=== PATIENT | female | born 1995 | race Caucasian/White ===

== ENCOUNTER 2020-08-08 15:15 | Emergency (ER) | payer OTHER, SELFPAY ==
--- NOTE | 2020-08-08 | ECG_ITS ---
Test Reason : CHEST PAIN Blood Pressure : / mmHG Vent. Rate : 085 BPM Atrial Rate : 085 BPM P-R Int : 122 ms QRS Dur : 098 ms QT Int : 362 ms P-R-T Axes : 055 063 045 degrees QTc Int : 430 ms Normal sinus rhythm Normal ECG When compared with ECG of 22-AUG-2019 09:19, No significant change was found Referred By: Generic ED Physician Electronically Signed By:MOIRA DURAND
--- NOTE | 2020-08-08 17:18 | XR_ITS ---
EXAMINATION: XR CHEST CLINICAL INFORMATION: Chest pain. COMPARISON: None TECHNIQUE: Frontal view of the chest was obtained. FINDINGS: The lungs are clear. The cardiomediastinal silhouette is normal in size. There is no pleural effusion or pneumothorax. No acute osseous abnormality. XR/XR chest 1V IMPRESSION: No acute cardiopulmonary findings.
[2020-08-08 19:04] VITALS: BP 119/67; PULSE 80; RESP 16; TEMP 36.9; O2SAT 98
[2020-08-08 19:15] VITALS: BP 138/85; PULSE 91; RESP 15; TEMP 37; O2SAT 99; BMI 33.4
[2020-08-08 19:45] LABS: MANUAL DIFF FLAG NO
[2020-08-08 19:46] LABS: Basophils Percent Auto 0.3 % (0-2); Eosinophils Absolute Auto 0.1 X10*3/uL (0.0-0.4); Hematocrit 40.3 % (37-47); Hemoglobin 13.3 g/dl (12.0-16.0); Imm Gran Abs Auto 0.03 X10*3/uL (0.00-0.03); Imm Gran Pct Auto 0.3 % (0.0-0.4); Lymphocytes Absolute Auto 3.2 X10*3/uL (1.2-4.9); Lymphocytes Percent Auto 31.6 % (20-40); Mean Corpuscular Volume 81.9 fL (80-98); Mean Platelet Volume 9.9 fL (9.4-12.3); Monocytes Absolute Auto 0.9 X10*3/uL (0.1-1.2); Neutrophils Absolute Auto 5.8 X10*3/uL (2.0-8.3); Neutrophils Percent Auto 57.8 % (45-73); Platelet Count 393 X10*3/uL (160-400); Red Blood Count 4.92 X10*6/uL (4.20-5.50); Red Cell Distribution Width 12.1 % (11.0-16.0); White Blood Count 10.1 X10*3/uL (4.8-10.8)
[2020-08-08 20:10] LABS: Anion Gap 12 (12-20); Blood Urea Nitrogen 11 mg/dL (9-16); Calcium 9.1 mg/dL (8.4-10.2); Carbon Dioxide 27 mmol/L (22-29); Chloride 104 mmol/L (96-108); Estimated Glomerular Filt Rate > 60; Glucose Random 85 mg/dL (60-115); Potassium 4.3 mmol/l (3.3-5.1); Sodium 139 mmol/L (135-145)
--- NOTE | 2020-08-08 20:12 | ED_ITS ---
HPI - Chest Pain General Chief Complaint: Chest Pain Stated Complaint: Chest pain Time Seen by Provider: 08/08/20 17:17 Source: patient Mode of arrival: ambulatory Limitations: no limitations History of Present Illness MD complaint: chest pain Pertinent past history: other (chronic chest pain) Onset (ago): day(s) (has been going on for long time but worse over past 3 days) Timing of current episode: constant Prior episodes: Yes Onset: during rest and during exertion Pain location: left chest Pain radiation: none Severity: similar to previous episodes Quality: tightness, aching and heaviness Relieving factors: nothing Exacerbating factors: palpation and movement Associated symptoms: nausea and dyspnea Treatment prior to arrival: none Related Data Previous Rx's Medication Instructions Recorded cyclobenzaprine 10 mg PO TID PRN #14 tab 08/08/20 lidocaine 1 patch TOPICAL DAILY PRN #10 ea 08/08/20 prednisone 40 mg PO DAILY 5 Days #10 tab 08/08/20 Allergies Allergy/AdvReac Type Severity Reaction Status Date / Time Sulfa (Sulfonamide Allergy Unknown SWOLLEN/CAMILA Verified 08/08/20 19:36 Antibiotics) H [SULFA (SULFONAMIDE ANTIBIOTICS)] oxycodone [From OXYCONTIN] AdvReac Unknown UNKNOWN Verified 08/08/20 19:36 Review of Systems Review of Systems: Constitutional : No Weight loss, No Fever, No Chills ENT/Mouth : No sore throat, No Rhinorrhea Eyes: No Eye Pain, No Swelling Cardiovascular : pos Chest Pain, pos SOB, no Dyspnea on Exertion, No Orthopnea, No Edema, No Palpitations Respiratory : No Cough, No Sputum Gastrointestinal : pos Nausea, No Vomiting, No Diarrhea, No abdominal Pain, No Hematochezia, No Melena Genitourinary : No Dysuria, No Urinary Frequency Musculoskeletal : No joint pain, No Myalgias, No Joint Swelling Skin : No Skin Lesions, No rash Neuro : No Weakness, No Numbness, No Dizziness, No Headache Psych : No Anxiety/Panic, No Depression Heme/Lymph: No Bruising, No Lymphadenopathy Endocrine : No Polyuria, No Polydipsia All other systems reviewed and are negative [facility] Past Medical History Attestation statement: The following information was validated with the patient. Medical History Asthma Normal colonoscopy Normal endoscopy Social History Social History Smoking Status: Never smoker Advance Directives: No Advance Directives Information Provided: Yes Physical Exam Vital Signs: Vital Signs: Last Vital Signs Temp 98.6 F 08/08/20 19:15 Pulse 91 08/08/20 19:15 Resp 15 08/08/20 19:15 BP 138/85 08/08/20 19:15 Pulse Ox 99 08/08/20 19:15 Body Mass Index 33.4 Appearance: Alert. Oriented X3. No acute distress. Eyes: Pupils equal, round and reactive to light. ENT: Pharynx normal. Neck: Normal inspection. Neck supple. CVS: Normal heart rate and rhythm. Pulses normal. Chest: very ttp along bilateral costochondral junction reproduces pain Respiratory: No respiratory distress. Breath sounds normal. Abdomen: Soft and nontender. Skin: Skin warm and dry. Normal skin color. Normal skin turgor. Extremities: No lower extremity edema. No calf ttp Neuro: Oriented X 3. No motor deficit. No sensory deficit. Course Course Course Narrative: ddimer negative at this time stable for DC MDM - Chest Pain MDM Narrative Medical decision making narrative: 25 yo female on control (patch) here with reproduceable CWP has had it in the past seems consistent with costochondritis - will give NSAIDs, flexeril - CXR, ekg, troponin x 1 and ddimer ordered due to brith control, dispo per results and findings. Lab Data Result diagrams: 08/08/20 19:35 08/08/20 19:35 Labs: Lab Results 08/08/20 08/08/20 08/08/20 Range/Units 19:35 19:35 19:35 WBC 10.1 (4.8-10.8) X10*3/uL RBC 4.92 (4.20-5.50) X10*6/uL Hgb 13.3 (12.0-16.0) g/dl Hct 40.3 (37-47) % MCV 81.9 (80-98) fL MCH 27.0 (27.0-33.0) pg MCHC 33.0 (31.0-35.0) g/dl RDW 12.1 (11.0-16.0) % Plt Count 393 (160-400) X10*3/uL MPV 9.9 (9.4-12.3) fL Immature Gran % (Auto) 0.3 (0.0-0.4) % Neut % (Auto) 57.8 (45-73) % Lymph % (Auto) 31.6 (20-40) % Forrest % (Auto) 9.0 (2-11) % Eos % (Auto) 1.0 (0-4) % Baso % (Auto) 0.3 (0-2) % Lymph # (Auto) 3.2 (1.2-4.9) X10*3/uL Forrest # (Auto) 0.9 (0.1-1.2) X10*3/uL Eos # (Auto) 0.1 (0.0-0.4) X10*3/uL Baso # (Auto) 0.0 (0.0-0.2) X10*3/uL Abs Immat Gran (auto) 0.03 (0.00-0.03) X10*3/uL Absolute Neuts (auto) 5.8 (2.0-8.3) X10*3/uL Absolute Nucleated RBC 0.000 (0.0-0.012) X10*3/uL Nucleated RBC % (auto) 0.0 (0.0-0.2) /100WBC D-Dimer < 200 NG/ML Hold Blue Top SEE NOTE Sodium 139 (135-145) mmol/L Potassium 4.3 (3.3-5.1) mmol/l Chloride 104 (96-108) mmol/L Carbon Dioxide 27 (22-29) mmol/L Anion Gap 12 (12-20) BUN 11 (9-16) mg/dL Creatinine 0.73 (0.5-1.4) mg/dL Estim Creat Clear Calc 115.0 Estimated GFR > 60 Random Glucose 85 (60-115) mg/dL Calcium 9.1 (8.4-10.2) mg/dL Troponin I High Sens (<3.5-17.0) ng/L 08/08/20 Range/Units 19:35 WBC (4.8-10.8) X10*3/uL RBC (4.20-5.50) X10*6/uL Hgb (12.0-16.0) g/dl Hct (37-47) % MCV (80-98) fL MCH (27.0-33.0) pg MCHC (31.0-35.0) g/dl RDW (11.0-16.0) % Plt Count (160-400) X10*3/uL MPV (9.4-12.3) fL Immature Gran % (Auto) (0.0-0.4) % Neut % (Auto) (45-73) % Lymph % (Auto) (20-40) % Forrest % (Auto) (2-11) % Eos % (Auto) (0-4) % Baso % (Auto) (0-2) % Lymph # (Auto) (1.2-4.9) X10*3/uL Forrest # (Auto) (0.1-1.2) X10*3/uL Eos # (Auto) (0.0-0.4) X10*3/uL Baso # (Auto) (0.0-0.2) X10*3/uL Abs Immat Gran (auto) (0.00-0.03) X10*3/uL Absolute Neuts (auto) (2.0-8.3) X10*3/uL Absolute Nucleated RBC (0.0-0.012) X10*3/uL Nucleated RBC % (auto) (0.0-0.2) /100WBC D-Dimer NG/ML Hold Blue Top Sodium (135-145) mmol/L Potassium (3.3-5.1) mmol/l Chloride (96-108) mmol/L Carbon Dioxide (22-29) mmol/L Anion Gap (12-20) BUN (9-16) mg/dL Creatinine (0.5-1.4) mg/dL Estim Creat Clear Calc Estimated GFR Random Glucose (60-115) mg/dL Calcium (8.4-10.2) mg/dL Troponin I High Sens < 3.5 (<3.5-17.0) ng/L ECG Data ECG #1: Attestation: I personally reviewed and interpreted this ECG as follows: ECG interpretation date: 08/08/20 ECG interpretation time: 20:13 Interpretation: Rate: 85 Rhythm: NSR [place]: normal Normal P waves. Normal WILL. Normal QRS complex. ST T wave : normal no ENIO qTC: normal prior studies: no acute ischemia The study has been interpreted contemporaneously by me. . Discharge Plan Discharge Clinical Impression: Acute costochondritis Patient Disposition: Home, Self-Care Instructions: Costochondritis (ED) Additional Instructions: return to ED for any worsening symptoms or concerns Prescriptions: New cyclobenzaprine 10 mg tablet 10 mg PO TID PRN (Reason: muscle spasm) Qty: 14 RF: 0 lidocaine 4 % adhesive patch,medicated 1 patch topical DAILY PRN (Reason: pain) Qty: 10 RF: 0 prednisone 20 mg tablet 40 mg PO DAILY 5 Days Qty: 10 RF: 0 Referrals: Antione Blum MD [Primary Care Provider] - 2 days (if not better) Stand Alone Forms: Work/School Release
[2020-08-08 20:15] LABS: Troponin-I High Sensitivity < 3.5 ng/L (<3.5-17.0)
[2020-08-08 20:36] LABS: D Dimer < 200 NG/ML
[2020-08-08 20:51] LABS: Glucose Urine UA NEG (NEG); Leukocyte Esterase Urine NEG (NEG); Nitrite Urine NEG (NEG); PH 6.5 (5.0-8.0); Urine Blood NEG (NEG); Urine Ketones NEG (NEG); Urine Protein NEG (NEG-TRACE)
[2020-08-08 20:52] LABS: Appearance Urine HAZY; Color Urine YELLOW
[2020-08-08] MEDS: Ketorolac Tromethamine 30 MG/ML VIAL IVPUSH (20:54)
[2020-08-08] MEDS: Cyclobenzaprine HCl 10 MG TABLET PO (20:55)
[2020-08-08] MEDS: Lidocaine 4 % Patch ADH..PATCH 1 PATCH TRANSDERMA (20:55)
[2020-08-08 20:57] LABS: UPreg QC Valid YES; Urine Pregnancy NEGATIVE (NEGATIVE)
== END 2020-08-08 21:00 | disposition home or self-care (01) ==
PROVIDERS: Emergency Provider Emergency Medicine; PCP Pediatrics
DX: M94.0 Chondrocostal junction syndrome [Tietze] (principal); Z79.899 Other long term (current) drug therapy
CPT/HCPCS: 36415; 71045; 80048; 81003; 81025; 84484; 85025; 85379; 93005; 96374; 99284; J1885

== ENCOUNTER 2020-11-06 | Emergency (ER) | payer OTHER, SELFPAY ==
[2020-11-06 00:01] VITALS: BP 118/58; PULSE 79; RESP 16; TEMP 36.6; O2SAT 98; BMI 35.6
[2020-11-06 01:26] LABS: Glucose Urine UA NEG (NEG); Leukocyte Esterase Urine NEG (NEG); Nitrite Urine NEG (NEG); PH 5.5 (5.0-8.0); Specific Gravity - Urine >= 1.030 (1.005-1.025); Urine Blood NEG (NEG); Urine Ketones NEG (NEG); Urine Protein NEG (NEG-TRACE)
[2020-11-06 01:28] LABS: Appearance Urine CLEAR; Color Urine YELLOW; UPreg QC Valid YES; Urine Pregnancy NEGATIVE (NEGATIVE)
--- NOTE | 2020-11-06 01:37 | ED_ITS ---
HPI - Female Genitourinary General Chief complaint: Urogenital-Female Stated complaint: ?UTI Time Seen by Provider: 11/06/20 01:37 Source: patient Mode of arrival: ambulatory Limitations: no limitations History of Present Illness HPI Narrative: 25 years old female who is otherwise healthy presented with dysuria since yesterday stinging sensation only when urinate, no urinary frequency, no blood in the urine, no vaginal bleed, no vaginal discharge, no concern of STDs. Related Data Previous Rx's Medication Instructions Recorded cyclobenzaprine 10 mg PO TID PRN #14 tab 08/08/20 lidocaine 1 patch TOPICAL DAILY PRN #10 ea 08/08/20 prednisone 40 mg PO DAILY 5 Days #10 tab 08/08/20 phenazopyridine [Pyridium] 200 mg PO TID #6 tab 11/06/20 Allergies Allergy/AdvReac Type Severity Reaction Status Date / Time Sulfa (Sulfonamide Allergy Unknown SWOLLEN/CAMILA Verified 08/08/20 19:36 Antibiotics) H [SULFA (SULFONAMIDE ANTIBIOTICS)] oxycodone [From OXYCONTIN] AdvReac Unknown UNKNOWN Verified 08/08/20 19:36 Review of Systems Review of Systems: All other systems are reviewed and are negative Constitutional: Reports as per HPI and Reports no additional constitutional complaints Eyes: Reports as per HPI and Reports no additional eye complaints Reports system reviewed and no additional complaints, except as documented Cardiovascular: Reports as per HPI and Reports no additional cardiovascular complaints Respiratory: Reports as per HPI and Reports no additional respiratory complaints Gastrointestinal: Reports as per HPI and Reports no additional gastrointestinal complaints Genitourinary: Reports no additional female genitourinary complaints Musculoskeletal: Reports no additional musculoskeletal complaints Skin/Breast: Reports system reviewed and no additional complaints, except as docu Psychiatric: Reports no additional psychiatric complaints Endocrine: Reports no additional endocrine complaints Hematologic/Lymphatic: Reports no additional hematologic/lymphatic complaints Allergic/Immunologic: Reports no additional allergic/immunologic complaints Reports system reviewed and no additional complaints, except as documented and Reports Abnormal speech present [facility] Past Medical History Medical History Asthma Normal colonoscopy Normal endoscopy Social History Social History Alcohol intake: never Smoking Status: Never smoker Use of substances other than those prescribed or required for medical reasons: No Advance Directives: No Advance Directives Information Provided: No Physical Exam Vital Signs: Vital Signs: Last Vital Signs Temp 97.8 F 11/06/20 00:01 Pulse 79 11/06/20 00:01 Resp 16 11/06/20 00:01 BP 118/58 L 11/06/20 00:01 Pulse Ox 98 11/06/20 00:01 Body Mass Index 35.6 Vital signs have been reviewed as appeared to be correct. Blood pressure normal. Heart rate normal. Respiration rate normal. Temperature normal. Oxygen saturation normal. Appearance: Alert. Oriented X3. No acute distress. Head: Normal external exam. Normocephalic. Atraumatic. No Clancy signs noted. No raccoon eyes noted Eyes: PERRLA. EOMI. Conjunctiva and sclera normal. Eyelids normal. ENT: TM's Normal. Pharynx normal. Uvula midline. Moist mucous membranes. No trismus noted. No drooling noted. No muffled voice noted. Neck: Normal inspection. Neck supple. FROM. No adenopathy. Thyroid Normal. No meningeal signs. No neck mass noted. CVS: Normal heart rate and rhythm. Heart sound normal. No murmurs noted. Pulses normal throughout. Respiratory: No respiratory distress. Painless inspiration. Breath sounds normal. No wheezes/rales/rhonchi noted. Chest nontender. No accessory muscle usage noted or decreased air movement noted. Abdomen: Soft and nontender. Bowel sounds normal in all 4 quadrants. No distention noted. No organomegaly noted. No visible injury noted. Back: No CVA tenderness. Full range of motion noted. Skin: Skin warm and dry. Normal skin color. Normal skin turgor. No rashes/lesions/lacerations noted. Extremities: No lower extremity edema. Extremities exhibit normal range of motion. Extremities nontender. Neuro: Oriented X 3. No motor deficit. No sensory deficit. Reflexes normal. Course Course Course Narrative: Assessment and plan. 25-year-old female came in last night and day of dysuria no urinary frequency or no blood in the urine, patient also has no concerns of STDs. UA is not reflecting [place] UTI. Patient was instructed to drink plenty of fluids and will start on hi radium to help with the dysuria. [facility] - Female Genitourinary Lab Data Attestation: I reviewed the patient's lab results. Labs: Lab Results 11/06/20 11/06/20 Range/Units 01:16 01:16 Urine Color YELLOW Urine Appearance CLEAR Urine pH 5.5 (5.0-8.0) Ur Specific [place] >= 1.030 H (1.005-1.025) Urine Protein NEG (NEG-TRACE) MG/DL Urine Glucose (UA) NEG (NEG) MG/DL Urine Ketones NEG (NEG) MG/DL Urine Blood NEG (NEG) Urine Nitrite NEG (NEG) Ur Leukocyte Esterase NEG (NEG) Urine Test NEGATIVE (NEGATIVE) Discharge Plan Discharge Clinical Impression: Dysuria Patient Disposition: Home, Self-Care Instructions: Dysuria (ED) Prescriptions: New phenazopyridine [Pyridium] 200 mg tablet 200 mg PO TID Qty: 6 RF: 0 No Action cyclobenzaprine 10 mg tablet 10 mg PO TID PRN (Reason: muscle spasm) Qty: 14 RF: 0 lidocaine 4 % adhesive patch,medicated 1 patch topical DAILY PRN (Reason: pain) Qty: 10 RF: 0 prednisone 20 mg tablet 40 mg PO DAILY 5 Days Qty: 10 RF: 0 Referrals: Antione Blum MD [Primary Care Provider] - 2 days
== END 2020-11-06 02:00 | disposition home or self-care (01) ==
PROVIDERS: Emergency Provider Emergency Medicine; PCP Internal Medicine
DX: R30.0 Dysuria (principal)
CPT/HCPCS: 81003; 81025; 99282; 99284

== ENCOUNTER 2021-04-08 20:48 | Emergency (ER) | payer OTHER, SELFPAY ==
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
[2021-04-08 21:54] VITALS: BP 103/58; PULSE 86; RESP 15; TEMP 37; O2SAT 98; BMI 34.7
[2021-04-08 22:59] VITALS: BP 126/75; PULSE 74; RESP 20; TEMP 36.3; O2SAT 99
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
[2021-04-09] VITALS: BP 124/76; PULSE 74; RESP 15; O2SAT 99
== END 2021-04-09 01:25 | disposition home or self-care (01) ==
PROVIDERS: Emergency Provider Internal Medicine; PCP Internal Medicine
DX: S00.11XA Contusion of right eyelid and periocular area, initial encounter (principal); H57.11 Ocular pain, right eye; Y04.8XXA Assault by other bodily force, initial encounter; Y93.9 Activity, unspecified; Y92.9 Unspecified place or not applicable; Y99.0 Civilian activity done for income or pay; Z79.899 Other long term (current) drug therapy
CPT/HCPCS: 70150; 99283; 99284

== ENCOUNTER 2021-05-17 23:28 | Emergency (ER) | payer OTHER, SELFPAY ==
[2021-05-18 00:07] VITALS: BP 130/87; PULSE 76; RESP 18; TEMP 36.9; O2SAT 96; BMI 34.7
--- NOTE | 2021-05-18 01:25 | ECG_ITS ---
Test Reason : HEADACHE/DIZZINESS Blood Pressure : / mmHG Vent. Rate : 060 BPM Atrial Rate : 060 BPM P-R Int : 124 ms QRS Dur : 090 ms QT Int : 440 ms P-R-T Axes : 045 035 021 degrees QTc Int : 440 ms Sinus rhythm with marked sinus arrhythmia RSR' or QR pattern in V1 suggests right ventricular conduction delay Abnormal ECG When compared with ECG of 08-AUG-2020 15:17, Heart rate has decreased Referred By: Rosita Capone Electronically Signed By:DASHAWN WILKES MD
--- NOTE | 2021-05-18 01:28 | ED.HA ---
HPI - Headache General Chief Complaint: Headache <Rosita Capone MD - Last Filed: 05/18/21 01:30> Stated Complaint: Headache/Weakness <Rosita Capone MD - Last Filed: 05/18/21 01:30> Time Seen by Provider: 05/18/21 01:25 <Rosita Capone MD - Last Filed: 05/18/21 01:30> History of Present Illness HPI Narrative: 26-year-old female presents today with having headaches. Headaches been ongoing since . Patient has a history of migraine. Similar to previous episodes. However patient claims she is having episodes of passing out with exertion. Patient claims that that happens when she was walking. It happens when she was exerting herself. She would feel lightheaded and then had a syncopal episode. There is no leg swelling. There is no history of blood clots. No chest pain associated with the symptoms. No diaphoresis. No focal weakness. Headache is mainly on the right side. Patient went to [facility] get an MRI of the head for similar headaches which was negative. No coughing or congestion or upper respiratory symptoms. No change in smell or taste. Patient been vaccinated for coronavirus. No sudden in the family. <Rosita Capone MD - Last Filed: 05/18/21 01:30> Related Data Home Medications: Previous Rx's Medication Instructions Recorded cyclobenzaprine 10 mg tablet 10 mg PO TID PRN #14 tab 08/08/20 lidocaine 4 % topical patch 1 patch TOPICAL DAILY PRN #10 ea 08/08/20 prednisone 20 mg tablet 40 mg PO DAILY 5 Days #10 tab 08/08/20 phenazopyridine 200 mg tablet 200 mg PO TID #6 tab 11/06/20 (Pyridium) ibuprofen 600 mg tablet 600 mg PO Q6H PRN #20 tab 04/09/21 <Rosita Capone MD - Last Filed: 05/18/21 01:30> Allergies/Adverse Reactions: Allergies Allergy/AdvReac Type Severity Reaction Status Date / Time Sulfa (Sulfonamide Allergy Unknown SWOLLEN/CAMILA Verified 08/08/20 19:36 Antibiotics) H [SULFA (SULFONAMIDE ANTIBIOTICS)] oxycodone [From OXYCONTIN] AdvReac Unknown UNKNOWN Verified 08/08/20 19:36 <Rosita Capone MD - Last Filed: 05/18/21 01:30> Review of Systems Review of Systems: No fever no chills no nausea no vomiting. No diaphoresis. <Rosita Capone MD - Last Filed: 05/18/21 01:30> Yes all other systems are reviewed and are negative <Rosita Capone MD - Last Filed: 05/18/21 01:30> [facility] Past Medical History Attestation statement: The following information was validated with the patient. <Rosita Capone MD - Last Filed: 05/18/21 01:30> Medical History: Medical History Asthma Migraine Normal colonoscopy Normal endoscopy <Rosita Capone MD - Last Filed: 05/18/21 01:30> Social History Social History: Social History Alcohol intake: never Patient Tobacco Use Status: Never used Tobacco Use of substances other than those prescribed or required for medical reasons: No Advance Directives: No Patient : No <Rosita Capone MD - Last Filed: 05/18/21 01:30> Physical Exam Vital Signs: Vital Signs: Last Vital Signs Temp 98.4 F 05/18/21 00:07 Pulse 66 05/18/21 02:39 Resp 15 05/18/21 02:39 BP 111/62 05/18/21 02:39 Pulse Ox 100 05/18/21 02:39 Body Mass Index 34.7 <Rosita Capone MD - Last Filed: 05/18/21 01:30> Vital Signs: Last Vital Signs Temp 98.4 F 05/18/21 00:07 Pulse 66 05/18/21 02:39 Resp 15 05/18/21 02:39 BP 111/62 05/18/21 02:39 Pulse Ox 100 05/18/21 02:39 Body Mass Index 34.7 <John Fontana MD - Last Filed: 05/18/21 03:53> Appearance: Alert. Oriented X3. No acute distress. Eyes: Pupils equal, round and reactive to light. ENT: Pharynx normal. Neck: Normal inspection. Neck supple. No lymph nodes noted. No crepitus CVS: Normal heart rate and rhythm. Pulses normal. Normal S1 and S2 Respiratory: No respiratory distress. Breath sounds normal. No Wheezing. No rales Abdomen: Soft and nontender. No rigidity. No distention. good BS x4 Skin: Skin warm and dry. Normal skin color. Normal skin turgor. Extremities: No lower extremity edema. Neurovascular intact to all extremities. No Lacerations. No Rash Neuro: Oriented X 3. No motor deficit. No sensory deficit. Moving all extermities. No slurred speech <Rosita Capone MD - Last Filed: 05/18/21 01:30> Course Course Course Narrative: 0346: I assumed care of this patient from my colleague, Dr. Rosita Capone pending the patient's D-dimer and 12 EKG. Patient has had syncopal/near syncopal episodes with her headache. Patient's D-dimer was below detectable limits. Twelve EKG revealed no evidence of for cardiac ischemia or injury. <John Fontana MD - Last Filed: 05/18/21 03:53> MDM - Headache Lab Data Result diagrams: : 05/18/21 01:51 05/18/21 01:51 <Rosita Capone MD - Last Filed: 05/18/21 01:30> Labs: Lab Results 05/18/21 05/18/21 05/18/21 Range/Units 01:51 01:51 01:51 WBC 18.5 H (4.8-10.8) X10*3/uL RBC 4.35 (4.20-5.50) X10*6/uL Hgb 11.8 L (12.0-16.0) g/dl Hct 35.3 L (37-47) % MCV 81.1 (80-98) fL MCH 27.1 (27.0-33.0) pg MCHC 33.4 (31.0-35.0) g/dl RDW 12.8 (11.0-16.0) % Plt Count 353 (160-400) X10*3/uL MPV 9.9 (9.4-12.3) fL Immature Gran % (Auto) 0.4 (0.0-0.4) % Neut % (Auto) 65.1 (45-73) % Lymph % (Auto) 26.7 (20-40) % [place]agher % (Auto) 7.2 (2-11) % Eos % (Auto) 0.3 (0-4) % Baso % (Auto) 0.3 (0-2) % Lymph # (Auto) 5.0 H (1.2-4.9) X10*3/uL [place] # (Auto) 1.3 H (0.1-1.2) X10*3/uL Eos # (Auto) 0.1 (0.0-0.4) X10*3/uL Baso # (Auto) 0.1 (0.0-0.2) X10*3/uL Abs Immat Gran (auto) 0.08 H (0.00-0.03) X10*3/uL Absolute Neuts (auto) 12.0 H (2.0-8.3) X10*3/uL Absolute Nucleated RBC 0.000 (0.0-0.012) X10*3/uL Nucleated RBC % (auto) 0.0 (0.0-0.2) /100WBC D-Dimer < 200 NG/ML Sodium 137 (135-145) mmol/L Potassium 3.9 (3.3-5.1) mmol/L Chloride 105 (96-108) mmol/L Carbon Dioxide 25 (22-29) mmol/L Anion Gap 11 L (12-20) BUN 11 (9-16) mg/dL Creatinine 0.66 (0.5-1.4) mg/dL Estim Creat Clear Calc 128.7 Estimated GFR > 60 Random Glucose 117 H (60-115) mg/dL Calcium 8.6 (8.4-10.2) mg/dL Total Bilirubin 0.2 (0.0-1.0) mg/dL Direct Bilirubin < 0.2 (0.0-0.5) mg/dL AST 12 (5-31) U/L ALT 17 (0-31) U/L Alkaline Phosphatase 57 (39-117) U/L Troponin I High Sens (<3.5-17.0) ng/L Total Protein 7.1 (6.5-8.0) g/dL Albumin 3.6 (3.5-5.0) g/dL Urine Color Urine Appearance Urine pH (5.0-8.0) Ur Specific [place] (1.005-1.025) Urine Protein (NEG-TRACE) MG/DL Urine Glucose (UA) (NEG) MG/DL Urine Ketones (NEG) MG/DL Urine Blood (NEG) Urine Nitrite (NEG) Ur Leukocyte Esterase (NEG) Urine Test (NEGATIVE) 05/18/21 05/18/21 05/18/21 Range/Units 01:51 02:08 02:08 WBC (4.8-10.8) X10*3/uL RBC (4.20-5.50) X10*6/uL Hgb (12.0-16.0) g/dl Hct (37-47) % MCV (80-98) fL MCH (27.0-33.0) pg MCHC (31.0-35.0) g/dl RDW (11.0-16.0) % Plt Count (160-400) X10*3/uL MPV (9.4-12.3) fL Immature Gran % (Auto) (0.0-0.4) % Neut % (Auto) (45-73) % Lymph % (Auto) (20-40) % [place] % (Auto) (2-11) % Eos % (Auto) (0-4) % Baso % (Auto) (0-2) % Lymph # (Auto) (1.2-4.9) X10*3/uL [place] # (Auto) (0.1-1.2) X10*3/uL Eos # (Auto) (0.0-0.4) X10*3/uL Baso # (Auto) (0.0-0.2) X10*3/uL Abs Immat Gran (auto) (0.00-0.03) X10*3/uL Absolute Neuts (auto) (2.0-8.3) X10*3/uL Absolute Nucleated RBC (0.0-0.012) X10*3/uL Nucleated RBC % (auto) (0.0-0.2) /100WBC D-Dimer NG/ML Sodium (135-145) mmol/L Potassium (3.3-5.1) mmol/L Chloride (96-108) mmol/L Carbon Dioxide (22-29) mmol/L Anion Gap (12-20) BUN (9-16) mg/dL Creatinine (0.5-1.4) mg/dL Estim Creat Clear Calc Estimated GFR Random Glucose (60-115) mg/dL Calcium (8.4-10.2) mg/dL Total Bilirubin (0.0-1.0) mg/dL Direct Bilirubin (0.0-0.5) mg/dL AST (5-31) U/L ALT (0-31) U/L Alkaline Phosphatase (39-117) U/L Troponin I High Sens < 3.5 (<3.5-17.0) ng/L Total Protein (6.5-8.0) g/dL Albumin (3.5-5.0) g/dL Urine Color YELLOW Urine Appearance CLEAR Urine pH 6.0 (5.0-8.0) Ur Specific [place] >= 1.030 H (1.005-1.025) Urine Protein TRACE (NEG-TRACE) MG/DL Urine Glucose (UA) NEG (NEG) MG/DL Urine Ketones NEG (NEG) MG/DL Urine Blood NEG (NEG) Urine Nitrite NEG (NEG) Ur Leukocyte Esterase NEG (NEG) Urine Test NEGATIVE (NEGATIVE) <Rosita Capone MD - Last Filed: 05/18/21 01:30> Lab Results 05/18/21 05/18/21 05/18/21 Range/Units 01:51 01:51 01:51 WBC 18.5 H (4.8-10.8) X10*3/uL RBC 4.35 (4.20-5.50) X10*6/uL Hgb 11.8 L (12.0-16.0) g/dl Hct 35.3 L (37-47) % MCV 81.1 (80-98) fL MCH 27.1 (27.0-33.0) pg MCHC 33.4 (31.0-35.0) g/dl RDW 12.8 (11.0-16.0) % Plt Count 353 (160-400) X10*3/uL MPV 9.9 (9.4-12.3) fL Immature Gran % (Auto) 0.4 (0.0-0.4) % Neut % (Auto) 65.1 (45-73) % Lymph % (Auto) 26.7 (20-40) % Meagher % (Auto) 7.2 (2-11) % Eos % (Auto) 0.3 (0-4) % Baso % (Auto) 0.3 (0-2) % Lymph # (Auto) 5.0 H (1.2-4.9) X10*3/uL [place] # (Auto) 1.3 H (0.1-1.2) X10*3/uL Eos # (Auto) 0.1 (0.0-0.4) X10*3/uL Baso # (Auto) 0.1 (0.0-0.2) X10*3/uL Abs Immat Gran (auto) 0.08 H (0.00-0.03) X10*3/uL Absolute Neuts (auto) 12.0 H (2.0-8.3) X10*3/uL Absolute Nucleated RBC 0.000 (0.0-0.012) X10*3/uL Nucleated RBC % (auto) 0.0 (0.0-0.2) /100WBC D-Dimer < 200 NG/ML Sodium 137 (135-145) mmol/L Potassium 3.9 (3.3-5.1) mmol/L Chloride 105 (96-108) mmol/L Carbon Dioxide 25 (22-29) mmol/L Anion Gap 11 L (12-20) BUN 11 (9-16) mg/dL Creatinine 0.66 (0.5-1.4) mg/dL Estim Creat Clear Calc 128.7 Estimated GFR > 60 Random Glucose 117 H (60-115) mg/dL Calcium 8.6 (8.4-10.2) mg/dL Total Bilirubin 0.2 (0.0-1.0) mg/dL Direct Bilirubin < 0.2 (0.0-0.5) mg/dL AST 12 (5-31) U/L ALT 17 (0-31) U/L Alkaline Phosphatase 57 (39-117) U/L Troponin I High Sens (<3.5-17.0) ng/L Total Protein 7.1 (6.5-8.0) g/dL Albumin 3.6 (3.5-5.0) g/dL Urine Color Urine Appearance Urine pH (5.0-8.0) Ur Specific [place] (1.005-1.025) Urine Protein (NEG-TRACE) MG/DL Urine Glucose (UA) (NEG) MG/DL Urine Ketones (NEG) MG/DL Urine Blood (NEG) Urine Nitrite (NEG) Ur Leukocyte Esterase (NEG) Urine Test (NEGATIVE) 05/18/21 05/18/21 05/18/21 Range/Units 01:51 02:08 02:08 WBC (4.8-10.8) X10*3/uL RBC (4.20-5.50) X10*6/uL Hgb (12.0-16.0) g/dl Hct (37-47) % MCV (80-98) fL MCH (27.0-33.0) pg MCHC (31.0-35.0) g/dl RDW (11.0-16.0) % Plt Count (160-400) X10*3/uL MPV (9.4-12.3) fL Immature Gran % (Auto) (0.0-0.4) % Neut % (Auto) (45-73) % Lymph % (Auto) (20-40) % Meagher % (Auto) (2-11) % Eos % (Auto) (0-4) % Baso % (Auto) (0-2) % Lymph # (Auto) (1.2-4.9) X10*3/uL [place] # (Auto) (0.1-1.2) X10*3/uL Eos # (Auto) (0.0-0.4) X10*3/uL Baso # (Auto) (0.0-0.2) X10*3/uL Abs Immat Gran (auto) (0.00-0.03) X10*3/uL Absolute Neuts (auto) (2.0-8.3) X10*3/uL Absolute Nucleated RBC (0.0-0.012) X10*3/uL Nucleated RBC % (auto) (0.0-0.2) /100WBC D-Dimer NG/ML Sodium (135-145) mmol/L Potassium (3.3-5.1) mmol/L Chloride (96-108) mmol/L Carbon Dioxide (22-29) mmol/L Anion Gap (12-20) BUN (9-16) mg/dL Creatinine (0.5-1.4) mg/dL Estim Creat Clear Calc Estimated GFR Random Glucose (60-115) mg/dL Calcium (8.4-10.2) mg/dL Total Bilirubin (0.0-1.0) mg/dL Direct Bilirubin (0.0-0.5) mg/dL AST (5-31) U/L ALT (0-31) U/L Alkaline Phosphatase (39-117) U/L Troponin I High Sens < 3.5 (<3.5-17.0) ng/L Total Protein (6.5-8.0) g/dL Albumin (3.5-5.0) g/dL Urine Color YELLOW Urine Appearance CLEAR Urine pH 6.0 (5.0-8.0) Ur Specific [place] >= 1.030 H (1.005-1.025) Urine Protein TRACE (NEG-TRACE) MG/DL Urine Glucose (UA) NEG (NEG) MG/DL Urine Ketones NEG (NEG) MG/DL Urine Blood NEG (NEG) Urine Nitrite NEG (NEG) Ur Leukocyte Esterase NEG (NEG) Urine Test NEGATIVE (NEGATIVE) <John Fontana MD - Last Filed: 05/18/21 03:53> ECG Data Attestation: I personally reviewed and interpreted this ECG as follows: <John Fontana MD - Last Filed: 05/18/21 03:53> Interpretation: 0241: Normal sinus rhythm with a rate of 60, normal [place] interval, QRS duration and QTC interval, inverted T-waves in V1 and V2, no ST segment elevation, no ST segment depression, no PACs, no PVCs. This is a normal EKG. <John Fontana MD - Last Filed: 05/18/21 03:53> Discharge Plan Discharge Clinical Impression: Vasovagal syncope Headache Qualifiers: Headache type: unspecified <Rosita Capone MD - Last Filed: 05/18/21 01:30> Patient Disposition: Home, Self-Care <Rosita Capone MD - Last Filed: 05/18/21 01:30> Instructions: Syncope (ED), Acute Headache (ED) <Rosita Capone MD - Last Filed: 05/18/21 01:30> Additional Instructions: Your blood work unremarkable. Your EKG was normal. Continue taking medications as prescribed by [facility]. Follow-up with your doctor in 2 days. Please return to the emergency department if your symptoms get worse or if you develop any symptoms that are concerning to you. <Rosita Capone MD - Last Filed: 05/18/21 01:30> Prescriptions: No Action phenazopyridine [Pyridium] 200 mg tablet 200 mg PO TID Qty: 6 RF: 0 cyclobenzaprine 10 mg tablet 10 mg PO TID PRN (Reason: muscle spasm) Qty: 14 RF: 0 lidocaine 4 % adhesive patch,medicated 1 patch topical DAILY PRN (Reason: pain) Qty: 10 RF: 0 prednisone 20 mg tablet 40 mg PO DAILY 5 Days Qty: 10 RF: 0 ibuprofen 600 mg tablet 600 mg PO Q6H PRN (Reason: pain) Qty: 20 RF: 0 <Rosita Capone MD - Last Filed: 05/18/21 01:30>
[2021-05-18 01:55] LABS: Basophils Absolute Auto 0.1 X10*3/uL (0.0-0.2); Basophils Percent Auto 0.3 % (0-2); Eosinophils Absolute Auto 0.1 X10*3/uL (0.0-0.4); Eosinophils Percent Auto 0.3 % (0-4); Hematocrit 35.3 % (37-47); Hemoglobin 11.8 g/dl (12.0-16.0); Imm Gran Abs Auto 0.08 X10*3/uL (0.00-0.03); Imm Gran Pct Auto 0.4 % (0.0-0.4); Lymphocytes Percent Auto 26.7 % (20-40); MANUAL DIFF FLAG NO; Mean Corpuscular HGB Conc 33.4 g/dl (31.0-35.0); Mean Corpuscular Hemoglobin 27.1 pg (27.0-33.0); Mean Corpuscular Volume 81.1 fL (80-98); Mean Platelet Volume 9.9 fL (9.4-12.3); Monocytes Absolute Auto 1.3 X10*3/uL (0.1-1.2); Monocytes Percent Auto 7.2 % (2-11); Neutrophils Percent Auto 65.1 % (45-73); Platelet Count 353 X10*3/uL (160-400); Red Blood Count 4.35 X10*6/uL (4.20-5.50); Red Cell Distribution Width 12.8 % (11.0-16.0); White Blood Count 18.5 X10*3/uL (4.8-10.8)
[2021-05-18] MEDS: Metoclopramide HCl 10 MG/2 ML VIAL IVPUSH (01:56)
[2021-05-18] MEDS: diphenhydrAMINE HCL 50 MG/ML VIAL IVPUSH (01:57)
[2021-05-18] MEDS: 0.9 % Sodium Chloride 1,000 ML 999 ML IV (01:57)
[2021-05-18] MEDS: Ketorolac Tromethamine 15 MG/ML VIAL 30 MG IVPUSH (01:57)
[2021-05-18 02:07] LABS: D Dimer < 200 NG/ML
[2021-05-18 02:13] LABS: Appearance Urine CLEAR; Color Urine YELLOW; Glucose Urine UA NEG (NEG); Leukocyte Esterase Urine NEG (NEG); Nitrite Urine NEG (NEG); Specific Gravity - Urine >= 1.030 (1.005-1.025); Urine Blood NEG (NEG); Urine Ketones NEG (NEG); Urine Protein TRACE MG/DL (NEG-TRACE)
[2021-05-18 02:14] LABS: UACC Culture Trigger NO
[2021-05-18 02:15] LABS: UPreg QC Valid YES; Urine Pregnancy NEGATIVE (NEGATIVE)
[2021-05-18 02:21] LABS: Alanine Aminotransferase 17 U/L (0-31); Albumin Level 3.6 g/dL (3.5-5.0); Alkaline Phosphatase 57 U/L (39-117); Anion Gap 11 (12-20); Aspartate Amino Transferase 12 U/L (5-31); Bilirubin Direct < 0.2 mg/dL (0.0-0.5); Bilirubin Total 0.2 mg/dL (0.0-1.0); Blood Urea Nitrogen 11 mg/dL (9-16); Calcium 8.6 mg/dL (8.4-10.2); Carbon Dioxide 25 mmol/L (22-29); Chloride 105 mmol/L (96-108); Creatinine Clr Calc Pharmacy 128.7; Estimated Glomerular Filt Rate > 60; Glucose Random 117 mg/dL (60-115); Potassium 3.9 mmol/L (3.3-5.1); Sodium 137 mmol/L (135-145); Total Protein 7.1 g/dL (6.5-8.0)
[2021-05-18 02:25] VITALS: RESP 16
[2021-05-18 02:27] LABS: Troponin-I High Sensitivity < 3.5 ng/L (<3.5-17.0)
[2021-05-18 02:38] VITALS: BP 111/62; BP 113/70; PULSE 66; PULSE 70
[2021-05-18 02:39] VITALS: BP 111/62; BP 113/66; PULSE 66; PULSE 76; RESP 15; O2SAT 100
--- NOTE | 2021-05-18 03:22 | PC.NURSE ---
pt is sleeping. pt report significant improvement.
== END 2021-05-18 04:17 | disposition home or self-care (01) ==
PROVIDERS: Emergency Medicine Emergency Medical Services; Emergency Provider Emergency Medicine Emergency Medical Services
DX: R55 Syncope and collapse (principal); R51.9 Headache, unspecified; Z79.899 Other long term (current) drug therapy
CPT/HCPCS: 36415; 80048; 80076; 81003; 81025; 84484; 85025; 85379; 93005; 96361; 96374; 96375; 99284; 99285; J1200; J1885; J2765

== ENCOUNTER 2021-07-17 00:18 | Emergency (ER) | payer OTHER, SELFPAY ==
--- NOTE | ~2021-07-17 | CT_ITS ---
EXAMINATION: CT ABDOMEN AND PELVIS WITH CONTRAST CLINICAL INFORMATION: Right lower quadrant pain. COMPARISON: None TECHNIQUE: Multidetector volumetric images were obtained from the superior aspect of the liver through the pubic symphysis following administration 85 mL of Omnipaque 350 intravenous contrast. Sagittal and coronal reformatted images were obtained on the technologist's workstation. Oral contrast: No This CT examination was performed using dose optimization techniques as appropriate, variously including the following: *Automated exposure control *Adjustment of mA and/or kV according to patient size (this includes techniques or standardized protocols for targeted exams where dose is matched to indication/reason for exam; i.e. extremities or head) *Use of iterative reconstruction technique DLP: 656 mGy-cm FINDINGS: LUNG BASES: The visualized lung bases are unremarkable. LIVER, GALLBLADDER, AND BILIARY TREE: Diffuse decreased hepatic attenuation without focal abnormality. No gallbladder/biliary abnormality. PANCREAS: Unremarkable. SPLEEN: Unremarkable. ADRENAL GLANDS: Unremarkable. KIDNEYS AND URETERS: Tiny interpolar focus in the right kidney measures 0.5 cm (image 33, series 3). A linear low-attenuation focus anteriorly in the lower pole measures 0.5 cm as well (image 37, series 3). Punctate nonobstructing adrenal calculi are seen bilaterally. A [employer] calculus anteriorly in the interpolar right kidney measures 0.2 cm (image 289, series 4). A 0.2 cm calculus laterally in the left lower pole is also seen (image 312, series 4). No hydroureteronephrosis. BLADDER: Mildly distended without focal or intraluminal abnormality. GASTROINTESTINAL TRACT: The stomach and small bowel are unremarkable. The cecum extends inferiorly into the right hemipelvis without abnormality. The appendix is normal. The colon is unremarkable. ABDOMINAL WALL: No significant hernia is appreciated. LYMPH NODES: No lymphadenopathy. VASCULAR: Unremarkable. PELVIC VISCERA: Anteverted/anteflexed uterus. A small low-attenuation focus is seen in the endometrium at the level the fundus anteriorly. The cervix is unremarkable. No adnexal abnormality. OSSEOUS STRUCTURES: L5-S1 is transitional with sacralization of L5 and a rudimentary disc at L5-S1. CT/CT abdomen pelvis w con IMPRESSION: 1. No acute intra-abdominal/pelvic abnormality to explain the patient's pain. Normal appearance of the appendix. No evidence for acute appendicitis. 2. Small low-attenuation focus in the endometrium at the level the fundus. No other uterine/adnexal abnormality. If there is concern for , further evaluation with transvaginal pelvic ultrasound is recommended.
[2021-07-17 00:34] VITALS: BP 121/64; PULSE 87; RESP 14; TEMP 36.8; O2SAT 99; BMI 35.8
[2021-07-17 02:49] LABS: MANUAL DIFF FLAG NO
[2021-07-17 02:54] LABS: Basophils Percent Auto 0.3 % (0-2); Eosinophils Absolute Auto 0.1 X10*3/uL (0.0-0.4); Eosinophils Percent Auto 1.1 % (0-4); Hematocrit 35.7 % (37.0-47.0); Hemoglobin 11.7 g/dl (12.0-16.0); Imm Gran Abs Auto 0.04 X10*3/uL (0.00-0.03); Imm Gran Pct Auto 0.3 % (0.0-0.4); Lymphocytes Absolute Auto 3.1 X10*3/uL (1.2-4.9); Lymphocytes Percent Auto 25.4 % (20-40); Mean Corpuscular HGB Conc 32.8 g/dl (31.0-35.0); Mean Corpuscular Volume 82.3 fL (80.0-98.0); Mean Platelet Volume 9.9 fL (9.4-12.3); Monocytes Absolute Auto 0.9 X10*3/uL (0.1-1.2); Monocytes Percent Auto 7.8 % (2-11); Neutrophils Absolute Auto 7.9 x10*3/uL (2.0-8.3); Neutrophils Percent Auto 65.1 % (45-73); Platelet Count 310 X10*3/uL (160-400); Red Blood Count 4.34 X10*6/uL (4.20-5.50); Red Cell Distribution Width 12.8 % (11.0-16.0); White Blood Count 12.1 X10*3/uL (4.8-10.8)
[2021-07-17 03:10] LABS: Alanine Aminotransferase 32 U/L (0-31); Albumin Level 3.6 g/dL (3.5-5.0); Alkaline Phosphatase 64 U/L (39-117); Anion Gap 10 (12-20); Aspartate Amino Transferase 23 U/L (5-31); Bilirubin Direct < 0.2 mg/dL (0.0-0.5); Bilirubin Total < 0.2 mg/dL (0.0-1.0); Blood Urea Nitrogen 7 mg/dL (9-16); Carbon Dioxide 26 mmol/L (22-29); Chloride 106 mmol/L (96-108); Creatinine Clr Calc Pharmacy 137.1; Estimated Glomerular Filt Rate > 60; Glucose Random 130 mg/dL (60-115); Lipase 75 U/L (8-78); Potassium 3.9 mmol/L (3.3-5.1); Sodium 138 mmol/L (135-145); Total Protein 6.9 g/dL (6.5-8.0)
[2021-07-17 03:13] LABS: COVID-19 Test Negative (Negative)
[2021-07-17 05:34] LABS: Appearance Urine HAZY; Color Urine YELLOW; Glucose Urine UA NEG (NEG); Leukocyte Esterase Urine NEG (NEG); Nitrite Urine NEG (NEG); Specific Gravity - Urine >= 1.030 (1.005-1.025); Urine Blood NEG (NEG); Urine Ketones NEG (NEG); Urine Protein NEG (NEG-TRACE)
[2021-07-17 05:37] LABS: UPreg QC Valid YES; Urine Pregnancy WEAKLY POSITIVE (NEGATIVE)
[2021-07-17 05:44] LABS: UACC Culture Trigger NO
[2021-07-17 05:50] VITALS: BP 107/60; PULSE 72; RESP 16; TEMP 36.8; O2SAT 100
[2021-07-17] MEDS: Acetaminophen 325 MG TABLET 975 MG PO (05:59)
[2021-07-17] MEDS: Ketorolac Tromethamine 30 MG/ML VIAL 15 MG IVPUSH (06:00)
[2021-07-17 06:05] LABS: HCG Quantitative 233 mIU/mL
--- NOTE | 2021-07-17 06:27 | ED_ITS ---
HPI - Abdominal Pain General Chief Complaint: Nausea/Vomiting/Diarrhea Stated Complaint: Abd pain Time Seen by Provider: 07/17/21 05:27 Source: patient Mode of arrival: ambulatory History of Present Illness HPI narrative: 26-year-old female presents with nausea, vomiting, lightheadedness and complaints right lower quadrant abdominal cramping and sharp pain that started today and reports chills but no fevers. Related Data Previous Rx's Medication Instructions Recorded cyclobenzaprine 10 mg tablet 10 mg PO TID PRN #14 tab 08/08/20 lidocaine 4 % topical patch 1 patch TOPICAL DAILY PRN #10 ea 08/08/20 prednisone 20 mg tablet 40 mg PO DAILY 5 Days #10 tab 08/08/20 phenazopyridine 200 mg tablet 200 mg PO TID #6 tab 11/06/20 (Pyridium) ibuprofen 600 mg tablet 600 mg PO Q6H PRN #20 tab 04/09/21 Allergies Allergy/AdvReac Type Severity Reaction Status Date / Time Sulfa (Sulfonamide Allergy Unknown SWOLLEN/CAMILA Verified 08/08/20 19:36 Antibiotics) H [SULFA (SULFONAMIDE ANTIBIOTICS)] oxycodone [From OXYCONTIN] AdvReac Unknown UNKNOWN Verified 08/08/20 19:36 Review of Systems Review of Systems Pertinent positives and negatives as stated in HPI 10 point review of systems is otherwise negative. Physical Exam Vital Signs: Vital Signs: Last Vital Signs Temp 98.3 F 07/17/21 05:50 Pulse 72 07/17/21 05:50 Resp 16 07/17/21 05:50 BP 107/60 07/17/21 05:50 Pulse Ox 100 07/17/21 05:50 BMI result Body Mass Index 35.8 VITAL SIGNS: Reviewed. GENERAL: Well developed, well nourished, in no acute distress. HEAD: Normocephalic/atraumatic EYES: PERRLA, EOMI OROPHARYNX: no oral lesions noted, posterior pharynx clear LUNGS: Normal breath sounds. No adventitious sounds or accessory muscle use. SpO2<100> CARDIOVASCULAR: Regular rate and rhythm without noted murmurs ABDOMEN: Soft, tenderness in right lower quadrant without rebound, non-distended with bowel sounds, no CVA tenderness SKIN: Inspection of the skin reveals no rashes NEUROLOGIC: Alert and oriented x 4. Strength and sensation to light touch were grossly intact x 4. Course Course Course Narrative: 26-year-old female with history and clinical presentation suggestive renal colic, appendicitis, ectopic. On review of all investigations findings most consistent with acute appendicitis and it is noted that patient plaza s a mildly positive urine with a beta hCG -233. I discussed the beta HCG values with our cashier courtesy booth and given the low levels it would be unlikely to identify an ectopic. I then had a shared decision-making conversation with the patient regarding the pros and cons of proceeding with CT scan at this early state of which may impact the developing embryo. In addition, it was explained to the patient that appendicitis in of itself if it goes untreated can lead to loss. Signed out to Dr Cortez. MDM - Abdominal Pain Lab Data Result diagrams: 07/17/21 02:30 07/17/21 02:30 Labs: Lab Results 07/17/21 07/17/21 07/17/21 Range/Units 02:30 02:30 02:30 WBC 12.1 H (4.8-10.8) X10*3/uL RBC 4.34 (4.20-5.50) X10*6/uL Hgb 11.7 L (12.0-16.0) g/dl Hct 35.7 L (37.0-47.0) % MCV 82.3 (80.0-98.0) fL MCH 27.0 (27.0-33.0) pg MCHC 32.8 (31.0-35.0) g/dl RDW 12.8 (11.0-16.0) % Plt Count 310 (160-400) X10*3/uL MPV 9.9 (9.4-12.3) fL Immature Gran % (Auto) 0.3 (0.0-0.4) % Neut % (Auto) 65.1 (45-73) % Lymph % (Auto) 25.4 (20-40) % [place] % (Auto) 7.8 (2-11) % Eos % (Auto) 1.1 (0-4) % Baso % (Auto) 0.3 (0-2) % Lymph # (Auto) 3.1 (1.2-4.9) X10*3/uL [place] # (Auto) 0.9 (0.1-1.2) X10*3/uL Eos # (Auto) 0.1 (0.0-0.4) X10*3/uL Baso # (Auto) 0.0 (0.0-0.2) X10*3/uL Abs Immat Gran (auto) 0.04 H (0.00-0.03) X10*3/uL Absolute Neuts (auto) 7.9 (2.0-8.3) x10*3/uL Absolute Nucleated RBC 0.000 (0.0-0.012) X10*3/uL Nucleated RBC % (auto) 0.0 (0.0-0.2) /100WBC Sodium 138 (135-145) mmol/L Potassium 3.9 (3.3-5.1) mmol/L Chloride 106 (96-108) mmol/L Carbon Dioxide 26 (22-29) mmol/L Anion Gap 10 L (12-20) BUN 7 L (9-16) mg/dL Creatinine 0.63 (0.5-1.4) mg/dL Estim Creat Clear Calc 137.1 Estimated GFR > 60 Random Glucose 130 H (60-115) mg/dL Calcium 9.0 (8.4-10.2) mg/dL Total Bilirubin < 0.2 (0.0-1.0) mg/dL Direct Bilirubin < 0.2 (0.0-0.5) mg/dL AST 23 D (5-31) U/L ALT 32 H (0-31) U/L Alkaline Phosphatase 64 (39-117) U/L Total Protein 6.9 (6.5-8.0) g/dL Albumin 3.6 (3.5-5.0) g/dL Lipase 75 (8-78) U/L Beta HCG, Quant 233 mIU/mL Urine Color Urine Appearance Urine pH (5.0-8.0) Ur Specific [place] (1.005-1.025) Urine Protein (NEG-TRACE) MG/DL Urine Glucose (UA) (NEG) MG/DL Urine Ketones (NEG) MG/DL Urine Blood (NEG) Urine Nitrite (NEG) Ur Leukocyte Esterase (NEG) Urine Test (NEGATIVE) COVID-19 (ALTA) Negative (Negative) COVID-19 Clin Com See Note 07/17/21 07/17/21 Range/Units 05:23 05:23 WBC (4.8-10.8) X10*3/uL RBC (4.20-5.50) X10*6/uL Hgb (12.0-16.0) g/dl Hct (37.0-47.0) % MCV (80.0-98.0) fL MCH (27.0-33.0) pg MCHC (31.0-35.0) g/dl RDW (11.0-16.0) % Plt Count (160-400) X10*3/uL MPV (9.4-12.3) fL Immature Gran % (Auto) (0.0-0.4) % Neut % (Auto) (45-73) % Lymph % (Auto) (20-40) % [place] % (Auto) (2-11) % Eos % (Auto) (0-4) % Baso % (Auto) (0-2) % Lymph # (Auto) (1.2-4.9) X10*3/uL [place] # (Auto) (0.1-1.2) X10*3/uL Eos # (Auto) (0.0-0.4) X10*3/uL Baso # (Auto) (0.0-0.2) X10*3/uL Abs Immat Gran (auto) (0.00-0.03) X10*3/uL Absolute Neuts (auto) (2.0-8.3) x10*3/uL Absolute Nucleated RBC (0.0-0.012) X10*3/uL Nucleated RBC % (auto) (0.0-0.2) /100WBC Sodium (135-145) mmol/L Potassium (3.3-5.1) mmol/L Chloride (96-108) mmol/L Carbon Dioxide (22-29) mmol/L Anion Gap (12-20) BUN (9-16) mg/dL Creatinine (0.5-1.4) mg/dL Estim Creat Clear Calc Estimated GFR Random Glucose (60-115) mg/dL Calcium (8.4-10.2) mg/dL Total Bilirubin (0.0-1.0) mg/dL Direct Bilirubin (0.0-0.5) mg/dL AST (5-31) U/L ALT (0-31) U/L Alkaline Phosphatase (39-117) U/L Total Protein (6.5-8.0) g/dL Albumin (3.5-5.0) g/dL Lipase (8-78) U/L Beta HCG, Quant mIU/mL Urine Color YELLOW Urine Appearance HAZY Urine pH 6.0 (5.0-8.0) Ur Specific [place] >= 1.030 H (1.005-1.025) Urine Protein NEG (NEG-TRACE) MG/DL Urine Glucose (UA) NEG (NEG) MG/DL Urine Ketones NEG (NEG) MG/DL Urine Blood NEG (NEG) Urine Nitrite NEG (NEG) Ur Leukocyte Esterase NEG (NEG) Urine Test WEAKLY POSITIVE H (NEGATIVE) COVID-19 (ALTA) (Negative) COVID-19 Clin Com Discharge Plan Discharge Clinical Impression: Right lower quadrant abdominal pain Patient Disposition: Still a Patient Prescriptions: No Action phenazopyridine [Pyridium] 200 mg tablet 200 mg PO TID Qty: 6 RF: 0 cyclobenzaprine 10 mg tablet 10 mg PO TID PRN (Reason: muscle spasm) Qty: 14 RF: 0 lidocaine 4 % adhesive patch,medicated 1 patch topical DAILY PRN (Reason: pain) Qty: 10 RF: 0 prednisone 20 mg tablet 40 mg PO DAILY 5 Days Qty: 10 RF: 0 ibuprofen 600 mg tablet 600 mg PO Q6H PRN (Reason: pain) Qty: 20 RF: 0 PMFSH Past Medical History Source: nursing notes reviewed Medical History Asthma Migraine Normal colonoscopy Normal endoscopy Social History Social History Alcohol intake: never Patient Tobacco Use Status: Never used Tobacco Advance Directives: No Patient : No
[2021-07-17] MEDS: iohexoL 350 MG/ML 100 ML INFUS..BTL IV (08:08)
[2021-07-17 09:23] VITALS: BP 109/59; PULSE 90; RESP 12; TEMP 37.1; O2SAT 98
== END 2021-07-17 09:31 | disposition home or self-care (01) ==
PROVIDERS: Student in an Organized Health Care Education/Training Program; Emergency Provider Emergency Medicine
DX: R11.2 Nausea with vomiting, unspecified (principal); R10.31 Right lower quadrant pain; Z20.822 Contact with and (suspected) exposure to COVID-19; Z33.1 Pregnant state, incidental
CPT/HCPCS: 36415; 74177; 80053; 81003; 81025; 82248; 83690; 84702; 85025; 87635; 96372; 99284; J1885; Q9967

== ENCOUNTER 2023-11-16 16:41 | Emergency (ER) | payer OTHER, SELFPAY ==
[2023-11-16] VITALS (7 sets, daily range): BP systolic 104–139; BP diastolic 49–86; PULSE 78–118; RESP 16–20; TEMP 36.4–37.8; O2SAT 97–99; BMI 36.2
--- NOTE | 2023-11-16 17:02 | ED_ITS ---
HPI - General Adult General Chief complaint: Nausea/Vomiting/Diarrhea Stated complaint: ?Dehydrated/Sent from pcp Time Seen by Provider: 11/16/23 17:17 Source: patient Mode of arrival: ambulatory Limitations: no limitations History of Present Illness HPI narrative: 28 y/o female presents today with N/V/D and bodyaches since 5 am this morning. She has telehealth appointment with her PCP this afternoon and they instructed her to go to ER due to concern for dehydration. Denies any potential food triggers- had meatloaf last night. Denies any sick contacts. Reports feeling cold but denies fevers. Had 6 episodes of watery diarrhea since this morning, no blood in stool. Reports 12 episodes of vomiting since this morning, no blood and was food at first, now just bilious. Unable to keep anything down, vomits medicine, fluids. Reports episodes of syncope- says she was laying on the couch with her partner and talking, all the suddenly pass out. Reports sternal chest pain. Denies any cold symptoms, no sore throat, cough, nasal congestion. Denies possibly of - states that she has nexplanon. complaint: n/v/d Onset (ago): hour(s) Location: abdomen Radiation: non-radiation Severity: severe Severity scale (1-10): 10 Quality: aching and constant Pain Consistency: constant and colicky Relieving factors: rest Associated symptoms: malaise, nausea/vomiting and shortness of breath Related Data Previous Rx's ?Medication ?Instructions ?Recorded cyclobenzaprine 10 mg tablet 10 mg PO TID PRN muscle spasm #14 08/08/20 tabs lidocaine 4 % topical patch 1 patch topical DAILY PRN pain #10 08/08/20 ea prednisone 20 mg tablet 40 mg (2 x 20 mg) PO DAILY 5 days 08/08/20 #10 tabs phenazopyridine 200 mg tablet 200 mg PO TID 6 doses #6 tabs 11/06/20 (Pyridium) ibuprofen 600 mg tablet 600 mg PO Q6H PRN pain #20 tabs 04/09/21 ondansetron 4 mg disintegrating 4 mg PO TID PRN nausea and 11/16/23 tablet vomiting #7 tabs Allergies Allergy/AdvReac Type Severity Reaction Status Date / Time Sulfa (Sulfonamide Allergy Unknown SWOLLEN/CAMILA Verified 04/12/24 17:04 Antibiotics) H [SULFA (SULFONAMIDE ANTIBIOTICS)] oxycodone [From OXYCONTIN] AdvReac Unknown UNKNOWN Verified 11/16/23 17:04 Review of Systems 2 Review of Systems: Yes all other systems are reviewed and are negative [facility] Past Medical History Medical History Asthma Migraine Normal colonoscopy Normal endoscopy Social History Social History Alcohol intake: never Patient Tobacco Use Status: Never used Tobacco Smoked in Last 30 Days: No Use of substances other than those prescribed or required for medical reasons: No Advance Directives: No Advance Directives Information Provided: No Physical Exam ED Vital Signs: Vital Signs - 24 hr 11/16/23 17:02 11/16/23 18:45 11/16/23 18:53 Temperature 99.9 F Pulse Rate 115 H 102 H 109 H Respiratory Rate 18 Blood Pressure 124/79 109/49 L 139/69 Pulse Oximetry 98 Oxygen Delivery Method Room Air 11/16/23 18:54 11/16/23 18:57 Temperature 100.1 F Pulse Rate 118 H 102 H Respiratory Rate 18 Blood Pressure 126/61 126/61 Pulse Oximetry 99 Oxygen Delivery Method Room Air BMI result Body Mass Index 36.2 Appearance: Alert. Oriented X3. Tired appearing Head: normocephalic, atraumatic. Neck: Normal inspection. CVS: Normal heart rate and rhythm. Pulses normal. Respiratory: No respiratory distress. Breath sounds normal. Abdomen: Soft, lower abdomen mildly tender to palpation without rebound or guarding. +BS x4 hyperactive bowel sounds throughout Skin: Skin warm and dry. Normal skin color. Normal skin turgor. No rashes. Extremities: No lower extremity edema. No joint swelling. Neuro/psych: Oriented X 3. Course Course Course Narrative: This is an RME: Additional HPI, ROS, PE not included below will be deferred to primary provider. Patient is a 28-year-old female who presents to the emergency department, nausea, vomiting since 0500, unableto tolerate PO intake, diarrhea, myalgias, headache Medications Administered Discontinued Medications Generic Name Dose Route Start Last Admin Trade Name Freq PRN Reason Stop Dose Admin Acetaminophen 975 mg 11/16/23 18:37 11/16/23 19:28 Acetaminophen 325 Mg Tablet PO 11/16/23 18:38 975 mg ONCE ONE Administration Sodium Chloride 1,000 mls @ 999 mls/hr 11/16/23 17:30 11/16/23 19:30 Ns IVCONT 11/16/23 18:30 Infused .Q1H1M GIANA Infusion Sodium Chloride 1,000 mls @ 999 mls/hr 11/16/23 18:45 11/16/23 20:30 Ns IVCONT 11/16/23 19:45 Infused .Q1H1M GIANA Infusion Ketorolac Tromethamine 30 mg 11/16/23 20:33 11/16/23 20:39 Ketorolac Tromethamine 30 Mg/Ml Vial IVPUSH 11/16/23 20:34 30 mg ONCE ONE Administration Ondansetron HCl 4 mg 11/16/23 17:17 11/16/23 18:11 Ondansetron Hcl 4 Mg/2 Ml Vial IVPUSH 11/16/23 17:18 4 mg ONCE ONE Administration Medical Decision Making Medical Decision Making [facility] Narrative: 28 y/o female presents today with N/V/D since 5 am this morning. Denies potential spoiled food or sick contact. On exam, she is tired appearing and reports frequent episodes of watery diarrhea and bilious vomiting. Order GI PCR panel to evaluate for infectious etiology. Due to acute onset and severity of symptoms, high clinical suspicion for viral gastroenteritis. Ordered IV zofran for relief of nausea. Will administer IVF for fluid repletion. Patient able to ambulate to restroom for stool sample- slow gait but ambulates independently. ECG normal sinus rhythm with ventricular rate of 106. No ST changes, elevation or depression. Will reevaluate after IVF bolus x2 and zofran. Signed out to Jimenez Chin SUPERVISOR [employer] WAY Differential Diagnosis Differential Diagnoses: The differential diagnosis associated with the presentation includes viral gastroenteritis- norovirus, c diff, viral URI, dehydration, CONRAD, electrolyte derangment due to GI losses Admission/Observation Consideration of admission/observation: Escalation of care including admission/observation considered Lab Data [facility] Lab Attestation statement: I reviewed the patient's lab results. mild leukocytosis and mild transaminitis, no CONRAD 11/16/23 17:59 11/16/23 17:59 Labs: Lab Results 11/16/23 11/16/23 11/16/23 Range/Units 17:53 17:59 20:41 WBC 12.5 H (4.8-10.8) X10*3/uL RBC 5.39 D (4.20-5.50) X10*6/uL Hgb 13.9 (12.0-16.0) g/dl Hct 41.5 (37.0-47.0) % MCV 77.0 L (80.0-98.0) fL MCH 25.8 L (27.0-33.0) pg MCHC 33.5 (31.0-35.0) g/dl RDW 13.7 (11.0-16.0) % Plt Count 301 (160-400) X10*3/uL MPV 9.2 L (9.4-12.3) fL Immature Gran % (Auto) 0.4 (0.0-0.4) % Neut % (Auto) 90.8 H (45-73) % Lymph % (Auto) 4.3 L (20-40) % [place] % (Auto) 4.3 (2-11) % Eos % (Auto) 0.0 (0-4) % Baso % (Auto) 0.2 (0-2) % Lymph # (Auto) 0.5 L (1.2-4.9) X10*3/uL [place] # (Auto) 0.5 (0.1-1.2) X10*3/uL Eos # (Auto) 0.0 (0.0-0.4) X10*3/uL Baso # (Auto) 0.0 (0.0-0.2) X10*3/uL Abs Immat Gran (auto) 0.05 H (0.00-0.03) X10*3/uL Absolute Neuts (auto) 11.4 H (2.0-8.3) x10*3/uL Absolute Nucleated RBC 0.000 (0.0-0.012) X10*3/uL Nucleated RBC % (auto) 0.0 (0.0-0.2) /100WBC Smear Tech's Comments VERIFIED Sodium 138 (135-145) mmol/L Potassium 3.8 (3.3-5.1) mmol/L Chloride 107 (96-108) mmol/L Carbon Dioxide 24 (22-29) mmol/L Anion Gap 11 L (12-20) BUN 11 (9-16) mg/dL Creatinine 0.71 (0.5-1.4) mg/dL Estim Creat Clear Calc 121.3 Estimated GFR > 60 Random Glucose 112 (60-115) mg/dL Calcium 8.9 (8.4-10.2) mg/dL Total Bilirubin 0.6 (0.0-1.0) mg/dL AST 58 H (5-31) U/L ALT 69 H (0-31) U/L Alkaline Phosphatase 90 (39-117) U/L Total Protein 8.2 H (6.5-8.0) g/dL Albumin 4.0 (3.5-5.0) g/dL Lipase 18 (8-78) U/L Beta HCG, Quant < 2 mIU/mL Urine Color Yellow Urine Appearance Cloudy Urine pH 6.5 (5.0-9.0) Ur Specific [place] 1.025 (1.005-1.025) Urine Protein Negative (Neg-Trace) mg/dL Urine Glucose (UA) Negative (Negative) mg/dL Urine Ketones Negative (Negative) mg/dL Urine Blood Negative (Negative) Urine Nitrite Negative (Negative) Ur Leukocyte Esterase Negative (Negative) Urine Test NEGATIVE (NEGATIVE) Stl C. cayetanensis PCR Not Detected (Not Detect.) Stool Rotavirus A PCR Not Detected (Not Detect.) Stl Adenov F 40/41 PCR Not Detected (Not Detect.) Stool Astrovirus (PCR) Not Detected (Not Detect.) Stool Campylobacter PCR Not Detected (Not Detect.) Stool Cryptosporidium PCR Not Detected (Not Detect.) Stl Sh Tox Pr E STEC PCR Not Detected (Not Detect.) Stool E coli O157 PCR Not applicable (Not Detect.) Stl Enterotoxigenic E PCR Not Detected (Not Detect.) Stool EPEC (PCR) Not Detected (Not Detect.) Stool EAEC (PCR) Not Detected (Not Detect.) Stl E. histolytica PCR Not Detected (Not Detect.) Stool Giardia Lamblia PCR Not Detected (Not Detect.) Stl P. shigelloides PCR Not Detected (Not Detect.) Stool Salmonella PCR Not Detected (Not Detect.) Stool Sapovirus (PCR) Detected A (Not Detect.) Stl Shigella/EIEC PCR Not Detected (Not Detect.) St Y.enterocolitica PCR Not Detected (Not Detect.) Stool Vibrio (PCR) Not Detected (Not Detect.) Stl Vibrio cholerae PCR Not Detected (Not Detect.) Stl Norovirus GI/GII PCR See Comment (Not Detect.) C. difficile Tox B Gene NEGATIVE (Negative) Influenza Type A (PCR) NEGATIVE (Negative) Influenza Type B (PCR) NEGATIVE (Negative) RSV RNA Qual (PCR) NEGATIVE (Negative) SARS-CoV-2 RNA (RT-PCR) NEGATIVE (Negative) Independent Interpretation I performed an independent interpretation of an: EKG Interpretation: ECG normal sinus rhythm with ventricular rate of 106. No ST changes, elevation or depression. QTc normal. Tests considered The following testing was considered but not selected: considered CT scan of the abd/pelvis but no significant abdominal tenderness Prescription Management I considered prescription management with: Pain Medication and Antibiotic Critical Care Time Critical Care Time Critical Care Time: Yes Total Critical Care Time: 34 Attestation: I have personally provided critical care time exclusive of time spent on separately billable procedures. Time includes review of lab data, frequent bedside re-evaluations and monitoring for potential decompensation. Intervention performed as documented. Discharge Plan Discharge Clinical Impression: Gastroenteritis Patient Disposition: Home, Self-Care Instructions: Gastroenteritis (DC) Additional Instructions: You lab workup today was unremarkable. Your urine test was negative for infection and . You most likely have a viral GI bug also known as gastroenteritis. Treatment is supportive care, symptoms usually resolve on their own in 48-72 hours. Recommend rest and plenty of oral hydration. Stick to a bland diet like soup and toast while you are not feeling well. Take the prescribed medication as needed for nausea. Recommend over the counter Pepto Bismol or Imodium for upset stomach and diarrhea. Follow up with your doctor as needed. If you develop new or worsening symptoms call 911 or come back to the ER for further evaluation. Prescriptions: New ondansetron 4 mg tablet,disintegrating 4 mg PO TID PRN (Reason: nausea and vomiting) Qty: 7 0RF No Action phenazopyridine [Pyridium] 200 mg tablet 200 mg PO TID Qty: 6 0RF cyclobenzaprine 10 mg tablet 10 mg PO TID PRN (Reason: muscle spasm) Qty: 14 0RF lidocaine 4 % adhesive patch,medicated 1 patch topical DAILY PRN (Reason: pain) Qty: 10 0RF Rx Instructions: may leave on for up to 12 hrs prednisone 20 mg tablet 40 mg PO DAILY 5 Days Qty: 10 0RF ibuprofen 600 mg tablet 600 mg PO Q6H PRN (Reason: pain) Qty: 20 0RF Referrals: Antione Blum MD [Primary Care Provider] - Stand Alone Forms: Work/School Release Interventions: ED Discharge Assessment Last Done: 11/16/23 22:33 Discharge Date/Time: 11/16/23 22:34 Print Language: Luxembourgish
--- OUTSIDE RECORDS SUMMARY | 2023-11-16 17:16 | XMS_ITS | Continuity of Care Document ---
Author Organization [facility] Nikolay will[employer]po Paymentss [facility] Address [address] [place] [address]- Care Team Providers Care Building Insulation Supervisor Name Role Phone Lorraine Zendejas MD Primary Care Physician Encounter [facility] Date(s): 10/13/21 - 11/12/21 [facility] Concordiahammad ParedesTempo Paymentss [facility] [address] [place], [place] [address] Allergies, Adverse Reactions, Alerts Substance Reaction Severity Status sulfADIAZINE Unknown Active oxyCODONE Active Immunizations Given and Recorded Vaccine Date Status Refusal Reason influenza virus vaccine, inactivated 06/08/20 Give n influenza virus vaccine, inactivated 06/06/19 Give n influenza virus vaccine, inactivated 06/18/18 Give n influenza virus vaccine, inactivated 05/08/17 Give n influenza virus vaccine, inactivated 09/13/15 Give n influenza virus vaccine, inactivated 07/17/12 Give n influenza virus vaccine, inactivated 09/11/11 Give n influenza virus vaccine, inactivated 07/04/10 Give n tetanus/diphtheria/pertussis, acel(Tdap) 02/12/19 Given tetanus/diphtheria/pertussis, acel(Tdap) 05/08/17 Given tetanus/diphtheria/pertussis, acel(Tdap) 07/04/10 Given pneumococcal 23-valent vaccine 06/18/18 Given Human Papillomavirus Vaccine 01/29/14 Given Human Papillomavirus Vaccine 09/11/11 Given Human Papillomavirus Vaccine 11/23/08 Given Meningococcal Conjugate Vaccine 01/29/14 Given Meningococcal Conjugate Vaccine 07/04/10 Given Varicella Virus Vaccine 07/04/10 Given Varicella Virus Vaccine 03/30/98 Given Tet/Diphth/Acel, Pertussis (oldterm) 11/23/08 Give n Poliovirus Vaccine, Inactivated 04/05/01 Given Poliovirus Vaccine, Inactivated 1 97 Given Poliovirus Vaccine, Inactivated 2 97 Given Poliovirus Vaccine, Inactivated 3 97 Given Diphtheria/Tet/Pertussis, Acel (oldterm) 04/05/01 Given Diphtheria/Tet/Pertussis, Acel (oldterm) 07/05/98 Given Diphtheria/Tet/Pertussis, Acel (oldterm) 97 Given Diphtheria/Tet/Pertussis, Acel (oldterm) 97 Given Diphtheria/Tet/Pertussis, Acel (oldterm) 97 Given Measles/Mumps/Rubella Virus Vaccine 03/30/01 Given Measles/Mumps/Rubella Virus Vaccine 01/28/01 Given Haemophilus B Conj Vaccine (oldterm) 07/05/98 Give n Haemophilus B Conj Vaccine (oldterm) 97 Give n Haemophilus B Conj Vaccine (oldterm) 97 Give n Haemophilus B Conj Vaccine (oldterm) 97 Give n Hepatitis B Vaccine (old term) 97 Given Hepatitis B Vaccine (old term) 97 Given Hepatitis B Vaccine (old term) 97 Given 1Admin Note: ORAL 2Admin Note: ORAL 3Admin Note: ORAL Medications Advair HFA 115 mcg / 21 mcg 2 puffs, Inhalation, 2 times a day, # 60 each, 5 Refills, Maintenance, 11/16/20 15:34:00 EDT, Aerosol, [facility] #[id number], Partial fill upon patient request if the prescription is for a schedule II opioid drug., 2 puffs Inhalation 2 times a d... Start Date: 11/16/20 Status: Ordered aspirin 81 mg oral delayed release tablet 2 tablet = 162 mg, By Mouth, Daily, start at 12 weeks, 09/11/21, # 90 tablet, 0 Refills, Maintenance,08/16/21 13:37:00 EST, CR Tablet, [facility] #[id number], Partial fill upon patient request ifthe prescription is for a schedule II opioid drug.,... Start Date: 08/16/21 Status: Ordered Benadryl 25 mg oral capsule 2 capsule = 50 mg, By Mouth, Daily at bedtime, PRN Pain , Moderate, # 100 capsule, 0 Refills, Maintenance, 11/08/21 15:02:00 EDT, Capsule, [facility] #[id number], Partial fill upon patient request if the prescription is for a schedule II opioid d... Start Date: 11/08/21 Status: Ordered clotrimazole 1% vaginal cream with applicator 1 application, Vaginally, Daily at bedtime, Apply vaginally each night for 1 week., # 45 Gm, 0 Refills, Maintenance, 10/12/21 14:02:00 EST, Cream, [facility] #[id number], Partial fill upon patient request if the prescription is for a schedule II... Start Date: 10/12/21 Status: Ordered Lidoderm 5% film 1 patch, Topically, Daily, (remove patch(s) after 12 hours), # 30 patch, 0 Refills, Maintenance, 10/12/20 11:07:00 EST, [facility][id number], Partial fill upon patient request if the prescription is for a schedule II opioid drug., 1 patch Topic... Start Date: 10/12/20 Status: Ordered MiraLax oral powder for reconstitution = 17 Gm, By Mouth, Daily, dissolve in water before taking, # 527 Gm, 0 Refills, Maintenance, 08/16/21 13:56:00 EST, REC Powder, [facility] #[id number], Partial fill upon patient request if the prescription is for a schedule II opioid drug., 17 Gm... Start Date: 08/16/21 Status: Ordered Multivitamins with Folic Acid 1 mg oral tablet 1 tablet, By Mouth, Daily, # 90 tablet, 3 Refills, Maintenance, 09/16/21 15:48:00 EST, Tablet, [facility] #[id number], Partial fill upon patient request if the prescription is for a schedule II opioid drug., 1 tablet By Mouth Daily, 157, cm, 0... Start Date: 09/16/21 Status: Ordered Multivitamins with Vitamin B Complex, Vitamin C, Minerals and L- Methylfolate oral capsule 1 capsule, By Mouth, Daily, # 30 capsule, 11 Refills, Maintenance, 08/05/21 17:50:00 EST, Capsule, [facility] #[id number], Partial fill upon patient request if the prescription is for a scheduleII opioid drug., 1 capsule By Mouth Daily, 157, cm,... Start Date: 08/05/21 Status: Ordered ProAir HFA 90 mcg/inh inhalation aerosol with adapter 2, puffs, Inhalation, Every 4 hours, PRN, # 8.5 Gm, Refills 5, Tot. Refills 5, Maintenance, 01/06/21 8:08:00 EDT, Aerosol, Route to Pharmacy Electronically, [id number], [facility] #[id number], 157, cm, 11/17/20 9:48:00 E... Start Date: 01/06/21 Status: Ordered Reglan 5 mg oral tablet 2 tablet = 10 mg, By Mouth, Once, # 28 tablet, 0 Refills, Soft Stop, 11/08/21 15:03:00 EDT, Tablet,[facility] #[id number], Partial fill upon patient request if the prescription is for a schedule II opioid drug., 154, cm, 11/08/21 14:36:00 EDT, H... Start Date: 11/08/21 Status: Ordered Spacer for asthma Spacer for asthma, See Instructions, # 1 units, Refills 0, Tot. Refills 0, Maintenance, Spacer for asthma, 10/30/18 11:47:08 EDT, Compound Start Date: 10/30/18 Status: Ordered Tylenol 325 mg oral tablet See Instructions, PRN, 1000mg By Mouth Every 4 hours, Refills 0, Maintenance, for pain, 10/03/21 22:39:00 EST, Instructions Replace Required Details, Partial fill upon patient request if the prescription is for a schedule II opioid drug. 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
--- OUTSIDE RECORDS SUMMARY | 2023-11-16 17:16 | XMS_ITS | Continuity of Care Document ---
Author Organization [facility] Address [address] [place] [address]- Care Team Providers Care Music Copyist Name Role Phone Aashish IBARRA, Lorraine Primary Care Physician [phone] Encounter [facility] Date(s): 11/28/22 - 12/28/[address] [address] Attending Physician: Roque Villlea Admitting Physician: Roque Villela Referring Physician: AdmtrRoque Allergies, Adverse Reactions, Alerts Substance Reaction Severity Status sulfADIAZINE Unknown Active oxyCODONE Active Immunizations Given and Recorded Vaccine Date Status Refusal Reason tetanus/diphtheria/pertussis, acel(Tdap) 01/04/22 Given tetanus/diphtheria/pertussis, acel(Tdap) 02/12/19 Given tetanus/diphtheria/pertussis, acel(Tdap) 05/08/17 Given tetanus/diphtheria/pertussis, acel(Tdap) 07/04/10 Given influenza virus vaccine, inactivated 06/06/21 Sarmad rded influenza virus vaccine, inactivated 06/08/20 Give n influenza virus vaccine, inactivated 06/06/19 Give n influenza virus vaccine, inactivated 06/18/18 Give n influenza virus vaccine, inactivated 05/08/17 Give n influenza virus vaccine, inactivated 09/13/15 Give n influenza virus vaccine, inactivated 07/17/12 Give n influenza virus vaccine, inactivated 09/11/11 Give n influenza virus vaccine, inactivated 07/04/10 Give n SARS-CoV-2 (COVID-19) mRNA-1273 vaccine 01/12/21 R ecorded SARS-CoV-2 (COVID-19) mRNA-1273 vaccine 12/15/20 R ecorded pneumococcal 23-valent vaccine 06/18/18 Given Human Papillomavirus [...] 2Admin Note: ORAL 3Admin Note: ORAL Medications acetaminophen 325 mg oral tablet 650 mg, 2, tablet, By Mouth, Every 4 hours, PRN, # 30 tablet, Refills 0, Tot. Refills 0, Maintenance, for pain, 08/15/22 15:08:00 EST, Route to Pharmacy Electronically, [facility] #[id number], Partial fill upon patient request if the prescription... Start Date: 08/15/22 Status: Ordered Advair HFA 115 mcg / 21 mcg 2 puffs, Inhalation, 2 times a day, # 1 each, 5 Refills, Maintenance, 05/03/22 16:02:00 EDT, Aerosol, [facility] #[id number], Partial fill upon patient request if the prescription is for a schedule II opioid drug., 2 puffs Inhalation 2 times a da... Start Date: 05/03/22 Stop Date: 10/30/22 Status: Ordered albuterol 0.083% inhalation solution 3 mL = 2.5 mg, Inhalation, Every 6 hours, PRN Wheezing/Shortness of Breath, # 60 each, 1 Refills, Maintenance, 11/09/22 13:41:00 EDT, Solution, [facility] #[id number], Partial fill upon patient request if the prescription is for a schedule II opi... Start Date: 11/09/22 Status: Ordered albuterol CFC free 90 mcg/inh inhalation aerosol 2, puffs, Inhalation, Every 6 hours, PRN, for 30 days, # 8.5 Gm, Refills 11, Tot. Refills 11, Hard Stop 04/28/23 11:45:00 EDT, 05/03/22 11:45:00 EDT, Aerosol, Route to Pharmacy Electronically, [id number], [facility]... Start Date: 05/03/22 Stop Date: 04/28/23 Status: Ordered cetirizine 5 mg oral tablet = 5 mg, By Mouth, Daily, # 30 tablet, 0 Refills, Maintenance, 11/17/22 10:48:00 EDT, Tablet, [facility] #[id number], Partial fill upon patient request if the prescription is for a schedule II opioid drug., 156, cm, 11/17/22 8:44:00 EDT, Height, 8... Start Date: 11/17/22 Status: Ordered ibuprofen 400 mg oral tablet 400 mg, 1, tablet, By Mouth, Every 4 hours, PRN, # 60 tablet, Refills 0, Tot. Refills 0, Maintenance, for pain, 11/17/22 10:49:00 EDT, Route to Pharmacy Electronically, [facility] #[id number], Partial fill upon patient request if the prescription... Start Date: 11/17/22 Status: Ordered lidocaine 1.8% topical film 1 patch, Topically, Daily, leave on up to 12 hours, # 30 each, 0 Refills, Maintenance, 11/17/22 10:47:00 EDT, Film, [facility] #[id number], Partial fill upon patient request if the prescription is for a schedule II opioid drug., 1 patch Topically... Start Date: 11/17/22 Status: Ordered MiraLax oral powder for reconstitution = 17 Gm, By Mouth, Daily, dissolve in water before taking, # 527 Gm, 0 Refills, Maintenance, 11/17/22 10:47:00 EDT, REC Powder, [facility] #[id number], Partial fill upon patient request if the prescription is for a schedule II opioid drug., 17 Gm... Start Date: 11/17/22 Status: Ordered Spacer for asthma Spacer for asthma, See Instructions, # 1 each, Refills 0, Tot. Refills 0, Maintenance, Spacer for asthma inhaler., 11/09/22 13:40:00 EDT, Compound, 156, cm, 10/31/22 12:58:00 EDT, Height, 83, kg, 05/03/22 11:39:00 EDT, Dry Weight Start Date: 11/09/22 Status: Ordered SUMAtriptan 100 mg oral tablet 1 tablet = 100 mg, By Mouth, Daily, PRN for migraine headache, may repeat dose once in 2 hours. No more than 2 doses in 24 hours. No more than 3 times per week., # 9 tablet, 0 Refills, Acute 01/07/2317:30:00 EDT, 11/07/22 17:29:00 EDT, Tablet, [facility]... Start Date: 11/07/22 Stop Date: 01/07/23 Status: Ordered Topamax 50 mg oral tablet 1 tablet = 50 mg, By Mouth, 2 times a day, # 60 tablet, 2 Refills, Maintenance, 11/07/22 17:30:00 EDT, Tablet, [facility] #[id number], Partial fill upon patient request if the prescription is for a schedule II opioid drug., 156, cm, 10/31/22 12:5... Start Date: 11/07/22 Status: Ordered Problem List Condition Confirmation Course Effective Dates Status Health St atus Informant Anemia Confirmed Active Asthma Confirmed Active COVID-19 1 Confirmed 08/15/22 Active COVID Confirmed Active Depression Confirmed Active Headache Confirmed Active History of pre-eclampsia Confirmed Active Obese class I Confirmed Active Uterine scar from previous delivery Confirmed Active 1Problem added by Discern Expert Social History Social History Type Response Smoking Status Never (less than 100 in lifetime) entered on: 02/15/22 Sex Female Patient Care team information Care Team Personnel Name: Gauri Pascual Position: [facility] RN Member Role: Primary Care Nurse Name: Lorraine Zendejas MD Position: [facility] Physician - Primary Care Member Role: PCP Address: Address: [address] [place] [address]- Care Team Related Persons Name: RELL PHELPS Address: home [address] [address] Name: RUSLAN ABREU Address: [address] Address: home [address] [address] [place] Name: NAY DEL ANGEL Address: home [address] [place] [address] Name: PRAVIN PARKER Address: [address] [place] [address] Name: ADITHYA HAYDEN Address: [address] Address: home [address] [address] [place] Name: PRAVIN HAYDEN Address: [address] [place] [address]
--- OUTSIDE RECORDS SUMMARY | 2023-11-16 17:16 | XMS_ITS | Continuity of Care Document ---
Author Organization [facility] Address [address] [place] [address]- Care Team Providers Care Integration Project Manager Name Role Phone Aashish IBARRA, Lorraine Primary Care Physician Encounter [facility] Date(s): 05/19/21 - 06/18/[address] [address]- Allergies, Adverse Reactions, Alerts Substance Reaction Severity [...] 5 Refills, Maintenance, 11/16/20 15:34:00 EDT, Aerosol, [facility] #[id number], Partial fill upon patient request if the prescription is for a schedule II opioid drug., 2 puffs Inhalation 2 times a d... Start Date: 11/16/20 Status: Ordered Cipro 500 mg oral tablet 1 tablet = 500 mg, By Mouth, Every 12 hours, for 5 days, # 10 tablet, 0 Refills, Acute 06/20/21 12:11:00 EST, 06/15/21 12:11:00 EST, Tablet, [facility] #[id number], Partial fill upon patient request if the prescription is for a schedule II opioid... Start Date: 06/15/21 Stop Date: 06/20/21 Status: Ordered cyclobenzaprine 10 mg oral tablet 1, tablet, By Mouth, 3 times a day, PRN, # 45 tablet, Refills 0, Tot. Refills 0, Acute, NEEDED FOR SPASM, 08/25/20 9:53:00 EST, Route to Pharmacy Electronically, [facility] #[id number], 157, cm, 06/08/20 15:12:00 EST, Height, 84.5, kg, ... Start Date: 08/25/20 Status: Ordered Lidoderm 5% film 1 patch, Topically, Daily, (remove patch(s) after 12 hours), # 30 patch, 0 Refills, Maintenance, 10/12/20 11:07:00 EST, [facility] #[id number], Partial fill upon patient request if the prescription is for a schedule II opioid drug., 1 patch Topic... Start Date: 10/12/20 Status: Ordered ProAir HFA 90 mcg/inh inhalation aerosol with adapter 2, puffs, Inhalation, Every 4 hours, PRN, # 8.5 Gm, Refills 5, Tot. Refills 5, Maintenance, 01/06/21 8:08:00 EDT, Aerosol, Route to Pharmacy Electronically, [id number], [facility] #[id number], 157, cm, 11/17/20 9:48:00 E... Start Date: 01/06/21 Status: Ordered Spacer for asthma Spacer for asthma, See Instructions, # 1 units, Refills 0, Tot. Refills 0, Maintenance, Spacer for asthma, 10/30/18 11:47:08 EDT, Compound Start Date: 10/30/18 Status: Ordered SUMAtriptan 50 mg oral tablet See Instructions, IF HEADACHE PERSISTS 2 HRS AFTER 1ST DOST TAKE 2ND DOSE. DO NOT TAKE MORE THAN 9 DAYS PER MONTH, # 12 tablet, 0 Refills, Maintenance, 12/13/20 14:28:00 EDT, [facility] #[id number], 157, cm, 11/17/20 9:48:00 EDT, Height, 84.5, kg... Start Date: 12/13/20 Status: Ordered Xulane 150 mcg-35 mcg/24 hr transdermal film, extended release 1 patch, Topically, Every week, # 3 each, 11 Refills, Maintenance, 03/29/21 11:42:00 EDT, [facility][id number], 1 patch Topically Every week,x7 days, 157, cm, 03/29/21 10:26:00 EDT, Height, 84.5, kg, 04/29/19 4:40:00 EDT, Dry Weight Start Date: 03/29/21 Stop Date: 06/21/21 Status: Ordered Problem List Condition Effective Dates Status Health Status Inform ant Anemia(Confirmed) Active Asthma(Confirmed) Active Chest pain(Confirmed) Active Depression(Confirmed) Active Fall(Confirmed) Active Fatigue(Confirmed) Active Headache(Confirmed) Active History of pre-eclampsia(Confirmed) Active Contraception management(Confirmed) Active Social History Social History Type Response Smoking Status Never smoker; Tobacc o user in household: No entered on: 12/05/16 Sex Female
--- OUTSIDE RECORDS SUMMARY | 2023-11-16 17:16 | XMS_ITS | Continuity of Care Document ---
Author Organization [facility] Address [address] [facility], [address] Floor, [address] [place] [address]- Care Team Providers Care Linen Room Worker Name Role Phone Lorraine Zendejas MD Primary Care Physician Encounter [facility] Date(s): 01/30/20 - 05/29/20 [facility] [address], [address], [address] [place] [address] [facility] Attending Physician: Selina Orellana MD Admitting Physician: Selina Orellana MD Allergies, Adverse Reactions, Alerts Substance Reaction Severity Status sulfADIAZINE Unknown Active oxyCODONE Active Immunizations Given and Recorded Vaccine Date Status Refusal Reason influenza virus vaccine, inactivated 06/06/19 Give n [...] 2Admin Note: ORAL 3Admin Note: ORAL Medications Flovent HFA 220 mcg/inh inhalation aerosol 2 puffs, Inhalation, 2 times a day, use with spacer chamber rinse mouth and throat after use, # 1 each, 5 Refills, Maintenance, 11/03/19 12:31:00 EDT, Aerosol, [facility] #[id number], 157, cm, 07/31/19 8:49:00 EST, Height, 84.5, kg, 04/29/19 4:4... Start Date: 11/03/19 Status: Ordered ProAir HFA 90 mcg/inh inhalation aerosol with adapter 2, puffs, Inhalation, Every 4 hours, PRN, # 8.5 Gm, Refills 5, Tot. Refills 5, Maintenance, 11/03/19 12:31:00 EDT, Aerosol, Route to Pharmacy Electronically, [id number], [facility] #[id number], 157, cm, 07/31/19 8:49:00... Start Date: 11/03/19 Status: Ordered Spacer for asthma Spacer for asthma, See Instructions, # 1 units, Refills 0, Tot. Refills 0, Maintenance, Spacer for asthma, 10/30/18 11:47:08 EDT, Compound Start Date: 10/30/18 Status: Ordered SUMAtriptan 50 mg oral tablet See Instructions, IF HEADACHE PERSISTS 2 HRS AFTER 1ST DOST TAKE 2ND DOSE. DO NOT TAKE MORE THAN 9 DAYS PER MONTH, # 18 tablet, 1 Refills, Soft Stop, [facility] #[id number], 157, cm, 07/31/19 8:49:00 EST, Height, 84.5, kg, 04/29/19 4:40:00 EDT, D... Start Date: 10/07/19 Status: Ordered Xulane 150 mcg-35 mcg/24 hr transdermal film, extended release 1 patch, Topically, Every week, # 3 each, 11 Refills, Maintenance, 05/26/20 10:54:00 EDT, [facility] #[id number], 1 patch Topically Every week,x7 days, 157, cm, 03/23/20 15:02:00 EDT, Height, 84.5, kg, 04/29/19 4:40:00 EDT, Dry Weight Start Date: 05/26/20 Stop Date: 08/18/20 Status: Ordered Problem List Condition Effective Dates Status Health Status Inform ant Anemia(Confirmed) Active Asthma(Confirmed) Active Depression(Confirmed) Active Fatigue(Confirmed) Active Headache(Confirmed) Active History of pre-eclampsia(Confirmed) Active Contraception management(Confirmed) Active Social History Social History Type Response Smoking Status Never smoker; Tobacc o user in household: No entered on: 12/05/16 Sex Female
--- OUTSIDE RECORDS SUMMARY | 2023-11-16 17:16 | XMS_ITS | Continuity of Care Document ---
Author Organization [facility] Address [address] [place] [address]- Care Team Providers Care Tire Sorter Name Role Phone Lorraine Zendejas MD Primary Care Physician Encounter [facility] Date(s): 03/25/21 - 04/24/[address] [address]- Allergies, Adverse Reactions, Alerts Substance Reaction Severity [...] 5 Refills, Maintenance, 11/16/20 15:34:00 EDT, Aerosol, [facility] #[id number], Partial fill upon patient request if the prescription is for a schedule II opioid drug., 2 puffs Inhalation 2 times a d... Start Date: 11/16/20 Status: Ordered cyclobenzaprine 10 mg oral tablet 1, tablet, By Mouth, 3 times a day, PRN, # 45 tablet, Refills 0, Tot. Refills 0, Acute, NEEDED FOR SPASM, 08/25/20 9:53:00 EST, Route to Pharmacy Electronically, [facility] #[id number], 157, cm, 06/08/20 15:12:00 EST, Height, 84.5, kg, ... Start Date: 08/25/20 Status: Ordered Lidoderm 5% film 1 patch, Topically, Daily, (remove patch(s) after 12 hours), # 30 patch, 0 Refills, Maintenance, 10/12/20 11:07:00 EST, [facility] #[id number], Partial fill upon patient request if the prescription is for a schedule II opioid drug., 1 patch Topic... Start Date: 10/12/20 Status: Ordered ProAir HFA 90 mcg/inh inhalation aerosol with adapter 2, puffs, Inhalation, Every 4 hours, PRN, # 8.5 Gm, Refills 5, Tot. Refills 5, Maintenance, 01/06/21 8:08:00 EDT, Aerosol, Route to Pharmacy Electronically, [id number], [facility] #[id number], 157, cm, 11/17/20 9:48:00 E... Start Date: [...] tablet, 0 Refills, Maintenance, 12/13/20 14:28:00 EDT, [facility] #[id number], 157, cm, 11/17/20 9:48:00 EDT, Height, 84.5, kg... Start Date: 12/13/20 Status: Ordered Xulane 150 mcg-35 mcg/24 hr transdermal film, extended release 1 patch, Topically, Every week, # 3 each, 11 Refills, Maintenance, 03/29/21 11:42:00 EDT, [facility] #[id number], 1 patch Topically Every week,x7 days, 157, [...]
--- OUTSIDE RECORDS SUMMARY | 2023-11-16 17:16 | XMS_ITS | Continuity of Care Document ---
Author Organization [facility] Address [address] [place] [address]- Care Team Providers Care Product Support Manager Name Role Phone Lorraine Zendejas MD Primary Care Physician Encounter [facility] Date(s): 02/07/22 - 02/07/[address] [address] Discharge Disposition: A-D/C Home Attending Physician: Ricco IBARRA [OB], Amanda Huynh Admitting Physician: Ricco IBARRA [OB]Amanda Referring Physician: Ricco IBARRA [OB], Amanda Huynh Allergies, Adverse Reactions, Alerts Substance Reaction Severity [...] day, # 60 each, 5 Refills, Maintenance, 11/25/21 15:15:[id number], Partial fill upon patient request if the prescription is for a schedule II opioid drug., 2 puffs Inhalation 2 times a d... Start Date: 11/25/21 Status: Ordered Aspirin Low Dose 81 mg oral delayed release tablet 2 tablet, By Mouth, Daily, START AT 12 WEEKS, 09/11/21, # 90 tablet, 3 Refills, [facility] #[id number], 154, cm, 01/04/22 13:56:00 EDT, Height, 86.5, kg, 10/29/21 21:50:00 EDT, Dry Weight Start Date: 01/05/22 Status: Ordered Benadryl 25 mg oral capsule 2 capsule = 50 mg, By Mouth, Daily at bedtime, PRN Pain , Moderate, # 100 capsule, 0 Refills, Maintenance, 11/08/21 15:02:00 EDT, Capsule, [facility] #[id number], Partial fill upon patient request if the prescription is for a schedule II opioid d... Start Date: 11/08/21 Status: Ordered ferrous sulfate 325 mg oral tablet 1 tablet = 325 mg, By Mouth, Daily, # 30 tablet, 3 Refills, Maintenance, 01/05/22 12:46:00 EDT, Tablet, [facility] #[id number], Partial fill upon patient request if the prescription is for a schedule II opioid drug., 154, cm, 01/04/22 13:56:00 ED... Start Date: 01/05/22 Status: Ordered Lidoderm 5% film 1 patch, Topically, Daily, (remove patch(s) after 12 hours), # 30 patch, 5 Refills, Maintenance, 11/25/21 15:09:00 EDT, [facility] #[id number], Partial fill upon patient request if the prescription is for a schedule II opioid drug., 1 patch Topic... Start Date: 11/25/21 Status: Ordered MiraLax oral powder for reconstitution = 17 Gm, By Mouth, Daily, dissolve in water before taking, # 527 Gm, 0 Refills, Maintenance, 08/16/21 13:56:00 EST, REC Powder, [facility] #[id number], Partial fill upon patient request if the prescription is for a schedule II opioid drug., 17 Gm... Start Date: 08/16/21 Status: Ordered Multivitamins with Folic Acid 1 mg oral tablet 1 tablet, By Mouth, Daily, # 90 tablet, 3 Refills, Maintenance, 09/16/21 15:48:00 EST, Tablet, [facility] #[id number], Partial fill upon patient request if the prescription is for a schedule II opioid drug., 1 tablet By Mouth Daily, 157, cm, 020... Start Date: 09/16/21 Status: Ordered ProAir HFA 90 mcg/inh inhalation aerosol with adapter 2, puffs, Inhalation, Every 4 hours, PRN, # 8.5 Gm, Refills 2, Tot. Refills 2, Maintenance, 11/25/21 15:15:00 EDT, Aerosol, Route to Pharmacy Electronically, [id number], [facility] #[id number], 154, cm, 11/25/21 14:53:00... Start Date: 11/25/21 Status: Ordered Spacer for asthma Spacer for asthma, See Instructions, # 1 units, Refills 0, Tot. Refills 0, Maintenance, Spacer for asthma, 10/30/18 11:47:08 EDT, Compound Start Date: 10/30/18 Status: Ordered Tylenol 325 mg oral capsule 2 capsule = 650 mg, By Mouth, Every 4 hours, PRN Pain , Mild, Take as needed for costochondritis pain, # 90 capsule, 1 Refills, Maintenance, 01/08/22 14:18:00 EDT, Capsule, [facility] #[id number], Partial fill upon patient request if the prescrip... Start Date: 01/08/22 Status: Ordered Tylenol 325 mg oral tablet See Instructions, PRN, 2-3 tablets By Mouth Every 4-6 hours as needed for back pain, # 50 tablet, Refills 1, Tot. Refills 1, Maintenance, for pain, 11/25/21 15:08:00 EDT, Instructions Replace Required Details, Route to Pharmacy Electronically, [facility]... 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 Headache(Confirmed) Active History of pre-eclampsia(Confirmed) Active Lightheadedness(Confirmed) Active Obese class II(Confirmed) Active Pelvic pain in (Confirmed) Active Uterine scar from previous c esarean delivery(Confirmed) Active Vital Signs Most recent to oldest [Reference Range]: 1 Weight 90.4 kg (02/07/22 1:21 PM) Oxygen Saturation [94-100 %] 99 % (02/07/22 1:36 PM) Blood Pressure [90-138/55-84 mm Hg] 117/ 68mm Hg (02/07/22 1:36 PM) Temperature [96.8-100.4 DegF] 97.4 DegF (02/07/22 1:21 PM) Temperature Route Oral (02/07/22 1:21 PM) Weight Obtained Via Standing scale (02/07/22 1:21 PM) Social History Social History Type Response Smoking Status Never smoker; Tobacc o user in household: No entered on: 12/05/16 Sex Female
--- OUTSIDE RECORDS SUMMARY | 2023-11-16 17:16 | XMS_ITS | Continuity of Care Document ---
Author Organization [facility] Address [address] [place] [address]- Care Team Providers Care Night Worker Name Role Phone Aashish IBARRA, Lorraine Primary Care Physician [phone] Encounter [facility] Date(s): 02/19/23 - 03/21/[address] [address] Allergies, Adverse Reactions, Alerts Substance Reaction [...] 08/15/22 15:08:00 EST, Route to Pharmacy Electronically, [facility] #[id number], Partial fill upon patient request if the prescription... Start Date: 08/15/22 Status: Ordered Advair HFA 115 mcg / 21 mcg 2 puffs, Inhalation, 2 times a day, # 1 each, 5 Refills, Maintenance, 05/03/22 16:02:00 EDT, Aerosol, [facility] #[id number], Partial fill upon patient request if the prescription is for a schedule II opioid drug., 2 puffs Inhalation 2 times a da... Start Date: 05/03/22 Stop Date: 10/30/22 Status: Ordered albuterol 0.083% inhalation solution 3 mL = 2.5 mg, Inhalation, Every 6 hours, PRN Wheezing/Shortness of Breath, # 60 each, 1 Refills, Maintenance, 11/09/22 13:41:00 EDT, Solution, [facility] #[id number], Partial fill upon patient request if the prescription is for a schedule II opi... Start Date: 11/09/22 Status: Ordered albuterol CFC free 90 mcg/inh inhalation aerosol 2, puffs, Inhalation, Every 6 hours, PRN, for 30 days, # 8.5 Gm, Refills 11, Tot. Refills 11, Hard Stop 04/28/23 11:45:00 EDT, 05/03/22 11:45:00 EDT, Aerosol, Route to Pharmacy Electronically, [id number], [facility]... Start Date: 05/03/22 Stop Date: 04/28/23 Status: Ordered cetirizine 5 mg oral tablet = 5 mg, By Mouth, Daily, # 30 tablet, 0 Refills, Maintenance, 11/17/22 10:48:00 EDT, Tablet, [facility] #[id number], Partial fill upon patient request if the prescription is for a schedule II opioid drug., 156, cm, 11/17/22 8:44:00 EDT, Height, 8... Start Date: 11/17/22 Status: Ordered Depakote 250 mg oral enteric coated tablet 1 tablet = 250 mg, By Mouth, 2 times a day, # 60 tablet, 3 Refills, Maintenance, 02/28/23 16:39:00 EDT, [facility] #[id number], Partial fill upon patient request if the prescription is for a schedule II opioid drug., 155, cm, 02/28/23 11:38:00 ED... Start Date: 02/28/23 Status: Ordered ibuprofen 400 mg oral tablet 400 mg, 1, tablet, By Mouth, Every 4 hours, PRN, # 60 tablet, Refills 0, Tot. Refills 0, Maintenance, for pain, 11/17/22 10:49:00 EDT, Route to Pharmacy Electronically, [facility] #[id number], Partial fill upon patient request if the prescription... Start Date: 11/17/22 Status: Ordered lidocaine 1.8% topical film 1 patch, Topically, Daily, leave on up to 12 hours, # 30 each, 0 Refills, Maintenance, 11/17/22 10:47:00 EDT, Film, [facility] #[id number], Partial fill upon patient request if the prescription is for a schedule II opioid drug., 1 patch Topically... Start Date: 11/17/22 Status: Ordered metroNIDAZOLE 0.75% topical gel 1 application, Topically, Daily at bedtime, use vaginal applicator to insert vaginally nightly for 5 nights, # 45 Gm, 0 Refills, Maintenance, 02/14/23 16:28:00 EDT, Gel, [facility] #[id number], Partial fill upon patient request if the prescriptio... Start Date: 02/14/23 Stop Date: 02/19/23 Status: Ordered metroNIDAZOLE 500 mg oral tablet 1 tablet = 500 mg, By Mouth, Every 12 hours, # 28 tablet, 0 Refills, Maintenance, 01/25/23 16:14:00EDT, Tablet, [facility] #[id number], Partial fill upon patient request if the prescription is for a schedule II opioid drug., 156, cm, 01/25/23 15... Start Date: 01/25/23 Stop Date: 02/08/23 Status: Ordered MiraLax oral powder for reconstitution = 17 Gm, By Mouth, Daily, dissolve in water before taking, # 527 Gm, 0 Refills, Maintenance, 11/17/22 10:47:00 EDT, REC Powder, [facility] #[id number], Partial fill upon patient request if the prescription is for a schedule II opioid drug., 17 Gm... Start Date: 11/17/22 Status: Ordered Spacer for asthma Spacer for asthma, See Instructions, # 1 each, Refills 0, Tot. Refills 0, Maintenance, Spacer for asthma inhaler., 11/09/22 13:40:00 EDT, Compound, 156, cm, 03/28/23 12:58:00 EDT, Height, 83, kg, 05/03/22 11:39:00 EDT, Dry Weight Start Date: 11/09/22 Status: Ordered SUMAtriptan 100 mg oral tablet 1 tablet = 100 mg, By Mouth, Once, PRN for migraine headache, may repeat dose once in 2 hours. No more than 2 doses in 24 hours. No more than 3 times per week., # 9 tablet, 3 Refills, Soft Stop, 01/25/23 10:30:00 EDT, Tablet, [facility] #0... Start Date: 01/25/23 Status: Ordered Problem List Condition Confirmation Course Effective Dates Status Health St atus Informant Anemia Confirmed Active Asthma Confirmed Active COVID-19 1 Confirmed 08/15/22 Active COVID Confirmed Active Depression Confirmed Active Headache Confirmed Active History of pre-eclampsia Confirmed Active Obese class II Confirmed Active Uterine scar from previous delivery Confirmed Active 1Problem added by Discern Expert Social History Social History Type Response Smoking Status Never (less than 100 in lifetime) entered on: 02/15/22 Sex Female Patient Care team information Care Team Personnel Name: Vivi Bailey NP Position: [facility] PCO Associate Professional Member Role: Lifetime Consulting Provider Address: Address: [address] [place] [address]- Name: Gauri Pascual Position: [facility] RN Member Role: Primary Care Nurse Name: Lorraine Zendejas MD Position: [facility] Physician - Primary Care Member Role: PCP Address: Address: [address] [place] [address]- Care Team Related Persons Name: EKNDAL PHELPS Address: home [address] [place] [address] Name: RELL PHELPS Address: [address] [address] Name: RUSLAN ABREU Address: [address] Address: home [address] [place] [address] Name: NAY DEL ANGEL Address: home [address] [place] [address] Name: PRAVIN PARKER Address: [address] [place] [address] Name: ADITHYA HAYDEN Address: [id number] Address: [address] [address] [place] Name: SANTYFRANKIPRAVIN Bergeron Address: home [address] [place] [address]
--- OUTSIDE RECORDS SUMMARY | 2023-11-16 17:16 | XMS_ITS | Continuity of Care Document ---
Author Organization [facility] Address [address] [place] [address]- Care Team Providers Care White Sugar Supervisor Name Role Phone Aashish IBARRA, Lorraine Primary Care Physician Encounter [facility] Date(s): 07/24/21 - 08/23/[address] [address] Allergies, Adverse Reactions, Alerts Substance Reaction Severity [...] 5 Refills, Maintenance, 11/16/20 15:34:00 EDT, Aerosol, [facility] #[id number], Partial fill upon patient request if the prescription is for a schedule II opioid drug., 2 puffs Inhalation 2 times a d... Start Date: 11/16/20 Status: Ordered aspirin 81 mg oral delayed release tablet 2 tablet = 162 mg, By Mouth, Daily, start at 12 weeks, 09/11/21, # 90 tablet, 0 Refills, Maintenance,08/16/21 13:37:00 EST, CR Tablet, [facility] #[id number], Partial fill upon patient request ifthe prescription is for a schedule II opioid drug.,... Start Date: 08/16/21 Status: Ordered cyclobenzaprine 10 mg oral tablet 1, tablet, By Mouth, 3 times a day, PRN, # 45 tablet, Refills 0, Tot. Refills 0, Acute, NEEDED FOR SPASM, 08/25/20 9:53:00 EST, Route to Pharmacy Electronically, [facility] #[id number], 157, cm, 06/08/20 15:12:00 EST, Height, 84.5, kg, ... Start Date: 08/25/20 Status: Ordered Lidoderm 5% film 1 patch, Topically, Daily, (remove patch(s) after 12 hours), # 30 patch, 0 Refills, Maintenance, 10/12/20 11:07:00 EST, [facility] #[id number], Partial fill upon patient request if the prescription is for a schedule II opioid drug., 1 patch Topic... Start Date: 10/12/20 Status: Ordered MiraLax oral powder for reconstitution = 17 Gm, By Mouth, Daily, dissolve in water before taking, # 527 Gm, 0 Refills, Maintenance, 08/16/21 13:56:00 EST, REC Powder, [facility] #[id number], Partial fill upon patient request if the prescription is for a schedule II opioid drug., 17 Gm... Start Date: 08/16/21 Status: Ordered Multivitamins with Vitamin B Complex, Vitamin C, Minerals and L- Methylfolate oral capsule 1 capsule, By Mouth, Daily, # 30 capsule, 11 Refills, Maintenance, 08/05/21 17:50:00 EST, Capsule, [facility] #[id number], Partial fill upon patient request if the prescription is for a scheduleII opioid drug., 1 capsule By Mouth Daily, 157, cm,... Start Date: 08/05/21 Status: Ordered ProAir HFA 90 mcg/inh inhalation aerosol with adapter 2, puffs, Inhalation, Every 4 hours, PRN, # 8.5 Gm, Refills 5, Tot. Refills 5, Maintenance, 01/06/21 8:08:00 EDT, Aerosol, Route to Pharmacy Electronically, [id number], [facility] #[id number], 157, cm, 11/17/20 9:48:00 E... Start Date: [...] tablet, 0 Refills, Maintenance, 12/13/20 14:28:00 EDT, [facility] #[id number], 157, cm, 11/17/20 9:48:00 EDT, Height, 84.5, kg... Start Date: 12/13/20 Status: Ordered Unisom 25 mg oral tablet 1 tablet = 25 mg, By Mouth, Daily, 15 to 30 minutes before bed, # 30 tablet, 1 Refills, Acute 09/16/21 13:36:00 EST, 08/16/21 13:36:00 EST, Tablet, [facility] #[id number], Partial fill upon patient request if the prescription is for a schedule II... Start Date: 08/16/21 Stop Date: 09/16/21 Status: Ordered Vitamin B6 25 mg oral tablet 1 tablet = 25 mg, By Mouth, 3 times a day, # 100 tablet, 1 Refills, Acute 09/16/21 13:37:00 EST, 08/16/21 13:36:00 EST, [facility] #[id number], Partial fill upon patient request if the prescription is for a schedule II opioid drug., 157, cm, 2... Start Date: 08/16/21 Stop Date: 09/16/21 Status: Ordered Xulane 150 mcg-35 mcg/24 hr transdermal film, extended release 1 patch, Topically, Every week, # 3 each, 11 Refills, Maintenance, 03/29/21 11:42:00 EDT, [facility] #[id number], 1 patch Topically Every week,x7 days, 157, cm, 03/29/21 10:26:00 EDT, Height, 84.5, kg, 04/29/19 4:40:00 EDT, Dry Weight Start Date: 03/29/21 Stop Date: 06/21/21 Status: Ordered Zofran 4 mg oral tablet 1 tablet = 4 mg, By Mouth, Every 8 hours, PRN Nausea & Vomiting, # 20 tablet, 0 Refills, Acute 09/17/21 13:56:00 EST, 08/16/21 13:56:00 EST, Tablet, [facility] #[id number], Partial fill uponpatient request if the prescription is for a schedule I... Start Date: 08/16/21 Stop Date: 09/17/21 Status: Ordered Problem List Condition Effective Dates Status Health Status Inform ant Anemia(Confirmed) Active Asthma(Confirmed) Active GBS bacteriuria(Confirmed) Active Chest pain(Confirmed) Active Depression(Confirmed) Active Fall(Confirmed) Active Fatigue(Confirmed) Active Headache(Confirmed) Active History of pre-eclampsia(Confirmed) Active Obese class II(Confirmed) Active Contraception management(Confirmed) Active Social History Social History Type Response Smoking Status Never smoker; Tobacc o user in household: No entered on: 12/05/16 Sex Female
--- OUTSIDE RECORDS SUMMARY | 2023-11-16 17:16 | XMS_ITS | Continuity of Care Document ---
Author Organization [facility] Address [address] [place] [address]- Care Team Providers Care Systems Analyst Engineer Name Role Phone Aashish IBARRA, Lorraine Primary Care Physician Encounter [facility] Date(s): 05/12/22 - 06/11/[address] [address]- Allergies, Adverse Reactions, Alerts Substance Reaction Severity [...] Note: ORAL Medications acetaminophen 325 mg oral capsule 2 capsule = 650 mg, By Mouth, Every 4 hours, PRN as needed for pain, # 50 tablet, 0 Refills, Maintenance, 05/17/22 15:05:00 EDT, Capsule, [facility] #[id number], Partial fill upon patient request if the prescription is for a schedule II opioid . Start Date: 05/17/22 Status: Ordered Advair HFA 115 mcg / 21 mcg 2 puffs, Inhalation, 2 times a day, # 1 each, 5 Refills, Maintenance, 05/03/22 16:02:00 EDT, Aerosol, [facility] #[id number], Partial fill upon patient request if the prescription is for a schedule II opioid drug., 2 puffs Inhalation 2 times a da... Start Date: 05/03/22 Stop Date: 10/30/22 Status: Ordered albuterol CFC free 90 mcg/inh inhalation aerosol 2, puffs, Inhalation, Every 6 hours, PRN, # 8.5 Gm, Refills 11, Tot. Refills 11, Maintenance, 05/03/22 11:45:00 EDT, Aerosol, Route to Pharmacy Electronically, [id number], [facility] #[id number], dispense brand preferred... Start Date: 05/03/22 Stop Date: 04/28/23 Status: Ordered clotrimazole 1% topical cream 1 application, Topically, 2 times a day, # 12 Gm, 0 Refills, Maintenance, 04/11/22 4:42:00 EDT, Cream, [facility] #[id number], Partial fill upon patient request if the prescription is for a schedule II opioid drug., 1 application Topically 2 time... Start Date: 04/11/22 Status: Ordered Colace sodium 100 mg oral capsule 100 mg, 1, capsule, By Mouth, 2 times a day, PRN, # 20 capsule, Refills 0, Tot. Refills 0, Maintenance, for constipation, 03/18/22 15:18:00 EDT, Route to Pharmacy Electronically, [facility]#[id number], Partial fill upon patient request if the pr... Start Date: 03/18/22 Status: Ordered Dilaudid 2 mg oral tablet 1 tablet = 2 mg, By Mouth, Every 4 hours, # 10 tablet, 0 Refills, Maintenance, 03/18/22 18:17:00 EDT, Tablet, [facility] #[id number], Partial fill upon patient request if the prescription is fora schedule II opioid drug., 154, cm, 03/18/22 11:26... Start Date: 03/18/22 Status: Ordered ferrous sulfate 325 mg oral tablet 1 tablet = 325 mg, By Mouth, Daily, # 30 tablet, 3 Refills, Maintenance, 01/05/22 12:46:00 EDT, Tablet, [facility] #[id number], Partial fill upon patient request if the prescription is for a schedule II opioid drug., 154, cm, 01/04/22 13:56:00 ED... Start Date: 01/05/22 Status: Ordered ibuprofen 600 mg oral tablet 600 mg, 1, tablet, By Mouth, Every 6 hours, # 50 tablet, Refills 0, Tot. Refills 0, Maintenance, 03/18/22 15:18:00 EDT, Route to Pharmacy Electronically, [facility] #[id number], Partial fill upon patient request if the prescription is for a sched... Start Date: 03/18/22 Status: Ordered magnesium oxide 400 mg oral tablet 1 tablet = 400 mg, By Mouth, Daily, for 30 days, to treat and prevent headaches, # 30 tablet, 3 Refills, Acute 06/22/22 19:25:00 EST, 02/22/22 19:25:00 EDT, Tablet, [facility] #[id number], Partial fill upon patient request if the prescription is... Start Date: 02/22/22 Stop Date: 06/22/22 Status: Ordered MiraLax oral powder for reconstitution = 17 Gm, By Mouth, Daily, dissolve in water before taking, # 527 Gm, 0 Refills, Maintenance, 08/16/21 13:56:00 EST, REC Powder, [facility] #[id number], Partial fill upon patient request if the prescription is for a schedule II opioid drug., 17 Gm... Start Date: 08/16/21 Status: Ordered Multivitamins with Folic Acid 1 mg oral tablet 1 tablet, By Mouth, Daily, # 90 tablet, 3 Refills, Maintenance, 05/03/22 12:05:00 EDT, Tablet, [facility] #[id number], Partial fill upon patient request if the prescription is for a schedule II opioid drug., 1 tablet By Mouth Daily,x90 days, 157,... Start Date: 05/03/22 Stop Date: 04/28/23 Status: Ordered simethicone 125 mg oral tablet, chewable 1 tablet = 125 mg, Chew, 4 times a day, # 48 tablet, 0 Refills, Maintenance, 03/18/22 15:18:00 EDT,Chew Tablet, [facility] #[id number], Partial fill upon patient request if the prescription is for a schedule II opioid drug., 154, cm, 03/18/22 11... Start Date: 03/18/22 Status: Ordered Spacer for asthma Spacer for asthma, See Instructions, # 1 units, Refills 0, Tot. Refills 0, Maintenance, Spacer for asthma, 10/30/18 11:47:08 EDT, Compound Start Date: 10/30/18 Status: Ordered vitamin A & D topical cream 1 application, Topically, 2 times a day, # 120 Gm, 0 Refills, Maintenance, 03/18/22 15:18:00 EDT, Cream, [facility] #[id number], Partial fill upon patient request if the prescription is for a schedule II opioid drug., 1 application Topically 2 ti... Start Date: 03/18/22 Status: Ordered Problem List Condition Confirmation Course Effective Dates Status Health St [facility] Informant Anemia Confirmed Active Asthma Confirmed Active Depression Confirmed Active Headache Confirmed Active History of pre-eclampsia Confirmed Active Obese class I Confirmed Active Uterine scar from previous delivery Confirmed Active Social History Social History Type Response Smoking Status Never (less than 100 in lifetime) entered on: 02/15/22 Sex Patient Care team information Personnel Name: Lorraine Zendejas MD Address: Address: [address] [place] [address]
--- OUTSIDE RECORDS SUMMARY | 2023-11-16 17:17 | XMS_ITS | Continuity of Care Document ---
Author Organization [facility] Address [address] [place] [address]- Care Team Providers Care Planning Analyst Name Role Phone Lorraine Zendejas MD Primary Care Physician En[place] [facility] Date(s): 09/07/23 - 10/11/23 [facility] [address] [place] [address]- Attending Physician: Jimi Leiva Admitting Physician: Jimi Leiva Referring Physician: Lorraine Zendejas MD Allergies, Adverse Reactions, Alerts Substance Reaction [...] 08/15/22 15:08:00 EST, Route to Pharmacy Electronically, [facility] #[id number], Partial fill upon patient request if the prescription... Start Date: 08/15/22 Status: Ordered Advair HFA 115 mcg / 21 mcg 2 puffs, Inhalation, 2 times a day, # 1 each, 5 Refills, Maintenance, 05/03/22 16:02:00 EDT, Aerosol, [facility] #[id number], Partial fill upon patient request if the prescription is for a schedule II opioid drug., 2 puffs Inhalation 2 times a da... Start Date: 05/03/22 Stop Date: 10/30/22 Status: Ordered albuterol 0.083% inhalation solution 3 mL = 2.5 mg, Inhalation, Every 6 hours, PRN for wheezing, # 25 each, 0 Refills, Maintenance, 05/29/23 20:07:00 EDT, Solution, [facility] #[id number], Partial fill upon patient request if the prescription is for a schedule II opioid drug., 156,... Start Date: 05/29/23 Status: Ordered cetirizine 5 mg oral tablet = 5 mg, By Mouth, Daily, # 30 tablet, 0 Refills, Maintenance, 11/17/22 10:48:00 EDT, Tablet, [facility] #[id number], Partial fill upon patient request if the prescription is for a schedule II opioid drug., 156, cm, 11/17/22 8:44:00 EDT, Height, 8... Start Date: 11/17/22 Status: Ordered Depakote 250 mg oral enteric coated tablet 1 tablet = 250 mg, By Mouth, 2 times a day, # 60 tablet, 3 Refills, Maintenance, 02/28/23 16:39:00 EDT, [facility] #[id number], Partial fill upon patient request if the prescription is for a schedule II opioid drug., 155, cm, 02/28/23 11:38:00 ED... Start Date: 02/28/23 Status: Ordered dicyclomine 20 mg oral tablet 1 tablet = 20 mg, By Mouth, 4 times a day, 30 to 60 minutes before meals, # 28 tablet, 4 Refills, Maintenance, 04/05/23 11:18:00 EDT, Tablet, [facility] #[id number], Partial fill upon patient request if the prescription is for a schedule II opioi... Start Date: 04/05/23 Stop Date: 05/10/23 Status: Ordered ibuprofen 400 mg oral tablet 400 mg, 1, tablet, By Mouth, Every 4 hours, PRN, # 60 tablet, Refills 0, Tot. Refills 0, Maintenance, for pain, 11/17/22 10:49:00 EDT, Route to Pharmacy Electronically, [facility] #[id number], Partial fill upon patient request if the prescription... Start Date: 11/17/22 Status: Ordered MiraLax oral powder for reconstitution = 17 Gm, By Mouth, Daily, dissolve in water before taking, # 527 Gm, 0 Refills, Maintenance, 11/17/22 10:47:00 EDT, REC Powder, [facility] #[id number], Partial fill upon patient request if the prescription is for a schedule II opioid drug., 17 Gm... Start Date: 11/17/22 Status: Ordered Nexplanon 68 mg subcutaneous implant 1 each = 68 mg, Subcutaneous Infusion, Once, Left arm, placed 07/23/2023 Lot #[id number], # 1 each, 0 Refills, Maintenance, 07/23/23 16:11:00 EST, Partial fill upon patient request if the prescription is for a schedule II opioid drug. Start Date: 07/23/23 Status: Ordered ondansetron 4 mg oral tablet, disintegrating 1 tablet = 4 mg, By Mouth, Every 8 hours, PRN Nausea & Vomiting, # 10 tablet, 0 Refills, Maintenance, 09/15/23 11:34:00 EST, Tablet, [facility] #[id number], Partial fill upon patient requestif the prescription is for a schedule II opioid drug.,... Start Date: 09/15/23 Status: Ordered Spacer for asthma Spacer for [...] Refills, Soft Stop, 01/25/23 10:30:00 EDT, Tablet, [facility] #0... Start Date: 01/25/23 Status: Ordered Problem [...] Team Personnel Name: Vivi Bailey NP Position: [facility] PCO Associate Professional Member Role: Lifetime Consulting Provider Address: Address: [address] [place] [address]- Name: Gauri Pascual Position: [facility] RN Member Role: Primary Care Nurse Name: Lorraine Zendejas MD Position: [facility] Physician - Primary Care Member Role: PCP Address: Address: [address] [place] [address]- Care Team Related Persons Name: KENDAL PHELPS Address: home [address] [place] [address] Name: RELL PHELPS Address: [address] [address] Name: RUSLAN ABREU Address: [address] Address: home [address] [place] [address] [place] Name: NAY DEL ANGEL Address: [address] [place] [address] Name: PRAVIN PARKER Address: home [address] [place] [address] Name: ADITHYA HAYDEN Address: [address] Address: [address] [place] [address] [place] Name: PRAVIN HAYDEN Address: home [address] [place] [address]
--- OUTSIDE RECORDS SUMMARY | 2023-11-16 17:17 | XMS_ITS | Continuity of Care Document ---
Author Organization [facility] Address [address] [place] [address]- Care Team Providers Care Stamp Analyst Name Role Phone Lorraine Zendejas MD Primary Care Physician [phone] Encounter [facility] Date(s): 06/26/19 - 08/20/[address] [address]- [facility] Attending Physician: Cheri Edward MD Admitting Physician: Cheri Edward MD Referring Physician: Cheri Edward MD Allergies, Adverse Reactions, Alerts Substance Reaction [...] 2Admin Note: ORAL 3Admin Note: ORAL Medications DOUBLE ELECTRIC BREAST PUMP DOUBLE ELECTRIC BREAST PUMP, See Instructions, # 1 each, Refills 0, Tot. Refills 0, Maintenance, USE FOR LACTATIN MOTHER, 06/27/17 10:15:24, Compound Start Date: 06/27/17 Status: Ordered Flovent HFA 220 mcg/inh inhalation aerosol 2 puffs, Inhalation, 2 times a day, use with spacer chamber rinse mouth and throat after use, # 1 each, 6 Refills, Maintenance, 01/24/19 14:16:14 EDT, Aerosol Start Date: 01/24/19 Status: Ordered magnesium oxide 400 mg oral tablet 1 tablet = 400 mg, By Mouth, Daily, # 30 tablet, 3 Refills, Maintenance, 06/30/19 16:13:01 EST, Tablet Start Date: 06/30/19 Stop Date: 10/28/19 Status: Ordered multivitamin, Multivitamins oral tablet, chewable 1 tablet, Chew, Daily, # 90 tablet, 0 Refills, Maintenance, 08/04/19 15:51:00 EST, Chew Tablet, [facility] #[id number], 1 tablet Chew Daily,x90 days, 157, cm, 07/31/19 8:49:00 EST, Height, 84.5,kg, 04/29/19 4:40:00 EDT, Dry Weight Start Date: 08/04/19 Stop Date: 11/02/19 Status: Ordered Ortho Micronor 0.35 mg oral tablet 1 tablet = 0.35 mg, By Mouth, Daily, take SAME time daily, # 28 tablet, 11 Refills, Maintenance, 06/13/19 11:50:28 EST, Tablet Start Date: 06/13/19 Status: Ordered Plus oral tablet 1 tablet, By Mouth, Daily, # 90 tablet, 11 Refills, Maintenance, 07/08/18 12:54:47 EST, Tablet, 1 tablet By Mouth Daily Start Date: 07/08/18 Status: Ordered ProAir HFA 90 mcg/inh inhalation aerosol with adapter 2, puffs, Inhalation, Every 4 hours, PRN, # 8.5 Gm, Refills 11, Tot. Refills 11, Maintenance, 10/30/18 11:47:01 EDT, Aerosol, Route to Pharmacy Electronically, [id number], [id number] Start Date: 10/30/18 Status: Ordered Slow Fe (as elemental iron) 45 mg oral tablet, extended release 1 tablet = 45 mg, By Mouth, Daily, # 30 tablet, 6 Refills, Maintenance, 02/20/19 16:23:19 EDT, ER Tablet Start Date: 02/20/19 Status: Ordered Spacer for asthma Spacer for asthma, See Instructions, # 1 units, Refills 0, Tot. Refills 0, Maintenance, Spacer for asthma, 10/30/18 11:47:08 EDT, Compound Start Date: 10/30/18 Status: Ordered SUMAtriptan 50 mg oral tablet See Instructions, PRN for migraine headache, If headache persists 2 hours after 1st dose, may take 2nd dose. Do not take more than 9 days per month, # 18 tablet, 0 Refills, Maintenance, 06/30/19 16:13:30 EST, Tablet Start Date: 06/30/19 Status: Ordered Problem List Condition Effective Dates Status Health Status Inform ant Anemia(Confirmed) Active Asthma(Confirmed) Active Depression(Confirmed) Active Fatigue(Confirmed) Active Headache(Confirmed) Active History of pre-eclampsia(Confirmed) Active Social History Social History Type Response Smoking Status Never smoker; Tobacc o user in household: No entered on: 12/05/16 Sex Female
--- OUTSIDE RECORDS SUMMARY | 2023-11-16 17:17 | XMS_ITS | Continuity of Care Document ---
Author Organization [facility] Address [address] [place] [address]- Care Team Providers Care Cotton Ball Machine Tender Name Role Phone Lorraine Zendejas MD Primary Care Physician Encounter [facility] Date(s): 08/13/21 - 08/14/[address] [id number] Discharge Disposition: A-D/C Home Attending Physician: En Ugarte MD Admitting Physician: En Ugarte MD Referring Physician: En Ugarte MD Allergies, Adverse Reactions, Alerts Substance Reaction [...] 5 Refills, Maintenance, 11/16/20 15:34:00 EDT, Aerosol, [facility] #[id number], Partial fill upon patient request if the prescription is for a schedule II opioid drug., 2 puffs Inhalation 2 times a d... Start Date: 11/16/20 Status: Ordered cyclobenzaprine 10 mg oral tablet 1, tablet, By Mouth, 3 times a day, PRN, # 45 tablet, Refills 0, Tot. Refills 0, Acute, NEEDED FOR SPASM, 08/25/20 9:53:00 EST, Route to Pharmacy Electronically, [facility] #[id number], 157, cm, 06/08/20 15:12:00 EST, Height, 84.5, kg, ... Start Date: 08/25/20 Status: Ordered Lidoderm 5% film 1 patch, Topically, Daily, (remove patch(s) after 12 hours), # 30 patch, 0 Refills, Maintenance, 10/12/20 11:07:00 EST, [facility] #[id number], Partial fill upon patient request if the prescription is for a schedule II opioid drug., 1 patch Topic... Start Date: 10/12/20 Status: Ordered Multivitamins with Vitamin B Complex, Vitamin C, Minerals and L- Methylfolate oral capsule 1 capsule, By Mouth, Daily, # 30 capsule, 11 Refills, Maintenance, 08/05/21 17:50:00 EST, Capsule, [facility] #[id number], Partial fill upon patient request if the prescription is for a scheduleII opioid drug., 1 capsule By Mouth Daily, 157, cm,... Start Date: 08/05/21 Status: Ordered ProAir HFA 90 mcg/inh inhalation aerosol with adapter 2, puffs, Inhalation, Every 4 hours, PRN, # 8.5 Gm, Refills 5, Tot. Refills 5, Maintenance, 01/06/21 8:08:00 EDT, Aerosol, Route to Pharmacy Electronically, [id number], [facility] #[id number], 157, cm, 11/17/20 9:48:00 E... Start Date: [...] tablet, 0 Refills, Maintenance, 12/13/20 14:28:00 EDT, [facility] #[id number], 157, cm, 11/17/20 9:48:00 EDT, Height, 84.5, kg... Start Date: 12/13/20 Status: Ordered Tylenol 325 mg oral tablet 975 mg, Tablet, By Mouth, Once, PRN for Pain , Moderate, Routine, 08/14/21 0:08:00 EST Start Date: 08/14/21 Stop Date: 08/13/21 Status: Completed Xulane 150 mcg-35 mcg/24 hr transdermal film, extended release 1 patch, Topically, Every week, # 3 each, 11 Refills, Maintenance, 03/29/21 11:42:00 EDT, [facility] #[id number], 1 patch Topically Every week,x7 days, 157, [...] Obese class II(Confirmed) Active Contraception management(Confirmed) Active Vital Signs Most recent to oldest [Reference Range]: 1 2 Weight 85.5 kg (08/13/21 10:55 PM) Oxygen Saturation [94-100 %] 100 % (08/13/21 10:53 PM) Blood Pressure [90-138/55-84 mm Hg] 124/ 74mm Hg (08/13/21 10:53 PM) Respiratory Rate [16-30 br/min] 16 br/mi n (08/14/21 4:46 AM) 16 br/min (08/13/21 10:53 PM) Temperature [96.8-100.4 DegF] 99.5 DegF (08/13/21 10:53 PM) Mode of Delivery (Oxygen) Room air (08/13/21 10:53 PM) Blood pressure sites Arm, left (08/13/21 10:53 PM) Temperature Route Oral (08/13/21 10:53 PM) Dry Weight 85.5 kg (08/13/21 10:55 PM) Weight Obtained Via Standing scale (08/13/21 10:55 PM) Social History Social History Type Response Smoking Status Never smoker; Tobacc o user in household: No entered on: 12/05/16 Sex Female
--- OUTSIDE RECORDS SUMMARY | 2023-11-16 17:17 | XMS_ITS | Continuity of Care Document ---
Author Organization [facility] Address [address] [facility], [address] Floor, [address] [place] [address]- Care Team Providers Care Executive Recruiter Name Role Phone Lorraine Zendejas MD Primary Care Physician Encounter [facility] Date(s): 10/16/19 - 12/03/19 [facility] [address], [address], [address] [place] [address]- [facility] Attending Physician: Dena Hylton MD Admitting Physician: Dena Hylton MD Allergies, Adverse Reactions, Alerts Substance Reaction [...] 5 Refills, Maintenance, 11/03/19 12:31:00 EDT, Aerosol, [facility] #[id number], 157, cm, 07/31/19 8:49:00 EST, Height, 84.5, kg, 04/29/19 4:4... Start Date: 11/03/19 Status: Ordered Ortho Micronor 0.35 mg oral [...] 12:31:00 EDT, Aerosol, Route to Pharmacy Electronically, [id number], [facility] #[id number], 157, cm, 07/31/19 8:49:00... Start Date: 11/03/19 [...] # 18 tablet, 1 Refills, Soft Stop, [facility] #[id number], 157, cm, 07/31/19 8:49:00 EST, Height, 84.5, kg, 04/29/19 4:40:00 EDT, D... Start Date: 10/07/19 Status: Ordered Problem List Condition Effective Dates Status Health Status Inform ant Anemia(Confirmed) Active Asthma(Confirmed) Active Depression(Confirmed) Active Fatigue(Confirmed) Active Headache(Confirmed) Active History of pre-eclampsia(Confirmed) Active Social History Social History Type Response Smoking Status Never smoker; Tobacc o user in household: No entered on: 12/05/16 Sex Female
--- OUTSIDE RECORDS SUMMARY | 2023-11-16 17:17 | XMS_ITS | Continuity of Care Document ---
Author Organization [facility] Address [address] [place] [address]- Care Team Providers Care Sales And Service Consultant Name Role Phone Lorraine Zendejas MD Primary Care Physician [phone] Encounter [facility] Date(s): 11/08/20 - 12/08/[address] [address]- Attending Physician: Roque Villela Admitting Physician: AdmtrRoque Referring Physician: Admtr, Ar8 Allergies, Adverse Reactions, Alerts Substance Reaction Severity [...] 5 Refills, Maintenance, 11/16/20 15:34:00 EDT, Aerosol, [facility] #[id number], Partial fill upon patient request if the prescription is for a schedule II opioid drug., 2 puffs Inhalation 2 times a d... Start Date: 11/16/20 Status: Ordered Ambien 5 mg oral tablet See Instructions, 1 tablet to take the night of in lab sleep study, after arrival to sleep lab, # 1tablet, 0 Refills, Acute 02/10/21 9:42:00 EDT, 11/11/20 9:41:00 EDT, [facility] #[id number], Partial fill upon patient request if the prescription... Start Date: 11/11/20 Stop Date: 02/10/21 Status: Ordered cyclobenzaprine 10 mg oral tablet 1, tablet, By Mouth, 3 times a day, PRN, # 45 tablet, Refills 0, Tot. Refills 0, Acute, NEEDED FOR SPASM, 08/25/20 9:53:00 EST, Route to Pharmacy Electronically, [facility] #[id number], 157, cm, 06/08/20 15:12:00 EST, Height, 84.5, kg, ... Start Date: 08/25/20 Status: Ordered Lidoderm 5% film 1 patch, Topically, Daily, (remove patch(s) after 12 hours), # 30 patch, 0 Refills, Maintenance, 10/12/20 11:07:00 EST, [facility] #[id number], Partial fill upon patient request if the prescription is for a schedule II opioid drug., 1 patch Topic... Start Date: 10/12/20 Status: Ordered ProAir HFA 90 mcg/inh inhalation aerosol with adapter 2, puffs, Inhalation, Every 4 hours, PRN, # 8.5 Gm, Refills 5, Tot. Refills 5, Maintenance, 08/04/20 12:45:00 EST, Aerosol, Route to Pharmacy Electronically, [id number], [facility] #[id number], 157, cm, 06/08/20 15:12:00... Start Date: 08/04/20 Status: Ordered Spacer for asthma Spacer for [...] # 18 tablet, 1 Refills, Soft Stop, [facility] #[id number], 157, cm, 07/31/19 8:49:00 EST, Height, 84.5, kg, 04/29/19 4:40:00 EDT, D... Start Date: 10/07/19 Status: Ordered Xulane 150 mcg-35 mcg/24 hr transdermal film, extended release 1 patch, Topically, Every week, # 3 each, 11 Refills, Maintenance, 05/26/20 10:54:00 EDT, [facility] #[id number], 1 patch Topically Every week,x7 days, 157, [...]
--- OUTSIDE RECORDS SUMMARY | 2023-11-16 17:17 | XMS_ITS | Continuity of Care Document ---
Author Organization [facility] ter Address [address] [place] [address]- Care Team Providers Care Broadcaster Name Role Phone Lorraine Zendejas MD Primary Care Physician [phone] [place] [facility] [place] 02/28/23 - 02/28/[address] [address]- Encounter Diagnosis Acute streptococcal pharyngitis(Final) - 02/28/23 Acute neck pain(Final) - 02/28/23 Discharge Disposition: A-D/C Home Attending Physician: Chelsea Valdez MD Admitting Physician: Chelsea Valdez MD Referring Physician: Not on Staff, Referring MD Allergies, Adverse Reactions, Alerts Substance Reaction [...] 08/15/22 15:08:00 EST, Route to Pharmacy Electronically, [facility] #[id number], Partial fill upon patient request if the prescription... Start Date: 08/15/22 Status: Ordered Advair HFA 115 mcg / 21 mcg 2 puffs, Inhalation, 2 times a day, # 1 each, 5 Refills, Maintenance, 05/03/22 16:02:00 EDT, Aerosol, [facility] #[id number], Partial fill upon patient request if the prescription is for a schedule II opioid drug., 2 puffs Inhalation 2 times a da... Start Date: 05/03/22 Stop Date: 10/30/22 Status: Ordered albuterol 0.083% inhalation solution 3 mL = 2.5 mg, Inhalation, Every 6 hours, PRN Wheezing/Shortness of Breath, # 60 each, 1 Refills, Maintenance, 11/09/22 13:41:00 EDT, Solution, [facility] #[id number], Partial fill upon patient request if the prescription is for a schedule II opi... Start Date: 11/09/22 Status: Ordered albuterol CFC free 90 mcg/inh inhalation aerosol 2, puffs, Inhalation, Every 6 hours, PRN, for 30 days, # 8.5 Gm, Refills 11, Tot. Refills 11, Hard Stop 04/28/23 11:45:00 EDT, 05/03/22 11:45:00 EDT, Aerosol, Route to Pharmacy Electronically, [id number], [facility]... Start Date: 05/03/22 Stop Date: 04/28/23 Status: Ordered cetirizine 5 mg oral tablet = 5 mg, By Mouth, Daily, # 30 tablet, 0 Refills, Maintenance, 11/17/22 10:48:00 EDT, Tablet, [facility] #[id number], Partial fill upon patient request if the prescription is for a schedule II opioid drug., 156, cm, 11/17/22 8:44:00 EDT, Height, 8... Start Date: 11/17/22 Status: Ordered Depakote 250 mg oral enteric coated tablet 1 tablet = 250 mg, By Mouth, 2 times a day, # 60 tablet, 3 Refills, Maintenance, 02/28/23 16:39:00 EDT, [facility] #[id number], Partial fill upon patient request if the prescription is for a schedule II opioid drug., 155, cm, 02/28/23 11:38:00 ED... Start Date: 02/28/23 Status: Ordered ibuprofen 400 mg oral tablet 400 mg, 1, tablet, By Mouth, Every 4 hours, PRN, # 60 tablet, Refills 0, Tot. Refills 0, Maintenance, for pain, 11/17/22 10:49:00 EDT, Route to Pharmacy Electronically, [facility] #[id number], Partial fill upon patient request if the prescription... Start Date: 11/17/22 Status: Ordered lidocaine 1.8% topical film 1 patch, Topically, Daily, leave on up to 12 hours, # 30 each, 0 Refills, Maintenance, 11/17/22 10:47:00 EDT, Film, [facility] #[id number], Partial fill upon patient request if the prescription is for a schedule II opioid drug., 1 patch Topically... Start Date: 11/17/22 Status: Ordered metroNIDAZOLE 0.75% topical gel 1 application, Topically, Daily at bedtime, use vaginal applicator to insert vaginally nightly for 5 nights, # 45 Gm, 0 Refills, Maintenance, 02/14/23 16:28:00 EDT, Gel, [facility] #[id number], Partial fill upon patient request if the prescriptio... Start Date: 02/14/23 Stop Date: 02/19/23 Status: Ordered metroNIDAZOLE 500 mg oral tablet 1 tablet = 500 mg, By Mouth, Every 12 hours, # 28 tablet, 0 Refills, Maintenance, 01/25/23 16:14:00EDT, Tablet, [facility] #[id number], Partial fill upon patient request if the prescription is for a schedule II opioid drug., 156, cm, 01/25/23 15... Start Date: 01/25/23 Stop Date: 02/08/23 Status: Ordered MiraLax oral powder for reconstitution = 17 Gm, By Mouth, Daily, dissolve in water before taking, # 527 Gm, 0 Refills, Maintenance, 11/17/22 10:47:00 EDT, REC Powder, [facility] #[id number], Partial fill upon patient request if the prescription is for a schedule II opioid drug., 17 Gm... Start Date: 11/17/22 Status: Ordered penicillin V potassium 500 mg oral tablet 1 tablet = 500 mg, By Mouth, 2 times a day, for 10 days, # 20 tablet, 0 Refills, Acute 03/10/23 15:42:00 EDT, 02/28/23 15:42:00 EDT, Tablet, [facility] #[id number], Partial fill upon patient request if the prescription is for a schedule II opioid... Start Date: 02/28/23 Stop Date: 03/10/23 Status: Ordered Spacer for asthma Spacer for [...] Refills, Soft Stop, 01/25/23 10:30:00 EDT, Tablet, [facility] #0... Start Date: 01/25/23 Status: Ordered Problem List Condition Confirmation Course Effective Dates Status Health St atus Informant Anemia Confirmed Active Asthma Confirmed Active COVID-19 1 Confirmed 08/15/22 Active COVID Confirmed Active Depression Confirmed Active Headache Confirmed Active History of pre-eclampsia Confirmed Active Obese class II Confirmed Active Uterine scar from previous delivery Confirmed Active 1Problem added by Discern Expert Results Orders for Microbiology Reports Name Date Group A Strep Screen and Culture 02/28/23 Microbiology Reports TEST:Group A Strep Screen and Culture STATUS:Auth (Verified) BODY SITE: SOURCE:THROAT COLLECTED DATE/TIME:02/28/23 11:30 AM Group A Strep Screen and Culture SPECIMEN DESCRIPTION : THROAT SWAB SPECIAL REQUESTS : NONE DIRECT EXAM : RAPID GROUP A SCREEN IS POSITIVE, CULTURE NOT INDICATED. CULTURE : RAPID GROUP A SCREEN IS POSITIVE, CULTURE NOT INDICATED. REPORT STATUS : FINAL 02/28/2023 Radiology Reports * Exam Date Time Procedure Performing Provider Status 02/28/23 12:[address] Soft Tissue Neck W/ Contrast Juana Grey; Auth (Verified) Notes: (CT Soft Tissue Neck W/ Contrast) Reason For Exam: severe throat pain, swelling L neck;Other: RESULT: CT Soft Tissue Neck W/ Contrast CT Soft Tissue Neck W/ Contrast INDICATION/CLINICAL QUESTION: sore throat, body aches, general weakness. fevers at home.; Reason: Other:; severe throat pain, swelling L neck; Clinical Question(s): Other:; retropharyngeal abscess. TECHNIQUE: Spiral CT neck with IV contrast formatted in 3 planes. 100 cc of Omnipaque 300 was administered intravenously. Weight-based protocol using automatic tube modulation was used to optimize exposure parameters. CTDIvol Body: 12.30 mGy, DLP Body: 387 mGy*cm. COMPARISON: None. FINDINGS: Welding Foreman View Findings, Lines and Tubes: None. Intracranial structures: Visualized portions are unremarkable. Orbits: Visualized portions are unremarkable. Paranasal sinuses and mastoids: Visualized portions are clear. Mucosal surfaces: Mucosal surfaces appear normal and symmetric, including the pharynx, larynx, and visualized portions of the upper trachea and esophagus. Superficial and deep neck spaces: Slight enlargement and heterogeneously decreased density of the left palantine tonsil with no discrete rim-enhancing collection. Cervical lymph nodes: Enlarged cervical lymph nodes are noted bilaterally measuring 1.1 cm on the left and 1.2 cm on the right. Salivary glands: The parotid glands and submandibular glands are normal. Thyroid gland: Normal CT appearance Vascular structures: Unremarkable. Upper chest: The upper lungs are clear. [place] shaped density in the anterior mediastinum is compatible with residual thymus. Bones and teeth: No acute abnormalities. IMPRESSION: Slight enlargement and heterogeneously decreased density in the left palantine tonsil with no discrete rim-enhancing collection, which may reflect tonsillitis. WSN: [id number] Ordering Physician: Anjali Wilkerson Dictated By: Piper Stokes MD Dictated Date/Time: 02/28/23 1:13 pm Reviewed By: Piper Stokes MD Signed By: Piper Stokes MD Signed Date/Time: 02/28/23 1:13 pm Transcribed By: CHARLIE Transcribed Date/Time: 02/28/23 12:54 pm * Exam Date Time Procedure Performing Provider Status 02/28/23 11:46 AM Chest 2 Views Frontal and Lat Kaylee Juana; Auth (Verified) Notes: (Chest 2 Views Frontal and Lat) Reason For Exam: Shortness of Breath, Fever;Other: RESULT: Chest 2 Views Frontal and Lat Chest 2 Views Frontal and Lat Hx of Present Illness: c o sore throat, body aches, general weakness. fevers at home.; Reason: ; Shortness of Breath, Fever; Clinical Question(s): Pneumonia COMPARISON: None. FINDINGS: LINES AND TUBES: None. LUNGS AND PLEURA: Clear lungs. Normal pulmonary vascularity. No pleural effusion. No pneumothorax. HEART, MEDIASTINUM AND DARWIN: Heart is normal in size. Normal mediastinal and hilar contour. BONES AND SOFT TISSUES: No acute abnormality. IMPRESSION: No acute abnormality. WSN: [id number] Ordering Physician: Chelsea Valdez Dictated By: Cody Mendoza MD Dictated Date/Time: 02/28/23 11:49 a Reviewed By: Cody Mendoza MD Signed By: Cody Mendoza MD Signed Date/Time: 02/28/23 11:49 am Transcribed By: CHARLIE Transcribed Date/Time: 02/28/23 11:47 am Vital Signs Most recent to oldest [Reference Range]: 1 2 Height 155 cm (02/28/23 11:38 AM) 155 cm (02/28/23 10:31 AM) Oxygen Saturation [94-100 %] 100 % (02/28/23 2:15 PM) 100 % (02/28/23 10:31 AM) Pulse Rate [55-90 bpm] 95 bpm *H* (02/28/23 2:15 PM) 117 bpm *H* (02/28/23 10:31 AM) Blood Pressure [90-138/55-84 mm Hg] 118/ 69mm Hg (02/28/23 2:15 PM) 123/75mm Hg (02/28/23 10:31 AM) Respiratory Rate [16-30 br/min] 16 br/mi n (02/28/23 2:15 PM) 16 br/min (02/28/23 10:31 AM) Temperature [96.8-100.4 DegF] 99.0 DegF (02/28/23 2:15 PM) 100.5 DegF *H* (02/28/23 10:31 AM) Mode of Delivery (Oxygen) Room air (02/28/23 2:15 PM) Room air (02/28/23 10:31 AM) Blood pressure sites Arm, right (02/28/23 10:31 AM) Temperature Route Oral (02/28/23 2:15 PM) Oral (02/28/23 10:31 AM) Dry Weight 86 kg (02/28/23 11:38 AM) 86 kg (02/28/23 10:31 AM) Dry Weight Obtained Via Patient/family s tated (02/28/23 10:31 AM) Social History Social History Type Response Smoking Status Never (less than 100 in lifetime) entered on: 02/15/22 Sex Female EKG study * Event Display: ECG 12-Lead Authored Date: [id number] Please click on pdf link to open report * Event Display: ECG 12-Lead Authored Date: [id number] Ventricular Rate: 94 BPM Atrial Rate: 94 BPM P-R Interval: 128 ms QRS Duration: 88 ms Q-T Interval: 332 ms QTC Calculation(Bazett): 415 ms P [place]: 42 degrees R [place]: 5 degrees T [place]: 9 degrees Normal sinus rhythm Normal ECG When compared with ECG of 10-NOV-2022 12:57, No significant change was found Confirmed by RENETTA CROUCH MD ([id number]) on 02/28/2023 11:28:09 AM Leslie: RENETTA CROUCH MD Note * Anjali Weaver: PERFORM, SIGN, VERIFY Event Display: Patient Education Handout Authored Date: [id number] * nAjali Weaver: PERFORM Event Display: Patient Education Leaflets Authored Date: [id number] Pharyngitis: Strep (Confirmed) ?? [id number] Pharyngitis: Strep (Confirmed) You have had a positive test for strep throat. Strep throat is a bacterial infection that can be spread to others. It's spread by coughing, kissing, sharing glasses or eating utensils, or by touchingothers after touching your mouth or nose. Symptoms include: ??? Throat pain that's worse when you swallow ??? Aching all over ??? Headache ??? Swollen lymph nodes at the front of the neck ??? Red, swollen tonsils that may have white patches ??? Fever It's treated with antibiotic medicine. You should start to feel better in 1 to 2 days with treatment. Home care ??? Rest at home. Drink plenty of fluids so you won't get??dehydrated. ??? You can returnto school or work if you are feeling better, have been taking the antibiotic for at least 24 hours,and don't have a fever.? Take??antibiotic medicine for the full 10 days, even if you feel better. This is very important to make sure the infection is treated completely.??It's also important toprevent medicine-resistant germs from developing.??If you were given an antibiotic shot, you don't need any more antibiotics. ??? You may use acetaminophen??or ibuprofen to control pain or fever unless another medicine was prescribed for this. Talk with your healthcare provider before taking these m edicines if you have??chronic liver or kidney disease or if you have??had a stomach ulcer or digestive bleeding. ??? Throat lozenges or sprays help reduce pain. Gargling with warm saltwater will alsoease throat pain. Dissolve 1/2 teaspoon of salt in 1 glass of warm water. This may be useful just before meals.? Soft foods and cool or warm fluids are best. Don't eat salty or spicy foods. ?? Follow-up care Follow up with your healthcare provider if you don't get better over the next week. ?? When to get medical advice Call your healthcare provider right away if any of the following occur: ??? Fever of 100.4??F (38??C) or higher, or as directed by your healthcare provider ??? Ear pain, sinus pain, or headache that is new or gets worse ??? Painful lumps in the back of neck ??? Stiff neck ??? Lymph nodes??getting larger or becoming soft in the middle ??? You have trouble swallowing liquids or you can't??open yourmouth wide because of??throat pain ??? Signs of dehydration. These include very dark urine or no urine, sunken eyes, and dizziness. ??? Noisy breathing ??? Muffled voice ??? Rash ?? Call 911 Call 911right away if either of these occur: ??? Have trouble breathing ??? Can't swallow or talk ?? Prevention Here are steps you can take to help prevent an infection: ??? Wash your hands often with soap and clean, running water for at least 20 seconds. ??? Don???t have close contact with people who have sore throats, colds, or other upper respiratory infections. ??? Don???t smoke and stay away from secondhand smoke. ?? Last Reviewed Date: 2021 ?? 4445-7196 [employer]. All rights reserved. This information is not intended as a substitute for professional medical care. Always follow your healthcare professional's instructions. ?? Patient Care team information Care Team Personnel Name: Gauri Pascual Position: [facility] RN Member Role: Primary Care Nurse Name: Lorraine Zendejas MD Position: [facility] Physician - Primary Care Member Role: PCP Address: Address: [address] [place] [address] Name: Chelsea Valdez MD Position: [facility] ED Medicine MD Member Role: Admitting Physician Address: Address: [address] [place] [address]- Name: Delmy Velez Position: [facility] ED TA [facility] Member Role: Patient Care Provider Name: Kee Dewitt Position: [facility] ED TA [facility] Name: Elis Batista RN Position: [facility] ED RN W/OE and Tasks Member Role: Patient Care Provider Name: Anjali Weaver Position: [facility] Associate Professional Member Role: ED Physician Rn School Address: Address: [address] [place] [address]- Care Team Related Persons Name: RELL PHELPS Address: [address] [address] Name: BREEPriyaRUSLAN Address: [address] Address: home [address] [place] [address] [place] Name: NAY DEL ANGEL Address: home [address] [place] [address] Name: PRAVIN PARKER Address: home [address] [place] [address] Name: ADITHYA HAYDEN Address: [address] Address: [address] [address] [place] Name: JACKELYN PRAVIN Address: home [address] [place] [address]
--- OUTSIDE RECORDS SUMMARY | 2023-11-16 17:17 | XMS_ITS | Continuity of Care Document ---
Author Organization [facility] Address [address] [place] [address]- Care Team Providers Care Agency Manager Name Role Phone Aashish IBARRA, Lorraine Primary Care Physician [phone] Encounter [facility] Date(s): 01/23/23 - 02/22/[address] [address] Allergies, Adverse Reactions, Alerts Substance Reaction [...] 08/15/22 15:08:00 EST, Route to Pharmacy Electronically, [facility] #[id number], Partial fill upon patient request if the prescription... Start Date: 08/15/22 Status: Ordered Advair HFA 115 mcg / 21 mcg 2 puffs, Inhalation, 2 times a day, # 1 each, 5 Refills, Maintenance, 05/03/22 16:02:00 EDT, Aerosol, [facility] #[id number], Partial fill upon patient request if the prescription is for a schedule II opioid drug., 2 puffs Inhalation 2 times a da... Start Date: 05/03/22 Stop Date: 10/30/22 Status: Ordered albuterol 0.083% inhalation solution 3 mL = 2.5 mg, Inhalation, Every 6 hours, PRN Wheezing/Shortness of Breath, # 60 each, 1 Refills, Maintenance, 11/09/22 13:41:00 EDT, Solution, [facility] #[id number], Partial fill upon patient request if the prescription is for a schedule II opi... Start Date: 11/09/22 Status: Ordered albuterol CFC free 90 mcg/inh inhalation aerosol 2, puffs, Inhalation, Every 6 hours, PRN, for 30 days, # 8.5 Gm, Refills 11, Tot. Refills 11, Hard Stop 04/28/23 11:45:00 EDT, 05/03/22 11:45:00 EDT, Aerosol, Route to Pharmacy Electronically, [id number], [facility]... Start Date: 05/03/22 Stop Date: 04/28/23 Status: Ordered cetirizine 5 mg oral tablet = 5 mg, By Mouth, Daily, # 30 tablet, 0 Refills, Maintenance, 11/17/22 10:48:00 EDT, Tablet, [facility] #[id number], Partial fill upon patient request if the prescription is for a schedule II opioid drug., 156, cm, 11/17/22 8:44:00 EDT, Height, 8... Start Date: 11/17/22 Status: Ordered ibuprofen 400 mg oral tablet 400 mg, 1, tablet, By Mouth, Every 4 hours, PRN, # 60 tablet, Refills 0, Tot. Refills 0, Maintenance, for pain, 11/17/22 10:49:00 EDT, Route to Pharmacy Electronically, [facility] #[id number], Partial fill upon patient request if the prescription... Start Date: 11/17/22 Status: Ordered lidocaine 1.8% topical film 1 patch, Topically, Daily, leave on up to 12 hours, # 30 each, 0 Refills, Maintenance, 11/17/22 10:47:00 EDT, Film, [facility] #[id number], Partial fill upon patient request if the prescription is for a schedule II opioid drug., 1 patch Topically... Start Date: 11/17/22 Status: Ordered metroNIDAZOLE 0.75% topical gel 1 application, Topically, Daily at bedtime, use vaginal applicator to insert vaginally nightly for 5 nights, # 45 Gm, 0 Refills, Maintenance, 02/14/23 16:28:00 EDT, Gel, [facility] #[id number], Partial fill upon patient request if the prescriptio... Start Date: 02/14/23 Stop Date: 02/19/23 Status: Ordered metroNIDAZOLE 500 mg oral tablet 1 tablet = 500 mg, By Mouth, Every 12 hours, # 28 tablet, 0 Refills, Maintenance, 01/25/23 16:14:00EDT, [facility] #[id number], Partial fill upon patient request if the prescription is for a schedule II opioid drug., 156, cm, 01/25/23 15... Start Date: 01/25/23 Stop Date: 02/08/23 Status: Ordered MiraLax oral powder for reconstitution = 17 Gm, By Mouth, Daily, dissolve in water before taking, # 527 Gm, 0 Refills, Maintenance, 11/17/22 10:47:00 EDT, REC Powder, [facility] #[id number], Partial fill upon patient request if the [...] Refills, Soft Stop, 01/25/23 10:30:00 EDT, Tablet, [facility]... Start Date: 01/25/23 Status: [...] Care Team Personnel Name: Gauri Pascual Position: [facility] RN Member Role: Primary Care Nurse Name: Lorraine Zendejas MD Position: [facility] Physician - Primary Care Member Role: PCP Address: Address: [address] [place] [address]- Care Team Related Persons Name: RELL PHELPS Address: [address] [address] Name: RUSLAN ABREU Address: [address] Address: [address] [address] [place] Name: NAY DEL ANGEL Address: [address] [place] [address] Name: PRAVIN PARKER Address: home [address] [place] [address] Name: ADITHYA HAYDEN Address: [address] Address: home [address] [address] [place] Name: PRAVIN HAYDEN Address: [address] [place] [address]
--- OUTSIDE RECORDS SUMMARY | 2023-11-16 17:17 | XMS_ITS | Continuity of Care Document ---
Author Organization [facility] Address [address] [place] [address]- Care Team Providers Care Digital Content Marketing Manager Name Role Phone Aashish IBARRA, Lorraine Primary Care Physician [phone] Encounter [facility] Date(s): 08/12/20 - 09/11/[address] [address]- Allergies, Adverse Reactions, Alerts Substance Reaction Severity [...] 2Admin Note: ORAL 3Admin Note: ORAL Medications cyclobenzaprine 10 mg oral tablet 1, tablet, By Mouth, 3 times a day, PRN, # 45 tablet, Refills 0, Tot. Refills 0, Acute, NEEDED FOR SPASM, 08/25/20 9:53:00 EST, Route to Pharmacy Electronically, [facility] #[id number], 157, cm, 06/08/20 15:12:00 EST, Height, 84.5, kg, ... Start Date: 08/25/20 Status: Ordered Flovent HFA 220 mcg/inh inhalation aerosol 2 puffs, Inhalation, 2 times a day, use with spacer chamber rinse mouth and throat after use, # 1 each, 5 Refills, Maintenance, 08/04/20 12:45:00 EST, Aerosol, [facility] #[id number], 157, cm, 06/08/20 15:12:00 EST, Height, 84.5, kg, 04/29/19 4:... Start Date: 08/04/20 Status: Ordered lidocaine 4% topical film 1 patch, Topically, Daily, # 15 each, 0 Refills, Acute 09/13/20 13:33:00 EST, 08/13/20 13:33:00 EST, Film, [facility] #[id number], Partial fill upon patient request if the prescription is for a schedule II opioid drug., 1 patch Topically Daily, 1... Start Date: 08/13/20 Stop Date: 09/13/20 Status: Ordered ProAir HFA 90 mcg/inh inhalation aerosol with adapter 2, puffs, Inhalation, Every 4 hours, PRN, # 8.5 Gm, Refills 5, Tot. Refills 5, Maintenance, 08/04/20 12:45:00 EST, Aerosol, Route to Pharmacy Electronically, [id number], [facility] #[id number], 157, cm, 06/08/20 15:12:00... Start Date: 08/04/20 [...] # 18 tablet, 1 Refills, Soft Stop, [facility] #[id number], 157, cm, 07/31/19 8:49:00 EST, Height, 84.5, kg, 04/29/19 4:40:00 EDT, D... Start Date: 10/07/19 Status: Ordered Xulane 150 mcg-35 mcg/24 hr transdermal film, extended release 1 patch, Topically, Every week, # 3 each, 11 Refills, Maintenance, 05/26/20 10:54:00 EDT, [facility] #[id number], 1 patch Topically Every week,x7 days, 157, cm, 03/23/20 15:02:00 EDT, Height, 84.5, kg, 04/29/19 4:40:00 EDT, Dry Weight Start Date: 05/26/20 Stop Date: 08/18/20 Status: Ordered Problem List Condition Effective Dates Status Health Status Inform ant Anemia(Confirmed) Active Asthma(Confirmed) Active Depression(Confirmed) Active Fall(Confirmed) Active Fatigue(Confirmed) Active Headache(Confirmed) Active History of pre-eclampsia(Confirmed) Active Contraception management(Confirmed) Active Social History Social History Type Response Smoking Status Never smoker; Tobacc o user in household: No entered on: 12/05/16 Sex Female
--- OUTSIDE RECORDS SUMMARY | 2023-11-16 17:17 | XMS_ITS | Continuity of Care Document ---
Author Organization [facility] Address [address] [place] [address]- Care Team Providers Care Diesel Maintenance Electrician Name Role Phone Aashish IBARRA, Lorraine Primary Care Physician [phone] Encounter [facility] Date(s): 08/28/22 - 09/27/[address] [address]- Allergies, Adverse Reactions, Alerts Substance Reaction Severity [...] 08/15/22 15:08:00 EST, Route to Pharmacy Electronically, [facility] #[id number], Partial fill upon patient request if the prescription... Start Date: 08/15/22 Status: Ordered Advair HFA 115 mcg / 21 mcg 2 puffs, Inhalation, 2 times a day, # 1 each, 5 Refills, Maintenance, 05/03/22 16:02:00 EDT, Aerosol, [facility] #[id number], Partial fill upon patient request if the prescription is for a schedule II opioid drug., 2 puffs Inhalation 2 times a da... Start Date: 05/03/22 Stop Date: 10/30/22 Status: Ordered albuterol CFC free 90 mcg/inh inhalation aerosol 2, puffs, Inhalation, Every 6 hours, PRN, # 8.5 Gm, Refills 11, Tot. Refills 11, Maintenance, 05/03/22 11:45:00 EDT, Aerosol, Route to Pharmacy Electronically, [id number], [facility] #[id number], dispense brand preferred... Start Date: 05/03/22 Stop Date: 04/28/23 Status: Ordered clotrimazole 1% topical cream 1 application, Topically, 2 times a day, # 12 Gm, 0 Refills, Maintenance, 04/11/22 4:42:00 EDT, Cream, [facility] #[id number], Partial fill upon patient request if the prescription is for a schedule II opioid drug., 1 application Topically 2 time... Start Date: 04/11/22 Status: Ordered Colace sodium 100 mg oral capsule 100 mg, 1, capsule, By Mouth, 2 times a day, PRN, # 20 capsule, Refills 0, Tot. Refills 0, Maintenance, for constipation, 03/18/22 15:18:00 EDT, Route to Pharmacy Electronically, [facility]#[id number], Partial fill upon patient request if the pr... Start Date: 03/18/22 Status: Ordered ferrous sulfate 325 mg oral tablet 1 tablet = 325 mg, By Mouth, Daily, # 30 tablet, 3 Refills, Maintenance, 01/05/22 12:46:00 EDT, Tablet, [facility] #[id number], Partial fill upon patient request if the prescription is for a schedule II opioid drug., 154, cm, 01/04/22 13:56:00 ED... Start Date: 01/05/22 Status: Ordered MiraLax oral powder for reconstitution = 17 Gm, By Mouth, Daily, dissolve in water before taking, # 527 Gm, 0 Refills, Maintenance, 08/16/21 13:56:00 EST, REC Powder, [facility] #[id number], Partial fill upon patient request if the prescription is for a schedule II opioid drug., 17 Gm... Start Date: 08/16/21 Status: Ordered Multivitamins with Folic Acid 1 mg oral tablet 1 tablet, By Mouth, Daily, # 90 tablet, 3 Refills, Maintenance, 05/03/22 12:05:00 EDT, Tablet, [facility] #[id number], Partial fill upon patient request if the prescription is for a schedule II opioid drug., 1 tablet By Mouth Daily,x90 days, 157,... Start Date: 05/03/22 Stop Date: 04/28/23 Status: Ordered simethicone 125 mg oral tablet, chewable 1 tablet = 125 mg, Chew, 4 times a day, # 48 tablet, 0 Refills, Maintenance, 03/18/22 15:18:00 EDT,Chew Tablet, [facility] #[id number], Partial fill upon patient request if the prescription is for a schedule II opioid drug., 154, cm, 03/18/22 11... Start Date: 03/18/22 Status: Ordered Spacer for asthma Spacer for asthma, See Instructions, # 1 units, Refills 0, Tot. Refills 0, Maintenance, Spacer for asthma, 10/30/18 11:47:08 EDT, Compound Start Date: 10/30/18 Status: Ordered Problem List Condition Confirmation Course [...] Care team information Care Team Personnel Name: aGuri Pascual Position: S RN Member Role: Primary Care Nurse Name: Lorraine Zendejas MD Position: [facility] Primary Care Physician Member Role: PCP Address: Address: [address] [place] [address]- Care Team Related Persons Name: RELL PHELPS Address: [address] [address] Name: RUSLNA ABREU Address: [address] Address: [address] [address] [place] Name: NAY DEL ANGEL Address: [address] [place] [address] Name: PRAVIN PARKER Address: [address] [address] Name: ADITHYA HAYDEN Address: [address] Address: home [address] [address] [place] Name: PRAVIN HAYDEN Address: [address] [address]
--- OUTSIDE RECORDS SUMMARY | 2023-11-16 17:17 | XMS_ITS | Continuity of Care Document ---
Author Organization [facility] Address [address] [place] [address]- Care Team Providers Care Mobile Sales Assistant Name Role Phone Aashish IBARRA, Lorraine Primary Care Physician [facility] Date(s): 04/04/22 - 05/04/22 [facility] [address] [address]- Allergies, Adverse Reactions, Alerts Substance Reaction Severity [...] pain, # 50 tablet, 0 Refills, Maintenance, 03/18/22 15:18:00 EDT, Capsule, [facility] #[id number], Partial fill upon patient request if the prescription is for a schedule II opioid . Start Date: 03/18/22 Status: Ordered Advair HFA 115 mcg / 21 mcg 2 puffs, Inhalation, 2 times a day, # 1 each, 5 Refills, Maintenance, 05/03/22 16:02:00 EDT, Aerosol, [facility] #[id number], Partial fill upon patient request if the prescription is for a schedule II opioid drug., 2 puffs Inhalation 2 times a da... Start Date: 05/03/22 Stop Date: 10/30/22 Status: Ordered albuterol CFC free 90 mcg/inh inhalation aerosol 2, puffs, Inhalation, Every 6 hours, PRN, # 8.5 Gm, Refills 11, Tot. Refills 11, Maintenance, 05/03/22 11:45:00 EDT, Aerosol, Route to Pharmacy Electronically, [id number], [facility] #[id number], dispense brand preferred... Start Date: 05/03/22 Stop Date: 04/28/23 Status: Ordered clotrimazole 1% topical cream 1 application, Topically, 2 times a day, # 12 Gm, 0 Refills, Maintenance, 04/11/22 4:42:00 EDT, Cream, [facility] #[id number], Partial fill upon patient request if the prescription is for a schedule II opioid drug., 1 application Topically 2 time... Start Date: 04/11/22 Status: Ordered Colace sodium 100 mg oral capsule 100 mg, 1, capsule, By Mouth, 2 times a day, PRN, # 20 capsule, Refills 0, Tot. Refills 0, Maintenance, for constipation, 03/18/22 15:18:00 EDT, Route to Pharmacy Electronically, [facility]#[id number], Partial fill upon patient request if the pr... Start Date: 03/18/22 Status: Ordered Dilaudid 2 mg oral tablet 1 tablet = 2 mg, By Mouth, Every 4 hours, # 10 tablet, 0 Refills, Maintenance, 03/18/22 18:17:00 EDT, Tablet, [facility] #[id number], Partial fill upon patient request if the prescription is fora schedule II opioid drug., 154, cm, 03/18/22 11:26... Start Date: 03/18/22 Status: Ordered ferrous sulfate 325 mg oral tablet 1 tablet = 325 mg, By Mouth, Daily, # 30 tablet, 3 Refills, Maintenance, 01/05/22 12:46:00 EDT, Tablet, [facility] #[id number], Partial fill upon patient request if the prescription is for a schedule II opioid drug., 154, cm, 01/04/22 13:56:00 ED... Start Date: 01/05/22 Status: Ordered ibuprofen 600 mg oral tablet 600 mg, 1, tablet, By Mouth, Every 6 hours, # 50 tablet, Refills 0, Tot. Refills 0, Maintenance, 03/18/22 15:18:00 EDT, Route to Pharmacy Electronically, [facility] #[id number], Partial fill upon patient request if the prescription is for a sched... Start Date: 03/18/22 Status: Ordered magnesium oxide 400 mg oral tablet 1 tablet = 400 mg, By Mouth, Daily, for 30 days, to treat and prevent headaches, # 30 tablet, 3 Refills, Acute 06/22/22 19:25:00 EST, 02/22/22 19:25:00 EDT, Tablet, [facility] #[id number], Partial fill upon patient request if the prescription is... Start Date: 02/22/22 Stop Date: 06/22/22 Status: Ordered MiraLax oral powder for reconstitution = 17 Gm, By Mouth, Daily, dissolve in water before taking, # 527 Gm, 0 Refills, Maintenance, 08/16/21 13:56:00 EST, REC Powder, [facility] #[id number], Partial fill upon patient request if the prescription is for a schedule II opioid drug., 17 Gm... Start Date: 08/16/21 Status: Ordered Multivitamins with Folic Acid 1 mg oral tablet 1 tablet, By Mouth, Daily, # 90 tablet, 3 Refills, Maintenance, 05/03/22 12:05:00 EDT, Tablet, [facility] #[id number], Partial fill upon patient request if the prescription is for a schedule II opioid drug., 1 tablet By Mouth Daily,x90 days, 157,... Start Date: 05/03/22 Stop Date: 04/28/23 Status: Ordered simethicone 125 mg oral tablet, chewable 1 tablet = 125 mg, Chew, 4 times a day, # 48 tablet, 0 Refills, Maintenance, 03/18/22 15:18:00 EDT,Chew Tablet, [facility] #[id number], Partial fill upon patient request if the [...] 0 Refills, Maintenance, 03/18/22 15:18:00 EDT, Cream, [facility] #[id number], Partial fill upon patient request if the [...] Personnel Name: Lorraine Zendejas MD Address: Address: [address] [place] [address]
--- OUTSIDE RECORDS SUMMARY | 2023-11-16 17:17 | XMS_ITS | Continuity of Care Document ---
Author Organization [facility] n[facility] Address [address] [facility], [address] [place] [address]- Care Team Providers Care Jigman Name Role Phone Aashish IBARRA, Lorraine Primary Care Physician [phone] Encounter [facility] Date(s): 01/05/22 - 02/04/22 [facility] Nikolay Louises [facility] [address], [address] [place] [address]- Allergies, Adverse Reactions, Alerts Substance Reaction Severity [...] 60 each, 5 Refills, Maintenance, 11/25/21 15:15:00 EDT, Aerosol, [facility] #[id number], Partial fill upon patient request if the prescription is for a schedule II opioid drug., 2 puffs Inhalation 2 times a d... Start Date: 11/25/21 Status: Ordered Aspirin Low Dose 81 mg oral delayed release tablet 2 tablet, By Mouth, Daily, START AT 12 WEEKS, 09/11/21, # 90 tablet, 3 Refills, [facility] #[id number], 154, cm, 01/04/22 13:56:00 EDT, Height, 86.5, kg, 10/29/21 21:50:00 EDT, Dry Weight Start Date: 01/05/22 Status: Ordered Benadryl 25 mg oral capsule 2 capsule = 50 mg, By Mouth, Daily at bedtime, PRN Pain , Moderate, # 100 capsule, 0 Refills, Maintenance, 11/08/21 15:02:00 EDT, Capsule, [email or web address] #[id number], Partial fill upon patient request if the prescription is for a schedule II opioid d... Start Date: 11/08/21 Status: Ordered ferrous sulfate 325 mg oral tablet 1 tablet = 325 mg, By Mouth, Daily, # 30 tablet, 3 Refills, Maintenance, 01/05/22 12:46:00 EDT, Tablet, [email or web address] #[id number], Partial fill upon patient request if the prescription is for a schedule II opioid drug., 154, cm, 01/04/22 13:56:00 ED... Start Date: 01/05/22 Status: Ordered Lidoderm 5% film 1 patch, Topically, Daily, (remove patch(s) after 12 hours), # 30 patch, 5 Refills, Maintenance, 11/25/21 15:09:00 EDT, [email or web address] #[id number], Partial fill upon patient request if the prescription is for a schedule II opioid drug., 1 patch Topic... Start Date: 11/25/21 Status: Ordered MiraLax oral powder for reconstitution = 17 Gm, By Mouth, Daily, dissolve in water before taking, # 527 Gm, 0 Refills, Maintenance, 08/16/21 13:56:00 EST, REC Powder, [email or web address] #[id number], Partial fill upon patient request if the prescription is for a schedule II opioid drug., 17 Gm... Start Date: 08/16/21 Status: Ordered Multivitamins with Folic Acid 1 mg oral tablet 1 tablet, By Mouth, Daily, # 90 tablet, 3 Refills, Maintenance, 09/16/21 15:48:00 EST, Tablet, [facility] #[id number], Partial fill upon patient request if the prescription is for a schedule II opioid drug., 1 tablet By Mouth Daily, 157, cm, 0... Start Date: 09/16/21 Status: Ordered ProAir HFA 90 mcg/inh inhalation aerosol with adapter 2, puffs, Inhalation, Every 4 hours, PRN, # 8.5 Gm, Refills 2, Tot. Refills 2, Maintenance, 11/25/21 15:15:00 EDT, Aerosol, Route to Pharmacy Electronically, [id number], [facility] #[id number], 154, cm, 11/25/21 14:53:00... Start Date: 11/25/21 [...] 1 Refills, Maintenance, 01/08/22 14:18:00 EDT, Capsule, [facility] #[id number], Partial fill upon patient request if the [...]
--- OUTSIDE RECORDS SUMMARY | 2023-11-16 17:17 | XMS_ITS | Continuity of Care Document ---
Author Organization [facility] Address [address] [place] [address]- Care Team Providers Care Electronics Engineering Technician Name Role Phone Lorraine Zendejas MD Primary Care Physician Encounter [facility] Date(s): 07/24/21 - 07/24/[address] [address] Discharge Disposition: A-D/C Home Attending Physician: Von Hagan DO Admitting Physician: Von Hagan DO Referring Physician: Von Hagan DO Allergies, Adverse Reactions, Alerts Substance Reaction Severity [...] 5 Refills, Maintenance, 11/16/20 15:34:00 EDT, Aerosol, [facility] #[id number], Partial fill upon patient request if the prescription is for a schedule II opioid drug., 2 puffs Inhalation 2 times a d... Start Date: 11/16/20 Status: Ordered cyclobenzaprine 10 mg oral tablet 1, tablet, By Mouth, 3 times a day, PRN, # 45 tablet, Refills 0, Tot. Refills 0, Acute, NEEDED FOR SPASM, 08/25/20 9:53:00 EST, Route to Pharmacy Electronically, [facility] #[id number], 157, cm, 06/08/20 15:12:00 EST, Height, 84.5, kg, ... Start Date: 08/25/20 Status: Ordered Lidoderm 5% film 1 patch, Topically, Daily, (remove patch(s) after 12 hours), # 30 patch, 0 Refills, Maintenance, 10/12/20 11:07:00 EST, [facility] #[id number], Partial fill upon patient request if the prescription is for a schedule II opioid drug., 1 patch Topic... Start Date: 10/12/20 Status: Ordered ProAir HFA 90 mcg/inh inhalation aerosol with adapter 2, puffs, Inhalation, Every 4 hours, PRN, # 8.5 Gm, Refills 5, Tot. Refills 5, Maintenance, 01/06/21 8:08:00 EDT, Aerosol, Route to Pharmacy Electronically, [id number], [facility] #[id number], 157, cm, 11/17/20 9:48:00 E... Start Date: [...] tablet, 0 Refills, Maintenance, 12/13/20 14:28:00 EDT, [facility] #[id number], 157, cm, 11/17/20 9:48:00 EDT, Height, 84.5, kg... Start Date: 12/13/20 Status: Ordered Tylenol 325 mg oral tablet 975 mg, Tablet, By Mouth, Once, PRN for Pain , Moderate, Routine, 07/24/21 21:26:00 EST Start Date: 07/24/21 Stop Date: 07/24/21 Status: Completed Xulane 150 mcg-35 mcg/24 hr transdermal film, extended release 1 patch, Topically, Every week, # 3 each, 11 Refills, Maintenance, 03/29/21 11:42:00 EDT, [facility] #[id number], 1 patch Topically Every week,x7 days, 157, cm, 03/29/21 10:26:00 EDT, Height, 84.5, kg, 04/29/19 4:40:00 EDT, Dry Weight Start Date: 03/29/21 Stop Date: 06/21/21 Status: Ordered Problem List Condition Effective Dates Status Health Status Inform ant Anemia(Confirmed) Active Asthma(Confirmed) Active Chest pain(Confirmed) Active Depression(Confirmed) Active Fall(Confirmed) Active Fatigue(Confirmed) Active Headache(Confirmed) Active History of pre-eclampsia(Confirmed) Active Contraception management(Confirmed) Active Vital Signs Most recent to oldest [Reference Range]: 1 2 Weight 86.0 kg (07/24/21 8:05 PM) Oxygen Saturation [94-100 %] 100 % (07/24/21 8:06 PM) Pulse Rate [55-90 bpm] 90 bpm (07/24/21 8:06 PM) Blood Pressure [90-138/55-84 mm Hg] 132/ 75mm Hg (07/24/21 8:06 PM) Respiratory Rate [16-30 br/min] 18 br/mi n (07/24/21 10:01 PM) 18 br/min (07/24/21 8:06 PM) Temperature [96.8-100.4 DegF] 98.4 DegF (07/24/21 8:06 PM) Mode of Delivery (Oxygen) Room air (07/24/21 8:06 PM) Blood pressure sites Arm, right (07/24/21 8:06 PM) Temperature Route Oral (07/24/21 8:06 PM) Dry Weight 86.0 kg (07/24/21 8:05 PM) Weight Obtained Via Standing scale (07/24/21 8:05 PM) Social History Social History Type Response Smoking Status Never smoker; Tobacc o user in household: No entered on: 12/05/16 Sex Female
--- OUTSIDE RECORDS SUMMARY | 2023-11-16 17:17 | XMS_ITS | Continuity of Care Document ---
Author Organization [facility] Address [address] [place] [address]- Care Team Providers Care Blood Bank Credit Clerk Name Role Phone Aashish IBARRA, Lorraine Primary Care Physician [phone] Encounter [facility] Date(s): 07/17/22 - 08/16/[address] [address]- Attending Physician: Roque Villela Admitting Physician: Roque Villela Referring Physician: AdmtrRoque [...] 0 Refills, Maintenance, 05/17/22 15:05:00 EDT, Capsule, [facility] #[id number], Partial fill upon patient request if the prescription is for a schedule II opioid . Start Date: 05/17/22 Status: Ordered acetaminophen 325 mg oral tablet 650 mg, 2, tablet, By Mouth, Every 4 hours, PRN, # 30 tablet, Refills 0, Tot. Refills 0, Maintenance, for pain, 08/15/22 15:08:00 EST, Route to Pharmacy Electronically, [facility] #[id number], Partial fill upon patient request if the prescription... Start Date: 08/15/22 Status: Ordered Advair HFA 115 mcg / 21 mcg 2 puffs, Inhalation, 2 times a day, # 1 each, 5 Refills, Maintenance, 05/03/22 16:02:00 EDT, Aerosol, [facility] #[id number], Partial fill upon patient request if the prescription is for a schedule II opioid drug., 2 puffs Inhalation 2 times a da... Start Date: 05/03/22 Stop Date: 10/30/22 Status: Ordered albuterol CFC free 90 mcg/inh inhalation aerosol 2, puffs, Inhalation, Every 6 hours, PRN, # 8.5 Gm, Refills 11, Tot. Refills 11, Maintenance, 05/03/22 11:45:00 EDT, Aerosol, Route to Pharmacy Electronically, [id number], [facility] #[id number], dispense brand preferred... Start Date: 05/03/22 Stop Date: 04/28/23 Status: Ordered clotrimazole 1% topical cream 1 application, Topically, 2 times a day, # 12 Gm, 0 Refills, Maintenance, 04/11/22 4:42:00 EDT, Cream, [facility] #[id number], Partial fill upon patient request if the prescription is for a schedule II opioid drug., 1 application Topically 2 time... Start Date: 04/11/22 Status: Ordered Colace sodium 100 mg oral capsule 100 mg, 1, capsule, By Mouth, 2 times a day, PRN, # 20 capsule, Refills 0, Tot. Refills 0, Maintenance, for constipation, 03/18/22 15:18:00 EDT, Route to Pharmacy Electronically, [facility]#[id number], Partial fill upon patient request if the pr... Start Date: 03/18/22 Status: Ordered Dilaudid 2 mg oral tablet 1 tablet = 2 mg, By Mouth, Every 4 hours, # 10 tablet, 0 Refills, Maintenance, 03/18/22 18:17:00 EDT, Tablet, [facility] #[id number], Partial fill upon patient request if the prescription is fora schedule II opioid drug., 154, cm, 03/18/22 11:26... Start Date: 03/18/22 Status: Ordered ferrous sulfate 325 mg oral tablet 1 tablet = 325 mg, By Mouth, Daily, # 30 tablet, 3 Refills, Maintenance, 01/05/22 12:46:00 EDT, Tablet, [facility] #[id number], Partial fill upon patient request if the prescription is for a schedule II opioid drug., 154, cm, 01/04/22 13:56:00 ED... Start Date: 01/05/22 Status: Ordered ibuprofen 600 mg oral tablet 600 mg, 1, tablet, By Mouth, Every 6 hours, # 50 tablet, Refills 0, Tot. Refills 0, Maintenance, 03/18/22 15:18:00 EDT, Route to Pharmacy Electronically, [facility] #[id number], Partial fill upon patient request if the prescription is for a sched... Start Date: 03/18/22 Status: Ordered ibuprofen 600 mg oral tablet 600 mg, 1, tablet, By Mouth, 3 times a day, PRN, for 30 days, with food or milk, take for 5 days onschedule and then only if needed, # 90 tablet, Refills 0, Tot. Refills 0, Acute 09/08/22 14:48:00 EST, Pain , Mild, 08/09/22 14:48:00 EST, Route to Pha... Start Date: 08/09/22 Stop Date: 09/08/22 Status: Ordered MiraLax oral powder for reconstitution = 17 Gm, By Mouth, Daily, dissolve in water before taking, # 527 Gm, 0 Refills, Maintenance, 08/16/21 13:56:00 EST, REC Powder, [facility] #[id number], Partial fill upon patient request if the prescription is for a schedule II opioid drug., 17 Gm... Start Date: 08/16/21 Status: Ordered Multivitamins with Folic Acid 1 mg oral tablet 1 tablet, By Mouth, Daily, # 90 tablet, 3 Refills, Maintenance, 05/03/22 12:05:00 EDT, Tablet, [facility] #[id number], Partial fill upon patient request if the prescription is for a schedule II opioid drug., 1 tablet By Mouth Daily,x90 days, 157,... Start Date: 05/03/22 Stop Date: 04/28/23 Status: Ordered simethicone 125 mg oral tablet, chewable 1 tablet = 125 mg, Chew, 4 times a day, # 48 tablet, 0 Refills, Maintenance, 03/18/22 15:18:00 EDT,Chew Tablet, [facility] #[id number], Partial fill upon patient request if the [...] 0 Refills, Maintenance, 03/18/22 15:18:00 EDT, Cream, [facility] #[id number], Partial fill upon patient request if the prescription is for a schedule II opioid drug., 1 application Topically 2 ti... Start Date: 03/18/22 Status: Ordered Problem List Condition Confirmation Course Effective Dates Status Health St atus Informant Anemia Confirmed Active Asthma Confirmed Active COVID-19 1 Confirmed 08/15/22 Active Depression Confirmed Active Headache Confirmed Active History of pre-eclampsia Confirmed Active Uterine scar from previous delivery Confirmed Active 1Problem added by Discern Expert Social History Social History Type Response Smoking Status Never (less than 100 in lifetime) entered on: 02/15/22 Sex Female Patient Care team information Care Team Personnel Name: Gauri Pascual Position: S RN Member Role: Primary Care Nurse Name: Lorraine Zendejas MD Position: [facility] Primary Care Physician Member Role: PCP Address: Address: [address] [place] [address] Care Team Related Persons Name: RELL PHELPS Address: [address] [address] Name: RUSLAN ABREU Address: [address] Address: [address] [address] [place] Name: NAY DEL ANGEL Address: [address] [place] [address] Name: PRAVIN PARKER Address: [address] [address] Name: ADITHYA HAYDEN Address: [address] Address: home [address] [address] Name: PRAVIN HAYDEN Address: [address] [address]
--- OUTSIDE RECORDS SUMMARY | 2023-11-16 17:17 | XMS_ITS | Continuity of Care Document ---
Author Organization [facility] Address [address] [facility], [address] Floor, [address] [place] [address]- Care Team Providers Care Showroom Manager Name Role Phone Lorraine Zendejas MD Primary Care Physician Encounter [facility] Date(s): 07/04/19 - 11/01/19 [facility] [address] [place], [address], [address] [place] [address] [facility] Attending Physician: Dena Hylton MD Admitting Physician: [...] Refills, Maintenance, 08/04/19 15:51:00 EST, Chew Tablet, [facility] #[id number], 1 tablet Chew Daily,x90 days, 157, cm, [...] 11:47:01 EDT, Aerosol, Route to Pharmacy Electronically, [id number], [email or web address] [id number] Start Date: 10/30/18 Status: Ordered Slow Fe [...] # 18 tablet, 1 Refills, Soft Stop, [facility] #[id number], 157, cm, 07/31/19 8:49:00 EST, Height, 84.5, [...]
--- OUTSIDE RECORDS SUMMARY | 2023-11-16 17:17 | XMS_ITS | Continuity of Care Document ---
Author Organization [facility] Address [address] [facility], [address] Floor, [address] [place] [id number]- Care Team Providers Care Hydro Operator Name Role Phone Lorraine Zendejas MD Primary Care Physician [phone] Encounter [facility] [place](s): 11/03/19 - 11/10/19 [facility] [address], [address], [address] [place] [id number]- [facility] Attending Physician: Selina Orellana MD Admitting Physician: [...] 12:31:00 EDT, Aerosol, [facility] #[id number], 157, cm, 07/31/19 8:49:00 EST, Height, 84.5, kg, 04/29/19 4:4... Start Date: 11/03/19 Status: Ordered magnesium oxide 400 mg oral tablet 1 tablet = 400 mg, By Mouth, Daily, # 30 tablet, 3 Refills, Maintenance, 06/30/19 16:13:01 EST, Tablet Start Date: 06/30/19 Stop Date: 10/28/19 Status: Ordered multivitamin, Multivitamins oral tablet, chewable 1 tablet, Chew, Daily, # 90 tablet, 1 Refills, Maintenance, 11/03/19 12:31:00 EDT, Chew Tablet, [email or web address] #[id number], 1 tablet Chew Daily,x90 days, 157, cm, 07/31/19 8:49:00 EST, Height, 84.5,kg, 04/29/19 4:40:00 EDT, Dry Weight Start Date: 11/03/19 Stop Date: 05/01/20 Status: Ordered Ortho Micronor 0.35 mg oral [...] 12:31:00 EDT, Aerosol, Route to Pharmacy Electronically, [id number], [email or web address] #[id number], 157, cm, 07/31/19 8:49:00... Start Date: 11/03/19 Status: Ordered riboflavin 400 mg oral capsule 1 capsule = 400 mg, By Mouth, Daily, # 30 capsule, 3 Refills, Maintenance, 11/03/19 11:58:00 EDT, [email or web address] #[id number], 157, cm, 07/31/19 8:49:00 EST, Height, 84.5, kg, 04/29/19 4:40:00 EDT, Dry Weight Start Date: 11/03/19 Status: Ordered Slow Fe (as elemental iron) [...] # 18 tablet, 1 Refills, Soft Stop, [facility] #[id number], 157, cm, 07/31/19 8:49:00 EST, Height, 84.5, [...]
--- OUTSIDE RECORDS SUMMARY | 2023-11-16 17:17 | XMS_ITS | Continuity of Care Document ---
Author Organization [facility] ter Address [address] [place] [id number]- Care Team Providers Care Batt Machine Operator Name Role Phone Lorraine Zendejas MD Primary Care Physician Encounter [facility] Date(s): 04/03/23 - 04/03/[address] [address]- Discharge Disposition: A-D/C Home Attending Physician: Jose De Jesus Stewart MD Admitting Physician: Jose De Jesus Stewart MD Referring Physician: Not on Staff, Referring [...] 08/15/22 15:08:00 EST, Route to Pharmacy Electronically, [facility] #[id number], Partial fill upon patient request if the prescription... Start Date: 08/15/22 Status: Ordered Acetaminophen Tablet 975 mg, Tablet, By Mouth, Once, STAT, 04/03/23 16:05:00 EDT, Stop date 04/03/23 16:05:00 EDT Start Date: 04/03/23 Stop Date: 04/03/23 Status: Completed Advair HFA 115 mcg / 21 mcg 2 puffs, Inhalation, 2 times a day, # 1 each, 5 Refills, Maintenance, 05/03/22 16:02:00 EDT, Aerosol, [facility] #[id number], Partial fill upon patient request if the prescription is for a schedule II opioid drug., 2 puffs Inhalation 2 times a da... Start Date: 05/03/22 Stop Date: 10/30/22 Status: Ordered albuterol 0.083% inhalation solution 3 mL = 2.5 mg, Inhalation, Every 6 hours, PRN Wheezing/Shortness of Breath, # 60 each, 1 Refills, Maintenance, 11/09/22 13:41:00 EDT, Solution, [facility] #[id number], Partial fill upon patient request if the prescription is for a schedule II opi... Start Date: 11/09/22 Status: Ordered albuterol CFC free 90 mcg/inh inhalation aerosol 2, puffs, Inhalation, Every 6 hours, PRN, for 30 days, # 8.5 Gm, Refills 11, Tot. Refills 11, Hard Stop 04/28/23 11:45:00 EDT, 05/03/22 11:45:00 EDT, Aerosol, Route to Pharmacy Electronically, [id number], [facility]... Start Date: 05/03/22 Stop Date: 04/28/23 Status: Ordered cetirizine 5 mg oral tablet = 5 mg, By Mouth, Daily, # 30 tablet, 0 Refills, Maintenance, 11/17/22 10:48:00 EDT, Tablet, [facility] #[id number], Partial fill upon patient request if the prescription is for a schedule II opioid drug., 156, cm, 11/17/22 8:44:00 EDT, Height, 8... Start Date: 11/17/22 Status: Ordered Depakote 250 mg oral enteric coated tablet 1 tablet = 250 mg, By Mouth, 2 times a day, # 60 tablet, 3 Refills, Maintenance, 02/28/23 16:39:00 EDT, [facility] #[id number], Partial fill upon patient request if the prescription is for a schedule II opioid drug., 155, cm, 02/28/23 11:38:00 ED... Start Date: 02/28/23 Status: Ordered ibuprofen 400 mg oral tablet 400 mg, 1, tablet, By Mouth, Every 4 hours, PRN, # 60 tablet, Refills 0, Tot. Refills 0, Maintenance, for pain, 11/17/22 10:49:00 EDT, Route to Pharmacy Electronically, [facility] #[id number], Partial fill upon patient request if the prescription... Start Date: 11/17/22 Status: Ordered lidocaine 1.8% topical film 1 patch, Topically, Daily, leave on up to 12 hours, # 30 each, 0 Refills, Maintenance, 11/17/22 10:47:00 EDT, Film, [facility] #[id number], Partial fill upon patient request if the prescription is for a schedule II opioid drug., 1 patch Topically... Start Date: 11/17/22 Status: Ordered metroNIDAZOLE 0.75% topical gel 1 application, Topically, Daily at bedtime, use vaginal applicator to insert vaginally nightly for 5 nights, # 45 Gm, 0 Refills, Maintenance, 02/14/23 16:28:00 EDT, Gel, [facility] #[id number], Partial fill upon patient request if the prescriptio... Start Date: 02/14/23 Stop Date: 02/19/23 Status: Ordered metroNIDAZOLE 500 mg oral tablet 1 tablet = 500 mg, By Mouth, Every 12 hours, # 28 tablet, 0 Refills, Maintenance, 01/25/23 16:14:00EDT, Tablet, [facility] #[id number], Partial fill upon patient request if the prescription is for a schedule II opioid drug., 156, cm, 01/25/23 15... Start Date: 01/25/23 Stop Date: 02/08/23 Status: Ordered MiraLax oral powder for reconstitution = 17 Gm, By Mouth, Daily, dissolve in water before taking, # 527 Gm, 0 Refills, Maintenance, 11/17/22 10:47:00 EDT, REC Powder, [facility] #[id number], Partial fill upon patient request if the prescription is for a schedule II opioid drug., 17 Gm... Start Date: 11/17/22 Status: Ordered morphine 15 mg oral tablet, immediate release 1 tablet = 15 mg, By Mouth, Every 4 hours, PRN as needed for pain, # 10 tablet, 0 Refills, Maintenance, 04/03/23 19:18:00 EDT, Tablet, [facility] #[id number], Partial fill upon patient request if the prescription is for a schedule II opioid drug.... Start Date: 04/03/23 Status: Ordered ondansetron 4 mg oral tablet, disintegrating 1 tablet = 4 mg, By Mouth, Every 8 hours, PRN as needed for nausea/vomiting, # 10 tablet, 0 Refills, Maintenance, 04/03/23 19:22:00 EDT, DIS Tablet, [facility] #[id number], Partial fill upon patient request if the prescription is for a schedule I... Start Date: 04/03/23 Status: Ordered Spacer for asthma Spacer for [...] Refills, Soft Stop, 01/25/23 10:30:00 EDT, Tablet, [facility] #0... Start Date: 01/25/23 Status: Ordered Toradol Inj 15 mg, Injection, IV Push Slowly, Once, STAT, 04/03/23 16:05:00 EDT, Stop date 04/03/23 16:05:00 EDT Start Date: 04/03/23 Stop Date: 04/03/23 Status: Completed Problem List Condition Confirmation Course Effective Dates Status Health St atus Informant Anemia Confirmed Active Asthma Confirmed Active COVID-19 1 Confirmed 08/15/22 Active COVID Confirmed Active Depression Confirmed Active Headache Confirmed Active History of pre-eclampsia Confirmed Active Obese class II Confirmed Active Uterine scar from previous delivery Confirmed Active 1Problem added by Discern Expert Results Radiology Reports * Exam Date Time Procedure Performing Provider Status 04/03/23 2:18 PM US Pelvic Doppler Comp RodriguezKalina bird; Modified Notes: (US Pelvic Doppler Comp) Reason For Exam: Lost IUD RESULT: US Pelvic Doppler Comp US Pelvic Transvaginal, US Pelvic Doppler Comp Hx of Present Illness: : mco abd cramping constipation irregular periods (IUD) symptoms x 2 wks; Reason: Lost IUD; Clinical Question(s): IUD Location; IUQ misalignment; Order Comment: COMPARISON: CT of abdomen and pelvis from earlier today. TECHNIQUE: Transvaginal pelvic ultrasound with grayscale, color Doppler, and spectral Doppler analysis. FINDINGS: UTERUS: Size: 11.4 x 5.6 x 5.6 cm, volume 210 cc. Endometrial thickness: 0.6 cm. Morphology: It is retroflexed. The IUD was difficult to see, best seen on image 500. Its body points to the right and the T arm oriented sideways. RIGHT OVARY: Size: 3.7 x 2.6 x 2.4 cm, volume 11.9 cc. Morphology: Normal echotexture. A luteal cyst is suggested 1.9 x 1.8 x 1.2 cm.. Normal arterial andvenous waveforms. LEFT OVARY: Size: 2.9 x 2.1 x 1.4 cm, volume 4.4 cc. Morphology: Normal echotexture. No pathologic cysts or mass. Normal arterial and venous waveforms. ADNEXA: Normal. No adnexal masses or fluid collections. IMPRESSION: The IUD was difficult to see, malpositioned as above. No evidence of testicular torsion. WSN: [id number] Ordering Physician: Magaly Piper Dictated By: Jennifer Astudillo MD Dictated Date/Time: 04/03/23 3:44 pm Reviewed By: Jennifer Astudillo MD Signed By: Jennifer Astudillo MD Signed Date/Time: 04/03/23 3:44 pm Transcribed By: CHARLIE Transcribed Date/Time: 04/03/23 3:39 pm ADDENDUM: US Pelvic Doppler Comp There was a mistake in the original dictation. The impression should read: No evidence of ovarian torsion. WSN: [id number] Ordering Physician: Magaly Piper Dictated By: Jennifer Astudillo MD Dictated Date/Time: 04/03/23 5:31 pm Reviewed By: Jennifer Astudillo MD Signed By: Jennifer Astudillo MD Signed Date/Time: 04/03/23 5:31 pm Transcribed By: CHARLIE Transcribed Date/Time: 04/03/23 5:30 pm * Exam Date Time Procedure Performing Provider Status 04/03/23 2:18 PM US Pelvic Transvaginal Kalina Rodriguez; Modified Notes: (US Pelvic Transvaginal) Reason For Exam: Lost IUD RESULT: US Pelvic Transvaginal US Pelvic Transvaginal, US Pelvic Doppler Comp Hx of Present Illness: : mco abd cramping constipation irregular periods (IUD) symptoms x 2 wks; Reason: Lost IUD; Clinical Question(s): IUD Location; IUQ misalignment; Order Comment: COMPARISON: CT of abdomen and pelvis from earlier today. TECHNIQUE: Transvaginal pelvic ultrasound with grayscale, color Doppler, and spectral Doppler analysis. FINDINGS: UTERUS: Size: 11.4 x 5.6 x 5.6 cm, volume 210 cc. Endometrial thickness: 0.6 cm. Morphology: It is retroflexed. The IUD was difficult to see, best seen on image 500. Its body points to the right and the T arm oriented sideways. RIGHT OVARY: Size: 3.7 x 2.6 x 2.4 cm, volume 11.9 cc. Morphology: Normal echotexture. A luteal cyst is suggested 1.9 x 1.8 x 1.2 cm.. Normal arterial andvenous waveforms. LEFT OVARY: Size: 2.9 x 2.1 x 1.4 cm, volume 4.4 cc. Morphology: Normal echotexture. No pathologic cysts or mass. Normal arterial and venous waveforms. ADNEXA: Normal. No adnexal masses or fluid collections. IMPRESSION: The IUD was difficult to see, malpositioned as above. No evidence of testicular torsion. WSN: [id number] Ordering Physician: Magaly Piper Dictated By: Jennifer Astudillo MD Dictated Date/Time: 04/03/23 3:44 pm Reviewed By: Jennifer Astudillo MD Signed By: Jennifer Astudillo MD Signed Date/Time: 04/03/23 3:44 pm Transcribed By: CHARLIE Transcribed Date/Time: 04/03/23 3:39 pm ADDENDUM: US Pelvic Transvaginal There was a mistake in the original dictation. The impression should read: No evidence of ovarian torsion. WSN: [id number] Ordering Physician: Magaly Piper Dictated By: Jennifer Astudillo MD Dictated Date/Time: 04/03/23 5:31 pm Reviewed By: Jennifer Astudillo MD Signed By: Jennifer Astudillo MD Signed Date/Time: 04/03/23 5:31 pm Transcribed By: CHARLIE Transcribed Date/Time: 04/03/23 5:30 pm * Exam Date Time Procedure Performing Provider Status 04/03/23 12:[address] Abd/Pelvis W/ IV Contrast Only Shannon Richardson; Auth (Verified) Notes: (CT Abd/Pelvis W/ IV Contrast Only) Reason For Exam: LLQ abdominal pain;Other: RESULT: CT Abd/Pelvis W/ IV Contrast Only CT Abd/Pelvis W/ IV Contrast Only Hx of Present Illness: : mco abd cramping constipation irregular periods (IUD) symptoms x 2 wks; Reason: Other:; LLQ abdominal pain; Clinical Question(s): Diverticulitis; Order Comment: TECHNIQUE: Spiral CT through the abdomen and pelvis with IV contrast formatted in 3 planes. 100 cc of Omnipaque 300 was administered intravenously. This study was performed without oral contrast. Weight-based protocol using automatic tube modulation was used to optimize exposure parameters. CTDIvol Body: 15.40 mGy, DLP Body: 855 mGy*cm. COMPARISON: None. FINDINGS: Institutional Nutrition Consultant View Findings, Lines and Tubes: None. Visualized Chest: Lung bases are clear. No pleural effusion. The heart is normal in size. No pericardial effusion. Diaphragm: Normal. Liver: Diffuse low-attenuation throughout the liver parenchyma consistent with hepatic steatosis. No evidence of mass. Gallbladder: No CT evidence of gallbladder pathology. Normal. Bile ducts: No biliary ductal dilation. Spleen: Normal. Pancreas: Normal. Adrenal glands: Normal. Kidneys and ureters: No hydronephrosis, stones, or suspicious masses. Bladder: Normal. Reproductive organs: Abnormally rotated IUD in the endometrial canal. No adnexal mass. Prominent parametrial vessels noted. Stomach, small bowel, and large bowel: Normal caliber. No bowel obstruction. Decompressed colon with questionable mild diffuse colonic wall thickening versus pseudothickening due to poor distention. Minimal fluid/debris within the rectosigmoid colon and in the cecum. No evidence of acute diverticulitis. Appendix: Normal. Peritoneum and retroperitoneum: No ascites or pneumoperitoneum. No omental or mesenteric lesions. Lymph nodes: No enlarged lymph nodes. Blood vessels: Normal. No aneurysm. No evidence of venous thrombosis. Abdominal and pelvic wall: Unremarkable. Bones: No acute abnormality. No suspicious bone abnormality. IMPRESSION: 1. Malpositioned/abnormally rotated IUD in the endometrium. Recommend clinical follow-up with FIELD RADIO OPERATOR. 2. Questionable mild diffuse colonic wall thickening can be seen with mild colitis. No surrounding inflammatory changes. No evidence of acute diverticulitis. WSN: [id number] Ordering Physician: Magaly Piper Dictated By: Michelle James MD Dictated Date/Time: 04/03/23 12:22 p Reviewed By: Michelle James MD Signed By: Michelle James MD Signed Date/Time: 04/03/23 12:22 pm Transcribed By: CHARLIE Transcribed Date/Time: 04/03/23 12:12 pm Vital Signs Most recent to oldest [Reference Range]: 1 2 3 Height 158 cm (04/03/23 8:07 AM) Oxygen Saturation [94-100 %] 98 % (04/03/23 7:43 PM) 97 % (04/03/23 4:06 PM) 100 % (04/03/23 12:26 PM) Pulse Rate [55-90 bpm] 80 bpm (04/03/23 7:43 PM) 82 bpm (04/03/23 4:06 PM) 86 bpm (04/03/23 12:26 PM) Blood Pressure [90-138/55-84 mm Hg] 116/65mm Hg (04/03/23 7:43 PM) 120/69mm Hg (04/03/23 4:06 PM) 120/57mm Hg (04/03/23 12:26 PM) Respiratory Rate [16-30 br/min] 18 br/min (04/03/23 7:43 PM) 18 br/min (04/03/23 5:10 PM) 18 br/min (04/03/23 4:40 PM) Temperature [96.8-100.4 DegF] 98.4 DegF (04/03/23 8:07 AM) Mode of Delivery (Oxygen) Room air (04/03/23 7:43 PM) Room air (04/03/23 4:06 PM) Room air (04/03/23 12:26 PM) Blood pressure sites Arm, left (04/03/23 7:43 PM) Arm, left (04/03/23 4:06 PM) Arm, left (04/03/23 12:26 PM) Temperature Route Oral (04/03/23 8:07 AM) Dry Weight 84 kg (04/03/23 8:07 AM) Dry Weight Obtained Via Patient/family s tated (04/03/23 8:07 AM) Social History Social History Type Response Smoking Status Never (less than 100 in lifetime) entered on: 02/15/22 Sex Female Consult note * Jerry Cruz DO: PERFORM Event Display: Consultation Note Authored Date: [id number] Patient: ??SANDY HAYDEN ? Age:??28 Years?Sex:??Female?:??1995?? History of Present Illness Patient is a 28-year-old??that presents to the emergency room for complaints of abdominal pain.?? She gynecology was consulted due to CT and transvaginal ultrasound demonstrating evidence of malpositioned IUD.?? Patient states that she has been having pain for approximately 2 weeks and the persistence of it is what prompted her evaluation in the emergency room.?? She states that??her pain is mostly localized periumbilical??with some radiation inferiorly.?? She does report a history of constipation but denies any change in her bowel habits recently.?? She denies any heavy vaginal bleeding, dysuria, hematuria, nausea, vomiting.?? She states that she had problems with her IUD in the past and at tributes this pain to her IUD. ??She expresses a strong desire to have it removed. Review of Systems Constitutional, Eye, Skin, Head/Neck, ENMT, Respiratory, Cardio, Gastrointestinal, Breast, Gynecologic, Genitourinary, Endocrine, Musculoskeletal, Immunologic, Hematologic, Lymphatic, Neurologic, Psych reviewed and negative except as noted in HPI. Physical Exam Vitals & Measurements T:??98.4?F?? HR:??82??(Peripheral)?? RR:??18?? BP:??120/69?? SpO2:??97%?? HT:??158??cm?? General: pleasant, alert, cooperative, NAD HEENT: Normocephalic/atraumatic Cardiac: Regular rate Respiratory: unlabored breathing Abdominal: Soft, non-distended. No guarding or rebound. Neurologic: No focal neurological deficits.??Moves all extremities spontaneously. Extremities: Symmetrical muscle bulk, no visible erythema or edema.?? Psych: Mood and affect stable, appearance appropriate, good eye contact, talkative ?? Map Maker: Normal-appearing external genitalia, vagina, cervix. ??No strings visualized from??cervix and inability to manipulate strings. Assessment/Plan Assessment:??Patient is a 28-year-old that presents to the emergency room for complaints of abdominal pain.?Patient's??CT scan is notable for a malpositioned IUD as well as evidence??of colonic wall inflammation suggestive of possible colitis.??Additionally her transvaginal ultrasound??reiterates the??findings of a malpositioned IUD??and does not show any evidence of ovarian torsion.??Discussed with patient that??IUD??being malpositioned can contribute to discomfort however, would not suspect the degree of discomfort which she is feeling to be related to her IUD especially with the localization to the periumbilical region;??suspect it is more likely related to??potential colitis.??Physical exam??performed and unable to visualize??IUD strings.??Given this inability??to see the strings, recommend??outpatient follow-up in family- planning clinic for challenging IUD removal.??Patient was in agreement with plan. Message sent to clinic for scheduling. ?? OB History History?(3,0,0,3)? # 1 ?Baby 1 ?Outcome Date:??07/20/2017?Outcome or Result:??Vaginal ?Gest Age:??38 weeks 1 days ? Outcome:??Live ? Sex:??-- ?Comment:??severe pre e ?? # 2 ?Baby 1 ?Outcome Date:??04/29/2019?Outcome or Result:??, low transverse ?Gest Age:??38 weeks 4 days ? Outcome:??Live ? Sex:??Male?Wt:?3438 g ? Complications:??None ?? # 3 ?Baby 1 ?Outcome Date:??03/15/2022?Outcome or Result:??, low transverse ?Gest Age:??38 weeks 3 days ? Outcome:??Live ? Sex:??Male?Wt:?3485 g ? Complications:??None Problem List/Past Medical History Ongoing Anemia Asthma COVID COVID-19 Depression Headache History of pre-eclampsia Obese class II Uterine scar from previous delivery Procedure/Surgical History delivery only;: 03/15/22 delivery only;: 04/29/19 Endoscopy: 2016 Colonoscopy: 2016 Home Medications Acetaminophen: 650 mg = 2 tablet, By Mouth, Every 4 hours, PRN (for pain) Albuterol: 2 puffs, Inhalation, Every 6 hours, PRN (as needed for wheezing) Albuterol: 2.5 mg = 3 mL, Inhalation, Every 6 hours, PRN (Wheezing/Shortness of Breath) Cetirizine: 5 mg, By Mouth, Daily Divalproex Sodium: 250 mg = 1 tablet, By Mouth, 2 times a day Durable Medical Equipment (Spacer for asthma): See Instructions, Spacer for asthma inhaler. Fluticasone-Salmeterol: 2 puffs, Inhalation, 2 times a day Ibuprofen: 400 mg = 1 tablet, By Mouth, Every 4 hours, PRN (for pain) Lidocaine Topical: 1 patch, Topically, Daily, leave on up to 12 hours Metronidazole: 500 mg = 1 tablet, By Mouth, Every 12 hours Metronidazole Topical: 1 application, Topically, Daily at bedtime, use vaginal applicator to insertvaginally nightly for 5 nights Polyethylene Glycol 3350: 17 Gm, By Mouth, Daily, dissolve in water before taking Sumatriptan: 100 mg = 1 tablet, By Mouth, Once, PRN (for migraine headache), may repeat dose once in 2 hours. ??No more than 2 doses in 24 hours. ??No more than 3 times per week. Allergies sulfADIAZINE oxyCODONE Social History Alcohol Use: Never. Alcohol use in household: No. Electronic Cigarette/Vaping Electronic Cigarette Use: Never. Employment/School Status: Employed. Exercise Self assessment: Fair condition. Regular exercise: Yes. Exercise type: Walking. Home/Environment Living situation: Home/Independent. Lives with: Children, Spouse. DCF involvement: Current. MaritalStatus of Patient if Patient Independent Adult: Unmarried. Spouse Name: Jani. Feels unsafe at home: No. Domestic violence in household: No. Firearms in household: No. Nutrition/Health Diet: Regular. Sexual Sexually involved in last 6 months: Yes. Gender identity: Identifies as female. Self described orientation: Straight or heterosexual. Preferred pronoun: She/her. Substance Abuse Use: Never. Substance abuse in household: No. Tobacco Use: Never (less than 100 in lifetime). Family History Mother: Anemia ?11-OCT-2013 07:24:12<$>; Anxiety; Bipolar; Dementia; Depression; Liver disease ? 11-OCT-2013 07:29:58<$>; Thyroid Father: Anemia ?11-OCT-2013 07:24:12<$>; Hypoglycemia; Liver disease; Lung disorder; Migraines ? 11-OCT-2013 07:24:12<$> Son: Asthma Note * Selina Joyner MD: PERFORM Event Display: Patient Education Leaflets Authored Date: [id number] Unknown Causes of Abdominal Pain (Adult) ?? [id number] Unknown Causes of Abdominal Pain (Adult) The exact cause of your belly (abdominal) pain is not clear. Your exam and tests don't suggest a dangerous cause at this time. This does not mean that this is something to worry about. Everyone likesto know the exact cause of the problem. But sometimes with belly pain, there is no clear-cut cause,and this could be a good thing. Your symptoms can be treated, and you should feel better.?? Your condition does not seem serious now. But sometimes the signs of a serious problem may take more time to appear. For this reason,??it's important for you to watch for any new symptoms, problems,??or worsening of your condition. Over the next few days, the abdominal pain may come and go. Or it may be constant. Other common symptoms can include nausea and vomiting. Sometimes it can be difficult to tell if you feel nauseous. You may just feel bad and not connect that feeling to nausea. Constipation, diarrhea, and a fever maygo along with the pain. The pain may continue even if treated correctly over the following days. Depending on how things go, sometimes the cause can become clear and you may need more??or different treatment. You may also need other evaluations, medicines, or tests. Home care Your healthcare provider may prescribe medicine for pain, symptoms, or an infection. ??Follow the healthcare provider's instructions for taking these medicines. General care ??? Rest as much as you can until your next exam. No strenuous activities. ??? Try to not do anything that may have caused your symptoms. This might be not taking any medicines unless otherwise directed by your healthcare provider. It might be not eating certain foods or doing certain activities. ??? Find positions that ease discomfort. A small pillow placed on your belly may help relieve pain. ??? Something warm on your belly such as a heating pad may help, but be careful not to burn yourself. Diet ??? Don???t??force yourself to eat, especially if having cramps, vomiting, or diarrhea. ??? Water is important so you don't get dehydrated. Soup may also be good. Sports drinks may also help, especially if they are not too acidic. Don't drink sugary drinks as this can make things worse. Take liquids in small amounts. Don???t??guzzle them. ??? Caffeine sometimes makes the pain and cramping worse. ??? Don???t take??dairy products if you have vomiting or diarrhea. ??? Don't eat large amounts at a time. Eat several small meals during the day instead of 2 or 3 larger meals. Wait a few minutesbetween bites. ??? Eat a diet low in fiber (called a low-residue diet). Foods allowed include refined breads, white rice, fruit and vegetable juices without pulp, tender meats. These foods will pass more easily through the intestine. ??? Don???t have??whole-grain foods, whole fruits and vegetables,meats, seeds and nuts, fried or fatty foods, dairy, alcohol and spicy foods until your symptoms go away. ?? Follow-up care Follow up with your healthcare provider, or as advised, if your pain does not begin to improve in the next 24 hours. ?? Call 911 Call?? 911 if any of these occur: ??? Trouble breathing ??? Confusion ??? Fainting or loss of consciousness ??? Rapid heart rate ??? Seizure ?? When to seek medical advice Call your healthcare provider right away if any of these occur: ??? Pain gets worse or moves to theright lower abdomen ??? New or worsening vomiting or diarrhea ??? Swelling of the abdomen ??? Unable to pass stool for more than??3 days ??? Fever of 100.4??F (38??C) or higher, or as directed by your healthcare provider ??? Blood in vomit or bowel movements (dark red or black color) ??? Yellow color of eyes and skin (jaundice) ??? Weakness, dizziness ??? Chest, arm, back, neck, or jaw pain ??? Can't keep down medicines, liquids, or water because of too much vomiting ??? If you have a vagina: unexpected vaginal bleeding or missed period ?? Last Reviewed Date: 2021 ?? [id number] [employer]. All rights reserved. This information is not intended as a substitute for professional medical care. Always follow your healthcare professional's instructions. ?? Patient Care team information Care Team Personnel Name: Vivi Bailey NP Position: [facility] Associate Professional Member Role: [employer] Consult[employer] Provider Address: Address: [address] [place] [address]- [place] Name: Gauri Pascual Position: [facility] RN Member Role: Primary Care Nurse Name: Lorraine Zendejas MD Position: [facility] Physician - Primary Care Member Role: PCP Address: Address: [address] [place] [phone]- [place] Name: Shaheed Sr Position: [facility] ED TA [facility] Name: Magaly Collins Position: [facility] Associate Professional Member Role: ED Physician Minilab Operator Address: Address: [address] [place] [phone]- [place] Name: Jose De Jesus Stewart MD Position: [facility] ED Medicine MD Member Role: Admitting Physician Address: Address: [address] [place] [address]- [place] Name: Selina Joyner MD Position: [facility] Resident Member Role: ED Resident Address: Address: [address] [place] [address]- [place] Name: Juana Jones RN Position: [facility] ED RN W/OE and Tasks Member Role: Patient Care Provider Care Team Related Persons Name: KENDAL PHELPS Address: home [address] [place] [address] Name: LENIN RELL Address: [address] [address] Name: RUSLAN ABREU Address: [address] Address: home [address] [place] [address] [place] Name: NAY DEL ANGEL Address: home [address] [place] [address] Name: PRAVIN PARKER Address: home [address] [place] [address] Name: ADITHYA HAYDEN Address: [id number] Address: [address] [address] [place] Name: PRAVIN HAYDEN Address: home [address] [place] [address]
--- OUTSIDE RECORDS SUMMARY | 2023-11-16 17:17 | XMS_ITS | Continuity of Care Document ---
Author Organization [facility] Address [address] [facility], 3r d Floor, [address] [place] [address]- Care Team Providers Care Engineering Vice President Name Role Phone Lorraine Zendejas MD Primary Care Physician [phone] [place]counter [facility] [place]): 05/11/23 - 09/08/23 [facility] [address], 3[address] Floor, [address] [place] [address] Attending Physician: Jan Luciano MD Admitting Physician: Jan Luciano MD Allergies, Adverse Reactions, Alerts Substance Reaction [...] 08/15/22 15:08:00 EST, Route to Pharmacy Electronically, [facility] #[id number], Partial fill upon patient request if the prescription... Start Date: 08/15/22 Status: Ordered Advair HFA 115 mcg / 21 mcg 2 puffs, Inhalation, 2 times a day, # 1 each, 5 Refills, Maintenance, 05/03/22 16:02:00 EDT, Aerosol, [facility] #[id number], Partial fill upon patient request if the prescription is for a schedule II opioid drug., 2 puffs Inhalation 2 times a da... Start Date: 05/03/22 Stop Date: 10/30/22 Status: Ordered albuterol 0.083% inhalation solution 3 mL = 2.5 mg, Inhalation, Every 6 hours, PRN for wheezing, # 25 each, 0 Refills, Maintenance, 05/29/23 20:07:00 EDT, Solution, [facility] #[id number], Partial fill upon patient request if the prescription is for a schedule II opioid drug., 156,... Start Date: 05/29/23 Status: Ordered aluminum hydroxide/magnesium hydroxide/simethicone 200 mg-200 mg-20 mg/5 mL oral suspension 10 mL, By Mouth, 4 times a day, PRN for control of stomach acid, for 7 days, # 180 mL, 0 Refills, Acute 09/10/23 15:29:00 EST, 09/03/23 15:29:00 EST, Suspension, [facility] #[id number], Partial fill upon patient request if the prescription is for... Start Date: 09/03/23 Stop Date: 09/10/23 Status: Ordered cetirizine 5 mg oral tablet = 5 mg, By Mouth, Daily, # 30 tablet, 0 Refills, Maintenance, 11/17/22 10:48:00 EDT, Tablet, [facility] #[id number], Partial fill upon patient request if the prescription is for a schedule II opioid drug., 156, cm, 11/17/22 8:44:00 EDT, Height, 8... Start Date: 11/17/22 Status: Ordered Depakote 250 mg oral enteric coated tablet 1 tablet = 250 mg, By Mouth, 2 times a day, # 60 tablet, 3 Refills, Maintenance, 02/28/23 16:39:00 EDT, [facility] #[id number], Partial fill upon patient request if the prescription is for a schedule II opioid drug., 155, cm, 02/28/23 11:38:00 ED... Start Date: 02/28/23 Status: Ordered dicyclomine 20 mg oral tablet 1 tablet = 20 mg, By Mouth, 4 times a day, 30 to 60 minutes before meals, # 28 tablet, 4 Refills, Maintenance, 04/05/23 11:18:00 EDT, Tablet, [facility] #[id number], Partial fill upon patient request if the prescription is for a schedule II opioi... Start Date: 04/05/23 Stop Date: 05/10/23 Status: Ordered ibuprofen 400 mg oral tablet 400 mg, 1, tablet, By Mouth, Every 4 hours, PRN, # 60 tablet, Refills 0, Tot. Refills 0, Maintenance, for pain, 11/17/22 10:49:00 EDT, Route to Pharmacy Electronically, [facility] #[id number], Partial fill upon patient request if the prescription... Start Date: 11/17/22 Status: Ordered MiraLax oral powder for reconstitution = 17 Gm, By Mouth, Daily, dissolve in water before taking, # 527 Gm, 0 Refills, Maintenance, 11/17/22 10:47:00 EDT, REC Powder, [facility] #[id number], Partial fill upon patient request if the prescription is for a schedule II opioid drug., 17 Gm... Start Date: 11/17/22 Status: Ordered Nexplanon 68 mg subcutaneous implant 1 each = 68 mg, Subcutaneous Infusion, Once, Left arm, placed 07/23/2023 Lot #[id number], # 1 each, 0 Refills, Maintenance, 07/23/23 16:11:00 EST, Partial fill upon patient request if the prescription is for a schedule II opioid drug. Start Date: 07/23/23 Status: Ordered Spacer for asthma Spacer for [...] Refills, Soft Stop, 01/25/23 10:30:00 EDT, Tablet, [facility] #0... Start Date: 01/25/23 Status: [...] Team Personnel Name: Vivi Bailey NP Position: [facility] PCO Associate Professional Member Role: Lifetime Consulting Provider Address: Address: [address] [place] [address]- Name: Gauri Pascual Position: [facility] RN Member Role: Primary Care Nurse Name: Lorraine Zendejas MD Position: [facility] Physician - Primary Care Member Role: PCP Address: Address: [address] [place] [address]- Care Team Related Persons Name: KENDAL PHELPS Address: home [address] [place] [address] Name: RELL PHELPS Address: [address] [address] Name: RUSLAN ABREU Address: [address] Address: [address] [place] [address] [place] Name: NAY DEL ANGEL Address: [address] [place] [address] Name: PRAVIN PARKER Address: [address] [place] [address] Name: ADITHYA HAYDEN Address: [address] Address: [address] [place] [address] [place] Name: PRAVIN HAYDEN Address: [address] [place] [address]
--- OUTSIDE RECORDS SUMMARY | 2023-11-16 17:17 | XMS_ITS | Continuity of Care Document ---
Author Organization [facility] Address [address] [place] [address]- Care Team Providers Care Swimming Pool Installer And Servicer Name Role Phone Aashish IBARRA, Lorraine Primary Care Physician Encounter [facility] Date(s): 03/21/22 - 04/20/22 [facility] [address] [address]- Allergies, Adverse Reactions, Alerts Substance Reaction Severity [...] 0 Refills, Maintenance, 03/18/22 15:18:00 EDT, Capsule, [facility] #[id number], Partial fill upon patient request if the prescription is for a schedule II opioid . Start Date: 03/18/22 Status: Ordered Advair HFA 115 mcg / 21 mcg 2 puffs, Inhalation, 2 times a day, # 60 each, 5 Refills, Maintenance, 11/25/21 15:15:00 EDT, Aerosol, [facility] #[id number], Partial fill upon patient request if the prescription is for a schedule II opioid drug., 2 puffs Inhalation 2 times a d... Start Date: 11/25/21 Status: Ordered Aspirin Low Dose 81 mg oral delayed release tablet 2 tablet, By Mouth, Daily, START AT 12 WEEKS, 09/11/21, # 90 tablet, 3 Refills, [facility] #[id number], 154, cm, 01/04/22 13:56:00 EDT, Height, 86.5, kg, 10/29/21 21:50:00 EDT, Dry Weight Start Date: 01/05/22 Status: Ordered cephalexin monohydrate 500 mg oral capsule 1 capsule = 500 mg, By Mouth, 4 times a day, for 10 days, # 40 capsule, 0 Refills, Acute 04/21/22 4:40:00 EDT, 04/11/22 4:40:00 EDT, Capsule, [facility] #[id number], Partial fill upon patient request if the prescription is for a schedule II opioi... Start Date: 04/11/22 Stop Date: 04/21/22 Status: Ordered clotrimazole 1% topical cream 1 application, Topically, 2 times a day, # 12 Gm, 0 Refills, Maintenance, 04/11/22 4:42:00 EDT, Cream, [facility] #[id number], Partial fill upon patient request if the prescription is for a schedule II opioid drug., 1 application Topically 2 time... Start Date: 04/11/22 Status: Ordered Colace sodium 100 mg oral capsule 100 mg, 1, capsule, By Mouth, 2 times a day, PRN, # 20 capsule, Refills 0, Tot. Refills 0, Maintenance, for constipation, 03/18/22 15:18:00 EDT, Route to Pharmacy Electronically, [facility]#[id number], Partial fill upon patient request if the pr... Start Date: 03/18/22 Status: Ordered Dilaudid 2 mg oral tablet 1 tablet = 2 mg, By Mouth, Every 4 hours, # 10 tablet, 0 Refills, Maintenance, 03/18/22 18:17:00 EDT, Tablet, [facility] #[id number], Partial fill upon patient request if the prescription is fora schedule II opioid drug., 154, cm, 03/18/22 11:26... Start Date: 03/18/22 Status: Ordered ferrous sulfate 325 mg oral tablet 1 tablet = 325 mg, By Mouth, Daily, # 30 tablet, 3 Refills, Maintenance, 01/05/22 12:46:00 EDT, Tablet, [facility] #[id number], Partial fill upon patient request if the prescription is for a schedule II opioid drug., 154, cm, 01/04/22 13:56:00 ED... Start Date: 01/05/22 Status: Ordered ibuprofen 600 mg oral tablet 600 mg, 1, tablet, By Mouth, Every 6 hours, # 50 tablet, Refills 0, Tot. Refills 0, Maintenance, 03/18/22 15:18:00 EDT, Route to Pharmacy Electronically, [facility] #[id number], Partial fill upon patient request if the prescription is for a sched... Start Date: 03/18/22 Status: Ordered magnesium oxide 400 mg oral tablet 1 tablet = 400 mg, By Mouth, Daily, for 30 days, to treat and prevent headaches, # 30 tablet, 3 Refills, Acute 06/22/22 19:25:00 EST, 02/22/22 19:25:00 EDT, Tablet, [facility] #[id number], Partial fill upon patient request if the prescription is... Start Date: 02/22/22 Stop Date: 06/22/22 Status: Ordered MiraLax oral powder for reconstitution = 17 Gm, By Mouth, Daily, dissolve in water before taking, # 527 Gm, 0 Refills, Maintenance, 08/16/21 13:56:00 EST, REC Powder, [facility] #[id number], Partial fill upon patient request if the prescription is for a schedule II opioid drug., 17 Gm... Start Date: 08/16/21 Status: Ordered Multivitamins with Folic Acid 1 mg oral tablet 1 tablet, By Mouth, Daily, # 90 tablet, 3 Refills, Maintenance, 09/16/21 15:48:00 EST, Tablet, [facility] #[id number], Partial fill upon patient request if the prescription is for a schedule II opioid drug., 1 tablet By Mouth Daily, 157, cm, 0... Start Date: 09/16/21 Status: Ordered ProAir HFA 90 mcg/inh inhalation aerosol with adapter 2, puffs, Inhalation, Every 4 hours, PRN, # 8.5 Gm, Refills 2, Tot. Refills 2, Maintenance, 11/25/21 15:15:00 EDT, Aerosol, Route to Pharmacy Electronically, [id number], [facility] #[id number], 154, cm, 11/25/21 14:53:00... Start Date: 11/25/21 Status: Ordered simethicone 125 mg oral tablet, chewable 1 tablet = 125 mg, Chew, 4 times a day, # 48 tablet, 0 Refills, Maintenance, 03/18/22 15:18:00 EDT,Chew Tablet, [facility] #[id number], Partial fill upon patient request if the [...] 0 Refills, Maintenance, 03/18/22 15:18:00 EDT, Cream, [facility] #[id number], Partial fill upon patient request if the prescription is for a schedule II opioid drug., 1 application Topically 2 ti... Start Date: 03/18/22 Status: Ordered Problem List Condition Effective Dates Status Health Status Inform ant Anemia(Confirmed) Active Asthma(Confirmed) Active Depression(Confirmed) Active Headache(Confirmed) Active History of pre-eclampsia(Confirmed) Active Obese class II(Confirmed) Active Uterine scar from previous c esarean delivery(Confirmed) Active Social History Social History Type Response Smoking Status Never (less than 100 in lifetime) entered on: 02/15/22 Sex Care Team Personnel Name: Lorraine Zendejas MD Address: [address] [place] [address]
--- OUTSIDE RECORDS SUMMARY | 2023-11-16 17:17 | XMS_ITS | Continuity of Care Document ---
Author Organization [facility] Address [address] [place] [address]- Care Team Providers Care Termite Control Service Representative Name Role Phone Lorraine Zendejas MD Primary Care Physician [phone] [place] [facility] [place]/12/22 - 03/13/[address] [address] Discharge Disposition: A-D/C Home Attending Physician: Faith Terrazas CNM Admitting Physician: Faith Terrazas CNM Referring Physician: Faith Terrazas CNM Allergies, Adverse Reactions, Alerts Substance Reaction Severity [...] each, 5 Refills, Maintenance, 11/25/21 15:15:00 EDT, [facility] #[id number], Partial fill upon patient request if the prescription is for a schedule II opioid drug., 2 puffs Inhalation 2 times a d... Start Date: 11/25/21 Status: Ordered Aspirin Low Dose 81 mg oral delayed release tablet 2 tablet, By Mouth, Daily, START AT 12 WEEKS, 09/11/21, # 90 tablet, 3 Refills, [facility] #[id number], 154, cm, 01/04/22 13:56:00 EDT, Height, 86.5, kg, 10/29/21 21:50:00 EDT, Dry Weight Start Date: 01/05/22 Status: Ordered ferrous sulfate 325 mg oral tablet 1 tablet = 325 mg, By Mouth, Daily, # 30 tablet, 3 Refills, Maintenance, 01/05/22 12:46:00 EDT, Tablet, [facility] #[id number], Partial fill upon patient request if the prescription is for a schedule II opioid drug., 154, cm, 01/04/22 13:56:00 ED... Start Date: 01/05/22 Status: Ordered magnesium oxide 400 mg oral tablet 1 tablet = 400 mg, By Mouth, Daily, for 30 days, to treat and prevent headaches, # 30 tablet, 3 Refills, Acute 06/22/22 19:25:00 EST, 02/22/22 19:25:00 EDT, Tablet, [facility] #[id number], Partial fill upon patient request if the prescription is... Start Date: 02/22/22 Stop Date: 06/22/22 Status: Ordered MiraLax oral powder for reconstitution = 17 Gm, By Mouth, Daily, dissolve in water before taking, # 527 Gm, 0 Refills, Maintenance, 08/16/21 13:56:00 EST, REC Powder, [facility] #[id number], Partial fill upon patient request if the prescription is for a schedule II opioid drug., 17 Gm... Start Date: 08/16/21 Status: Ordered Multivitamins with Folic Acid 1 mg oral tablet 1 tablet, By Mouth, Daily, # 90 tablet, 3 Refills, Maintenance, 09/16/21 15:48:00 EST, Tablet, [facility] #[id number], Partial fill upon patient request if the prescription is for a schedule II opioid drug., 1 tablet By Mouth Daily, 157, cm, 0... Start Date: 09/16/21 Status: Ordered ProAir HFA 90 mcg/inh inhalation aerosol with adapter 2, puffs, Inhalation, Every 4 hours, PRN, # 8.5 Gm, Refills 2, Tot. Refills 2, Maintenance, 11/25/21 15:15:00 EDT, Aerosol, Route to Pharmacy Electronically, [id number], [facility][id number], 154, cm, 11/25/21 14:53:00... Start Date: 11/25/21 Status: Ordered Spacer for asthma Spacer for asthma, See Instructions, # 1 units, Refills 0, Tot. 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) Active Headache(Confirmed) Active History of pre-eclampsia(Confirmed) Active Obese class II(Confirmed) Active Pelvic pain in (Confirmed) Active Uterine scar from previous c esarean delivery(Confirmed) Active Vital Signs Most recent to oldest [Reference Range]: 1 2 Weight 93.1 kg (03/12/22 11:20 PM) 93.1 kg (03/12/22 11:19 PM) Oxygen Saturation [94-100 %] 98 % (03/12/22 11:15 PM) Blood Pressure [90-138/55-84 mm Hg] 128/ 75mm Hg (03/12/22 11:15 PM) Respiratory Rate [16-30 br/min] 19 br/mi n (03/12/22 11:15 PM) Temperature [96.8-100.4 DegF] 97.7 DegF (03/12/22 11:15 PM) Mode of Delivery (Oxygen) Room air (03/12/22 11:15 PM) Blood pressure sites Arm, left (03/12/22 11:15 PM) Temperature Route Oral (03/12/22 11:15 PM) Dry Weight 93.1 kg (03/12/22 11:20 PM) 93.1 kg (03/12/22 11:19 PM) Weight Obtained Via Standing scale (03/12/22 11:20 PM) Standing scale (03/12/22 11:19 PM) Social History Social History Type Response Smoking Status Never (less than 100 in lifetime) entered on: 02/15/22 Sex Female
--- OUTSIDE RECORDS SUMMARY | 2023-11-16 17:17 | XMS_ITS | Continuity of Care Document ---
Author Organization [facility] Address [address] [place] [address]- Care Team Providers Care Crisis Worker Name Role Phone Aashish IBARRA, Lorraine Primary Care Physician En[place] [facility] [place](s): 02/28/22 - 03/30/[address] [address] Allergies, Adverse Reactions, Alerts Substance Reaction Severity [...] 0 Refills, Maintenance, 03/18/22 15:18:00 EDT, Capsule, [facility] #[id number], Partial fill upon patient request if the prescription is for a schedule II opioid . Start Date: 03/18/22 Status: Ordered Advair HFA 115 mcg / 21 mcg 2 puffs, Inhalation, 2 times a day, # 60 each, 5 Refills, Maintenance, 11/25/21 15:15:00 EDT, Aerosol, [facility] #[id number], Partial fill upon patient request if the prescription is for a schedule II opioid drug., 2 puffs Inhalation 2 times a d... Start Date: 11/25/21 Status: Ordered Aspirin Low Dose 81 mg oral delayed release tablet 2 tablet, By Mouth, Daily, START AT 12 WEEKS, 09/11/21, # 90 tablet, 3 Refills, [facility] #[id number], 154, cm, 01/04/22 13:56:00 EDT, Height, 86.5, kg, 10/29/21 21:50:00 EDT, Dry Weight Start Date: 01/05/22 Status: Ordered Colace sodium 100 mg oral capsule 100 mg, 1, capsule, By Mouth, 2 times a day, PRN, # 20 capsule, Refills 0, Tot. Refills 0, Maintenance, for constipation, 03/18/22 15:18:00 EDT, Route to Pharmacy Electronically, [facility]#[id number], Partial fill upon patient request if the pr... Start Date: 03/18/22 Status: Ordered Dilaudid 2 mg oral tablet 1 tablet = 2 mg, By Mouth, Every 4 hours, # 10 tablet, 0 Refills, Maintenance, 03/18/22 18:17:00 EDT, Tablet, [facility] #[id number], Partial fill upon patient request if the prescription is fora schedule II opioid drug., 154, cm, 03/18/22 11:26... Start Date: 03/18/22 Status: Ordered ferrous sulfate 325 mg oral tablet 1 tablet = 325 mg, By Mouth, Daily, # 30 tablet, 3 Refills, Maintenance, 01/05/22 12:46:00 EDT, Tablet, [facility] #[id number], Partial fill upon patient request if the prescription is for a schedule II opioid drug., 154, cm, 01/04/22 13:56:00 ED... Start Date: 01/05/22 Status: Ordered ibuprofen 600 mg oral tablet 600 mg, 1, tablet, By Mouth, Every 6 hours, # 50 tablet, Refills 0, Tot. Refills 0, Maintenance, 03/18/22 15:18:00 EDT, Route to Pharmacy Electronically, [facility] #[id number], Partial fill upon patient request if the prescription is for a sched... Start Date: 03/18/22 Status: Ordered magnesium oxide 400 mg oral tablet 1 tablet = 400 mg, By Mouth, Daily, for 30 days, to treat and prevent headaches, # 30 tablet, 3 Refills, Acute 06/22/22 19:25:00 EST, 02/22/22 19:25:00 EDT, Tablet, [facility] #[id number], Partial fill upon patient request if the prescription is... Start Date: 02/22/22 Stop Date: 06/22/22 Status: Ordered MiraLax oral powder for reconstitution = 17 Gm, By Mouth, Daily, dissolve in water before taking, # 527 Gm, 0 Refills, Maintenance, 08/16/21 13:56:00 EST, REC Powder, [facility] #[id number], Partial fill upon patient request if the prescription is for a schedule II opioid drug., 17 Gm... Start Date: 08/16/21 Status: Ordered Multivitamins with Folic Acid 1 mg oral tablet 1 tablet, By Mouth, Daily, # 90 tablet, 3 Refills, Maintenance, 09/16/21 15:48:00 EST, Tablet, [facility] #[id number], Partial fill upon patient request if the prescription is for a schedule II opioid drug., 1 tablet By Mouth Daily, 157, cm, 0... Start Date: 09/16/21 Status: Ordered ProAir HFA 90 mcg/inh inhalation aerosol with adapter 2, puffs, Inhalation, Every 4 hours, PRN, # 8.5 Gm, Refills 2, Tot. Refills 2, Maintenance, 11/25/21 15:15:00 EDT, Aerosol, Route to Pharmacy Electronically, [id number], [facility] #[id number], 154, cm, 11/25/21 14:53:00... Start Date: 11/25/21 Status: Ordered simethicone 125 mg oral tablet, chewable 1 tablet = 125 mg, Chew, 4 times a day, # 48 tablet, 0 Refills, Maintenance, 03/18/22 15:18:00 EDT,Chew Tablet, [facility] #[id number], Partial fill upon patient request if the [...] 0 Refills, Maintenance, 03/18/22 15:18:00 EDT, Cream, [facility] #[id number], Partial fill upon patient request if the [...] in lifetime) entered on: 02/15/22 Sex Female Care Team Personnel Name: Lorraine Zendejas MD Address: [address] [place] [address]
--- OUTSIDE RECORDS SUMMARY | 2023-11-16 17:17 | XMS_ITS | Continuity of Care Document ---
Author Organization [facility] Address [address] [place] [address]- Care Team Providers Care Lathe Winder Name Role Phone Aashish IBARRA, Lorraine Primary Care Physician Encounter [facility] [facility] Date(s): 02/27/22 - 03/29/[address] [id number] Allergies, Adverse Reactions, Alerts Substance Reaction Severity [...] 0 Refills, Maintenance, 03/18/22 15:18:00 EDT, Capsule, [facility] #[id number], Partial fill upon patient request if the prescription is for a schedule II opioid . Start Date: 03/18/22 Status: Ordered Advair HFA 115 mcg / 21 mcg 2 puffs, Inhalation, 2 times a day, # 60 each, 5 Refills, Maintenance, 11/25/21 15:15:00 EDT, Aerosol, [facility] #[id number], Partial fill upon patient request if the prescription is for a schedule II opioid drug., 2 puffs Inhalation 2 times a d... Start Date: 11/25/21 Status: Ordered Aspirin Low Dose 81 mg oral delayed release tablet 2 tablet, By Mouth, Daily, START AT 12 WEEKS, 09/11/21, # 90 tablet, 3 Refills, [facility] #[id number], 154, cm, 01/04/22 13:56:00 EDT, Height, 86.5, kg, 10/29/21 21:50:00 EDT, Dry Weight Start Date: 01/05/22 Status: Ordered Colace sodium 100 mg oral capsule 100 mg, 1, capsule, By Mouth, 2 times a day, PRN, # 20 capsule, Refills 0, Tot. Refills 0, Maintenance, for constipation, 03/18/22 15:18:00 EDT, Route to Pharmacy Electronically, [facility][id number], Partial fill upon patient request if the pr... Start Date: 03/18/22 Status: Ordered Dilaudid 2 mg oral tablet 1 tablet = 2 mg, By Mouth, Every 4 hours, # 10 tablet, 0 Refills, Maintenance, 03/18/22 18:17:00 EDT, Tablet, [facility] #[id number], Partial fill upon patient request if the prescription is fora schedule II opioid drug., 154, cm, 03/18/22 11:26... Start Date: 03/18/22 Status: Ordered ferrous sulfate 325 mg oral tablet 1 tablet = 325 mg, By Mouth, Daily, # 30 tablet, 3 Refills, Maintenance, 01/05/22 12:46:00 EDT, Tablet, [facility] #[id number], Partial fill upon patient request if the prescription is for a schedule II opioid drug., 154, cm, 01/04/22 13:56:00 ED... Start Date: 01/05/22 Status: Ordered ibuprofen 600 mg oral tablet 600 mg, 1, tablet, By Mouth, Every 6 hours, # 50 tablet, Refills 0, Tot. Refills 0, Maintenance, 03/18/22 15:18:00 EDT, Route to Pharmacy Electronically, [facility][id number], Partial fill upon patient request if the prescription is for a sched... Start Date: 03/18/22 Status: Ordered magnesium oxide 400 mg oral tablet 1 tablet = 400 mg, By Mouth, Daily, for 30 days, to treat and prevent headaches, # 30 tablet, 3 Refills, Acute 06/22/22 19:25:00 EST, 02/22/22 19:25:00 EDT, Tablet, [facility] #[id number], Partial fill upon patient request if the prescription is... Start Date: 02/22/22 Stop Date: 06/22/22 Status: Ordered MiraLax oral powder for reconstitution = 17 Gm, By Mouth, Daily, dissolve in water before taking, # 527 Gm, 0 Refills, Maintenance, 08/16/21 13:56:00 EST, REC Powder, [facility] #[id number], Partial fill upon patient request if the prescription is for a schedule II opioid drug., 17 Gm... Start Date: 08/16/21 Status: Ordered Multivitamins with Folic Acid 1 mg oral tablet 1 tablet, By Mouth, Daily, # 90 tablet, 3 Refills, Maintenance, 09/16/21 15:48:00 EST, Tablet, [facility] #[id number], Partial fill upon patient request if the prescription is for a schedule II opioid drug., 1 tablet By Mouth Daily, 157, cm, 0... Start Date: 09/16/21 Status: Ordered ProAir HFA 90 mcg/inh inhalation aerosol with adapter 2, puffs, Inhalation, Every 4 hours, PRN, # 8.5 Gm, Refills 2, Tot. Refills 2, Maintenance, 11/25/21 15:15:00 EDT, Aerosol, Route to Pharmacy Electronically, [id number], [facility] #[id number], 154, cm, 11/25/21 14:53:00... Start Date: 11/25/21 Status: Ordered simethicone 125 mg oral tablet, chewable 1 tablet = 125 mg, Chew, 4 times a day, # 48 tablet, 0 Refills, Maintenance, 03/18/22 15:18:00 EDT,Chew Tablet, [facility] #[id number], Partial fill upon patient request if the [...] 0 Refills, Maintenance, 03/18/22 15:18:00 EDT, Cream, [facility] #[id number], Partial fill upon patient request if the [...]
--- OUTSIDE RECORDS SUMMARY | 2023-11-16 17:17 | XMS_ITS | Continuity of Care Document ---
Author Organization [facility] Address [address], [address], [address] [place] [address]- Care Team Providers Care Network Consultant Name Role Phone Aashish IBARRA, Lorraine Primary Care Physician [phone] Encounter [facility] Date(s): 01/22/23 - 02/21/23 [facility] [address], [address], [address] [place] [id number] Allergies, Adverse Reactions, Alerts Substance [...] 08/15/22 15:08:00 EST, Route to Pharmacy Electronically, [facility] #[id number], Partial fill upon patient request if the prescription... Start Date: 08/15/22 Status: Ordered Advair HFA 115 mcg / 21 mcg 2 puffs, Inhalation, 2 times a day, # 1 each, 5 Refills, Maintenance, 05/03/22 16:02:00 EDT, Aerosol, [facility] #[id number], Partial fill upon patient request if the prescription is for a schedule II opioid drug., 2 puffs Inhalation 2 times a da... Start Date: 05/03/22 Stop Date: 10/30/22 Status: Ordered albuterol 0.083% inhalation solution 3 mL = 2.5 mg, Inhalation, Every 6 hours, PRN Wheezing/Shortness of Breath, # 60 each, 1 Refills, Maintenance, 11/09/22 13:41:00 EDT, Solution, [facility] #[id number], Partial fill upon patient request if the prescription is for a schedule II opi... Start Date: 11/09/22 Status: Ordered albuterol CFC free 90 mcg/inh inhalation aerosol 2, puffs, Inhalation, Every 6 hours, PRN, for 30 days, # 8.5 Gm, Refills 11, Tot. Refills 11, Hard Stop 04/28/23 11:45:00 EDT, 05/03/22 11:45:00 EDT, Aerosol, Route to Pharmacy Electronically, [id number], [facility]... Start Date: 05/03/22 Stop Date: 04/28/23 Status: Ordered cetirizine 5 mg oral tablet = 5 mg, By Mouth, Daily, # 30 tablet, 0 Refills, Maintenance, 11/17/22 10:48:00 EDT, Tablet, [facility] #[id number], Partial fill upon patient request if the prescription is for a schedule II opioid drug., 156, cm, 11/17/22 8:44:00 EDT, Height, 8... Start Date: 11/17/22 Status: Ordered ibuprofen 400 mg oral tablet 400 mg, 1, tablet, By Mouth, Every 4 hours, PRN, # 60 tablet, Refills 0, Tot. Refills 0, Maintenance, for pain, 11/17/22 10:49:00 EDT, Route to Pharmacy Electronically, [facility] #[id number], Partial fill upon patient request if the prescription... Start Date: 11/17/22 Status: Ordered lidocaine 1.8% topical film 1 patch, Topically, Daily, leave on up to 12 hours, # 30 each, 0 Refills, Maintenance, 11/17/22 10:47:00 EDT, Film, [facility] #[id number], Partial fill upon patient request if the prescription is for a schedule II opioid drug., 1 patch Topically... Start Date: 11/17/22 Status: Ordered metroNIDAZOLE 0.75% topical gel 1 application, Topically, Daily at bedtime, use vaginal applicator to insert vaginally nightly for 5 nights, # 45 Gm, 0 Refills, Maintenance, 02/14/23 16:28:00 EDT, [id number], Partial fill upon patient request if the prescriptio... Start Date: 02/14/23 Stop Date: 02/19/23 Status: Ordered metroNIDAZOLE 500 mg oral tablet 1 tablet = 500 mg, By Mouth, Every 12 hours, # 28 tablet, 0 Refills, Maintenance, 01/25/23 16:14:00EDT, [facility][id number], Partial fill upon patient request if the prescription is for a schedule II opioid drug., 156, cm, 01/25/23 15... Start Date: 01/25/23 Stop Date: 02/08/23 Status: Ordered MiraLax oral powder for reconstitution = 17 Gm, By Mouth, Daily, dissolve in water before taking, # 527 Gm, 0 Refills, Maintenance, 11/17/22 10:47:00 EDT, REC Powder, [facility] #[id number], Partial fill upon patient request if the [...] Refills, Soft Stop, 01/25/23 10:30:00 EDT, Tablet, [facility]... Start Date: 01/25/23 Status: [...] Care Team Personnel Name: Gauri Pascual Position: [facility] RN Member Role: Primary Care Nurse Name: Lorraine Zendejas MD Position: [facility] Physician - Primary Care Member Role: PCP Address: Address: [address] [place] [address]- Care Team Related Persons Name: RELL PHELPS Address: [address] [address] Name: RUSLAN ABREU Address: [address] Address: home [address] [address] [place] Name: NAY DEL ANGEL Address: [place] [address] [place] [address] Name: PRAVIN PARKER Address: [address] [place] [address] Name: ADITHYA HAYDEN Address: [address] Address: home [address] [address] [place] Name: PRAVIN HAYDEN Address: [address] [place] [address]
--- OUTSIDE RECORDS SUMMARY | 2023-11-16 17:17 | XMS_ITS | Continuity of Care Document ---
Author Organization [facility] Address [address] [facility], [address] Floor, [address] [place] [address]- Care Team Providers Care Patient Access Specialist Name Role Phone Lorraine Zendejas MD Primary Care Physician [place] [facility]/26[place] - 09/25/20 [facility] [address], [address], [address] [place] [id number] Attending Physician: Roque Villela Admitting Physician: AdmRoque vasquez Referring Physician: AdmtrRoque Allergies, Adverse Reactions, Alerts [...] 08/25/20 9:53:00 EST, Route to Pharmacy Electronically, [facility] #[id number], 157, cm, 06/08/20 15:12:00 EST, Height, 84.5, kg, ... Start Date: 08/25/20 Status: Ordered Flovent HFA 220 mcg/inh inhalation aerosol 2 puffs, Inhalation, 2 times a day, use with spacer chamber rinse mouth and throat after use, # 1 each, 5 Refills, Maintenance, 08/04/20 12:45:00 EST, Aerosol, [facility] #[id number], 157, cm, 06/08/20 15:12:00 EST, Height, 84.5, kg, 04/29/19 4:... Start Date: 08/04/20 Status: Ordered ProAir HFA 90 mcg/inh inhalation aerosol with adapter 2, puffs, Inhalation, Every 4 hours, PRN, # 8.5 Gm, Refills 5, Tot. Refills 5, Maintenance, 08/04/20 12:45:00 EST, Aerosol, Route to Pharmacy Electronically, [id number], [facility] #[id number], 157, cm, 06/08/20 15:12:00... Start Date: 08/04/20 [...] # 18 tablet, 1 Refills, Soft Stop, [facility] #[id number], 157, cm, 07/31/19 8:49:00 EST, Height, 84.5, kg, 04/29/19 4:40:00 EDT, D... Start Date: 10/07/19 Status: Ordered Xulane 150 mcg-35 mcg/24 hr transdermal film, extended release 1 patch, Topically, Every week, # 3 each, 11 Refills, Maintenance, 05/26/20 10:54:00 EDT, [facility] #[id number], 1 patch Topically Every week,x7 days, 157, [...]
--- OUTSIDE RECORDS SUMMARY | 2023-11-16 17:18 | XMS_ITS | Continuity of Care Document ---
Author Organization [facility] Address [address] [place] [address]- Care Team Providers Care Sausage Linker Name Role Phone Aashish IBARRA, Lorraine Primary Care Physician [phone] Encounter [facility] Date(s): 02/20/22 - 03/30/[address] [address]- Attending Physician: Liliam Sanders MD, I Admitting Physician: Liliam Sanders MD, I Allergies, Adverse Reactions, Alerts Substance Reaction Severity [...] 0 Refills, Maintenance, 03/18/22 15:18:00 EDT, Capsule, [facility] #[id number], Partial fill upon patient request if the prescription is for a schedule II opioid . Start Date: 03/18/22 Status: Ordered Advair HFA 115 mcg / 21 mcg 2 puffs, Inhalation, 2 times a day, # 60 each, 5 Refills, Maintenance, 11/25/21 15:15:00 EDT, Aerosol, [facility] #[id number], Partial fill upon patient request if the prescription is for a schedule II opioid drug., 2 puffs Inhalation 2 times a d... Start Date: 11/25/21 Status: Ordered Aspirin Low Dose 81 mg oral delayed release tablet 2 tablet, By Mouth, Daily, START AT 12 WEEKS, 09/11/21, # 90 tablet, 3 Refills, [facility] #[id number], 154, cm, 01/04/22 13:56:00 EDT, Height, 86.5, kg, 10/29/21 21:50:00 EDT, Dry Weight Start Date: 01/05/22 Status: Ordered Colace sodium 100 mg oral capsule 100 mg, 1, capsule, By Mouth, 2 times a day, PRN, # 20 capsule, Refills 0, Tot. Refills 0, Maintenance, for constipation, 03/18/22 15:18:00 EDT, Route to Pharmacy Electronically, [facility]#[id number], Partial fill upon patient request if the pr... Start Date: 03/18/22 Status: Ordered Dilaudid 2 mg oral tablet 1 tablet = 2 mg, By Mouth, Every 4 hours, # 10 tablet, 0 Refills, Maintenance, 03/18/22 18:17:00 EDT, Tablet, [facility] #[id number], Partial fill upon patient request if the prescription is fora schedule II opioid drug., 154, cm, 03/18/22 11:26... Start Date: 03/18/22 Status: Ordered ferrous sulfate 325 mg oral tablet 1 tablet = 325 mg, By Mouth, Daily, # 30 tablet, 3 Refills, Maintenance, 01/05/22 12:46:00 EDT, Tablet, [facility] #[id number], Partial fill upon patient request if the prescription is for a schedule II opioid drug., 154, cm, 01/04/22 13:56:00 ED... Start Date: 01/05/22 Status: Ordered ibuprofen 600 mg oral tablet 600 mg, 1, tablet, By Mouth, Every 6 hours, # 50 tablet, Refills 0, Tot. Refills 0, Maintenance, 03/18/22 15:18:00 EDT, Route to Pharmacy Electronically, [facility] #[id number], Partial fill upon patient request if the prescription is for a sched... Start Date: 03/18/22 Status: Ordered magnesium oxide 400 mg oral tablet 1 tablet = 400 mg, By Mouth, Daily, for 30 days, to treat and prevent headaches, # 30 tablet, 3 Refills, Acute 06/22/22 19:25:00 EST, 02/22/22 19:25:00 EDT, Tablet, [facility] #[id number], Partial fill upon patient request if the prescription is... Start Date: 02/22/22 Stop Date: 06/22/22 Status: Ordered MiraLax oral powder for reconstitution = 17 Gm, By Mouth, Daily, dissolve in water before taking, # 527 Gm, 0 Refills, Maintenance, 08/16/21 13:56:00 EST, REC Powder, [facility] #[id number], Partial fill upon patient request if the prescription is for a schedule II opioid drug., 17 Gm... Start Date: 08/16/21 Status: Ordered Multivitamins with Folic Acid 1 mg oral tablet 1 tablet, By Mouth, Daily, # 90 tablet, 3 Refills, Maintenance, 09/16/21 15:48:00 EST, Tablet, [facility] #[id number], Partial fill upon patient request if the prescription is for a schedule II opioid drug., 1 tablet By Mouth Daily, 157, cm, 0... Start Date: 09/16/21 Status: Ordered ProAir HFA 90 mcg/inh inhalation aerosol with adapter 2, puffs, Inhalation, Every 4 hours, PRN, # 8.5 Gm, Refills 2, Tot. Refills 2, Maintenance, 11/25/21 15:15:00 EDT, Aerosol, Route to Pharmacy Electronically, [id number], [facility] #[id number], 154, cm, 11/25/21 14:53:00... Start Date: 11/25/21 Status: Ordered simethicone 125 mg oral tablet, chewable 1 tablet = 125 mg, Chew, 4 times a day, # 48 tablet, 0 Refills, Maintenance, 03/18/22 15:18:00 EDT,Chew Tablet, [facility] #[id number], Partial fill upon patient request if the [...] 0 Refills, Maintenance, 03/18/22 15:18:00 EDT, Cream, [facility] #[id number], Partial fill upon patient request if the [...] Team Personnel Name: Lorraine Zendejas MD Address: [address] [place] [address]
--- OUTSIDE RECORDS SUMMARY | 2023-11-16 17:18 | XMS_ITS | Continuity of Care Document ---
Author Organization [facility]olay [facility] Address [address] [facility], [address] [place] [address]- Care Team Providers Care Business Technology Professor Name Role Phone Lorraine Zendejas MD Primary Care Physician Encounter [facility] Date(s): 09/12/21 - 10/12/21 [facility] [address] [facility], [address]th [address] [place], [place] [address] Allergies, Adverse Reactions, Alerts Substance [...] 5 Refills, Maintenance, 11/16/20 15:34:00 EDT, Aerosol, [facility] #[id number], Partial fill upon patient request if the prescription is for a schedule II opioid drug., 2 puffs Inhalation 2 times a d... Start Date: 11/16/20 Status: Ordered aspirin 81 mg oral delayed release tablet 2 tablet = 162 mg, By Mouth, Daily, start at 12 weeks, 09/11/21, # 90 tablet, 0 Refills, Maintenance,08/16/21 13:37:00 EST, CR Tablet, [facility] #[id number], Partial fill upon patient request ifthe prescription is for a schedule II opioid drug.,... Start Date: 08/16/21 Status: Ordered Benadryl 25 mg oral capsule 2 capsule = 50 mg, By Mouth, Daily at bedtime, PRN Pain , Moderate, # 100 capsule, 0 Refills, Maintenance, 10/04/21 2:02:00 EST, Capsule, [facility] #[id number], Partial fill upon patient request if the prescription is for a schedule II opioid dr... Start Date: 10/04/21 Status: Ordered clotrimazole 1% vaginal cream with applicator 1 application, Vaginally, Daily at bedtime, Apply vaginally each night for 1 week., # 45 Gm, 0 Refills, Maintenance, 10/12/21 14:02:00 EST, Cream, [facility] #[id number], Partial fill upon patient request if the prescription is for a schedule II... Start Date: 10/12/21 Status: Ordered Lidoderm 5% film 1 patch, Topically, Daily, (remove patch(s) after 12 hours), # 30 patch, 0 Refills, Maintenance, 10/12/20 11:07:00 EST, [facility] #[id number], Partial fill upon patient request if the prescription is for a schedule II opioid drug., 1 patch Topic... Start Date: 10/12/20 Status: Ordered MiraLax oral powder for reconstitution = 17 Gm, By Mouth, Daily, dissolve in water before taking, # 527 Gm, 0 Refills, Maintenance, 08/16/21 13:56:00 EST, REC Powder, [facility] #[id number], Partial fill upon patient request if the prescription is for a schedule II opioid drug., 17 Gm... Start Date: 08/16/21 Status: Ordered Multivitamins with Folic Acid 1 mg oral tablet 1 tablet, By Mouth, Daily, # 90 tablet, 3 Refills, Maintenance, 09/16/21 15:48:00 EST, Tablet, [facility] #[id number], Partial fill upon patient request if the prescription is for a schedule II opioid drug., 1 tablet By Mouth Daily, 157, cm, 0... Start Date: 09/16/21 Status: Ordered Multivitamins with Vitamin B Complex, Vitamin C, Minerals and L- Methylfolate oral capsule 1 capsule, By Mouth, Daily, # 30 capsule, 11 Refills, Maintenance, 08/05/21 17:50:00 EST, Capsule, [facility] #[id number], Partial fill upon patient request if the prescription is for a scheduleII opioid drug., 1 capsule By Mouth Daily, 157, cm,... Start Date: 08/05/21 Status: Ordered ProAir HFA 90 mcg/inh inhalation aerosol with adapter 2, puffs, Inhalation, Every 4 hours, PRN, # 8.5 Gm, Refills 5, Tot. Refills 5, Maintenance, 01/06/21 8:08:00 EDT, Aerosol, Route to Pharmacy Electronically, [id number], [facility] #[id number], 157, cm, 11/17/20 9:48:00 E... Start Date: 01/06/21 Status: Ordered Reglan 5 mg oral tablet 2 tablet = 10 mg, By Mouth, Once, # 28 tablet, 0 Refills, Soft Stop, 10/04/21 2:02:00 EST, Tablet, [facility] #[id number], Partial fill upon patient request if the prescription is for a scheduleII opioid drug., 157, cm, 09/12/21 14:39:00 EST, He... Start Date: 10/04/21 Status: Ordered Spacer for asthma Spacer for [...] bacteriuria(Confirmed) Active Chest pain(Confirmed) Active Depression(Confirmed) Active GBS carrier(Confirmed) Active Headache(Confirmed) Active History of pre-eclampsia(Confirmed) Active Obese class II(Confirmed) Active Uterine scar from previous c esarean delivery(Confirmed) Active Social History Social History Type Response Smoking Status Never smoker; Tobacc o user in household: No entered on: 12/05/16 Sex Female
--- OUTSIDE RECORDS SUMMARY | 2023-11-16 17:18 | XMS_ITS | Continuity of Care Document ---
Author Organization [facility] ter Address [address] [place] [address]- Care Team Providers Care Lapel Padder Name Role Phone Lorraine Zendejas MD Primary Care Physician Encounter [facility] [place] Date(s): 02/15/22 - 02/15/[address] [address]- Discharge Disposition: A-D/C Home Attending Physician: En [...] each, 5 Refills, Maintenance, 11/25/21 15:15:00 EDT, Emily, [facility] #[id number], Partial fill upon patient request if the prescription is for a schedule II opioid drug., 2 puffs Inhalation 2 times a d... Start Date: 11/25/21 Status: Ordered Aspirin Low Dose 81 mg oral delayed release tablet 2 tablet, By Mouth, Daily, START AT 12 WEEKS, 09/11/21, # 90 tablet, 3 Refills, [facility] #[id number], 154, cm, 01/04/22 13:56:00 EDT, Height, 86.5, kg, 10/29/21 21:50:00 EDT, Dry Weight Start Date: 01/05/22 Status: Ordered Benadryl 25 mg oral capsule 1 capsule = 25 mg, By Mouth, 3 times a day, PRN Headache, # 30 capsule, 1 Refills, Acute 02/17/22 19:35:00 EDT, 02/15/22 19:34:00 EDT, Capsule, [facility] #[id number], Partial fill upon patient request if the prescription is for a schedule II opi... Start Date: 02/15/22 Stop Date: 02/17/22 Status: Ordered ferrous sulfate 325 mg oral tablet 1 tablet = 325 mg, By Mouth, Daily, # 30 tablet, 3 Refills, Maintenance, 01/05/22 12:46:00 EDT, Tablet, [facility] #[id number], Partial fill upon patient request if the prescription is for a schedule II opioid drug., 154, cm, 01/04/22 13:56:00 ED... Start Date: 01/05/22 Status: Ordered Fioricet Tablet 2 tablet, Tablet, By Mouth, Once, PRN for Headache, STAT, 02/15/22 15:26:00 EDT Notes: Butalbital 50mg, Not to exceed 4000mg of Acetaminophen per 24 hours. 325mg, Caffeine 40mg per tablet Start Date: 02/15/22 Stop Date: 02/15/22 Status: Completed Lidoderm 5% film 1 patch, Topically, Daily, (remove patch(s) after 12 hours), # 30 patch, 5 Refills, Maintenance, 11/25/21 15:09:00 EDT, [facility] #[id number], Partial fill upon patient request if the prescription is for a schedule II opioid drug., 1 patch Topic... Start Date: 11/25/21 Status: Ordered MiraLax oral powder for reconstitution = 17 Gm, By Mouth, Daily, dissolve in water before taking, # 527 Gm, 0 Refills, Maintenance, 08/16/21 13:56:00 EST, REC Powder, [facility] #[id number], Partial fill upon patient request if the prescription is for a schedule II opioid drug., 17 Gm... Start Date: 08/16/21 Status: Ordered Multivitamins with Folic Acid 1 mg oral tablet 1 tablet, By Mouth, Daily, # 90 tablet, 3 Refills, Maintenance, 09/16/21 15:48:00 EST, Tablet, [facility] #[id number], Partial fill upon patient request if the prescription is for a schedule II opioid drug., 1 tablet By Mouth Daily, 157, cm, 0... Start Date: 09/16/21 Status: Ordered ProAir HFA 90 mcg/inh inhalation aerosol with adapter 2, puffs, Inhalation, Every 4 hours, PRN, # 8.5 Gm, Refills 2, Tot. Refills 2, Maintenance, 11/25/21 15:15:00 EDT, Aerosol, Route to Pharmacy Electronically, [id number], [facility] #[id number], 154, cm, 11/25/21 14:53:00... Start Date: 11/25/21 Status: Ordered Reglan 10 mg oral tablet 1 tablet = 10 mg, By Mouth, 3 times a day, PRN Headache, # 30 tablet, 1 Refills, Acute 02/17/22 19:35:00 EDT, 02/15/22 19:34:00 EDT, [facility] #[id number], Partial fill upon patient request if the prescription is for a schedule II opioid drug.,... Start Date: 02/15/22 Stop Date: 02/17/22 Status: Ordered Spacer for asthma Spacer for [...] 1 Refills, Maintenance, 01/08/22 14:18:00 EDT, Capsule, [facility] #[id number], Partial fill upon patient request if the prescrip... Start Date: 01/08/22 Status: Ordered Problem List Condition Effective Dates [...] to oldest [Reference Range]: 1 2 3 Oxygen Saturation [94-100 %] 100 % (02/15/22 5:00 PM) 100 % (02/15/22 4:40 PM) 100 % (02/15/22 4:18 PM) Pulse Rate [55-90 bpm] 86 bpm (02/15/22 3:08 PM) 88 bpm (02/15/22 2:25 PM) Blood Pressure [90-138/55-84 mm Hg] 111/57mm Hg (02/15/22 5:00 PM) 109/72mm Hg (02/15/22 4:40 PM) 123/74mm Hg (02/15/22 4:18 PM) Respiratory Rate [16-30 br/min] 18 br/min (02/15/22 6:18 PM) 18 br/min (02/15/22 5:26 PM) 20 br/min (02/15/22 3:08 PM) Temperature [96.8-100.4 DegF] 99.4 DegF (02/15/22 3:08 PM) 97.5 DegF (02/15/22 2:25 PM) Mode of Delivery (Oxygen) Room air (02/15/22 3:08 PM) Room air (02/15/22 2:25 PM) Blood pressure sites Arm, right (02/15/22 3:08 PM) Arm, right (02/15/22 2:25 PM) Temperature Route Oral (02/15/22 3:08 PM) Oral (02/15/22 2:25 PM) Social History Social History Type Response Smoking Status Never (less than 100 in lifetime) entered on: 02/15/22 Sex Female
--- OUTSIDE RECORDS SUMMARY | 2023-11-16 17:18 | XMS_ITS | Continuity of Care Document ---
Author Organization [facility] Address [address] [facility], 3r d Floor, [address] [place] [address]- Care Team Providers Care Forging Die Sinker Name Role Phone Lorraine Zendejas MD Primary Care Physician Encounter [facility] Date(s): 10/02/19 - 10/12/19 [facility] [address], [address] Floor, [address] [place] [address]- [facility] Attending Physician: Roque Villela Admitting Physician: AdmRoque vasquez Referring Physician: Admtr, ArNicole Allergies, Adverse Reactions, Alerts Substance Reaction Severity [...] Refills, Maintenance, 08/04/19 15:51:00 EST, Chew Tablet, [facility] #[id number], 1 tablet Chew Daily,x90 days, 157, cm, [...] 11:47:01 EDT, Aerosol, Route to Pharmacy Electronically, [id number], [id number] Start Date: 10/30/18 Status: Ordered Slow Fe [...] # 18 tablet, 1 Refills, Soft Stop, [facility] #[id number], 157, cm, 07/31/19 8:49:00 EST, Height, 84.5, kg, 04/29/19 4:40:00 Clark JOHNSON Start Date: 10/07/19 Status: Ordered Problem List Condition Effective Dates Status Health Status Inform ant Anemia(Confirmed) Active Asthma(Confirmed) Active Depression(Confirmed) Active Fatigue(Confirmed) Active Headache(Confirmed) Active History of pre-eclampsia(Confirmed) Active Social History Social History Type Response Smoking Status Never smoker; Tobacc o user in household: No entered on: 12/05/16 Sex Female
--- OUTSIDE RECORDS SUMMARY | 2023-11-16 17:18 | XMS_ITS | Continuity of Care Document ---
Author Organization [facility] Address [address] [place] [address]- Care Team Providers Care Bottom Cementer Name Role Phone Lorraine Zendejas MD Primary Care Physician Encounter [facility] Date(s): 04/29/20 - 05/29/[address] [address]- [facility] Attending Physician: AdmRoque vasquez Admitting Physician: AdmtrRoque Referring Physician: Admtr, Ar8 [...] 5 Refills, Maintenance, 11/03/19 12:31:00 EDT, Aerosol, [facility] #[id number], 157, cm, 07/31/19 8:49:00 EST, Height, 84.5, kg, 04/29/19 4:4... Start Date: 11/03/19 Status: Ordered ProAir HFA 90 mcg/inh inhalation aerosol with adapter 2, puffs, Inhalation, Every 4 hours, PRN, # 8.5 Gm, Refills 5, Tot. Refills 5, Maintenance, 11/03/19 12:31:00 EDT, Aerosol, Route to Pharmacy Electronically, [id number], [facility] #03503, 157, cm, 07/31/19 8:49:00... Start Date: 11/03/19 [...] # 18 tablet, 1 Refills, Soft Stop, [facility] #[id number], 157, cm, 07/31/19 8:49:00 EST, Height, 84.5, kg, 04/29/19 4:40:00 EDT, D... Start Date: 10/07/19 Status: Ordered Xulane 150 mcg-35 mcg/24 hr transdermal film, extended release 1 patch, Topically, Every week, # 3 each, 11 Refills, Maintenance, 05/26/20 10:54:00 EDT, [facility] #[id number], 1 patch Topically Every week,x7 days, 157, [...]
--- OUTSIDE RECORDS SUMMARY | 2023-11-16 17:18 | XMS_ITS | Continuity of Care Document ---
Author Organization [facility] Address [address] [place] [address]- Care Team Providers Care Animal Ride Manager Name Role Phone Aashish IBARRA, Lorraine Primary Care Physician [phone] Encounter [facility] Date(s): 11/09/22 - 12/13/[address] [address]- Attending Physician: Not on Staff, Attending MD Referring Physician: Francie Kirkland BUILD MANAGER, Brittany Allergies, Adverse Reactions, Alerts Substance Reaction Severity [...] 08/15/22 15:08:00 EST, Route to Pharmacy Electronically, [facility] #[id number], Partial fill upon patient request if the prescription... Start Date: 08/15/22 Status: Ordered Advair HFA 115 mcg / 21 mcg 2 puffs, Inhalation, 2 times a day, # 1 each, 5 Refills, Maintenance, 05/03/22 16:02:00 EDT, Aerosol, [facility] #07525, Partial fill upon patient request if the prescription is for a schedule II opioid drug., 2 puffs Inhalation 2 times a da... Start Date: 05/03/22 Stop Date: 10/30/22 Status: Ordered albuterol 0.083% inhalation solution 3 mL = 2.5 mg, Inhalation, Every 6 hours, PRN Wheezing/Shortness of Breath, # 60 each, 1 Refills, Maintenance, 11/09/22 13:41:00 EDT, Solution, [facility] #[id number], Partial fill upon patient request if the prescription is for a schedule II opi... Start Date: 11/09/22 Status: Ordered albuterol CFC free 90 mcg/inh inhalation aerosol 2, puffs, Inhalation, Every 6 hours, PRN, for 30 days, # 8.5 Gm, Refills 11, Tot. Refills 11, Hard Stop 04/28/23 11:45:00 EDT, 05/03/22 11:45:00 EDT, Aerosol, Route to Pharmacy Electronically, [id number], [facility]... Start Date: 05/03/22 Stop Date: 04/28/23 Status: Ordered cetirizine 5 mg oral tablet = 5 mg, By Mouth, Daily, # 30 tablet, 0 Refills, Maintenance, 11/17/22 10:48:00 EDT, Tablet, [facility] #[id number], Partial fill upon patient request if the prescription is for a schedule II opioid drug., 156, cm, 11/17/22 8:44:00 EDT, Height, 8... Start Date: 11/17/22 Status: Ordered ibuprofen 400 mg oral tablet 400 mg, 1, tablet, By Mouth, Every 4 hours, PRN, # 60 tablet, Refills 0, Tot. Refills 0, Maintenance, for pain, 11/17/22 10:49:00 EDT, Route to Pharmacy Electronically, [facility] #[id number], Partial fill upon patient request if the prescription... Start Date: 11/17/22 Status: Ordered lidocaine 1.8% topical film 1 patch, Topically, Daily, leave on up to 12 hours, # 30 each, 0 Refills, Maintenance, 11/17/22 10:47:00 EDT, Film, [facility] #[id number], Partial fill upon patient request if the prescription is for a schedule II opioid drug., 1 patch Topically... Start Date: 11/17/22 Status: Ordered MiraLax oral powder for reconstitution = 17 Gm, By Mouth, Daily, dissolve in water before taking, # 527 Gm, 0 Refills, Maintenance, 11/17/22 10:47:00 EDT, REC Powder, [facility] #[id number], Partial fill upon patient request if the [...] 2 Refills, Maintenance, 11/07/22 17:30:00 EDT, Tablet, [facility] #[id number], Partial fill upon patient request if the [...] Care Team Personnel Name: Gauri Pascual Position: [facility] RN Member Role: Primary Care Nurse Name: Lorraine Zendejas MD Position: [facility] Primary Care Physician Member Role: PCP Address: Address: [address] [place] [address]- Care Team Related Persons Name: RELL PHELPS Address: [address] [address] Name: RUSLAN ABREU Address: [address] Address: [address] [address] [place] Name: NAY DEL ANGEL Address: home [address] [place] [address] Name: PRAVIN PARKER Address: home [address] [place] [address] Name: ADITHYA HAYDEN Address: [id number] Address: [address] [address] [place] Name: PRAVIN HAYDEN Address: home [address] [place] [address]
--- OUTSIDE RECORDS SUMMARY | 2023-11-16 17:18 | XMS_ITS | Continuity of Care Document ---
Author Organization [facility] Address [address] [place] [address]- Care Team Providers Care Tow Boat Captain Name Role Phone Aashish IBARRA, Lorraine Primary Care Physician [phone] Encounter [facility] Date(s): 06/21/20 - 07/21/[address] [address]- Attending Physician: Admchristina, Roque Admitting Physician: Admtr, Roque Referring Physician: Admtr, Ar8 Allergies, Adverse Reactions, [...] 5 Refills, Maintenance, 11/03/19 12:31:00 EDT, Aerosol, [facility] #[id number], 157, cm, 07/31/19 8:49:00 EST, Height, 84.5, kg, 04/29/19 4:4... Start Date: 11/03/19 Status: Ordered naproxen 500 mg oral tablet 1 tablet = 500 mg, By Mouth, 2 times a day, for 30 days, PRN Pain. with food, # 60 tablet, 1 Refills, Hard Stop 08/17/20 8:28:00 EST, 06/18/20 8:28:00 EST, Tablet, [facility] #49395, 157, cm, 06/08/20 15:12:00 EST, Height, 84.5, kg, 04/29/19... Start Date: 06/18/20 Stop Date: 08/17/20 Status: Ordered ProAir HFA 90 mcg/inh inhalation aerosol with adapter 2, puffs, Inhalation, Every 4 hours, PRN, # 8.5 Gm, Refills 5, Tot. Refills 5, Maintenance, 11/03/19 12:31:00 EDT, Aerosol, Route to Pharmacy Electronically, [id number], [facility] #[id number], 157, cm, 07/31/19 8:49:00... Start Date: 11/03/19 [...] # 18 tablet, 1 Refills, Soft Stop, [facility] #[id number], 157, cm, 07/31/19 8:49:00 EST, Height, 84.5, kg, 04/29/19 4:40:00 EDT, D... Start Date: 10/07/19 Status: Ordered Xulane 150 mcg-35 mcg/24 hr transdermal film, extended release 1 patch, Topically, Every week, # 3 each, 11 Refills, Maintenance, 05/26/20 10:54:00 EDT, [facility] #[id number], 1 patch Topically Every week,x7 days, 157, [...]
--- OUTSIDE RECORDS SUMMARY | 2023-11-16 17:18 | XMS_ITS | Continuity of Care Document ---
Author Organization [facility] Address [address] [place] [address]- Care Team Providers Care Car Wiper Name Role Phone Aashish IBARRA, Lorraine Primary Care Physician [facility] Date(s): 07/31/19 - 10/31/19 [facility] [address] [address]- [facility] Attending Physician: Not on Staff, Attending MD Allergies, Adverse Reactions, Alerts Substance Reaction [...] 15:51:00 EST, Chew Tablet, [facility] #[id number], 1 tablet Chew Daily,x90 days, 157, cm, [...] 11:47:01 EDT, Aerosol, Route to Pharmacy Electronically, [id number], [facility] [address] Start Date: 10/30/18 Status: Ordered Slow Fe [...] # 18 tablet, 1 Refills, Soft Stop, [facility] #61371, 157, cm, 07/31/19 8:49:00 EST, Height, 84.5, [...]
--- OUTSIDE RECORDS SUMMARY | 2023-11-16 17:18 | XMS_ITS | Continuity of Care Document ---
Author Organization [facility] Address [address] [place] [address]- Care Team Providers Care Clay Machine Operator Name Role Phone Lorraine Zendejas MD Primary Care Physician Encounter [facility] [place] Date(s): 11/10/20 - 12/10/20 [facility] [address] [address] Attending Physician: Roque Villela Admitting Physician: AdmtrRoque Referring Physician: Admtr, ArNicole Allergies, Adverse Reactions, [...] 5 Refills, Maintenance, 11/16/20 15:34:00 EDT, Aerosol, [facility] #07429, Partial fill upon patient request if the prescription is for a schedule II opioid drug., 2 puffs Inhalation 2 times a d... Start Date: 11/16/20 Status: Ordered Ambien 5 mg oral tablet See Instructions, 1 tablet to take the night of in lab sleep study, after arrival to sleep lab, # 1tablet, 0 Refills, Acute 02/10/21 9:42:00 EDT, 11/11/20 9:41:00 EDT, [facility] #[id number], Partial fill upon patient request if the prescription... Start Date: 11/11/20 Stop Date: 02/10/21 Status: Ordered cyclobenzaprine 10 mg oral tablet 1, tablet, By Mouth, 3 times a day, PRN, # 45 tablet, Refills 0, Tot. Refills 0, Acute, NEEDED FOR SPASM, 08/25/20 9:53:00 EST, Route to Pharmacy Electronically, [facility] #[id number], 157, cm, 06/08/20 15:12:00 EST, Height, 84.5, kg, ... Start Date: 08/25/20 Status: Ordered Lidoderm 5% film 1 patch, Topically, Daily, (remove patch(s) after 12 hours), # 30 patch, 0 Refills, Maintenance, 10/12/20 11:07:00 EST, [facility] #[id number], Partial fill upon patient request if the prescription is for a schedule II opioid drug., 1 patch Topic... Start Date: 10/12/20 Status: Ordered ProAir HFA 90 mcg/inh inhalation aerosol with adapter 2, puffs, Inhalation, Every 4 hours, PRN, # 8.5 Gm, Refills 5, Tot. Refills 5, Maintenance, 08/04/20 12:45:00 EST, Aerosol, Route to Pharmacy Electronically, [id number], [facility] #96371, 157, cm, 06/08/20 15:12:00... Start Date: 08/04/20 [...] # 18 tablet, 1 Refills, Soft Stop, [facility] #[id number], 157, cm, 07/31/19 8:49:00 EST, Height, 84.5, kg, 04/29/19 4:40:00 EDT, D... Start Date: 10/07/19 Status: Ordered Xulane 150 mcg-35 mcg/24 hr transdermal film, extended release 1 patch, Topically, Every week, # 3 each, 11 Refills, Maintenance, 05/26/20 10:54:00 EDT, [facility] #22158, 1 patch Topically Every week,x7 days, 157, [...]
--- OUTSIDE RECORDS SUMMARY | 2023-11-16 17:18 | XMS_ITS | Continuity of Care Document ---
Author Organization [facility] Address [address] [place] [address]- Care Team Providers Care Sql Application Developer Name Role Phone Aashish IBARRA, Lorraine Primary Care Physician [phone] [place] [facility] [place]12[place] - 01/11/[address] [address]- Attending Physician: Admchristina, Roque Admitting Physician: Admtr, [place]8 Referring Physician: Admtr, Ar8 Allergies, Adverse Reactions, [...] 08/15/22 15:08:00 EST, Route to Pharmacy Electronically, [facility][id number], Partial fill upon patient request if the prescription... Start Date: 08/15/22 Status: Ordered Advair HFA 115 mcg / 21 mcg 2 puffs, Inhalation, 2 times a day, # 1 each, 5 Refills, Maintenance, 05/03/22 16:02:00 EDT, Aerosol, [facility] #81005, Partial fill upon patient request if the prescription is for a schedule II opioid drug., 2 puffs Inhalation 2 times a da... Start Date: 05/03/22 Stop Date: 10/30/22 Status: Ordered albuterol 0.083% inhalation solution 3 mL = 2.5 mg, Inhalation, Every 6 hours, PRN Wheezing/Shortness of Breath, # 60 each, 1 Refills, Maintenance, 11/09/22 13:41:00 EDT, Solution, [facility] #[id number], Partial fill upon patient request if the prescription is for a schedule II opi... Start Date: 11/09/22 Status: Ordered albuterol CFC free 90 mcg/inh inhalation aerosol 2, puffs, Inhalation, Every 6 hours, PRN, for 30 days, # 8.5 Gm, Refills 11, Tot. Refills 11, Hard Stop 04/28/23 11:45:00 EDT, 05/03/22 11:45:00 EDT, Aerosol, Route to Pharmacy Electronically, [id number], [facility]... Start Date: 05/03/22 Stop Date: 04/28/23 Status: Ordered cetirizine 5 mg oral tablet = 5 mg, By Mouth, Daily, # 30 tablet, 0 Refills, Maintenance, 11/17/22 10:48:00 EDT, Tablet, [facility] #[id number], Partial fill upon patient request if the prescription is for a schedule II opioid drug., 156, cm, 11/17/22 8:44:00 EDT, Height, 8... Start Date: 11/17/22 Status: Ordered ibuprofen 400 mg oral tablet 400 mg, 1, tablet, By Mouth, Every 4 hours, PRN, # 60 tablet, Refills 0, Tot. Refills 0, Maintenance, for pain, 11/17/22 10:49:00 EDT, Route to Pharmacy Electronically, [facility] #75791, Partial fill upon patient request if the prescription... Start Date: 11/17/22 Status: Ordered lidocaine 1.8% topical film 1 patch, Topically, Daily, leave on up to 12 hours, # 30 each, 0 Refills, Maintenance, 11/17/22 10:47:00 EDT, Film, [facility] #71494, Partial fill upon patient request if the prescription is for a schedule II opioid drug., 1 patch Topically... Start Date: 11/17/22 Status: Ordered MiraLax oral powder for reconstitution = 17 Gm, By Mouth, Daily, dissolve in water before taking, # 527 Gm, 0 Refills, Maintenance, 11/17/22 10:47:00 EDT, REC Powder, [facility] #[id number], Partial fill upon patient request if the [...] Dry Weight Start Date: 11/09/22 Status: Ordered Topamax 50 mg oral tablet 1 tablet = 50 mg, By Mouth, 2 times a day, # 60 tablet, 2 Refills, Maintenance, 11/07/22 17:30:00 EDT, Tablet, [facility] #76531, Partial fill upon patient request if the [...] in lifetime) entered on: 02/15/22 Sex Female Laboratory * Event Display: Non BH Lab Results Authored Date: [id number] Patient Care team information Care Team Personnel Name: Gauri Pascual Position: [facility] RN Member Role: Primary Care Nurse Name: Lorraine Zendejas MD Position: [facility] Physician - Primary Care Member Role: PCP Address: Address: [address] [place] [address]- Care Team Related Persons Name: RELL PHELPS Address: [address] [address] Name: RUSLAN ABREU Address: [address] Address: [address] [address] [place] Name: NAY DEL ANGEL Address: home [address] [place] [address] Name: PRAVIN PARKER Address: home [address] [place] [address] Name: ADITHYA HAYDEN Address: [address] Address: [address] [address] [place] Name: PRAVIN HAYDEN Address: home [address] [place] [address]
--- OUTSIDE RECORDS SUMMARY | 2023-11-16 17:18 | XMS_ITS | Continuity of Care Document ---
Author Organization [facility] Address [address] [facility], [address]r d Floor, [address] [place] [address]- Care Team Providers Care Spool Fixer Name Role Phone Lorraine Zendejas MD Primary Care Physician [place] [facility] [place]19[place] - 01/13/21 [facility] [address] [place], [address] Floor, [address] [place] [address]- Attending Physician: Michaelle Garg Admitting Physician: Michaelle Garg Allergies, Adverse Reactions, Alerts Substance Reaction Severity [...] 5 Refills, Maintenance, 11/16/20 15:34:00 EDT, Aerosol, [facility] #[id number], Partial fill upon patient request if the prescription is for a schedule II opioid drug., 2 puffs Inhalation 2 times a d... Start Date: 11/16/20 Status: Ordered Ambien 5 mg oral tablet See Instructions, 1 tablet to take the night of in lab sleep study, after arrival to sleep lab, # 1tablet, 0 Refills, Acute 02/10/21 9:42:00 EDT, 11/11/20 9:41:00 EDT, [facility] #[id number], Partial fill upon patient request if the prescription... Start Date: 11/11/20 Stop Date: 02/10/21 Status: Ordered cyclobenzaprine 10 mg oral tablet 1, tablet, By Mouth, 3 times a day, PRN, # 45 tablet, Refills 0, Tot. Refills 0, Acute, NEEDED FOR SPASM, 08/25/20 9:53:00 EST, Route to Pharmacy Electronically, [facility] #69693, 157, cm, 06/08/20 15:12:00 EST, Height, 84.5, kg, ... Start Date: 08/25/20 Status: Ordered Lidoderm 5% film 1 patch, Topically, Daily, (remove patch(s) after 12 hours), # 30 patch, 0 Refills, Maintenance, 10/12/20 11:07:00 EST, [facility] #[id number], Partial fill upon patient request if the prescription is for a schedule II opioid drug., 1 patch Topic... Start Date: 10/12/20 Status: Ordered ProAir HFA 90 mcg/inh inhalation aerosol with adapter 2, puffs, Inhalation, Every 4 hours, PRN, # 8.5 Gm, Refills 5, Tot. Refills 5, Maintenance, 01/06/21 8:08:00 EDT, Aerosol, Route to Pharmacy Electronically, [id number], [facility] #18484, 157, cm, 11/17/20 9:48:00 E... Start Date: [...] tablet, 0 Refills, Maintenance, 12/13/20 14:28:00 EDT, [facility] #21354, 157, cm, 11/17/20 9:48:00 EDT, Height, 84.5, kg... Start Date: 12/13/20 Status: Ordered Xulane 150 mcg-35 mcg/24 hr transdermal film, extended release 1 patch, Topically, Every week, # 3 each, 11 Refills, Maintenance, 05/26/20 10:54:00 EDT, [facility] #[id number], 1 patch Topically Every week,x7 days, 157, [...]
--- OUTSIDE RECORDS SUMMARY | 2023-11-16 17:18 | XMS_ITS | Continuity of Care Document ---
Author Organization [facility] Address [address] [place] [address]- Care Team Providers Care Manager Clinical Services Name Role Phone Aashish IBARRA, Lorraine Primary Care Physician [facility] Date[facility]): 06[facility]18[facility]19 - 07/23/19 [facility] [address] [address]- [facility] Attending Physician: Not on Staff, Attending [...] 2Admin Note: ORAL 3Admin Note: ORAL Medications Colace sodium 100 mg oral capsule 100 mg, 1, capsule, By Mouth, 2 times a day, PRN, # 50 capsule, Refills 0, Tot. Refills 0, Maintenance, for constipation, 05/02/19 6:54:27 EDT, Route to Pharmacy Electronically, [id number], [facility] #[id number] Start Date: 05/02/19 Status: Ordered DOUBLE ELECTRIC BREAST PUMP DOUBLE ELECTRIC BREAST [...] Date: 06/30/19 Stop Date: 10/28/19 Status: Ordered Ortho Micronor 0.35 mg oral [...] 11:47:01 EDT, Aerosol, Route to Pharmacy Electronically, [id number], [facility] [id number] Start Date: 10/30/18 Status: Ordered Slow Fe [...] EST, Tablet Start Date: 06/30/19 Status: Ordered Wrist splints cocked to neutral position Wrist splints cocked to neutral position, See Instructions, # 2 each, Refills 0, Tot. Refills 0, Maintenance, bilateral wrist splints to be worn every night to bed for carpal tunnel syndrome G56.00, 04/02/19 16:23:18 EDT, Compound Start Date: 04/02/19 Status: Ordered Problem List Condition Effective Dates Status Health Status Inform ant Anemia(Confirmed) Active Asthma(Confirmed) Active Depression(Confirmed) Active Headache(Confirmed) Active History of pre-eclampsia(Confirmed) Active Social History Social History Type Response Smoking Status Never smoker; Tobacc o user in household: No entered on: 12/05/16 Sex Female
--- OUTSIDE RECORDS SUMMARY | 2023-11-16 17:18 | XMS_ITS | Continuity of Care Document ---
Author Organization [facility] Address [address] [place] [address]- Care Team Providers Care Poll Watcher Name Role Phone Aashish IBARRA, Lorraine Primary Care Physician [phone] Encounter [facility] Date(s): 04/28/22 - 05/28/[address] [address]- Allergies, Adverse Reactions, Alerts Substance Reaction Severity [...] tablet, 0 Refills, Maintenance, 05/17/22 15:05:00 EDT, [facility] #[id number], Partial fill upon patient request if the prescription is for a schedule II opioid . Start Date: 05/17/22 Status: Ordered Advair HFA 115 mcg / 21 mcg 2 puffs, Inhalation, 2 times a day, # 1 each, 5 Refills, Maintenance, 05/03/22 16:02:00 EDT, Aerosol, [facility] #[id number], Partial fill upon patient request if the prescription is for a schedule II opioid drug., 2 puffs Inhalation 2 times a da... Start Date: 05/03/22 Stop Date: 10/30/22 Status: Ordered albuterol CFC free 90 mcg/inh inhalation aerosol 2, puffs, Inhalation, Every 6 hours, PRN, # 8.5 Gm, Refills 11, Tot. Refills 11, Maintenance, 05/03/22 11:45:00 EDT, Aerosol, Route to Pharmacy Electronically, [id number], [facility] #[id number], dispense brand preferred... Start Date: 05/03/22 Stop Date: 04/28/23 Status: Ordered clotrimazole 1% topical cream 1 application, Topically, 2 times a day, # 12 Gm, 0 Refills, Maintenance, 04/11/22 4:42:00 EDT, Cream, [facility] #[id number], Partial fill upon patient request if the prescription is for a schedule II opioid drug., 1 application Topically 2 time... Start Date: 04/11/22 Status: Ordered Colace sodium 100 mg oral capsule 100 mg, 1, capsule, By Mouth, 2 times a day, PRN, # 20 capsule, Refills 0, Tot. Refills 0, Maintenance, for constipation, 03/18/22 15:18:00 EDT, Route to Pharmacy Electronically, [facility]#[id number], Partial fill upon patient request if the pr... Start Date: 03/18/22 Status: Ordered Dilaudid 2 mg oral tablet 1 tablet = 2 mg, By Mouth, Every 4 hours, # 10 tablet, 0 Refills, Maintenance, 03/18/22 18:17:00 EDT, Tablet, [facility] #[id number], Partial fill upon patient request if the prescription is fora schedule II opioid drug., 154, cm, 03/18/22 11:26... Start Date: 03/18/22 Status: Ordered ferrous sulfate 325 mg oral tablet 1 tablet = 325 mg, By Mouth, Daily, # 30 tablet, 3 Refills, Maintenance, 01/05/22 12:46:00 EDT, Tablet, [facility] #[id number], Partial fill upon patient request if the prescription is for a schedule II opioid drug., 154, cm, 01/04/22 13:56:00 ED... Start Date: 01/05/22 Status: Ordered ibuprofen 600 mg oral tablet 600 mg, 1, tablet, By Mouth, Every 6 hours, # 50 tablet, Refills 0, Tot. Refills 0, Maintenance, 03/18/22 15:18:00 EDT, Route to Pharmacy Electronically, [facility] #[id number], Partial fill upon patient request if the prescription is for a sched... Start Date: 03/18/22 Status: Ordered magnesium oxide 400 mg oral tablet 1 tablet = 400 mg, By Mouth, Daily, for 30 days, to treat and prevent headaches, # 30 tablet, 3 Refills, Acute 06/22/22 19:25:00 EST, 02/22/22 19:25:00 EDT, Tablet, [facility] #[id number], Partial fill upon patient request if the prescription is... Start Date: 02/22/22 Stop Date: 06/22/22 Status: Ordered MiraLax oral powder for reconstitution = 17 Gm, By Mouth, Daily, dissolve in water before taking, # 527 Gm, 0 Refills, Maintenance, 08/16/21 13:56:00 EST, REC Powder, [facility] #[id number], Partial fill upon patient request if the prescription is for a schedule II opioid drug., 17 Gm... Start Date: 08/16/21 Status: Ordered Multivitamins with Folic Acid 1 mg oral tablet 1 tablet, By Mouth, Daily, # 90 tablet, 3 Refills, Maintenance, 05/03/22 12:05:00 EDT, Tablet, [facility] #[id number], Partial fill upon patient request if the prescription is for a schedule II opioid drug., 1 tablet By Mouth Daily,x90 days, 157,... Start Date: 05/03/22 Stop Date: 04/28/23 Status: Ordered simethicone 125 mg oral tablet, chewable 1 tablet = 125 mg, Chew, 4 times a day, # 48 tablet, 0 Refills, Maintenance, 03/18/22 15:18:00 EDT,Chew Tablet, [facility] #[id number], Partial fill upon patient request if the [...] 0 Refills, Maintenance, 03/18/22 15:18:00 EDT, Cream, [facility] #[id number], Partial fill upon patient request if the [...] Personnel Name: Lorraine Zendejas MD Address: Address: [address] [place] [address]
--- OUTSIDE RECORDS SUMMARY | 2023-11-16 17:18 | XMS_ITS | Continuity of Care Document ---
Author Organization [facility] Address [address] [place] [address]- Care Team Providers Care Credentialing Coordinator Name Role Phone Lorraine Zendejas MD Primary Care Physician [phone] [facility]counter [facility] Date(s): 03/11/22 - 04/16/22 [facility] [address] [address]- Attending Physician: Ana Ribera MD Admitting Physician: Ana Ribera MD Referring Physician: Kathrine Camilo DO Allergies, Adverse Reactions, Alerts Substance Reaction [...] 0 Refills, Maintenance, 03/18/22 15:18:00 EDT, Capsule, [facility] #[id number], Partial fill upon patient request if the prescription is for a schedule II opioid . Start Date: 03/18/22 Status: Ordered Advair HFA 115 mcg / 21 mcg 2 puffs, Inhalation, 2 times a day, # 60 each, 5 Refills, Maintenance, 11/25/21 15:15:00 EDT, Aerosol, [facility] #[id number], Partial fill upon patient request if the prescription is for a schedule II opioid drug., 2 puffs Inhalation 2 times a d... Start Date: 11/25/21 Status: Ordered Aspirin Low Dose 81 mg oral delayed release tablet 2 tablet, By Mouth, Daily, START AT 12 WEEKS, 09/11/21, # 90 tablet, 3 Refills, [facility] #[id number], 154, cm, 01/04/22 13:56:00 EDT, Height, 86.5, kg, 10/29/21 21:50:00 EDT, Dry Weight Start Date: 01/05/22 Status: Ordered cephalexin monohydrate 500 mg oral capsule 1 capsule = 500 mg, By Mouth, 4 times a day, for 10 days, # 40 capsule, 0 Refills, Acute 04/21/22 4:40:00 EDT, 04/11/22 4:40:00 EDT, Capsule, [facility] #[id number], Partial fill upon patient request if the prescription is for a schedule II opioi... Start Date: 04/11/22 Stop Date: 04/21/22 Status: Ordered clotrimazole 1% topical cream 1 application, Topically, 2 times a day, # 12 Gm, 0 Refills, Maintenance, 04/11/22 4:42:00 EDT, Cream, [facility] #[id number], Partial fill upon patient request if the prescription is for a schedule II opioid drug., 1 application Topically 2 time... Start Date: 04/11/22 Status: Ordered Colace sodium 100 mg oral capsule 100 mg, 1, capsule, By Mouth, 2 times a day, PRN, # 20 capsule, Refills 0, Tot. Refills 0, Maintenance, for constipation, 03/18/22 15:18:00 EDT, Route to Pharmacy Electronically, [facility]#[id number], Partial fill upon patient request if the pr... Start Date: 03/18/22 Status: Ordered Dilaudid 2 mg oral tablet 1 tablet = 2 mg, By Mouth, Every 4 hours, # 10 tablet, 0 Refills, Maintenance, 03/18/22 18:17:00 EDT, Tablet, [facility] #[id number], Partial fill upon patient request if the prescription is fora schedule II opioid drug., 154, cm, 03/18/22 11:26... Start Date: 03/18/22 Status: Ordered ferrous sulfate 325 mg oral tablet 1 tablet = 325 mg, By Mouth, Daily, # 30 tablet, 3 Refills, Maintenance, 01/05/22 12:46:00 EDT, Tablet, [facility] #[id number], Partial fill upon patient request if the prescription is for a schedule II opioid drug., 154, cm, 01/04/22 13:56:00 ED... Start Date: 01/05/22 Status: Ordered ibuprofen 600 mg oral tablet 600 mg, 1, tablet, By Mouth, Every 6 hours, # 50 tablet, Refills 0, Tot. Refills 0, Maintenance, 03/18/22 15:18:00 EDT, Route to Pharmacy Electronically, [facility] #[id number], Partial fill upon patient request if the prescription is for a sched... Start Date: 03/18/22 Status: Ordered magnesium oxide 400 mg oral tablet 1 tablet = 400 mg, By Mouth, Daily, for 30 days, to treat and prevent headaches, # 30 tablet, 3 Refills, Acute 06/22/22 19:25:00 EST, 02/22/22 19:25:00 EDT, Tablet, [facility] #[id number], Partial fill upon patient request if the prescription is... Start Date: 02/22/22 Stop Date: 06/22/22 Status: Ordered MiraLax oral powder for reconstitution = 17 Gm, By Mouth, Daily, dissolve in water before taking, # 527 Gm, 0 Refills, Maintenance, 08/16/21 13:56:00 EST, REC Powder, [facility] #[id number], Partial fill upon patient request if the prescription is for a schedule II opioid drug., 17 Gm... Start Date: 08/16/21 Status: Ordered Multivitamins with Folic Acid 1 mg oral tablet 1 tablet, By Mouth, Daily, # 90 tablet, 3 Refills, Maintenance, 09/16/21 15:48:00 EST, Tablet, [facility] #[id number], Partial fill upon patient request if the prescription is for a schedule II opioid drug., 1 tablet By Mouth Daily, 157, cm, 020... Start Date: 09/16/21 Status: Ordered ProAir HFA 90 mcg/inh inhalation aerosol with adapter 2, puffs, Inhalation, Every 4 hours, PRN, # 8.5 Gm, Refills 2, Tot. Refills 2, Maintenance, 11/25/21 15:15:00 EDT, Aerosol, Route to Pharmacy Electronically, [id number], [facility] #[id number], 154, cm, 11/25/21 14:53:00... Start Date: 11/25/21 Status: Ordered simethicone 125 mg oral tablet, chewable 1 tablet = 125 mg, Chew, 4 times a day, # 48 tablet, 0 Refills, Maintenance, 03/18/22 15:18:00 EDT,Chew Tablet, [facility] #[id number], Partial fill upon patient request if the [...] 0 Refills, Maintenance, 03/18/22 15:18:00 EDT, Cream, [facility] #[id number], Partial fill upon patient request if the [...] Team Personnel Name: Lorraine Zendejas MD Address: [address] [place] [address]
--- OUTSIDE RECORDS SUMMARY | 2023-11-16 17:18 | XMS_ITS | Continuity of Care Document ---
Author Organization [facility] Address [address] [facility], [address] d Floor, [address] [place] [address]- Care Team Providers Care Outreach Clinician Name Role Phone Lorraine Zendejas MD Primary Care Physician [place] [facility] [place] 08/09[place]23 - 09/08/23 [facility] [address], [address], [address] [place] [id number] Attending Physician: AdmRoque vasquez Admitting Physician: Admtr, Roque Referring Physician: Admtr, [...] 08/15/22 15:08:00 EST, Route to Pharmacy Electronically, [email or web address] #[id number], Partial fill upon patient request if the prescription... Start Date: 08/15/22 Status: Ordered Advair HFA 115 mcg / 21 mcg 2 puffs, Inhalation, 2 times a day, # 1 each, 5 Refills, Maintenance, 05/03/22 16:02:00 EDT, Aerosol, [email or web address] #[id number], Partial fill upon patient request if the prescription is for a schedule II opioid drug., 2 puffs Inhalation 2 times a da... Start Date: 05/03/22 Stop Date: 10/30/22 Status: Ordered albuterol 0.083% inhalation solution 3 mL = 2.5 mg, Inhalation, Every 6 hours, PRN for wheezing, # 25 each, 0 Refills, Maintenance, 05/29/23 20:07:00 EDT, Solution, [email or web address] #[id number], Partial fill upon patient request if the prescription is for a schedule II opioid drug., 156,... Start Date: 05/29/23 Status: Ordered aluminum hydroxide/magnesium hydroxide/simethicone 200 mg-200 mg-20 mg/5 mL oral suspension 10 mL, By Mouth, 4 times a day, PRN for control of stomach acid, for 7 days, # 180 mL, 0 Refills, Acute 09/10/23 15:29:00 EST, 09/03/23 15:29:00 EST, Suspension, [facility] #[id number], Partial fill upon patient request if the prescription is for... Start Date: 09/03/23 Stop Date: 09/10/23 Status: Ordered cetirizine 5 mg oral tablet = 5 mg, By Mouth, Daily, # 30 tablet, 0 Refills, Maintenance, 11/17/22 10:48:00 EDT, Tablet, [facility] #[id number], Partial fill upon patient request if the prescription is for a schedule II opioid drug., 156, cm, 11/17/22 8:44:00 EDT, Height, 8... Start Date: 11/17/22 Status: Ordered Depakote 250 mg oral enteric coated tablet 1 tablet = 250 mg, By Mouth, 2 times a day, # 60 tablet, 3 Refills, Maintenance, 02/28/23 16:39:00 EDT, [email or web address] #[id number], Partial fill upon patient request if the prescription is for a schedule II opioid drug., 155, cm, 02/28/23 11:38:00 ED... Start Date: 02/28/23 Status: Ordered dicyclomine 20 mg oral tablet 1 tablet = 20 mg, By Mouth, 4 times a day, 30 to 60 minutes before meals, # 28 tablet, 4 Refills, Maintenance, 04/05/23 11:18:00 EDT, Tablet, [facility] #[id number], Partial fill upon patient request if the prescription is for a schedule II opioi... Start Date: 04/05/23 Stop Date: 05/10/23 Status: Ordered ibuprofen 400 mg oral tablet 400 mg, 1, tablet, By Mouth, Every 4 hours, PRN, # 60 tablet, Refills 0, Tot. Refills 0, Maintenance, for pain, 11/17/22 10:49:00 EDT, Route to Pharmacy Electronically, [facility] #[id number], Partial fill upon patient request if the prescription... Start Date: 11/17/22 Status: Ordered MiraLax oral powder for reconstitution = 17 Gm, By Mouth, Daily, dissolve in water before taking, # 527 Gm, 0 Refills, Maintenance, 11/17/22 10:47:00 EDT, REC Powder, [facility] #[id number], Partial fill upon patient request if the prescription is for a schedule II opioid drug., 17 Gm... Start Date: 11/17/22 Status: Ordered Nexplanon 68 mg subcutaneous implant 1 each = 68 mg, Subcutaneous Infusion, Once, Left arm, placed 07/23/2023 Lot #[id number], # 1 each, 0 Refills, Maintenance, 07/23/23 [...] Refills, Soft Stop, 01/25/23 10:30:00 EDT, Tablet, [facility] #[facility]... Start Date: 01/25/23 Status: [...] Team Personnel Name: Vivi Bailey NP Position: [facility] PCO Associate Professional Member Role: Lifetime Consulting Provider Address: Address: [address] [place] [address]- Name: Gauri Pascual Position: [facility] RN Member Role: Primary Care Nurse Name: Lorraine Zendejas MD Position: [facility] Physician - Primary Care Member Role: PCP Address: Address: [address] [place] [address]- Care Team Related Persons Name: KENDAL PHELPS Address: home [address] [place] [address] Name: RELL PHELPS Address: [address] [address] Name: RUSLAN ABREU Address: [address] Address: home [address] [place] [address] [place] Name: NAY DEL ANGEL Address: home [address] [place] [address] Name: PRAVIN PARKER Address: [address] [place] [address] Name: ADITHYA HAYDEN Address: [address] Address: [address] [place] [address] [place] Name: PRAVIN HAYDEN Address: [address] [place] [address]
--- OUTSIDE RECORDS SUMMARY | 2023-11-16 17:18 | XMS_ITS | Continuity of Care Document ---
Author Organization [facility] Address [address] [place] [address]- Care Team Providers Care Robotics Technician Name Role Phone Lorraine Zendejas MD Primary Care Physician [facility] Date(s): 06/06/23 - 09/15/[address] [address]- Attending Physician: Lorraine Zendejas MD Admitting Physician: Lorraine Zendejas MD Referring Physician: Chastity Malloy Allergies, Adverse Reactions, Alerts Substance Reaction Severity [...] 08/15/22 15:08:00 EST, Route to Pharmacy Electronically, [facility] #[id number], Partial fill upon patient request if the prescription... Start Date: 08/15/22 Status: Ordered Advair HFA 115 mcg / 21 mcg 2 puffs, Inhalation, 2 times a day, # 1 each, 5 Refills, Maintenance, 05/03/22 16:02:00 EDT, Aerosol, [facility] #[id number], Partial fill upon patient request if the prescription is for a schedule II opioid drug., 2 puffs Inhalation 2 times a da... Start Date: 05/03/22 Stop Date: 10/30/22 Status: Ordered albuterol 0.083% inhalation solution 3 mL = 2.5 mg, Inhalation, Every 6 hours, PRN for wheezing, # 25 each, 0 Refills, Maintenance, 05/29/23 20:07:00 EDT, Solution, [facility] #[id number], Partial fill upon patient request if the prescription is for a schedule II opioid drug., 156,... Start Date: 05/29/23 Status: Ordered cetirizine 5 mg oral tablet = 5 mg, By Mouth, Daily, # 30 tablet, 0 Refills, Maintenance, 11/17/22 10:48:00 EDT, [facility] #[id number], Partial fill upon patient request if the prescription is for a schedule II opioid drug., 156, cm, 11/17/22 8:44:00 EDT, Height, 8... Start Date: 11/17/22 Status: Ordered Depakote 250 mg oral enteric coated tablet 1 tablet = 250 mg, By Mouth, 2 times a day, # 60 tablet, 3 Refills, Maintenance, 02/28/23 16:39:00 EDT, [facility] #[id number], Partial fill upon patient request if the prescription is for a schedule II opioid drug., 155, cm, 02/28/23 11:38:00 ED... Start Date: 02/28/23 Status: Ordered dicyclomine 20 mg oral tablet 1 tablet = 20 mg, By Mouth, 4 times a day, 30 to 60 minutes before meals, # 28 tablet, 4 Refills, Maintenance, 04/05/23 11:18:00 EDT, [facility] #[id number], Partial fill upon patient request if the prescription is for a schedule II opioi... Start Date: 04/05/23 Stop Date: 05/10/23 Status: Ordered ibuprofen 400 mg oral tablet 400 mg, 1, tablet, By Mouth, Every 4 hours, PRN, # 60 tablet, Refills 0, Tot. Refills 0, Maintenance, for pain, 11/17/22 10:49:00 EDT, Route to Pharmacy Electronically, [facility] #[id number], Partial fill upon patient request if the prescription... Start Date: 11/17/22 Status: Ordered MiraLax oral powder for reconstitution = 17 Gm, By Mouth, Daily, dissolve in water before taking, # 527 Gm, 0 Refills, Maintenance, 11/17/22 10:47:00 EDT, REC Powder, [facility] #[id number], Partial fill upon patient request if the prescription is for a schedule II opioid drug., 17 Gm... Start Date: 11/17/22 Status: Ordered Nexplanon 68 mg subcutaneous implant 1 each = 68 mg, Subcutaneous Infusion, Once, Left arm, placed 07/23/2023 Lot #[id number], # 1 each, 0 Refills, Maintenance, 07/23/23 16:11:00 EST, Partial fill upon patient request if the prescription is for a schedule II opioid drug. Start Date: 07/23/23 Status: Ordered ondansetron 4 mg oral tablet, disintegrating 1 tablet = 4 mg, By Mouth, Every 8 hours, PRN Nausea & Vomiting, # 10 tablet, 0 Refills, Maintenance, 09/15/23 11:34:00 EST, Tablet, [facility] #[id number], Partial fill upon patient requestif the prescription [...] Refills, Soft Stop, 01/25/23 10:30:00 EDT, Tablet, [facility] #[facility]... Start Date: 01/25/23 Status: [...] Team Personnel Name: Vivi Bailey NP Position: [facility] PCO Associate Professional Member Role: Lifetime Consulting Provider Address: Address: [address] [place] [address]- Name: Gauri Pascual Position: [facility] RN Member Role: Primary Care Nurse Name: Lorraine Zendejas MD Position: [facility] Physician - Primary Care Member Role: PCP Address: Address: [address] [place] [address]- Care Team Related Persons Name: KENDAL PHELPS Address: home [address] [place] [address] Name: RELL PHELPS Address: [address] [address] Name: RUSLAN ABREU Address: [address] Address: [address] [place] [address] [place] Name: NAY DEL ANGEL Address: [address] [place] [address] Name: PRAVIN PARKER Address: [address] [place] [address] Name: ADITHYA HAYDEN Address: [address] Address: [address] [place] [address] [place] Name: PRAVIN HAYDEN Address: [address] [place] [address]
--- OUTSIDE RECORDS SUMMARY | 2023-11-16 17:18 | XMS_ITS | Continuity of Care Document ---
Author Organization [facility] Address [address] [place] [address]- Care Team Providers Care Credit Analyst Name Role Phone Aashish IBARRA, Lorraine Primary Care Physician [facility]counter [facility] Date(s): 05/15/23 - 06/14/23 [facility] [address] [place] [id number] Allergies, Adverse Reactions, Alerts Substance Reaction Severity [...] 08/15/22 15:08:00 EST, Route to Pharmacy Electronically, [facility] #[id number], Partial fill upon patient request if the prescription... Start Date: 08/15/22 Status: Ordered Advair HFA 115 mcg / 21 mcg 2 puffs, Inhalation, 2 times a day, # 1 each, 5 Refills, Maintenance, 05/03/22 16:02:00 EDT, Aerosol, [facility] #[id number], Partial fill upon patient request if the prescription is for a schedule II opioid drug., 2 puffs Inhalation 2 times a da... Start Date: 05/03/22 Stop Date: 10/30/22 Status: Ordered albuterol 0.083% inhalation solution 3 mL = 2.5 mg, Inhalation, Every 6 hours, PRN Wheezing/Shortness of Breath, # 60 each, 1 Refills, Maintenance, 11/09/22 13:41:00 EDT, Solution, [facility] #[id number], Partial fill upon patient request if the prescription is for a schedule II opi... Start Date: 11/09/22 Status: Ordered albuterol 0.083% inhalation solution 3 mL = 2.5 mg, Inhalation, Every 6 hours, PRN for wheezing, # 25 each, 0 Refills, Maintenance, 05/29/23 20:07:00 EDT, Solution, [facility] #[id number], Partial fill upon patient request if the prescription is for a schedule II opioid drug., 156,... Start Date: 05/29/23 Status: Ordered cetirizine 5 mg oral tablet = 5 mg, By Mouth, Daily, # 30 tablet, 0 Refills, Maintenance, 11/17/22 10:48:00 EDT, Tablet, [facility] #[id number], Partial fill upon patient request if the prescription is for a schedule II opioid drug., 156, cm, 11/17/22 8:44:00 EDT, Height, 8... Start Date: 11/17/22 Status: Ordered Depakote 250 mg oral enteric coated tablet 1 tablet = 250 mg, By Mouth, 2 times a day, # 60 tablet, 3 Refills, Maintenance, 02/28/23 16:39:00 EDT, [facility] #[id number], Partial fill upon patient request if the prescription is for a schedule II opioid drug., 155, cm, 02/28/23 11:38:00 ED... Start Date: 02/28/23 Status: Ordered dicyclomine 20 mg oral tablet 1 tablet = 20 mg, By Mouth, 4 times a day, 30 to 60 minutes before meals, # 28 tablet, 4 Refills, Maintenance, 04/05/23 11:18:00 EDT, Tablet, [facility] #[id number], Partial fill upon patient request if the prescription is for a schedule II opioi... Start Date: 04/05/23 Stop Date: 05/10/23 Status: Ordered ibuprofen 400 mg oral tablet 400 mg, 1, tablet, By Mouth, Every 4 hours, PRN, # 60 tablet, Refills 0, Tot. Refills 0, Maintenance, for pain, 11/17/22 10:49:00 EDT, Route to Pharmacy Electronically, [facility] #[id number], Partial fill upon patient request if the prescription... Start Date: 11/17/22 Status: Ordered lidocaine 1.8% topical film 1 patch, Topically, Daily, leave on up to 12 hours, # 30 each, 0 Refills, Maintenance, 11/17/22 10:47:00 EDT, Film, [facility] #[id number], Partial fill upon patient request if the prescription is for a schedule II opioid drug., 1 patch Topically... Start Date: 11/17/22 Status: Ordered metroNIDAZOLE 0.75% topical gel 1 application, Topically, Daily at bedtime, use vaginal applicator to insert vaginally nightly for 5 nights, # 45 Gm, 0 Refills, Maintenance, 02/14/23 16:28:00 EDT, Gel, [facility] #[id number], Partial fill upon patient request if the prescriptio... Start Date: 02/14/23 Stop Date: 02/19/23 Status: Ordered metroNIDAZOLE 500 mg oral tablet 1 tablet = 500 mg, By Mouth, Every 12 hours, # 28 tablet, 0 Refills, Maintenance, 01/25/23 16:14:00EDT, Tablet, [facility] #[id number], Partial fill upon patient request if the prescription is for a schedule II opioid drug., 156, cm, 01/25/23 15... Start Date: 01/25/23 Stop Date: 02/08/23 Status: Ordered MiraLax oral powder for reconstitution = 17 Gm, By Mouth, Daily, dissolve in water before taking, # 527 Gm, 0 Refills, Maintenance, 11/17/22 10:47:00 EDT, REC Powder, [facility] #[id number], Partial fill upon patient request if the prescription is for a schedule II opioid drug., 17 Gm... Start Date: 11/17/22 Status: Ordered morphine 15 mg oral tablet, immediate release 1 tablet = 15 mg, By Mouth, Every 4 hours, PRN as needed for pain, # 10 tablet, 0 Refills, Maintenance, 04/03/23 19:18:00 EDT, Tablet, [facility] #[id number], Partial fill upon patient request if the prescription is for a schedule II opioid drug.... Start Date: 04/03/23 Status: Ordered ondansetron 4 mg oral tablet, disintegrating 1 tablet = 4 mg, By Mouth, Every 8 hours, PRN as needed for nausea/vomiting, # 10 tablet, 0 Refills, Maintenance, 04/03/23 19:22:00 EDT, DIS Tablet, [facility] #[id number], Partial fill upon patient request if the prescription is for a schedule I... Start Date: 04/03/23 Status: Ordered predniSONE 20 mg oral tablet 1 tablet = 20 mg, By Mouth, 2 times a day, # 10 tablet, 0 Refills, Soft Stop, 05/29/23 20:12:00 EDT, [facility] #[id number], Partial fill upon patient request if the prescription is for a schedule II opioid drug., 156, cm, 05/29/23 18:08:... Start Date: 05/29/23 Stop Date: 06/03/23 Status: Ordered Spacer for asthma Spacer for [...] 3 Refills, Soft Stop, 01/25/23 10:30:00 EDT, [facility] #0... Start Date: 01/25/23 Status: [...] Team Personnel Name: Vivi Bailey NP Position: [facility] PCO Associate Professional Member Role: Lifetime Consulting Provider Address: Address: [address] [place] [id number]- Name: Gauri Pascual Position: [facility] RN Member Role: Primary Care Nurse Name: Lorraine Zendejas MD Position: [facility] Physician - Primary Care Member Role: PCP Address: Address: [address] [place] [address]- Care Team Related Persons Name: KENDAL PHELPS Address: home [address] [place] [address] Name: RELL PHELPS Address: [address] [address] Name: RUSLAN ABREU Address: [address] Address: home [address] [place] [address] [place] Name: NAY DEL ANGEL Address: home [address] [place] [address] Name: PRAVIN PARKER Address: home [address] [place] [address] Name: ADITHYA HAYDEN Address: [address] Address: [address] [address] [place] Name: PRAVIN HAYDEN Address: [address] [place] [address]
--- OUTSIDE RECORDS SUMMARY | 2023-11-16 17:18 | XMS_ITS | Continuity of Care Document ---
Author Organization [facility] Address [address] [place] [address]- Care Team Providers Care Branch Employment Coordinator Name Role Phone Aashish IBARRA, Lorraine Primary Care Physician [phone] Encounter [facility] Date(s): 06/07/23 - 07/07/[address] [address]- Allergies, Adverse Reactions, Alerts Substance Reaction Severity [...] 08/15/22 15:08:00 EST, Route to Pharmacy Electronically, [facility] #[id number], Partial fill upon patient request if the prescription... Start Date: 08/15/22 Status: Ordered Advair HFA 115 mcg / 21 mcg 2 puffs, Inhalation, 2 times a day, # 1 each, 5 Refills, Maintenance, 05/03/22 16:02:00 EDT, Aerosol, [facility] #[id number], Partial fill upon patient request if the prescription is for a schedule II opioid drug., 2 puffs Inhalation 2 times a da... Start Date: 05/03/22 Stop Date: 10/30/22 Status: Ordered albuterol 0.083% inhalation solution 3 mL = 2.5 mg, Inhalation, Every 6 hours, PRN Wheezing/Shortness of Breath, # 60 each, 1 Refills, Maintenance, 11/09/22 13:41:00 EDT, Solution, [facility] #[id number], Partial fill upon patient request if the prescription is for a schedule II opi... Start Date: 11/09/22 Status: Ordered albuterol 0.083% inhalation solution 3 mL = 2.5 mg, Inhalation, Every 6 hours, PRN for wheezing, # 25 each, 0 Refills, Maintenance, 05/29/23 20:07:00 EDT, Solution, [facility] #[id number], Partial fill upon patient request if the prescription is for a schedule II opioid drug., 156,... Start Date: 05/29/23 Status: Ordered cetirizine 5 mg oral tablet = 5 mg, By Mouth, Daily, # 30 tablet, 0 Refills, Maintenance, 11/17/22 10:48:00 EDT, [facility] #[id number], Partial fill upon patient request if the prescription is for a schedule II opioid drug., 156, cm, 11/17/22 8:44:00 EDT, Height, 8... Start Date: 11/17/22 Status: Ordered Depakote 250 mg oral enteric coated tablet 1 tablet = 250 mg, By Mouth, 2 times a day, # 60 tablet, 3 Refills, Maintenance, 02/28/23 16:39:00 EDT, [facility] #[id number], Partial fill upon patient request if the prescription is for a schedule II opioid drug., 155, cm, 02/28/23 11:38:00 ED... Start Date: 02/28/23 Status: Ordered dicyclomine 20 mg oral tablet 1 tablet = 20 mg, By Mouth, 4 times a day, 30 to 60 minutes before meals, # 28 tablet, 4 Refills, Maintenance, 04/05/23 11:18:00 EDT, [facility] #[id number], Partial fill upon patient request if the prescription is for a schedule II opioi... Start Date: 04/05/23 Stop Date: 05/10/23 Status: Ordered ibuprofen 400 mg oral tablet 400 mg, 1, tablet, By Mouth, Every 4 hours, PRN, # 60 tablet, Refills 0, Tot. Refills 0, Maintenance, for pain, 11/17/22 10:49:00 EDT, Route to Pharmacy Electronically, [facility] #[id number], Partial fill upon patient request if the prescription... Start Date: 11/17/22 Status: Ordered lidocaine 1.8% topical film 1 patch, Topically, Daily, leave on up to 12 hours, # 30 each, 0 Refills, Maintenance, 11/17/22 10:47:00 EDT, Film, [facility] #[id number], Partial fill upon patient request if the prescription is for a schedule II opioid drug., 1 patch Topically... Start Date: 11/17/22 Status: Ordered metroNIDAZOLE 0.75% topical gel 1 application, Topically, Daily at bedtime, use vaginal applicator to insert vaginally nightly for 5 nights, # 45 Gm, 0 Refills, Maintenance, 02/14/23 16:28:00 EDT, Gel, [facility] #[id number], Partial fill upon patient request if the prescriptio... Start Date: 02/14/23 Stop Date: 02/19/23 Status: Ordered metroNIDAZOLE 500 mg oral tablet 1 tablet = 500 mg, By Mouth, Every 12 hours, # 28 tablet, 0 Refills, Maintenance, 01/25/23 16:14:00EDT, Tablet, [facility] #[id number], Partial fill upon patient request if the prescription is for a schedule II opioid drug., 156, cm, 01/25/23 15... Start Date: 01/25/23 Stop Date: 02/08/23 Status: Ordered MiraLax oral powder for reconstitution = 17 Gm, By Mouth, Daily, dissolve in water before taking, # 527 Gm, 0 Refills, Maintenance, 11/17/22 10:47:00 EDT, REC Powder, [facility] #[id number], Partial fill upon patient request if the prescription is for a schedule II opioid drug., 17 Gm... Start Date: 11/17/22 Status: Ordered morphine 15 mg oral tablet, immediate release 1 tablet = 15 mg, By Mouth, Every 4 hours, PRN as needed for pain, # 10 tablet, 0 Refills, Maintenance, 04/03/23 19:18:00 EDT, [facility][id number], Partial fill upon patient request if the prescription is for a schedule II opioid drug.... Start Date: 04/03/23 Status: Ordered ondansetron 4 mg oral tablet, disintegrating 1 tablet = 4 mg, By Mouth, Every 8 hours, PRN as needed for nausea/vomiting, # 10 tablet, 0 Refills, Maintenance, 04/03/23 19:22:00 EDT, DIS Tablet, [facility] #[id number], Partial fill upon patient request if the prescription is for a schedule I... Start Date: 04/03/23 Status: Ordered predniSONE 20 mg oral tablet 1 tablet = 20 mg, By Mouth, 2 times a day, # 10 tablet, 0 Refills, Soft Stop, 05/29/23 20:12:00 EDT, [facility] #[id number], Partial fill upon patient request if the [...] 3 Refills, Soft Stop, 01/25/23 10:30:00 EDT, [facility]... Start Date: 01/25/23 Status: [...] Team Personnel Name: Vivi Bailey NP Position: [facility] PCO Associate Professional Member Role: Lifetime Consulting Provider Address: Address: [address] [place] [address]- Name: Gauri Pascual Position: [facility] RN Member Role: Primary Care Nurse Name: Lorraine Zendejas MD Position: [facility] Physician - Primary Care Member Role: PCP Address: Address: [address] [place] [address]- Care Team Related Persons Name: KENDAL PHELPS Address: [address] [place] [address] Name: RELL PHELPS Address: [address] [address] Name: RUSLAN ABREU Address: [address] Address: [address] [place] [address] [place] Name: NAY DEL ANGEL Address: [address] [place] [address] Name: PRAVIN PARKER Address: [address] [place] [address] Name: ADITHYA HAYDEN Address: [address] Address: [address] [place] [address] [place] Name: PRAVIN HAYDEN Address: [address] [place] [address]
--- OUTSIDE RECORDS SUMMARY | 2023-11-16 17:18 | XMS_ITS | Continuity of Care Document ---
Author Organization [facility] Address [address] [place] [address]- Care Team Providers Care Icd 9 Coder Name Role Phone Lorraine Zendejas MD Primary Care Physician Encounter [facility] Date(s): 11/25/21 - 12/29/[address] [address]- Attending Physician: Not on Staff, Attending MD Referring Physician: Franco ARELLANO, Yara Dillard Allergies, Adverse Reactions, Alerts Substance Reaction Severity Status sulfADIAZINE Unknown Active oxyCODONE Active Immunizations Given and Recorded Vaccine Date Status Refusal Reason influenza virus vaccine, inactivated 06/06/21 Sarmad rded [...] SARS-CoV-2 (COVID-19) mRNA-1273 vaccine 12/15/20 R ecorded tetanus/diphtheria/pertussis, acel(Tdap) 02/12/19 Given tetanus/diphtheria/pertussis, acel(Tdap) 05/08/17 [...] 5 Refills, Maintenance, 11/25/21 15:15:00 EDT, Aerosol, [facility] #[id number], Partial fill upon patient request if the prescription is for a schedule II opioid drug., 2 puffs Inhalation 2 times a d... Start Date: 11/25/21 Status: Ordered aspirin 81 mg oral delayed release tablet 2 tablet = 162 mg, By Mouth, Daily, start at 12 weeks, 09/11/21, # 90 tablet, 0 Refills, Maintenance,08/16/21 13:37:00 EST, CR Tablet, [facility] #[id number], Partial fill upon patient request ifthe prescription is for a schedule II opioid drug.,... Start Date: 08/16/21 Status: Ordered Benadryl 25 mg oral capsule 2 capsule = 50 mg, By Mouth, Daily at bedtime, PRN Pain , Moderate, # 100 capsule, 0 Refills, Maintenance, 11/08/21 15:02:00 EDT, Capsule, [facility] #[id number], Partial fill upon patient request if the prescription is for a schedule II opioid d... Start Date: 11/08/21 Status: Ordered clotrimazole 1% vaginal cream with applicator 1 application, Vaginally, Daily at bedtime, Apply vaginally each night for 1 week., # 45 Gm, 0 Refills, Maintenance, 10/12/21 14:02:00 EST, Cream, [facility] #[id number], Partial fill upon patient request if the prescription is for a schedule II... Start Date: 10/12/21 Status: Ordered Lidoderm 5% film 1 patch, Topically, Daily, (remove patch(s) after 12 hours), # 30 patch, 5 Refills, Maintenance, 11/25/21 15:09:00 EDT, [facility] #[id number], Partial fill upon patient request if the prescription is for a schedule II opioid drug., 1 patch Topic... Start Date: 11/25/21 Status: Ordered MiraLax oral powder for reconstitution = 17 Gm, By Mouth, Daily, dissolve in water before taking, # 527 Gm, 0 Refills, Maintenance, 08/16/21 13:56:00 EST, REC Powder, [facility] #[id number], Partial fill upon patient request if the prescription is for a schedule II opioid drug., 17 Gm... Start Date: 08/16/21 Status: Ordered Multivitamins with Folic Acid 1 mg oral tablet 1 tablet, By Mouth, Daily, # 90 tablet, 3 Refills, Maintenance, 09/16/21 15:48:00 EST, Tablet, [facility] #[id number], Partial fill upon patient request if the prescription is for a schedule II opioid drug., 1 tablet By Mouth Daily, 157, cm, 0... Start Date: 09/16/21 Status: Ordered Multivitamins with Vitamin B Complex, Vitamin C, Minerals and L- Methylfolate oral capsule 1 capsule, By Mouth, Daily, # 30 capsule, 11 Refills, Maintenance, 08/05/21 17:50:00 EST, Capsule, [facility] #[id number], Partial fill upon patient request if the prescription is for a scheduleII opioid drug., 1 capsule By Mouth Daily, 157, cm,... Start Date: 08/05/21 Status: Ordered ProAir HFA 90 mcg/inh inhalation aerosol with adapter 2, puffs, Inhalation, Every 4 hours, PRN, # 8.5 Gm, Refills 2, Tot. Refills 2, Maintenance, 11/25/21 15:15:00 EDT, Aerosol, Route to Pharmacy Electronically, [id number], [facility] #[id number], 154, cm, 11/25/21 14:53:00... Start Date: 11/25/21 Status: Ordered Reglan 5 mg oral tablet 2 tablet = 10 mg, By Mouth, Once, # 28 tablet, 0 Refills, Soft Stop, 11/08/21 15:03:00 EDT, Tablet,[facility] #[id number], Partial fill upon patient request if the [...]
--- OUTSIDE RECORDS SUMMARY | 2023-11-16 17:18 | XMS_ITS | Continuity of Care Document ---
Author Organization [facility] Address [address] [place] [address]- Care Team Providers Care Powder Carrier Name Role Phone Aashish IBARRA, Lorraine Primary Care Physician Encounter [facility] Date(s): 05/04/22 - 06/03/[address] [address]- Allergies, Adverse Reactions, Alerts Substance Reaction Severity [...] 0 Refills, Maintenance, 05/17/22 15:05:00 EDT, Capsule, [facility] #[id number], Partial fill upon patient request if the prescription is for a schedule II opioid . Start Date: 05/17/22 Status: Ordered Advair HFA 115 mcg / 21 mcg 2 puffs, Inhalation, 2 times a day, # 1 each, 5 Refills, Maintenance, 05/03/22 16:02:00 EDT, Aerosol, [facility] #[id number], Partial fill upon patient request if the prescription is for a schedule II opioid drug., 2 puffs Inhalation 2 times a da... Start Date: 05/03/22 Stop Date: 10/30/22 Status: Ordered albuterol CFC free 90 mcg/inh inhalation aerosol 2, puffs, Inhalation, Every 6 hours, PRN, # 8.5 Gm, Refills 11, Tot. Refills 11, Maintenance, 05/03/22 11:45:00 EDT, Aerosol, Route to Pharmacy Electronically, [id number], [facility] #[id number], dispense brand preferred... Start Date: 05/03/22 Stop Date: 04/28/23 Status: Ordered clotrimazole 1% topical cream 1 application, Topically, 2 times a day, # 12 Gm, 0 Refills, Maintenance, 04/11/22 4:42:00 EDT, Cream, [facility] #[id number], Partial fill upon patient request if the prescription is for a schedule II opioid drug., 1 application Topically 2 time... Start Date: 04/11/22 Status: Ordered Colace sodium 100 mg oral capsule 100 mg, 1, capsule, By Mouth, 2 times a day, PRN, # 20 capsule, Refills 0, Tot. Refills 0, Maintenance, for constipation, 03/18/22 15:18:00 EDT, Route to Pharmacy Electronically, [facility]#[id number], Partial fill upon patient request if the pr... Start Date: 03/18/22 Status: Ordered Dilaudid 2 mg oral tablet 1 tablet = 2 mg, By Mouth, Every 4 hours, # 10 tablet, 0 Refills, Maintenance, 03/18/22 18:17:00 EDT, Tablet, [facility] #[id number], Partial fill upon patient request if the prescription is fora schedule II opioid drug., 154, cm, 03/18/22 11:26... Start Date: 03/18/22 Status: Ordered ferrous sulfate 325 mg oral tablet 1 tablet = 325 mg, By Mouth, Daily, # 30 tablet, 3 Refills, Maintenance, 01/05/22 12:46:00 EDT, Tablet, [facility] #[id number], Partial fill upon patient request if the prescription is for a schedule II opioid drug., 154, cm, 01/04/22 13:56:00 ED... Start Date: 01/05/22 Status: Ordered ibuprofen 600 mg oral tablet 600 mg, 1, tablet, By Mouth, Every 6 hours, # 50 tablet, Refills 0, Tot. Refills 0, Maintenance, 03/18/22 15:18:00 EDT, Route to Pharmacy Electronically, [facility] #[id number], Partial fill upon patient request if the prescription is for a sched... Start Date: 03/18/22 Status: Ordered magnesium oxide 400 mg oral tablet 1 tablet = 400 mg, By Mouth, Daily, for 30 days, to treat and prevent headaches, # 30 tablet, 3 Refills, Acute 06/22/22 19:25:00 EST, 02/22/22 19:25:00 EDT, Tablet, [facility] #[id number], Partial fill upon patient request if the prescription is... Start Date: 02/22/22 Stop Date: 06/22/22 Status: Ordered MiraLax oral powder for reconstitution = 17 Gm, By Mouth, Daily, dissolve in water before taking, # 527 Gm, 0 Refills, Maintenance, 08/16/21 13:56:00 EST, REC Powder, [facility] #[id number], Partial fill upon patient request if the prescription is for a schedule II opioid drug., 17 Gm... Start Date: 08/16/21 Status: Ordered Multivitamins with Folic Acid 1 mg oral tablet 1 tablet, By Mouth, Daily, # 90 tablet, 3 Refills, Maintenance, 05/03/22 12:05:00 EDT, Tablet, [facility] #[id number], Partial fill upon patient request if the prescription is for a schedule II opioid drug., 1 tablet By Mouth Daily,x90 days, 157,... Start Date: 05/03/22 Stop Date: 04/28/23 Status: Ordered simethicone 125 mg oral tablet, chewable 1 tablet = 125 mg, Chew, 4 times a day, # 48 tablet, 0 Refills, Maintenance, 03/18/22 15:18:00 EDT,Chew Tablet, [facility] #[id number], Partial fill upon patient request if the [...] 0 Refills, Maintenance, 03/18/22 15:18:00 EDT, Cream, [facility] #[id number], Partial fill upon patient request if the [...] Personnel Name: Lorraine Zendejas MD Address: Address: [address] [place] [address]
--- OUTSIDE RECORDS SUMMARY | 2023-11-16 17:18 | XMS_ITS | Continuity of Care Document ---
Author Organization [facility] Address [address] [place] [address]- Care Team Providers Care Health Unit Clerk Name Role Phone Aashish IBARRA, Lorraine Primary Care Physician [phone] Encounter [facility] Date(s): 08/16/23 - 09/15/[address] [address]- Attending Physician: AdmRoque vasquez Admitting Physician: Admtr, Ar8 Referring Physician: Admtr, Ar8 Allergies, Adverse Reactions, [...] 08/15/22 15:08:00 EST, Route to Pharmacy Electronically, [facility] #[id number], Partial fill upon patient request if the prescription... Start Date: 08/15/22 Status: Ordered Advair HFA 115 mcg / 21 mcg 2 puffs, Inhalation, 2 times a day, # 1 each, 5 Refills, Maintenance, 05/03/22 16:02:00 EDT, Aerosol, [email or web address] #[id number], Partial fill upon patient request if the prescription is for a schedule II opioid drug., 2 puffs Inhalation 2 times a da... Start Date: 05/03/22 Stop Date: 10/30/22 Status: Ordered albuterol 0.083% inhalation solution 3 mL = 2.5 mg, Inhalation, Every 6 hours, PRN for wheezing, # 25 each, 0 Refills, Maintenance, 05/29/23 20:07:00 EDT, Solution, [email or web address] #[id number], Partial fill upon patient request if the prescription is for a schedule II opioid drug., 156,... Start Date: 05/29/23 Status: Ordered cetirizine 5 mg oral tablet = 5 mg, By Mouth, Daily, # 30 tablet, 0 Refills, Maintenance, 11/17/22 10:48:00 EDT, [facility] #[id number], Partial fill upon patient request if the prescription is for a schedule II opioid drug., 156, cm, 11/17/22 8:44:00 EDT, Height, 8... Start Date: 11/17/22 Status: Ordered Depakote 250 mg oral enteric coated tablet 1 tablet = 250 mg, By Mouth, 2 times a day, # 60 tablet, 3 Refills, Maintenance, 02/28/23 16:39:00 EDT, [facility] #[id number], Partial fill upon patient request if the prescription is for a schedule II opioid drug., 155, cm, 02/28/23 11:38:00 ED... Start Date: 02/28/23 Status: Ordered dicyclomine 20 mg oral tablet 1 tablet = 20 mg, By Mouth, 4 times a day, 30 to 60 minutes before meals, # 28 tablet, 4 Refills, Maintenance, 04/05/23 11:18:00 EDT, [facility] #[id number], Partial fill upon patient request if the prescription is for a schedule II opioi... Start Date: 04/05/23 Stop Date: 05/10/23 Status: Ordered ibuprofen 400 mg oral tablet 400 mg, 1, tablet, By Mouth, Every 4 hours, PRN, # 60 tablet, Refills 0, Tot. Refills 0, Maintenance, for pain, 11/17/22 10:49:00 EDT, Route to Pharmacy Electronically, [email or web address] #[id number], Partial fill upon patient request if the prescription... Start Date: 11/17/22 Status: Ordered MiraLax oral powder for reconstitution = 17 Gm, By Mouth, Daily, dissolve in water before taking, # 527 Gm, 0 Refills, Maintenance, 11/17/22 10:47:00 EDT, REC Powder, [email or web address] #[id number], Partial fill upon patient request if the prescription is for a schedule II opioid drug., 17 Gm... Start Date: 11/17/22 Status: Ordered Nexplanon 68 mg subcutaneous implant 1 each = 68 mg, Subcutaneous Infusion, Once, Left arm, placed 07/23/2023 Lot #[id number], # 1 each, 0 Refills, Maintenance, 07/23/23 16:11:00 EST, Partial fill upon patient request if the prescription is for a schedule II opioid drug. Start Date: 07/23/23 Status: Ordered ondansetron 4 mg oral tablet, disintegrating 1 tablet = 4 mg, By Mouth, Every 8 hours, PRN Nausea & Vomiting, # 10 tablet, 0 Refills, Maintenance, 09/15/23 11:34:00 EST, Tablet, [facility] #[id number], Partial fill upon patient requestif the prescription [...] Refills, Soft Stop, 01/25/23 10:30:00 EDT, Tablet, [email or web address] #0... Start Date: 01/25/23 Status: Ordered [...] Sex Female Laboratory * Event Display: Non Lab Results Authored Date: Patient Care team information Care Team Personnel Name: Vivi Bailey NP Position: [facility] PCO Associate Professional Member Role: Lifetime Consulting Provider Address: Address: [address] [place] [address]- Name: Gauri Pascual Position: [facility] RN Member Role: Primary Care Nurse Name: Lorraine Zendejas MD Position: [facility] Physician - Primary Care Member Role: PCP Address: Address: [address] [place] [address]- Care Team Related Persons Name: KENDAL PHELPS Address: [address] [place] [address] Name: RELL PHELPS Address: [address] [address] Name: RUSLAN ABREU Address: [address] Address: [address] [place] [address] [place] Name: NAY DEL ANGEL Address: [address] [place] [address] Name: PRAVIN PARKER Address: [address] [place] [address] Name: ADITHYA HAYDEN Address: [address] Address: [address] [place] [address] [place] Name: PRAVIN HAYDEN Address: [address] [place] [address]
--- OUTSIDE RECORDS SUMMARY | 2023-11-16 17:18 | XMS_ITS | Continuity of Care Document ---
Author Organization [facility] Address [address] [place] [address]- Care Team Providers Care Substation Inspector Name Role Phone Aashish IBARRA, Lorraine Primary Care Physician [facility] [address] [address]- Attending Physician: Not on Staff, Attending MD [...] 0 Refills, Maintenance, 03/18/22 15:18:00 EDT, Capsule, [facility][id number], Partial fill upon patient request if the prescription is for a schedule II opioid . Start Date: 03/18/22 Status: Ordered Advair HFA 115 mcg / 21 mcg 2 puffs, Inhalation, 2 times a day, # 60 each, 5 Refills, Maintenance, 11/25/21 15:15:00 EDT, Aerosol, [facility] #[id number], Partial fill upon patient request if the prescription is for a schedule II opioid drug., 2 puffs Inhalation 2 times a d... Start Date: 11/25/21 Status: Ordered Aspirin Low Dose 81 mg oral delayed release tablet 2 tablet, By Mouth, Daily, START AT 12 WEEKS, 09/11/21, # 90 tablet, 3 Refills, [facility] #[id number], 154, cm, 01/04/22 13:56:00 EDT, Height, 86.5, kg, 10/29/21 21:50:00 EDT, Dry Weight Start Date: 01/05/22 Status: Ordered cephalexin monohydrate 500 mg oral capsule 1 capsule = 500 mg, By Mouth, 4 times a day, for 10 days, # 40 capsule, 0 Refills, Acute 04/21/22 4:40:00 EDT, 04/11/22 4:40:00 EDT, Capsule, [facility] #[id number], Partial fill upon patient request if the prescription is for a schedule II opioi... Start Date: 04/11/22 Stop Date: 04/21/22 Status: Ordered clotrimazole 1% topical cream 1 application, Topically, 2 times a day, # 12 Gm, 0 Refills, Maintenance, 04/11/22 4:42:00 EDT, Cream, [facility] #[id number], Partial fill upon patient request if the prescription is for a schedule II opioid drug., 1 application Topically 2 time... Start Date: 04/11/22 Status: Ordered Colace sodium 100 mg oral capsule 100 mg, 1, capsule, By Mouth, 2 times a day, PRN, # 20 capsule, Refills 0, Tot. Refills 0, Maintenance, for constipation, 03/18/22 15:18:00 EDT, Route to Pharmacy Electronically, [facility]#[id number], Partial fill upon patient request if the pr... Start Date: 03/18/22 Status: Ordered Dilaudid 2 mg oral tablet 1 tablet = 2 mg, By Mouth, Every 4 hours, # 10 tablet, 0 Refills, Maintenance, 03/18/22 18:17:00 EDT, Tablet, [facility] #[id number], Partial fill upon patient request if the prescription is fora schedule II opioid drug., 154, cm, 03/18/22 11:26... Start Date: 03/18/22 Status: Ordered ferrous sulfate 325 mg oral tablet 1 tablet = 325 mg, By Mouth, Daily, # 30 tablet, 3 Refills, Maintenance, 01/05/22 12:46:00 EDT, Tablet, [facility] #[id number], Partial fill upon patient request if the prescription is for a schedule II opioid drug., 154, cm, 01/04/22 13:56:00 ED... Start Date: 01/05/22 Status: Ordered ibuprofen 600 mg oral tablet 600 mg, 1, tablet, By Mouth, Every 6 hours, # 50 tablet, Refills 0, Tot. Refills 0, Maintenance, 03/18/22 15:18:00 EDT, Route to Pharmacy Electronically, [facility] #[id number], Partial fill upon patient request if the prescription is for a sched... Start Date: 03/18/22 Status: Ordered magnesium oxide 400 mg oral tablet 1 tablet = 400 mg, By Mouth, Daily, for 30 days, to treat and prevent headaches, # 30 tablet, 3 Refills, Acute 06/22/22 19:25:00 EST, 02/22/22 19:25:00 EDT, Tablet, [facility] #[id number], Partial fill upon patient request if the prescription is... Start Date: 02/22/22 Stop Date: 06/22/22 Status: Ordered MiraLax oral powder for reconstitution = 17 Gm, By Mouth, Daily, dissolve in water before taking, # 527 Gm, 0 Refills, Maintenance, 08/16/21 13:56:00 EST, REC Powder, [facility] #[id number], Partial fill upon patient request if the prescription is for a schedule II opioid drug., 17 Gm... Start Date: 08/16/21 Status: Ordered Multivitamins with Folic Acid 1 mg oral tablet 1 tablet, By Mouth, Daily, # 90 tablet, 3 Refills, Maintenance, 09/16/21 15:48:00 EST, Tablet, [facility] #[id number], Partial fill upon patient request if the prescription is for a schedule II opioid drug., 1 tablet By Mouth Daily, 157, cm, 020... Start Date: 09/16/21 Status: Ordered ProAir HFA 90 mcg/inh inhalation aerosol with adapter 2, puffs, Inhalation, Every 4 hours, PRN, # 8.5 Gm, Refills 2, Tot. Refills 2, Maintenance, 11/25/21 15:15:00 EDT, Aerosol, Route to Pharmacy Electronically, [id number], [facility] #[id number], 154, cm, 11/25/21 14:53:00... Start Date: 11/25/21 Status: Ordered simethicone 125 mg oral tablet, chewable 1 tablet = 125 mg, Chew, 4 times a day, # 48 tablet, 0 Refills, Maintenance, 03/18/22 15:18:00 EDT,Chew Tablet, [facility] #[id number], Partial fill upon patient request if the [...] 0 Refills, Maintenance, 03/18/22 15:18:00 EDT, Cream, [facility] #[id number], Partial fill upon patient request if the [...] Team Personnel Name: Lorraine Zendejas MD Address: [address] [place] [phone]- [place]
--- OUTSIDE RECORDS SUMMARY | 2023-11-16 17:18 | XMS_ITS | Continuity of Care Document ---
Author Organization [facility] Address Unknown Care Team Providers Care Tax Manager Cpa Name Role Phone Lorraine Zendejas MD Primary Care Physician [place] [facility] [place] 07/[place]/21 [facility] Attending Physician: Dena Hylton MD Admitting Physician: [...] 5 Refills, Maintenance, 11/16/20 15:34:00 EDT, Aerosol, [facility] #[id number], Partial fill upon patient request if the prescription is for a schedule II opioid drug., 2 puffs Inhalation 2 times a d... Start Date: 11/16/20 Status: Ordered cyclobenzaprine 10 mg oral tablet 1, tablet, By Mouth, 3 times a day, PRN, # 45 tablet, Refills 0, Tot. Refills 0, Acute, NEEDED FOR SPASM, 08/25/20 9:53:00 EST, Route to Pharmacy Electronically, [facility] #[id number], 157, cm, 06/08/20 15:12:00 EST, Height, 84.5, kg, ... Start Date: 08/25/20 Status: Ordered Lidoderm 5% film 1 patch, Topically, Daily, (remove patch(s) after 12 hours), # 30 patch, 0 Refills, Maintenance, 10/12/20 11:07:00 EST, [facility] #[id number], Partial fill upon patient request if the prescription is for a schedule II opioid drug., 1 patch Topic... Start Date: 10/12/20 Status: Ordered ProAir HFA 90 mcg/inh inhalation aerosol with adapter 2, puffs, Inhalation, Every 4 hours, PRN, # 8.5 Gm, Refills 5, Tot. Refills 5, Maintenance, 01/06/21 8:08:00 EDT, Aerosol, Route to Pharmacy Electronically, [id number], [facility] #[id number], 157, cm, 11/17/20 9:48:00 E... Start Date: [...] tablet, 0 Refills, Maintenance, 12/13/20 14:28:00 EDT, [facility] #[id number], 157, cm, 11/17/20 9:48:00 EDT, Height, 84.5, kg... Start Date: 12/13/20 Status: Ordered Xulane 150 mcg-35 mcg/24 hr transdermal film, extended release 1 patch, Topically, Every week, # 3 each, 11 Refills, Maintenance, 03/29/21 11:42:00 EDT, [facility] #[id number], 1 patch Topically Every week,x7 days, 157, [...]
--- OUTSIDE RECORDS SUMMARY | 2023-11-16 17:19 | XMS_ITS | Continuity of Care Document ---
Author Organization [facility] Address [address] [place] [address]- Care Team Providers Care Zoology Technical Officer Name Role Phone Aashish IBARRA, Lorraine Primary Care Physician [facility]counter [facility] Date(s): 05/29/22 - 06/29/[address] [address]- Attending Physician: Not on Staff, Attending MD [...] Papillomavirus Vaccine 01/29/14 Given Human Papillomavirus Vaccine 2/6/12 Given Human Papillomavirus Vaccine 11/23/08 Given Meningococcal [...] 0 Refills, Maintenance, 05/17/22 15:05:00 EDT, Capsule, [facility] #[id number], Partial fill upon patient request if the prescription is for a schedule II opioid . Start Date: 05/17/22 Status: Ordered Advair HFA 115 mcg / 21 mcg 2 puffs, Inhalation, 2 times a day, # 1 each, 5 Refills, Maintenance, 05/03/22 16:02:00 EDT, Aerosol, [facility] #[id number], Partial fill upon patient request if the prescription is for a schedule II opioid drug., 2 puffs Inhalation 2 times a da... Start Date: 05/03/22 Stop Date: 10/30/22 Status: Ordered albuterol CFC free 90 mcg/inh inhalation aerosol 2, puffs, Inhalation, Every 6 hours, PRN, # 8.5 Gm, Refills 11, Tot. Refills 11, Maintenance, 05/03/22 11:45:00 EDT, Aerosol, Route to Pharmacy Electronically, [id number], [facility] #[id number], dispense brand preferred... Start Date: 05/03/22 Stop Date: 04/28/23 Status: Ordered clotrimazole 1% topical cream 1 application, Topically, 2 times a day, # 12 Gm, 0 Refills, Maintenance, 04/11/22 4:42:00 EDT, Cream, [facility] #[id number], Partial fill upon patient request if the prescription is for a schedule II opioid drug., 1 application Topically 2 time... Start Date: 04/11/22 Status: Ordered Colace sodium 100 mg oral capsule 100 mg, 1, capsule, By Mouth, 2 times a day, PRN, # 20 capsule, Refills 0, Tot. Refills 0, Maintenance, for constipation, 03/18/22 15:18:00 EDT, Route to Pharmacy Electronically, [facility]#[id number], Partial fill upon patient request if the pr... Start Date: 03/18/22 Status: Ordered Dilaudid 2 mg oral tablet 1 tablet = 2 mg, By Mouth, Every 4 hours, # 10 tablet, 0 Refills, Maintenance, 03/18/22 18:17:00 EDT, Tablet, [facility] #[id number], Partial fill upon patient request if the prescription is fora schedule II opioid drug., 154, cm, 03/18/22 11:26... Start Date: 03/18/22 Status: Ordered ferrous sulfate 325 mg oral tablet 1 tablet = 325 mg, By Mouth, Daily, # 30 tablet, 3 Refills, Maintenance, 01/05/22 12:46:00 EDT, Tablet, [facility] #[id number], Partial fill upon patient request if the prescription is for a schedule II opioid drug., 154, cm, 01/04/22 13:56:00 ED... Start Date: 01/05/22 Status: Ordered ibuprofen 600 mg oral tablet 600 mg, 1, tablet, By Mouth, Every 6 hours, # 50 tablet, Refills 0, Tot. Refills 0, Maintenance, 03/18/22 15:18:00 EDT, Route to Pharmacy Electronically, [facility] #[id number], Partial fill upon patient request if the prescription is for a sched... Start Date: 03/18/22 Status: Ordered MiraLax oral powder for reconstitution = 17 Gm, By Mouth, Daily, dissolve in water before taking, # 527 Gm, 0 Refills, Maintenance, 08/16/21 13:56:00 EST, REC Powder, [facility] #[id number], Partial fill upon patient request if the prescription is for a schedule II opioid drug., 17 Gm... Start Date: 08/16/21 Status: Ordered Multivitamins with Folic Acid 1 mg oral tablet 1 tablet, By Mouth, Daily, # 90 tablet, 3 Refills, Maintenance, 05/03/22 12:05:00 EDT, Tablet, [facility] #[id number], Partial fill upon patient request if the prescription is for a schedule II opioid drug., 1 tablet By Mouth Daily,x90 days, 157,... Start Date: 05/03/22 Stop Date: 04/28/23 Status: Ordered simethicone 125 mg oral tablet, chewable 1 tablet = 125 mg, Chew, 4 times a day, # 48 tablet, 0 Refills, Maintenance, 03/18/22 15:18:00 EDT,Chew Tablet, [facility] #[id number], Partial fill upon patient request if the [...] 0 Refills, Maintenance, 03/18/22 15:18:00 EDT, Cream, [facility] #[id number], Partial fill upon patient request if the [...] on: 02/15/22 Sex Patient Care team information Care Team Personnel Name: Gauri Pascual Position: [facility] RN Member Role: Primary Care Nurse Name: Lorraine Zendejas MD Position: [facility] Primary Care Physician Member Role: PCP Address: Address: [address] [place] [address]- Care Team Related Persons Name: RELL PHELPS Address: [address] [address] Name: RUSLAN ABREU Address: [address] Address: [place] [address] [address] [place] Name: NAY DEL ANGEL Address: [place] [address] [place] [address] Name: PRAVIN PARKER Address: home [address] [place] [address] Name: ADITHYA HAYDEN Address: [address] Address: [address] [address] [place] Name: PRAVIN HAYDEN Address: [address] [place] [address]
--- OUTSIDE RECORDS SUMMARY | 2023-11-16 17:19 | XMS_ITS | Continuity of Care Document ---
Author Organization [facility] Address [address], [address] [place] [address]- Care Team Providers Care Dermatology Physician Assistant Name Role Phone Lorraine Zendejas MD Primary Care Physician Encounter [facility] Date(s): 10/13/21 - 11/12/21 [facility] [address] [place], [place] [address] Allergies, Adverse Reactions, Alerts Substance Reaction [...] 5 Refills, Maintenance, 11/16/20 15:34:00 EDT, Aerosol, [facility] #[id number], Partial fill upon patient request if the prescription is for a schedule II opioid drug., 2 puffs Inhalation 2 times a d... Start Date: 11/16/20 Status: Ordered aspirin 81 mg oral delayed release tablet 2 tablet = 162 mg, By Mouth, Daily, start at 12 weeks, 09/11/21, # 90 tablet, 0 Refills, Maintenance,08/16/21 13:37:00 EST, CR Tablet, [facility] #[id number], Partial fill upon patient request ifthe prescription is for a schedule II opioid drug.,... Start Date: 08/16/21 Status: Ordered Benadryl 25 mg oral capsule 2 capsule = 50 mg, By Mouth, Daily at bedtime, PRN Pain , Moderate, # 100 capsule, 0 Refills, Maintenance, 11/08/21 15:02:00 EDT, Capsule, [facility] #[id number], Partial fill upon patient request if the prescription is for a schedule II opioid d... Start Date: 11/08/21 Status: Ordered clotrimazole 1% vaginal cream with applicator 1 application, Vaginally, Daily at bedtime, Apply vaginally each night for 1 week., # 45 Gm, 0 Refills, Maintenance, 10/12/21 14:02:00 EST, Cream, [facility] #[id number], Partial fill upon patient request if the prescription is for a schedule II... Start Date: 10/12/21 Status: Ordered Lidoderm 5% film 1 patch, Topically, Daily, (remove patch(s) after 12 hours), # 30 patch, 0 Refills, Maintenance, 10/12/20 11:07:00 EST, [facility] #[id number], Partial fill upon patient request if the prescription is for a schedule II opioid drug., 1 patch Topic... Start Date: 10/12/20 Status: Ordered MiraLax oral powder for reconstitution = 17 Gm, By Mouth, Daily, dissolve in water before taking, # 527 Gm, 0 Refills, Maintenance, 08/16/21 13:56:00 EST, REC Powder, [facility] #[id number], Partial fill upon patient request if the prescription is for a schedule II opioid drug., 17 Gm... Start Date: 08/16/21 Status: Ordered Multivitamins with Folic Acid 1 mg oral tablet 1 tablet, By Mouth, Daily, # 90 tablet, 3 Refills, Maintenance, 09/16/21 15:48:00 EST, Tablet, [facility] #[id number], Partial fill upon patient request if the prescription is for a schedule II opioid drug., 1 tablet By Mouth Daily, 157, cm, 0... Start Date: 09/16/21 Status: Ordered Multivitamins with Vitamin B Complex, Vitamin C, Minerals and L- Methylfolate oral capsule 1 capsule, By Mouth, Daily, # 30 capsule, 11 Refills, Maintenance, 08/05/21 17:50:00 EST, Capsule, [facility] #[id number], Partial fill upon patient request if the prescription is for a scheduleII opioid drug., 1 capsule By Mouth Daily, 157, cm,... Start Date: 08/05/21 Status: Ordered ProAir HFA 90 mcg/inh inhalation aerosol with adapter 2, puffs, Inhalation, Every 4 hours, PRN, # 8.5 Gm, Refills 5, Tot. Refills 5, Maintenance, 01/06/21 8:08:00 EDT, Aerosol, Route to Pharmacy Electronically, [id number], [facility] #[id number], 157, cm, 11/17/20 9:48:00 E... Start Date: 01/06/21 Status: Ordered Reglan 5 mg oral tablet 2 tablet = 10 mg, By Mouth, Once, # 28 tablet, 0 Refills, Soft Stop, 11/08/21 15:03:00 EDT, Tablet,[facility] #[id number], Partial fill upon patient request if the [...]
--- OUTSIDE RECORDS SUMMARY | 2023-11-16 17:19 | XMS_ITS | Continuity of Care Document ---
Author Organization [facility] Address [address] [place] [address]- Care Team Providers Care Mobile Security Architect Name Role Phone Aashish IBARRA, Lorraine Primary Care Physician [facility]counter [facility] Date(s): 02/07/22 - 03/09/22 [facility] [address] [address]- Allergies, Adverse Reactions, Alerts Substance Reaction Severity [...] 5 Refills, Maintenance, 11/25/21 15:15:00 EDT, Aerosol, [facility] #[id number], Partial fill upon patient request if the prescription is for a schedule II opioid drug., 2 puffs Inhalation 2 times a d... Start Date: 11/25/21 Status: Ordered Aspirin Low Dose 81 mg oral delayed release tablet 2 tablet, By Mouth, Daily, START AT 12 WEEKS, 09/11/21, # 90 tablet, 3 Refills, [facility] #[id number], 154, cm, 01/04/22 13:56:00 EDT, Height, 86.5, kg, 10/29/21 21:50:00 EDT, Dry Weight Start Date: 01/05/22 Status: Ordered Benadryl 25 mg oral capsule 1 capsule = 25 mg, By Mouth, Every 6 hours, 0 Refills, Maintenance, 02/24/22 14:43:00 EDT, Partial fill upon patient request if the prescription is for a schedule II opioid drug. Start Date: 02/24/22 Status: Ordered ferrous sulfate 325 mg oral tablet 1 tablet = 325 mg, By Mouth, Daily, # 30 tablet, 3 Refills, Maintenance, 01/05/22 12:46:00 EDT, Tablet, [facility] #[id number], Partial fill upon patient request if the prescription is for a schedule II opioid drug., 154, cm, 01/04/22 13:56:00 ED... Start Date: 01/05/22 Status: Ordered Lidoderm 5% film 1 patch, Topically, Daily, (remove patch(s) after 12 hours), # 30 patch, 5 Refills, Maintenance, 11/25/21 15:09:00 EDT, [facility] #[id number], Partial fill upon patient request if the prescription is for a schedule II opioid drug., 1 patch Topic... Start Date: 11/25/21 Status: Ordered magnesium oxide 400 mg oral tablet 1 tablet = 400 mg, By Mouth, Daily, for 30 days, to treat and prevent headaches, # 30 tablet, 3 Refills, Acute 06/22/22 19:25:00 EST, 02/22/22 19:25:00 EDT, Tablet, [facility] #[id number], Partial fill upon patient request if the prescription is... Start Date: 02/22/22 Stop Date: 06/22/22 Status: Ordered MiraLax oral powder for reconstitution = 17 Gm, By Mouth, Daily, dissolve in water before taking, # 527 Gm, 0 Refills, Maintenance, 08/16/21 13:56:00 EST, REC Powder, [facility] #[id number], Partial fill upon patient request if the prescription is for a schedule II opioid drug., 17 Gm... Start Date: 08/16/21 Status: Ordered Multivitamins with Folic Acid 1 mg oral tablet 1 tablet, By Mouth, Daily, # 90 tablet, 3 Refills, Maintenance, 09/16/21 15:48:00 EST, Tablet, [facility] #[id number], Partial fill upon patient request if the prescription is for a schedule II opioid drug., 1 tablet By Mouth Daily, 157, cm, 02/0... Start Date: 09/16/21 Status: Ordered ProAir HFA 90 mcg/inh inhalation aerosol with adapter 2, puffs, Inhalation, Every 4 hours, PRN, # 8.5 Gm, Refills 2, Tot. Refills 2, Maintenance, 11/25/21 15:15:00 EDT, Aerosol, Route to Pharmacy Electronically, [id number], [facility] #[id number], 154, cm, 11/25/21 14:53:00... Start Date: 11/25/21 Status: Ordered Reglan 10 mg oral tablet 1 tablet = 10 mg, By Mouth, 3 times a day before meals and bedtime, 0 Refills, Maintenance, 02/24/22 14:51:00 EDT, Partial fill upon patient request if the prescription is for a schedule II opioid drug. Start Date: 02/24/22 Status: Ordered Spacer for asthma Spacer for [...] 1 Refills, Maintenance, 01/08/22 14:18:00 EDT, Capsule, [facility] #[id number], Partial fill upon patient request if the [...]
--- OUTSIDE RECORDS SUMMARY | 2023-11-16 17:19 | XMS_ITS | Continuity of Care Document ---
Author Organization [facility] Address [address] [place] [address]- Care Team Providers Care Floor Sander Name Role Phone Aashish IBARRA, Lorraine Primary Care Physician Encounter [facility] Date(s): 11/06/22 - 12/06/[address] [address]- Allergies, Adverse Reactions, Alerts Substance Reaction Severity [...] 08/15/22 15:08:00 EST, Route to Pharmacy Electronically, [facility] #[id number], Partial fill upon patient request if the prescription... Start Date: 08/15/22 Status: Ordered Advair HFA 115 mcg / 21 mcg 2 puffs, Inhalation, 2 times a day, # 1 each, 5 Refills, Maintenance, 05/03/22 16:02:00 EDT, Aerosol, [facility] #[id number], Partial fill upon patient request if the prescription is for a schedule II opioid drug., 2 puffs Inhalation 2 times a da... Start Date: 05/03/22 Stop Date: 10/30/22 Status: Ordered albuterol 0.083% inhalation solution 3 mL = 2.5 mg, Inhalation, Every 6 hours, PRN Wheezing/Shortness of Breath, # 60 each, 1 Refills, Maintenance, 11/09/22 13:41:00 EDT, Solution, [facility] #[id number], Partial fill upon patient request if the prescription is for a schedule II opi... Start Date: 11/09/22 Status: Ordered albuterol CFC free 90 mcg/inh inhalation aerosol 2, puffs, Inhalation, Every 6 hours, PRN, for 30 days, # 8.5 Gm, Refills 11, Tot. Refills 11, Hard Stop 04/28/23 11:45:00 EDT, 05/03/22 11:45:00 EDT, Aerosol, Route to Pharmacy Electronically, [id number], Locality... Start Date: 05/03/22 Stop Date: 04/28/23 Status: Ordered cetirizine 5 mg oral tablet = 5 mg, By Mouth, Daily, # 30 tablet, 0 Refills, Maintenance, 11/17/22 10:48:00 EDT, Tablet, [facility] #[id number], Partial fill upon patient request if the prescription is for a schedule II opioid drug., 156, cm, 11/17/22 8:44:00 EDT, Height, 8... Start Date: 11/17/22 Status: Ordered ibuprofen 400 mg oral tablet 400 mg, 1, tablet, By Mouth, Every 4 hours, PRN, # 60 tablet, Refills 0, Tot. Refills 0, Maintenance, for pain, 11/17/22 10:49:00 EDT, Route to Pharmacy Electronically, [facility] #[id number], Partial fill upon patient request if the prescription... Start Date: 11/17/22 Status: Ordered lidocaine 1.8% topical film 1 patch, Topically, Daily, leave on up to 12 hours, # 30 each, 0 Refills, Maintenance, 11/17/22 10:47:00 EDT, Film, [facility] #[id number], Partial fill upon patient request if the prescription is for a schedule II opioid drug., 1 patch Topically... Start Date: 11/17/22 Status: Ordered MiraLax oral powder for reconstitution = 17 Gm, By Mouth, Daily, dissolve in water before taking, # 527 Gm, 0 Refills, Maintenance, 11/17/22 10:47:00 EDT, REC Powder, [facility] #[id number], Partial fill upon patient request if the [...] 2 Refills, Maintenance, 11/07/22 17:30:00 EDT, Tablet, [facility] #[id number], Partial fill upon patient request if the [...] Care Team Personnel Name: Gauri Pascual Position: [facility] RN Member Role: Primary Care Nurse Name: Lorraine Zendejas MD Position: [facility] Primary Care Physician Member Role: PCP Address: Address: [address] [place] [address]- Care Team Related Persons Name: LENINRELL Address: home [address] [address] Name: RUSLAN ABREU Address: [id number] Address: home [address] [address] [place] Name: NAY DEL ANGEL Address: [place] [address] [place] [address] Name: PRAVIN PARKER Address: home [address] [place] [address] Name: ADITHYA HAYDEN Address: [address] Address: home [address] [address] [place] Name: PRAVIN HAYDEN Address: home [address] [place] [address]
--- OUTSIDE RECORDS SUMMARY | 2023-11-16 17:19 | XMS_ITS | Continuity of Care Document ---
Author Organization [facility] Address [address] [place] [address]- Care Team Providers Care Clerk Funeral Detail Name Role Phone Aashish IBARRA, Lorraine Primary Care Physician Encounter [facility] Date(s): 06/14/21 - 07/14/[address] [address]- Attending Physician: AdmRoque vasquez Admitting Physician: Admtr, [...] 5 Refills, Maintenance, 11/16/20 15:34:00 EDT, Aerosol, [facility] #[id number], Partial fill upon patient request if the prescription is for a schedule II opioid drug., 2 puffs Inhalation 2 times a d... Start Date: 11/16/20 Status: Ordered cyclobenzaprine 10 mg oral tablet 1, tablet, By Mouth, 3 times a day, PRN, # 45 tablet, Refills 0, Tot. Refills 0, Acute, NEEDED FOR SPASM, 08/25/20 9:53:00 EST, Route to Pharmacy Electronically, [facility] #[id number], 157, cm, 06/08/20 15:12:00 EST, Height, 84.5, kg, ... Start Date: 08/25/20 Status: Ordered Lidoderm 5% film 1 patch, Topically, Daily, (remove patch(s) after 12 hours), # 30 patch, 0 Refills, Maintenance, 10/12/20 11:07:00 EST, [facility] #[id number], Partial fill upon patient request if the prescription is for a schedule II opioid drug., 1 patch Topic... Start Date: 10/12/20 Status: Ordered ProAir HFA 90 mcg/inh inhalation aerosol with adapter 2, puffs, Inhalation, Every 4 hours, PRN, # 8.5 Gm, Refills 5, Tot. Refills 5, Maintenance, 01/06/21 8:08:00 EDT, Aerosol, Route to Pharmacy Electronically, [id number], [facility] #[id number], 157, cm, 11/17/20 9:48:00 E... Start Date: [...] tablet, 0 Refills, Maintenance, 12/13/20 14:28:00 EDT, [facility] #[id number], 157, cm, 11/17/20 9:48:00 EDT, Height, 84.5, kg... Start Date: 12/13/20 Status: Ordered Xulane 150 mcg-35 mcg/24 hr transdermal film, extended release 1 patch, Topically, Every week, # 3 each, 11 Refills, Maintenance, 03/29/21 11:42:00 EDT, [facility] #[id number], 1 patch Topically Every week,x7 days, 157, [...]
--- OUTSIDE RECORDS SUMMARY | 2023-11-16 17:19 | XMS_ITS | Continuity of Care Document ---
Author Organization [facility] Address [address] [place] [address]- Care Team Providers Care Almond Blancher Hand Name Role Phone Lorraine Zendejas MD Primary Care Physician Encounter [facility] Date(s): 01/08/22 - 01/08/[address] [address] Discharge Disposition: A-D/C Home Attending Physician: Barrett Alejandro MD Admitting Physician: Barrett Alejandro MD Referring Physician: Barrett Alejandro MD Allergies, Adverse Reactions, Alerts Substance Reaction [...] 60 each, 5 Refills, Maintenance, 11/25/21 15:15:00 [facility] #[id number], Partial fill upon patient request if the prescription is for a schedule II opioid drug., 2 puffs Inhalation 2 times a d... Start Date: 11/25/21 Status: Ordered Aspirin Low Dose 81 mg oral delayed release tablet 2 tablet, By Mouth, Daily, START AT 12 WEEKS, 09/11/21, # 90 tablet, 3 Refills, [facility] #[id number], 154, cm, 01/04/22 13:56:00 EDT, Height, 86.5, kg, 10/29/21 21:50:00 EDT, Dry Weight Start Date: 01/05/22 Status: Ordered Benadryl 25 mg oral capsule 2 capsule = 50 mg, By Mouth, Daily at bedtime, PRN Pain , Moderate, # 100 capsule, 0 Refills, Maintenance, 11/08/21 15:02:00 EDT, Capsule, [facility] #[id number], Partial fill upon patient request if the prescription is for a schedule II opioid d... Start Date: 11/08/21 Status: Ordered ferrous sulfate 325 mg oral tablet 1 tablet = 325 mg, By Mouth, Daily, # 30 tablet, 3 Refills, Maintenance, 01/05/22 12:46:00 EDT, Tablet, [facility] #[id number], Partial fill upon patient request if the prescription is for a schedule II opioid drug., 154, cm, 01/04/22 13:56:00 ED... Start Date: 01/05/22 Status: Ordered Lidoderm 5% film 1 patch, Topically, Daily, (remove patch(s) after 12 hours), # 30 patch, 5 Refills, Maintenance, 11/25/21 15:09:00 EDT, [facility] #[id number], Partial fill upon patient request if the prescription is for a schedule II opioid drug., 1 patch Topic... Start Date: 11/25/21 Status: Ordered MiraLax oral powder for reconstitution = 17 Gm, By Mouth, Daily, dissolve in water before taking, # 527 Gm, 0 Refills, Maintenance, 08/16/21 13:56:00 EST, REC Powder, [facility] #[id number], Partial fill upon patient request if the prescription is for a schedule II opioid drug., 17 Gm... Start Date: 08/16/21 Status: Ordered Multivitamins with Folic Acid 1 mg oral tablet 1 tablet, By Mouth, Daily, # 90 tablet, 3 Refills, Maintenance, 09/16/21 15:48:00 EST, Tablet, [facility] #[id number], Partial fill upon patient request if the prescription is for a schedule II opioid drug., 1 tablet By Mouth Daily, 157, cm, 020... Start Date: 09/16/21 Status: Ordered ProAir HFA 90 mcg/inh inhalation aerosol with adapter 2, puffs, Inhalation, Every 4 hours, PRN, # 8.5 Gm, Refills 2, Tot. Refills 2, Maintenance, 11/25/21 15:15:00 EDT, Aerosol, Route to Pharmacy Electronically, [id number], [facility] #[id number], 154, cm, 11/25/21 14:53:00... Start Date: 11/25/21 [...] 1 Refills, Maintenance, 01/08/22 14:18:00 EDT, Capsule, [facility] #[id number], Partial fill upon patient request if the prescrip... Start Date: 01/08/22 Status: Ordered Tylenol 325 mg oral tablet 975 mg, Tablet, By Mouth, Once, PRN for Pain , Severe, Routine, 01/08/22 8:54:00 EDT Start Date: 01/08/22 Stop Date: 01/08/22 Status: Completed Tylenol 325 mg oral tablet See Instructions, PRN, 2-3 tablets By Mouth Every 4-6 hours as needed for back pain, # 50 tablet, Refills 1, Tot. Refills 1, Maintenance, for pain, 11/25/21 15:08:00 EDT, Instructions Replace Required Details, Route to Pharmacy Electronically, ANN... Start Date: 11/25/21 Status: Ordered Problem List [...] 3 Oxygen Saturation [94-100 %] 100 % (01/08/22 10:12 AM) 99 % (01/08/22 9:21 AM) 99 % (01/08/22 7:51 AM) Blood Pressure [90-138/55-84 mm Hg] 104/65mm Hg (01/08/22 7:37 AM) Respiratory Rate [16-30 br/min] 16 br/min (01/08/22 9:25 AM) 18 br/min (01/08/22 7:37 AM) Mode of Delivery (Oxygen) Room air (01/08/22 7:37 AM) Blood pressure sites Arm, right (01/08/22 7:37 AM) Social History Social History Type Response Smoking Status Never smoker; Tobacc o user in household: No entered on: 12/05/16 Sex Female
--- OUTSIDE RECORDS SUMMARY | 2023-11-16 17:19 | XMS_ITS | Continuity of Care Document ---
Author Organization [facility] Address [address] [place] [address]- Care Team Providers Care Catalyst Operator Gasoline Name Role Phone Lorraine Zendejas MD Primary Care Physician Encounter [facility] Date(s): 09/03/23 - 09/10/23 [facility] [address] [address] Attending Physician: Alise Cooper MD Admitting Physician: Alise Cooper MD Referring Physician: Lorraine Zendejas MD Allergies, Adverse [...] 08/15/22 15:08:00 EST, Route to Pharmacy Electronically, [facility][id number], Partial fill upon patient request if the prescription... Start Date: 08/15/22 Status: Ordered Advair HFA 115 mcg / 21 mcg 2 puffs, Inhalation, 2 times a day, # 1 each, 5 Refills, Maintenance, 05/03/22 16:02:00 EDT, Aerosol, [facility] #[id number], Partial fill upon patient request if the prescription is for a schedule II opioid drug., 2 puffs Inhalation 2 times a da... Start Date: 05/03/22 Stop Date: 10/30/22 Status: Ordered albuterol 0.083% inhalation solution 3 mL = 2.5 mg, Inhalation, Every 6 hours, PRN for wheezing, # 25 each, 0 Refills, Maintenance, 05/29/23 20:07:00 EDT, Solution, [facility] #[id number], Partial fill upon patient request if the prescription is for a schedule II opioid drug., 156,... Start Date: 05/29/23 Status: Ordered cetirizine 5 mg oral tablet = 5 mg, By Mouth, Daily, # 30 tablet, 0 Refills, Maintenance, 11/17/22 10:48:00 EDT, Tablet, [facility] #[id number], Partial fill upon patient request if the prescription is for a schedule II opioid drug., 156, cm, 11/17/22 8:44:00 EDT, Height, 8... Start Date: 11/17/22 Status: Ordered Depakote 250 mg oral enteric coated tablet 1 tablet = 250 mg, By Mouth, 2 times a day, # 60 tablet, 3 Refills, Maintenance, 02/28/23 16:39:00 EDT, [facility] #[id number], Partial fill upon patient request if the prescription is for a schedule II opioid drug., 155, cm, 02/28/23 11:38:00 ED... Start Date: 02/28/23 Status: Ordered dicyclomine 20 mg oral tablet 1 tablet = 20 mg, By Mouth, 4 times a day, 30 to 60 minutes before meals, # 28 tablet, 4 Refills, Maintenance, 04/05/23 11:18:00 EDT, Tablet, [facility] #[id number], Partial fill upon patient request if the prescription is for a schedule II opioi... Start Date: 04/05/23 Stop Date: 05/10/23 Status: Ordered ibuprofen 400 mg oral tablet 400 mg, 1, tablet, By Mouth, Every 4 hours, PRN, # 60 tablet, Refills 0, Tot. Refills 0, Maintenance, for pain, 11/17/22 10:49:00 EDT, Route to Pharmacy Electronically, [facility] #[id number], Partial fill upon patient request if the prescription... Start Date: 11/17/22 Status: Ordered MiraLax oral powder for reconstitution = 17 Gm, By Mouth, Daily, dissolve in water before taking, # 527 Gm, 0 Refills, Maintenance, 11/17/22 10:47:00 EDT, REC Powder, [facility] #[id number], Partial fill upon patient request if the prescription is for a schedule II opioid drug., 17 Gm... Start Date: 11/17/22 Status: Ordered Nexplanon 68 mg subcutaneous implant 1 each = 68 mg, Subcutaneous Infusion, Once, Left arm, placed 07/23/2023 Lot #[id number], # 1 each, 0 Refills, Maintenance, 07/23/23 [...] Refills, Soft Stop, 01/25/23 10:30:00 EDT, Tablet, [facility] #0... Start Date: 01/25/23 Status: Ordered Problem [...] Team Personnel Name: Vivi Bailey NP Position: [facility] PCO Associate Professional Member Role: Lifetime Consulting Provider Address: Address: [address] [place] [address]- Name: Gauri Pascual Position: [facility] RN Member Role: Primary Care Nurse Name: Lorraine Zendejas MD Position: [facility] Physician - Primary Care Member Role: PCP Address: Address: [address] [place] [address]- Care Team Related Persons Name: KENDAL PHELPS Address: home [address] [place] [address] Name: RELL PHELPS Address: [address] [address] Name: RUSLAN ABREU Address: [id number] Address: home [address] [place] [address] Name: NAY DEL ANGEL Address: home [address] [place] [address] Name: PRAVIN PARKER Address: home [address] [place] [address] Name: ADITHYA HAYDEN Address: [address] Address: home [address] [place] [address] [place] Name: PRAVIN HAYDEN Address: home [address] [place] [address]
--- OUTSIDE RECORDS SUMMARY | 2023-11-16 17:19 | XMS_ITS | Continuity of Care Document ---
Author Organization [facility] Address [address] [place] [address]- Care Team Providers Care Pacu Nurse Name Role Phone Aashish IBARRA, Lorraine Primary Care Physician Encounter [facility] Date(s): 01/25/23 - 02/24/[address] [address] Attending Physician: Admtr, Roque Admitting Physician: Admtr, Roque Referring Physician: [...] 08/15/22 15:08:00 EST, Route to Pharmacy Electronically, [email or web address] #[id number], Partial fill upon patient request if the prescription... Start Date: 08/15/22 Status: Ordered Advair HFA 115 mcg / 21 mcg 2 puffs, Inhalation, 2 times a day, # 1 each, 5 Refills, Maintenance, 05/03/22 16:02:00 EDT, Aerosol, [facility] #[id number], Partial fill upon patient request if the prescription is for a schedule II opioid drug., 2 puffs Inhalation 2 times a da... Start Date: 05/03/22 Stop Date: 10/30/22 Status: Ordered albuterol 0.083% inhalation solution 3 mL = 2.5 mg, Inhalation, Every 6 hours, PRN Wheezing/Shortness of Breath, # 60 each, 1 Refills, Maintenance, 11/09/22 13:41:00 EDT, Solution, [facility] #[id number], Partial fill upon patient request if the prescription is for a schedule II opi... Start Date: 11/09/22 Status: Ordered albuterol CFC free 90 mcg/inh inhalation aerosol 2, puffs, Inhalation, Every 6 hours, PRN, for 30 days, # 8.5 Gm, Refills 11, Tot. Refills 11, Hard Stop 04/28/23 11:45:00 EDT, 05/03/22 11:45:00 EDT, Aerosol, Route to Pharmacy Electronically, [id number], [facility]... Start Date: 05/03/22 Stop Date: 04/28/23 Status: Ordered cetirizine 5 mg oral tablet = 5 mg, By Mouth, Daily, # 30 tablet, 0 Refills, Maintenance, 11/17/22 10:48:00 EDT, Tablet, [facility] #[id number], Partial fill upon patient request if the prescription is for a schedule II opioid drug., 156, cm, 11/17/22 8:44:00 EDT, Height, 8... Start Date: 11/17/22 Status: Ordered ibuprofen 400 mg oral tablet 400 mg, 1, tablet, By Mouth, Every 4 hours, PRN, # 60 tablet, Refills 0, Tot. Refills 0, Maintenance, for pain, 11/17/22 10:49:00 EDT, Route to Pharmacy Electronically, [facility] #[id number], Partial fill upon patient request if the prescription... Start Date: 11/17/22 Status: Ordered lidocaine 1.8% topical film 1 patch, Topically, Daily, leave on up to 12 hours, # 30 each, 0 Refills, Maintenance, 11/17/22 10:47:00 EDT, [facility] #[id number], Partial fill upon patient request if the prescription is for a schedule II opioid drug., 1 patch Topically... Start Date: 11/17/22 Status: Ordered metroNIDAZOLE 0.75% topical gel 1 application, Topically, Daily at bedtime, use vaginal applicator to insert vaginally nightly for 5 nights, # 45 Gm, 0 Refills, Maintenance, 02/14/23 16:28:00 EDT, [facility] #[id number], Partial fill upon patient request if the prescriptio... Start Date: 02/14/23 Stop Date: 02/19/23 Status: Ordered metroNIDAZOLE 500 mg oral tablet 1 tablet = 500 mg, By Mouth, Every 12 hours, # 28 tablet, 0 Refills, Maintenance, 01/25/23 16:14:00EDT, [facility] #[id number], Partial fill upon patient request if the prescription is for a schedule II opioid drug., 156, cm, 01/25/23 15... Start Date: 01/25/23 Stop Date: 02/08/23 Status: Ordered MiraLax oral powder for reconstitution = 17 Gm, By Mouth, Daily, dissolve in water before taking, # 527 Gm, 0 Refills, Maintenance, 11/17/22 10:47:00 EDT, [facility][id number], Partial fill upon patient request if the [...] Refills, Soft Stop, 01/25/23 10:30:00 EDT, Tablet, [facility] #[facility]... Start Date: 01/25/23 Status: [...] Name: Lorraine Zendejas MD Position: [facility] Physician - Primary Care Member Role: PCP Address: Address: [address] [place] [address]- Care Team Related Persons Name: RELL PHELPS Address: home [address] [address] Name: RUSLAN ABREU Address: [address] Address: home [address] [place] [address] [place] Name: NAY DEL ANGEL Address: home [address] [place] [address] Name: PRAVIN PARKER Address: home [address] [place] [address] Name: ADITHYA HAYDEN Address: [address] Address: home [address] [address] [place] Name: PRAVIN HAYDEN Address: home [address] [place] [address]
--- OUTSIDE RECORDS SUMMARY | 2023-11-16 17:19 | XMS_ITS | Continuity of Care Document ---
Author Organization [facility] Address [address] [place] [address]- Care Team Providers Care Ethnic Studies Professor Name Role Phone Aashish IBARRA, Lorraine Primary Care Physician Encounter [facility] Date(s): 11/09/22 - 12/09/[address] [address]- Allergies, Adverse Reactions, Alerts Substance Reaction Severity [...] 08/15/22 15:08:00 EST, Route to Pharmacy Electronically, [facility] #[id number], Partial fill upon patient request if the prescription... Start Date: 08/15/22 Status: Ordered Advair HFA 115 mcg / 21 mcg 2 puffs, Inhalation, 2 times a day, # 1 each, 5 Refills, Maintenance, 05/03/22 16:02:00 EDT, Aerosol, [facility] #[id number], Partial fill upon patient request if the prescription is for a schedule II opioid drug., 2 puffs Inhalation 2 times a da... Start Date: 05/03/22 Stop Date: 10/30/22 Status: Ordered albuterol 0.083% inhalation solution 3 mL = 2.5 mg, Inhalation, Every 6 hours, PRN Wheezing/Shortness of Breath, # 60 each, 1 Refills, Maintenance, 11/09/22 13:41:00 EDT, Solution, [facility] #[id number], Partial fill upon patient request if the prescription is for a schedule II opi... Start Date: 11/09/22 Status: Ordered albuterol CFC free 90 mcg/inh inhalation aerosol 2, puffs, Inhalation, Every 6 hours, PRN, for 30 days, # 8.5 Gm, Refills 11, Tot. Refills 11, Hard Stop 04/28/23 11:45:00 EDT, 05/03/22 11:45:00 EDT, Aerosol, Route to Pharmacy Electronically, [id number], [facility]... Start Date: 05/03/22 Stop Date: 04/28/23 Status: Ordered cetirizine 5 mg oral tablet = 5 mg, By Mouth, Daily, # 30 tablet, 0 Refills, Maintenance, 11/17/22 10:48:00 EDT, Tablet, [facility] #[id number], Partial fill upon patient request if the prescription is for a schedule II opioid drug., 156, cm, 11/17/22 8:44:00 EDT, Height, 8... Start Date: 11/17/22 Status: Ordered ibuprofen 400 mg oral tablet 400 mg, 1, tablet, By Mouth, Every 4 hours, PRN, # 60 tablet, Refills 0, Tot. Refills 0, Maintenance, for pain, 11/17/22 10:49:00 EDT, Route to Pharmacy Electronically, [facility] #[id number], Partial fill upon patient request if the prescription... Start Date: 11/17/22 Status: Ordered lidocaine 1.8% topical film 1 patch, Topically, Daily, leave on up to 12 hours, # 30 each, 0 Refills, Maintenance, 11/17/22 10:47:00 EDT, Film, [facility] #[id number], Partial fill upon patient request if the prescription is for a schedule II opioid drug., 1 patch Topically... Start Date: 11/17/22 Status: Ordered MiraLax oral powder for reconstitution = 17 Gm, By Mouth, Daily, dissolve in water before taking, # 527 Gm, 0 Refills, Maintenance, 11/17/22 10:47:00 EDT, REC Powder, [facility] #[id number], Partial fill upon patient request if the [...] 2 Refills, Maintenance, 11/07/22 17:30:00 EDT, Tablet, [facility] #[id number], Partial fill upon patient request [...] Care Team Personnel Name: Gauri Pascual Position: [facility] RN Member Role: Primary Care Nurse Name: Lorraine Zendejas MD Position: [facility] Primary Care Physician Member Role: PCP Address: Address: [address] [place] [address]- Care Team Related Persons Name: LENINRELL Address: home [address] [address] Name: RUSLAN ABREU Address: [id number] Address: [address] [address] [place] Name: NAY DEL ANGEL Address: [place] [address] [place] [address] Name: PRAVIN PARKER Address: home [address] [place] [address] Name: ADITHYA HAYDEN Address: [address] Address: home [address] [address] [place] Name: PRAVIN HAYDEN Address: home [address] [place] [address]
--- OUTSIDE RECORDS SUMMARY | 2023-11-16 17:19 | XMS_ITS | Continuity of Care Document ---
Author Organization [facility] Address [address] [place] [address]- Care Team Providers Care Visual Arts Teacher Name Role Phone Aashish IBARRA, Lorraine Primary Care Physician Encounter [facility] Date(s): 09/21/21 - 10/21/[address] [address]- Allergies, Adverse Reactions, Alerts Substance Reaction Severity [...] 5 Refills, Maintenance, 11/16/20 15:34:00 EDT, Aerosol, [facility] #[id number], Partial fill upon patient request if the prescription is for a schedule II opioid drug., 2 puffs Inhalation 2 times a d... Start Date: 11/16/20 Status: Ordered aspirin 81 mg oral delayed release tablet 2 tablet = 162 mg, By Mouth, Daily, start at 12 weeks, 09/11/21, # 90 tablet, 0 Refills, Maintenance,08/16/21 13:37:00 EST, CR Tablet, [facility] #[id number], Partial fill upon patient request ifthe prescription is for a schedule II opioid drug.,... Start Date: 08/16/21 Status: Ordered Benadryl 25 mg oral capsule 2 capsule = 50 mg, By Mouth, Daily at bedtime, PRN Pain , Moderate, # 100 capsule, 0 Refills, Maintenance, 10/04/21 2:02:00 EST, Capsule, [facility] #[id number], Partial fill upon patient request if the prescription is for a schedule II opioid dr... Start Date: 10/04/21 Status: Ordered clotrimazole 1% vaginal cream with applicator 1 application, Vaginally, Daily at bedtime, Apply vaginally each night for 1 week., # 45 Gm, 0 Refills, Maintenance, 10/12/21 14:02:00 EST, Cream, [facility] #[id number], Partial fill upon patient request if the prescription is for a schedule II... Start Date: 10/12/21 Status: Ordered Lidoderm 5% film 1 patch, Topically, Daily, (remove patch(s) after 12 hours), # 30 patch, 0 Refills, Maintenance, 10/12/20 11:07:00 EST, [facility] #[id number], Partial fill upon patient request if the prescription is for a schedule II opioid drug., 1 patch Topic... Start Date: 10/12/20 Status: Ordered MiraLax oral powder for reconstitution = 17 Gm, By Mouth, Daily, dissolve in water before taking, # 527 Gm, 0 Refills, Maintenance, 08/16/21 13:56:00 EST, REC Powder, [facility] #[id number], Partial fill upon patient request if the prescription is for a schedule II opioid drug., 17 Gm... Start Date: 08/16/21 Status: Ordered Multivitamins with Folic Acid 1 mg oral tablet 1 tablet, By Mouth, Daily, # 90 tablet, 3 Refills, Maintenance, 09/16/21 15:48:00 EST, Tablet, [facility] #[id number], Partial fill upon patient request if the prescription is for a schedule II opioid drug., 1 tablet By Mouth Daily, 157, cm, 020... Start Date: 09/16/21 Status: Ordered Multivitamins with Vitamin B Complex, Vitamin C, Minerals and L- Methylfolate oral capsule 1 capsule, By Mouth, Daily, # 30 capsule, 11 Refills, Maintenance, 08/05/21 17:50:00 EST, Capsule, [facility] #[id number], Partial fill upon patient request if the prescription is for a scheduleII opioid drug., 1 capsule By Mouth Daily, 157, cm,... Start Date: 08/05/21 Status: Ordered ProAir HFA 90 mcg/inh inhalation aerosol with adapter 2, puffs, Inhalation, Every 4 hours, PRN, # 8.5 Gm, Refills 5, Tot. Refills 5, Maintenance, 01/06/21 8:08:00 EDT, Aerosol, Route to Pharmacy Electronically, [id number], [facility] #[id number], 157, cm, 11/17/20 9:48:00 E... Start Date: 01/06/21 Status: Ordered Reglan 5 mg oral tablet 2 tablet = 10 mg, By Mouth, Once, # 28 tablet, 0 Refills, Soft Stop, 10/04/21 2:02:00 EST, Tablet, [facility] #[id number], Partial fill upon patient request if the [...]
--- OUTSIDE RECORDS SUMMARY | 2023-11-16 17:19 | XMS_ITS | Continuity of Care Document ---
Author Organization [facility] ter Address [address] [place] [address]- Care Team Providers Care Air Pollution Specialist Name Role Phone Lorraine Zendejas MD Primary Care Physician [phone] Encounter [facility] Date(s): 09/03/23 - 09/03/[address] [address]- Encounter Diagnosis Gastritis, acute(Final) - 09/03/23 Discharge Disposition: A-D/C Home Attending Physician: Shavon Henning MD Admitting Physician: Shavon Henning MD Referring Physician: Not on Staff, Referring [...] 08/15/22 15:08:00 EST, Route to Pharmacy Electronically, [facility] #[id number], Partial fill upon patient request if the prescription... Start Date: 08/15/22 Status: Ordered Advair HFA 115 mcg / 21 mcg 2 puffs, Inhalation, 2 times a day, # 1 each, 5 Refills, Maintenance, 05/03/22 16:02:00 EDT, Aerosol, [facility] #[id number], Partial fill upon patient request if the prescription is for a schedule II opioid drug., 2 puffs Inhalation 2 times a da... Start Date: 05/03/22 Stop Date: 10/30/22 Status: Ordered albuterol 0.083% inhalation solution 3 mL = 2.5 mg, Inhalation, Every 6 hours, PRN for wheezing, # 25 each, 0 Refills, Maintenance, 05/29/23 20:07:00 EDT, Solution, [facility] #[id number], Partial fill upon patient request if the prescription is for a schedule II opioid drug., 156,... Start Date: 05/29/23 Status: Ordered aluminum hydroxide/magnesium hydroxide/simethicone 200 mg-200 mg-20 mg/5 mL oral suspension 10 mL, By Mouth, 4 times a day, PRN for control of stomach acid, for 7 days, # 180 mL, 0 Refills, Acute 09/10/23 15:29:00 EST, 09/03/23 15:29:00 EST, Suspension, [email or web address] #[id number], Partial fill upon patient request if the prescription is for... Start Date: 09/03/23 Stop Date: 09/10/23 Status: Ordered cetirizine 5 mg oral tablet = 5 mg, By Mouth, Daily, # 30 tablet, 0 Refills, Maintenance, 11/17/22 10:48:00 EDT, Tablet, [email or web address] #[id number], Partial fill upon patient request if the prescription is for a schedule II opioid drug., 156, cm, 11/17/22 8:44:00 EDT, Height, 8... Start Date: 11/17/22 Status: Ordered Depakote 250 mg oral enteric coated tablet 1 tablet = 250 mg, By Mouth, 2 times a day, # 60 tablet, 3 Refills, Maintenance, 02/28/23 16:39:00 EDT, [facility] #[id number], Partial fill upon patient request if the prescription is for a schedule II opioid drug., 155, cm, 02/28/23 11:38:00 ED... Start Date: 02/28/23 Status: Ordered dicyclomine 20 mg oral tablet 1 tablet = 20 mg, By Mouth, 4 times a day, 30 to 60 minutes before meals, # 28 tablet, 4 Refills, Maintenance, 04/05/23 11:18:00 EDT, Tablet, [facility] #[id number], Partial fill upon patient request if the prescription is for a schedule II opioi... Start Date: 04/05/23 Stop Date: 05/10/23 Status: Ordered ibuprofen 400 mg oral tablet 400 mg, 1, tablet, By Mouth, Every 4 hours, PRN, # 60 tablet, Refills 0, Tot. Refills 0, Maintenance, for pain, 11/17/22 10:49:00 EDT, Route to Pharmacy Electronically, [facility] #[id number], Partial fill upon patient request if the prescription... Start Date: 11/17/22 Status: Ordered MiraLax oral powder for reconstitution = 17 Gm, By Mouth, Daily, dissolve in water before taking, # 527 Gm, 0 Refills, Maintenance, 11/17/22 10:47:00 EDT, REC Powder, [facility] #[id number], Partial fill upon patient request if the prescription is for a schedule II opioid drug., 17 Gm... Start Date: 11/17/22 Status: Ordered Nexplanon 68 mg subcutaneous implant 1 each = 68 mg, Subcutaneous Infusion, Once, Left arm, placed 07/23/2023 Lot #[id number], # 1 each, 0 Refills, Maintenance, 07/23/23 16:11:00 EST, Partial fill upon patient request if the prescription is for a schedule II opioid drug. Start Date: 07/23/23 Status: Ordered ondansetron 4 mg oral tablet 1 tablet = 4 mg, By Mouth, Every 8 hours, PRN Nausea & Vomiting, for 3 days, # 10 tablet, 0 Refills, Acute 09/06/23 15:29:00 EST, 09/03/23 15:29:00 EST, Tablet, [facility] #[id number], Partial fill upon patient request if the prescription is for... Start Date: 09/03/23 Stop Date: 09/06/23 Status: Ordered Spacer for asthma Spacer for [...] Refills, Soft Stop, 01/25/23 10:30:00 EDT, Tablet, [facility] #0... Start Date: 01/25/23 Status: Ordered Problem List Condition Confirmation Course Effective Dates Status Health St atus Informant Anemia Confirmed Active Asthma Confirmed Active Depression Confirmed Active Headache Confirmed Active History of pre-eclampsia Confirmed Active Obese class II Confirmed Active Uterine scar from previous delivery Confirmed Active Results Radiology Reports * Exam Date Time Procedure Performing Provider Status 09/03/23 1:23 PM US RUQ Horn , Tanesha; Auth (V erified) Notes: (US RUQ) Reason For Exam: Abdominal Pain;Other: RESULT: US RUQ US RUQ Reason: Abdominal Pain; Clinical Question(s): Cholecystitis COMPARISON: Right upper quadrant ultrasound dated 05/25/2023; CT Abdomen and Pelvis 04/03/2023. FINDINGS: Liver: Diffusely echogenic parenchyma with focal sparing around the gallbladder. Curvilinear echogenic structure in the right lobe with posterior acoustic shadowing appears unchanged from prior exam and compatible with known calcification. No new or suspicious lesion. Smooth hepatic contour. Main portal vein patent with normal hepatopetal direction of flow. Gallbladder: No gallstones. Normal wall thickness. No pericholecystic fluid. Negative Borjas sign. Biliary Tree: No intrahepatic or extrahepatic bile duct dilation is identified. Common duct measures: 0.5 cm. Pancreas: Partially obscured by overlying bowel gas. No abnormality in the visualized portions of the pancreas. Right kidney: 10.9 cm in length. Normal parenchymal echotexture and thickness. No hydronephrosis, stone or mass. IMPRESSION: No sonographic evidence of cholelithiasis or acute cholecystitis. Echogenic liver likely representing hepatic steatosis. WSN: [id number] Ordering Physician: Chelsea Valdez Dictated By: Piper Stokes MD Dictated Date/Time: 09/03/23 2:12 pm Reviewed By: Piper Stokes MD Signed By: Piper Stokes MD Signed Date/Time: 09/03/23 2:12 pm Transcribed By: CHARLIE Transcribed Date/Time: 09/03/23 1:41 pm Vital Signs Most recent to oldest [Reference Range]: 1 2 3 Height 155 cm (09/03/23 11:41 AM) 155 cm (09/03/23 11:40 AM) 155 cm (09/03/23 10:48 AM) Weight 87.2 kg (09/03/23 11:41 AM) 87.2 kg (09/03/23 11:40 AM) 87.2 kg (09/03/23 10:48 AM) Oxygen Saturation [94-100 %] 100 % (09/03/23 3:39 PM) 100 % (09/03/23 11:40 AM) 98 % (09/03/23 10:48 AM) Pulse Rate [55-90 bpm] 69 bpm (09/03/23 3:39 PM) 63 bpm (09/03/23 11:40 AM) 70 bpm (09/03/23 10:48 AM) Body Mass Index [18.5-24.99 kg/m2] 36.3 kg/m2 *>HHI* (09/03/23 11:40 AM) 36.3 kg/m2 *>HHI* (09/03/23 10:48 AM) Blood Pressure [90-138/55-84 mm Hg] 121/63mm Hg (09/03/23 3:39 PM) 109/76mm Hg (09/03/23 11:40 AM) 133/91mm Hg (09/03/23 10:48 AM) Respiratory Rate [16-30 br/min] 16 br/min (09/03/23 3:39 PM) 15 br/min *L* (09/03/23 11:40 AM) 18 br/min (09/03/23 10:48 AM) Temperature [96.8-100.4 DegF] 98.1 DegF (09/03/23 3:39 PM) 98.2 DegF (09/03/23 11:40 AM) 98.2 DegF (09/03/23 10:48 AM) Mode of Delivery (Oxygen) Room air (09/03/23 3:39 PM) Room air (09/03/23 11:40 AM) Room air (09/03/23 10:48 AM) Blood pressure sites Arm, left (09/03/23 10:48 AM) Temperature Route Oral (09/03/23 3:39 PM) Oral (09/03/23 11:40 AM) Oral (09/03/23 10:48 AM) Dry Weight 87.2 kg (09/03/23 11:41 AM) 87.2 kg (09/03/23 11:40 AM) 87.2 kg (09/03/23 10:48 AM) Social History Social History Type Response Smoking Status Never (less than 100 in lifetime) entered on: 02/15/22 Sex Female EKG study * Event Display: ECG 12-Lead Authored Date: Please click on pdf link to open report * Event Display: ECG 12-Lead Authored Date: Ventricular Rate: 71 BPM Atrial Rate: 71 BPM P-R Interval: 124 ms QRS Duration: 86 ms Q-T Interval: 404 ms QTC Calculation(Bazett): 439 ms P [place]: 42 degrees R [place]: 23 degrees T [place]: 11 degrees Normal sinus rhythm with sinus arrhythmia Normal ECG When compared with ECG of 28-FEB-2023 11:18, No significant change was found Confirmed by GAIL SOUSA ([id number]) on 09/03/2023 5:01:53 PM [place]: GAIL SOUSA Patient Care team information Care Team Personnel Name: Vivi Bailey NP Position: [facility] PCO Associate Professional Member Role: Lifetime Consulting Provider Address: Address: [address] [place] [address] Name: Gauri Pascual Position: [facility] RN Member Role: Primary Care Nurse Name: Lorraine Zendejas MD Position: [facility] Physician - Primary Care Member Role: PCP Address: Address: [address] [place] [address] Care Team Related Persons Name: LENIN, AMSHTEM Address: home [address] [place] [address] Name: LENIN RELL Address: [address] [address] Name: RUSLAN ABREU Address: [address] Address: home [address] [place] [address] [place] Name: NAY DEL ANGEL Address: home [address] [place] [address] Name: PRAVIN PARKER Address: home [address] [place] [address] Name: ADITHYA HAYDEN Address: [address] Address: home [address] [place] [address] [place] Name: PRAVIN HAYDEN Address: home [address] [place] [address]
--- OUTSIDE RECORDS SUMMARY | 2023-11-16 17:19 | XMS_ITS | Continuity of Care Document ---
Author Organization [facility] Address [address] [place] [address]- Care Team Providers Care Quartz Mounter Name Role Phone Aashish IBARRA, Lorraine Primary Care Physician Encounter [facility] R [id number] Date(s): 03/01/22 - 03/31/[address] [address]- Attending Physician: Roque Villela Admitting Physician: Roque [...] 0 Refills, Maintenance, 03/18/22 15:18:00 EDT, Capsule, [facility] #[id number], Partial fill upon patient request if the prescription is for a schedule II opioid . Start Date: 03/18/22 Status: Ordered Advair HFA 115 mcg / 21 mcg 2 puffs, Inhalation, 2 times a day, # 60 each, 5 Refills, Maintenance, 11/25/21 15:15:00 EDT, Aerosol, [facility] #[id number], Partial fill upon patient request if the prescription is for a schedule II opioid drug., 2 puffs Inhalation 2 times a d... Start Date: 11/25/21 Status: Ordered Aspirin Low Dose 81 mg oral delayed release tablet 2 tablet, By Mouth, Daily, START AT 12 WEEKS, 09/11/21, # 90 tablet, 3 Refills, [facility] #[id number], 154, cm, 01/04/22 13:56:00 EDT, Height, 86.5, kg, 10/29/21 21:50:00 EDT, Dry Weight Start Date: 01/05/22 Status: Ordered Colace sodium 100 mg oral capsule 100 mg, 1, capsule, By Mouth, 2 times a day, PRN, # 20 capsule, Refills 0, Tot. Refills 0, Maintenance, for constipation, 03/18/22 15:18:00 EDT, Route to Pharmacy Electronically, [facility]#[id number], Partial fill upon patient request if the pr... Start Date: 03/18/22 Status: Ordered Dilaudid 2 mg oral tablet 1 tablet = 2 mg, By Mouth, Every 4 hours, # 10 tablet, 0 Refills, Maintenance, 03/18/22 18:17:00 EDT, Tablet, [facility] #[id number], Partial fill upon patient request if the prescription is fora schedule II opioid drug., 154, cm, 03/18/22 11:26... Start Date: 03/18/22 Status: Ordered ferrous sulfate 325 mg oral tablet 1 tablet = 325 mg, By Mouth, Daily, # 30 tablet, 3 Refills, Maintenance, 01/05/22 12:46:00 EDT, Tablet, [facility] #[id number], Partial fill upon patient request if the prescription is for a schedule II opioid drug., 154, cm, 01/04/22 13:56:00 ED... Start Date: 01/05/22 Status: Ordered ibuprofen 600 mg oral tablet 600 mg, 1, tablet, By Mouth, Every 6 hours, # 50 tablet, Refills 0, Tot. Refills 0, Maintenance, 03/18/22 15:18:00 EDT, Route to Pharmacy Electronically, [facility] #[id number], Partial fill upon patient request if the prescription is for a sched... Start Date: 03/18/22 Status: Ordered magnesium oxide 400 mg oral tablet 1 tablet = 400 mg, By Mouth, Daily, for 30 days, to treat and prevent headaches, # 30 tablet, 3 Refills, Acute 06/22/22 19:25:00 EST, 02/22/22 19:25:00 EDT, Tablet, [facility] #[id number], Partial fill upon patient request if the prescription is... Start Date: 02/22/22 Stop Date: 06/22/22 Status: Ordered MiraLax oral powder for reconstitution = 17 Gm, By Mouth, Daily, dissolve in water before taking, # 527 Gm, 0 Refills, Maintenance, 08/16/21 13:56:00 EST, REC Powder, [facility] #[id number], Partial fill upon patient request if the prescription is for a schedule II opioid drug., 17 Gm... Start Date: 08/16/21 Status: Ordered Multivitamins with Folic Acid 1 mg oral tablet 1 tablet, By Mouth, Daily, # 90 tablet, 3 Refills, Maintenance, 09/16/21 15:48:00 EST, Tablet, [facility] #[id number], Partial fill upon patient request if the prescription is for a schedule II opioid drug., 1 tablet By Mouth Daily, 157, cm, 020... Start Date: 09/16/21 Status: Ordered ProAir HFA 90 mcg/inh inhalation aerosol with adapter 2, puffs, Inhalation, Every 4 hours, PRN, # 8.5 Gm, Refills 2, Tot. Refills 2, Maintenance, 11/25/21 15:15:00 EDT, Aerosol, Route to Pharmacy Electronically, [id number], [facility] #[id number], 154, cm, 11/25/21 14:53:00... Start Date: 11/25/21 Status: Ordered simethicone 125 mg oral tablet, chewable 1 tablet = 125 mg, Chew, 4 times a day, # 48 tablet, 0 Refills, Maintenance, 03/18/22 15:18:00 EDT,Chew Tablet, [facility] #[id number], Partial fill upon patient request if the [...] 0 Refills, Maintenance, 03/18/22 15:18:00 EDT, Cream, [facility] #[id number], Partial fill upon patient request if the [...] Team Personnel Name: Lorraine Zendejas MD Address: [address] [place] [address]
--- OUTSIDE RECORDS SUMMARY | 2023-11-16 17:19 | XMS_ITS | Continuity of Care Document ---
Author Organization [facility] ter Address [address] [place] [address]- Care Team Providers Care Vitamin Manager Name Role Phone Lorraine Zendejas MD Primary Care Physician [phone] Encounter [facility] Date(s): 01/05/21 - 02/10/[address] [address] Attending Physician: Mindy Cruz NP Admitting Physician: Mindy Cruz NP Referring Physician: Mindy Cruz NP Allergies, Adverse Reactions, Alerts Substance Reaction Severity [...] 5 Refills, Maintenance, 11/16/20 15:34:00 EDT, Aerosol, [facility] #[id number], Partial fill upon patient request if the prescription is for a schedule II opioid drug., 2 puffs Inhalation 2 times a d... Start Date: 11/16/20 Status: Ordered cyclobenzaprine 10 mg oral tablet 1, tablet, By Mouth, 3 times a day, PRN, # 45 tablet, Refills 0, Tot. Refills 0, Acute, NEEDED FOR SPASM, 08/25/20 9:53:00 EST, Route to Pharmacy Electronically, [facility] #[id number], 157, cm, 06/08/20 15:12:00 EST, Height, 84.5, kg, ... Start Date: 08/25/20 Status: Ordered Lidoderm 5% film 1 patch, Topically, Daily, (remove patch(s) after 12 hours), # 30 patch, 0 Refills, Maintenance, 10/12/20 11:07:00 EST, [facility] #[id number], Partial fill upon patient request if the prescription is for a schedule II opioid drug., 1 patch Topic... Start Date: 10/12/20 Status: Ordered ProAir HFA 90 mcg/inh inhalation aerosol with adapter 2, puffs, Inhalation, Every 4 hours, PRN, # 8.5 Gm, Refills 5, Tot. Refills 5, Maintenance, 01/06/21 8:08:00 EDT, Aerosol, Route to Pharmacy Electronically, [id number], [facility] #[id number], 157, cm, 11/17/20 9:48:00 E... Start Date: [...] tablet, 0 Refills, Maintenance, 12/13/20 14:28:00 EDT, [facility] #[id number], 157, cm, 11/17/20 9:48:00 EDT, Height, 84.5, kg... Start Date: 12/13/20 Status: Ordered Xulane 150 mcg-35 mcg/24 hr transdermal film, extended release 1 patch, Topically, Every week, # 3 each, 11 Refills, Maintenance, 05/26/20 10:54:00 EDT, [facility] #[id number], 1 patch Topically Every week,x7 days, 157, [...]
--- OUTSIDE RECORDS SUMMARY | 2023-11-16 17:19 | XMS_ITS | Continuity of Care Document ---
Author Organization [facility] Address [address] [place] [address]- Care Team Providers Care Project Management Intern Name Role Phone Lorraine Zendejas MD Primary Care Physician Encounter [facility] Date(s): 04/29/20 - 05/29/[address] [address]- [facility] Allergies, Adverse Reactions, Alerts Substance Reaction Severity [...] 5 Refills, Maintenance, 11/03/19 12:31:00 EDT, Aerosol, [facility] #[id number], 157, cm, 07/31/19 8:49:00 EST, Height, 84.5, kg, 04/29/19 4:4... Start Date: 11/03/19 Status: Ordered ProAir HFA 90 mcg/inh inhalation aerosol with adapter 2, puffs, Inhalation, Every 4 hours, PRN, # 8.5 Gm, Refills 5, Tot. Refills 5, Maintenance, 11/03/19 12:31:00 EDT, Aerosol, Route to Pharmacy Electronically, [id number], [facility] #[id number], 157, cm, 07/31/19 8:49:00... Start Date: 11/03/19 [...] # 18 tablet, 1 Refills, Soft Stop, [facility] #[id number], 157, cm, 07/31/19 8:49:00 EST, Height, 84.5, kg, 04/29/19 4:40:00 EDT, D... Start Date: 10/07/19 Status: Ordered Xulane 150 mcg-35 mcg/24 hr transdermal film, extended release 1 patch, Topically, Every week, # 3 each, 11 Refills, Maintenance, 05/26/20 10:54:00 EDT, [facility] #[id number], 1 patch Topically Every week,x7 days, 157, [...]
--- OUTSIDE RECORDS SUMMARY | 2023-11-16 17:19 | XMS_ITS | Continuity of Care Document ---
Author Organization [facility] ter Address [address] [place] [address]- Care Team Providers Care Youth Minister Name Role Phone Lorraine Zendejas MD Primary Care Physician Encounter [facility] Date(s): 09/10/22 - 09/10/[address] [address]- Discharge Disposition: A-D/C Walkout Attending Physician: Not on Staff, Attending MD Admitting Physician: Not on Staff, Admitting MD Referring Physician: Not on Staff, Referring [...] 08/15/22 15:08:00 EST, [id number], Partial fill upon patient request if the prescription... Start Date: 08/15/22 Status: Ordered Advair HFA 115 mcg / 21 mcg 2 puffs, Inhalation, 2 times a day, # 1 each, 5 Refills, Maintenance, 05/03/22 16:02:00 EDT, Aerosol, [facility] #[id number], Partial fill upon patient request if the prescription is for a schedule II opioid drug., 2 puffs Inhalation 2 times a da... Start Date: 05/03/22 Stop Date: 10/30/22 Status: Ordered albuterol CFC free 90 mcg/inh inhalation aerosol 2, puffs, Inhalation, Every 6 hours, PRN, # 8.5 Gm, Refills 11, Tot. Refills 11, Maintenance, 05/03/22 11:45:00 EDT, Aerosol, Route to Pharmacy Electronically, [id number], [facility] #[id number], dispense brand preferred... Start Date: 05/03/22 Stop Date: 04/28/23 Status: Ordered clotrimazole 1% topical cream 1 application, Topically, 2 times a day, # 12 Gm, 0 Refills, Maintenance, 04/11/22 4:42:00 EDT, Cream, [facility] #[id number], Partial fill upon patient request if the prescription is for a schedule II opioid drug., 1 application Topically 2 time... Start Date: 04/11/22 Status: Ordered Colace sodium 100 mg oral capsule 100 mg, 1, capsule, By Mouth, 2 times a day, PRN, # 20 capsule, Refills 0, Tot. Refills 0, Maintenance, for constipation, 03/18/22 15:18:00 EDT, Route to Pharmacy Electronically, [facility]#[id number], Partial fill upon patient request if the pr... Start Date: 03/18/22 Status: Ordered ferrous sulfate 325 mg oral tablet 1 tablet = 325 mg, By Mouth, Daily, # 30 tablet, 3 Refills, Maintenance, 01/05/22 12:46:00 EDT, Tablet, [facility] #[id number], Partial fill upon patient request if the prescription is for a schedule II opioid drug., 154, cm, 01/04/22 13:56:00 ED... Start Date: 01/05/22 Status: Ordered MiraLax oral powder for reconstitution = 17 Gm, By Mouth, Daily, dissolve in water before taking, # 527 Gm, 0 Refills, Maintenance, 08/16/21 13:56:00 EST, REC Powder, [facility] #[id number], Partial fill upon patient request if the prescription is for a schedule II opioid drug., 17 Gm... Start Date: 08/16/21 Status: Ordered Multivitamins with Folic Acid 1 mg oral tablet 1 tablet, By Mouth, Daily, # 90 tablet, 3 Refills, Maintenance, 05/03/22 12:05:00 EDT, Tablet, [facility] #[id number], Partial fill upon patient request if the prescription is for a schedule II opioid drug., 1 tablet By Mouth Daily,x90 days, 157,... Start Date: 05/03/22 Stop Date: 04/28/23 Status: Ordered simethicone 125 mg oral tablet, chewable 1 tablet = 125 mg, Chew, 4 times a day, # 48 tablet, 0 Refills, Maintenance, 03/18/22 15:18:00 EDT,Chew Tablet, [facility] #[id number], Partial fill upon patient request if the prescription is for a schedule II opioid drug., 154, cm, 03/18/22 11... Start Date: 03/18/22 Status: Ordered Spacer for asthma Spacer for asthma, See Instructions, # 1 units, Refills 0, Tot. Refills 0, Maintenance, Spacer for asthma, 10/30/18 11:47:08 EDT, Compound Start Date: 10/30/18 Status: Ordered Problem List Condition Confirmation Course Effective Dates Status [facility] Anemia Confirmed Active Asthma Confirmed Active COVID-19 1 Confirmed 08/15/22 Active COVID Confirmed Active Depression Confirmed Active Headache Confirmed Active History of pre-eclampsia Confirmed Active Obese class I Confirmed Active Uterine scar from previous delivery Confirmed Active 1Problem added by Discern Expert Vital Signs Most recent to oldest [Reference Range]: 1 2 3 Height 156 cm (09/10/22 12:30 AM) Weight 82 kg (09/10/22 12:30 AM) Oxygen Saturation [94-100 %] 100 % (09/10/22 6:03 AM) 98 % (09/10/22 3:10 AM) 99 % (09/10/22 12:30 AM) Pulse Rate [55-90 bpm] 101 bpm *H* (09/10/22 6:03 AM) 105 bpm *H* (09/10/22 3:10 AM) 101 bpm *H* (09/10/22 12:30 AM) Body Mass Index [18.5-24.99 kg/m2] 33.69 kg/m2 *>HHI* (09/10/22 12:30 AM) Blood Pressure [90-138/55-84 mm Hg] 122/64mm Hg (09/10/22 6:03 AM) 132/81mm Hg (09/10/22 3:10 AM) 135/88mm Hg (09/10/22 12:30 AM) Respiratory Rate [16-30 br/min] 19 br/min (09/10/22 12:30 AM) Temperature [96.8-100.4 DegF] 98.3 DegF (09/10/22 6:03 AM) 98.5 DegF (09/10/22 3:10 AM) 98.8 DegF (09/10/22 12:30 AM) Mode of Delivery (Oxygen) Room air (09/10/22 6:03 AM) Room air (09/10/22 3:10 AM) Room air (09/10/22 12:30 AM) Blood pressure sites Arm, right (09/10/22 6:03 AM) Arm, right (09/10/22 3:10 AM) Arm, right (09/10/22 12:30 AM) Temperature Route Oral (09/10/22 6:03 AM) Oral (09/10/22 3:10 AM) Oral (09/10/22 12:30 AM) Social History Social History Type Response Smoking Status Never (less than 100 in lifetime) entered on: 02/15/22 Sex Female Patient Care team information Care Team Personnel Name: Gauri Pascual Position: S RN Member Role: Primary Care Nurse Name: Lorraine Zendejas MD Position: [facility] Primary Care Physician Member Role: PCP Address: Address: [address] [place] [address]- Care Team Related Persons Name: RELL PHELPS Address: [address] [address] Name: RUSLAN ABREU Address: [address] Address: home [address] [address] Name: MER NAY Address: [address] [place] [address] Name: PRAVIN PARKER Address: [address] [address] Name: ADITHYA HAYDEN Address: [address] Address: home [address] [address] Name: PRAVIN HAYDEN Address: [address] [address]
--- OUTSIDE RECORDS SUMMARY | 2023-11-16 17:19 | XMS_ITS | Continuity of Care Document ---
Author Organization [facility] Address [address] [place] [address]- Care Team Providers Care Logger Driving Horses Name Role Phone Aashish IBARRA, Lorraine Primary Care Physician [facility] Date[facility]): [facility] [address] [address]- Allergies, Adverse Reactions, Alerts Substance Reaction Severity [...] 5 Refills, Maintenance, 11/25/21 15:15:00 EDT, Aerosol, [facility] #[id number], Partial fill upon patient request if the prescription is for a schedule II opioid drug., 2 puffs Inhalation 2 times a d... Start Date: 11/25/21 Status: Ordered Aspirin Low Dose 81 mg oral delayed release tablet 2 tablet, By Mouth, Daily, START AT 12 WEEKS, 09/11/21, # 90 tablet, 3 Refills, [facility] #[id number], 154, cm, 01/04/22 13:56:00 EDT, Height, 86.5, [...] 3 Refills, Maintenance, 01/05/22 12:46:00 EDT, Tablet, [facility] #[id number], Partial fill upon patient request if the prescription is for a schedule II opioid drug., 154, cm, 01/04/22 13:56:00 ED... Start Date: 01/05/22 Status: Ordered Lidoderm 5% film 1 patch, Topically, Daily, (remove patch(s) after 12 hours), # 30 patch, 5 Refills, Maintenance, 11/25/21 15:09:00 EDT, [facility] #[id number], Partial fill upon patient request if the prescription is for a schedule II opioid drug., 1 patch Topic... Start Date: 11/25/21 Status: Ordered magnesium oxide 400 mg oral tablet 1 tablet = 400 mg, By Mouth, Daily, for 30 days, to treat and prevent headaches, # 30 tablet, 3 Refills, Acute 06/22/22 19:25:00 EST, 02/22/22 19:25:00 EDT, Tablet, [facility] #[id number], Partial fill upon patient request if the prescription is... Start Date: 02/22/22 Stop Date: 06/22/22 Status: Ordered MiraLax oral powder for reconstitution = 17 Gm, By Mouth, Daily, dissolve in water before taking, # 527 Gm, 0 Refills, Maintenance, 08/16/21 13:56:00 EST, REC Powder, [facility] #[id number], Partial fill upon patient request if the prescription is for a schedule II opioid drug., 17 Gm... Start Date: 08/16/21 Status: Ordered Multivitamins with Folic Acid 1 mg oral tablet 1 tablet, By Mouth, Daily, # 90 tablet, 3 Refills, Maintenance, 09/16/21 15:48:00 EST, Tablet, [facility] #[id number], Partial fill upon patient request if the prescription is for a schedule II opioid drug., 1 tablet By Mouth Daily, 157, cm, 02/0... Start Date: 09/16/21 Status: Ordered ProAir HFA 90 mcg/inh inhalation aerosol with adapter 2, puffs, Inhalation, Every 4 hours, PRN, # 8.5 Gm, Refills 2, Tot. Refills 2, Maintenance, 11/25/21 15:15:00 EDT, Aerosol, Route to Pharmacy Electronically, [id number], [facility] #[id number], 154, cm, 11/25/21 14:53:00... Start Date: 11/25/21 [...] 1 Refills, Maintenance, 01/08/22 14:18:00 EDT, Capsule, [facility] #[id number], Partial fill upon patient request if the [...]
--- OUTSIDE RECORDS SUMMARY | 2023-11-16 17:19 | XMS_ITS | Continuity of Care Document ---
Author Organization [facility] ter Address [address] [place] [address]- Care Team Providers Care Orthopedic Radiologic Technologist Name Role Phone Lorraine Zendejas MD Primary Care Physician [phone] [place] [facility] [place] 08/15/22 - 08/15/[address] [address]- Encounter Diagnosis COVID-19(Final) - 08/15/22 Discharge Disposition: A-D/C Walkout Attending Physician: Not [...] 0 Refills, Maintenance, 05/17/22 15:05:00 EDT, Capsule, [facility] #[id number], Partial fill upon patient request if the prescription is for a schedule II opioid . Start Date: 05/17/22 Status: Ordered acetaminophen 325 mg oral tablet 650 mg, 2, tablet, By Mouth, Every 4 hours, PRN, # 30 tablet, Refills 0, Tot. Refills 0, Maintenance, for pain, 08/15/22 15:08:00 EST, Route to Pharmacy Electronically, [facility] #[id number], Partial fill upon patient request if the prescription... Start Date: 08/15/22 Status: Ordered Advair HFA 115 mcg / 21 mcg 2 puffs, Inhalation, 2 times a day, # 1 each, 5 Refills, Maintenance, 05/03/22 16:02:00 EDT, Aerosol, [facility] #[id number], Partial fill upon patient request if the prescription is for a schedule II opioid drug., 2 puffs Inhalation 2 times a da... Start Date: 05/03/22 Stop Date: 10/30/22 Status: Ordered albuterol CFC free 90 mcg/inh inhalation aerosol 2, puffs, Inhalation, Every 6 hours, PRN, # 8.5 Gm, Refills 11, Tot. Refills 11, Maintenance, 05/03/22 11:45:00 EDT, Aerosol, Route to Pharmacy Electronically, [id number], [facility] #[id number], dispense brand preferred... Start Date: 05/03/22 Stop Date: 04/28/23 Status: Ordered clotrimazole 1% topical cream 1 application, Topically, 2 times a day, # 12 Gm, 0 Refills, Maintenance, 04/11/22 4:42:00 EDT, Cream, [facility] #[id number], Partial fill upon patient request if the prescription is for a schedule II opioid drug., 1 application Topically 2 time... Start Date: 04/11/22 Status: Ordered Colace sodium 100 mg oral capsule 100 mg, 1, capsule, By Mouth, 2 times a day, PRN, # 20 capsule, Refills 0, Tot. Refills 0, Maintenance, for constipation, 03/18/22 15:18:00 EDT, Route to Pharmacy Electronically, [facility]#[id number], Partial fill upon patient request if the pr... Start Date: 03/18/22 Status: Ordered Dilaudid 2 mg oral tablet 1 tablet = 2 mg, By Mouth, Every 4 hours, # 10 tablet, 0 Refills, Maintenance, 03/18/22 18:17:00 EDT, Tablet, [facility] #[id number], Partial fill upon patient request if the prescription is fora schedule II opioid drug., 154, cm, 03/18/22 11:26... Start Date: 03/18/22 Status: Ordered ferrous sulfate 325 mg oral tablet 1 tablet = 325 mg, By Mouth, Daily, # 30 tablet, 3 Refills, Maintenance, 01/05/22 12:46:00 EDT, Tablet, [facility] #[id number], Partial fill upon patient request if the prescription is for a schedule II opioid drug., 154, cm, 01/04/22 13:56:00 ED... Start Date: 01/05/22 Status: Ordered ibuprofen 600 mg oral tablet 600 mg, 1, tablet, By Mouth, Every 6 hours, # 50 tablet, Refills 0, Tot. Refills 0, Maintenance, 03/18/22 15:18:00 EDT, Route to Pharmacy Electronically, [facility] #[id number], Partial fill upon patient request if the [...] Refills, Maintenance, 08/16/21 13:56:00 EST, REC Powder, [facility] #[id number], Partial fill upon patient request if the prescription is for a schedule II opioid drug., 17 Gm... Start Date: 08/16/21 Status: Ordered Multivitamins with Folic Acid 1 mg oral tablet 1 tablet, By Mouth, Daily, # 90 tablet, 3 Refills, Maintenance, 05/03/22 12:05:00 EDT, Tablet, [facility] #[id number], Partial fill upon patient request if the prescription is for a schedule II opioid drug., 1 tablet By Mouth Daily,x90 days, 157,... Start Date: 05/03/22 Stop Date: 04/28/23 Status: Ordered simethicone 125 mg oral tablet, chewable 1 tablet = 125 mg, Chew, 4 times a day, # 48 tablet, 0 Refills, Maintenance, 03/18/22 15:18:00 EDT,Chew Tablet, [facility] #[id number], Partial fill upon patient request if the [...] 0 Refills, Maintenance, 03/18/22 15:18:00 EDT, Cream, [facility] #[id number], Partial fill upon patient request if the [...] 1 2 3 Oxygen Saturation [94-100 %] 98 % (08/15/22 1:56 PM) 100 % (08/15/22 12:44 PM) 100 % (08/15/22 8:58 AM) Pulse Rate [55-90 bpm] 88 bpm (08/15/22 1:56 PM) 73 bpm (08/15/22 12:44 PM) 96 bpm *H* (08/15/22 8:58 AM) Blood Pressure [90-138/55-84 mm Hg] 125/72mm Hg (08/15/22 1:56 PM) 111/63mm Hg (08/15/22 12:44 PM) 135/89mm Hg (08/15/22 8:58 AM) Respiratory Rate [16-30 br/min] 18 br/min (08/15/22 1:56 PM) 18 br/min (08/15/22 12:44 PM) 18 br/min (08/15/22 8:58 AM) Temperature [96.8-100.4 DegF] 97.6 DegF (08/15/22 1:56 PM) 98.3 DegF (08/15/22 8:58 AM) Liters per Minute 0 L/min (08/15/22 1:56 PM) Mode of Delivery (Oxygen) Room air (08/15/22 1:56 PM) Room air (08/15/22 8:58 AM) Room air (08/15/22 8:50 AM) Temperature Route Oral (08/15/22 1:56 PM) Oral (08/15/22 8:58 AM) Social History Social History Type Response Smoking Status Never (less than 100 in lifetime) entered on: 02/15/22 Sex Female Note * Jose De Jesus Stewart MD: PERFORM Event Display: Patient Education Leaflets Authored Date: [id number] COVID-19 Information for Families ?? 87 COVID-19 Information for Families Information from: www.cdc.gov/COVID19 ? What is coronavirus disease 2019 (COVID-19)? Coronavirus disease 2019 (COVID-19) is a respiratory illness that can spread from person to person.The virus that causes COVID-19 is a NEW coronavirus [facility] ?? How does COVID-19 spread? The virus that causes COVID-19 probably emerged from an animal source, but is now spreading from person to person. The virus spreads mainly between people who are in close contact with one another (within 6 feet) through respiratory droplets produced when an infected person coughs or sneezes. It may be possible that a person can get COVID-19 by touching a surface or object that has the virus on it and then touching their own mouth, nose or eyes. ?? What are the symptoms? (*Most common in children) ??? Fever* ??? Runny nose ??? Aching muscles ??? Cough* ??? Sore throat ??? Congestion ??? A few can have vomiting &&diarrhea ?? When should a symptomatic person seek medical care? When symptoms are getting worse ??? Breathing is more difficult ?? Call the doctor immediately if: ??? Breathing is labored ??? Tightness in chest ??? Bluish lips or face ??? New confusion or cannotarouse BEFORE seeking care, call your doctor and tell them you are Being evaluated for COVID-19. ?? What can I do to protect myself and my family from getting COVID-19? Avoid close contact with people who are sick ??? Avoid touching your eyes, nose and mouth with unwashed hands ??? Wash your hands often with soap and water for at least 20 seconds. Especially: - Before you eat, prepare food or feed your children - After diapering an infant or using the bathroom - Use an alcohol-based hand cash accounting clerk if soap and water are not available ?? For cleaning use: ? ? Soap &&water For disinfection use: ??? Most common EPA-registered household disinfectants should be effective ??? Alcohol solutions with at least 70% alcohol ??? Diluted bleach: - 1 tsp bleach - 1 cup of water ?? What if someone I live with has symptoms? Symptomatic people should: ??? Stay home: - In an area apart from family and pets - With a separate bathroom if possible ??? Restrict activities outside your home except for medical care ??? Cover coughs or sneezes with a tissue or your elbow (discard tissue immediately) ??? Clean and disinfect frequently touched objects and surfaces every day ??? Avoid sharing personal household items: food, drink, dishes, utensils, towels, and bedding ? Is it okay for a mother with symptoms to breastfeed her infant? Breast milk is the best source of nutrition for most infants. However, much is unknown about COVID-19. Whether to start or continue should be determined by the mother in coordination with her healthcare provider. A mother with confirmed or symptoms of COVID-19 should take all possibleprecautions to avoid spreading the virus to her , including washing her hands before touchingthe infant and wearing a face mask, if possible, while feeding at the breast. If expressing breast milk with a manual or electric breast pump, the mother should wash her hands before touching any pump or bottle parts and follow recommendations for proper pump cleaning after each use. If possible, consider having someone who is well feed the expressed breast milk to the . ? * Jose De Jesus Stewart MD: PERFORM Event Display: Patient Education Leaflets Authored Date: COVID-19 Test Positive Adult ?? 575 IMPORTANT INSTRUCTIONS ABOUT COVID-19 ?? You tested positive for COVID-19. ?? General Information ? Even when infected with COVID-19, many people have mild symptoms and recover on their own. There are no specific treatments for mild COVID infections but many people feel better with simple supportive strategies: rest, plenty of oral fluids, and ibuprofen and/or acetaminophen for pain and fever. ? It is very important for you to help to prevent the spread of the virus. ? 1. Stay home except to get medical care. People who are mildly ill with COVID-19 should stay at home during their illness.? You should not go to work, school, or to any public areas.? You should not allow guestsin your home. ? Absolutely no large crowds, public transportation, ride sharing or taxis.? 2. Wash your hands often. Wash your hands often with soap and water for at least 20 seconds. If soap and water are not available, clean your hands with hand cash accounting clerk, covering all surfaces of your hands and rubbing them together until they feel dry. Avoid touching your eyes, nose, and mouth with unwashed hands. ? 3. Wear a face mask over your nose and mouth. Masks are one of the best ways to prevent the spread of COVID.?? When someone is sick, all household members should wear a mask when indoors and within 6feet of another person. If it is absolutely necessary to leave your house, wear a mask at all times. ?? 4. If possible, separate yourself from other people your house for at least 10 days . If you have aseparate bathroom, have one bathroom be for the sick person only. You should not share dishes, drinking glasses, cups, eating utensils, towels, or bedding with other people or pets in your home. After using these items, they should be washed thoroughly with soap and water. Try to avoid contact withpeople over 60 years old or anyone with chronic heart or lung disease, diabetes, kidney disease or any condition that weakens their immune system (such as cancer, transplant patients), since they have a higher risk of becoming very sick if they get COVID-19.? Young children may not be able to be isolated from family members or caregivers. Ideally, one household member should be the designated caregiver and should isolate with the child. If you are you may safely continue to do so. ? 5. Clean all high-touch surfaces every day. High touch surfaces include counters, tabletops, doorknobs, bathroom fixtures, toilets, phones, keyboards, tablets, and bedside tables. Also, clean any surfaces that may have blood, stool, or body fluids on them. Use a household cleaning spray or wipe, according to the label instructions. ? 6. Call ahead before visiting your doctor. If you need to see your doctor, it is essential that youcall first and tell them that you have or may have COVID-19. This will help the healthcare provider???s office take steps to keep other people from getting infected or exposed. ? When to return to the Emergency Department ? Please return to the emergency department if you feel you are getting sicker, have worsening difficulty breathing or chest pain, trouble eating/drinking, weakness, or new confusion. If possible, put on a facemask before you enter the hospital to protect other patients. If you feel you are sick enough to call 911, be sure to tell them you may have COVID-19. ? When can I go back to my regular life? ?? You should isolate at home until any fever has been absent for 24 hours and it has been at least 10days since the onset of symptoms.? For severe cases of COVID-19, longer isolation is required.??Your primary care provider can help you know what ???s best for you based on how quickly your childrecovers. ?? Please contact your doctor to discuss his/her availability for tele-visits to help support you as needed. ? Patient Care team information Care Team Personnel Name: Gauri Pascual Position: [facility] RN Member Role: Primary Care Nurse Name: Lorraine Zendejas MD Position: [facility] Primary Care Physician Member Role: PCP Address: Address: [address] [place] [address]- Name: Jose De Jesus Stewart MD Position: [facility] ED Medicine MD Member Role: ED Attending Physician Address: Address: [address] [place] [address]- Care Team Related Persons Name: LENIN RELL Address: home [address] [address] Name: RUSLAN ABREU Address: [address] Address: home [address] [address] [place] Name: NAY DEL ANGEL Address: home [address] [place] [address] Name: PRAVIN PARKER Address: home [address] [place] [address] Name: ADITHYA HAYDEN Address: [address] Address: home [address] [address] [place] Name: PRAVIN HAYDEN Address: home [address] [place] [address]
--- OUTSIDE RECORDS SUMMARY | 2023-11-16 17:19 | XMS_ITS | Continuity of Care Document ---
Author Organization [facility] Address [address] [place] [address]- Care Team Providers Care A P Supervisor Name Role Phone Aashish IBARRA, Lorraine Primary Care Physician [place] [facility] [place] [facility] [address] [address]- [facility] Attending Physician: Roque Villela Admitting Physician: [...] Refills, Maintenance, 08/04/19 15:51:00 EST, Chew Tablet, [facility] #[id number], 1 tablet Chew Daily,x90 days, 157, cm, [...] 11:47:01 EDT, Aerosol, Route to Pharmacy Electronically, [id number], [id number] Start Date: 10/30/18 Status: Ordered Slow Fe [...] # 18 tablet, 1 Refills, Soft Stop, [facility] #[id number], 157, cm, 07/31/19 8:49:00 EST, Height, 84.5, kg, 04/29/19 4:40:00 Alley JOHNSON. Start Date: 10/07/19 Status: Ordered Problem List Condition Effective Dates Status Health Status Inform ant Anemia(Confirmed) Active Asthma(Confirmed) Active Depression(Confirmed) Active Fatigue(Confirmed) Active Headache(Confirmed) Active History of pre-eclampsia(Confirmed) Active Social History Social History Type Response Smoking Status Never smoker; Tobacc o user in household: No entered on: 12/05/16 Sex Female
--- OUTSIDE RECORDS SUMMARY | 2023-11-16 17:19 | XMS_ITS | Continuity of Care Document ---
Author Organization [facility] Address [address] [place] [address]- Care Team Providers Care Mail Caller Name Role Phone Aashish IBARRA, Lorraine Primary Care Physician Encounter [facility] Date(s): 08/13/20 - 09/12/[address] [address]- Attending Physician: Roque Villela Admitting Physician: AdmtrRoque [...] 08/25/20 9:53:00 EST, Route to Pharmacy Electronically, [facility] #[id number], 157, cm, 06/08/20 15:12:00 EST, Height, 84.5, kg, ... Start Date: 08/25/20 Status: Ordered Flovent HFA 220 mcg/inh inhalation aerosol 2 puffs, Inhalation, 2 times a day, use with spacer chamber rinse mouth and throat after use, # 1 each, 5 Refills, Maintenance, 08/04/20 12:45:00 EST, Aerosol, [facility] #[id number], 157, cm, 06/08/20 15:12:00 EST, Height, 84.5, kg, 04/29/19 4:... Start Date: 08/04/20 Status: Ordered lidocaine 4% topical film 1 patch, Topically, Daily, # 15 each, 0 Refills, Acute 09/13/20 13:33:00 EST, 08/13/20 13:33:00 EST, Film, [facility] #[id number], Partial fill upon patient request if the prescription is for a schedule II opioid drug., 1 patch Topically Daily, 1... Start Date: 08/13/20 Stop Date: 09/13/20 Status: Ordered ProAir HFA 90 mcg/inh inhalation aerosol with adapter 2, puffs, Inhalation, Every 4 hours, PRN, # 8.5 Gm, Refills 5, Tot. Refills 5, Maintenance, 08/04/20 12:45:00 EST, Aerosol, Route to Pharmacy Electronically, [id number], [facility] #[id number], 157, cm, 06/08/20 15:12:00... Start Date: 08/04/20 [...] # 18 tablet, 1 Refills, Soft Stop, [facility] #[id number], 157, cm, 07/31/19 8:49:00 EST, Height, 84.5, kg, 04/29/19 4:40:00 EDT, D... Start Date: 10/07/19 Status: Ordered Xulane 150 mcg-35 mcg/24 hr transdermal film, extended release 1 patch, Topically, Every week, # 3 each, 11 Refills, Maintenance, 05/26/20 10:54:00 EDT, [facility] #[id number], 1 patch Topically Every week,x7 days, 157, [...]
--- OUTSIDE RECORDS SUMMARY | 2023-11-16 17:19 | XMS_ITS | Continuity of Care Document ---
Author Organization [facility] Address [address] [place] [address]- Care Team Providers Care Claims Administrator Name Role Phone Aashish IBARRA, Lorraine Primary Care Physician Encounter [facility] Date(s): 04/01/21 - 05/01/[address] [address]- Allergies, Adverse Reactions, Alerts Substance Reaction Severity [...] 5 Refills, Maintenance, 11/16/20 15:34:00 EDT, Aerosol, [facility] #[id number], Partial fill upon patient request if the prescription is for a schedule II opioid drug., 2 puffs Inhalation 2 times a d... Start Date: 11/16/20 Status: Ordered cyclobenzaprine 10 mg oral tablet 1, tablet, By Mouth, 3 times a day, PRN, # 45 tablet, Refills 0, Tot. Refills 0, Acute, NEEDED FOR SPASM, 08/25/20 9:53:00 EST, Route to Pharmacy Electronically, [facility] #[id number], 157, cm, 06/08/20 15:12:00 EST, Height, 84.5, kg, ... Start Date: 08/25/20 Status: Ordered Lidoderm 5% film 1 patch, Topically, Daily, (remove patch(s) after 12 hours), # 30 patch, 0 Refills, Maintenance, 10/12/20 11:07:00 EST, [facility] #[id number], Partial fill upon patient request if the prescription is for a schedule II opioid drug., 1 patch Topic... Start Date: 10/12/20 Status: Ordered ProAir HFA 90 mcg/inh inhalation aerosol with adapter 2, puffs, Inhalation, Every 4 hours, PRN, # 8.5 Gm, Refills 5, Tot. Refills 5, Maintenance, 01/06/21 8:08:00 EDT, Aerosol, Route to Pharmacy Electronically, [id number], [facility] #[id number], 157, cm, 11/17/20 9:48:00 E... Start Date: [...] tablet, 0 Refills, Maintenance, 12/13/20 14:28:00 EDT, [facility] #[id number], 157, cm, 11/17/20 9:48:00 EDT, Height, 84.5, kg... Start Date: 12/13/20 Status: Ordered Xulane 150 mcg-35 mcg/24 hr transdermal film, extended release 1 patch, Topically, Every week, # 3 each, 11 Refills, Maintenance, 03/29/21 11:42:00 EDT, [facility] #[id number], 1 patch Topically Every week,x7 days, 157, [...]
--- OUTSIDE RECORDS SUMMARY | 2023-11-16 17:19 | XMS_ITS | Continuity of Care Document ---
Author Organization [facility] Address [address] [place] [address]- Care Team Providers Care Registered Midwife Name Role Phone Aashish IBARRA, Lorraine Primary Care Physician [phone] Encounter [facility] Date(s): 03/23/20 - 07/21/[address] [address]- Attending Physician: Not on Staff, Attending MD [...] 5 Refills, Maintenance, 11/03/19 12:31:00 EDT, Aerosol, [facility] #[id number], 157, cm, 07/31/19 8:49:00 EST, Height, 84.5, kg, 04/29/19 4:4... Start Date: 11/03/19 Status: Ordered naproxen 500 mg oral tablet 1 tablet = 500 mg, By Mouth, 2 times a day, for 30 days, PRN Pain. with food, # 60 tablet, 1 Refills, Hard Stop 08/17/20 8:28:00 EST, 06/18/20 8:28:00 EST, Tablet, [facility] #03958, 157, cm, 06/08/20 15:12:00 EST, Height, 84.5, kg, 04/29/19... Start Date: 06/18/20 Stop Date: 08/17/20 Status: Ordered ProAir HFA 90 mcg/inh inhalation aerosol with adapter 2, puffs, Inhalation, Every 4 hours, PRN, # 8.5 Gm, Refills 5, Tot. Refills 5, Maintenance, 11/03/19 12:31:00 EDT, Aerosol, Route to Pharmacy Electronically, [id number], [facility] #[id number], 157, cm, 07/31/19 8:49:00... Start Date: 11/03/19 [...] # 18 tablet, 1 Refills, Soft Stop, [facility] #77088, 157, cm, 07/31/19 8:49:00 EST, Height, 84.5, kg, 04/29/19 4:40:00 EDT, D... Start Date: 10/07/19 Status: Ordered Xulane 150 mcg-35 mcg/24 hr transdermal film, extended release 1 patch, Topically, Every week, # 3 each, 11 Refills, Maintenance, 05/26/20 10:54:00 EDT, [facility] #[id number], 1 patch Topically Every week,x7 days, 157, [...]
--- OUTSIDE RECORDS SUMMARY | 2023-11-16 17:19 | XMS_ITS | Continuity of Care Document ---
Author Organization [facility] Address [address] [place] [address]- Care Team Providers Care Audiovisual Equipment Operator Name Role Phone Aashish IBARRA, Lorraine Primary Care Physician [place] [facility] [place](s): 06/20/22 - 07/20/[address] [address]- Attending Physician: Roque Villela Admitting Physician: AdmtrRoque [...] 0 Refills, Maintenance, 05/17/22 15:05:00 EDT, Capsule, [facility] #[id number], Partial fill upon patient request if the prescription is for a schedule II opioid . Start Date: 05/17/22 Status: Ordered Advair HFA 115 mcg / 21 mcg 2 puffs, Inhalation, 2 times a day, # 1 each, 5 Refills, Maintenance, 05/03/22 16:02:00 EDT, Aerosol, [facility] #66182, Partial fill upon patient request if the prescription is for a schedule II opioid drug., 2 puffs Inhalation 2 times a da... Start Date: 05/03/22 Stop Date: 10/30/22 Status: Ordered albuterol CFC free 90 mcg/inh inhalation aerosol 2, puffs, Inhalation, Every 6 hours, PRN, # 8.5 Gm, Refills 11, Tot. Refills 11, Maintenance, 05/03/22 11:45:00 EDT, Aerosol, Route to Pharmacy Electronically, [id number], [facility] #[id number], dispense brand preferred... Start Date: 05/03/22 Stop Date: 04/28/23 Status: Ordered clotrimazole 1% topical cream 1 application, Topically, 2 times a day, # 12 Gm, 0 Refills, Maintenance, 04/11/22 4:42:00 EDT, Cream, [facility] #[id number], Partial fill upon patient request if the prescription is for a schedule II opioid drug., 1 application Topically 2 time... Start Date: 04/11/22 Status: Ordered Colace sodium 100 mg oral capsule 100 mg, 1, capsule, By Mouth, 2 times a day, PRN, # 20 capsule, Refills 0, Tot. Refills 0, Maintenance, for constipation, 03/18/22 15:18:00 EDT, Route to Pharmacy Electronically, [facility]#05106, Partial fill upon patient request if the pr... Start Date: 03/18/22 Status: Ordered Dilaudid 2 mg oral tablet 1 tablet = 2 mg, By Mouth, Every 4 hours, # 10 tablet, 0 Refills, Maintenance, 03/18/22 18:17:00 EDT, Tablet, [facility] #79126, Partial fill upon patient request if the prescription is fora schedule II opioid drug., 154, cm, 03/18/22 11:26... Start Date: 03/18/22 Status: Ordered ferrous sulfate 325 mg oral tablet 1 tablet = 325 mg, By Mouth, Daily, # 30 tablet, 3 Refills, Maintenance, 01/05/22 12:46:00 EDT, Tablet, [facility] #[id number], Partial fill upon patient request if the prescription is for a schedule II opioid drug., 154, cm, 01/04/22 13:56:00 ED... Start Date: 01/05/22 Status: Ordered ibuprofen 600 mg oral tablet 600 mg, 1, tablet, By Mouth, Every 6 hours, # 50 tablet, Refills 0, Tot. Refills 0, Maintenance, 03/18/22 15:18:00 EDT, Route to Pharmacy Electronically, [facility] #[id number], Partial fill upon patient request if the prescription is for a sched... Start Date: 03/18/22 Status: Ordered MiraLax oral powder for reconstitution = 17 Gm, By Mouth, Daily, dissolve in water before taking, # 527 Gm, 0 Refills, Maintenance, 08/16/21 13:56:00 EST, REC Powder, [facility] #[id number], Partial fill upon patient request if the prescription is for a schedule II opioid drug., 17 Gm... Start Date: 08/16/21 Status: Ordered Multivitamins with Folic Acid 1 mg oral tablet 1 tablet, By Mouth, Daily, # 90 tablet, 3 Refills, Maintenance, 05/03/22 12:05:00 EDT, Tablet, [facility] #99774, Partial fill upon patient request if the prescription is for a schedule II opioid drug., 1 tablet By Mouth Daily,x90 days, 157,... Start Date: 05/03/22 Stop Date: 04/28/23 Status: Ordered simethicone 125 mg oral tablet, chewable 1 tablet = 125 mg, Chew, 4 times a day, # 48 tablet, 0 Refills, Maintenance, 03/18/22 15:18:00 EDT,Chew Tablet, [facility] #52171, Partial fill upon patient request if the [...] 03/18/22 15:18:00 EDT, Cream, [facility] #[id number], Partial fill upon patient request if the [...] 100 in lifetime) entered on: 02/15/22 Sex Note * Event Display: Non Lab Results Authored Date: Patient Care team information Care Team Personnel Name: Gauri Pascual Position: [facility] RN Member Role: Primary Care Nurse Name: Lorraine Zendejas MD Position: [facility] Primary Care Physician Member Role: PCP Address: Address: [address] [place] [address]- Care Team Related Persons Name: RELL PHELPS Address: [address] [address] Name: RUSLAN ABREU Address: [address] Address: [place] [address] [address] [place] Name: NAY DEL ANGEL Address: home [address] [place] [address] Name: PRAVIN PARKER Address: home [address] [place] [address] Name: ADITHYA HAYDEN Address: [address] Address: [address] [address] [place] Name: PRAVIN HAYDEN Address: home [address] [place] [address]
--- OUTSIDE RECORDS SUMMARY | 2023-11-16 17:20 | XMS_ITS | Continuity of Care Document ---
Author Organization [facility] Address [address] [place] [address]- Care Team Providers Care Tarp Repairer Name Role Phone Lorraine Zendejas MD Primary Care Physician [phone] [place] [facility] [place] - 01/11/[address] [address]- Discharge Disposition: A-D/C Home Attending Physician: Debo Li MD Admitting Physician: Debo Li MD Referring Physician: Not on Staff, Referring [...] 08/15/22 15:08:00 EST, Route to Pharmacy Electronically, [facility] #[id number], Partial fill upon patient request if the prescription... Start Date: 08/15/22 Status: Ordered Advair HFA 115 mcg / 21 mcg 2 puffs, Inhalation, 2 times a day, # 1 each, 5 Refills, Maintenance, 05/03/22 16:02:00 EDT, Aerosol, [facility] #[id number], Partial fill upon patient request if the prescription is for a schedule II opioid drug., 2 puffs Inhalation 2 times a da... Start Date: 05/03/22 Stop Date: 10/30/22 Status: Ordered albuterol 0.083% inhalation solution 3 mL = 2.5 mg, Inhalation, Every 6 hours, PRN Wheezing/Shortness of Breath, # 60 each, 1 Refills, Maintenance, 11/09/22 13:41:00 EDT, Solution, [facility] #11045, Partial fill upon patient request if the prescription is for a schedule II opi... Start Date: 11/09/22 Status: Ordered albuterol CFC free 90 mcg/inh inhalation aerosol 2, puffs, Inhalation, Every 6 hours, PRN, for 30 days, # 8.5 Gm, Refills 11, Tot. Refills 11, Hard Stop 04/28/23 11:45:00 EDT, 05/03/22 11:45:00 EDT, Aerosol, Route to Pharmacy Electronically, [id number], [facility]... Start Date: 05/03/22 Stop Date: 04/28/23 Status: Ordered cetirizine 5 mg oral tablet = 5 mg, By Mouth, Daily, # 30 tablet, 0 Refills, Maintenance, 11/17/22 10:48:00 EDT, Tablet, [facility] #35735, Partial fill upon patient request if the prescription is for a schedule II opioid drug., 156, cm, 11/17/22 8:44:00 EDT, Height, 8... Start Date: 11/17/22 Status: Ordered ibuprofen 400 mg oral tablet 400 mg, 1, tablet, By Mouth, Every 4 hours, PRN, # 60 tablet, Refills 0, Tot. Refills 0, Maintenance, for pain, 11/17/22 10:49:00 EDT, Route to Pharmacy Electronically, [facility] #22422, Partial fill upon patient request if the prescription... Start Date: 11/17/22 Status: Ordered lidocaine 1.8% topical film 1 patch, Topically, Daily, leave on up to 12 hours, # 30 each, 0 Refills, Maintenance, 11/17/22 10:47:00 EDT, Film, [facility] #[id number], Partial fill upon patient request if the prescription is for a schedule II opioid drug., 1 patch Topically... Start Date: 11/17/22 Status: Ordered MiraLax oral powder for reconstitution = 17 Gm, By Mouth, Daily, dissolve in water before taking, # 527 Gm, 0 Refills, Maintenance, 11/17/22 10:47:00 EDT, REC Powder, [facility] #26007, Partial fill upon patient request if the [...] 2 Refills, Maintenance, 11/07/22 17:30:00 EDT, Tablet, [facility] #02602, Partial fill upon patient request if the [...] Exam Date Time Procedure Performing Provider Status 01/11/23 9:[address] Chest W/O Contrast Carolyn Saenz; Salvador h (Verified) Notes: (CT Chest W/O Contrast) Reason For Exam: Chest Pain;Other: RESULT: CT Chest W/O Contrast CT Chest W/O Contrast Hx of Present Illness: 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 pt got in between and restrained pt. Reason: Chest Pain. Clinical Question(s): Rib fractures. TECHNIQUE: Helical CT scan of the chest without IV contrast, formatted in 3 planes. Weight-based protocol was performed using automatic exposure control. CTDIvol Body: 10.32 mGy, DLP Body: 434 mGy*cm. COMPARISON: Correlation with CT angiogram chest 01/08/2022, 03/14/2019. FINDINGS: Implant Polisher view findings, lines and tubes: None. Trachea and airways: Patent without evidence of tracheal or endobronchial lesion. Lungs and pleura: Clear lungs. No effusion or pneumothorax. Mediastinum and steven: No mass or hematoma. No mediastinal or hilar lymphadenopathy. No esophageal abnormality. Normal thyroid. Heart: Heart is normal in size. No pericardial effusion. No coronary arterial calcifications. Aorta: No aortic aneurysm. Pulmonary arteries: Normal caliber. Chest wall soft tissues: No acute abnormality. Diaphragm: Intact. Upper abdomen: Coarse calcifications in hepatic segment 8 (602:82, 603:51), unchanged. Diffuse hypoattenuation of the liver parenchyma, compatible with hepatic steatosis. Focal fatty sparing around the gallbladder. Bones: No acute abnormality. IMPRESSION: No evidence of acute findings in the chest to explain the patient's symptoms, specifically no rib fractures. Hepatic steatosis. Unchanged calcifications in the liver. I have personally reviewed the images and I agree with this report. WSN: [id number] Ordering Physician: Debo Li Dictated By: Mega Salazar MD Dictated Date/Time: 01/11/23 10:51 p Reviewed By: Jeyson Aden MD Signed By: Jeyson Aden MD Signed Date/Time: 01/11/23 10:56 pm Transcribed By: CHARLIE Transcribed Date/Time: 01/11/23 10:38 pm * Exam Date Time Procedure Performing Provider Status 01/11/23 8:57 PM Knee 1 or 2 Views Left Lizzie Batres [facility] (Verified) Notes: (Knee 1 or 2 Views Left) Reason For Exam: Pain RESULT: Knee 1 or 2 Views Left Knee 1 or 2 Views Left, views Reason: Pain; Clinical Question(s): Fracture COMPARISON: None. FINDINGS: There is no evidence of acute or healing fracture, dislocation or bone lesion. No arthritic changes. No osteochondral defects or intra-articular loose bodies. No evidence of joint effusion. IMPRESSION: Normal. WSN: [id number] Ordering Physician: Debo Li Dictated By: Jeyson Aden MD Dictated Date/Time: 01/11/23 9:09 pm Reviewed By: Jeyson Aden MD Signed By: Jeyson Aden MD Signed Date/Time: 01/11/23 9:09 pm Transcribed By: CHARLIE Transcribed Date/Time: 01/11/23 9:07 pm Vital Signs Most recent to oldest [Reference Range]: 1 2 Weight 82.8 kg (01/11/23 11:22 PM) 82.8 kg (01/11/23 7:39 PM) Oxygen Saturation [94-100 %] 100 % (01/11/23:22 PM) 99 % (01/11/23 7:39 PM) Pulse Rate [55-90 bpm] 86 bpm (01/11/23 11:22 PM) 93 bpm *H* (01/11/23 7:39 PM) Blood Pressure [90-138/55-84 mm Hg] 124/ 72mm Hg (01/11/23 11:22 PM) 127/78mm Hg (01/11/23 7:39 PM) Respiratory Rate [16-30 br/min] 16 br/mi n (01/11/23 11:22 PM) 17 br/min (01/11/23 7:39 PM) Temperature [96.8-100.4 DegF] 98.0 DegF (01/11/23 11:22 PM) 97.8 DegF (01/11/23 7:39 PM) Mode of Delivery (Oxygen) Room air (01/11/23 11:22 PM) Room air (01/11/23 7:39 PM) Blood pressure sites Arm, right (01/11/23 11:22 PM) Arm, left (01/11/23 7:39 PM) Temperature Route Oral (01/11/23 11:22 PM) Oral (01/11/23 7:39 PM) Weight Obtained Via Standing scale (01/11/23 7:39 PM) Social History Social History Type Response Smoking Status Never (less than 100 in lifetime) entered on: 02/15/22 Sex Female XR Knee - left 1 or 2 Views * [facility] Quinteros S: TRANSCRIBE Jeyson Aden MD: VERIFY Event Display: Result: Authored Date: [id number] Knee 1 or 2 Views Left, views Reason: Pain; Clinical Question(s): Fracture COMPARISON: None. FINDINGS: There is no evidence of acute or healing fracture, dislocation or bone lesion. No arthritic changes. No osteochondral defects or intra-articular loose bodies. No evidence of joint effusion. IMPRESSION: Normal. 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 pt got in between and restrained pt. Reason: Chest Pain. Clinical Question(s): Rib fractures. TECHNIQUE: Helical CT scan of the chest without IV contrast, formatted in 3 planes. Weight-based protocol was performed using automatic exposure control. CTDIvol Body: 10.32 mGy, DLP Body: 434 mGy*cm. COMPARISON: Correlation with CT angiogram chest 01/08/2022, 03/14/2019. FINDINGS: Implant Polisher view findings, lines and tubes: None. Trachea and airways: Patent without evidence of tracheal or endobronchial lesion. Lungs and pleura: Clear lungs. No effusion or pneumothorax. Mediastinum and steven: No mass or hematoma. No mediastinal or hilar lymphadenopathy. No esophageal abnormality. Normal thyroid. Heart: Heart is normal in size. No pericardial effusion. No coronary arterial calcifications. Aorta: No aortic aneurysm. Pulmonary arteries: Normal caliber. Chest wall soft tissues: No acute abnormality. Diaphragm: Intact. Upper abdomen: Coarse calcifications in hepatic segment 8 (602:82, 603:51), unchanged. Diffuse hypoattenuation of the liver parenchyma, compatible with hepatic steatosis. Focal fatty sparing around the gallbladder. Bones: No acute abnormality. IMPRESSION: No evidence of acute findings in the chest to explain the patient's symptoms, specifically no rib fractures. Hepatic steatosis. Unchanged calcifications in the liver. I have personally reviewed the images and I agree with this report. WSN: [id number] Ordering Physician: Debo Li Dictated By: Mega Salazar MD Dictated Date/Time: 01/11/23 10:51 p Reviewed By: Jeyson Aden MD Signed By: Jeyson Aden MD Signed Date/Time: 01/11/23 10:56 pm Transcribed By: CHARLIE Transcribed Date/Time: 01/11/23 10:38 pm Patient Care team information Care Team Personnel Name: Gauri Pascual Position: S RN Member Role: Primary Care Nurse Name: Lorraine Zendejas MD Position: [facility] Physician - Primary Care Member Role: PCP Address: Address: [address] [place] [id number] Attending Position: [facility] ED Attendings Patient Name: Debo Li MD Position: [facility] ED Medicine MD Member Role: Admitting Physician Address: Address: [address] [place] [address] [place] [address]- Name: Frances Cronin RN Position: [facility] ED RN W/OE and Tasks Member Role: Patient Care Provider Care Team Related Persons Name: RELL PHELPS Address: [address] [address] Name: BRADY RUSLAN Address: [address] Address: [address] [address] [place] Name: NAY DEL ANGEL Address: home [address] [place] [address] Name: PRAVIN PARKER Address: home [address] [place] [id number] Name: ADITHYA HAYDEN Address: [address] Address: [address] [address] [place] Name: SANTYFRANKIPRAVIN Bergeron Address: home [address] [place] [address]
--- OUTSIDE RECORDS SUMMARY | 2023-11-16 17:20 | XMS_ITS | Continuity of Care Document ---
Author Organization [facility] Address [address] [place] [address]- Care Team Providers Care Guardian Ad Litem Name Role Phone Aashish IBARRA, Lorraine Primary Care Physician [facility] Date[facility]s): 05/30/23 - 06/29/[address] [address]- Allergies, Adverse Reactions, Alerts Substance Reaction Severity [...] 08/15/22 15:08:00 EST, Route to Pharmacy Electronically, [facility] #[id number], Partial fill upon patient request if the prescription... Start Date: 08/15/22 Status: Ordered Advair HFA 115 mcg / 21 mcg 2 puffs, Inhalation, 2 times a day, # 1 each, 5 Refills, Maintenance, 05/03/22 16:02:00 EDT, Aerosol, [facility] #[id number], Partial fill upon patient request if the prescription is for a schedule II opioid drug., 2 puffs Inhalation 2 times a da... Start Date: 05/03/22 Stop Date: 10/30/22 Status: Ordered albuterol 0.083% inhalation solution 3 mL = 2.5 mg, Inhalation, Every 6 hours, PRN Wheezing/Shortness of Breath, # 60 each, 1 Refills, Maintenance, 11/09/22 13:41:00 EDT, Solution, [facility] #[id number], Partial fill upon patient request if the prescription is for a schedule II opi... Start Date: 11/09/22 Status: Ordered albuterol 0.083% inhalation solution 3 mL = 2.5 mg, Inhalation, Every 6 hours, PRN for wheezing, # 25 each, 0 Refills, Maintenance, 05/29/23 20:07:00 EDT, Solution, [facility] #[id number], Partial fill upon patient request if the prescription is for a schedule II opioid drug., 156,... Start Date: 05/29/23 Status: Ordered cetirizine 5 mg oral tablet = 5 mg, By Mouth, Daily, # 30 tablet, 0 Refills, Maintenance, 11/17/22 10:48:00 EDT, [facility] #[id number], Partial fill upon patient request if the prescription is for a schedule II opioid drug., 156, cm, 11/17/22 8:44:00 EDT, Height, 8... Start Date: 11/17/22 Status: Ordered Depakote 250 mg oral enteric coated tablet 1 tablet = 250 mg, By Mouth, 2 times a day, # 60 tablet, 3 Refills, Maintenance, 02/28/23 16:39:00 EDT, [facility] #[id number], Partial fill upon patient request if the prescription is for a schedule II opioid drug., 155, cm, 02/28/23 11:38:00 ED... Start Date: 02/28/23 Status: Ordered dicyclomine 20 mg oral tablet 1 tablet = 20 mg, By Mouth, 4 times a day, 30 to 60 minutes before meals, # 28 tablet, 4 Refills, Maintenance, 04/05/23 11:18:00 EDT, [facility] #[id number], Partial fill upon patient request if the prescription is for a schedule II opioi... Start Date: 04/05/23 Stop Date: 05/10/23 Status: Ordered ibuprofen 400 mg oral tablet 400 mg, 1, tablet, By Mouth, Every 4 hours, PRN, # 60 tablet, Refills 0, Tot. Refills 0, Maintenance, for pain, 11/17/22 10:49:00 EDT, Route to Pharmacy Electronically, [facility] #[id number], Partial fill upon patient request if the prescription... Start Date: 11/17/22 Status: Ordered lidocaine 1.8% topical film 1 patch, Topically, Daily, leave on up to 12 hours, # 30 each, 0 Refills, Maintenance, 11/17/22 10:47:00 EDT, Film, [facility] #[id number], Partial fill upon patient request if the prescription is for a schedule II opioid drug., 1 patch Topically... Start Date: 11/17/22 Status: Ordered metroNIDAZOLE 0.75% topical gel 1 application, Topically, Daily at bedtime, use vaginal applicator to insert vaginally nightly for 5 nights, # 45 Gm, 0 Refills, Maintenance, 02/14/23 16:28:00 EDT, Gel, [facility] #[id number], Partial fill upon patient request if the prescriptio... Start Date: 02/14/23 Stop Date: 02/19/23 Status: Ordered metroNIDAZOLE 500 mg oral tablet 1 tablet = 500 mg, By Mouth, Every 12 hours, # 28 tablet, 0 Refills, Maintenance, 01/25/23 16:14:00EDT, Tablet, [facility] #[id number], Partial fill upon patient request if the prescription is for a schedule II opioid drug., 156, cm, 01/25/23 15... Start Date: 01/25/23 Stop Date: 02/08/23 Status: Ordered MiraLax oral powder for reconstitution = 17 Gm, By Mouth, Daily, dissolve in water before taking, # 527 Gm, 0 Refills, Maintenance, 11/17/22 10:47:00 EDT, REC Powder, [facility] #[id number], Partial fill upon patient request if the prescription is for a schedule II opioid drug., 17 Gm... Start Date: 11/17/22 Status: Ordered morphine 15 mg oral tablet, immediate release 1 tablet = 15 mg, By Mouth, Every 4 hours, PRN as needed for pain, # 10 tablet, 0 Refills, Maintenance, 04/03/23 19:18:00 EDT, [facility] #[id number], Partial fill upon patient request if the prescription is for a schedule II opioid drug.... Start Date: 04/03/23 Status: Ordered ondansetron 4 mg oral tablet, disintegrating 1 tablet = 4 mg, By Mouth, Every 8 hours, PRN as needed for nausea/vomiting, # 10 tablet, 0 Refills, Maintenance, 04/03/23 19:22:00 EDT, DIS Tablet, [facility] #[id number], Partial fill upon patient request if the prescription is for a schedule I... Start Date: 04/03/23 Status: Ordered predniSONE 20 mg oral tablet 1 tablet = 20 mg, By Mouth, 2 times a day, # 10 tablet, 0 Refills, Soft Stop, 05/29/23 20:12:00 EDT, [facility] #[id number], Partial fill upon patient request if the [...] 3 Refills, Soft Stop, 01/25/23 10:30:00 EDT, [facility] #0... Start Date: 01/25/23 Status: [...] Team Personnel Name: Vivi Bailey NP Position: [facility] PCO Associate Professional Member Role: Lifetime Consulting Provider Address: Address: [address] [place] [address]- Name: Gauri Pascual Position: [facility] RN Member Role: Primary Care Nurse Name: Lorraine Zendejas MD Position: [facility] Physician - Primary Care Member Role: PCP Address: Address: [address] [place] [address]- Care Team Related Persons Name: KENDAL PHELPS Address: [address] [place] [address] Name: RELL PHELPS Address: [address] [address] Name: RUSLAN ABREU Address: [id number] Address: home [address] [place] [address] [place] Name: NAY DEL ANGEL Address: home [address] [place] [address] Name: PRAVIN PARKER Address: [address] [place] [address] Name: ADITHYA HAYDEN Address: [id number] Address: [address] [address] [place] Name: PRAVIN HAYDEN Address: home [address] [place] [address]
--- OUTSIDE RECORDS SUMMARY | 2023-11-16 17:20 | XMS_ITS | Continuity of Care Document ---
Author Organization [facility] Address [address] [place] [address]- Care Team Providers Care Pocket Grinder Operator Name Role Phone Aashish IBARRA, Lorraine Primary Care Physician [phone] [facility]counter [facility] Date[facility]s): 03/07/22 - 04/06/22 [facility] [address] [address]- Allergies, Adverse Reactions, Alerts Substance Reaction Severity [...] 0 Refills, Maintenance, 03/18/22 15:18:00 EDT, Capsule, [facility] #[id number], Partial fill upon patient request if the prescription is for a schedule II opioid . Start Date: 03/18/22 Status: Ordered Advair HFA 115 mcg / 21 mcg 2 puffs, Inhalation, 2 times a day, # 60 each, 5 Refills, Maintenance, 11/25/21 15:15:00 EDT, Aerosol, [facility] #[id number], Partial fill upon patient request if the prescription is for a schedule II opioid drug., 2 puffs Inhalation 2 times a d... Start Date: 11/25/21 Status: Ordered Aspirin Low Dose 81 mg oral delayed release tablet 2 tablet, By Mouth, Daily, START AT 12 WEEKS, 09/11/21, # 90 tablet, 3 Refills, [facility] #[id number], 154, cm, 01/04/22 13:56:00 EDT, Height, 86.5, kg, 10/29/21 21:50:00 EDT, Dry Weight Start Date: 01/05/22 Status: Ordered Colace sodium 100 mg oral capsule 100 mg, 1, capsule, By Mouth, 2 times a day, PRN, # 20 capsule, Refills 0, Tot. Refills 0, Maintenance, for constipation, 03/18/22 15:18:00 EDT, Route to Pharmacy Electronically, [facility]#[id number], Partial fill upon patient request if the pr... Start Date: 03/18/22 Status: Ordered Dilaudid 2 mg oral tablet 1 tablet = 2 mg, By Mouth, Every 4 hours, # 10 tablet, 0 Refills, Maintenance, 03/18/22 18:17:00 EDT, Tablet, [facility] #[id number], Partial fill upon patient request if the prescription is fora schedule II opioid drug., 154, cm, 03/18/22 11:26... Start Date: 03/18/22 Status: Ordered ferrous sulfate 325 mg oral tablet 1 tablet = 325 mg, By Mouth, Daily, # 30 tablet, 3 Refills, Maintenance, 01/05/22 12:46:00 EDT, Tablet, [facility] #[id number], Partial fill upon patient request if the prescription is for a schedule II opioid drug., 154, cm, 01/04/22 13:56:00 ED... Start Date: 01/05/22 Status: Ordered ibuprofen 600 mg oral tablet 600 mg, 1, tablet, By Mouth, Every 6 hours, # 50 tablet, Refills 0, Tot. Refills 0, Maintenance, 03/18/22 15:18:00 EDT, Route to Pharmacy Electronically, [facility] #[id number], Partial fill upon patient request if the prescription is for a sched... Start Date: 03/18/22 Status: Ordered magnesium oxide 400 mg oral tablet 1 tablet = 400 mg, By Mouth, Daily, for 30 days, to treat and prevent headaches, # 30 tablet, 3 Refills, Acute 06/22/22 19:25:00 EST, 02/22/22 19:25:00 EDT, Tablet, [facility] #[id number], Partial fill upon patient request if the prescription is... Start Date: 02/22/22 Stop Date: 06/22/22 Status: Ordered MiraLax oral powder for reconstitution = 17 Gm, By Mouth, Daily, dissolve in water before taking, # 527 Gm, 0 Refills, Maintenance, 08/16/21 13:56:00 EST, REC Powder, [facility] #[id number], Partial fill upon patient request if the prescription is for a schedule II opioid drug., 17 Gm... Start Date: 08/16/21 Status: Ordered Multivitamins with Folic Acid 1 mg oral tablet 1 tablet, By Mouth, Daily, # 90 tablet, 3 Refills, Maintenance, 09/16/21 15:48:00 EST, Tablet, [facility] #[id number], Partial fill upon patient request if the prescription is for a schedule II opioid drug., 1 tablet By Mouth Daily, 157, cm, 0... Start Date: 09/16/21 Status: Ordered ProAir HFA 90 mcg/inh inhalation aerosol with adapter 2, puffs, Inhalation, Every 4 hours, PRN, # 8.5 Gm, Refills 2, Tot. Refills 2, Maintenance, 11/25/21 15:15:00 EDT, Aerosol, Route to Pharmacy Electronically, [id number], [facility] #[id number], 154, cm, 11/25/21 14:53:00... Start Date: 11/25/21 Status: Ordered simethicone 125 mg oral tablet, chewable 1 tablet = 125 mg, Chew, 4 times a day, # 48 tablet, 0 Refills, Maintenance, 03/18/22 15:18:00 EDT,Chew Tablet, [facility] #[id number], Partial fill upon patient request if the [...] 0 Refills, Maintenance, 03/18/22 15:18:00 EDT, Cream, [facility] #[id number], Partial fill upon patient request if the [...] Team Personnel Name: Lorraine Zendejas MD Address: [address] [place] [address]
--- OUTSIDE RECORDS SUMMARY | 2023-11-16 17:20 | XMS_ITS | Continuity of Care Document ---
Author Organization [facility] Address [address] [place] [address]- Care Team Providers Care Budget Examiner Name Role Phone Aashish IBARRA, Lorraine Primary Care Physician [facility] Date(s): 05/28/23 - 06/27/[address] [address]- Allergies, Adverse Reactions, Alerts Substance Reaction Severity [...] 08/15/22 15:08:00 EST, Route to Pharmacy Electronically, [facility] #[id number], Partial fill upon patient request if the prescription... Start Date: 08/15/22 Status: Ordered Advair HFA 115 mcg / 21 mcg 2 puffs, Inhalation, 2 times a day, # 1 each, 5 Refills, Maintenance, 05/03/22 16:02:00 EDT, Aerosol, [facility] #[id number], Partial fill upon patient request if the prescription is for a schedule II opioid drug., 2 puffs Inhalation 2 times a da... Start Date: 05/03/22 Stop Date: 10/30/22 Status: Ordered albuterol 0.083% inhalation solution 3 mL = 2.5 mg, Inhalation, Every 6 hours, PRN Wheezing/Shortness of Breath, # 60 each, 1 Refills, Maintenance, 11/09/22 13:41:00 EDT, Solution, [facility] #[id number], Partial fill upon patient request if the prescription is for a schedule II opi... Start Date: 11/09/22 Status: Ordered albuterol 0.083% inhalation solution 3 mL = 2.5 mg, Inhalation, Every 6 hours, PRN for wheezing, # 25 each, 0 Refills, Maintenance, 05/29/23 20:07:00 EDT, Solution, [facility] #[id number], Partial fill upon patient request if the prescription is for a schedule II opioid drug., 156,... Start Date: 05/29/23 Status: Ordered cetirizine 5 mg oral tablet = 5 mg, By Mouth, Daily, # 30 tablet, 0 Refills, Maintenance, 11/17/22 10:48:00 EDT, [facility] #[id number], Partial fill upon patient request if the prescription is for a schedule II opioid drug., 156, cm, 11/17/22 8:44:00 EDT, Height, 8... Start Date: 11/17/22 Status: Ordered Depakote 250 mg oral enteric coated tablet 1 tablet = 250 mg, By Mouth, 2 times a day, # 60 tablet, 3 Refills, Maintenance, 02/28/23 16:39:00 EDT, [facility] #[id number], Partial fill upon patient request if the prescription is for a schedule II opioid drug., 155, cm, 02/28/23 11:38:00 ED... Start Date: 02/28/23 Status: Ordered dicyclomine 20 mg oral tablet 1 tablet = 20 mg, By Mouth, 4 times a day, 30 to 60 minutes before meals, # 28 tablet, 4 Refills, Maintenance, 04/05/23 11:18:00 EDT, [facility] #[id number], Partial fill upon patient request if the prescription is for a schedule II opioi... Start Date: 04/05/23 Stop Date: 05/10/23 Status: Ordered ibuprofen 400 mg oral tablet 400 mg, 1, tablet, By Mouth, Every 4 hours, PRN, # 60 tablet, Refills 0, Tot. Refills 0, Maintenance, for pain, 11/17/22 10:49:00 EDT, Route to Pharmacy Electronically, [facility] #[id number], Partial fill upon patient request if the prescription... Start Date: 11/17/22 Status: Ordered lidocaine 1.8% topical film 1 patch, Topically, Daily, leave on up to 12 hours, # 30 each, 0 Refills, Maintenance, 11/17/22 10:47:00 EDT, Film, [facility] #[id number], Partial fill upon patient request if the prescription is for a schedule II opioid drug., 1 patch Topically... Start Date: 11/17/22 Status: Ordered metroNIDAZOLE 0.75% topical gel 1 application, Topically, Daily at bedtime, use vaginal applicator to insert vaginally nightly for 5 nights, # 45 Gm, 0 Refills, Maintenance, 02/14/23 16:28:00 EDT, Gel, [facility] #[id number], Partial fill upon patient request if the prescriptio... Start Date: 02/14/23 Stop Date: 02/19/23 Status: Ordered metroNIDAZOLE 500 mg oral tablet 1 tablet = 500 mg, By Mouth, Every 12 hours, # 28 tablet, 0 Refills, Maintenance, 01/25/23 16:14:00EDT, Tablet, [facility] #[id number], Partial fill upon patient request if the prescription is for a schedule II opioid drug., 156, cm, 01/25/23 15... Start Date: 01/25/23 Stop Date: 02/08/23 Status: Ordered MiraLax oral powder for reconstitution = 17 Gm, By Mouth, Daily, dissolve in water before taking, # 527 Gm, 0 Refills, Maintenance, 11/17/22 10:47:00 EDT, REC Powder, [facility] #[id number], Partial fill upon patient request if the prescription is for a schedule II opioid drug., 17 Gm... Start Date: 11/17/22 Status: Ordered morphine 15 mg oral tablet, immediate release 1 tablet = 15 mg, By Mouth, Every 4 hours, PRN as needed for pain, # 10 tablet, 0 Refills, Maintenance, 04/03/23 19:18:00 EDT, [facility] #[id number], Partial fill upon patient request if the prescription is for a schedule II opioid drug.... Start Date: 04/03/23 Status: Ordered ondansetron 4 mg oral tablet, disintegrating 1 tablet = 4 mg, By Mouth, Every 8 hours, PRN as needed for nausea/vomiting, # 10 tablet, 0 Refills, Maintenance, 04/03/23 19:22:00 EDT, DIS Tablet, [facility] #[id number], Partial fill upon patient request if the prescription is for a schedule I... Start Date: 04/03/23 Status: Ordered predniSONE 20 mg oral tablet 1 tablet = 20 mg, By Mouth, 2 times a day, # 10 tablet, 0 Refills, Soft Stop, 05/29/23 20:12:00 EDT, [facility] #[id number], Partial fill upon patient request if the [...] 3 Refills, Soft Stop, 01/25/23 10:30:00 EDT, [facility] #0... Start Date: 01/25/23 Status: [...] Team Personnel Name: Vivi Bailey NP Position: [facility] PCO Associate Professional Member Role: Lifetime Consulting Provider Address: Address: [address] [place] [address]- Name: Gauri Pascual Position: [facility] RN Member Role: Primary Care Nurse Name: Lorraine Zendejas MD Position: [facility] Physician - Primary Care Member Role: PCP Address: Address: [address] [place] [address]- Care Team Related Persons Name: KENDAL PHELPS Address: home [address] [place] [address] Name: RELL PHELPS Address: [address] [address] Name: RUSALN ABREU Address: [address] Address: home [address] [place] [address] [place] Name: NAY DEL ANGEL Address: [address] [place] [address] Name: PRAVIN PARKER Address: [address] [place] [address] Name: ADITHYA HAYDEN Address: [id number] Address: [address] [address] [place] Name: PRAVIN HAYDEN Address: [address] [place] [address]
--- OUTSIDE RECORDS SUMMARY | 2023-11-16 17:20 | XMS_ITS | Continuity of Care Document ---
Author Organization [facility] Address [address] [facility], [address] d Floor, [address] [place] [address]- Care Team Providers Care Revolving Field Assembler Name Role Phone Lorraine Zendejas MD Primary Care Physician [phone] Encounter [facility] Date(s): 12/14/20 - 01/13/21 [facility] [address], [address], [address] [place] [address] Attending Physician: Roque Villela Admitting Physician: [...] 5 Refills, Maintenance, 11/16/20 15:34:00 EDT, Aerosol, [facility] #[id number], Partial fill upon patient request if the prescription is for a schedule II opioid drug., 2 puffs Inhalation 2 times a d... Start Date: 11/16/20 Status: Ordered Ambien 5 mg oral tablet See Instructions, 1 tablet to take the night of in lab sleep study, after arrival to sleep lab, # 1tablet, 0 Refills, Acute 02/10/21 9:42:00 EDT, 11/11/20 9:41:00 EDT, [facility] #[id number], Partial fill upon patient request if the prescription... Start Date: 11/11/20 Stop Date: 02/10/21 Status: Ordered cyclobenzaprine 10 mg oral tablet 1, tablet, By Mouth, 3 times a day, PRN, # 45 tablet, Refills 0, Tot. Refills 0, Acute, NEEDED FOR SPASM, 08/25/20 9:53:00 EST, Route to Pharmacy Electronically, [facility] #[id number], 157, cm, 06/08/20 15:12:00 EST, Height, 84.5, kg, ... Start Date: 08/25/20 Status: Ordered Lidoderm 5% film 1 patch, Topically, Daily, (remove patch(s) after 12 hours), # 30 patch, 0 Refills, Maintenance, 10/12/20 11:07:00 EST, [facility] #[id number], Partial fill upon patient request if the prescription is for a schedule II opioid drug., 1 patch Topic... Start Date: 10/12/20 Status: Ordered ProAir HFA 90 mcg/inh inhalation aerosol with adapter 2, puffs, Inhalation, Every 4 hours, PRN, # 8.5 Gm, Refills 5, Tot. Refills 5, Maintenance, 01/06/21 8:08:00 EDT, Aerosol, Route to Pharmacy Electronically, [id number], [facility] #[id number], 157, cm, 11/17/20 9:48:00 E... Start Date: [...] tablet, 0 Refills, Maintenance, 12/13/20 14:28:00 EDT, [facility] #[id number], 157, cm, 11/17/20 9:48:00 EDT, Height, 84.5, kg... Start Date: 12/13/20 Status: Ordered Xulane 150 mcg-35 mcg/24 hr transdermal film, extended release 1 patch, Topically, Every week, # 3 each, 11 Refills, Maintenance, 05/26/20 10:54:00 EDT, [facility] #[id number], 1 patch Topically Every week,x7 days, 157, [...]
--- OUTSIDE RECORDS SUMMARY | 2023-11-16 17:20 | XMS_ITS | Continuity of Care Document ---
Author Organization [facility] Address [address] [place] [address]- Care Team Providers Care Bed Maker Name Role Phone Aashish IBARRA, Lorraine Primary Care Physician [phone] Encounter [facility] Date(s): 04/05/23 - 05/05/[address] [address]- Attending Physician: AdmRoque vasquez Admitting Physician: Admtr, [...] 08/15/22 15:08:00 EST, Route to Pharmacy Electronically, [facility] #[id number], Partial fill upon patient request if the prescription... Start Date: 08/15/22 Status: Ordered Advair HFA 115 mcg / 21 mcg 2 puffs, Inhalation, 2 times a day, # 1 each, 5 Refills, Maintenance, 05/03/22 16:02:00 EDT, Aerosol, [facility] #[id number], Partial fill upon patient request if the prescription is for a schedule II opioid drug., 2 puffs Inhalation 2 times a da... Start Date: 05/03/22 Stop Date: 10/30/22 Status: Ordered albuterol 0.083% inhalation solution 3 mL = 2.5 mg, Inhalation, Every 6 hours, PRN Wheezing/Shortness of Breath, # 60 each, 1 Refills, Maintenance, 11/09/22 13:41:00 EDT, Solution, [facility] #[id number], Partial fill upon patient request if the prescription is for a schedule II opi... Start Date: 11/09/22 Status: Ordered cetirizine 5 mg oral tablet = 5 mg, By Mouth, Daily, # 30 tablet, 0 Refills, Maintenance, 11/17/22 10:48:00 EDT, [facility] #[id number], Partial fill upon patient request if the prescription is for a schedule II opioid drug., 156, cm, 11/17/22 8:44:00 EDT, Height, 8... Start Date: 11/17/22 Status: Ordered Depakote 250 mg oral enteric coated tablet 1 tablet = 250 mg, By Mouth, 2 times a day, # 60 tablet, 3 Refills, Maintenance, 02/28/23 16:39:00 EDT, [facility] #[id number], Partial fill upon patient request if the prescription is for a schedule II opioid drug., 155, cm, 02/28/23 11:38:00 ED... Start Date: 02/28/23 Status: Ordered dicyclomine 20 mg oral tablet 1 tablet = 20 mg, By Mouth, 4 times a day, 30 to 60 minutes before meals, # 28 tablet, 4 Refills, Maintenance, 04/05/23 11:18:00 EDT, [facility] #[id number], Partial fill upon patient request if the prescription is for a schedule II opioi... Start Date: 04/05/23 Stop Date: 05/10/23 Status: Ordered ibuprofen 400 mg oral tablet 400 mg, 1, tablet, By Mouth, Every 4 hours, PRN, # 60 tablet, Refills 0, Tot. Refills 0, Maintenance, for pain, 11/17/22 10:49:00 EDT, Route to Pharmacy Electronically, [facility] #[id number], Partial fill upon patient request if the prescription... Start Date: 11/17/22 Status: Ordered lidocaine 1.8% topical film 1 patch, Topically, Daily, leave on up to 12 hours, # 30 each, 0 Refills, Maintenance, 11/17/22 10:47:00 EDT, Film, [facility] #[id number], Partial fill upon patient request if the prescription is for a schedule II opioid drug., 1 patch Topically... Start Date: 11/17/22 Status: Ordered metroNIDAZOLE 0.75% topical gel 1 application, Topically, Daily at bedtime, use vaginal applicator to insert vaginally nightly for 5 nights, # 45 Gm, 0 Refills, Maintenance, 02/14/23 16:28:00 EDT, Gel, [facility] #[id number], Partial fill upon patient request if the prescriptio... Start Date: 02/14/23 Stop Date: 02/19/23 Status: Ordered metroNIDAZOLE 500 mg oral tablet 1 tablet = 500 mg, By Mouth, Every 12 hours, # 28 tablet, 0 Refills, Maintenance, 01/25/23 16:14:00EDT, Tablet, [facility] #[id number], Partial fill upon patient request if the prescription is for a schedule II opioid drug., 156, cm, 01/25/23 15... Start Date: 01/25/23 Stop Date: 02/08/23 Status: Ordered MiraLax oral powder for reconstitution = 17 Gm, By Mouth, Daily, dissolve in water before taking, # 527 Gm, 0 Refills, Maintenance, 11/17/22 10:47:00 EDT, REC Powder, [facility] #[id number], Partial fill upon patient request if the prescription is for a schedule II opioid drug., 17 Gm... Start Date: 11/17/22 Status: Ordered morphine 15 mg oral tablet, immediate release 1 tablet = 15 mg, By Mouth, Every 4 hours, PRN as needed for pain, # 10 tablet, 0 Refills, Maintenance, 04/03/23 19:18:00 EDT, Tablet, [facility] #[id number], Partial fill upon patient request if the prescription is for a schedule II opioid drug.... Start Date: 04/03/23 Status: Ordered ondansetron 4 mg oral tablet, disintegrating 1 tablet = 4 mg, By Mouth, Every 8 hours, PRN as needed for nausea/vomiting, # 10 tablet, 0 Refills, Maintenance, 04/03/23 19:22:00 EDT, DIS Tablet, [facility] #[id number], Partial fill upon patient request if the [...] Refills, Soft Stop, 01/25/23 10:30:00 EDT, Tablet, [facility] #0... Start Date: 01/25/23 Status: [...] Team Personnel Name: Vivi Bailey NP Position: [facility] PCO Associate Professional Member Role: Lifetime Consulting Provider Address: Address: [address] [place] [address] Name: Gauri Pascual Position: [facility] RN Member Role: Primary Care Nurse Name: Lorraine Zendejas MD Position: [facility] Physician - Primary Care Member Role: PCP Address: Address: [address] [place] [address]- Care Team Related Persons Name: BEV PHELPSTOYALILIAN Address: home [address] [place] [address] Name: RELL PHELPS Address: [address] [address] Name: RUSLAN ABREU Address: [address] Address: home [address] [place] [address] [place] Name: NAY DEL ANGEL Address: home [address] [place] [address] Name: PRAVIN PARKER Address: [address] [place] [address] Name: ADITHYA HAYDEN Address: [address] Address: [address] [address] [place] Name: PRAVIN HAYDEN Address: [address] [place] [address]
--- OUTSIDE RECORDS SUMMARY | 2023-11-16 17:20 | XMS_ITS | Continuity of Care Document ---
Author Organization [facility] Address [address] [place] [address]- Care Team Providers Care Seismographer Name Role Phone Aashish IBARRA, Lorraine Primary Care Physician [facility]counter [facility] Date(s): 06/15/21 - 07/15/[address] [address]- Allergies, Adverse Reactions, Alerts Substance Reaction Severity [...] 5 Refills, Maintenance, 11/16/20 15:34:00 EDT, Aerosol, [facility] #[id number], Partial fill upon patient request if the prescription is for a schedule II opioid drug., 2 puffs Inhalation 2 times a d... Start Date: 11/16/20 Status: Ordered cyclobenzaprine 10 mg oral tablet 1, tablet, By Mouth, 3 times a day, PRN, # 45 tablet, Refills 0, Tot. Refills 0, Acute, NEEDED FOR SPASM, 08/25/20 9:53:00 EST, Route to Pharmacy Electronically, [facility] #[id number], 157, cm, 06/08/20 15:12:00 EST, Height, 84.5, kg, ... Start Date: 08/25/20 Status: Ordered Lidoderm 5% film 1 patch, Topically, Daily, (remove patch(s) after 12 hours), # 30 patch, 0 Refills, Maintenance, 10/12/20 11:07:00 EST, [facility] #[id number], Partial fill upon patient request if the prescription is for a schedule II opioid drug., 1 patch Topic... Start Date: 10/12/20 Status: Ordered ProAir HFA 90 mcg/inh inhalation aerosol with adapter 2, puffs, Inhalation, Every 4 hours, PRN, # 8.5 Gm, Refills 5, Tot. Refills 5, Maintenance, 01/06/21 8:08:00 EDT, Aerosol, Route to Pharmacy Electronically, [id number], [facility] #[id number], 157, cm, 11/17/20 9:48:00 E... Start Date: [...] tablet, 0 Refills, Maintenance, 12/13/20 14:28:00 EDT, [facility] #[id number], 157, cm, 11/17/20 9:48:00 EDT, Height, 84.5, kg... Start Date: 12/13/20 Status: Ordered Xulane 150 mcg-35 mcg/24 hr transdermal film, extended release 1 patch, Topically, Every week, # 3 each, 11 Refills, Maintenance, 03/29/21 11:42:00 EDT, [facility] #[id number], 1 patch Topically Every week,x7 days, 157, [...]
--- OUTSIDE RECORDS SUMMARY | 2023-11-16 17:20 | XMS_ITS | Continuity of Care Document ---
Author Organization [facility] ter Address [address] [place] [address]- Care Team Providers Care Research Group Director Name Role Phone Aashish IBARRA, Lorraine Primary Care Physician [facility]counter [facility] Date(s): 03/15/22 - 03/18/[address] [address] Discharge Disposition: A-D/C Home Attending Physician: Brittany Dodd MD Admitting Physician: Brittany Dodd MD Referring Physician: Brittany Dodd MD Allergies, Adverse Reactions, Alerts Substance Reaction [...] 0 Refills, Maintenance, 03/18/22 15:18:00 EDT, Capsule, [facility] #[id number], Partial fill upon patient request if the prescription is for a schedule II opioid . Start Date: 03/18/22 Status: Ordered Acetaminophen Tablet 650 mg, Tablet, By Mouth, (1-3), may give 325mg per patient preference and re- dose with 325mg within 4 hours, if needed. Patient should only receive a total of 650mg of Acetaminophen every 4 hours., 03/18/22 16:00:00 EDT Start Date: 03/18/22 Stop Date: 03/18/22 Status: Completed Advair HFA 115 mcg / 21 mcg 2 puffs, Inhalation, 2 times a day, # 60 each, 5 Refills, Maintenance, 11/25/21 15:15:00 EDT, Aerosol, [facility] #[id number], Partial fill upon patient request if the prescription is for a schedule II opioid drug., 2 puffs Inhalation 2 times a d... Start Date: 11/25/21 Status: Ordered Aspirin Low Dose 81 mg oral delayed release tablet 2 tablet, By Mouth, Daily, START AT 12 WEEKS, 09/11/21, # 90 tablet, 3 Refills, [facility] #[id number], 154, cm, 01/04/22 13:56:00 EDT, Height, 86.5, kg, 10/29/21 21:50:00 EDT, Dry Weight Start Date: 01/05/22 Status: Ordered Colace sodium 100 mg oral capsule 100 mg, 1, capsule, By Mouth, 2 times a day, PRN, # 20 capsule, Refills 0, Tot. Refills 0, Maintenance, for constipation, 03/18/22 15:18:00 EDT, Route to Pharmacy Electronically, [facility][id number], Partial fill upon patient request if the pr... Start Date: 03/18/22 Status: Ordered Dilaudid 2 mg oral tablet 1 tablet = 2 mg, By Mouth, Every 4 hours, # 10 tablet, 0 Refills, Maintenance, 03/18/22 18:17:00 EDT, Tablet, [facility] #[id number], Partial fill upon patient request if the prescription is fora schedule II opioid drug., 154, cm, 03/18/22 11:26... Start Date: 03/18/22 Status: Ordered Dilaudid 2 mg oral tablet 2 mg, Tablet, By Mouth, 03/18/22 16:00:00 EDT Start Date: 03/18/22 Stop Date: 03/18/22 Status: Completed ferrous sulfate 325 mg oral tablet 1 tablet = 325 mg, By Mouth, Daily, # 30 tablet, 3 Refills, Maintenance, 01/05/22 12:46:00 EDT, Tablet, [facility] #[id number], Partial fill upon patient request if the prescription is for a schedule II opioid drug., 154, cm, 01/04/22 13:56:00 ED... Start Date: 01/05/22 Status: Ordered ibuprofen 600 mg oral tablet 600 mg, 1, tablet, By Mouth, Every 6 hours, # 50 tablet, Refills 0, Tot. Refills 0, Maintenance, 03/18/22 15:18:00 EDT, Route to Pharmacy Electronically, [facility] #[id number], Partial fill upon patient request if the prescription is for a sched... Start Date: 03/18/22 Status: Ordered Ibuprofen Tablet 800 mg, Tablet, By Mouth, (4-6), may give 400mg per patient preference and re- dose with 400mg within 8 hours, if needed. Patient should only receive a total of 800mg of Ibuprofen every 8 hours., 03/18/22 16:00:00 EDT Start Date: 03/18/22 Stop Date: 03/18/22 Status: Completed magnesium oxide 400 mg oral tablet 1 tablet = 400 mg, By Mouth, Daily, for 30 days, to treat and prevent headaches, # 30 tablet, 3 Refills, Acute 06/22/22 19:25:00 EST, 02/22/22 19:25:00 EDT, Tablet, [facility] #[id number], Partial fill upon patient request if the prescription is... Start Date: 02/22/22 Stop Date: 06/22/22 Status: Ordered MiraLax oral powder for reconstitution = 17 Gm, By Mouth, Daily, dissolve in water before taking, # 527 Gm, 0 Refills, Maintenance, 08/16/21 13:56:00 EST, REC Powder, [facility] #[id number], Partial fill upon patient request if the prescription is for a schedule II opioid drug., 17 Gm... Start Date: 08/16/21 Status: Ordered Multivitamins with Folic Acid 1 mg oral tablet 1 tablet, By Mouth, Daily, # 90 tablet, 3 Refills, Maintenance, 09/16/21 15:48:00 EST, Tablet, [facility] #[id number], Partial fill upon patient request if the prescription is for a schedule II opioid drug., 1 tablet By Mouth Daily, 157, cm, 020... Start Date: 09/16/21 Status: Ordered ProAir HFA 90 mcg/inh inhalation aerosol with adapter 2, puffs, Inhalation, Every 4 hours, PRN, # 8.5 Gm, Refills 2, Tot. Refills 2, Maintenance, 11/25/21 15:15:00 EDT, Aerosol, Route to Pharmacy Electronically, [id number], [facility] #[id number], 154, cm, 11/25/21 14:53:00... Start Date: 11/25/21 Status: Ordered simethicone 125 mg oral tablet, chewable 1 tablet = 125 mg, Chew, 4 times a day, # 48 tablet, 0 Refills, Maintenance, 03/18/22 15:18:00 EDT,Chew Tablet, [facility] #[id number], Partial fill upon patient request if the [...] 0 Refills, Maintenance, 03/18/22 15:18:00 EDT, Cream, [facility] #[id number], Partial fill upon patient request if the [...] scar from previous c esarean delivery(Confirmed) Active Procedures Procedure Date Related Diagnosis Body Site Status delivery only; 03/15/22 C ompleted Vital Signs Most recent to oldest [Reference Range]: 1 2 3 Height 154 cm (03/18/22 4:57 PM) 154 cm (03/18/22 11:26 AM) 154 cm (03/16/22 9:30 PM) Weight 93.1 kg (03/15/22 11:46 AM) Oxygen Saturation [94-100 %] 96 % (03/18/22 4:57 PM) 99 % (03/18/22 11:26 AM) 99 % (03/17/22 4:00 PM) Pulse Rate [55-90 bpm] 86 bpm (03/18/22 4:57 PM) 84 bpm (03/18/22 11:26 AM) 89 bpm (03/17/22 4:00 PM) Body Mass Index [18.5-24.99] 39.26 *>HHI* (03/15/22 11:46 AM) Blood Pressure [90-138/55-84 mm Hg] 140/78mm Hg *H* (03/18/22 4:57 PM) 130/83mm Hg (03/18/22 11:26 AM) 127/66mm Hg (03/17/22 4:00 PM) Respiratory Rate [16-30 br/min] 18 br/min (03/18/22 5:30 PM) 18 br/min (03/18/22 5:15 PM) 18 br/min (03/18/22 5:15 PM) Temperature [96.8-100.4 DegF] 98.1 DegF (03/18/22 4:57 PM) 98.3 DegF (03/18/22 11:26 AM) 98.8 DegF (03/17/22 4:00 PM) Mode of Delivery (Oxygen) Room air (03/17/22 4:00 PM) Room air (03/17/22 8:00 AM) Room air (03/16/22 3:37 PM) Blood pressure sites Arm, right (03/18/22 11:26 AM) Arm, right (03/17/22 4:00 PM) Arm, right (03/17/22 8:00 AM) Temperature Route Oral (03/18/22 4:57 PM) Oral (03/18/22 11:26 AM) Oral (03/17/22 4:00 PM) Dry Weight 93.1 kg (03/15/22 11:46 AM) Weight Obtained Via Patient/family state d (03/15/22 11:46 AM) Dry Weight Obtained Via Patient/family s tated (03/15/22 11:46 AM) Social History Social History Type Response Smoking Status Never (less than 100 in lifetime) entered on: 02/15/22 Sex Female
--- OUTSIDE RECORDS SUMMARY | 2023-11-16 17:20 | XMS_ITS | Continuity of Care Document ---
Author Organization [facility] ter Address [address] [place] [address]- Care Team Providers Care Front End Software Engineer Name Role Phone Lorraine Zendejas MD Primary Care Physician Encounter [facility] Date(s): 03/07/22 - 03/07/[address] [address] Discharge Disposition: A-D/C Home Attending Physician: Ricco [...] 5 Refills, Maintenance, 11/25/21 15:15:00 EDT, [facility] #[id number], Partial fill upon patient request if the prescription is for a schedule II opioid drug., 2 puffs Inhalation 2 times a d... Start Date: 11/25/21 Status: Ordered Aspirin Low Dose 81 mg oral delayed release tablet 2 tablet, By Mouth, Daily, START AT 12 WEEKS, 09/11/21, # 90 tablet, 3 Refills, [facility] #[id number], 154, cm, 01/04/22 13:56:00 EDT, Height, 86.5, [...] 3 Refills, Maintenance, 01/05/22 12:46:00 EDT, Tablet, [facility] #[id number], Partial fill upon patient request if the prescription is for a schedule II opioid drug., 154, cm, 01/04/22 13:56:00 ED... Start Date: 01/05/22 Status: Ordered Lidoderm 5% film 1 patch, Topically, Daily, (remove patch(s) after 12 hours), # 30 patch, 5 Refills, Maintenance, 11/25/21 15:09:00 EDT, [facility] #[id number], Partial fill upon patient request if the prescription is for a schedule II opioid drug., 1 patch Topic... Start Date: 11/25/21 Status: Ordered magnesium oxide 400 mg oral tablet 1 tablet = 400 mg, By Mouth, Daily, for 30 days, to treat and prevent headaches, # 30 tablet, 3 Refills, Acute 06/22/22 19:25:00 EST, 02/22/22 19:25:00 EDT, Tablet, [facility] #[id number], Partial fill upon patient request if the prescription is... Start Date: 02/22/22 Stop Date: 06/22/22 Status: Ordered MiraLax oral powder for reconstitution = 17 Gm, By Mouth, Daily, dissolve in water before taking, # 527 Gm, 0 Refills, Maintenance, 08/16/21 13:56:00 EST, REC Powder, [facility] #[id number], Partial fill upon patient request if the prescription is for a schedule II opioid drug., 17 Gm... Start Date: 08/16/21 Status: Ordered Multivitamins with Folic Acid 1 mg oral tablet 1 tablet, By Mouth, Daily, # 90 tablet, 3 Refills, Maintenance, 09/16/21 15:48:00 EST, Tablet, [facility] #[id number], Partial fill upon patient request if the prescription is for a schedule II opioid drug., 1 tablet By Mouth Daily, 157, cm, 0... Start Date: 09/16/21 Status: Ordered ProAir HFA 90 mcg/inh inhalation aerosol with adapter 2, puffs, Inhalation, Every 4 hours, PRN, # 8.5 Gm, Refills 2, Tot. Refills 2, Maintenance, 11/25/21 15:15:00 EDT, Aerosol, Route to Pharmacy Electronically, [id number], [facility] #[id number], 154, cm, 11/25/21 14:53:00... Start Date: 11/25/21 [...] 1 Refills, Maintenance, 01/08/22 14:18:00 EDT, Capsule, [facility] #[id number], Partial fill upon patient request if the [...]
--- OUTSIDE RECORDS SUMMARY | 2023-11-16 17:20 | XMS_ITS | Continuity of Care Document ---
Author Organization [facility] Address [address] [place] [address]- Care Team Providers Care Copy Chief Name Role Phone Aashish IBARRA, Lorraine Primary Care Physician [phone] Encounter [facility] Date(s): 09/22/20 - 10/22/[address] [address]- Allergies, Adverse Reactions, Alerts Substance Reaction Severity [...] Note: ORAL 3Admin Note: ORAL Medications Advair Diskus 100 mcg-50 mcg inhalation powder 1, puffs, Inhalation, 2 times a day, Discontinue Flovent. rinse mouth and throat after use, # 1 each, Refills 6, Tot. Refills 6, Maintenance, 09/27/20 14:46:00 EST, Powder, Route to Pharmacy Electronically, [id number]... Start Date: 09/27/20 Status: Ordered cyclobenzaprine 10 mg oral tablet 1, tablet, By Mouth, 3 times a day, PRN, # 45 tablet, Refills 0, Tot. Refills 0, Acute, NEEDED FOR SPASM, 08/25/20 9:53:00 EST, Route to Pharmacy Electronically, [facility] #[id number], 157, cm, 06/08/20 15:12:00 EST, Height, 84.5, kg, ... Start Date: 08/25/20 Status: Ordered Lidoderm 5% film 1 patch, Topically, Daily, (remove patch(s) after 12 hours), # 30 patch, 0 Refills, Maintenance, 10/12/20 11:07:00 EST, [facility] #[id number], Partial fill upon patient request if the prescription is for a schedule II opioid drug., 1 patch Topic... Start Date: 10/12/20 Status: Ordered ProAir HFA 90 mcg/inh inhalation aerosol with adapter 2, puffs, Inhalation, Every 4 hours, PRN, # 8.5 Gm, Refills 5, Tot. Refills 5, Maintenance, 08/04/20 12:45:00 EST, Aerosol, Route to Pharmacy Electronically, [id number], [facility] #[id number], 157, cm, 06/08/20 15:12:00... Start Date: 08/04/20 [...] # 18 tablet, 1 Refills, Soft Stop, [facility] #[id number], 157, cm, 07/31/19 8:49:00 EST, Height, 84.5, kg, 04/29/19 4:40:00 EDT, D... Start Date: 10/07/19 Status: Ordered Xulane 150 mcg-35 mcg/24 hr transdermal film, extended release 1 patch, Topically, Every week, # 3 each, 11 Refills, Maintenance, 05/26/20 10:54:00 EDT, [facility] #[id number], 1 patch Topically Every week,x7 days, 157, [...]
--- OUTSIDE RECORDS SUMMARY | 2023-11-16 17:20 | XMS_ITS | Continuity of Care Document ---
Author Organization [facility] Address [address] [place] [address]- Care Team Providers Care Mailroom Courier Name Role Phone Lorraine Zendejas MD Primary Care Physician [facility]counter [facility] Date(s): 04/04/23 - 05/04/23 [facility] [address] [address]- Allergies, Adverse Reactions, Alerts Substance Reaction Severity [...] 08/15/22 15:08:00 EST, Route to Pharmacy Electronically, [facility] #[id number], Partial fill upon patient request if the prescription... Start Date: 08/15/22 Status: Ordered Advair HFA 115 mcg / 21 mcg 2 puffs, Inhalation, 2 times a day, # 1 each, 5 Refills, Maintenance, 05/03/22 16:02:00 EDT, Aerosol, [facility] #[id number], Partial fill upon patient request if the prescription is for a schedule II opioid drug., 2 puffs Inhalation 2 times a da... Start Date: 05/03/22 Stop Date: 10/30/22 Status: Ordered albuterol 0.083% inhalation solution 3 mL = 2.5 mg, Inhalation, Every 6 hours, PRN Wheezing/Shortness of Breath, # 60 each, 1 Refills, Maintenance, 11/09/22 13:41:00 EDT, Solution, [facility] #[id number], Partial fill upon patient request if the prescription is for a schedule II opi... Start Date: 11/09/22 Status: Ordered cetirizine 5 mg oral tablet = 5 mg, By Mouth, Daily, # 30 tablet, 0 Refills, Maintenance, 11/17/22 10:48:00 EDT, Tablet, [facility] #[id number], Partial fill upon patient request if the prescription is for a schedule II opioid drug., 156, cm, 11/17/22 8:44:00 EDT, Height, 8... Start Date: 11/17/22 Status: Ordered Depakote 250 mg oral enteric coated tablet 1 tablet = 250 mg, By Mouth, 2 times a day, # 60 tablet, 3 Refills, Maintenance, 02/28/23 16:39:00 EDT, [facility] #[id number], Partial fill upon patient request if the prescription is for a schedule II opioid drug., 155, cm, 02/28/23 11:38:00 ED... Start Date: 02/28/23 Status: Ordered dicyclomine 20 mg oral tablet 1 tablet = 20 mg, By Mouth, 4 times a day, 30 to 60 minutes before meals, # 28 tablet, 4 Refills, Maintenance, 04/05/23 11:18:00 EDT, Tablet, [facility] #[id number], Partial fill upon patient request if the prescription is for a schedule II opioi... Start Date: 04/05/23 Stop Date: 05/10/23 Status: Ordered ibuprofen 400 mg oral tablet 400 mg, 1, tablet, By Mouth, Every 4 hours, PRN, # 60 tablet, Refills 0, Tot. Refills 0, Maintenance, for pain, 11/17/22 10:49:00 EDT, Route to Pharmacy Electronically, [facility] #[id number], Partial fill upon patient request if the prescription... Start Date: 11/17/22 Status: Ordered lidocaine 1.8% topical film 1 patch, Topically, Daily, leave on up to 12 hours, # 30 each, 0 Refills, Maintenance, 11/17/22 10:47:00 EDT, Film, [facility] #[id number], Partial fill upon patient request if the prescription is for a schedule II opioid drug., 1 patch Topically... Start Date: 11/17/22 Status: Ordered metroNIDAZOLE 0.75% topical gel 1 application, Topically, Daily at bedtime, use vaginal applicator to insert vaginally nightly for 5 nights, # 45 Gm, 0 Refills, Maintenance, 02/14/23 16:28:00 EDT, Gel, [facility] #[id number], Partial fill upon patient request if the prescriptio... Start Date: 02/14/23 Stop Date: 02/19/23 Status: Ordered metroNIDAZOLE 500 mg oral tablet 1 tablet = 500 mg, By Mouth, Every 12 hours, # 28 tablet, 0 Refills, Maintenance, 01/25/23 16:14:00EDT, Tablet, [facility] #[id number], Partial fill upon patient request if the prescription is for a schedule II opioid drug., 156, cm, 01/25/23 15... Start Date: 01/25/23 Stop Date: 02/08/23 Status: Ordered MiraLax oral powder for reconstitution = 17 Gm, By Mouth, Daily, dissolve in water before taking, # 527 Gm, 0 Refills, Maintenance, 11/17/22 10:47:00 EDT, REC Powder, [facility] #[id number], Partial fill upon patient request if the prescription is for a schedule II opioid drug., 17 Gm... Start Date: 11/17/22 Status: Ordered morphine 15 mg oral tablet, immediate release 1 tablet = 15 mg, By Mouth, Every 4 hours, PRN as needed for pain, # 10 tablet, 0 Refills, Maintenance, 04/03/23 19:18:00 EDT, Tablet, [facility] #[id number], Partial fill upon patient request if the prescription is for a schedule II opioid drug.... Start Date: 04/03/23 Status: Ordered ondansetron 4 mg oral tablet, disintegrating 1 tablet = 4 mg, By Mouth, Every 8 hours, PRN as needed for nausea/vomiting, # 10 tablet, 0 Refills, Maintenance, 04/03/23 19:22:00 EDT, DIS Tablet, [facility] #[id number], Partial fill upon patient request if the [...] Refills, Soft Stop, 01/25/23 10:30:00 EDT, Tablet, [facility] #0... Start Date: 01/25/23 Status: [...] Member Role: Lifetime Consulting Provider Address: Address: [address] [place] [id number] Name: Gauri Pascual Position: [facility] RN Member Role: Primary Care Nurse Name: Lorraine Zendejas MD Position: [facility] Physician - Primary Care Member Role: PCP Address: Address: [address] [place] [address]- [place] Care Team Related Persons Name: LENINKENDAL Address: home [address] [place] [address] Name: LENIN RELL Address: [address] [address] Name: RUSLAN ABREU Address: [id number] Address: home [address] [place] [address] [place] Name: NAY DEL ANGEL Address: home [address] [place] [address] Name: PRAVIN PARKER Address: home [address] [place] [address] Name: ADITHYA HAYDEN Address: [id number] Address: [address] [address] [place] Name: PRAVIN HAYDEN Address: home [address] [place] [address]
--- OUTSIDE RECORDS SUMMARY | 2023-11-16 17:20 | XMS_ITS | Continuity of Care Document ---
Author Organization [facility] Address [address] [place] [address]- Care Team Providers Care Professor In Family Studies Name Role Phone Aashish IBARRA, Lorraine Primary Care Physician Encounter [facility] Date(s): 11/10/20 - 11/17/20 [facility] [address] [place] [address] Attending Physician: Kenneth IBARRA, Alise Crain Admitting Physician: Alise Cooper MD Allergies, Adverse Reactions, Alerts Substance Reaction [...] Inactivated 04/05/01 Given Poliovirus Vaccine, Inactivated 1 3/16/98 Given Poliovirus Vaccine, Inactivated 2 97 Given [...] 5 Refills, Maintenance, 11/16/20 15:34:00 EDT, Aerosol, [facility] #[id number], Partial fill upon patient request if the prescription is for a schedule II opioid drug., 2 puffs Inhalation 2 times a d... Start Date: 11/16/20 Status: Ordered Ambien 5 mg oral tablet See Instructions, 1 tablet to take the night of in lab sleep study, after arrival to sleep lab, # 1tablet, 0 Refills, Acute 02/10/21 9:42:00 EDT, 11/11/20 9:41:00 EDT, [facility] #[id number], Partial fill upon patient request if the prescription... Start Date: 11/11/20 Stop Date: 02/10/21 Status: Ordered cyclobenzaprine 10 mg oral tablet 1, tablet, By Mouth, 3 times a day, PRN, # 45 tablet, Refills 0, Tot. Refills 0, Acute, NEEDED FOR SPASM, 08/25/20 9:53:00 EST, Route to Pharmacy Electronically, [facility] #[id number], 157, cm, 06/08/20 15:12:00 EST, Height, 84.5, kg, ... Start Date: 08/25/20 Status: Ordered Lidoderm 5% film 1 patch, Topically, Daily, (remove patch(s) after 12 hours), # 30 patch, 0 Refills, Maintenance, 10/12/20 11:07:00 EST, [facility] #[id number], Partial fill upon patient request if the prescription is for a schedule II opioid drug., 1 patch Topic... Start Date: 10/12/20 Status: Ordered ProAir HFA 90 mcg/inh inhalation aerosol with adapter 2, puffs, Inhalation, Every 4 hours, PRN, # 8.5 Gm, Refills 5, Tot. Refills 5, Maintenance, 08/04/20 12:45:00 EST, Aerosol, Route to Pharmacy Electronically, [id number], [facility] #[id number], 157, cm, 06/08/20 15:12:00... Start Date: 08/04/20 [...] # 18 tablet, 1 Refills, Soft Stop, [facility] #[id number], 157, cm, 07/31/19 8:49:00 EST, Height, 84.5, kg, 04/29/19 4:40:00 EDT, D... Start Date: 10/07/19 Status: Ordered Xulane 150 mcg-35 mcg/24 hr transdermal film, extended release 1 patch, Topically, Every week, # 3 each, 11 Refills, Maintenance, 05/26/20 10:54:00 EDT, [facility] #[id number], 1 patch Topically Every week,x7 days, 157, [...] Most recent to oldest [Reference Range]: 1 Height 157 cm (11/17/20 9:48 AM) Weight 82 kg (11/17/20 9:48 AM) Social History Social History Type Response Smoking Status Never smoker; Tobacc o user in household: No entered on: 12/05/16 Sex Female
--- OUTSIDE RECORDS SUMMARY | 2023-11-16 17:20 | XMS_ITS | Continuity of Care Document ---
Author Organization [facility] Address [address] [place] [address]- Care Team Providers Care Stationary Engineer Supervisor Name Role Phone Aashish IBARRA, Lorraine Primary Care Physician [phone] [facility] Date[facility]): [facility]22 - [facility] [address] [address]- Attending Physician: Not on Staff, Attending MD [...] 0 Refills, Maintenance, 03/18/22 15:18:00 EDT, [facility]ule, [facility][id number], Partial fill upon patient request if the prescription is for a schedule II opioid . Start Date: 03/18/22 Status: Ordered Advair HFA 115 mcg / 21 mcg 2 puffs, Inhalation, 2 times a day, # 60 each, 5 Refills, Maintenance, 11/25/21 15:15:00 EDT, Aerosol, [facility] #[id number], Partial fill upon patient request if the prescription is for a schedule II opioid drug., 2 puffs Inhalation 2 times a d... Start Date: 11/25/21 Status: Ordered Aspirin Low Dose 81 mg oral delayed release tablet 2 tablet, By Mouth, Daily, START AT 12 WEEKS, 09/11/21, # 90 tablet, 3 Refills, [facility] #[id number], 154, cm, 01/04/22 13:56:00 EDT, Height, 86.5, kg, 10/29/21 21:50:00 EDT, Dry Weight Start Date: 01/05/22 Status: Ordered clotrimazole 1% topical cream 1 application, Topically, 2 times a day, # 12 Gm, 0 Refills, Maintenance, 04/11/22 4:42:00 EDT, Cream, [facility] #[id number], Partial fill upon patient request if the prescription is for a schedule II opioid drug., 1 application Topically 2 time... Start Date: 04/11/22 Status: Ordered Colace sodium 100 mg oral capsule 100 mg, 1, capsule, By Mouth, 2 times a day, PRN, # 20 capsule, Refills 0, Tot. Refills 0, Maintenance, for constipation, 03/18/22 15:18:00 EDT, Route to Pharmacy Electronically, [facility]#[id number], Partial fill upon patient request if the pr... Start Date: 03/18/22 Status: Ordered Dilaudid 2 mg oral tablet 1 tablet = 2 mg, By Mouth, Every 4 hours, # 10 tablet, 0 Refills, Maintenance, 03/18/22 18:17:00 EDT, Tablet, [facility] #[id number], Partial fill upon patient request if the prescription is fora schedule II opioid drug., 154, cm, 03/18/22 11:26... Start Date: 03/18/22 Status: Ordered ferrous sulfate 325 mg oral tablet 1 tablet = 325 mg, By Mouth, Daily, # 30 tablet, 3 Refills, Maintenance, 01/05/22 12:46:00 EDT, Tablet, [facility] #[id number], Partial fill upon patient request if the prescription is for a schedule II opioid drug., 154, cm, 01/04/22 13:56:00 ED... Start Date: 01/05/22 Status: Ordered ibuprofen 600 mg oral tablet 600 mg, 1, tablet, By Mouth, Every 6 hours, # 50 tablet, Refills 0, Tot. Refills 0, Maintenance, 03/18/22 15:18:00 EDT, Route to Pharmacy Electronically, [facility] #[id number], Partial fill upon patient request if the prescription is for a sched... Start Date: 03/18/22 Status: Ordered magnesium oxide 400 mg oral tablet 1 tablet = 400 mg, By Mouth, Daily, for 30 days, to treat and prevent headaches, # 30 tablet, 3 Refills, Acute 06/22/22 19:25:00 EST, 02/22/22 19:25:00 EDT, Tablet, [facility] #[id number], Partial fill upon patient request if the prescription is... Start Date: 02/22/22 Stop Date: 06/22/22 Status: Ordered MiraLax oral powder for reconstitution = 17 Gm, By Mouth, Daily, dissolve in water before taking, # 527 Gm, 0 Refills, Maintenance, 08/16/21 13:56:00 EST, REC Powder, [facility] #[id number], Partial fill upon patient request if the prescription is for a schedule II opioid drug., 17 Gm... Start Date: 08/16/21 Status: Ordered Multivitamins with Folic Acid 1 mg oral tablet 1 tablet, By Mouth, Daily, # 90 tablet, 3 Refills, Maintenance, 09/16/21 15:48:00 EST, Tablet, [facility] #[id number], Partial fill upon patient request if the prescription is for a schedule II opioid drug., 1 tablet By Mouth Daily, 157, cm, 0... Start Date: 09/16/21 Status: Ordered ProAir HFA 90 mcg/inh inhalation aerosol with adapter 2, puffs, Inhalation, Every 4 hours, PRN, # 8.5 Gm, Refills 2, Tot. Refills 2, Maintenance, 11/25/21 15:15:00 EDT, Aerosol, Route to Pharmacy Electronically, [id number], [email or web address] #[id number], 154, cm, 11/25/21 14:53:00... Start Date: 11/25/21 Status: Ordered simethicone 125 mg oral tablet, chewable 1 tablet = 125 mg, Chew, 4 times a day, # 48 tablet, 0 Refills, Maintenance, 03/18/22 15:18:00 EDT,Chew Tablet, [email or web address] #[id number], Partial fill upon patient request if the [...] 0 Refills, Maintenance, 03/18/22 15:18:00 EDT, Cream, [facility] #[id number], Partial fill upon patient request if the prescription is for a schedule II opioid drug., 1 application Topically 2 ti... Start Date: 03/18/22 Status: Ordered Problem List Condition Effective Dates Status Health Status Inform ant Anemia(Confirmed) Active Asthma(Confirmed) Active Depression(Confirmed) Active Headache(Confirmed) Active History of pre-eclampsia(Confirmed) Active Obese class I(Confirmed) Active Uterine scar from previous c esarean delivery(Confirmed) Active Social History Social History Type Response Smoking Status Never (less than 100 in lifetime) entered on: 02/15/22 Sex Care Team Personnel Name: Lorraine Zendejas MD Address: [address] [place] [address]
--- OUTSIDE RECORDS SUMMARY | 2023-11-16 17:20 | XMS_ITS | Continuity of Care Document ---
Author Organization [facility] Address [address] [place] [address]- Care Team Providers Care Sheet Cutter Name Role Phone Lorraine Zendejas MD Primary Care Physician [phone] Encounter [facility] Date(s): 10/29/20 - 11/28/[address] [address]- Attending Physician: Roque Villela Admitting Physician: Roque [...] 5 Refills, Maintenance, 11/16/20 15:34:00 EDT, Aerosol, [facility] #[id number], Partial fill upon patient request if the prescription is for a schedule II opioid drug., 2 puffs Inhalation 2 times a d... Start Date: 11/16/20 Status: Ordered Ambien 5 mg oral tablet See Instructions, 1 tablet to take the night of in lab sleep study, after arrival to sleep lab, # 1tablet, 0 Refills, Acute 02/10/21 9:42:00 EDT, 11/11/20 9:41:00 EDT, [facility] #[id number], Partial fill upon patient request if the prescription... Start Date: 11/11/20 Stop Date: 02/10/21 Status: Ordered cyclobenzaprine 10 mg oral tablet 1, tablet, By Mouth, 3 times a day, PRN, # 45 tablet, Refills 0, Tot. Refills 0, Acute, NEEDED FOR SPASM, 08/25/20 9:53:00 EST, Route to Pharmacy Electronically, [facility] #[id number], 157, cm, 06/08/20 15:12:00 EST, Height, 84.5, kg, ... Start Date: 08/25/20 Status: Ordered Lidoderm 5% film 1 patch, Topically, Daily, (remove patch(s) after 12 hours), # 30 patch, 0 Refills, Maintenance, 10/12/20 11:07:00 EST, [facility] #[id number], Partial fill upon patient request if the prescription is for a schedule II opioid drug., 1 patch Topic... Start Date: 10/12/20 Status: Ordered ProAir HFA 90 mcg/inh inhalation aerosol with adapter 2, puffs, Inhalation, Every 4 hours, PRN, # 8.5 Gm, Refills 5, Tot. Refills 5, Maintenance, 08/04/20 12:45:00 EST, Aerosol, Route to Pharmacy Electronically, [id number], [facility] #[id number], 157, cm, 06/08/20 15:12:00... Start Date: 08/04/20 [...] # 18 tablet, 1 Refills, Soft Stop, [facility] #[id number], 157, cm, 07/31/19 8:49:00 EST, Height, 84.5, kg, 04/29/19 4:40:00 EDT, D... Start Date: 10/07/19 Status: Ordered Xulane 150 mcg-35 mcg/24 hr transdermal film, extended release 1 patch, Topically, Every week, # 3 each, 11 Refills, Maintenance, 05/26/20 10:54:00 EDT, [facility] #[id number], 1 patch Topically Every week,x7 days, 157, [...]
--- OUTSIDE RECORDS SUMMARY | 2023-11-16 17:20 | XMS_ITS | Continuity of Care Document ---
Author Organization [facility] Address [address] [place] [address]- Care Team Providers Care Fagot Maker Name Role Phone Aashish IBARRA, Lorraine Primary Care Physician [facility]counter [facility] Date(s): 11/08/21 - 02/17/22 [facility] [address] [address]- Attending Physician: Not on Staff, Attending MD [...] vaccine 12/15/20 R ecorded pneumococcal 23-valent vaccine 11/13/18 Given Human Papillomavirus Vaccine 01/29/14 Given Human [...] 5 Refills, Maintenance, 11/25/21 15:15:00 EDT, Aerosol, [facility] #[id number], Partial fill upon patient request if the prescription is for a schedule II opioid drug., 2 puffs Inhalation 2 times a d... Start Date: 11/25/21 Status: Ordered Aspirin Low Dose 81 mg oral delayed release tablet 2 tablet, By Mouth, Daily, START AT 12 WEEKS, 09/11/21, # 90 tablet, 3 Refills, [facility] #[id number], 154, cm, 01/04/22 13:56:00 EDT, Height, 86.5, kg, 10/29/21 21:50:00 EDT, Dry Weight Start Date: 01/05/22 Status: Ordered ferrous sulfate 325 mg oral tablet 1 tablet = 325 mg, By Mouth, Daily, # 30 tablet, 3 Refills, Maintenance, 01/05/22 12:46:00 EDT, Tablet, [facility] #[id number], Partial fill upon patient request if the prescription is for a schedule II opioid drug., 154, cm, 01/04/22 13:56:00 ED... Start Date: 01/05/22 Status: Ordered Lidoderm 5% film 1 patch, Topically, Daily, (remove patch(s) after 12 hours), # 30 patch, 5 Refills, Maintenance, 11/25/21 15:09:00 EDT, [facility] #[id number], Partial fill upon patient request if the prescription is for a schedule II opioid drug., 1 patch Topic... Start Date: 11/25/21 Status: Ordered MiraLax oral powder for reconstitution = 17 Gm, By Mouth, Daily, dissolve in water before taking, # 527 Gm, 0 Refills, Maintenance, 08/16/21 13:56:00 EST, REC Powder, [facility] #[id number], Partial fill upon patient request if the prescription is for a schedule II opioid drug., 17 Gm... Start Date: 08/16/21 Status: Ordered Multivitamins with Folic Acid 1 mg oral tablet 1 tablet, By Mouth, Daily, # 90 tablet, 3 Refills, Maintenance, 09/16/21 15:48:00 EST, Tablet, [facility] #[id number], Partial fill upon patient request if the prescription is for a schedule II opioid drug., 1 tablet By Mouth Daily, 157, cm, 0... Start Date: 09/16/21 Status: Ordered ProAir HFA 90 mcg/inh inhalation aerosol with adapter 2, puffs, Inhalation, Every 4 hours, PRN, # 8.5 Gm, Refills 2, Tot. Refills 2, Maintenance, 11/25/21 15:15:00 EDT, Aerosol, Route to Pharmacy Electronically, [id number], [facility] #[id number], 154, cm, 11/25/21 14:53:00... Start Date: 11/25/21 [...] 1 Refills, Maintenance, 01/08/22 14:18:00 EDT, Capsule, [facility] #[id number], Partial fill upon patient request if the [...]
--- OUTSIDE RECORDS SUMMARY | 2023-11-16 17:20 | XMS_ITS | Continuity of Care Document ---
Author Organization [facility] Address [address] [place] [address]- Care Team Providers Care Oncology Nurse Name Role Phone Aashish IBARRA, Lorraine Primary Care Physician [phone] [facility] Date[facility]): [facility] [address] [address]- Allergies, Adverse Reactions, Alerts Substance Reaction Severity [...] 5 Refills, Maintenance, 11/25/21 15:15:00 EDT, Aerosol, [facility] #[id number], Partial fill upon patient request if the prescription is for a schedule II opioid drug., 2 puffs Inhalation 2 times a d... Start Date: 11/25/21 Status: Ordered Aspirin Low Dose 81 mg oral delayed release tablet 2 tablet, By Mouth, Daily, START AT 12 WEEKS, 09/11/21, # 90 tablet, 3 Refills, [facility] #[id number], 154, cm, 01/04/22 13:56:00 EDT, Height, 86.5, kg, 10/29/21 21:50:00 EDT, Dry Weight Start Date: 01/05/22 Status: Ordered ferrous sulfate 325 mg oral tablet 1 tablet = 325 mg, By Mouth, Daily, # 30 tablet, 3 Refills, Maintenance, 01/05/22 12:46:00 EDT, Tablet, [facility] #[id number], Partial fill upon patient request if the prescription is for a schedule II opioid drug., 154, cm, 01/04/22 13:56:00 ED... Start Date: 01/05/22 Status: Ordered Lidoderm 5% film 1 patch, Topically, Daily, (remove patch(s) after 12 hours), # 30 patch, 5 Refills, Maintenance, 11/25/21 15:09:00 EDT, [facility] #[id number], Partial fill upon patient request if the prescription is for a schedule II opioid drug., 1 patch Topic... Start Date: 11/25/21 Status: Ordered MiraLax oral powder for reconstitution = 17 Gm, By Mouth, Daily, dissolve in water before taking, # 527 Gm, 0 Refills, Maintenance, 08/16/21 13:56:00 EST, REC Powder, [facility] #[id number], Partial fill upon patient request if the prescription is for a schedule II opioid drug., 17 Gm... Start Date: 08/16/21 Status: Ordered Multivitamins with Folic Acid 1 mg oral tablet 1 tablet, By Mouth, Daily, # 90 tablet, 3 Refills, Maintenance, 09/16/21 15:48:00 EST, Tablet, [facility] #[id number], Partial fill upon patient request if the prescription is for a schedule II opioid drug., 1 tablet By Mouth Daily, 157, cm, 0... Start Date: 09/16/21 Status: Ordered ProAir HFA 90 mcg/inh inhalation aerosol with adapter 2, puffs, Inhalation, Every 4 hours, PRN, # 8.5 Gm, Refills 2, Tot. Refills 2, Maintenance, 11/25/21 15:15:00 EDT, Aerosol, Route to Pharmacy Electronically, [id number], [facility] #[id number], 154, cm, 11/25/21 14:53:00... Start Date: 11/25/21 [...] 1 Refills, Maintenance, 01/08/22 14:18:00 EDT, Capsule, [facility] #[id number], Partial fill upon patient request if the [...]
--- OUTSIDE RECORDS SUMMARY | 2023-11-16 17:20 | XMS_ITS | Continuity of Care Document ---
Author Organization [facility] Address [address] [place] [address]- Care Team Providers Care Food Service Worker Name Role Phone Lorranie Zendejas MD Primary Care Physician [phone] Encounter [facility] ACCT R [id number] Date(s): 11/25/21 - 12/25/[address] [address]- Attending Physician: Roque Villela Admitting Physician: AdmtrRoque [...] 5 Refills, Maintenance, 11/25/21 15:15:00 EDT, Aerosol, [facility] #[id number], Partial fill upon patient request if the prescription is for a schedule II opioid drug., 2 puffs Inhalation 2 times a d... Start Date: 11/25/21 Status: Ordered aspirin 81 mg oral delayed release tablet 2 tablet = 162 mg, By Mouth, Daily, start at 12 weeks, 09/11/21, # 90 tablet, 0 Refills, Maintenance,08/16/21 13:37:00 EST, CR Tablet, [facility] #[id number], Partial fill upon patient request ifthe prescription is for a schedule II opioid drug.,... Start Date: 08/16/21 Status: Ordered Benadryl 25 mg oral capsule 2 capsule = 50 mg, By Mouth, Daily at bedtime, PRN Pain , Moderate, # 100 capsule, 0 Refills, Maintenance, 11/08/21 15:02:00 EDT, Capsule, [facility] #[id number], Partial fill upon patient request if the prescription is for a schedule II opioid d... Start Date: 11/08/21 Status: Ordered clotrimazole 1% vaginal cream with applicator 1 application, Vaginally, Daily at bedtime, Apply vaginally each night for 1 week., # 45 Gm, 0 Refills, Maintenance, 10/12/21 14:02:00 EST, Cream, [facility] #[id number], Partial fill upon patient request if the prescription is for a schedule II... Start Date: 10/12/21 Status: Ordered Lidoderm 5% film 1 patch, Topically, Daily, (remove patch(s) after 12 hours), # 30 patch, 5 Refills, Maintenance, 11/25/21 15:09:00 EDT, [facility] #[id number], Partial fill upon patient request if the prescription is for a schedule II opioid drug., 1 patch Topic... Start Date: 11/25/21 Status: Ordered MiraLax oral powder for reconstitution = 17 Gm, By Mouth, Daily, dissolve in water before taking, # 527 Gm, 0 Refills, Maintenance, 08/16/21 13:56:00 EST, REC Powder, [facility] #[id number], Partial fill upon patient request if the prescription is for a schedule II opioid drug., 17 Gm... Start Date: 08/16/21 Status: Ordered Multivitamins with Folic Acid 1 mg oral tablet 1 tablet, By Mouth, Daily, # 90 tablet, 3 Refills, Maintenance, 09/16/21 15:48:00 EST, Tablet, [facility] #[id number], Partial fill upon patient request if the prescription is for a schedule II opioid drug., 1 tablet By Mouth Daily, 157, cm, 02/0... Start Date: 09/16/21 Status: Ordered Multivitamins with Vitamin B Complex, Vitamin C, Minerals and L- Methylfolate oral capsule 1 capsule, By Mouth, Daily, # 30 capsule, 11 Refills, Maintenance, 08/05/21 17:50:00 EST, Capsule, [facility] #[id number], Partial fill upon patient request if the prescription is for a scheduleII opioid drug., 1 capsule By Mouth Daily, 157, cm,... Start Date: 08/05/21 Status: Ordered ProAir HFA 90 mcg/inh inhalation aerosol with adapter 2, puffs, Inhalation, Every 4 hours, PRN, # 8.5 Gm, Refills 2, Tot. Refills 2, Maintenance, 11/25/21 15:15:00 EDT, Aerosol, Route to Pharmacy Electronically, [id number], [facility] #[id number], 154, cm, 11/25/21 14:53:00... Start Date: 11/25/21 Status: Ordered Reglan 5 mg oral tablet 2 tablet = 10 mg, By Mouth, Once, # 28 tablet, 0 Refills, Soft Stop, 11/08/21 15:03:00 EDT, Tablet,[facility] #[id number], Partial fill upon patient request if the [...]
--- OUTSIDE RECORDS SUMMARY | 2023-11-16 17:20 | XMS_ITS | Continuity of Care Document ---
Author Organization [facility] Address [address] [place] [address]- Care Team Providers Care Huc Name Role Phone Aashish IBARRA, Lorraine Primary Care Physician Encounter [facility] Date(s): 07/03/22 - 08/02/22 [facility] [address] [address]- Allergies, Adverse Reactions, Alerts Substance Reaction Severity [...] 0 Refills, Maintenance, 05/17/22 15:05:00 EDT, Capsule, [facility] #[id number], Partial fill upon patient request if the prescription is for a schedule II opioid . Start Date: 05/17/22 Status: Ordered Advair HFA 115 mcg / 21 mcg 2 puffs, Inhalation, 2 times a day, # 1 each, 5 Refills, Maintenance, 05/03/22 16:02:00 EDT, Aerosol, [facility] #[id number], Partial fill upon patient request if the prescription is for a schedule II opioid drug., 2 puffs Inhalation 2 times a da... Start Date: 05/03/22 Stop Date: 10/30/22 Status: Ordered albuterol CFC free 90 mcg/inh inhalation aerosol 2, puffs, Inhalation, Every 6 hours, PRN, # 8.5 Gm, Refills 11, Tot. Refills 11, Maintenance, 05/03/22 11:45:00 EDT, Aerosol, Route to Pharmacy Electronically, [id number], [facility] #[id number], dispense brand preferred... Start Date: 05/03/22 Stop Date: 04/28/23 Status: Ordered clotrimazole 1% topical cream 1 application, Topically, 2 times a day, # 12 Gm, 0 Refills, Maintenance, 04/11/22 4:42:00 EDT, Cream, [facility] #[id number], Partial fill upon patient request if the prescription is for a schedule II opioid drug., 1 application Topically 2 time... Start Date: 04/11/22 Status: Ordered Colace sodium 100 mg oral capsule 100 mg, 1, capsule, By Mouth, 2 times a day, PRN, # 20 capsule, Refills 0, Tot. Refills 0, Maintenance, for constipation, 03/18/22 15:18:00 EDT, Route to Pharmacy Electronically, [facility]#[id number], Partial fill upon patient request if the pr... Start Date: 03/18/22 Status: Ordered Dilaudid 2 mg oral tablet 1 tablet = 2 mg, By Mouth, Every 4 hours, # 10 tablet, 0 Refills, Maintenance, 03/18/22 18:17:00 EDT, Tablet, [facility] #[id number], Partial fill upon patient request if the prescription is fora schedule II opioid drug., 154, cm, 03/18/22 11:26... Start Date: 03/18/22 Status: Ordered ferrous sulfate 325 mg oral tablet 1 tablet = 325 mg, By Mouth, Daily, # 30 tablet, 3 Refills, Maintenance, 01/05/22 12:46:00 EDT, Tablet, [facility] #[id number], Partial fill upon patient request if the prescription is for a schedule II opioid drug., 154, cm, 01/04/22 13:56:00 ED... Start Date: 01/05/22 Status: Ordered ibuprofen 600 mg oral tablet 600 mg, 1, tablet, By Mouth, Every 6 hours, # 50 tablet, Refills 0, Tot. Refills 0, Maintenance, 03/18/22 15:18:00 EDT, Route to Pharmacy Electronically, [facility] #[id number], Partial fill upon patient request if the prescription is for a sched... Start Date: 03/18/22 Status: Ordered MiraLax oral powder for reconstitution = 17 Gm, By Mouth, Daily, dissolve in water before taking, # 527 Gm, 0 Refills, Maintenance, 08/16/21 13:56:00 EST, REC Powder, [facility] #[id number], Partial fill upon patient request if the prescription is for a schedule II opioid drug., 17 Gm... Start Date: 08/16/21 Status: Ordered Multivitamins with Folic Acid 1 mg oral tablet 1 tablet, By Mouth, Daily, # 90 tablet, 3 Refills, Maintenance, 05/03/22 12:05:00 EDT, Tablet, [facility] #[id number], Partial fill upon patient request if the prescription is for a schedule II opioid drug., 1 tablet By Mouth Daily,x90 days, 157,... Start Date: 05/03/22 Stop Date: 04/28/23 Status: Ordered simethicone 125 mg oral tablet, chewable 1 tablet = 125 mg, Chew, 4 times a day, # 48 tablet, 0 Refills, Maintenance, 03/18/22 15:18:00 EDT,Chew Tablet, [facility] #[id number], Partial fill upon patient request if the [...] 03/18/22 15:18:00 EDT, Cream, [facility] #[id number], Partial fill upon patient request if the [...] Care Team Personnel Name: Gauri Pascual Position: [facility] RN Member Role: Primary Care Nurse Name: Lorraine Zendejas MD Position: [facility] Primary Care Physician Member Role: PCP Address: Address: [address] [place] [address]- Care Team Related Persons Name: RELL PHELPS Address: [address] [address] Name: RUSLAN ABREU Address: [address] Address: [place] [address] [address] [place] Name: NAY DEL ANGEL Address: [address] [place] [address] Name: PRAVIN PARKER Address: home [address] [place] [address] Name: ADITHYA HAYDEN Address: [address] Address: [address] [address] [place] Name: PRAVIN HAYDEN Address: [address] [place] [address]
--- OUTSIDE RECORDS SUMMARY | 2023-11-16 17:20 | XMS_ITS | Continuity of Care Document ---
Author Organization [facility] Address [address] [place] [address]- Care Team Providers Care Power Shovel Operator Name Role Phone Lorraine Zendejas MD Primary Care Physician Encounter [facility] Date(s): 05/29/23 - 05/29/[address] [address]- Encounter Diagnosis Asthma exacerbation(Final) - 05/29/23 Nausea(Final) - 05/29/23 Gastritis(Final) - 05/29/23 Hepatic steatosis(Final) - 05/29/23 Discharge Disposition: A-D/C Home Attending Physician: Joreg Garcia DO Admitting Physician: Jorge Garcia DO Referring Physician: Not on Staff, Referring MD [...] 08/15/22 15:08:00 EST, Route to Pharmacy Electronically, [facility] #[id number], Partial fill upon patient request if the prescription... Start Date: 08/15/22 Status: Ordered Advair HFA 115 mcg / 21 mcg 2 puffs, Inhalation, 2 times a day, # 1 each, 5 Refills, Maintenance, 05/03/22 16:02:00 EDT, Aerosol, [facility] #[id number], Partial fill upon patient request if the prescription is for a schedule II opioid drug., 2 puffs Inhalation 2 times a da... Start Date: 05/03/22 Stop Date: 10/30/22 Status: Ordered albuterol 0.083% inhalation solution 3 mL = 2.5 mg, Inhalation, Every 6 hours, PRN Wheezing/Shortness of Breath, # 60 each, 1 Refills, Maintenance, 11/09/22 13:41:00 EDT, Solution, [facility] #[id number], Partial fill upon patient request if the prescription is for a schedule II opi... Start Date: 11/09/22 Status: Ordered albuterol 0.083% inhalation solution 3 mL = 2.5 mg, Inhalation, Every 6 hours, PRN for wheezing, # 25 each, 0 Refills, Maintenance, 05/29/23 20:07:00 EDT, Solution, [facility] #[id number], Partial fill upon patient request if the prescription is for a schedule II opioid drug., 156,... Start Date: 05/29/23 Status: Ordered cetirizine 5 mg oral tablet = 5 mg, By Mouth, Daily, # 30 tablet, 0 Refills, Maintenance, 11/17/22 10:48:00 EDT, Tablet, [facility] #[id number], Partial fill upon patient request if the prescription is for a schedule II opioid drug., 156, cm, 11/17/22 8:44:00 EDT, Height, 8... Start Date: 11/17/22 Status: Ordered Depakote 250 mg oral enteric coated tablet 1 tablet = 250 mg, By Mouth, 2 times a day, # 60 tablet, 3 Refills, Maintenance, 02/28/23 16:39:00 EDT, [facility] #[id number], Partial fill upon patient request if the prescription is for a schedule II opioid drug., 155, cm, 02/28/23 11:38:00 ED... Start Date: 02/28/23 Status: Ordered dicyclomine 20 mg oral tablet 1 tablet = 20 mg, By Mouth, 4 times a day, 30 to 60 minutes before meals, # 28 tablet, 4 Refills, Maintenance, 04/05/23 11:18:00 EDT, Tablet, [facility] #[id number], Partial fill upon patient request if the prescription is for a schedule II opioi... Start Date: 04/05/23 Stop Date: 05/10/23 Status: Ordered ibuprofen 400 mg oral tablet 400 mg, 1, tablet, By Mouth, Every 4 hours, PRN, # 60 tablet, Refills 0, Tot. Refills 0, Maintenance, for pain, 11/17/22 10:49:00 EDT, Route to Pharmacy Electronically, [facility] #[id number], Partial fill upon patient request if the prescription... Start Date: 11/17/22 Status: Ordered lidocaine 1.8% topical film 1 patch, Topically, Daily, leave on up to 12 hours, # 30 each, 0 Refills, Maintenance, 11/17/22 10:47:00 EDT, Film, [email or web address] #[id number], Partial fill upon patient request if the prescription is for a schedule II opioid drug., 1 patch Topically... Start Date: 11/17/22 Status: Ordered metroNIDAZOLE 0.75% topical gel 1 application, Topically, Daily at bedtime, use vaginal applicator to insert vaginally nightly for 5 nights, # 45 Gm, 0 Refills, Maintenance, 02/14/23 16:28:00 EDT, Gel, [email or web address] #[id number], Partial fill upon patient request if the prescriptio... Start Date: 02/14/23 Stop Date: 02/19/23 Status: Ordered metroNIDAZOLE 500 mg oral tablet 1 tablet = 500 mg, By Mouth, Every 12 hours, # 28 tablet, 0 Refills, Maintenance, 01/25/23 16:14:00EDT, Tablet, [facility] #[id number], Partial fill upon patient request if the prescription is for a schedule II opioid drug., 156, cm, 01/25/23 15... Start Date: 01/25/23 Stop Date: 02/08/23 Status: Ordered MiraLax oral powder for reconstitution = 17 Gm, By Mouth, Daily, dissolve in water before taking, # 527 Gm, 0 Refills, Maintenance, 11/17/22 10:47:00 EDT, REC Powder, [facility] #[id number], Partial fill upon patient request if the prescription is for a schedule II opioid drug., 17 Gm... Start Date: 11/17/22 Status: Ordered morphine 15 mg oral tablet, immediate release 1 tablet = 15 mg, By Mouth, Every 4 hours, PRN as needed for pain, # 10 tablet, 0 Refills, Maintenance, 04/03/23 19:18:00 EDT, Tablet, [facility] #[id number], Partial fill upon patient request if the prescription is for a schedule II opioid drug.... Start Date: 04/03/23 Status: Ordered Mylanta Coat & Cool 1200 mg-270 mg-80 mg/10 mL oral suspension 10 mL, By Mouth, 2 times a day, PRN as needed for indigestion, for 3 days, # 355 mL, 0 Refills, Acute 06/01/23 20:06:00 EDT, 05/29/23 20:06:00 EDT, Suspension, [facility] #[id number], Partial fill upon patient request if the prescription is for a... Start Date: 05/29/23 Stop Date: 06/01/23 Status: Ordered ondansetron 4 mg oral tablet 1 tablet = 4 mg, By Mouth, Every 8 hours, PRN Nausea & Vomiting, # 10 tablet, 0 Refills, Acute 06/01/23 20:30:00 EDT, 05/29/23 20:06:00 EDT, Tablet, [facility] #[id number], Partial fill uponpatient request if the prescription is for a schedule I... Start Date: 05/29/23 Stop Date: 06/01/23 Status: Ordered ondansetron 4 mg oral tablet, disintegrating 1 tablet = 4 mg, By Mouth, Every 8 hours, PRN as needed for nausea/vomiting, # 10 tablet, 0 Refills, Maintenance, 04/03/23 19:22:00 EDT, DIS Tablet, [facility] #[id number], Partial fill upon patient request if the prescription is for a schedule I... Start Date: 04/03/23 Status: Ordered predniSONE 20 mg oral tablet 1 tablet = 20 mg, By Mouth, 2 times a day, # 10 tablet, 0 Refills, Soft Stop, 05/29/23 20:12:00 EDT, Tablet, [facility] #[id number], Partial fill upon patient request if the [...] Refills, Soft Stop, 01/25/23 10:30:00 EDT, Tablet, [facility] #0... Start Date: 01/25/23 Status: Ordered [...] Exam Date Time Procedure Performing Provider Status 05/29/23 5:27 PM US RUQ Marlene Bradshaw; Au th (Verified) Notes: (US RUQ) Reason For Exam: Abdominal Pain;Other: RESULT: US RUQ US RUQ Hx of Present Illness: epigastric pain; Reason: Other:; Abdominal Pain; Clinical Question(s): Cholecystitis COMPARISON: 04/03/2023 CT. FINDINGS: Liver: Diffusely echogenic parenchyma with focal sparing around the gallbladder. No suspicious lesion. Linear shadowing structure within the liver correlates with branching on prior CT. Smooth hepatic contour. Main portal vein patent with normal hepatopetal direction of flow. Gallbladder: No gallstones. Normal wall thickness. No pericholecystic fluid. Negative Borjas sign. Biliary Tree: No intrahepatic or extrahepatic bile duct dilation is identified. Common duct measures: 0.4 cm. Pancreas: No abnormality in the visualized portions of the pancreas. Right kidney: 11.5 cm in length. Normal parenchymal echotexture and thickness. No hydronephrosis, stone or mass. IMPRESSION: No evidence of acute cholecystitis. No gallstones. Normal appearance of the gallbladder. Diffuse fatty infiltration of the liver. WSN: [id number] Ordering Physician: Magaly Piper Dictated By: Michelle James MD Dictated Date/Time: 05/29/23 7:49 pm Reviewed By: Michelle James MD Signed By: Michelle James MD Signed Date/Time: 05/29/23 7:49 pm Transcribed By: CHARLIE Transcribed Date/Time: 05/29/23 7:45 pm * Exam Date Time Procedure Performing Provider Status 05/29/23 3:46 PM Chest 2 Views Frontal and Lat Nathan Ames (Verified) Notes: (Chest 2 Views Frontal and Lat) Reason For Exam: Abdominal Pain RESULT: Chest 2 Views Frontal and Lat Chest 2 Views Frontal and Lat CLINICAL INDICATION: Reason: Abdominal Pain; Clinical Question(s): Other:; Abd Free Air COMPARISON: Chest x-ray, 02/28/2023. FINDINGS: The cardiac silhouette is within normal limits. Hilar and mediastinal contours are normal. The lungs are clear. There is no pleural effusion, pneumothorax, or evidence of CHF. No acute osseous abnormality is noted. There is no free air under the diaphragms. IMPRESSION: No acute cardiopulmonary process. No free air under the diaphragms. WSN: [id number] Ordering Physician: Jorge Garcia Dictated By: Lois Gordon MD Dictated Date/Time: 05/29/23 3:49 pm Reviewed By: Lois Gordon MD Signed By: Lois Gordon MD Signed Date/Time: 05/29/23 3:49 pm Transcribed By: CHARLIE Transcribed Date/Time: 05/29/23 3:48 pm Vital Signs Most recent to oldest [Reference Range]: 1 2 3 Height 156 cm (05/29/23 6:08 PM) 156 cm (05/29/23 4:20 PM) 156 cm (05/29/23 1:34 PM) Weight 84 kg (05/29/23 6:08 PM) 84 kg (05/29/23 4:20 PM) 84 kg (05/29/23 1:34 PM) Oxygen Saturation [94-100 %] 100 % (05/29/23 6:08 PM) 100 % (05/29/23:34 PM) Pulse Rate [55-90 bpm] 79 bpm (05/29/23 6:08 PM) 88 bpm (05/29/23 1:34 PM) Body Mass Index [18.5-24.99 kg/m2] 34.52 kg/m2 *>HHI* (05/29/23 6:08 PM) 34.52 kg/m2 *>HHI* (05/29/23 1:34 PM) Blood Pressure [90-138/55-84 mm Hg] 125/65mm Hg (05/29/23 6:08 PM) 139/69mm Hg *H* (05/29/23 1:34 PM) Respiratory Rate [16-30 br/min] 16 br/min (05/29/23 6:08 PM) 18 br/min (05/29/23 1:34 PM) Temperature [96.8-100.4 DegF] 98.5 DegF (05/29/23 6:08 PM) 98.4 DegF (05/29/23:34 PM) Mode of Delivery (Oxygen) Room air (05/29/23 6:08 PM) Room air (05/29/23:34 PM) Blood pressure sites Arm, left (05/29/23 6:08 PM) Arm, right (05/29/23 1:34 PM) Temperature Route Oral (05/29/23 6:08 PM) Oral (05/29/23 1:34 PM) Dry Weight 84 kg (05/29/23 6:08 PM) 84 kg (05/29/23 4:20 PM) 84 kg (05/29/23 1:34 PM) Weight Obtained Via Patient/family state d (05/29/23 1:34 PM) Dry Weight Obtained Via Patient/family s tated (05/29/23 1:34 PM) Social History Social History Type Response Smoking Status Never (less than 100 in lifetime) entered on: 02/15/22 Sex Female Note * Magaly Collins: PERFORM Event Display: Patient Education Leaflets Authored Date: [id number] Gastritis (Adult) ?? [id number] Gastritis (Adult) Gastritis is??inflammation and??irritation of the stomach lining. You can have it for a short time (acute) or it can be long lasting (chronic). Infection with bacteria called??H. pylori most often causes gastritis.??More than 1 out of 3 people in the [place] have these bacteria in their bodies. In many cases,??H. pylori??causes no problems or symptoms. But in some people, the infection irritates thestomach lining and causes gastritis. H. pylori may be diagnosed through blood, stool, or breath tests, or by a biopsy during an endoscopy. Other causes of stomach irritation include drinking alcohol,smoking or chewing tobacco, or taking pain-relieving medicines called nonsteroidal anti-inflammatory drugs (NSAIDs), such as aspirin or ibuprofen. Some illegal drugs (such as cocaine) and immune conditions can also cause gastritis. Symptoms of gastritis can include: ??? Belly pain or bloating ??? Feeling full quickly ??? Loss of appetite ??? Weight loss ??? Nauseaor vomiting ??? Vomiting blood or having black stools ??? Feeling more tired than normal An inflamed and irritated stomach lining is more likely to develop a sore called an ulcer. To help prevent this, gastritis should be evaluated and treated as soon as symptoms occur. Home care If needed, your healthcare provider may prescribe medicines. If you have??H. pylori??infection, treating it will likely ease your symptoms. Other changes can help reduce stomach irritation and help it heal. ??? Take prescription medicines as directed. If you have been prescribed medicines for??H. pylori??infection, take them as directed. Take all of the medicine until it's finished or until your provider tells you to stop taking it, even if you start to feel better. ??? Follow your healthcare provider's advice on NSAIDs. Your provider may advise you not to take NSAIDs such as ibuprofen. If you take daily aspirin for your heart or other health reasons, don't stop without talking with your provider first. ??? Don't drink alcohol. If you need help stopping your use of alcohol, ask your provider for treatment resources. ??? Stop smoking. Smoking can irritate the stomach and delay healing. As much as possible, stay away from secondhand smoke. If you smoke and have trouble stopping, ask your provider for help. ?? Follow-up care Follow up with your healthcare provider, or as advised. You may need testing to check for inflammation or an ulcer. ?? When to get medical advice Call your healthcare provider if any of the following occur: ??? Stomach pain that gets worse or moves to the lower right belly (appendix area) ??? Chest pain that suddenly appears or gets worse, or spreads to the back, neck, shoulder, or arm ??? Frequent vomiting (can???t keep down liquids) ??? Blood in the stool or vomit (red or black in color) ??? Feeling weak or dizzy ??? Shortness of breath ??? Unexplained weight loss ??? Fever of 100.4??F (38??C) or higher, or as directed by your healthcare provider ??? Symptoms that get worse, or new symptoms ?? Last Reviewed Date: 2022 ?? [id number] [employer]. All rights reserved. This information is not intended as a substitute for professional medical care. Always follow your healthcare professional's instructions. ?? Patient Care team information Care Team Personnel Name: Vivi Bailey NP Position: [facility] PCO Associate Professional Member Role: [employer] Consult[employer] Provider Address: Address: [address] [place] [address]- Name: Gauri Pascual Position: [facility] RN Member Role: Primary Care Nurse Name: Lorraine Zendejas MD Position: [facility] Physician - Primary Care Member Role: PCP Address: Address: [address] [place] [address]- Name: Magaly Collins Position: [facility] Associate Professional Member Role: ED Physician Anesthetist Address: Address: [address] [place] [address] [place] [address]- Name: Jorge Garcia DO Position: [facility] ED Medicine MD Member Role: Admitting Physician Address: Address: [address] [facility] [place] [address]- Name: Bonny Addison RN Position: S ED RN W/OE and Tasks Member Role: Patient Care Provider Care Team Related Persons Name: BEV PHELPSTOYALILIAN Address: home [address] [place] [address] Name: LENIN RELL Address: [address] [address] Name: RUSLAN ABREU Address: [address] Address: home [address] [place] [address] [place] Name: NAY DEL ANGEL Address: home [address] [place] [address] Name: PRAVIN PARKER Address: home [address] [place] [address] Name: ADITHYA HAYDEN Address: [address] Address: home [address] [address] Name: PRAVIN HAYDEN Address: home [address] [place] [address]
--- OUTSIDE RECORDS SUMMARY | 2023-11-16 17:20 | XMS_ITS | Continuity of Care Document ---
Author Organization [facility] Address [address] [place] [address]- Care Team Providers Care Crusher Foreman Name Role Phone Aashish IBARRA, Lorraine Primary Care Physician [facility]20 - 05/29/[address] [address]- [facility] Attending Physician: Not on Staff, Attending MD [...] 5 Refills, Maintenance, 11/03/19 12:31:00 EDT, Aerosol, [facility] #[id number], 157, cm, 07/31/19 8:49:00 EST, Height, 84.5, kg, 04/29/19 4:4... Start Date: 11/03/19 Status: Ordered ProAir HFA 90 mcg/inh inhalation aerosol with adapter 2, puffs, Inhalation, Every 4 hours, PRN, # 8.5 Gm, Refills 5, Tot. Refills 5, Maintenance, 11/03/19 12:31:00 EDT, Aerosol, Route to Pharmacy Electronically, [id number], [facility] #[id number], 157, cm, 07/31/19 8:49:00... Start Date: 11/03/19 [...] # 18 tablet, 1 Refills, Soft Stop, [facility] #[id number], 157, cm, 07/31/19 8:49:00 EST, Height, 84.5, kg, 04/29/19 4:40:00 EDT, D... Start Date: 10/07/19 Status: Ordered Xulane 150 mcg-35 mcg/24 hr transdermal film, extended release 1 patch, Topically, Every week, # 3 each, 11 Refills, Maintenance, 05/26/20 10:54:00 EDT, [facility] #[id number], 1 patch Topically Every week,x7 days, 157, [...]
--- OUTSIDE RECORDS SUMMARY | 2023-11-16 17:20 | XMS_ITS | Continuity of Care Document ---
Author Organization [facility] Address [address] [place] [address]- Care Team Providers Care Revenue Cycle Consultant Name Role Phone Aashish IBARRA, Lorraine Primary Care Physician [phone] [facility] Date[facility]s): 07/03/22 - 08/02/22 [facility] [address] [address]- Allergies, Adverse Reactions, Alerts Substance Reaction Severity [...] 0 Refills, Maintenance, 05/17/22 15:05:00 EDT, Capsule, [facility] #[id number], Partial fill upon patient request if the prescription is for a schedule II opioid . Start Date: 05/17/22 Status: Ordered Advair HFA 115 mcg / 21 mcg 2 puffs, Inhalation, 2 times a day, # 1 each, 5 Refills, Maintenance, 05/03/22 16:02:00 EDT, Aerosol, [facility] #[id number], Partial fill upon patient request if the prescription is for a schedule II opioid drug., 2 puffs Inhalation 2 times a da... Start Date: 05/03/22 Stop Date: 10/30/22 Status: Ordered albuterol CFC free 90 mcg/inh inhalation aerosol 2, puffs, Inhalation, Every 6 hours, PRN, # 8.5 Gm, Refills 11, Tot. Refills 11, Maintenance, 05/03/22 11:45:00 EDT, Aerosol, Route to Pharmacy Electronically, [id number], [facility] #[id number], dispense brand preferred... Start Date: 05/03/22 Stop Date: 04/28/23 Status: Ordered clotrimazole 1% topical cream 1 application, Topically, 2 times a day, # 12 Gm, 0 Refills, Maintenance, 04/11/22 4:42:00 EDT, Cream, [facility] #[id number], Partial fill upon patient request if the prescription is for a schedule II opioid drug., 1 application Topically 2 time... Start Date: 04/11/22 Status: Ordered Colace sodium 100 mg oral capsule 100 mg, 1, capsule, By Mouth, 2 times a day, PRN, # 20 capsule, Refills 0, Tot. Refills 0, Maintenance, for constipation, 03/18/22 15:18:00 EDT, Route to Pharmacy Electronically, [facility]#[id number], Partial fill upon patient request if the pr... Start Date: 03/18/22 Status: Ordered Dilaudid 2 mg oral tablet 1 tablet = 2 mg, By Mouth, Every 4 hours, # 10 tablet, 0 Refills, Maintenance, 03/18/22 18:17:00 EDT, Tablet, [facility] #[id number], Partial fill upon patient request if the prescription is fora schedule II opioid drug., 154, cm, 03/18/22 11:26... Start Date: 03/18/22 Status: Ordered ferrous sulfate 325 mg oral tablet 1 tablet = 325 mg, By Mouth, Daily, # 30 tablet, 3 Refills, Maintenance, 01/05/22 12:46:00 EDT, Tablet, [facility] #[id number], Partial fill upon patient request if the prescription is for a schedule II opioid drug., 154, cm, 01/04/22 13:56:00 ED... Start Date: 01/05/22 Status: Ordered ibuprofen 600 mg oral tablet 600 mg, 1, tablet, By Mouth, Every 6 hours, # 50 tablet, Refills 0, Tot. Refills 0, Maintenance, 03/18/22 15:18:00 EDT, Route to Pharmacy Electronically, [facility] #[id number], Partial fill upon patient request if the prescription is for a sched... Start Date: 03/18/22 Status: Ordered MiraLax oral powder for reconstitution = 17 Gm, By Mouth, Daily, dissolve in water before taking, # 527 Gm, 0 Refills, Maintenance, 08/16/21 13:56:00 EST, REC Powder, [facility] #[id number], Partial fill upon patient request if the prescription is for a schedule II opioid drug., 17 Gm... Start Date: 08/16/21 Status: Ordered Multivitamins with Folic Acid 1 mg oral tablet 1 tablet, By Mouth, Daily, # 90 tablet, 3 Refills, Maintenance, 05/03/22 12:05:00 EDT, Tablet, [facility] #[id number], Partial fill upon patient request if the prescription is for a schedule II opioid drug., 1 tablet By Mouth Daily,x90 days, 157,... Start Date: 05/03/22 Stop Date: 04/28/23 Status: Ordered simethicone 125 mg oral tablet, chewable 1 tablet = 125 mg, Chew, 4 times a day, # 48 tablet, 0 Refills, Maintenance, 03/18/22 15:18:00 EDT,Chew Tablet, [facility] #[id number], Partial fill upon patient request if the [...] 03/18/22 15:18:00 EDT, Cream, [facility] #[id number], Partial fill upon patient request if the [...] team information Care Team Personnel Name: Gauri Pasucal Position: [facility] RN Member Role: Primary Care Nurse Name: Lorraine Zendejas MD Position: [facility] Primary Care Physician Member Role: PCP Address: Address: [address] [place] [address]- Care Team Related Persons Name: RELL PHELPS Address: [address] [address] Name: RUSLAN ABREU Address: [address] Address: [place] [address] [address] [place] Name: NAY DEL ANGEL Address: [place] [address] [place] [address] Name: PRAVIN PARKER Address: home [address] [place] [id number] Name: ADITHYA HAYDEN Address: [address] Address: home [address] [address] [place] Name: PRAVIN HADYEN Address: home [address] [place] [address]
--- OUTSIDE RECORDS SUMMARY | 2023-11-16 17:20 | XMS_ITS | Continuity of Care Document ---
Author Organization [facility] Address [address] [place] [address]- Care Team Providers Care Throw Out Clerk Name Role Phone Aashish IBARRA, Lorraine Primary Care Physician [facility] Date[facility]s): 02/20/22 - 03/22/[address] [address]- Allergies, Adverse Reactions, Alerts Substance Reaction Severity [...] 0 Refills, Maintenance, 03/18/22 15:18:00 EDT, Capsule, [facility] #[id number], Partial fill upon patient request if the prescription is for a schedule II opioid . Start Date: 03/18/22 Status: Ordered Advair HFA 115 mcg / 21 mcg 2 puffs, Inhalation, 2 times a day, # 60 each, 5 Refills, Maintenance, 11/25/21 15:15:00 EDT, Aerosol, [facility] #[id number], Partial fill upon patient request if the prescription is for a schedule II opioid drug., 2 puffs Inhalation 2 times a d... Start Date: 11/25/21 Status: Ordered Aspirin Low Dose 81 mg oral delayed release tablet 2 tablet, By Mouth, Daily, START AT 12 WEEKS, 09/11/21, # 90 tablet, 3 Refills, [facility] #[id number], 154, cm, 01/04/22 13:56:00 EDT, Height, 86.5, kg, 10/29/21 21:50:00 EDT, Dry Weight Start Date: 01/05/22 Status: Ordered Colace sodium 100 mg oral capsule 100 mg, 1, capsule, By Mouth, 2 times a day, PRN, # 20 capsule, Refills 0, Tot. Refills 0, Maintenance, for constipation, 03/18/22 15:18:00 EDT, Route to Pharmacy Electronically, [facility]#[id number], Partial fill upon patient request if the pr... Start Date: 03/18/22 Status: Ordered Dilaudid 2 mg oral tablet 1 tablet = 2 mg, By Mouth, Every 4 hours, # 10 tablet, 0 Refills, Maintenance, 03/18/22 18:17:00 EDT, Tablet, [facility] #[id number], Partial fill upon patient request if the prescription is fora schedule II opioid drug., 154, cm, 03/18/22 11:26... Start Date: 03/18/22 Status: Ordered ferrous sulfate 325 mg oral tablet 1 tablet = 325 mg, By Mouth, Daily, # 30 tablet, 3 Refills, Maintenance, 01/05/22 12:46:00 EDT, Tablet, [facility] #[id number], Partial fill upon patient request if the prescription is for a schedule II opioid drug., 154, cm, 01/04/22 13:56:00 ED... Start Date: 01/05/22 Status: Ordered ibuprofen 600 mg oral tablet 600 mg, 1, tablet, By Mouth, Every 6 hours, # 50 tablet, Refills 0, Tot. Refills 0, Maintenance, 03/18/22 15:18:00 EDT, Route to Pharmacy Electronically, [facility] #[id number], Partial fill upon patient request if the prescription is for a sched... Start Date: 03/18/22 Status: Ordered magnesium oxide 400 mg oral tablet 1 tablet = 400 mg, By Mouth, Daily, for 30 days, to treat and prevent headaches, # 30 tablet, 3 Refills, Acute 06/22/22 19:25:00 EST, 02/22/22 19:25:00 EDT, Tablet, [facility] #[id number], Partial fill upon patient request if the prescription is... Start Date: 02/22/22 Stop Date: 06/22/22 Status: Ordered MiraLax oral powder for reconstitution = 17 Gm, By Mouth, Daily, dissolve in water before taking, # 527 Gm, 0 Refills, Maintenance, 08/16/21 13:56:00 EST, REC Powder, [facility] #[id number], Partial fill upon patient request if the prescription is for a schedule II opioid drug., 17 Gm... Start Date: 08/16/21 Status: Ordered Multivitamins with Folic Acid 1 mg oral tablet 1 tablet, By Mouth, Daily, # 90 tablet, 3 Refills, Maintenance, 09/16/21 15:48:00 EST, Tablet, [facility] #[id number], Partial fill upon patient request if the prescription is for a schedule II opioid drug., 1 tablet By Mouth Daily, 157, cm, 0... Start Date: 09/16/21 Status: Ordered ProAir HFA 90 mcg/inh inhalation aerosol with adapter 2, puffs, Inhalation, Every 4 hours, PRN, # 8.5 Gm, Refills 2, Tot. Refills 2, Maintenance, 11/25/21 15:15:00 EDT, Aerosol, Route to Pharmacy Electronically, [id number], [facility] #[id number], 154, cm, 11/25/21 14:53:00... Start Date: 11/25/21 Status: Ordered simethicone 125 mg oral tablet, chewable 1 tablet = 125 mg, Chew, 4 times a day, # 48 tablet, 0 Refills, Maintenance, 03/18/22 15:18:00 EDT,Chew Tablet, [facility] #[id number], Partial fill upon patient request if the [...] 0 Refills, Maintenance, 03/18/22 15:18:00 EDT, Cream, [facility] #[id number], Partial fill upon patient request if the [...]
--- OUTSIDE RECORDS SUMMARY | 2023-11-16 17:21 | XMS_ITS | Continuity of Care Document ---
Author Organization [facility] Address [address] [facility], [address] Floor, [address] [place] [address]- Care Team Providers Care Label Printer Name Role Phone Aashish IBARRA, Lorraine Primary Care Physician [phone] [facility]counter [facility] Date[facility]s): 06/08/23 - 07/08/23 [facility] [address], [address], [address] [place] [id number] Allergies, Adverse Reactions, Alerts Substance Reaction [...] 08/15/22 15:08:00 EST, Route to Pharmacy Electronically, [facility] #[id number], Partial fill upon patient request if the prescription... Start Date: 08/15/22 Status: Ordered Advair HFA 115 mcg / 21 mcg 2 puffs, Inhalation, 2 times a day, # 1 each, 5 Refills, Maintenance, 05/03/22 16:02:00 EDT, Aerosol, [facility] #[id number], Partial fill upon patient request if the prescription is for a schedule II opioid drug., 2 puffs Inhalation 2 times a da... Start Date: 05/03/22 Stop Date: 10/30/22 Status: Ordered albuterol 0.083% inhalation solution 3 mL = 2.5 mg, Inhalation, Every 6 hours, PRN Wheezing/Shortness of Breath, # 60 each, 1 Refills, Maintenance, 11/09/22 13:41:00 EDT, Solution, [facility] #[id number], Partial fill upon patient request if the prescription is for a schedule II opi... Start Date: 11/09/22 Status: Ordered albuterol 0.083% inhalation solution 3 mL = 2.5 mg, Inhalation, Every 6 hours, PRN for wheezing, # 25 each, 0 Refills, Maintenance, 05/29/23 20:07:00 EDT, Solution, [facility] #[id number], Partial fill upon patient request if the prescription is for a schedule II opioid drug., 156,... Start Date: 05/29/23 Status: Ordered cetirizine 5 mg oral tablet = 5 mg, By Mouth, Daily, # 30 tablet, 0 Refills, Maintenance, 11/17/22 10:48:00 EDT, Tablet, [facility] #[id number], Partial fill upon patient request if the prescription is for a schedule II opioid drug., 156, cm, 11/17/22 8:44:00 EDT, Height, 8... Start Date: 11/17/22 Status: Ordered Depakote 250 mg oral enteric coated tablet 1 tablet = 250 mg, By Mouth, 2 times a day, # 60 tablet, 3 Refills, Maintenance, 02/28/23 16:39:00 EDT, [facility] #[id number], Partial fill upon patient request if the prescription is for a schedule II opioid drug., 155, cm, 02/28/23 11:38:00 ED... Start Date: 02/28/23 Status: Ordered dicyclomine 20 mg oral tablet 1 tablet = 20 mg, By Mouth, 4 times a day, 30 to 60 minutes before meals, # 28 tablet, 4 Refills, Maintenance, 04/05/23 11:18:00 EDT, Tablet, [facility] #[id number], Partial fill upon patient request if the prescription is for a schedule II opioi... Start Date: 04/05/23 Stop Date: 05/10/23 Status: Ordered ibuprofen 400 mg oral tablet 400 mg, 1, tablet, By Mouth, Every 4 hours, PRN, # 60 tablet, Refills 0, Tot. Refills 0, Maintenance, for pain, 11/17/22 10:49:00 EDT, Route to Pharmacy Electronically, [facility] #[id number], Partial fill upon patient request if the prescription... Start Date: 11/17/22 Status: Ordered lidocaine 1.8% topical film 1 patch, Topically, Daily, leave on up to 12 hours, # 30 each, 0 Refills, Maintenance, 11/17/22 10:47:00 EDT, Film, [facility] #[id number], Partial fill upon patient request if the prescription is for a schedule II opioid drug., 1 patch Topically... Start Date: 11/17/22 Status: Ordered metroNIDAZOLE 0.75% topical gel 1 application, Topically, Daily at bedtime, use vaginal applicator to insert vaginally nightly for 5 nights, # 45 Gm, 0 Refills, Maintenance, 02/14/23 16:28:00 EDT, Gel, [facility] #[id number], Partial fill upon patient request if the prescriptio... Start Date: 02/14/23 Stop Date: 02/19/23 Status: Ordered metroNIDAZOLE 500 mg oral tablet 1 tablet = 500 mg, By Mouth, Every 12 hours, # 28 tablet, 0 Refills, Maintenance, 01/25/23 16:14:00EDT, Tablet, [facility] #[id number], Partial fill upon patient request if the prescription is for a schedule II opioid drug., 156, cm, 01/25/23 15... Start Date: 01/25/23 Stop Date: 02/08/23 Status: Ordered MiraLax oral powder for reconstitution = 17 Gm, By Mouth, Daily, dissolve in water before taking, # 527 Gm, 0 Refills, Maintenance, 11/17/22 10:47:00 EDT, REC Powder, [facility] #[id number], Partial fill upon patient request if the prescription is for a schedule II opioid drug., 17 Gm... Start Date: 11/17/22 Status: Ordered morphine 15 mg oral tablet, immediate release 1 tablet = 15 mg, By Mouth, Every 4 hours, PRN as needed for pain, # 10 tablet, 0 Refills, Maintenance, 04/03/23 19:18:00 EDT, [facility][id number], Partial fill upon patient request if the prescription is for a schedule II opioid drug.... Start Date: 04/03/23 Status: Ordered ondansetron 4 mg oral tablet, disintegrating 1 tablet = 4 mg, By Mouth, Every 8 hours, PRN as needed for nausea/vomiting, # 10 tablet, 0 Refills, Maintenance, 04/03/23 19:22:00 EDT, DIS Tablet, [facility] #[id number], Partial fill upon patient request if the prescription is for a schedule I... Start Date: 04/03/23 Status: Ordered predniSONE 20 mg oral tablet 1 tablet = 20 mg, By Mouth, 2 times a day, # 10 tablet, 0 Refills, Soft Stop, 05/29/23 20:12:00 EDT, [facility][id number], Partial fill upon patient request if the [...] 3 Refills, Soft Stop, 01/25/23 10:30:00 EDT, [facility]... Start Date: 01/25/23 Status: [...] Name: Vivi Bailey NP Position: [facility] PCO Associate Professional Member Role: Lifetime Consulting Provider Address: Address: [address] [place] [address]- Name: Gauri Pascual Position: [facility] RN Member Role: Primary Care Nurse Name: Lorraine Zendejas MD Position: [facility] Physician - Primary Care Member Role: PCP Address: Address: [address] [place] [address]- Care Team Related Persons Name: KENDAL PHELPS Address: home [address] [place] [address] Name: RELL PHELPS Address: [address] [address] Name: RUSLAN ABREU Address: [address] Address: home [address] [place] [address] [place] Name: NAY DEL ANGEL Address: home [address] [place] [address] Name: PRAVIN PARKER Address: home [address] [place] [address] Name: ADITHYA HAYDEN Address: [address] Address: home [address] [place] [address] [place] Name: PRAVIN HAYDEN Address: home [address] [place] [address]
--- OUTSIDE RECORDS SUMMARY | 2023-11-16 17:21 | XMS_ITS | Continuity of Care Document ---
Author Organization [facility] Address [address] [place] [address]- Care Team Providers Care Nail Specialist Name Role Phone Aashish IBARRA, Lorraine Primary Care Physician [phone] [facility] 10/26/[facility] - 11/25/[address] [address]- Allergies, Adverse Reactions, Alerts Substance Reaction Severity [...] 08/15/22 15:08:00 EST, Route to Pharmacy Electronically, [facility] #[id number], Partial fill upon patient request if the prescription... Start Date: 08/15/22 Status: Ordered Advair HFA 115 mcg / 21 mcg 2 puffs, Inhalation, 2 times a day, # 1 each, 5 Refills, Maintenance, 05/03/22 16:02:00 EDT, Aerosol, [facility] #[id number], Partial fill upon patient request if the prescription is for a schedule II opioid drug., 2 puffs Inhalation 2 times a da... Start Date: 05/03/22 Stop Date: 10/30/22 Status: Ordered albuterol 0.083% inhalation solution 3 mL = 2.5 mg, Inhalation, Every 6 hours, PRN Wheezing/Shortness of Breath, # 60 each, 1 Refills, Maintenance, 11/09/22 13:41:00 EDT, Solution, [facility] #[id number], Partial fill upon patient request if the prescription is for a schedule II opi... Start Date: 11/09/22 Status: Ordered albuterol CFC free 90 mcg/inh inhalation aerosol 2, puffs, Inhalation, Every 6 hours, PRN, for 30 days, # 8.5 Gm, Refills 11, Tot. Refills 11, Hard Stop 04/28/23 11:45:00 EDT, 05/03/22 11:45:00 EDT, Aerosol, Route to Pharmacy Electronically, [id number], [facility]... Start Date: 05/03/22 Stop Date: 04/28/23 Status: Ordered benzonatate 100 mg oral capsule 1 capsule = 100 mg, By Mouth, 3 times a day, PRN as needed for cough, for 14 days, # 42 capsule, 0 Refills, Acute 11/28/22 16:18:00 EDT, 11/14/22 16:18:00 EDT, Capsule, [facility] #[id number], Partial fill upon patient request if the prescription... Start Date: 11/14/22 Stop Date: 11/28/22 Status: Ordered cetirizine 5 mg oral tablet = 5 mg, By Mouth, Daily, # 30 tablet, 0 Refills, Maintenance, 11/17/22 10:48:00 EDT, Tablet, [facility] #[id number], Partial fill upon patient request if the prescription is for a schedule II opioid drug., 156, cm, 11/17/22 8:44:00 EDT, Height, 8... Start Date: 11/17/22 Status: Ordered ibuprofen 400 mg oral tablet 400 mg, 1, tablet, By Mouth, Every 4 hours, PRN, # 60 tablet, Refills 0, Tot. Refills 0, Maintenance, for pain, 11/17/22 10:49:00 EDT, Route to Pharmacy Electronically, [facility] #[id number], Partial fill upon patient request if the prescription... Start Date: 11/17/22 Status: Ordered lidocaine 1.8% topical film 1 patch, Topically, Daily, leave on up to 12 hours, # 30 each, 0 Refills, Maintenance, 11/17/22 10:47:00 EDT, Film, [facility] #[id number], Partial fill upon patient request if the prescription is for a schedule II opioid drug., 1 patch Topically... Start Date: 11/17/22 Status: Ordered MiraLax oral powder for reconstitution = 17 Gm, By Mouth, Daily, dissolve in water before taking, # 527 Gm, 0 Refills, Maintenance, 11/17/22 10:47:00 EDT, REC Powder, [facility] #[id number], Partial fill upon patient request if the [...] 2 Refills, Maintenance, 11/07/22 17:30:00 EDT, Tablet, [facility] #[id number], Partial fill upon patient request [...] Care Team Personnel Name: Gauri Pascual Position: [facility] RN Member Role: Primary Care Nurse Name: Lorraine Zendejas MD Position: [facility] Primary Care Physician Member Role: PCP Address: Address: [address] [place] [address]- Care Team Related Persons Name: LENINRELL Address: home [address] [address] Name: RUSLAN ABREU Address: [address] Address: [address] [address] [place] Name: NAY DEL ANGEL Address: [address] [address] Name: PRAVIN PARKER Address: home [address] [place] [address] Name: ADITHYA HAYDEN Address: [address] Address: [address] [address] [place] Name: PRAVIN HAYDEN Address: home [address] [place] [address]
--- OUTSIDE RECORDS SUMMARY | 2023-11-16 17:21 | XMS_ITS | Continuity of Care Document ---
Author Organization [facility] Address [address] [place] [address]- Care Team Providers Care Hide Curer Name Role Phone Aashish IBARRA, Lorraine Primary Care Physician [phone] Encounter [facility] Date(s): 11/02/21 - 12/02/[address] [id number] Allergies, Adverse Reactions, Alerts Substance [...] 5 Refills, Maintenance, 11/25/21 15:15:00 EDT, Aerosol, [facility] #[id number], Partial fill upon patient request if the prescription is for a schedule II opioid drug., 2 puffs Inhalation 2 times a d... Start Date: 11/25/21 Status: Ordered aspirin 81 mg oral delayed release tablet 2 tablet = 162 mg, By Mouth, Daily, start at 12 weeks, 09/11/21, # 90 tablet, 0 Refills, Maintenance,08/16/21 13:37:00 EST, CR Tablet, [facility] #[id number], Partial fill upon patient request ifthe prescription is for a schedule II opioid drug.,... Start Date: 08/16/21 Status: Ordered Benadryl 25 mg oral capsule 2 capsule = 50 mg, By Mouth, Daily at bedtime, PRN Pain , Moderate, # 100 capsule, 0 Refills, Maintenance, 11/08/21 15:02:00 EDT, Capsule, [facility] #[id number], Partial fill upon patient request if the prescription is for a schedule II opioid d... Start Date: 11/08/21 Status: Ordered clotrimazole 1% vaginal cream with applicator 1 application, Vaginally, Daily at bedtime, Apply vaginally each night for 1 week., # 45 Gm, 0 Refills, Maintenance, 10/12/21 14:02:00 EST, Cream, [facility] #[id number], Partial fill upon patient request if the prescription is for a schedule II... Start Date: 10/12/21 Status: Ordered Lidoderm 5% film 1 patch, Topically, Daily, (remove patch(s) after 12 hours), # 30 patch, 5 Refills, Maintenance, 11/25/21 15:09:00 EDT, [facility] #[id number], Partial fill upon patient request if the prescription is for a schedule II opioid drug., 1 patch Topic... Start Date: 11/25/21 Status: Ordered MiraLax oral powder for reconstitution = 17 Gm, By Mouth, Daily, dissolve in water before taking, # 527 Gm, 0 Refills, Maintenance, 08/16/21 13:56:00 EST, REC Powder, [facility] #[id number], Partial fill upon patient request if the prescription is for a schedule II opioid drug., 17 Gm... Start Date: 08/16/21 Status: Ordered Multivitamins with Folic Acid 1 mg oral tablet 1 tablet, By Mouth, Daily, # 90 tablet, 3 Refills, Maintenance, 09/16/21 15:48:00 EST, Tablet, [facility] #[id number], Partial fill upon patient request if the prescription is for a schedule II opioid drug., 1 tablet By Mouth Daily, 157, cm, 020... Start Date: 09/16/21 Status: Ordered Multivitamins with Vitamin B Complex, Vitamin C, Minerals and L- Methylfolate oral capsule 1 capsule, By Mouth, Daily, # 30 capsule, 11 Refills, Maintenance, 08/05/21 17:50:00 EST, Capsule, [facility] #[id number], Partial fill upon patient request if the prescription is for a scheduleII opioid drug., 1 capsule By Mouth Daily, 157, cm,... Start Date: 08/05/21 Status: Ordered ProAir HFA 90 mcg/inh inhalation aerosol with adapter 2, puffs, Inhalation, Every 4 hours, PRN, # 8.5 Gm, Refills 2, Tot. Refills 2, Maintenance, 11/25/21 15:15:00 EDT, Aerosol, Route to Pharmacy Electronically, [id number], [facility] #[id number], 154, cm, 11/25/21 14:53:00... Start Date: 11/25/21 Status: Ordered Reglan 5 mg oral tablet 2 tablet = 10 mg, By Mouth, Once, # 28 tablet, 0 Refills, Soft Stop, 11/08/21 15:03:00 EDT, Tablet,[facility] #[id number], Partial fill upon patient request if the [...] Replace Required Details, Route to Pharmacy Electronically, [facility]... Start Date: 11/25/21 Status: Ordered Problem List [...]
--- OUTSIDE RECORDS SUMMARY | 2023-11-16 17:21 | XMS_ITS | Continuity of Care Document ---
Author Organization [facility] Address [address] [place] [address]- Care Team Providers Care Subgrade Tester Name Role Phone Lorraine Zendejas MD Primary Care Physician Encounter [facility] Date(s): 04/01/21 - 05/01/[address] [address]- Attending Physician: Roque Villela Admitting Physician: AdmtrRoque [...] 5 Refills, Maintenance, 11/16/20 15:34:00 EDT, Aerosol, [facility] #[id number], Partial fill upon patient request if the prescription is for a schedule II opioid drug., 2 puffs Inhalation 2 times a d... Start Date: 11/16/20 Status: Ordered cyclobenzaprine 10 mg oral tablet 1, tablet, By Mouth, 3 times a day, PRN, # 45 tablet, Refills 0, Tot. Refills 0, Acute, NEEDED FOR SPASM, 08/25/20 9:53:00 EST, Route to Pharmacy Electronically, [facility] #[id number], 157, cm, 06/08/20 15:12:00 EST, Height, 84.5, kg, ... Start Date: 08/25/20 Status: Ordered Lidoderm 5% film 1 patch, Topically, Daily, (remove patch(s) after 12 hours), # 30 patch, 0 Refills, Maintenance, 10/12/20 11:07:00 EST, [facility] #[id number], Partial fill upon patient request if the prescription is for a schedule II opioid drug., 1 patch Topic... Start Date: 10/12/20 Status: Ordered ProAir HFA 90 mcg/inh inhalation aerosol with adapter 2, puffs, Inhalation, Every 4 hours, PRN, # 8.5 Gm, Refills 5, Tot. Refills 5, Maintenance, 01/06/21 8:08:00 EDT, Aerosol, Route to Pharmacy Electronically, [id number], [facility] #[id number], 157, cm, 11/17/20 9:48:00 E... Start Date: [...] tablet, 0 Refills, Maintenance, 12/13/20 14:28:00 EDT, [facility] #[id number], 157, cm, 11/17/20 9:48:00 EDT, Height, 84.5, kg... Start Date: 12/13/20 Status: Ordered Xulane 150 mcg-35 mcg/24 hr transdermal film, extended release 1 patch, Topically, Every week, # 3 each, 11 Refills, Maintenance, 03/29/21 11:42:00 EDT, [facility] #[id number], 1 patch Topically Every week,x7 days, 157, [...]
--- OUTSIDE RECORDS SUMMARY | 2023-11-16 17:21 | XMS_ITS | Continuity of Care Document ---
Author Organization [facility] Address [address] [facility], 3r d Floor, [address] [place] [address]- Care Team Providers Care Top Precipitator Operator Helper Name Role Phone Aashish IBARRA, Lorraine Primary Care Physician Encounter [facility] Date(s): 01/25/23 - 04/12/23 [facility] [address], [address], [address] [place] [id number] Attending Physician: Jan Luciano MD Admitting Physician: [...] 08/15/22 15:08:00 EST, Route to Pharmacy Electronically, [facility] #[id number], Partial fill upon patient request if the prescription... Start Date: 08/15/22 Status: Ordered Advair HFA 115 mcg / 21 mcg 2 puffs, Inhalation, 2 times a day, # 1 each, 5 Refills, Maintenance, 05/03/22 16:02:00 EDT, Aerosol, [facility] #[id number], Partial fill upon patient request if the prescription is for a schedule II opioid drug., 2 puffs Inhalation 2 times a da... Start Date: 05/03/22 Stop Date: 10/30/22 Status: Ordered albuterol 0.083% inhalation solution 3 mL = 2.5 mg, Inhalation, Every 6 hours, PRN Wheezing/Shortness of Breath, # 60 each, 1 Refills, Maintenance, 11/09/22 13:41:00 EDT, Solution, [facility] #[id number], Partial fill upon patient request if the prescription is for a schedule II opi... Start Date: 11/09/22 Status: Ordered albuterol CFC free 90 mcg/inh inhalation aerosol 2, puffs, Inhalation, Every 6 hours, PRN, for 30 days, # 8.5 Gm, Refills 11, Tot. Refills 11, Hard Stop 04/28/23 11:45:00 EDT, 05/03/22 11:45:00 EDT, Aerosol, Route to Pharmacy Electronically, [id number], [facility]... Start Date: 05/03/22 Stop Date: 04/28/23 Status: Ordered cetirizine 5 mg oral tablet = 5 mg, By Mouth, Daily, # 30 tablet, 0 Refills, Maintenance, 11/17/22 10:48:00 EDT, Tablet, [facility] #[id number], Partial fill upon patient request if the prescription is for a schedule II opioid drug., 156, cm, 11/17/22 8:44:00 EDT, Height, 8... Start Date: 11/17/22 Status: Ordered Depakote 250 mg oral enteric coated tablet 1 tablet = 250 mg, By Mouth, 2 times a day, # 60 tablet, 3 Refills, Maintenance, 02/28/23 16:39:00 EDT, [facility] #[id number], Partial fill upon patient request if the prescription is for a schedule II opioid drug., 155, cm, 02/28/23 11:38:00 ED... Start Date: 02/28/23 Status: Ordered dicyclomine 20 mg oral tablet 1 tablet = 20 mg, By Mouth, 4 times a day, 30 to 60 minutes before meals, # 28 tablet, 4 Refills, Maintenance, 04/05/23 11:18:00 EDT, Tablet, [facility] #[id number], Partial fill upon patient request if the prescription is for a schedule II opioi... Start Date: 04/05/23 Stop Date: 05/10/23 Status: Ordered ibuprofen 400 mg oral tablet 400 mg, 1, tablet, By Mouth, Every 4 hours, PRN, # 60 tablet, Refills 0, Tot. Refills 0, Maintenance, for pain, 11/17/22 10:49:00 EDT, Route to Pharmacy Electronically, [facility] #[id number], Partial fill upon patient request if the prescription... Start Date: 11/17/22 Status: Ordered lidocaine 1.8% topical film 1 patch, Topically, Daily, leave on up to 12 hours, # 30 each, 0 Refills, Maintenance, 11/17/22 10:47:00 EDT, Film, [facility] #[id number], Partial fill upon patient request if the prescription is for a schedule II opioid drug., 1 patch Topically... Start Date: 11/17/22 Status: Ordered metroNIDAZOLE 0.75% topical gel 1 application, Topically, Daily at bedtime, use vaginal applicator to insert vaginally nightly for 5 nights, # 45 Gm, 0 Refills, Maintenance, 02/14/23 16:28:00 EDT, Gel, [facility] #[id number], Partial fill upon patient request if the prescriptio... Start Date: 02/14/23 Stop Date: 02/19/23 Status: Ordered metroNIDAZOLE 500 mg oral tablet 1 tablet = 500 mg, By Mouth, Every 12 hours, # 28 tablet, 0 Refills, Maintenance, 01/25/23 16:14:00EDT, Tablet, [facility] #[id number], Partial fill upon patient request if the prescription is for a schedule II opioid drug., 156, cm, 01/25/23 15... Start Date: 01/25/23 Stop Date: 02/08/23 Status: Ordered MiraLax oral powder for reconstitution = 17 Gm, By Mouth, Daily, dissolve in water before taking, # 527 Gm, 0 Refills, Maintenance, 11/17/22 10:47:00 EDT, REC Powder, [facility] #[id number], Partial fill upon patient request if the prescription is for a schedule II opioid drug., 17 Gm... Start Date: 11/17/22 Status: Ordered morphine 15 mg oral tablet, immediate release 1 tablet = 15 mg, By Mouth, Every 4 hours, PRN as needed for pain, # 10 tablet, 0 Refills, Maintenance, 04/03/23 19:18:00 EDT, Tablet, [facility] #[id number], Partial fill upon patient request if the prescription is for a schedule II opioid drug.... Start Date: 04/03/23 Status: Ordered ondansetron 4 mg oral tablet, disintegrating 1 tablet = 4 mg, By Mouth, Every 8 hours, PRN as needed for nausea/vomiting, # 10 tablet, 0 Refills, Maintenance, 04/03/23 19:22:00 EDT, DIS Tablet, [facility] #[id number], Partial fill upon patient request if the [...] 3 Refills, Soft Stop, 01/25/23 10:30:00 EDT, [facility] #0... Start Date: 01/25/23 Status: Ordered [...] Team Personnel Name: Vivi Bailey NP Position: [facility]O Associate Professional Member Role: Lifetime Consulting Provider Address: Address: [address] [place] [address]- Name: Gauri Pascual Position: [facility] RN Member Role: Primary Care Nurse Name: Lorraine Zendejas MD Position: [facility] Physician - Primary Care Member Role: PCP Address: Address: [address] [place] [address]- Care Team Related Persons Name: KENDAL PHELPS Address: home [address] [place] [address] Name: RELL PHELPS Address: [address] [address] Name: RUSLAN ABREU Address: [address] Address: home [address] [place] [address] [place] Name: NAY DEL ANGEL Address: home [address] [place] [address] Name: PRAVIN PARKER Address: home [address] [place] [address] Name: ADITHYA HAYDEN Address: [id number] Address: [address] [address] [place] Name: PRAVIN HAYDEN Address: home [address] [place] [address]
--- OUTSIDE RECORDS SUMMARY | 2023-11-16 17:21 | XMS_ITS | Continuity of Care Document ---
Author Organization [facility] Address [address] [place] [address]- Care Team Providers Care Molecular Geneticist Name Role Phone Lorraine Zendejas MD Primary Care Physician Encounter [facility] Date(s): 08/09/22 - 11/29/[address] [address]- Attending Physician: Lorraine Zendejas MD Admitting Physician: Lorraine Zendejas MD Referring Physician: Lorraine Zendejas MD Allergies, [...] 08/15/22 15:08:00 EST, Route to Pharmacy Electronically, [facility] #[id number], Partial fill upon patient request if the prescription... Start Date: 08/15/22 Status: Ordered Advair HFA 115 mcg / 21 mcg 2 puffs, Inhalation, 2 times a day, # 1 each, 5 Refills, Maintenance, 05/03/22 16:02:00 EDT, Aerosol, [facility] #[id number], Partial fill upon patient request if the prescription is for a schedule II opioid drug., 2 puffs Inhalation 2 times a da... Start Date: 05/03/22 Stop Date: 10/30/22 Status: Ordered albuterol 0.083% inhalation solution 3 mL = 2.5 mg, Inhalation, Every 6 hours, PRN Wheezing/Shortness of Breath, # 60 each, 1 Refills, Maintenance, 11/09/22 13:41:00 EDT, Solution, [facility] #[id number], Partial fill upon patient request if the prescription is for a schedule II opi... Start Date: 11/09/22 Status: Ordered albuterol CFC free 90 mcg/inh inhalation aerosol 2, puffs, Inhalation, Every 6 hours, PRN, for 30 days, # 8.5 Gm, Refills 11, Tot. Refills 11, Hard Stop 04/28/23 11:45:00 EDT, 05/03/22 11:45:00 EDT, Aerosol, Route to Pharmacy Electronically, [id number], [facility]... Start Date: 05/03/22 Stop Date: 04/28/23 Status: Ordered cetirizine 5 mg oral tablet = 5 mg, By Mouth, Daily, # 30 tablet, 0 Refills, Maintenance, 11/17/22 10:48:00 EDT, Tablet, [facility] #[id number], Partial fill upon patient request if the prescription is for a schedule II opioid drug., 156, cm, 11/17/22 8:44:00 EDT, Height, 8... Start Date: 11/17/22 Status: Ordered ibuprofen 400 mg oral tablet 400 mg, 1, tablet, By Mouth, Every 4 hours, PRN, # 60 tablet, Refills 0, Tot. Refills 0, Maintenance, for pain, 11/17/22 10:49:00 EDT, Route to Pharmacy Electronically, [facility] #[id number], Partial fill upon patient request if the prescription... Start Date: 11/17/22 Status: Ordered lidocaine 1.8% topical film 1 patch, Topically, Daily, leave on up to 12 hours, # 30 each, 0 Refills, Maintenance, 11/17/22 10:47:00 EDT, Film, [facility] #[id number], Partial fill upon patient request if the prescription is for a schedule II opioid drug., 1 patch Topically... Start Date: 11/17/22 Status: Ordered MiraLax oral powder for reconstitution = 17 Gm, By Mouth, Daily, dissolve in water before taking, # 527 Gm, 0 Refills, Maintenance, 11/17/22 10:47:00 EDT, REC Powder, [facility] #[id number], Partial fill upon patient request if the [...] 2 Refills, Maintenance, 11/07/22 17:30:00 EDT, Tablet, [facility] #[id number], Partial fill upon patient request if the [...] Care Team Personnel Name: Gauri Pascual Position: [facility] RN Member Role: Primary Care Nurse Name: Lorraine Zendejas MD Position: [facility] Primary Care Physician Member Role: PCP Address: Address: [address] [place] [address]- Care Team Related Persons Name: RELL PHELPS Address: [address] [address] Name: RUSLAN ABREU Address: [address] Address: [address] [address] Name: NAY DEL ANGEL Address: home [address] [place] [address] Name: PRAVIN PARKER Address: [address] [place] [address] Name: ADITHYA HAYDEN Address: [id number] Address: [address] [address] [place] Name: PRAVIN HAYDEN Address: [address] [place] [address]
--- OUTSIDE RECORDS SUMMARY | 2023-11-16 17:21 | XMS_ITS | Continuity of Care Document ---
Author Organization [facility] Address Unknown Care Team Providers Care Infrastructure Solutions Architect Name Role Phone Lorraine Zendejas MD Primary Care Physician Encounter [facility] Date(s): 05/17/21 - 06/16/21 [facility] Allergies, Adverse Reactions, Alerts Substance Reaction Severity [...] 5 Refills, Maintenance, 11/16/20 15:34:00 EDT, Aerosol, [facility] #[id number], Partial fill upon patient request if the prescription is for a schedule II opioid drug., 2 puffs Inhalation 2 times a d... Start Date: 11/16/20 Status: Ordered Cipro 500 mg oral tablet 1 tablet = 500 mg, By Mouth, Every 12 hours, for 5 days, # 10 tablet, 0 Refills, Acute 06/20/21 12:11:00 EST, 06/15/21 12:11:00 EST, Tablet, [facility] #[id number], Partial fill upon patient request if the prescription is for a schedule II opioid... Start Date: 06/15/21 Stop Date: 06/20/21 Status: Ordered cyclobenzaprine 10 mg oral tablet 1, tablet, By Mouth, 3 times a day, PRN, # 45 tablet, Refills 0, Tot. Refills 0, Acute, NEEDED FOR SPASM, 08/25/20 9:53:00 EST, Route to Pharmacy Electronically, [facility] #[id number], 157, cm, 06/08/20 15:12:00 EST, Height, 84.5, kg, ... Start Date: 08/25/20 Status: Ordered Lidoderm 5% film 1 patch, Topically, Daily, (remove patch(s) after 12 hours), # 30 patch, 0 Refills, Maintenance, 10/12/20 11:07:00 EST, [facility] #[id number], Partial fill upon patient request if the prescription is for a schedule II opioid drug., 1 patch Topic... Start Date: 10/12/20 Status: Ordered ProAir HFA 90 mcg/inh inhalation aerosol with adapter 2, puffs, Inhalation, Every 4 hours, PRN, # 8.5 Gm, Refills 5, Tot. Refills 5, Maintenance, 01/06/21 8:08:00 EDT, Aerosol, Route to Pharmacy Electronically, [id number], [facility] #[id number], 157, cm, 11/17/20 9:48:00 E... Start Date: [...] tablet, 0 Refills, Maintenance, 12/13/20 14:28:00 EDT, [facility] #[id number], 157, cm, 11/17/20 9:48:00 EDT, Height, 84.5, kg... Start Date: 12/13/20 Status: Ordered Xulane 150 mcg-35 mcg/24 hr transdermal film, extended release 1 patch, Topically, Every week, # 3 each, 11 Refills, Maintenance, 03/29/21 11:42:00 EDT, [facility] #[id number], 1 patch Topically Every week,x7 days, 157, [...]
--- OUTSIDE RECORDS SUMMARY | 2023-11-16 17:21 | XMS_ITS | Continuity of Care Document ---
Author Organization [facility] Address [address] [facility], 3r d Floor, [address] [place] [address]- Care Team Providers Care Interventionist Name Role Phone Aashish IBARRA, Lorraine Primary Care Physician [phone] [facility]counter [facility] Date(s): 02/27/23 - 05/12/23 [facility] [address], [address], [address] [place] [address] Attending Physician: Jan Luciano MD Admitting Physician: [...] 08/15/22 15:08:00 EST, Route to Pharmacy Electronically, [facility] #[id number], Partial fill upon patient request if the prescription... Start Date: 08/15/22 Status: Ordered Advair HFA 115 mcg / 21 mcg 2 puffs, Inhalation, 2 times a day, # 1 each, 5 Refills, Maintenance, 05/03/22 16:02:00 EDT, Aerosol, [facility] #[id number], Partial fill upon patient request if the prescription is for a schedule II opioid drug., 2 puffs Inhalation 2 times a da... Start Date: 05/03/22 Stop Date: 10/30/22 Status: Ordered albuterol 0.083% inhalation solution 3 mL = 2.5 mg, Inhalation, Every 6 hours, PRN Wheezing/Shortness of Breath, # 60 each, 1 Refills, Maintenance, 11/09/22 13:41:00 EDT, Solution, [facility] #[id number], Partial fill upon patient request if the prescription is for a schedule II opi... Start Date: 11/09/22 Status: Ordered cetirizine 5 mg oral tablet = 5 mg, By Mouth, Daily, # 30 tablet, 0 Refills, Maintenance, 11/17/22 10:48:00 EDT, Tablet, [facility] #[id number], Partial fill upon patient request if the prescription is for a schedule II opioid drug., 156, cm, 11/17/22 8:44:00 EDT, Height, 8... Start Date: 11/17/22 Status: Ordered Depakote 250 mg oral enteric coated tablet 1 tablet = 250 mg, By Mouth, 2 times a day, # 60 tablet, 3 Refills, Maintenance, 02/28/23 16:39:00 EDT, [facility] #[id number], Partial fill upon patient request if the prescription is for a schedule II opioid drug., 155, cm, 02/28/23 11:38:00 ED... Start Date: 02/28/23 Status: Ordered dicyclomine 20 mg oral tablet 1 tablet = 20 mg, By Mouth, 4 times a day, 30 to 60 minutes before meals, # 28 tablet, 4 Refills, Maintenance, 04/05/23 11:18:00 EDT, Tablet, [facility] #[id number], Partial fill upon patient request if the prescription is for a schedule II opioi... Start Date: 04/05/23 Stop Date: 05/10/23 Status: Ordered ibuprofen 400 mg oral tablet 400 mg, 1, tablet, By Mouth, Every 4 hours, PRN, # 60 tablet, Refills 0, Tot. Refills 0, Maintenance, for pain, 11/17/22 10:49:00 EDT, Route to Pharmacy Electronically, [facility] #[id number], Partial fill upon patient request if the prescription... Start Date: 11/17/22 Status: Ordered lidocaine 1.8% topical film 1 patch, Topically, Daily, leave on up to 12 hours, # 30 each, 0 Refills, Maintenance, 11/17/22 10:47:00 EDT, Film, [facility] #[id number], Partial fill upon patient request if the prescription is for a schedule II opioid drug., 1 patch Topically... Start Date: 11/17/22 Status: Ordered metroNIDAZOLE 0.75% topical gel 1 application, Topically, Daily at bedtime, use vaginal applicator to insert vaginally nightly for 5 nights, # 45 Gm, 0 Refills, Maintenance, 02/14/23 16:28:00 EDT, Gel, [facility] #[id number], Partial fill upon patient request if the prescriptio... Start Date: 02/14/23 Stop Date: 02/19/23 Status: Ordered metroNIDAZOLE 500 mg oral tablet 1 tablet = 500 mg, By Mouth, Every 12 hours, # 28 tablet, 0 Refills, Maintenance, 01/25/23 16:14:00EDT, Tablet, [facility] #[id number], Partial fill upon patient request if the prescription is for a schedule II opioid drug., 156, cm, 01/25/23 15... Start Date: 01/25/23 Stop Date: 02/08/23 Status: Ordered MiraLax oral powder for reconstitution = 17 Gm, By Mouth, Daily, dissolve in water before taking, # 527 Gm, 0 Refills, Maintenance, 11/17/22 10:47:00 EDT, REC Powder, [facility] #[id number], Partial fill upon patient request if the prescription is for a schedule II opioid drug., 17 Gm... Start Date: 11/17/22 Status: Ordered morphine 15 mg oral tablet, immediate release 1 tablet = 15 mg, By Mouth, Every 4 hours, PRN as needed for pain, # 10 tablet, 0 Refills, Maintenance, 04/03/23 19:18:00 EDT, Tablet, [facility] #[id number], Partial fill upon patient request if the prescription is for a schedule II opioid drug.... Start Date: 04/03/23 Status: Ordered ondansetron 4 mg oral tablet, disintegrating 1 tablet = 4 mg, By Mouth, Every 8 hours, PRN as needed for nausea/vomiting, # 10 tablet, 0 Refills, Maintenance, 04/03/23 19:22:00 EDT, DIS Tablet, [facility] #[id number], Partial fill upon patient request if the [...] Refills, Soft Stop, 01/25/23 10:30:00 EDT, Tablet, [facility] #0... Start Date: 01/25/23 Status: Ordered Problem [...] Name: Vivi Bailey NP Position: [facility] PCO Associate Professional Member Role: Lifetime Consulting Provider Address: Address: [address] [place] [address] Name: Gauri Pascual Position: [facility] RN Member Role: Primary Care Nurse Name: Lorraine Zendejas MD Position: [facility] Physician - Primary Care Member Role: PCP Address: Address: [address] [place] [address]- [place] Care Team Related Persons Name: KENDAL PHELPS Address: home [address] [place] [address] Name: RELL PHELPS Address: [address] [address] Name: RUSLAN ABREU Address: [address] Address: home [address] [place] [address] [place] Name: NAY DEL ANGEL Address: home [address] [place] [address] Name: PRAVIN PARKER Address: [address] [place] [address] Name: ADITHYA HAYDEN Address: [address] Address: [address] [address] [place] Name: PRAVIN HAYDEN Address: home [address] [place] [address]
--- OUTSIDE RECORDS SUMMARY | 2023-11-16 17:21 | XMS_ITS | Continuity of Care Document ---
Author Organization [facility] ter Address [address] [place] [address]- Care Team Providers Care Trade Show Specialist Name Role Phone Lorraine Zendejas MD Primary Care Physician [facility]counter [facility] Date[facility]s): 10/29/21 - 10/30/[address] [address]- Discharge Disposition: A-D/C Home Attending Physician: Gavin Rene DO Admitting Physician: Gavin Rene DO Referring Physician: Not on Staff, Referring [...] 5 Refills, Maintenance, 11/16/20 15:34:00 EDT, Aerosol, [facility] #[id number], Partial fill upon patient request if the prescription is for a schedule II opioid drug., 2 puffs Inhalation 2 times a d... Start Date: 11/16/20 Status: Ordered aspirin 81 mg oral delayed release tablet 2 tablet = 162 mg, By Mouth, Daily, start at 12 weeks, 09/11/21, # 90 tablet, 0 Refills, Maintenance,08/16/21 13:37:00 EST, CR Tablet, [facility] #[id number], Partial fill upon patient request ifthe prescription is for a schedule II opioid drug.,... Start Date: 08/16/21 Status: Ordered Benadryl 25 mg oral capsule 2 capsule = 50 mg, By Mouth, Daily at bedtime, PRN Pain , Moderate, # 100 capsule, 0 Refills, Maintenance, 10/04/21 2:02:00 EST, Capsule, [facility] #[id number], Partial fill upon patient request if the prescription is for a schedule II opioid dr... Start Date: 10/04/21 Status: Ordered clotrimazole 1% vaginal cream with applicator 1 application, Vaginally, Daily at bedtime, Apply vaginally each night for 1 week., # 45 Gm, 0 Refills, Maintenance, 10/12/21 14:02:00 EST, Cream, [facility] #[id number], Partial fill upon patient request if the prescription is for a schedule II... Start Date: 10/12/21 Status: Ordered Lidoderm 5% film 1 patch, Topically, Daily, (remove patch(s) after 12 hours), # 30 patch, 0 Refills, Maintenance, 10/12/20 11:07:00 EST, [facility] #[id number], Partial fill upon patient request if the prescription is for a schedule II opioid drug., 1 patch Topic... Start Date: 10/12/20 Status: Ordered Medrol Dosepak 4 mg oral tablet See Instructions, as directed on package labeling, # 1 each, 5 Refills, Acute 11/05/21 3:20:00 EDT,10/30/21 3:20:00 EDT, Tablet, [facility] #[id number], Partial fill upon patient request if theprescription is for a schedule II opioid drug., 154... Start Date: 10/30/21 Stop Date: 11/05/21 Status: Ordered MiraLax oral powder for reconstitution = 17 Gm, By Mouth, Daily, dissolve in water before taking, # 527 Gm, 0 Refills, Maintenance, 08/16/21 13:56:00 EST, REC Powder, [facility] #[id number], Partial fill upon patient request if the prescription is for a schedule II opioid drug., 17 Gm... Start Date: 08/16/21 Status: Ordered Multivitamins with Folic Acid 1 mg oral tablet 1 tablet, By Mouth, Daily, # 90 tablet, 3 Refills, Maintenance, 09/16/21 15:48:00 EST, Tablet, [facility] #[id number], Partial fill upon patient request if the prescription is for a schedule II opioid drug., 1 tablet By Mouth Daily, 157, cm, 020... Start Date: 09/16/21 Status: Ordered Multivitamins with Vitamin B Complex, Vitamin C, Minerals and L- Methylfolate oral capsule 1 capsule, By Mouth, Daily, # 30 capsule, 11 Refills, Maintenance, 08/05/21 17:50:00 EST, Capsule, [facility] #[id number], Partial fill upon patient request if the prescription is for a scheduleII opioid drug., 1 capsule By Mouth Daily, 157, cm,... Start Date: 08/05/21 Status: Ordered ProAir HFA 90 mcg/inh inhalation aerosol with adapter 2, puffs, Inhalation, Every 4 hours, PRN, # 8.5 Gm, Refills 5, Tot. Refills 5, Maintenance, 01/06/21 8:08:00 EDT, Aerosol, Route to Pharmacy Electronically, [id number], [facility] #[id number], 157, cm, 11/17/20 9:48:00 E... Start Date: 01/06/21 Status: Ordered Reglan 5 mg oral tablet 2 tablet = 10 mg, By Mouth, Once, # 28 tablet, 0 Refills, Soft Stop, 10/04/21 2:02:00 EST, Tablet, [facility] #[id number], Partial fill upon patient request if the [...] recent to oldest [Reference Range]: 1 2 Oxygen Saturation [94-100 %] 100 % (10/30/21 3:45 AM) 100 % (10/29/21 11:39 PM) Pulse Rate [55-90 bpm] 82 bpm (10/30/21 3:45 AM) 78 bpm (10/29/21 11:39 PM) Blood Pressure [90-138/55-84 mm Hg] 115/ 62mm Hg (10/30/21 3:45 AM) 110/58mm Hg (10/29/21 11:39 PM) Respiratory Rate [16-30 br/min] 18 br/mi n (10/30/21 3:45 AM) 16 br/min (10/29/21 11:39 PM) Temperature [96.8-100.4 DegF] 98.4 DegF (10/29/21 11:39 PM) Mode of Delivery (Oxygen) Room air (10/30/21 3:45 AM) Room air (10/29/21 11:39 PM) Blood pressure sites Arm, left (10/30/21 3:45 AM) Arm, left (10/29/21 11:39 PM) Temperature Route Oral (10/29/21 11:39 PM) Social History Social History Type Response Smoking Status Never smoker; Tobacc o user in household: No entered on: 12/05/16 Sex Female"
--- OUTSIDE RECORDS SUMMARY | 2023-11-16 17:21 | XMS_ITS | Continuity of Care Document ---
Author Organization [facility] n[facility] Address [address] [facility], [address] [place] [address]- Care Team Providers Care Cryptologist Name Role Phone Aashish IBARRA, Lorraine Primary Care Physician [phone] [facility]counter [facility] Date(s): 07/25/21 - 08/24/21 [facility] [address] [place], [place] [address] Allergies, Adverse [...] 5 Refills, Maintenance, 11/16/20 15:34:00 EDT, Aerosol, [facility] #[id number], Partial fill upon patient request if the prescription is for a schedule II opioid drug., 2 puffs Inhalation 2 times a d... Start Date: 11/16/20 Status: Ordered aspirin 81 mg oral delayed release tablet 2 tablet = 162 mg, By Mouth, Daily, start at 12 weeks, 09/11/21, # 90 tablet, 0 Refills, Maintenance,08/16/21 13:37:00 EST, CR Tablet, [facility] #[id number], Partial fill upon patient request ifthe prescription is for a schedule II opioid drug.,... Start Date: 08/16/21 Status: Ordered cyclobenzaprine 10 mg oral tablet 1, tablet, By Mouth, 3 times a day, PRN, # 45 tablet, Refills 0, Tot. Refills 0, Acute, NEEDED FOR SPASM, 08/25/20 9:53:00 EST, Route to Pharmacy Electronically, [facility] #[id number], 157, cm, 06/08/20 15:12:00 EST, Height, 84.5, kg, ... Start Date: 08/25/20 Status: Ordered Lidoderm 5% film 1 patch, Topically, Daily, (remove patch(s) after 12 hours), # 30 patch, 0 Refills, Maintenance, 10/12/20 11:07:00 EST, [facility] #[id number], Partial fill upon patient request if the prescription is for a schedule II opioid drug., 1 patch Topic... Start Date: 10/12/20 Status: Ordered MiraLax oral powder for reconstitution = 17 Gm, By Mouth, Daily, dissolve in water before taking, # 527 Gm, 0 Refills, Maintenance, 08/16/21 13:56:00 EST, REC Powder, [facility] #[id number], Partial fill upon patient request if the prescription is for a schedule II opioid drug., 17 Gm... Start Date: 08/16/21 Status: Ordered Multivitamins with Vitamin B Complex, Vitamin C, Minerals and L- Methylfolate oral capsule 1 capsule, By Mouth, Daily, # 30 capsule, 11 Refills, Maintenance, 08/05/21 17:50:00 EST, Capsule, [facility] #[id number], Partial fill upon patient request if the prescription is for a scheduleII opioid drug., 1 capsule By Mouth Daily, 157, cm,... Start Date: 08/05/21 Status: Ordered ProAir HFA 90 mcg/inh inhalation aerosol with adapter 2, puffs, Inhalation, Every 4 hours, PRN, # 8.5 Gm, Refills 5, Tot. Refills 5, Maintenance, 01/06/21 8:08:00 EDT, Aerosol, Route to Pharmacy Electronically, [id number], [facility] #[id number], 157, cm, 11/17/20 9:48:00 E... Start Date: [...] tablet, 0 Refills, Maintenance, 12/13/20 14:28:00 EDT, [facility] #[id number], 157, cm, 11/17/20 9:48:00 EDT, Height, 84.5, kg... Start Date: 12/13/20 Status: Ordered Unisom 25 mg oral tablet 1 tablet = 25 mg, By Mouth, Daily, 15 to 30 minutes before bed, # 30 tablet, 1 Refills, Acute 09/16/21 13:36:00 EST, 08/16/21 13:36:00 EST, Tablet, [facility] #[id number], Partial fill upon patient request if the prescription is for a schedule II... Start Date: 08/16/21 Stop Date: 09/16/21 Status: Ordered Vitamin B6 25 mg oral tablet 1 tablet = 25 mg, By Mouth, 3 times a day, # 100 tablet, 1 Refills, Acute 09/16/21 13:37:00 EST, 08/16/21 13:36:00 EST, [facility] #[id number], Partial fill upon patient request if the prescription is for a schedule II opioid drug., 157, cm, 2... Start Date: 08/16/21 Stop Date: 09/16/21 Status: Ordered Xulane 150 mcg-35 mcg/24 hr transdermal film, extended release 1 patch, Topically, Every week, # 3 each, 11 Refills, Maintenance, 03/29/21 11:42:00 EDT, [facility] #[id number], 1 patch Topically Every week,x7 days, 157, cm, 03/29/21 10:26:00 EDT, Height, 84.5, kg, 04/29/19 4:40:00 EDT, Dry Weight Start Date: 03/29/21 Stop Date: 06/21/21 Status: Ordered Zofran 4 mg oral tablet 1 tablet = 4 mg, By Mouth, Every 8 hours, PRN Nausea & Vomiting, # 20 tablet, 0 Refills, Acute 09/17/21 13:56:00 EST, 08/16/21 13:56:00 EST, Tablet, [facility] #[id number], Partial fill uponpatient request if the prescription [...]
--- OUTSIDE RECORDS SUMMARY | 2023-11-16 17:21 | XMS_ITS | Continuity of Care Document ---
Author Organization [facility] Address [address] [place] [address]- Care Team Providers Care Commercial Loan Manager Name Role Phone Aashish IBARRA, Lorraine Primary Care Physician [facility]counter [facility] Date(s): 07/18/21 - 08/17/[address] [address] Allergies, Adverse Reactions, Alerts Substance [...] 5 Refills, Maintenance, 11/16/20 15:34:00 EDT, Aerosol, [facility] #[id number], Partial fill upon patient request if the prescription is for a schedule II opioid drug., 2 puffs Inhalation 2 times a d... Start Date: 11/16/20 Status: Ordered aspirin 81 mg oral delayed release tablet 2 tablet = 162 mg, By Mouth, Daily, start at 12 weeks, 09/11/21, # 90 tablet, 0 Refills, Maintenance,08/16/21 13:37:00 EST, CR Tablet, [facility] #[id number], Partial fill upon patient request ifthe prescription is for a schedule II opioid drug.,... Start Date: 08/16/21 Status: Ordered cyclobenzaprine 10 mg oral tablet 1, tablet, By Mouth, 3 times a day, PRN, # 45 tablet, Refills 0, Tot. Refills 0, Acute, NEEDED FOR SPASM, 08/25/20 9:53:00 EST, Route to Pharmacy Electronically, [facility] #[id number], 157, cm, 06/08/20 15:12:00 EST, Height, 84.5, kg, ... Start Date: 08/25/20 Status: Ordered Lidoderm 5% film 1 patch, Topically, Daily, (remove patch(s) after 12 hours), # 30 patch, 0 Refills, Maintenance, 10/12/20 11:07:00 EST, [facility] #[id number], Partial fill upon patient request if the prescription is for a schedule II opioid drug., 1 patch Topic... Start Date: 10/12/20 Status: Ordered MiraLax oral powder for reconstitution = 17 Gm, By Mouth, Daily, dissolve in water before taking, # 527 Gm, 0 Refills, Maintenance, 08/16/21 13:56:00 EST, REC Powder, [facility] #[id number], Partial fill upon patient request if the prescription is for a schedule II opioid drug., 17 Gm... Start Date: 08/16/21 Status: Ordered Multivitamins with Vitamin B Complex, Vitamin C, Minerals and L- Methylfolate oral capsule 1 capsule, By Mouth, Daily, # 30 capsule, 11 Refills, Maintenance, 08/05/21 17:50:00 EST, Capsule, [facility] #[id number], Partial fill upon patient request if the prescription is for a scheduleII opioid drug., 1 capsule By Mouth Daily, 157, cm,... Start Date: 08/05/21 Status: Ordered ProAir HFA 90 mcg/inh inhalation aerosol with adapter 2, puffs, Inhalation, Every 4 hours, PRN, # 8.5 Gm, Refills 5, Tot. Refills 5, Maintenance, 01/06/21 8:08:00 EDT, Aerosol, Route to Pharmacy Electronically, [id number], [facility] #[id number], 157, cm, 11/17/20 9:48:00 E... Start Date: [...] tablet, 0 Refills, Maintenance, 12/13/20 14:28:00 EDT, [facility] #[id number], 157, cm, 11/17/20 9:48:00 EDT, Height, 84.5, kg... Start Date: 12/13/20 Status: Ordered Unisom 25 mg oral tablet 1 tablet = 25 mg, By Mouth, Daily, 15 to 30 minutes before bed, # 30 tablet, 1 Refills, Acute 09/16/21 13:36:00 EST, 08/16/21 13:36:00 EST, Tablet, [facility] #[id number], Partial fill upon patient request if the prescription is for a schedule II... Start Date: 08/16/21 Stop Date: 09/16/21 Status: Ordered Vitamin B6 25 mg oral tablet 1 tablet = 25 mg, By Mouth, 3 times a day, # 100 tablet, 1 Refills, Acute 09/16/21 13:37:00 EST, 08/16/21 13:36:00 EST, [facility] #[id number], Partial fill upon patient request if the prescription is for a schedule II opioid drug., 157, cm, 2... Start Date: 08/16/21 Stop Date: 09/16/21 Status: Ordered Xulane 150 mcg-35 mcg/24 hr transdermal film, extended release 1 patch, Topically, Every week, # 3 each, 11 Refills, Maintenance, 03/29/21 11:42:00 EDT, [facility] #[id number], 1 patch Topically Every week,x7 days, 157, cm, 03/29/21 10:26:00 EDT, Height, 84.5, kg, 04/29/19 4:40:00 EDT, Dry Weight Start Date: 03/29/21 Stop Date: 06/21/21 Status: Ordered Zofran 4 mg oral tablet 1 tablet = 4 mg, By Mouth, Every 8 hours, PRN Nausea & Vomiting, # 20 tablet, 0 Refills, Acute 09/17/21 13:56:00 EST, 08/16/21 13:56:00 EST, Tablet, [facility] #[id number], Partial fill uponpatient request if the prescription [...]
--- OUTSIDE RECORDS SUMMARY | 2023-11-16 17:21 | XMS_ITS | Continuity of Care Document ---
Author Organization [facility] ter Address [address] [place] [address]- Care Team Providers Care Blood Bank Laboratory Technologist Name Role Phone Aashish IBARRA, Lorraine Primary Care Physician [facility] Date(s): 05/05/19 - 07/25/[address] [address]- [facility] Attending Physician: Fam IBARRA, Barrett Acosta Admitting Physician: Fam IBARRA, Barrett Acosta Referring Physician: Heather Alvarez DO Allergies, Adverse Reactions, Alerts Substance Reaction [...] 05/02/19 6:54:27 EDT, Route to Pharmacy Electronically, [id number], [facility] #[id number] Start Date: 05/02/19 Status: Ordered DOUBLE ELECTRIC [...] 11:47:01 EDT, Aerosol, Route to Pharmacy Electronically, [id number], [facility] [id number] Start Date: 10/30/18 Status: Ordered Slow Fe [...]
--- OUTSIDE RECORDS SUMMARY | 2023-11-16 17:21 | XMS_ITS | Continuity of Care Document ---
Author Organization [facility] Address [address] [place] [address]- Care Team Providers Care Planning Management It Specialist Name Role Phone Lorraine Zendejas MD Primary Care Physician Encounter [facility] R [id number] Date(s): 09/03/23 - 10/07/23 [facility] [address] [place] [address]- Attending Physician: Dmitri Leon MD Admitting Physician: Dmitri Leon MD Referring Physician: Chastity Malloy Allergies, Adverse [...] 08/15/22 15:08:00 EST, Route to Pharmacy Electronically, [facility] #[id number], Partial fill upon patient request if the prescription... Start Date: 08/15/22 Status: Ordered Advair HFA 115 mcg / 21 mcg 2 puffs, Inhalation, 2 times a day, # 1 each, 5 Refills, Maintenance, 05/03/22 16:02:00 EDT, Aerosol, [facility] #[id number], Partial fill upon patient request if the prescription is for a schedule II opioid drug., 2 puffs Inhalation 2 times a da... Start Date: 05/03/22 Stop Date: 10/30/22 Status: Ordered albuterol 0.083% inhalation solution 3 mL = 2.5 mg, Inhalation, Every 6 hours, PRN for wheezing, # 25 each, 0 Refills, Maintenance, 05/29/23 20:07:00 EDT, Solution, [facility] #[id number], Partial fill upon patient request if the prescription is for a schedule II opioid drug., 156,... Start Date: 05/29/23 Status: Ordered cetirizine 5 mg oral tablet = 5 mg, By Mouth, Daily, # 30 tablet, 0 Refills, Maintenance, 11/17/22 10:48:00 EDT, Tablet, [facility] #[id number], Partial fill upon patient request if the prescription is for a schedule II opioid drug., 156, cm, 11/17/22 8:44:00 EDT, Height, 8... Start Date: 11/17/22 Status: Ordered Depakote 250 mg oral enteric coated tablet 1 tablet = 250 mg, By Mouth, 2 times a day, # 60 tablet, 3 Refills, Maintenance, 02/28/23 16:39:00 EDT, [facility] #[id number], Partial fill upon patient request if the prescription is for a schedule II opioid drug., 155, cm, 02/28/23 11:38:00 ED... Start Date: 02/28/23 Status: Ordered dicyclomine 20 mg oral tablet 1 tablet = 20 mg, By Mouth, 4 times a day, 30 to 60 minutes before meals, # 28 tablet, 4 Refills, Maintenance, 04/05/23 11:18:00 EDT, Tablet, [facility] #[id number], Partial fill upon patient request if the prescription is for a schedule II opioi... Start Date: 04/05/23 Stop Date: 05/10/23 Status: Ordered ibuprofen 400 mg oral tablet 400 mg, 1, tablet, By Mouth, Every 4 hours, PRN, # 60 tablet, Refills 0, Tot. Refills 0, Maintenance, for pain, 11/17/22 10:49:00 EDT, Route to Pharmacy Electronically, [facility] #[id number], Partial fill upon patient request if the prescription... Start Date: 11/17/22 Status: Ordered MiraLax oral powder for reconstitution = 17 Gm, By Mouth, Daily, dissolve in water before taking, # 527 Gm, 0 Refills, Maintenance, 11/17/22 10:47:00 EDT, REC Powder, [facility] #[id number], Partial fill upon patient request if the prescription is for a schedule II opioid drug., 17 Gm... Start Date: 11/17/22 Status: Ordered Nexplanon 68 mg subcutaneous implant 1 each = 68 mg, Subcutaneous Infusion, Once, Left arm, placed 07/23/2023 Lot #[id number], # 1 each, 0 Refills, Maintenance, 07/23/23 16:11:00 EST, Partial fill upon patient request if the prescription is for a schedule II opioid drug. Start Date: 07/23/23 Status: Ordered ondansetron 4 mg oral tablet, disintegrating 1 tablet = 4 mg, By Mouth, Every 8 hours, PRN Nausea & Vomiting, # 10 tablet, 0 Refills, Maintenance, 09/15/23 11:34:00 EST, Tablet, [facility] #[id number], Partial fill upon patient requestif the prescription [...] Refills, Soft Stop, 01/25/23 10:30:00 EDT, Tablet, [facility] #0... Start Date: 01/25/23 Status: Ordered Problem [...] Team Personnel Name: Vivi Bailey NP Position: [facility] PCO Associate Professional Member Role: Lifetime Consulting Provider Address: Address: [address] [place] [address]- Name: Gauri Pascual Position: [facility] RN Member Role: Primary Care Nurse Name: Lorraine Zendejas MD Position: [facility] Physician - Primary Care Member Role: PCP Address: Address: [address] [place] [address]- Care Team Related Persons Name: KENDAL PHELPS Address: home [address] [place] [address] Name: RELL PHELPS Address: [address] [address] Name: RUSLAN ABREU Address: [address] Address: [address] [place] [address] [place] Name: NAY DEL ANGEL Address: [address] [place] [address] Name: PRAVIN PARKER Address: [address] [place] [address] Name: ADITHYA HAYDEN Address: [address] Address: [address] [place] [address] [place] Name: PRAVIN HAYDEN Address: [address] [place] [address]
--- OUTSIDE RECORDS SUMMARY | 2023-11-16 17:21 | XMS_ITS | Continuity of Care Document ---
Author Organization [facility] ter Address [address] [place] [address]- Care Team Providers Care Muck Farmer Name Role Phone Lorraine Zendejas MD Primary Care Physician [facility] Date(s): 08/17/21 - 12/09/[address] [address] Attending Physician: Michaelle Garg Admitting Physician: Michaelle Garg Referring Physician: Michaelle Garg Allergies, Adverse Reactions, Alerts [...] 5 Refills, Maintenance, 11/25/21 15:15:00 EDT, Aerosol, [facility] #[id number], Partial fill upon patient request if the prescription is for a schedule II opioid drug., 2 puffs Inhalation 2 times a d... Start Date: 11/25/21 Status: Ordered aspirin 81 mg oral delayed release tablet 2 tablet = 162 mg, By Mouth, Daily, start at 12 weeks, 09/11/21, # 90 tablet, 0 Refills, Maintenance,08/16/21 13:37:00 EST, CR Tablet, [facility] #[id number], Partial fill upon patient request ifthe prescription is for a schedule II opioid drug.,... Start Date: 08/16/21 Status: Ordered Benadryl 25 mg oral capsule 2 capsule = 50 mg, By Mouth, Daily at bedtime, PRN Pain , Moderate, # 100 capsule, 0 Refills, Maintenance, 11/08/21 15:02:00 EDT, Capsule, [facility] #[id number], Partial fill upon patient request if the prescription is for a schedule II opioid d... Start Date: 11/08/21 Status: Ordered clotrimazole 1% vaginal cream with applicator 1 application, Vaginally, Daily at bedtime, Apply vaginally each night for 1 week., # 45 Gm, 0 Refills, Maintenance, 10/12/21 14:02:00 EST, Cream, [facility] #[id number], Partial fill upon patient request if the prescription is for a schedule II... Start Date: 10/12/21 Status: Ordered Lidoderm 5% film 1 patch, Topically, Daily, (remove patch(s) after 12 hours), # 30 patch, 5 Refills, Maintenance, 11/25/21 15:09:00 EDT, [facility] #[id number], Partial fill upon patient request if the prescription is for a schedule II opioid drug., 1 patch Topic... Start Date: 11/25/21 Status: Ordered MiraLax oral powder for reconstitution = 17 Gm, By Mouth, Daily, dissolve in water before taking, # 527 Gm, 0 Refills, Maintenance, 08/16/21 13:56:00 EST, REC Powder, [facility] #[id number], Partial fill upon patient request if the prescription is for a schedule II opioid drug., 17 Gm... Start Date: 08/16/21 Status: Ordered Multivitamins with Folic Acid 1 mg oral tablet 1 tablet, By Mouth, Daily, # 90 tablet, 3 Refills, Maintenance, 09/16/21 15:48:00 EST, Tablet, [facility] #[id number], Partial fill upon patient request if the prescription is for a schedule II opioid drug., 1 tablet By Mouth Daily, 157, cm, 0... Start Date: 09/16/21 Status: Ordered Multivitamins with Vitamin B Complex, Vitamin C, Minerals and L- Methylfolate oral capsule 1 capsule, By Mouth, Daily, # 30 capsule, 11 Refills, Maintenance, 08/05/21 17:50:00 EST, Capsule, [facility] #[id number], Partial fill upon patient request if the prescription is for a scheduleII opioid drug., 1 capsule By Mouth Daily, 157, cm,... Start Date: 08/05/21 Status: Ordered ProAir HFA 90 mcg/inh inhalation aerosol with adapter 2, puffs, Inhalation, Every 4 hours, PRN, # 8.5 Gm, Refills 2, Tot. Refills 2, Maintenance, 11/25/21 15:15:00 EDT, Aerosol, Route to Pharmacy Electronically, [id number], [facility] #[id number], 154, cm, 11/25/21 14:53:00... Start Date: 11/25/21 Status: Ordered Reglan 5 mg oral tablet 2 tablet = 10 mg, By Mouth, Once, # 28 tablet, 0 Refills, Soft Stop, 11/08/21 15:03:00 EDT, Tablet,[facility] #[id number], Partial fill upon patient request if the [...]
--- OUTSIDE RECORDS SUMMARY | 2023-11-16 17:21 | XMS_ITS | Continuity of Care Document ---
Author Organization [facility] Address [address] [place] [address]- Care Team Providers Care Manager Business Planning Name Role Phone Lorraine Zendejsa MD Primary Care Physician Encounter [facility] Date(s): 04/25/22 - 05/25/[address] [address] Attending Physician: Roque Villela Admitting Physician: AdmRoque vasquez Referring Physician: AdmtrRoque Allergies, Adverse Reactions, Alerts Substance Reaction Severity Status sulfADIAZINE Unknown Active oxyCODONE Active Immunizations Given and Recorded Vaccine Date Status Refusal Reason tetanus/diphtheria/pertussis, acel(Tdap) 01/04/22 Given tetanus/diphtheria/pertussis, acel(Tdap) 02/12/19 Given tetanus/diphtheria/pertussis, acel(Tdap) 05/08/17 Given tetanus/diphtheria/pertussis, acel(Tdap) 07/04/10 Given influenza virus vaccine, inactivated 06/06/21 Saramd rded influenza virus vaccine, inactivated 06/08/20 Give [...] 0 Refills, Maintenance, 05/17/22 15:05:00 EDT, Capsule, [facility] #[id number], Partial fill upon patient request if the prescription is for a schedule II opioid . Start Date: 05/17/22 Status: Ordered Advair HFA 115 mcg / 21 mcg 2 puffs, Inhalation, 2 times a day, # 1 each, 5 Refills, Maintenance, 05/03/22 16:02:00 EDT, Aerosol, [facility] #[id number], Partial fill upon patient request if the prescription is for a schedule II opioid drug., 2 puffs Inhalation 2 times a da... Start Date: 05/03/22 Stop Date: 10/30/22 Status: Ordered albuterol CFC free 90 mcg/inh inhalation aerosol 2, puffs, Inhalation, Every 6 hours, PRN, # 8.5 Gm, Refills 11, Tot. Refills 11, Maintenance, 05/03/22 11:45:00 EDT, Aerosol, Route to Pharmacy Electronically, [id number], [facility] #[id number], dispense brand preferred... Start Date: 05/03/22 Stop Date: 04/28/23 Status: Ordered clotrimazole 1% topical cream 1 application, Topically, 2 times a day, # 12 Gm, 0 Refills, Maintenance, 04/11/22 4:42:00 EDT, Cream, [facility] #[id number], Partial fill upon patient request if the prescription is for a schedule II opioid drug., 1 application Topically 2 time... Start Date: 04/11/22 Status: Ordered Colace sodium 100 mg oral capsule 100 mg, 1, capsule, By Mouth, 2 times a day, PRN, # 20 capsule, Refills 0, Tot. Refills 0, Maintenance, for constipation, 03/18/22 15:18:00 EDT, Route to Pharmacy Electronically, [facility]#[id number], Partial fill upon patient request if the pr... Start Date: 03/18/22 Status: Ordered Dilaudid 2 mg oral tablet 1 tablet = 2 mg, By Mouth, Every 4 hours, # 10 tablet, 0 Refills, Maintenance, 03/18/22 18:17:00 EDT, Tablet, [facility] #[id number], Partial fill upon patient request if the prescription is fora schedule II opioid drug., 154, cm, 03/18/22 11:26... Start Date: 03/18/22 Status: Ordered ferrous sulfate 325 mg oral tablet 1 tablet = 325 mg, By Mouth, Daily, # 30 tablet, 3 Refills, Maintenance, 01/05/22 12:46:00 EDT, Tablet, [facility] #[id number], Partial fill upon patient request if the prescription is for a schedule II opioid drug., 154, cm, 01/04/22 13:56:00 ED... Start Date: 01/05/22 Status: Ordered ibuprofen 600 mg oral tablet 600 mg, 1, tablet, By Mouth, Every 6 hours, # 50 tablet, Refills 0, Tot. Refills 0, Maintenance, 03/18/22 15:18:00 EDT, Route to Pharmacy Electronically, [facility] #[id number], Partial fill upon patient request if the prescription is for a sched... Start Date: 03/18/22 Status: Ordered magnesium oxide 400 mg oral tablet 1 tablet = 400 mg, By Mouth, Daily, for 30 days, to treat and prevent headaches, # 30 tablet, 3 Refills, Acute 06/22/22 19:25:00 EST, 02/22/22 19:25:00 EDT, Tablet, [facility] #[id number], Partial fill upon patient request if the prescription is... Start Date: 02/22/22 Stop Date: 06/22/22 Status: Ordered MiraLax oral powder for reconstitution = 17 Gm, By Mouth, Daily, dissolve in water before taking, # 527 Gm, 0 Refills, Maintenance, 08/16/21 13:56:00 EST, REC Powder, [facility] #[id number], Partial fill upon patient request if the prescription is for a schedule II opioid drug., 17 Gm... Start Date: 08/16/21 Status: Ordered Multivitamins with Folic Acid 1 mg oral tablet 1 tablet, By Mouth, Daily, # 90 tablet, 3 Refills, Maintenance, 05/03/22 12:05:00 EDT, Tablet, [facility] #[id number], Partial fill upon patient request if the prescription is for a schedule II opioid drug., 1 tablet By Mouth Daily,x90 days, 157,... Start Date: 05/03/22 Stop Date: 04/28/23 Status: Ordered simethicone 125 mg oral tablet, chewable 1 tablet = 125 mg, Chew, 4 times a day, # 48 tablet, 0 Refills, Maintenance, 03/18/22 15:18:00 EDT,Chew Tablet, [facility] #[id number], Partial fill upon patient request if the [...] 0 Refills, Maintenance, 03/18/22 15:18:00 EDT, Cream, [facility] #[id number], Partial fill upon patient request if the [...] Personnel Name: Lorraine Zendejas MD Address: Address: [address] [place] [address]
--- OUTSIDE RECORDS SUMMARY | 2023-11-16 17:21 | XMS_ITS | Continuity of Care Document ---
Author Organization [facility] Address [address] [place] [address]- Care Team Providers Care Provider Network Manager Name Role Phone Aashish IBARRA, Lorraine Primary Care Physician Encounter [facility] Date(s): 10/25/20 - 11/24/[address] [address]- Allergies, Adverse Reactions, Alerts Substance Reaction Severity [...] 5 Refills, Maintenance, 11/16/20 15:34:00 EDT, Aerosol, [facility] #[id number], Partial fill upon patient request if the prescription is for a schedule II opioid drug., 2 puffs Inhalation 2 times a d... Start Date: 11/16/20 Status: Ordered Ambien 5 mg oral tablet See Instructions, 1 tablet to take the night of in lab sleep study, after arrival to sleep lab, # 1tablet, 0 Refills, Acute 02/10/21 9:42:00 EDT, 11/11/20 9:41:00 EDT, [facility] #[id number], Partial fill upon patient request if the prescription... Start Date: 11/11/20 Stop Date: 02/10/21 Status: Ordered cyclobenzaprine 10 mg oral tablet 1, tablet, By Mouth, 3 times a day, PRN, # 45 tablet, Refills 0, Tot. Refills 0, Acute, NEEDED FOR SPASM, 08/25/20 9:53:00 EST, Route to Pharmacy Electronically, [facility] #[id number], 157, cm, 06/08/20 15:12:00 EST, Height, 84.5, kg, ... Start Date: 08/25/20 Status: Ordered Lidoderm 5% film 1 patch, Topically, Daily, (remove patch(s) after 12 hours), # 30 patch, 0 Refills, Maintenance, 10/12/20 11:07:00 EST, [facility] #[id number], Partial fill upon patient request if the prescription is for a schedule II opioid drug., 1 patch Topic... Start Date: 10/12/20 Status: Ordered ProAir HFA 90 mcg/inh inhalation aerosol with adapter 2, puffs, Inhalation, Every 4 hours, PRN, # 8.5 Gm, Refills 5, Tot. Refills 5, Maintenance, 08/04/20 12:45:00 EST, Aerosol, Route to Pharmacy Electronically, [id number], [facility] #[id number], 157, cm, 06/08/20 15:12:00... Start Date: 08/04/20 [...] # 18 tablet, 1 Refills, Soft Stop, [facility] #[id number], 157, cm, 07/31/19 8:49:00 EST, Height, 84.5, kg, 04/29/19 4:40:00 EDT, D... Start Date: 10/07/19 Status: Ordered Xulane 150 mcg-35 mcg/24 hr transdermal film, extended release 1 patch, Topically, Every week, # 3 each, 11 Refills, Maintenance, 05/26/20 10:54:00 EDT, [facility] #[id number], 1 patch Topically Every week,x7 days, 157, [...]
--- OUTSIDE RECORDS SUMMARY | 2023-11-16 17:21 | XMS_ITS | Continuity of Care Document ---
Author Organization [facility] Address [address] [place] [address]- Care Team Providers Care Computer Scientist Name Role Phone Aashish IBARRA, Lorraine Primary Care Physician Encounter [facility] Date(s): 11/08/20 - 12/08/[address] [address]- Allergies, Adverse Reactions, Alerts Substance Reaction Severity [...] 5 Refills, Maintenance, 11/16/20 15:34:00 EDT, Aerosol, [facility] #[id number], Partial fill upon patient request if the prescription is for a schedule II opioid drug., 2 puffs Inhalation 2 times a d... Start Date: 11/16/20 Status: Ordered Ambien 5 mg oral tablet See Instructions, 1 tablet to take the night of in lab sleep study, after arrival to sleep lab, # 1tablet, 0 Refills, Acute 02/10/21 9:42:00 EDT, 11/11/20 9:41:00 EDT, [facility] #[id number], Partial fill upon patient request if the prescription... Start Date: 11/11/20 Stop Date: 02/10/21 Status: Ordered cyclobenzaprine 10 mg oral tablet 1, tablet, By Mouth, 3 times a day, PRN, # 45 tablet, Refills 0, Tot. Refills 0, Acute, NEEDED FOR SPASM, 08/25/20 9:53:00 EST, Route to Pharmacy Electronically, [facility] #[id number], 157, cm, 06/08/20 15:12:00 EST, Height, 84.5, kg, ... Start Date: 08/25/20 Status: Ordered Lidoderm 5% film 1 patch, Topically, Daily, (remove patch(s) after 12 hours), # 30 patch, 0 Refills, Maintenance, 10/12/20 11:07:00 EST, [facility] #[id number], Partial fill upon patient request if the prescription is for a schedule II opioid drug., 1 patch Topic... Start Date: 10/12/20 Status: Ordered ProAir HFA 90 mcg/inh inhalation aerosol with adapter 2, puffs, Inhalation, Every 4 hours, PRN, # 8.5 Gm, Refills 5, Tot. Refills 5, Maintenance, 08/04/20 12:45:00 EST, Aerosol, Route to Pharmacy Electronically, [id number], [facility] #[id number], 157, cm, 06/08/20 15:12:00... Start Date: 08/04/20 [...] # 18 tablet, 1 Refills, Soft Stop, [facility] #[id number], 157, cm, 07/31/19 8:49:00 EST, Height, 84.5, kg, 04/29/19 4:40:00 EDT, D... Start Date: 10/07/19 Status: Ordered Xulane 150 mcg-35 mcg/24 hr transdermal film, extended release 1 patch, Topically, Every week, # 3 each, 11 Refills, Maintenance, 05/26/20 10:54:00 EDT, [facility] #[id number], 1 patch Topically Every week,x7 days, 157, [...]
--- OUTSIDE RECORDS SUMMARY | 2023-11-16 17:21 | XMS_ITS | Continuity of Care Document ---
Author Organization [facility] Address [address], [address], [address] [place] [address]- Care Team Providers Care Door Puller Name Role Phone Lorraine Zendejas MD Primary Care Physician Encounter [facility] Date(s): 04/29/20 - 05/29/20 [facility] [address], [address], [address] [place] [address]- [facility] Attending Physician: Roque Villela Admitting Physician: AdmtrRoque [...] 5 Refills, Maintenance, 11/03/19 12:31:00 EDT, Aerosol, [facility] #[id number], 157, cm, 07/31/19 8:49:00 EST, Height, 84.5, kg, 04/29/19 4:4... Start Date: 11/03/19 Status: Ordered ProAir HFA 90 mcg/inh inhalation aerosol with adapter 2, puffs, Inhalation, Every 4 hours, PRN, # 8.5 Gm, Refills 5, Tot. Refills 5, Maintenance, 11/03/19 12:31:00 EDT, Aerosol, Route to Pharmacy Electronically, [id number], [facility] #[id number], 157, cm, 07/31/19 8:49:00... Start Date: 11/03/19 [...] # 18 tablet, 1 Refills, Soft Stop, [facility] #[id number], 157, cm, 07/31/19 8:49:00 EST, Height, 84.5, kg, 04/29/19 4:40:00 EDT, D... Start Date: 10/07/19 Status: Ordered Xulane 150 mcg-35 mcg/24 hr transdermal film, extended release 1 patch, Topically, Every week, # 3 each, 11 Refills, Maintenance, 05/26/20 10:54:00 EDT, [facility] #[id number], 1 patch Topically Every week,x7 days, 157, [...]
--- OUTSIDE RECORDS SUMMARY | 2023-11-16 17:21 | XMS_ITS | Continuity of Care Document ---
Author Organization [facility] Address [address] [place] [address]- Care Team Providers Care Acid Concentrator Name Role Phone Lorraine Zendejas MD Primary Care Physician Encounter [facility] Date(s): 03/18/20 - 04/17/[address] [address]- [facility] Attending Physician: AdmRoque vasquze Admitting Physician: AdmtrRoque Referring Physician: Admtr, Ar8 [...] 5 Refills, Maintenance, 11/03/19 12:31:00 EDT, Aerosol, [facility] #[id number], 157, cm, 07/31/19 8:49:00 EST, Height, 84.5, kg, 04/29/19 4:4... Start Date: 11/03/19 Status: Ordered ProAir HFA 90 mcg/inh inhalation aerosol with adapter 2, puffs, Inhalation, Every 4 hours, PRN, # 8.5 Gm, Refills 5, Tot. Refills 5, Maintenance, 11/03/19 12:31:00 EDT, Aerosol, Route to Pharmacy Electronically, [id number], [facility] #[id number], 157, cm, 07/31/19 8:49:00... Start Date: 11/03/19 [...] # 18 tablet, 1 Refills, Soft Stop, [facility] #[id number], 157, cm, 07/31/19 8:49:00 EST, Height, 84.5, kg, 04/29/19 4:40:00 EDT, D... Start Date: 10/07/19 Status: Ordered Xulane 150 mcg-35 mcg/24 hr transdermal film, extended release 1 patch, Topically, Every week, # 3 each, 11 Refills, Maintenance, 03/23/20 15:09:00 EDT, [facility] #[id number], 1 patch Topically Every week,x7 days, 157, cm, 03/23/20 15:02:00 EDT, Height, 84.5, kg, 04/29/19 4:40:00 EDT, Dry Weight Start Date: 03/23/20 Stop Date: 06/15/20 Status: Ordered Problem List Condition Effective Dates Status Health Status Inform ant Anemia(Confirmed) Active Asthma(Confirmed) Active Depression(Confirmed) Active Fatigue(Confirmed) Active Headache(Confirmed) Active History of pre-eclampsia(Confirmed) Active Contraception management(Confirmed) Active Social History Social History Type Response Smoking Status Never smoker; Tobacc o user in household: No entered on: 12/05/16 Sex Female
--- OUTSIDE RECORDS SUMMARY | 2023-11-16 17:21 | XMS_ITS | Continuity of Care Document ---
Author Organization [facility] Address [address] [place] [address]- Care Team Providers Care Erector Operator Name Role Phone Aashish IBARRA, Lorraine Primary Care Physician Encounter [facility] Date(s): 04/24/23 - 05/24/23 [facility] [address] [address] Attending Physician: Roque Villela Admitting Physician: Admtr, [place]8 Referring Physician: Admtr, [...] 08/15/22 15:08:00 EST, Route to Pharmacy Electronically, [facility] #[id number], Partial fill upon patient request if the prescription... Start Date: 08/15/22 Status: Ordered Advair HFA 115 mcg / 21 mcg 2 puffs, Inhalation, 2 times a day, # 1 each, 5 Refills, Maintenance, 05/03/22 16:02:00 EDT, Aerosol, [facility] #[id number], Partial fill upon patient request if the prescription is for a schedule II opioid drug., 2 puffs Inhalation 2 times a da... Start Date: 05/03/22 Stop Date: 10/30/22 Status: Ordered albuterol 0.083% inhalation solution 3 mL = 2.5 mg, Inhalation, Every 6 hours, PRN Wheezing/Shortness of Breath, # 60 each, 1 Refills, Maintenance, 11/09/22 13:41:00 EDT, Solution, [facility] #[id number], Partial fill upon patient request if the prescription is for a schedule II opi... Start Date: 11/09/22 Status: Ordered cetirizine 5 mg oral tablet = 5 mg, By Mouth, Daily, # 30 tablet, 0 Refills, Maintenance, 11/17/22 10:48:00 EDT, Tablet, [facility] #[id number], Partial fill upon patient request if the prescription is for a schedule II opioid drug., 156, cm, 11/17/22 8:44:00 EDT, Height, 8... Start Date: 11/17/22 Status: Ordered Depakote 250 mg oral enteric coated tablet 1 tablet = 250 mg, By Mouth, 2 times a day, # 60 tablet, 3 Refills, Maintenance, 02/28/23 16:39:00 EDT, [facility] #[id number], Partial fill upon patient request if the prescription is for a schedule II opioid drug., 155, cm, 02/28/23 11:38:00 ED... Start Date: 02/28/23 Status: Ordered dicyclomine 20 mg oral tablet 1 tablet = 20 mg, By Mouth, 4 times a day, 30 to 60 minutes before meals, # 28 tablet, 4 Refills, Maintenance, 04/05/23 11:18:00 EDT, Tablet, [facility] #[id number], Partial fill upon patient request if the prescription is for a schedule II opioi... Start Date: 04/05/23 Stop Date: 05/10/23 Status: Ordered ibuprofen 400 mg oral tablet 400 mg, 1, tablet, By Mouth, Every 4 hours, PRN, # 60 tablet, Refills 0, Tot. Refills 0, Maintenance, for pain, 11/17/22 10:49:00 EDT, Route to Pharmacy Electronically, [facility] #[id number], Partial fill upon patient request if the prescription... Start Date: 11/17/22 Status: Ordered lidocaine 1.8% topical film 1 patch, Topically, Daily, leave on up to 12 hours, # 30 each, 0 Refills, Maintenance, 11/17/22 10:47:00 EDT, Film, [facility] #[id number], Partial fill upon patient request if the prescription is for a schedule II opioid drug., 1 patch Topically... Start Date: 11/17/22 Status: Ordered metroNIDAZOLE 0.75% topical gel 1 application, Topically, Daily at bedtime, use vaginal applicator to insert vaginally nightly for 5 nights, # 45 Gm, 0 Refills, Maintenance, 02/14/23 16:28:00 EDT, Gel, [facility] #[id number], Partial fill upon patient request if the prescriptio... Start Date: 02/14/23 Stop Date: 02/19/23 Status: Ordered metroNIDAZOLE 500 mg oral tablet 1 tablet = 500 mg, By Mouth, Every 12 hours, # 28 tablet, 0 Refills, Maintenance, 01/25/23 16:14:00EDT, Tablet, [facility] #[id number], Partial fill upon patient request if the prescription is for a schedule II opioid drug., 156, cm, 01/25/23 15... Start Date: 01/25/23 Stop Date: 02/08/23 Status: Ordered MiraLax oral powder for reconstitution = 17 Gm, By Mouth, Daily, dissolve in water before taking, # 527 Gm, 0 Refills, Maintenance, 11/17/22 10:47:00 EDT, REC Powder, [facility] #[id number], Partial fill upon patient request if the prescription is for a schedule II opioid drug., 17 Gm... Start Date: 11/17/22 Status: Ordered morphine 15 mg oral tablet, immediate release 1 tablet = 15 mg, By Mouth, Every 4 hours, PRN as needed for pain, # 10 tablet, 0 Refills, Maintenance, 04/03/23 19:18:00 EDT, Tablet, [facility] #[id number], Partial fill upon patient request if the prescription is for a schedule II opioid drug.... Start Date: 04/03/23 Status: Ordered ondansetron 4 mg oral tablet, disintegrating 1 tablet = 4 mg, By Mouth, Every 8 hours, PRN as needed for nausea/vomiting, # 10 tablet, 0 Refills, Maintenance, 04/03/23 19:22:00 EDT, DIS Tablet, [facility] #[id number], Partial fill upon patient request if the [...] Refills, Soft Stop, 01/25/23 10:30:00 EDT, Tablet, [facility] #0... Start Date: 01/25/23 Status: [...] Team Personnel Name: Vivi Bailey NP Position: [facility] PCO Associate Professional Member Role: Lifetime Consulting Provider Address: Address: [address] [place] [address] Name: Gauri Pascual Position: [facility] RN Member Role: Primary Care Nurse Name: Lorraine Zendejas MD Position: [facility] Physician - Primary Care Member Role: PCP Address: Address: [address] [place] [address]- [place] Care Team Related Persons Name: KENDAL PHELPS Address: [address] [place] [address] Name: LENIN RELL Address: home [address] [address] Name: RUSLAN ABREU Address: [id number] Address: [address] [place] [address] [place] Name: NAY DEL ANGEL Address: home [address] [place] [address] Name: PRAVIN PARKER Address: [address] [place] [address] Name: ADITHYA AHYDEN Address: [id number] Address: home [address] [address] [place] Name: PRAVIN HAYDEN Address: [address] [place] [address]
--- OUTSIDE RECORDS SUMMARY | 2023-11-16 17:21 | XMS_ITS | Continuity of Care Document ---
Author Organization [facility] Address [address] [facility], [address]r d Floor, [address] [place] [address]- Care Team Providers Care Power Machine Operator Name Role Phone Aashish IBARRA, Lorraine Primary Care Physician Encounter [facility] [place] Date(s): 03/13/23 - 05/31/23 [facility] [address] [place], 3rd Floor, [address] [place] [id number] Attending Physician: Oc ARELLANO, Zuly Major Admitting Physician: Oc ARELLANO, Zuly Major Allergies, Adverse Reactions, Alerts Substance Reaction Severity [...] 08/15/22 15:08:00 EST, Route to Pharmacy Electronically, [facility] #[id number], Partial fill upon patient request if the prescription... Start Date: 08/15/22 Status: Ordered Advair HFA 115 mcg / 21 mcg 2 puffs, Inhalation, 2 times a day, # 1 each, 5 Refills, Maintenance, 05/03/22 16:02:00 EDT, Aerosol, [facility] #[id number], Partial fill upon patient request if the prescription is for a schedule II opioid drug., 2 puffs Inhalation 2 times a da... Start Date: 05/03/22 Stop Date: 10/30/22 Status: Ordered albuterol 0.083% inhalation solution 3 mL = 2.5 mg, Inhalation, Every 6 hours, PRN Wheezing/Shortness of Breath, # 60 each, 1 Refills, Maintenance, 11/09/22 13:41:00 EDT, Solution, [facility] #[id number], Partial fill upon patient request if the prescription is for a schedule II opi... Start Date: 11/09/22 Status: Ordered albuterol 0.083% inhalation solution 3 mL = 2.5 mg, Inhalation, Every 6 hours, PRN for wheezing, # 25 each, 0 Refills, Maintenance, 05/29/23 20:07:00 EDT, Solution, [facility] #[id number], Partial fill upon patient request if the prescription is for a schedule II opioid drug., 156,... Start Date: 05/29/23 Status: Ordered cetirizine 5 mg oral tablet = 5 mg, By Mouth, Daily, # 30 tablet, 0 Refills, Maintenance, 11/17/22 10:48:00 EDT, Tablet, [facility] #[id number], Partial fill upon patient request if the prescription is for a schedule II opioid drug., 156, cm, 11/17/22 8:44:00 EDT, Height, 8... Start Date: 11/17/22 Status: Ordered Depakote 250 mg oral enteric coated tablet 1 tablet = 250 mg, By Mouth, 2 times a day, # 60 tablet, 3 Refills, Maintenance, 02/28/23 16:39:00 EDT, [facility] #[id number], Partial fill upon patient request if the prescription is for a schedule II opioid drug., 155, cm, 02/28/23 11:38:00 ED... Start Date: 02/28/23 Status: Ordered dicyclomine 20 mg oral tablet 1 tablet = 20 mg, By Mouth, 4 times a day, 30 to 60 minutes before meals, # 28 tablet, 4 Refills, Maintenance, 04/05/23 11:18:00 EDT, Tablet, [facility] #[id number], Partial fill upon patient request if the prescription is for a schedule II opioi... Start Date: 04/05/23 Stop Date: 05/10/23 Status: Ordered ibuprofen 400 mg oral tablet 400 mg, 1, tablet, By Mouth, Every 4 hours, PRN, # 60 tablet, Refills 0, Tot. Refills 0, Maintenance, for pain, 11/17/22 10:49:00 EDT, Route to Pharmacy Electronically, [facility] #[id number], Partial fill upon patient request if the prescription... Start Date: 11/17/22 Status: Ordered lidocaine 1.8% topical film 1 patch, Topically, Daily, leave on up to 12 hours, # 30 each, 0 Refills, Maintenance, 11/17/22 10:47:00 EDT, Film, [facility] #[id number], Partial fill upon patient request if the prescription is for a schedule II opioid drug., 1 patch Topically... Start Date: 11/17/22 Status: Ordered metroNIDAZOLE 0.75% topical gel 1 application, Topically, Daily at bedtime, use vaginal applicator to insert vaginally nightly for 5 nights, # 45 Gm, 0 Refills, Maintenance, 02/14/23 16:28:00 EDT, Gel, [facility] #[id number], Partial fill upon patient request if the prescriptio... Start Date: 02/14/23 Stop Date: 02/19/23 Status: Ordered metroNIDAZOLE 500 mg oral tablet 1 tablet = 500 mg, By Mouth, Every 12 hours, # 28 tablet, 0 Refills, Maintenance, 01/25/23 16:14:00EDT, Tablet, [facility] #[id number], Partial fill upon patient request if the prescription is for a schedule II opioid drug., 156, cm, 01/25/23 15... Start Date: 01/25/23 Stop Date: 02/08/23 Status: Ordered MiraLax oral powder for reconstitution = 17 Gm, By Mouth, Daily, dissolve in water before taking, # 527 Gm, 0 Refills, Maintenance, 11/17/22 10:47:00 EDT, REC Powder, [facility] #[id number], Partial fill upon patient request if the prescription is for a schedule II opioid drug., 17 Gm... Start Date: 11/17/22 Status: Ordered morphine 15 mg oral tablet, immediate release 1 tablet = 15 mg, By Mouth, Every 4 hours, PRN as needed for pain, # 10 tablet, 0 Refills, Maintenance, 04/03/23 19:18:00 EDT, Tablet, [facility] #[id number], Partial fill upon patient request if the prescription is for a schedule II opioid drug.... Start Date: 04/03/23 Status: Ordered Mylanta Coat & Cool 1200 mg-270 mg-80 mg/10 mL oral suspension 10 mL, By Mouth, 2 times a day, PRN as needed for indigestion, for 3 days, # 355 mL, 0 Refills, Acute 06/01/23 20:06:00 EDT, 05/29/23 20:06:00 EDT, Suspension, [facility] #[id number], Partial fill upon patient request if the prescription is for a... Start Date: 05/29/23 Stop Date: 06/01/23 Status: Ordered ondansetron 4 mg oral tablet 1 tablet = 4 mg, By Mouth, Every 8 hours, PRN Nausea & Vomiting, # 10 tablet, 0 Refills, Acute 06/01/23 20:30:00 EDT, 05/29/23 20:06:00 EDT, Tablet, [facility] #[id number], Partial fill uponpatient request if the prescription is for a schedule I... Start Date: 05/29/23 Stop Date: 06/01/23 Status: Ordered ondansetron 4 mg oral tablet, disintegrating 1 tablet = 4 mg, By Mouth, Every 8 hours, PRN as needed for nausea/vomiting, # 10 tablet, 0 Refills, Maintenance, 04/03/23 19:22:00 EDT, DIS Tablet, [facility] #[id number], Partial fill upon patient request if the prescription is for a schedule I... Start Date: 04/03/23 Status: Ordered predniSONE 20 mg oral tablet 1 tablet = 20 mg, By Mouth, 2 times a day, # 10 tablet, 0 Refills, Soft Stop, 05/29/23 20:12:00 EDT, Tablet, [facility] #[id number], Partial fill upon patient request if the [...] Refills, Soft Stop, 01/25/23 10:30:00 EDT, Tablet, [facility] #0... Start Date: 01/25/23 Status: Ordered Problem [...] Team Personnel Name: Vivi Bailey NP Position: [facility] PCO Associate Professional Member Role: Lifetime Consulting Provider Address: Address: [address] [place] [address]- Name: Gauri Pascual Position: [facility] RN Member Role: Primary Care Nurse Name: Lorraine Zendejas MD Position: [facility] Physician - Primary Care Member Role: PCP Address: Address: [address] [place] [address]- Care Team Related Persons Name: KENDAL PHELPS Address: home [address] [place] [address] Name: RELL PHELPS Address: [address] [address] Name: RUSLAN ABREU Address: [address] Address: home [address] [place] [address] [place] Name: NAY DEL ANGEL Address: home [address] [place] [address] Name: PRAVIN PARKER Address: home [address] [place] [address] Name: ADITHYA HAYDEN Address: [id number] Address: [address] [address] [place] Name: PRAVIN HAYDEN Address: [address] [place] [address]
--- OUTSIDE RECORDS SUMMARY | 2023-11-16 17:21 | XMS_ITS | Continuity of Care Document ---
Author Organization [facility] Address [address] [facility], [address] d Floor, [address] [place] [address]- Care Team Providers Care Peoplesoft Hcm Developer Name Role Phone Lorraine Zendejas MD Primary Care Physician Encounter [facility] [place] Date(s): 10/23/22 - 11/25/22 [facility] [address], 3[address], [address] [place] [id number] Attending Physician: Barrett Lindsay MD Admitting Physician: Barrett Lindsay MD Referring Physician: Lorraine Zendejas MD Allergies, [...] 08/15/22 15:08:00 EST, Route to Pharmacy Electronically, [facility] #[id number], Partial fill upon patient request if the prescription... Start Date: 08/15/22 Status: Ordered Advair HFA 115 mcg / 21 mcg 2 puffs, Inhalation, 2 times a day, # 1 each, 5 Refills, Maintenance, 05/03/22 16:02:00 EDT, Aerosol, [facility] #[id number], Partial fill upon patient request if the prescription is for a schedule II opioid drug., 2 puffs Inhalation 2 times a da... Start Date: 05/03/22 Stop Date: 10/30/22 Status: Ordered albuterol 0.083% inhalation solution 3 mL = 2.5 mg, Inhalation, Every 6 hours, PRN Wheezing/Shortness of Breath, # 60 each, 1 Refills, Maintenance, 11/09/22 13:41:00 EDT, Solution, [facility] #[id number], Partial fill upon patient request if the prescription is for a schedule II opi... Start Date: 11/09/22 Status: Ordered albuterol CFC free 90 mcg/inh inhalation aerosol 2, puffs, Inhalation, Every 6 hours, PRN, for 30 days, # 8.5 Gm, Refills 11, Tot. Refills 11, Hard Stop 04/28/23 11:45:00 EDT, 05/03/22 11:45:00 EDT, Aerosol, Route to Pharmacy Electronically, [id number], [facility]... Start Date: 05/03/22 Stop Date: 04/28/23 Status: Ordered benzonatate 100 mg oral capsule 1 capsule = 100 mg, By Mouth, 3 times a day, PRN as needed for cough, for 14 days, # 42 capsule, 0 Refills, Acute 11/28/22 16:18:00 EDT, 11/14/22 16:18:00 EDT, Capsule, [facility] #[id number], Partial fill upon patient request if the prescription... Start Date: 11/14/22 Stop Date: 11/28/22 Status: Ordered cetirizine 5 mg oral tablet = 5 mg, By Mouth, Daily, # 30 tablet, 0 Refills, Maintenance, 11/17/22 10:48:00 EDT, Tablet, [facility] #[id number], Partial fill upon patient request if the prescription is for a schedule II opioid drug., 156, cm, 11/17/22 8:44:00 EDT, Height, 8... Start Date: 11/17/22 Status: Ordered ibuprofen 400 mg oral tablet 400 mg, 1, tablet, By Mouth, Every 4 hours, PRN, # 60 tablet, Refills 0, Tot. Refills 0, Maintenance, for pain, 11/17/22 10:49:00 EDT, Route to Pharmacy Electronically, [facility] #[id number], Partial fill upon patient request if the prescription... Start Date: 11/17/22 Status: Ordered lidocaine 1.8% topical film 1 patch, Topically, Daily, leave on up to 12 hours, # 30 each, 0 Refills, Maintenance, 11/17/22 10:47:00 EDT, Film, [facility] #[id number], Partial fill upon patient request if the prescription is for a schedule II opioid drug., 1 patch Topically... Start Date: 11/17/22 Status: Ordered MiraLax oral powder for reconstitution = 17 Gm, By Mouth, Daily, dissolve in water before taking, # 527 Gm, 0 Refills, Maintenance, 11/17/22 10:47:00 EDT, REC Powder, [facility] #[id number], Partial fill upon patient request if the [...] 2 Refills, Maintenance, 11/07/22 17:30:00 EDT, Tablet, [facility] #[id number], Partial fill upon patient request if the [...] Care Team Personnel Name: Gauri Pascual Position: [facility] RN Member Role: Primary Care Nurse Name: Lorraine Zendejas MD Position: [facility] Primary Care Physician Member Role: PCP Address: Address: [address] [place] [address]- Care Team Related Persons Name: RELL PHELPS Address: [address] [address] Name: RUSLAN ABREU Address: [address] Address: [address] [address] [place] Name: NAY DEL ANGEL Address: [address] [place] [address] Name: PRAVIN PARKER Address: [address] [place] [address] Name: ADITHYA HAYDEN Address: [address] Address: [address] [address] [place] Name: PRAVIN HAYDEN Address: home [address] [place] [address]
--- OUTSIDE RECORDS SUMMARY | 2023-11-16 17:21 | XMS_ITS | Continuity of Care Document ---
Author Organization [facility] Address [address] [place] [address]- Care Team Providers Care Cigarette Seller Name Role Phone Lorraine Zendejas MD Primary Care Physician Encounter [facility] Date(s): 09/11/23 - 10/11/23 [facility] [address] [place] [address]- Attending Physician: Roque Villela Admitting Physician: Roque Villela Referring Physician: Roque Villela Allergies, Adverse Reactions, Alerts Substance Reaction Severity [...] 08/15/22 15:08:00 EST, Route to Pharmacy Electronically, [facility] #[id number], Partial fill upon patient request if the prescription... Start Date: 08/15/22 Status: Ordered Advair HFA 115 mcg / 21 mcg 2 puffs, Inhalation, 2 times a day, # 1 each, 5 Refills, Maintenance, 05/03/22 16:02:00 EDT, Aerosol, [facility] #[id number], Partial fill upon patient request if the prescription is for a schedule II opioid drug., 2 puffs Inhalation 2 times a da... Start Date: 05/03/22 Stop Date: 10/30/22 Status: Ordered albuterol 0.083% inhalation solution 3 mL = 2.5 mg, Inhalation, Every 6 hours, PRN for wheezing, # 25 each, 0 Refills, Maintenance, 05/29/23 20:07:00 EDT, Solution, [facility] #[id number], Partial fill upon patient request if the prescription is for a schedule II opioid drug., 156,... Start Date: 05/29/23 Status: Ordered cetirizine 5 mg oral tablet = 5 mg, By Mouth, Daily, # 30 tablet, 0 Refills, Maintenance, 11/17/22 10:48:00 EDT, Tablet, [facility] #[id number], Partial fill upon patient request if the prescription is for a schedule II opioid drug., 156, cm, 11/17/22 8:44:00 EDT, Height, 8... Start Date: 11/17/22 Status: Ordered Depakote 250 mg oral enteric coated tablet 1 tablet = 250 mg, By Mouth, 2 times a day, # 60 tablet, 3 Refills, Maintenance, 02/28/23 16:39:00 EDT, [facility] #[id number], Partial fill upon patient request if the prescription is for a schedule II opioid drug., 155, cm, 02/28/23 11:38:00 ED... Start Date: 02/28/23 Status: Ordered dicyclomine 20 mg oral tablet 1 tablet = 20 mg, By Mouth, 4 times a day, 30 to 60 minutes before meals, # 28 tablet, 4 Refills, Maintenance, 04/05/23 11:18:00 EDT, Tablet, [facility] #[id number], Partial fill upon patient request if the prescription is for a schedule II opioi... Start Date: 04/05/23 Stop Date: 05/10/23 Status: Ordered ibuprofen 400 mg oral tablet 400 mg, 1, tablet, By Mouth, Every 4 hours, PRN, # 60 tablet, Refills 0, Tot. Refills 0, Maintenance, for pain, 11/17/22 10:49:00 EDT, Route to Pharmacy Electronically, [facility] #[id number], Partial fill upon patient request if the prescription... Start Date: 11/17/22 Status: Ordered MiraLax oral powder for reconstitution = 17 Gm, By Mouth, Daily, dissolve in water before taking, # 527 Gm, 0 Refills, Maintenance, 11/17/22 10:47:00 EDT, REC Powder, [facility] #[id number], Partial fill upon patient request if the prescription is for a schedule II opioid drug., 17 Gm... Start Date: 11/17/22 Status: Ordered Nexplanon 68 mg subcutaneous implant 1 each = 68 mg, Subcutaneous Infusion, Once, Left arm, placed 07/23/2023 Lot #[id number], # 1 each, 0 Refills, Maintenance, 07/23/23 16:11:00 EST, Partial fill upon patient request if the prescription is for a schedule II opioid drug. Start Date: 07/23/23 Status: Ordered ondansetron 4 mg oral tablet, disintegrating 1 tablet = 4 mg, By Mouth, Every 8 hours, PRN Nausea & Vomiting, # 10 tablet, 0 Refills, Maintenance, 09/15/23 11:34:00 EST, Tablet, [facility] #[id number], Partial fill upon patient requestif the prescription [...] Refills, Soft Stop, 01/25/23 10:30:00 EDT, Tablet, [facility] #0... Start Date: 01/25/23 Status: Ordered [...] Member Role: Lifetime Consulting Provider Address: Address: [address] [place] [address]- Name: Gauri Pascual Position: [facility] RN Member Role: Primary Care Nurse Name: Lorraine Zendejas MD Position: [facility] Physician - Primary Care Member Role: PCP Address: Address: [address] [place] [address]- Care Team Related Persons Name: KENDAL PHELPS Address: [address] [place] [address] Name: RELL PHELPS Address: [address] [address] Name: RUSLAN ABREU Address: [address] Address: [address] [place] [address] [place] Name: NAY DEL ANGEL Address: [address] [place] [address] Name: PRAVIN PARKER Address: [address] [place] [address] Name: ADITHYA HAYDEN Address: [address] Address: [address] [place] [address] [place] Name: PRAVIN HAYDEN Address: [address] [place] [address]
--- OUTSIDE RECORDS SUMMARY | 2023-11-16 17:22 | XMS_ITS | Continuity of Care Document ---
Author Organization [facility] Address [address] [place] [address]- Care Team Providers Care Patch Worker Name Role Phone Aashish IBARRA, Lorraine Primary Care Physician Encounter [facility] Date(s): 08/16/21 - 09/30/[address] [address]- Attending Physician: Not on Staff, Attending MD Referring Physician: Not on Staff, Referring [...] Virus Vaccine 03/30/98 Given Tet/Diphth/Acel, Pertussis (oldterm) 4/20/09 Give n Poliovirus Vaccine, Inactivated 04/05/01 Given [...] 5 Refills, Maintenance, 11/16/20 15:34:00 EDT, Aerosol, [facility] #[id number], Partial fill upon patient request if the prescription is for a schedule II opioid drug., 2 puffs Inhalation 2 times a d... Start Date: 11/16/20 Status: Ordered aspirin 81 mg oral delayed release tablet 2 tablet = 162 mg, By Mouth, Daily, start at 12 weeks, 09/11/21, # 90 tablet, 0 Refills, Maintenance,08/16/21 13:37:00 EST, CR Tablet, [facility] #[id number], Partial fill upon patient request ifthe prescription is for a schedule II opioid drug.,... Start Date: 08/16/21 Status: Ordered Lidoderm 5% film 1 patch, Topically, Daily, (remove patch(s) after 12 hours), # 30 patch, 0 Refills, Maintenance, 10/12/20 11:07:00 EST, [facility] #[id number], Partial fill upon patient request if the prescription is for a schedule II opioid drug., 1 patch Topic... Start Date: 10/12/20 Status: Ordered MiraLax oral powder for reconstitution = 17 Gm, By Mouth, Daily, dissolve in water before taking, # 527 Gm, 0 Refills, Maintenance, 08/16/21 13:56:00 EST, REC Powder, [facility] #[id number], Partial fill upon patient request if the prescription is for a schedule II opioid drug., 17 Gm... Start Date: 08/16/21 Status: Ordered Multivitamins with Folic Acid 1 mg oral tablet 1 tablet, By Mouth, Daily, # 90 tablet, 3 Refills, Maintenance, 09/16/21 15:48:00 EST, Tablet, [facility] #[id number], Partial fill upon patient request if the prescription is for a schedule II opioid drug., 1 tablet By Mouth Daily, 157, cm, 0... Start Date: 09/16/21 Status: Ordered Multivitamins with Vitamin B Complex, Vitamin C, Minerals and L- Methylfolate oral capsule 1 capsule, By Mouth, Daily, # 30 capsule, 11 Refills, Maintenance, 08/05/21 17:50:00 EST, Capsule, [facility] #[id number], Partial fill upon patient request if the prescription is for a scheduleII opioid drug., 1 capsule By Mouth Daily, 157, cm,... Start Date: 08/05/21 Status: Ordered ProAir HFA 90 mcg/inh inhalation aerosol with adapter 2, puffs, Inhalation, Every 4 hours, PRN, # 8.5 Gm, Refills 5, Tot. Refills 5, Maintenance, 01/06/21 8:08:00 EDT, Aerosol, Route to Pharmacy Electronically, [id number], [facility] #[id number], 157, cm, 11/17/20 9:48:00 E... Start Date: [...]
--- OUTSIDE RECORDS SUMMARY | 2023-11-16 17:22 | XMS_ITS | Continuity of Care Document ---
Author Organization [facility] Address [address] [place] [address]- Care Team Providers Care Boiling House Oiler Name Role Phone Lorraine Zendejas MD Primary Care Physician Encounter [facility] Date(s): 09/03/20 - 10/03/20 [facility] [address] [address] Attending Physician: Roque Villela Admitting Physician: AdmRoque vasquze Referring Physician: AdmtrRoque Allergies, Adverse Reactions, Alerts [...] 14:46:00 EST, Powder, Route to Pharmacy Electronically, [id number]... Start Date: 09/27/20 Status: Ordered cyclobenzaprine 10 mg oral tablet 1, tablet, By Mouth, 3 times a day, PRN, # 45 tablet, Refills 0, Tot. Refills 0, Acute, NEEDED FOR SPASM, 08/25/20 9:53:00 EST, Route to Pharmacy Electronically, [facility] #[id number], 157, cm, 06/08/20 15:12:00 EST, Height, 84.5, kg, ... Start Date: 08/25/20 Status: Ordered ProAir HFA 90 mcg/inh inhalation aerosol with adapter 2, puffs, Inhalation, Every 4 hours, PRN, # 8.5 Gm, Refills 5, Tot. Refills 5, Maintenance, 08/04/20 12:45:00 EST, Aerosol, Route to Pharmacy Electronically, [id number], [facility] #[id number], 157, cm, 06/08/20 15:12:00... Start Date: 08/04/20 [...] # 18 tablet, 1 Refills, Soft Stop, [facility] #[id number], 157, cm, 07/31/19 8:49:00 EST, Height, 84.5, kg, 04/29/19 4:40:00 EDT, D... Start Date: 10/07/19 Status: Ordered Xulane 150 mcg-35 mcg/24 hr transdermal film, extended release 1 patch, Topically, Every week, # 3 each, 11 Refills, Maintenance, 05/26/20 10:54:00 EDT, [facility] #[id number], 1 patch Topically Every week,x7 days, 157, [...]
--- OUTSIDE RECORDS SUMMARY | 2023-11-16 17:22 | XMS_ITS | Continuity of Care Document ---
Author Organization [facility] Address [address] [place] [address]- Care Team Providers Care Art Gallery Director Name Role Phone Aashish IBARRA, Lorraine Primary Care Physician [facility]counter [facility] Date(s): 11/18/22 - 12/18/[address] [address]- Allergies, Adverse Reactions, Alerts Substance Reaction Severity [...] 08/15/22 15:08:00 EST, Route to Pharmacy Electronically, [facility] #[id number], Partial fill upon patient request if the prescription... Start Date: 08/15/22 Status: Ordered Advair HFA 115 mcg / 21 mcg 2 puffs, Inhalation, 2 times a day, # 1 each, 5 Refills, Maintenance, 05/03/22 16:02:00 EDT, Aerosol, [facility] #[id number], Partial fill upon patient request if the prescription is for a schedule II opioid drug., 2 puffs Inhalation 2 times a da... Start Date: 05/03/22 Stop Date: 10/30/22 Status: Ordered albuterol 0.083% inhalation solution 3 mL = 2.5 mg, Inhalation, Every 6 hours, PRN Wheezing/Shortness of Breath, # 60 each, 1 Refills, Maintenance, 11/09/22 13:41:00 EDT, Solution, [facility] #[id number], Partial fill upon patient request if the prescription is for a schedule II opi... Start Date: 11/09/22 Status: Ordered albuterol CFC free 90 mcg/inh inhalation aerosol 2, puffs, Inhalation, Every 6 hours, PRN, for 30 days, # 8.5 Gm, Refills 11, Tot. Refills 11, Hard Stop 04/28/23 11:45:00 EDT, 05/03/22 11:45:00 EDT, Aerosol, Route to Pharmacy Electronically, [id number], [facility]... Start Date: 05/03/22 Stop Date: 04/28/23 Status: Ordered cetirizine 5 mg oral tablet = 5 mg, By Mouth, Daily, # 30 tablet, 0 Refills, Maintenance, 11/17/22 10:48:00 EDT, Tablet, [facility] #[id number], Partial fill upon patient request if the prescription is for a schedule II opioid drug., 156, cm, 11/17/22 8:44:00 EDT, Height, 8... Start Date: 11/17/22 Status: Ordered ibuprofen 400 mg oral tablet 400 mg, 1, tablet, By Mouth, Every 4 hours, PRN, # 60 tablet, Refills 0, Tot. Refills 0, Maintenance, for pain, 11/17/22 10:49:00 EDT, Route to Pharmacy Electronically, [facility] #[id number], Partial fill upon patient request if the prescription... Start Date: 11/17/22 Status: Ordered lidocaine 1.8% topical film 1 patch, Topically, Daily, leave on up to 12 hours, # 30 each, 0 Refills, Maintenance, 11/17/22 10:47:00 EDT, Film, [facility] #[id number], Partial fill upon patient request if the prescription is for a schedule II opioid drug., 1 patch Topically... Start Date: 11/17/22 Status: Ordered MiraLax oral powder for reconstitution = 17 Gm, By Mouth, Daily, dissolve in water before taking, # 527 Gm, 0 Refills, Maintenance, 11/17/22 10:47:00 EDT, REC Powder, [facility] #[id number], Partial fill upon patient request if the [...] 2 Refills, Maintenance, 11/07/22 17:30:00 EDT, Tablet, [facility] #[id number], Partial fill upon patient request if the [...] Personnel Name: Gauri Pascual Position: [facility] RN Member Role: Primary Care Nurse Name: Lorraine Zendejas MD Position: [facility] Primary Care Physician Member Role: PCP Address: Address: [address] [place] [address]- Care Team Related Persons Name: LENINRELL Address: home [address] [address] Name: RUSLAN ABREU Address: [address] Address: home [address] [address] Name: NAY DEL ANGEL Address: home [address] [place] [address] Name: PRAVIN PARKER Address: [address] [place] [address] Name: ADITHYA HAYDEN Address: [id number] Address: home [address] [address] [place] Name: PRAVIN HAYDEN Address: home [address] [place] [address]
--- OUTSIDE RECORDS SUMMARY | 2023-11-16 17:22 | XMS_ITS | Continuity of Care Document ---
Author Organization [facility] Address [address] [place] [address]- Care Team Providers Care Environmental Health Safety Manager Name Role Phone Aashish IBARRA, Lorraine Primary Care Physician [phone] Encounter [facility] Date(s): 05/01/22 - 06/01/[address] [address]- Attending Physician: Not on Staff, Attending MD [...] 0 Refills, Maintenance, 05/17/22 15:05:00 EDT, Capsule, [facility] #[id number], Partial fill upon patient request if the prescription is for a schedule II opioid . Start Date: 05/17/22 Status: Ordered Advair HFA 115 mcg / 21 mcg 2 puffs, Inhalation, 2 times a day, # 1 each, 5 Refills, Maintenance, 05/03/22 16:02:00 EDT, Aerosol, [facility] #[id number], Partial fill upon patient request if the prescription is for a schedule II opioid drug., 2 puffs Inhalation 2 times a da... Start Date: 05/03/22 Stop Date: 10/30/22 Status: Ordered albuterol CFC free 90 mcg/inh inhalation aerosol 2, puffs, Inhalation, Every 6 hours, PRN, # 8.5 Gm, Refills 11, Tot. Refills 11, Maintenance, 05/03/22 11:45:00 EDT, Aerosol, Route to Pharmacy Electronically, [id number], [facility] #[id number], dispense brand preferred... Start Date: 05/03/22 Stop Date: 04/28/23 Status: Ordered clotrimazole 1% topical cream 1 application, Topically, 2 times a day, # 12 Gm, 0 Refills, Maintenance, 04/11/22 4:42:00 EDT, Cream, [facility] #[id number], Partial fill upon patient request if the prescription is for a schedule II opioid drug., 1 application Topically 2 time... Start Date: 04/11/22 Status: Ordered Colace sodium 100 mg oral capsule 100 mg, 1, capsule, By Mouth, 2 times a day, PRN, # 20 capsule, Refills 0, Tot. Refills 0, Maintenance, for constipation, 03/18/22 15:18:00 EDT, Route to Pharmacy Electronically, [facility]#[id number], Partial fill upon patient request if the pr... Start Date: 03/18/22 Status: Ordered Dilaudid 2 mg oral tablet 1 tablet = 2 mg, By Mouth, Every 4 hours, # 10 tablet, 0 Refills, Maintenance, 03/18/22 18:17:00 EDT, Tablet, [facility] #[id number], Partial fill upon patient request if the prescription is fora schedule II opioid drug., 154, cm, 03/18/22 11:26... Start Date: 03/18/22 Status: Ordered ferrous sulfate 325 mg oral tablet 1 tablet = 325 mg, By Mouth, Daily, # 30 tablet, 3 Refills, Maintenance, 01/05/22 12:46:00 EDT, Tablet, [facility] #[id number], Partial fill upon patient request if the prescription is for a schedule II opioid drug., 154, cm, 01/04/22 13:56:00 ED... Start Date: 01/05/22 Status: Ordered ibuprofen 600 mg oral tablet 600 mg, 1, tablet, By Mouth, Every 6 hours, # 50 tablet, Refills 0, Tot. Refills 0, Maintenance, 03/18/22 15:18:00 EDT, Route to Pharmacy Electronically, [facility] #[id number], Partial fill upon patient request if the prescription is for a sched... Start Date: 03/18/22 Status: Ordered magnesium oxide 400 mg oral tablet 1 tablet = 400 mg, By Mouth, Daily, for 30 days, to treat and prevent headaches, # 30 tablet, 3 Refills, Acute 06/22/22 19:25:00 EST, 02/22/22 19:25:00 EDT, Tablet, [facility] #[id number], Partial fill upon patient request if the prescription is... Start Date: 02/22/22 Stop Date: 06/22/22 Status: Ordered MiraLax oral powder for reconstitution = 17 Gm, By Mouth, Daily, dissolve in water before taking, # 527 Gm, 0 Refills, Maintenance, 08/16/21 13:56:00 EST, REC Powder, [facility] #[id number], Partial fill upon patient request if the prescription is for a schedule II opioid drug., 17 Gm... Start Date: 08/16/21 Status: Ordered Multivitamins with Folic Acid 1 mg oral tablet 1 tablet, By Mouth, Daily, # 90 tablet, 3 Refills, Maintenance, 05/03/22 12:05:00 EDT, Tablet, [facility] #[id number], Partial fill upon patient request if the prescription is for a schedule II opioid drug., 1 tablet By Mouth Daily,x90 days, 157,... Start Date: 05/03/22 Stop Date: 04/28/23 Status: Ordered simethicone 125 mg oral tablet, chewable 1 tablet = 125 mg, Chew, 4 times a day, # 48 tablet, 0 Refills, Maintenance, 03/18/22 15:18:00 EDT,Chew Tablet, [facility] #[id number], Partial fill upon patient request if the [...] 0 Refills, Maintenance, 03/18/22 15:18:00 EDT, Cream, [facility] #[id number], Partial fill upon patient request if the [...] Personnel Name: Lorraine Zendejas MD Address: Address: [address] [place] [address]
--- OUTSIDE RECORDS SUMMARY | 2023-11-16 17:22 | XMS_ITS | Continuity of Care Document ---
Author Organization [facility] Address [address] [place] [address]- Care Team Providers Care Finished Goods Planner Name Role Phone Aashish IBARRA, Lorraine Primary Care Physician [facility] Date(s): 01/04/22 - 04/22/22 [facility] [address] [address]- Attending Physician: Not on Staff, Attending MD [...] 0 Refills, Maintenance, 03/18/22 15:18:00 EDT, [facility]ule, [id number], Partial fill upon patient request if the prescription is for a schedule II opioid . Start Date: 03/18/22 Status: Ordered Advair HFA 115 mcg / 21 mcg 2 puffs, Inhalation, 2 times a day, # 60 each, 5 Refills, Maintenance, 11/25/21 15:15:00 EDT, Aerosol, [facility] #[id number], Partial fill upon patient request if the prescription is for a schedule II opioid drug., 2 puffs Inhalation 2 times a d... Start Date: 11/25/21 Status: Ordered Aspirin Low Dose 81 mg oral delayed release tablet 2 tablet, By Mouth, Daily, START AT 12 WEEKS, 09/11/21, # 90 tablet, 3 Refills, [facility] #[id number], 154, cm, 01/04/22 13:56:00 EDT, Height, 86.5, kg, 10/29/21 21:50:00 EDT, Dry Weight Start Date: 01/05/22 Status: Ordered clotrimazole 1% topical cream 1 application, Topically, 2 times a day, # 12 Gm, 0 Refills, Maintenance, 04/11/22 4:42:00 EDT, Cream, [facility] #[id number], Partial fill upon patient request if the prescription is for a schedule II opioid drug., 1 application Topically 2 time... Start Date: 04/11/22 Status: Ordered Colace sodium 100 mg oral capsule 100 mg, 1, capsule, By Mouth, 2 times a day, PRN, # 20 capsule, Refills 0, Tot. Refills 0, Maintenance, for constipation, 03/18/22 15:18:00 EDT, Route to Pharmacy Electronically, [facility]#[id number], Partial fill upon patient request if the pr... Start Date: 03/18/22 Status: Ordered Dilaudid 2 mg oral tablet 1 tablet = 2 mg, By Mouth, Every 4 hours, # 10 tablet, 0 Refills, Maintenance, 03/18/22 18:17:00 EDT, Tablet, [facility] #[id number], Partial fill upon patient request if the prescription is fora schedule II opioid drug., 154, cm, 03/18/22 11:26... Start Date: 03/18/22 Status: Ordered ferrous sulfate 325 mg oral tablet 1 tablet = 325 mg, By Mouth, Daily, # 30 tablet, 3 Refills, Maintenance, 01/05/22 12:46:00 EDT, Tablet, [facility] #[id number], Partial fill upon patient request if the prescription is for a schedule II opioid drug., 154, cm, 01/04/22 13:56:00 ED... Start Date: 01/05/22 Status: Ordered ibuprofen 600 mg oral tablet 600 mg, 1, tablet, By Mouth, Every 6 hours, # 50 tablet, Refills 0, Tot. Refills 0, Maintenance, 03/18/22 15:18:00 EDT, Route to Pharmacy Electronically, [facility] #[id number], Partial fill upon patient request if the prescription is for a sched... Start Date: 03/18/22 Status: Ordered magnesium oxide 400 mg oral tablet 1 tablet = 400 mg, By Mouth, Daily, for 30 days, to treat and prevent headaches, # 30 tablet, 3 Refills, Acute 06/22/22 19:25:00 EST, 02/22/22 19:25:00 EDT, Tablet, [facility] #[id number], Partial fill upon patient request if the prescription is... Start Date: 02/22/22 Stop Date: 06/22/22 Status: Ordered MiraLax oral powder for reconstitution = 17 Gm, By Mouth, Daily, dissolve in water before taking, # 527 Gm, 0 Refills, Maintenance, 08/16/21 13:56:00 EST, REC Powder, [facility] #[id number], Partial fill upon patient request if the prescription is for a schedule II opioid drug., 17 Gm... Start Date: 08/16/21 Status: Ordered Multivitamins with Folic Acid 1 mg oral tablet 1 tablet, By Mouth, Daily, # 90 tablet, 3 Refills, Maintenance, 09/16/21 15:48:00 EST, Tablet, [facility] #[id number], Partial fill upon patient request if the prescription is for a schedule II opioid drug., 1 tablet By Mouth Daily, 157, cm, 0... Start Date: 09/16/21 Status: Ordered ProAir HFA 90 mcg/inh inhalation aerosol with adapter 2, puffs, Inhalation, Every 4 hours, PRN, # 8.5 Gm, Refills 2, Tot. Refills 2, Maintenance, 11/25/21 15:15:00 EDT, Aerosol, Route to Pharmacy Electronically, [id number], [facility] #[id number], 154, cm, 11/25/21 14:53:00... Start Date: 11/25/21 Status: Ordered simethicone 125 mg oral tablet, chewable 1 tablet = 125 mg, Chew, 4 times a day, # 48 tablet, 0 Refills, Maintenance, 03/18/22 15:18:00 EDT,Chew Tablet, [facility] #[id number], Partial fill upon patient request if the [...] 0 Refills, Maintenance, 03/18/22 15:18:00 EDT, Cream, [facility] #[id number], Partial fill upon patient request if the [...] Team Personnel Name: Lorraine Zendejas MD Address: [address] [place] [address]
--- OUTSIDE RECORDS SUMMARY | 2023-11-16 17:22 | XMS_ITS | Continuity of Care Document ---
Author Organization [facility] Address [address] [place] [address]- Care Team Providers Care Gravel Roofer Name Role Phone Aashish IBARRA, Lorraine Primary Care Physician Encounter [facility] [place] Date(s): 01/03/22 - 02/02/[address] [address]- Attending Physician: Roque Villela Admitting Physician: AdmtrRoque [...] each, 5 Refills, Maintenance, 11/25/21 15:15:[id number], Partial fill upon patient request if the prescription is for a schedule II opioid drug., 2 puffs Inhalation 2 times a d... Start Date: 11/25/21 Status: Ordered Aspirin Low Dose 81 mg oral delayed release tablet 2 tablet, By Mouth, Daily, START AT 12 WEEKS, 09/11/21, # 90 tablet, 3 Refills, [facility] #[id number], 154, cm, 01/04/22 13:56:00 EDT, Height, 86.5, kg, 10/29/21 21:50:00 EDT, Dry Weight Start Date: 01/05/22 Status: Ordered Benadryl 25 mg oral capsule 2 capsule = 50 mg, By Mouth, Daily at bedtime, PRN Pain , Moderate, # 100 capsule, 0 Refills, Maintenance, 11/08/21 15:02:00 EDT, Capsule, [facility] #[id number], Partial fill upon patient request if the prescription is for a schedule II opioid d... Start Date: 11/08/21 Status: Ordered ferrous sulfate 325 mg oral tablet 1 tablet = 325 mg, By Mouth, Daily, # 30 tablet, 3 Refills, Maintenance, 01/05/22 12:46:00 EDT, Tablet, [facility] #[id number], Partial fill upon patient request if the prescription is for a schedule II opioid drug., 154, cm, 01/04/22 13:56:00 ED... Start Date: 01/05/22 Status: Ordered Lidoderm 5% film 1 patch, Topically, Daily, (remove patch(s) after 12 hours), # 30 patch, 5 Refills, Maintenance, 11/25/21 15:09:00 EDT, [facility] #[id number], Partial fill upon patient request if the prescription is for a schedule II opioid drug., 1 patch Topic... Start Date: 11/25/21 Status: Ordered MiraLax oral powder for reconstitution = 17 Gm, By Mouth, Daily, dissolve in water before taking, # 527 Gm, 0 Refills, Maintenance, 08/16/21 13:56:00 EST, REC Powder, [facility] #[id number], Partial fill upon patient request if the prescription is for a schedule II opioid drug., 17 Gm... Start Date: 08/16/21 Status: Ordered Multivitamins with Folic Acid 1 mg oral tablet 1 tablet, By Mouth, Daily, # 90 tablet, 3 Refills, Maintenance, 09/16/21 15:48:00 EST, Tablet, [facility] #[id number], Partial fill upon patient request if the prescription is for a schedule II opioid drug., 1 tablet By Mouth Daily, 157, cm, 020... Start Date: 09/16/21 Status: Ordered ProAir HFA 90 mcg/inh inhalation aerosol with adapter 2, puffs, Inhalation, Every 4 hours, PRN, # 8.5 Gm, Refills 2, Tot. Refills 2, Maintenance, 11/25/21 15:15:00 EDT, Aerosol, Route to Pharmacy Electronically, [id number], [facility] #[id number], 154, cm, 11/25/21 14:53:00... Start Date: 11/25/21 [...] 1 Refills, Maintenance, 01/08/22 14:18:00 EDT, Capsule, [facility] #[id number], Partial fill upon patient request if the [...]
--- OUTSIDE RECORDS SUMMARY | 2023-11-16 17:22 | XMS_ITS | Continuity of Care Document ---
Author Organization [facility] Address [address] [facility], [address] d Floor, [address] [place] [address]- Care Team Providers Care Anesthesiology Fellow Name Role Phone Lorraine Zendejas MD Primary Care Physician Encounter [facility] [place] Date(s): 10/02/19 - 11/16/19 [facility] [address] [place], [address], [address] [place] [address]- [facility] Attending Physician: Dena Hylton MD Admitting Physician: [...] 5 Refills, Maintenance, 11/03/19 12:31:00 EDT, Aerosol, [facility] #[id number], 157, cm, 07/31/19 8:49:00 EST, Height, 84.5, [...] Refills, Maintenance, 11/03/19 12:31:00 EDT, Chew Tablet, [facility] #[id number], 1 tablet Chew Daily,x90 days, 157, cm, [...] 12:31:00 EDT, Aerosol, Route to Pharmacy Electronically, [id number], [facility] #[id number], 157, cm, 07/31/19 8:49:00... Start Date: 11/03/19 Status: Ordered riboflavin 400 mg oral capsule 1 capsule = 400 mg, By Mouth, Daily, # 30 capsule, 3 Refills, Maintenance, 11/03/19 11:58:00 EDT, [facility] #[id number], 157, cm, 07/31/19 8:49:00 EST, Height, 84.5, [...] # 18 tablet, 1 Refills, Soft Stop, [facility] #[id number], 157, cm, 07/31/19 8:49:00 EST, Height, 84.5, [...]
--- OUTSIDE RECORDS SUMMARY | 2023-11-16 17:22 | XMS_ITS | Continuity of Care Document ---
Author Organization [facility] Address Unknown Care Team Providers Care Neck Fitter Name Role Phone Aashish IBARRA, Lorraine Primary Care Physician Encounter [facility] [place] Date(s): 08/02/21 - 09/01/21 [facility] Attending Physician: Roque Villela Admitting Physician: Roque [...] 5 Refills, Maintenance, 11/16/20 15:34:00 EDT, Aerosol, [facility] #[id number], Partial fill upon patient request if the prescription is for a schedule II opioid drug., 2 puffs Inhalation 2 times a d... Start Date: 11/16/20 Status: Ordered aspirin 81 mg oral delayed release tablet 2 tablet = 162 mg, By Mouth, Daily, start at 12 weeks, 09/11/21, # 90 tablet, 0 Refills, Maintenance,08/16/21 13:37:00 EST, CR Tablet, [facility] #[id number], Partial fill upon patient request ifthe prescription is for a schedule II opioid drug.,... Start Date: 08/16/21 Status: Ordered cyclobenzaprine 10 mg oral tablet 1, tablet, By Mouth, 3 times a day, PRN, # 45 tablet, Refills 0, Tot. Refills 0, Acute, NEEDED FOR SPASM, 08/25/20 9:53:00 EST, Route to Pharmacy Electronically, [facility] #[id number], 157, cm, 06/08/20 15:12:00 EST, Height, 84.5, kg, ... Start Date: 08/25/20 Status: Ordered Lidoderm 5% film 1 patch, Topically, Daily, (remove patch(s) after 12 hours), # 30 patch, 0 Refills, Maintenance, 10/12/20 11:07:00 EST, [facility] #[id number], Partial fill upon patient request if the prescription is for a schedule II opioid drug., 1 patch Topic... Start Date: 10/12/20 Status: Ordered MiraLax oral powder for reconstitution = 17 Gm, By Mouth, Daily, dissolve in water before taking, # 527 Gm, 0 Refills, Maintenance, 08/16/21 13:56:00 EST, REC Powder, [facility] #[id number], Partial fill upon patient request if the prescription is for a schedule II opioid drug., 17 Gm... Start Date: 08/16/21 Status: Ordered Multivitamins with Vitamin B Complex, Vitamin C, Minerals and L- Methylfolate oral capsule 1 capsule, By Mouth, Daily, # 30 capsule, 11 Refills, Maintenance, 08/05/21 17:50:00 EST, Capsule, [facility] #[id number], Partial fill upon patient request if the prescription is for a scheduleII opioid drug., 1 capsule By Mouth Daily, 157, cm,... Start Date: 08/05/21 Status: Ordered ProAir HFA 90 mcg/inh inhalation aerosol with adapter 2, puffs, Inhalation, Every 4 hours, PRN, # 8.5 Gm, Refills 5, Tot. Refills 5, Maintenance, 01/06/21 8:08:00 EDT, Aerosol, Route to Pharmacy Electronically, [id number], [facility] #[id number], 157, cm, 11/17/20 9:48:00 E... Start Date: [...] tablet, 0 Refills, Maintenance, 12/13/20 14:28:00 EDT, [facility] #[id number], 157, cm, 11/17/20 9:48:00 EDT, Height, 84.5, kg... Start Date: 12/13/20 Status: Ordered Unisom 25 mg oral tablet 1 tablet = 25 mg, By Mouth, Daily, 15 to 30 minutes before bed, # 30 tablet, 1 Refills, Acute 09/16/21 13:36:00 EST, 08/16/21 13:36:00 EST, Tablet, [facility] #[id number], Partial fill upon patient request if the prescription is for a schedule II... Start Date: 08/16/21 Stop Date: 09/16/21 Status: Ordered Vitamin B6 25 mg oral tablet 1 tablet = 25 mg, By Mouth, 3 times a day, # 100 tablet, 1 Refills, Acute 09/16/21 13:37:00 EST, 08/16/21 13:36:00 EST, [facility] #[id number], Partial fill upon patient request if the prescription is for a schedule II opioid drug., 157, cm, 2... Start Date: 08/16/21 Stop Date: 09/16/21 Status: Ordered Xulane 150 mcg-35 mcg/24 hr transdermal film, extended release 1 patch, Topically, Every week, # 3 each, 11 Refills, Maintenance, 03/29/21 11:42:00 EDT, [facility][id number], 1 patch Topically Every week,x7 days, 157, cm, 03/29/21 10:26:00 EDT, Height, 84.5, kg, 04/29/19 4:40:00 EDT, Dry Weight Start Date: 03/29/21 Stop Date: 06/21/21 Status: Ordered Zofran 4 mg oral tablet 1 tablet = 4 mg, By Mouth, Every 8 hours, PRN Nausea & Vomiting, # 20 tablet, 0 Refills, Acute 09/17/21 13:56:00 EST, 08/16/21 13:56:00 EST, Tablet, [facility] #[id number], Partial fill uponpatient request if the prescription [...]
--- OUTSIDE RECORDS SUMMARY | 2023-11-16 17:22 | XMS_ITS | Continuity of Care Document ---
Author Organization [facility] Address [address] [place] [address]- Care Team Providers Care Lab Rep Name Role Phone Aashish IBARRA, Lorraine Primary Care Physician Encounter [facility] Date(s): 11/25/21 - 02/02/[address] [address]- Attending Physician: Nicole Rocha MD Admitting Physician: Nicole Rocha MD Referring Physician: Yara Gamez NP Allergies, Adverse Reactions, Alerts Substance Reaction [...] each, 5 Refills, Maintenance, 11/25/21 15:15:00 [facility] [facility][id number], Partial fill upon patient request if the prescription is for a schedule II opioid drug., 2 puffs Inhalation 2 times a d... Start Date: 11/25/21 Status: Ordered Aspirin Low Dose 81 mg oral delayed release tablet 2 tablet, By Mouth, Daily, START AT 12 WEEKS, 09/11/21, # 90 tablet, 3 Refills, [facility] #[id number], 154, cm, 01/04/22 13:56:00 EDT, Height, 86.5, kg, 10/29/21 21:50:00 EDT, Dry Weight Start Date: 01/05/22 Status: Ordered Benadryl 25 mg oral capsule 2 capsule = 50 mg, By Mouth, Daily at bedtime, PRN Pain , Moderate, # 100 capsule, 0 Refills, Maintenance, 11/08/21 15:02:00 EDT, Capsule, [facility] #[id number], Partial fill upon patient request if the prescription is for a schedule II opioid d... Start Date: 11/08/21 Status: Ordered ferrous sulfate 325 mg oral tablet 1 tablet = 325 mg, By Mouth, Daily, # 30 tablet, 3 Refills, Maintenance, 01/05/22 12:46:00 EDT, Tablet, [facility] #[id number], Partial fill upon patient request if the prescription is for a schedule II opioid drug., 154, cm, 01/04/22 13:56:00 ED... Start Date: 01/05/22 Status: Ordered Lidoderm 5% film 1 patch, Topically, Daily, (remove patch(s) after 12 hours), # 30 patch, 5 Refills, Maintenance, 11/25/21 15:09:00 EDT, [facility] #[id number], Partial fill upon patient request if the prescription is for a schedule II opioid drug., 1 patch Topic... Start Date: 11/25/21 Status: Ordered MiraLax oral powder for reconstitution = 17 Gm, By Mouth, Daily, dissolve in water before taking, # 527 Gm, 0 Refills, Maintenance, 08/16/21 13:56:00 EST, REC Powder, [facility] #[id number], Partial fill upon patient request if the prescription is for a schedule II opioid drug., 17 Gm... Start Date: 08/16/21 Status: Ordered Multivitamins with Folic Acid 1 mg oral tablet 1 tablet, By Mouth, Daily, # 90 tablet, 3 Refills, Maintenance, 09/16/21 15:48:00 EST, Tablet, [facility] #[id number], Partial fill upon patient request if the prescription is for a schedule II opioid drug., 1 tablet By Mouth Daily, 157, cm, 020... Start Date: 09/16/21 Status: Ordered ProAir HFA 90 mcg/inh inhalation aerosol with adapter 2, puffs, Inhalation, Every 4 hours, PRN, # 8.5 Gm, Refills 2, Tot. Refills 2, Maintenance, 11/25/21 15:15:00 EDT, Aerosol, Route to Pharmacy Electronically, [id number], [facility] #[id number], 154, cm, 11/25/21 14:53:00... Start Date: 11/25/21 [...] 1 Refills, Maintenance, 01/08/22 14:18:00 EDT, Capsule, [facility] #[id number], Partial fill upon patient request if the [...]
--- OUTSIDE RECORDS SUMMARY | 2023-11-16 17:22 | XMS_ITS | Continuity of Care Document ---
Author Organization [facility] Address [address] [place] [id number]- Care Team Providers Care Production Helper Name Role Phone Aashish IBARRA, Lorraine Primary Care Physician Encounter [facility] Date(s): 10/11/21 - 11/10/[address] [address]- Allergies, Adverse Reactions, Alerts Substance Reaction Severity [...] 5 Refills, Maintenance, 11/16/20 15:34:00 EDT, Aerosol, [facility] #[id number], Partial fill upon patient request if the prescription is for a schedule II opioid drug., 2 puffs Inhalation 2 times a d... Start Date: 11/16/20 Status: Ordered aspirin 81 mg oral delayed release tablet 2 tablet = 162 mg, By Mouth, Daily, start at 12 weeks, 09/11/21, # 90 tablet, 0 Refills, Maintenance,08/16/21 13:37:00 EST, CR Tablet, [facility] #[id number], Partial fill upon patient request ifthe prescription is for a schedule II opioid drug.,... Start Date: 08/16/21 Status: Ordered Benadryl 25 mg oral capsule 2 capsule = 50 mg, By Mouth, Daily at bedtime, PRN Pain , Moderate, # 100 capsule, 0 Refills, Maintenance, 11/08/21 15:02:00 EDT, Capsule, [facility] #[id number], Partial fill upon patient request if the prescription is for a schedule II opioid d... Start Date: 11/08/21 Status: Ordered clotrimazole 1% vaginal cream with applicator 1 application, Vaginally, Daily at bedtime, Apply vaginally each night for 1 week., # 45 Gm, 0 Refills, Maintenance, 10/12/21 14:02:00 EST, Cream, [facility] #[id number], Partial fill upon patient request if the prescription is for a schedule II... Start Date: 10/12/21 Status: Ordered Lidoderm 5% film 1 patch, Topically, Daily, (remove patch(s) after 12 hours), # 30 patch, 0 Refills, Maintenance, 10/12/20 11:07:00 EST, [facility] #[id number], Partial fill upon patient request if the prescription is for a schedule II opioid drug., 1 patch Topic... Start Date: 10/12/20 Status: Ordered MiraLax oral powder for reconstitution = 17 Gm, By Mouth, Daily, dissolve in water before taking, # 527 Gm, 0 Refills, Maintenance, 08/16/21 13:56:00 EST, REC Powder, [facility] #[id number], Partial fill upon patient request if the prescription is for a schedule II opioid drug., 17 Gm... Start Date: 08/16/21 Status: Ordered Multivitamins with Folic Acid 1 mg oral tablet 1 tablet, By Mouth, Daily, # 90 tablet, 3 Refills, Maintenance, 09/16/21 15:48:00 EST, Tablet, [facility] #[id number], Partial fill upon patient request if the prescription is for a schedule II opioid drug., 1 tablet By Mouth Daily, 157, cm, 020... Start Date: 09/16/21 Status: Ordered Multivitamins with Vitamin B Complex, Vitamin C, Minerals and L- Methylfolate oral capsule 1 capsule, By Mouth, Daily, # 30 capsule, 11 Refills, Maintenance, 08/05/21 17:50:00 EST, Capsule, [facility] #[id number], Partial fill upon patient request if the prescription is for a scheduleII opioid drug., 1 capsule By Mouth Daily, 157, cm,... Start Date: 08/05/21 Status: Ordered ProAir HFA 90 mcg/inh inhalation aerosol with adapter 2, puffs, Inhalation, Every 4 hours, PRN, # 8.5 Gm, Refills 5, Tot. Refills 5, Maintenance, 01/06/21 8:08:00 EDT, Aerosol, Route to Pharmacy Electronically, [id number], [facility] #[id number], 157, cm, 11/17/20 9:48:00 E... Start Date: 01/06/21 Status: Ordered Reglan 5 mg oral tablet 2 tablet = 10 mg, By Mouth, Once, # 28 tablet, 0 Refills, Soft Stop, 11/08/21 15:03:00 EDT, Tablet,[facility] #[id number], Partial fill upon patient request if the [...]
--- OUTSIDE RECORDS SUMMARY | 2023-11-16 17:22 | XMS_ITS | Continuity of Care Document ---
Author Organization [facility] Address [address] [place] [address]- Care Team Providers Care Museum Assistant Name Role Phone Aashish IBARRA, Lorraine Primary Care Physician [phone] Encounter [facility] Date(s): 05/26/22 - 06/25/22 [facility] [address] [address]- Allergies, Adverse Reactions, Alerts Substance Reaction Severity [...] 0 Refills, Maintenance, 05/17/22 15:05:00 EDT, Capsule, [facility] #[id number], Partial fill upon patient request if the prescription is for a schedule II opioid . Start Date: 05/17/22 Status: Ordered Advair HFA 115 mcg / 21 mcg 2 puffs, Inhalation, 2 times a day, # 1 each, 5 Refills, Maintenance, 05/03/22 16:02:00 EDT, Aerosol, [facility] #[id number], Partial fill upon patient request if the prescription is for a schedule II opioid drug., 2 puffs Inhalation 2 times a da... Start Date: 05/03/22 Stop Date: 10/30/22 Status: Ordered albuterol CFC free 90 mcg/inh inhalation aerosol 2, puffs, Inhalation, Every 6 hours, PRN, # 8.5 Gm, Refills 11, Tot. Refills 11, Maintenance, 05/03/22 11:45:00 EDT, Aerosol, Route to Pharmacy Electronically, [id number], [facility] #[id number], dispense brand preferred... Start Date: 05/03/22 Stop Date: 04/28/23 Status: Ordered clotrimazole 1% topical cream 1 application, Topically, 2 times a day, # 12 Gm, 0 Refills, Maintenance, 04/11/22 4:42:00 EDT, Cream, [facility] #[id number], Partial fill upon patient request if the prescription is for a schedule II opioid drug., 1 application Topically 2 time... Start Date: 04/11/22 Status: Ordered Colace sodium 100 mg oral capsule 100 mg, 1, capsule, By Mouth, 2 times a day, PRN, # 20 capsule, Refills 0, Tot. Refills 0, Maintenance, for constipation, 03/18/22 15:18:00 EDT, Route to Pharmacy Electronically, [facility]#[id number], Partial fill upon patient request if the pr... Start Date: 03/18/22 Status: Ordered Dilaudid 2 mg oral tablet 1 tablet = 2 mg, By Mouth, Every 4 hours, # 10 tablet, 0 Refills, Maintenance, 03/18/22 18:17:00 EDT, Tablet, [facility] #[id number], Partial fill upon patient request if the prescription is fora schedule II opioid drug., 154, cm, 03/18/22 11:26... Start Date: 03/18/22 Status: Ordered ferrous sulfate 325 mg oral tablet 1 tablet = 325 mg, By Mouth, Daily, # 30 tablet, 3 Refills, Maintenance, 01/05/22 12:46:00 EDT, Tablet, [facility] #[id number], Partial fill upon patient request if the prescription is for a schedule II opioid drug., 154, cm, 01/04/22 13:56:00 ED... Start Date: 01/05/22 Status: Ordered ibuprofen 600 mg oral tablet 600 mg, 1, tablet, By Mouth, Every 6 hours, # 50 tablet, Refills 0, Tot. Refills 0, Maintenance, 03/18/22 15:18:00 EDT, Route to Pharmacy Electronically, [facility] #[id number], Partial fill upon patient request if the prescription is for a sched... Start Date: 03/18/22 Status: Ordered MiraLax oral powder for reconstitution = 17 Gm, By Mouth, Daily, dissolve in water before taking, # 527 Gm, 0 Refills, Maintenance, 08/16/21 13:56:00 EST, REC Powder, [facility] #[id number], Partial fill upon patient request if the prescription is for a schedule II opioid drug., 17 Gm... Start Date: 08/16/21 Status: Ordered Multivitamins with Folic Acid 1 mg oral tablet 1 tablet, By Mouth, Daily, # 90 tablet, 3 Refills, Maintenance, 05/03/22 12:05:00 EDT, Tablet, [facility] #[id number], Partial fill upon patient request if the prescription is for a schedule II opioid drug., 1 tablet By Mouth Daily,x90 days, 157,... Start Date: 05/03/22 Stop Date: 04/28/23 Status: Ordered simethicone 125 mg oral tablet, chewable 1 tablet = 125 mg, Chew, 4 times a day, # 48 tablet, 0 Refills, Maintenance, 03/18/22 15:18:00 EDT,Chew Tablet, [facility] #[id number], Partial fill upon patient request if the [...] 03/18/22 15:18:00 EDT, Cream, [facility] #[id number], Partial fill upon patient request if the [...] Care Team Personnel Name: Gauri Pascual Position: [facility] RN Member Role: Primary Care Nurse Name: Lorraine Zendejas MD Position: [facility] Primary Care Physician Member Role: PCP Address: Address: [address] [place] [address]- Care Team Related Persons Name: RELL PHELPS Address: [address] [address] Name: RUSLAN ABREU Address: [address] Address: [place] [address] [address] [place] Name: NAY DEL ANGEL Address: [address] [place] [address] Name: PRAVIN PARKER Address: home [address] [place] [address] Name: ADITHYA HAYDEN Address: [address] Address: [address] [address] [place] Name: PRAVIN HAYDEN Address: [address] [place] [address]
--- OUTSIDE RECORDS SUMMARY | 2023-11-16 17:22 | XMS_ITS | Continuity of Care Document ---
Author Organization [facility] Address [address] [place] [address]- Care Team Providers Care Apartment House Manager Name Role Phone Aashish IBARRA, Lorraine Primary Care Physician [phone] Encounter [facility] Date(s): 08/05/20 - 09/04/[address] [address]- Allergies, Adverse Reactions, Alerts Substance Reaction Severity [...] 08/25/20 9:53:00 EST, Route to Pharmacy Electronically, [facility] #[id number], 157, cm, 06/08/20 15:12:00 EST, Height, 84.5, kg, ... Start Date: 08/25/20 Status: Ordered Flovent HFA 220 mcg/inh inhalation aerosol 2 puffs, Inhalation, 2 times a day, use with spacer chamber rinse mouth and throat after use, # 1 each, 5 Refills, Maintenance, 08/04/20 12:45:00 EST, Aerosol, [facility] #[id number], 157, cm, 06/08/20 15:12:00 EST, Height, 84.5, kg, 04/29/19 4:... Start Date: 08/04/20 Status: Ordered lidocaine 4% topical film 1 patch, Topically, Daily, # 15 each, 0 Refills, Acute 09/13/20 13:33:00 EST, 08/13/20 13:33:00 EST, Film, [facility] #[id number], Partial fill upon patient request if the prescription is for a schedule II opioid drug., 1 patch Topically Daily, 1... Start Date: 08/13/20 Stop Date: 09/13/20 Status: Ordered ProAir HFA 90 mcg/inh inhalation aerosol with adapter 2, puffs, Inhalation, Every 4 hours, PRN, # 8.5 Gm, Refills 5, Tot. Refills 5, Maintenance, 08/04/20 12:45:00 EST, Aerosol, Route to Pharmacy Electronically, [id number], [facility] #[id number], 157, cm, 06/08/20 15:12:00... Start Date: 08/04/20 [...] # 18 tablet, 1 Refills, Soft Stop, [facility] #[id number], 157, cm, 07/31/19 8:49:00 EST, Height, 84.5, kg, 04/29/19 4:40:00 EDT, D... Start Date: 10/07/19 Status: Ordered Xulane 150 mcg-35 mcg/24 hr transdermal film, extended release 1 patch, Topically, Every week, # 3 each, 11 Refills, Maintenance, 05/26/20 10:54:00 EDT, [facility] #[id number], 1 patch Topically Every week,x7 days, 157, [...]
--- OUTSIDE RECORDS SUMMARY | 2023-11-16 17:22 | XMS_ITS | Continuity of Care Document ---
Author Organization [facility] ter Address [address] [place] [address]- Care Team Providers Care Ingredient Scaler Helper Name Role Phone Lorraine Zendejas MD Primary Care Physician Encounter [facility] Date(s): 09/15/23 - 09/15/[address] [address]- Encounter Diagnosis Gastroenteritis, acute(Final) - 09/15/23 Discharge Disposition: A-D/C Home Attending Physician: Maulik Kearney MD Admitting Physician: Maulik Kearney MD Referring Physician: Not on Staff, Referring [...] 08/15/22 15:08:00 EST, [id number] Partial fill upon patient request if the prescription... Start Date: 08/15/22 Status: Ordered Advair HFA 115 mcg / 21 mcg 2 puffs, Inhalation, 2 times a day, # 1 each, 5 Refills, Maintenance, 05/03/22 16:02:00 EDT, Aerosol, [facility] #[id number], Partial fill upon patient request if the prescription is for a schedule II opioid drug., 2 puffs Inhalation 2 times a da... Start Date: 05/03/22 Stop Date: 10/30/22 Status: Ordered albuterol 0.083% inhalation solution 3 mL = 2.5 mg, Inhalation, Every 6 hours, PRN for wheezing, # 25 each, 0 Refills, Maintenance, 05/29/23 20:07:00 EDT, Solution, [facility] #[id number], Partial fill upon patient request if the prescription is for a schedule II opioid drug., 156,... Start Date: 05/29/23 Status: Ordered cetirizine 5 mg oral tablet = 5 mg, By Mouth, Daily, # 30 tablet, 0 Refills, Maintenance, 11/17/22 10:48:00 EDT, Tablet, [facility] #[id number], Partial fill upon patient request if the prescription is for a schedule II opioid drug., 156, cm, 11/17/22 8:44:00 EDT, Height, 8... Start Date: 11/17/22 Status: Ordered Depakote 250 mg oral enteric coated tablet 1 tablet = 250 mg, By Mouth, 2 times a day, # 60 tablet, 3 Refills, Maintenance, 02/28/23 16:39:00 EDT, [facility] #[id number], Partial fill upon patient request if the prescription is for a schedule II opioid drug., 155, cm, 02/28/23 11:38:00 ED... Start Date: 02/28/23 Status: Ordered dicyclomine 20 mg oral tablet 1 tablet = 20 mg, By Mouth, 4 times a day, 30 to 60 minutes before meals, # 28 tablet, 4 Refills, Maintenance, 04/05/23 11:18:00 EDT, Tablet, [facility] #[id number], Partial fill upon patient request if the prescription is for a schedule II opioi... Start Date: 04/05/23 Stop Date: 05/10/23 Status: Ordered ibuprofen 400 mg oral tablet 400 mg, 1, tablet, By Mouth, Every 4 hours, PRN, # 60 tablet, Refills 0, Tot. Refills 0, Maintenance, for pain, 11/17/22 10:49:00 EDT, Route to Pharmacy Electronically, [facility] #[id number], Partial fill upon patient request if the prescription... Start Date: 11/17/22 Status: Ordered MiraLax oral powder for reconstitution = 17 Gm, By Mouth, Daily, dissolve in water before taking, # 527 Gm, 0 Refills, Maintenance, 11/17/22 10:47:00 EDT, REC Powder, [facility] #[id number], Partial fill upon patient request if the prescription is for a schedule II opioid drug., 17 Gm... Start Date: 11/17/22 Status: Ordered Nexplanon 68 mg subcutaneous implant 1 each = 68 mg, Subcutaneous Infusion, Once, Left arm, placed 07/23/2023 Lot #[id number], # 1 each, 0 Refills, Maintenance, 07/23/23 16:11:00 EST, Partial fill upon patient request if the prescription is for a schedule II opioid drug. Start Date: 07/23/23 Status: Ordered ondansetron 4 mg oral tablet, disintegrating 1 tablet = 4 mg, By Mouth, Every 8 hours, PRN Nausea & Vomiting, # 10 tablet, 0 Refills, Maintenance, 09/15/23 11:34:00 EST, Tablet, [facility] #[id number], Partial fill upon patient requestif the prescription [...] Refills, Soft Stop, 01/25/23 10:30:00 EDT, Tablet, [facility] #0... Start Date: 01/25/23 Status: Ordered Problem List Condition Confirmation Course Effective Dates Status Health St atus Informant Anemia Confirmed Active Asthma Confirmed Active Depression Confirmed Active Headache Confirmed Active History of pre-eclampsia Confirmed Active Obese class II Confirmed Active Uterine scar from previous delivery Confirmed Active Vital Signs Most recent to oldest [Reference Range]: 1 2 3 Weight 87.5 kg (09/15/23 11:47 AM) 87.5 kg (09/15/23 7:45 AM) 87.5 kg (09/15/23 5:54 AM) Oxygen Saturation [94-100 %] 100 % (09/15/23 11:47 AM) 100 % (09/15/23 7:45 AM) 99 % (09/15/23 5:44 AM) Pulse Rate [55-90 bpm] 88 bpm (09/15/23 11:47 AM) 82 bpm (09/15/23 7:45 AM) 122 bpm *H* (09/15/23 5:44 AM) Blood Pressure [90-138/55-84 mm Hg] 121/55mm Hg (09/15/23 11:47 AM) 121/64mm Hg (09/15/23 7:45 AM) 130/86mm Hg (09/15/23 5:44 AM) Respiratory Rate [16-30 br/min] 24 br/min (09/15/23 11:47 AM) 18 br/min (09/15/23 7:45 AM) 24 br/min (09/15/23 5:44 AM) Temperature [96.8-100.4 DegF] 97.7 DegF (09/15/23 11:47 AM) 98.9 DegF (09/15/23 5:49 AM) Mode of Delivery (Oxygen) Room air (09/15/23 11:47 AM) Room air (09/15/23 7:45 AM) Room air (09/15/23 5:44 AM) Blood pressure sites Arm, left (09/15/23 11:47 AM) Arm, right (09/15/23 5:44 AM) Temperature Route Oral (09/15/23 11:47 AM) Oral (09/15/23 5:49 AM) Dry Weight 87.5 kg (09/15/23 11:47 AM) 87.5 kg (09/15/23 7:45 AM) 87.5 kg (09/15/23 5:54 AM) Social History Social History Type Response Smoking Status Never (less than 100 in lifetime) entered on: 02/15/22 Sex Female EKG study * Event Display: ECG 12-Lead Authored Date: [id number] Please click on pdf link to open report * Event Display: ECG 12-Lead Authored Date: [id number] Ventricular Rate: 92 BPM Atrial Rate: 92 BPM P-R Interval: 122 ms QRS Duration: 92 ms Q-T Interval: 346 ms QTC Calculation(Bazett): 427 ms P Stigler: 39 degrees R Stigler: 15 degrees T Stigler: 7 degrees Normal sinus rhythm Normal ECG When compared with ECG of 03-SEP-2023 10:51, No significant change was found Confirmed by RENETTA CROUCH MD ([id number]) on 09/15/2023 1:41:12 PM [place]: RENETTA CROUCH MD Note * Trang Montoya DO: PERFORM Event Display: Patient Education Leaflets Authored Date: [id number] Nonspecific Vomiting and Diarrhea (Adult) ?? [id number] Nonspecific Vomiting and Diarrhea (Adult) Vomiting and diarrhea can have many causes, including: ??? Helping your body get rid of harmful substances? Gastroenteritis caused by viruses, parasites,??bacteria, or toxins ??? Allergy to??or side effect of??a food or medicine ??? Severe stress orworry (anxiety)? Other illnesses ??? It's often hard to pinpoint an exact cause, even with testing.??Vomiting and diarrhea often go awaywithin a day or two without problems. But if these symptoms continue, it may lead to too much loss of fluid (dehydration). This can be serious if not treated. Home care Medicines ??? You may use acetaminophen or nonsteroidal anti-inflammatory drugs (NSAID) such as ibuprofen or naproxen to control fever, unless another medicine was prescribed. If you have chronic liver or kidney disease, talk with your healthcare provider before using these medicines. Also talk with your provider if you've had a stomach ulcer or??gastrointestinal bleeding. Don't give aspirin to anyone under 18 years of age who is ill with a fever because it may cause a serious illness called Ari syndrome that may result in severe disease or even . Don't use NSAID medicines if you are already taking one for another condition (like arthritis) or are on aspirin (such as for heart disease or after a stroke) ??? Fjbp-oqy-gvjznvr medicines for diarrhea, nausea, and vomiting are generally OK unlessyou have bleeding, fever, or severe abdominal pain. General care ??? If symptoms are severe, rest at home for the next 24 hours, or until you are feeling better. ??? Washing your hands with soap and clean, running water, or using alcohol-based hand powder expert??is the best way to stop the spread of infection. Wash your hands after touching anyone who is sick. ??? Wash your hands after using the toilet and before meals. Clean the toilet after each use. ??? Dry your hands with a single-use disposable towel ??? Caffeine, tobacco, and alcohol can make the diarrhea, cramping, and pain worse. Remember, caffeine not only is??in coffee, but also is??in chocolate, some energy drinks, some soft drinks, and teas. Diet ??? Water and clear liquids are important so you don't get dehydrated. Drink a small amount at a time but frequently. Don't guzzle down the drinks.??That may increase your nausea, make cramping worse, and??cause the drinks??to come back up. ??? Sports drinks may also help if you are healthy and nottoo dehydrated. But, they have too much sugar and not enough electrolytes and can sometimes make things worse. Also, don't drink beverages that are too acidic, like orange juice and grape juice. ??? If you are very dehydrated, products called oral rehydration solutions are available at most grocerystores and pharmacies. Food ??? Don't force yourself to eat, especially if you have cramps, diarrhea, or vomiting.??Eat just a little at a time, and then wait a few minutes before you try to eat more. ??? Don't eat fatty, greasy, spicy, or fried foods. ??? Don't eat dairy products if you have diarrhea. They can make it worse. During the first??24 hours??(the first full day),??follow the diet below: ??? Beverages: Oral rehydration solutions, sports drinks, soft drinks without caffeine, mineral water, and decaffeinated tea and coffee ??? Soups: Clear broth, consomm??, and bouillon ??? Desserts: Plain gelatin, ice pops, and fruit juice bars During the next 24 hours??(the second day),??you may add the following to the above??if you are better. If not, continue what you did the first day: ??? Hot cereal, plain toast, bread, rolls, crackers ??? Plain noodles, rice, mashed potatoes, chicken noodle or rice soup ??? Unsweetened canned fruit (avoid pineapple), bananas ??? Limit fat intake to less than 15 grams per day by avoiding margarine, butter, oils, mayonnaise, sauces, gravies, fried foods, peanut butter, meat, poultry, and fish. ??? Limit fiber. Avoid raw or cooked vegetables, fresh fruits (except bananas) and bran cereals. ??? Limit caffeine and chocolate. No spices or seasonings except salt. During the next 24 hours: ??? Gradually resume a normal diet, as you feel better and your symptoms improve. ??? If at any time??your symptoms??start getting worse again, go back to clear liquids until you feel better. Food preparation ??? If you have diarrhea, do not prepare food for others. When preparing foods, wash your hands before and after. ??? Wash your hands or use alcohol-based powder expert after using cutting boards, counter tops, and knives that have been in contact with raw food. ??? Dry your hands witha single-use disposable towel. ??? Keep uncooked meats away from cooked and sozel-hh-flu foods. ?? Follow-up care Follow up with your healthcare provider, or as advised. Call if you don't get better in the next 2 to 3 days. If a stool (diarrhea) sample was taken,??or cultures done, you will be told if they are positive, or if your treatment needs to be changed. You may call as directed for the results. If X-rays were taken, you will be notified of any new findings that may affect your care ?? Call 911 Call 911 if any of these occur: ??? Trouble breathing ??? Chest pain ??? Confusion ??? Severe drowsiness or trouble awakening ??? Fainting or loss of consciousness ??? Rapid heart rate ??? Seizure ??? Stiff neck ??? Severe weakness, dizziness, or lightheadedness ?? When to get medical advice Call your healthcare provider right away if any of these occur: ??? Bloody or black vomit or stools??? Severe, steady abdominal pain or any abdominal pain that is getting worse ??? Severe headache or stiff neck ??? An inability to hold down even sips of liquids for more than 12 hours ??? Vomiting that lasts more than 24 hours ??? Diarrhea that lasts more than 24 hours ??? Fever of 100.4??F (38.0??C) or higher, or as directed by your healthcare provider ??? Yellowish color to your skin or the whites of your eyes ??? Signs of dehydration,??such as dry mouth, little urine (less than every 6 hours), or very dark urine ?? Last Reviewed Date: 2022 ?? [id number] [employer]. All rights reserved. This information is not intended as a substitute for professional medical care. Always follow your healthcare professional's instructions. ?? * Trang Montoya DO: PERFORM Event Display: Patient Education Leaflets Authored Date: [id number] Viral Gastroenteritis (Adult) ?? [id number] Viral Gastroenteritis (Adult) Gastroenteritis is often called the stomach flu. But it has nothing to do with influenza. It's mostoften caused by a virus that affects the stomach and intestinal tract. Most bouts last from 2 to 7 days. Common viruses causing gastroenteritis include norovirus, rotavirus, and hepatitis A. Nonviralcauses of gastroenteritis include bacteria, parasites, and toxins. The danger from repeated vomiting or diarrhea is dehydration. This is when the body loses too??muchfluid. When this occurs, you must replace the body fluids. Antibiotics aren't an effective treatment for this condition because it's caused by a virus. Symptoms of viral gastroenteritis may include: ??? Watery, loose stools ??? Stomach pain or belly (abdominal) cramps ??? Fever and chills ??? Nausea and vomiting ??? Loss of bowel control ??? Headache Home care Gastroenteritis is spread by contact with the stool or vomit of an infected person. This can occur from person to person or from contact with a contaminated surface. Follow these guidelines when caring for yourself at home: ??? If symptoms are severe, rest at home for the next 24 hours or until you are feeling better. ???Wash your hands with soap and clean, running water or use alcohol-based powder expert to prevent the spread of infection. Wash your hands after touching anyone who is sick. ??? Wash your hands or use alcohol-based powder expert after using the toilet and before meals. Clean the toilet after each use. Remember these tips when preparing food: ??? People with diarrhea should not prepare or serve food??to others. When preparing foods, wash your hands before and after. ??? Wash your hands after using cutting boards, counter tops, knives, or utensils??that have been in contact with raw food. ??? Dry your hands with a single-use disposable towel. ??? Keep uncooked meats away from cooked and irvqe-yr-lnx foods. Medicine Use acetaminophen or nonsteroidal anti-inflammatory drugs (NSAID) such as ibuprofen or naproxen to control fever, unless another medicine was given. If you have chronic liver or kidney disease, talk with your healthcare provider before using these medicines. Also talk with your provider if you've??had a stomach ulcer or??gastrointestinal bleeding. Don't give aspirin??to anyone under 18 years of age who is ill with a fever. It may result in a serious illness called Sang syndrome that may cause severe liver damage or even . Don't use NSAIDS if you're already taking one for another condition (like arthritis) or are on aspirin (such as for heart disease or after a stroke). If medicines for vomiting or diarrhea are prescribed, take these only as directed. Nausea and diarrhea medicines are generally OK unless you have bleeding, fever, or severe abdominal pain. Diet Follow these guidelines for??food: ??? Water and liquids are important so you don't get dehydrated. Drink small amounts often or suck on ice chips as tolerated if you are vomiting. ??? If you eat, stay away from fatty, greasy, spicy, or fried foods. ??? Don't eat dairy if you have diarrhea. This can make diarrhea worse. ??? Avoid tobacco, alcohol, and caffeine. These may worsen symptoms. During the first 24 hours (the first full day), follow the diet below: ??? Beverages. Sip sports drinks, soft drinks without caffeine, kerwin kunal, mineral water (plain orflavored), decaffeinated tea and coffee. If you are very dehydrated, sports drinks aren't a good choice. They have too much sugar and not enough electrolytes. In this case, use products called oral rehydration solutions. You can buy these at pharmacies and grocery stores. ??? Soups. Eat clear broth, consomm??, and bouillon. ??? Desserts. Eat gelatin, ice pops, and fruit juice bars. During the next 24 hours (the second day), you may add the following to the above: ??? Hot cereal, plain toast, bread, rolls, and crackers ??? Plain noodles, rice, mashed potatoes, chicken noodle or rice soup ??? Unsweetened canned fruit (avoid pineapple), bananas ??? Limit fat intake to less than 15 grams per day. Do this by avoiding margarine, butter, oils, mayonnaise, sauces, gravies, fried foods, peanut butter, meat, poultry, and fish. ??? Limit fiber and avoid raw or cooked vegetables, fresh fruits (except bananas), and bran cereals. ??? Limit caffeine and chocolate. Don't use spices or seasonings other than salt. ??? Limit dairy products. ??? Avoid alcohol. During the next 24 hours: ??? Gradually resume a normal diet as you feel better and your symptoms improve. ??? If at any time it starts getting worse again, go back to clear liquids until you feel better. ?? Follow-up care Follow up with your healthcare provider, or??as advised. Call your provider if you don't get betterwithin 24 hours or if diarrhea lasts more than a few days. It's also important to follow up if you can't keep down liquids, which can lead to becoming dehydrated. If a stool (diarrhea) sample was taken, call as directed for the results. ?? Call 911 Call 911 if any of these occur: ??? Trouble breathing ??? Chest pain ??? Confused ??? Severe drowsiness or trouble awakening ??? Fainting or loss of consciousness ??? Rapid heart rate ??? Seizure ???Stiff neck ?? When to get medical advice Call your healthcare provider right away if any of these occur: ??? Abdominal pain that gets worse ??? Continued vomiting (can't keep liquids down) ??? Frequent diarrhea (more than 5 times a day) ???Blood in vomit or stool (black or red color) ??? Dark urine, reduced urine output, or extreme thirst ??? Weakness or dizziness ??? Drowsiness ??? Fever of 100.4??F (38??C)??or higher, or as advised by your provider ??? New rash ?? Last Reviewed Date: 2021 ?? [id number] [employer]. All rights reserved. This information is not intended as a substitute for professional medical care. Always follow your healthcare professional's instructions. ?? Patient Care team information Care Team Personnel Name: Vivi Bailey NP Position: [facility] PCO Associate Professional Member Role: [employer] Provider Address: Address: [address] [place] [address]- Name: Gauri Pascual Position: [facility] RN Member Role: Primary Care Nurse Name: Lorraine Zendejas MD Position: [facility] Physician - Primary Care Member Role: PCP Address: Address: [address] [place] [address]- Care Team Related Persons Name: KENDAL PHELPS Address: home [address] [place] [address] Name: RELL PHELPS Address: [address] [address] Name: RUSLAN ABREU Address: [address] Address: home [address] Name: NAY DEL ANGEL Address: home [address] [place] [address] Name: PRAVIN PARKER Address: home [address] [place] [address] Name: ADITHYA HAYDEN Address: [address] Address: home [address] [place] [address] Name: PRAVIN HAYDEN Address: home [address] [place] [address]
--- OUTSIDE RECORDS SUMMARY | 2023-11-16 17:22 | XMS_ITS | Continuity of Care Document ---
Author Organization [facility] Address [address] [place] [address]- Care Team Providers Care Punchboard Inserter Name Role Phone Lorraine Zendejas MD Primary Care Physician Encounter [facility] Date(s): 11/08/21 - 12/08/21 [facility] [address] [place] [address] Attending Physician: Admchristina, Roque Admitting Physician: Admtr, Ar8 Referring Physician: Admtr, [...] 5 Refills, Maintenance, 11/25/21 15:15:00 EDT, Aerosol, [facility] #[id number], Partial fill upon patient request if the prescription is for a schedule II opioid drug., 2 puffs Inhalation 2 times a d... Start Date: 11/25/21 Status: Ordered aspirin 81 mg oral delayed release tablet 2 tablet = 162 mg, By Mouth, Daily, start at 12 weeks, 09/11/21, # 90 tablet, 0 Refills, Maintenance,08/16/21 13:37:00 EST, CR Tablet, [facility] #[id number], Partial fill upon patient request ifthe prescription is for a schedule II opioid drug.,... Start Date: 08/16/21 Status: Ordered Benadryl 25 mg oral capsule 2 capsule = 50 mg, By Mouth, Daily at bedtime, PRN Pain , Moderate, # 100 capsule, 0 Refills, Maintenance, 11/08/21 15:02:00 EDT, Capsule, [facility] #[id number], Partial fill upon patient request if the prescription is for a schedule II opioid d... Start Date: 11/08/21 Status: Ordered clotrimazole 1% vaginal cream with applicator 1 application, Vaginally, Daily at bedtime, Apply vaginally each night for 1 week., # 45 Gm, 0 Refills, Maintenance, 10/12/21 14:02:00 EST, Cream, [facility] #[id number], Partial fill upon patient request if the prescription is for a schedule II... Start Date: 10/12/21 Status: Ordered Lidoderm 5% film 1 patch, Topically, Daily, (remove patch(s) after 12 hours), # 30 patch, 5 Refills, Maintenance, 11/25/21 15:09:00 EDT, [facility] #[id number], Partial fill upon patient request if the prescription is for a schedule II opioid drug., 1 patch Topic... Start Date: 11/25/21 Status: Ordered MiraLax oral powder for reconstitution = 17 Gm, By Mouth, Daily, dissolve in water before taking, # 527 Gm, 0 Refills, Maintenance, 08/16/21 13:56:00 EST, REC Powder, [facility] #[id number], Partial fill upon patient request if the prescription is for a schedule II opioid drug., 17 Gm... Start Date: 08/16/21 Status: Ordered Multivitamins with Folic Acid 1 mg oral tablet 1 tablet, By Mouth, Daily, # 90 tablet, 3 Refills, Maintenance, 09/16/21 15:48:00 EST, Tablet, [facility] #[id number], Partial fill upon patient request if the prescription is for a schedule II opioid drug., 1 tablet By Mouth Daily, 157, cm, 020... Start Date: 09/16/21 Status: Ordered Multivitamins with Vitamin B Complex, Vitamin C, Minerals and L- Methylfolate oral capsule 1 capsule, By Mouth, Daily, # 30 capsule, 11 Refills, Maintenance, 08/05/21 17:50:00 EST, Capsule, [facility] #[id number], Partial fill upon patient request if the prescription is for a scheduleII opioid drug., 1 capsule By Mouth Daily, 157, cm,... Start Date: 08/05/21 Status: Ordered ProAir HFA 90 mcg/inh inhalation aerosol with adapter 2, puffs, Inhalation, Every 4 hours, PRN, # 8.5 Gm, Refills 2, Tot. Refills 2, Maintenance, 11/25/21 15:15:00 EDT, Aerosol, Route to Pharmacy Electronically, [id number], [facility] #[id number], 154, cm, 11/25/21 14:53:00... Start Date: 11/25/21 Status: Ordered Reglan 5 mg oral tablet 2 tablet = 10 mg, By Mouth, Once, # 28 tablet, 0 Refills, Soft Stop, 11/08/21 15:03:00 EDT, Tablet,[facility] #[id number], Partial fill upon patient request if the [...]
--- OUTSIDE RECORDS SUMMARY | 2023-11-16 17:22 | XMS_ITS | Continuity of Care Document ---
Author Organization [facility] Address [address] [place] [address]- Care Team Providers Care Frame Carver Spindle Name Role Phone Lorraine Zendejas MD Primary Care Physician [phone] Encounter [facility] [id number] Date(s): 07/21/19 - 07/31/[address] [address]- [facility] Attending Physician: Roque Villela Admitting Physician: AdmtrRoque [...] 11:47:01 EDT, Aerosol, Route to Pharmacy Electronically, [id number], [facility] [id number] Start Date: 10/30/18 Status: Ordered Slow Fe [...]
--- OUTSIDE RECORDS SUMMARY | 2023-11-16 17:22 | XMS_ITS | Continuity of Care Document ---
Author Organization [facility] Address [address] [place] [address]- Care Team Providers Care Transportation Sales Consultant Name Role Phone Aashish IBARRA, Lorraine Primary Care Physician [phone] [facility]22 - 03/17/22 [facility] [address] [address]- Allergies, Adverse Reactions, Alerts Substance Reaction Severity [...] 5 Refills, Maintenance, 11/25/21 15:15:00 EDT, Aerosol, [facility] #[id number], Partial fill upon patient request if the prescription is for a schedule II opioid drug., 2 puffs Inhalation 2 times a d... Start Date: 11/25/21 Status: Ordered Aspirin Low Dose 81 mg oral delayed release tablet 2 tablet, By Mouth, Daily, START AT 12 WEEKS, 09/11/21, # 90 tablet, 3 Refills, [facility] #[id number], 154, cm, 01/04/22 13:56:00 EDT, Height, 86.5, kg, 10/29/21 21:50:00 EDT, Dry Weight Start Date: 01/05/22 Status: Ordered ferrous sulfate 325 mg oral tablet 1 tablet = 325 mg, By Mouth, Daily, # 30 tablet, 3 Refills, Maintenance, 01/05/22 12:46:00 EDT, Tablet, [facility] #[id number], Partial fill upon patient request if the prescription is for a schedule II opioid drug., 154, cm, 01/04/22 13:56:00 ED... Start Date: 01/05/22 Status: Ordered magnesium oxide 400 mg oral tablet 1 tablet = 400 mg, By Mouth, Daily, for 30 days, to treat and prevent headaches, # 30 tablet, 3 Refills, Acute 06/22/22 19:25:00 EST, 02/22/22 19:25:00 EDT, Tablet, [facility] #[id number], Partial fill upon patient request if the prescription is... Start Date: 02/22/22 Stop Date: 06/22/22 Status: Ordered MiraLax oral powder for reconstitution = 17 Gm, By Mouth, Daily, dissolve in water before taking, # 527 Gm, 0 Refills, Maintenance, 08/16/21 13:56:00 EST, REC Powder, [facility] #[id number], Partial fill upon patient request if the prescription is for a schedule II opioid drug., 17 Gm... Start Date: 08/16/21 Status: Ordered Multivitamins with Folic Acid 1 mg oral tablet 1 tablet, By Mouth, Daily, # 90 tablet, 3 Refills, Maintenance, 09/16/21 15:48:00 EST, Tablet, [facility] #[id number], Partial fill upon patient request if the prescription is for a schedule II opioid drug., 1 tablet By Mouth Daily, 157, cm, ... Start Date: 09/16/21 Status: Ordered ProAir HFA 90 mcg/inh inhalation aerosol with adapter 2, puffs, Inhalation, Every 4 hours, PRN, # 8.5 Gm, Refills 2, Tot. Refills 2, Maintenance, 11/25/21 15:15:00 EDT, Aerosol, Route to Pharmacy Electronically, [id number], [facility] #[id number], 154, cm, 11/25/21 14:53:00... Start Date: 11/25/21 [...]
--- OUTSIDE RECORDS SUMMARY | 2023-11-16 17:22 | XMS_ITS | Continuity of Care Document ---
Author Organization [facility] Address [address] [place] [address]- Care Team Providers Care Test Administrator Name Role Phone Aashish IBARRA, Lorraine Primary Care Physician [facility] Date[facility]s): 11/[facility]/21 - 12/08/[address] [address] Allergies, Adverse Reactions, Alerts Substance Reaction [...] 5 Refills, Maintenance, 11/25/21 15:15:00 EDT, Aerosol, [facility] #[id number], Partial fill upon patient request if the prescription is for a schedule II opioid drug., 2 puffs Inhalation 2 times a d... Start Date: 11/25/21 Status: Ordered aspirin 81 mg oral delayed release tablet 2 tablet = 162 mg, By Mouth, Daily, start at 12 weeks, 09/11/21, # 90 tablet, 0 Refills, Maintenance,08/16/21 13:37:00 EST, CR Tablet, [facility] #[id number], Partial fill upon patient request ifthe prescription is for a schedule II opioid drug.,... Start Date: 08/16/21 Status: Ordered Benadryl 25 mg oral capsule 2 capsule = 50 mg, By Mouth, Daily at bedtime, PRN Pain , Moderate, # 100 capsule, 0 Refills, Maintenance, 11/08/21 15:02:00 EDT, Capsule, [facility] #[id number], Partial fill upon patient request if the prescription is for a schedule II opioid d... Start Date: 11/08/21 Status: Ordered clotrimazole 1% vaginal cream with applicator 1 application, Vaginally, Daily at bedtime, Apply vaginally each night for 1 week., # 45 Gm, 0 Refills, Maintenance, 10/12/21 14:02:00 EST, Cream, [facility] #[id number], Partial fill upon patient request if the prescription is for a schedule II... Start Date: 10/12/21 Status: Ordered Lidoderm 5% film 1 patch, Topically, Daily, (remove patch(s) after 12 hours), # 30 patch, 5 Refills, Maintenance, 11/25/21 15:09:00 EDT, [facility] #[id number], Partial fill upon patient request if the prescription is for a schedule II opioid drug., 1 patch Topic... Start Date: 11/25/21 Status: Ordered MiraLax oral powder for reconstitution = 17 Gm, By Mouth, Daily, dissolve in water before taking, # 527 Gm, 0 Refills, Maintenance, 08/16/21 13:56:00 EST, REC Powder, [facility] #[id number], Partial fill upon patient request if the prescription is for a schedule II opioid drug., 17 Gm... Start Date: 08/16/21 Status: Ordered Multivitamins with Folic Acid 1 mg oral tablet 1 tablet, By Mouth, Daily, # 90 tablet, 3 Refills, Maintenance, 09/16/21 15:48:00 EST, Tablet, [facility] #[id number], Partial fill upon patient request if the prescription is for a schedule II opioid drug., 1 tablet By Mouth Daily, 157, cm, 020... Start Date: 09/16/21 Status: Ordered Multivitamins with Vitamin B Complex, Vitamin C, Minerals and L- Methylfolate oral capsule 1 capsule, By Mouth, Daily, # 30 capsule, 11 Refills, Maintenance, 08/05/21 17:50:00 EST, Capsule, [facility] #[id number], Partial fill upon patient request if the prescription is for a scheduleII opioid drug., 1 capsule By Mouth Daily, 157, cm,... Start Date: 08/05/21 Status: Ordered ProAir HFA 90 mcg/inh inhalation aerosol with adapter 2, puffs, Inhalation, Every 4 hours, PRN, # 8.5 Gm, Refills 2, Tot. Refills 2, Maintenance, 11/25/21 15:15:00 EDT, Aerosol, Route to Pharmacy Electronically, [id number], [facility] #[id number], 154, cm, 11/25/21 14:53:00... Start Date: 11/25/21 Status: Ordered Reglan 5 mg oral tablet 2 tablet = 10 mg, By Mouth, Once, # 28 tablet, 0 Refills, Soft Stop, 11/08/21 15:03:00 EDT, Tablet,[facility] #[id number], Partial fill upon patient request if the [...] Replace Required Details, Route to Pharmacy Electronically, [facility]... Start Date: 11/25/21 Status: Ordered Problem List [...]
--- OUTSIDE RECORDS SUMMARY | 2023-11-16 17:22 | XMS_ITS | Continuity of Care Document ---
Author Organization [facility] Address [address] [facility], [address] Floor, [address] [place] [address]- Care Team Providers Care Band Saw Operator Name Role Phone Aashish IBARRA, Lorraine Primary Care Physician [facility] Date[facility]s): 10/13/22 - 11/24/22 [facility] [address], [address], [address] [place] [address]- Attending Physician: Oc ARELLANO, Zuly Major Admitting [...] 08/15/22 15:08:00 EST, Route to Pharmacy Electronically, [facility][id number], Partial fill upon patient request if the prescription... Start Date: 08/15/22 Status: Ordered Advair HFA 115 mcg / 21 mcg 2 puffs, Inhalation, 2 times a day, # 1 each, 5 Refills, Maintenance, 05/03/22 16:02:00 EDT, Aerosol, [facility] #[id number], Partial fill upon patient request if the prescription is for a schedule II opioid drug., 2 puffs Inhalation 2 times a da... Start Date: 05/03/22 Stop Date: 10/30/22 Status: Ordered albuterol 0.083% inhalation solution 3 mL = 2.5 mg, Inhalation, Every 6 hours, PRN Wheezing/Shortness of Breath, # 60 each, 1 Refills, Maintenance, 11/09/22 13:41:00 EDT, Solution, [facility] #[id number], Partial fill upon patient request if the prescription is for a schedule II opi... Start Date: 11/09/22 Status: Ordered albuterol CFC free 90 mcg/inh inhalation aerosol 2, puffs, Inhalation, Every 6 hours, PRN, for 30 days, # 8.5 Gm, Refills 11, Tot. Refills 11, Hard Stop 04/28/23 11:45:00 EDT, 05/03/22 11:45:00 EDT, Aerosol, Route to Pharmacy Electronically, [id number], [facility]... Start Date: 05/03/22 Stop Date: 04/28/23 Status: Ordered benzonatate 100 mg oral capsule 1 capsule = 100 mg, By Mouth, 3 times a day, PRN as needed for cough, for 14 days, # 42 capsule, 0 Refills, Acute 11/28/22 16:18:00 EDT, 11/14/22 16:18:00 EDT, Capsule, [facility] #[id number], Partial fill upon patient request if the prescription... Start Date: 11/14/22 Stop Date: 11/28/22 Status: Ordered cetirizine 5 mg oral tablet = 5 mg, By Mouth, Daily, # 30 tablet, 0 Refills, Maintenance, 11/17/22 10:48:00 EDT, Tablet, [facility] #[id number], Partial fill upon patient request if the prescription is for a schedule II opioid drug., 156, cm, 11/17/22 8:44:00 EDT, Height, 8... Start Date: 11/17/22 Status: Ordered ibuprofen 400 mg oral tablet 400 mg, 1, tablet, By Mouth, Every 4 hours, PRN, # 60 tablet, Refills 0, Tot. Refills 0, Maintenance, for pain, 11/17/22 10:49:00 EDT, Route to Pharmacy Electronically, [facility] #[id number], Partial fill upon patient request if the prescription... Start Date: 11/17/22 Status: Ordered lidocaine 1.8% topical film 1 patch, Topically, Daily, leave on up to 12 hours, # 30 each, 0 Refills, Maintenance, 11/17/22 10:47:00 EDT, Film, [facility] #[id number], Partial fill upon patient request if the prescription is for a schedule II opioid drug., 1 patch Topically... Start Date: 11/17/22 Status: Ordered MiraLax oral powder for reconstitution = 17 Gm, By Mouth, Daily, dissolve in water before taking, # 527 Gm, 0 Refills, Maintenance, 11/17/22 10:47:00 EDT, REC Powder, [facility] #[id number], Partial fill upon patient request if the [...] 2 Refills, Maintenance, 11/07/22 17:30:00 EDT, Tablet, [facility] #[id number], Partial fill upon patient request if the [...] Care Team Personnel Name: Gauri Pascual Position: [facility] RN Member Role: Primary Care Nurse Name: Lorraine Zendejas MD Position: [facility] Primary Care Physician Member Role: PCP Address: Address: [address] [place] [address]- Care Team Related Persons Name: RELL PHELPS Address: home [address] [place] [address] Name: RUSLAN ABREU Address: [address] Address: [address] [address] [place] Name: NAY DEL ANGEL Address: [address] [address] Name: PRAVIN PARKER Address: home [address] [place] [address] Name: ADITHYA HAYDEN Address: [address] Address: home [address] [address] [place] Name: PRAVIN HAYDEN Address: home [address] [place] [address]
--- OUTSIDE RECORDS SUMMARY | 2023-11-16 17:22 | XMS_ITS | Continuity of Care Document ---
Author Organization [facility] Address [address] [place] [address]- Care Team Providers Care Spring Assembler Supervisor Name Role Phone Lorraine Zendejas MD Primary Care Physician [place] [facility] [place] - 10/04/[address] [address] Discharge Disposition: A-D/C Home Attending Physician: Von [...] 5 Refills, Maintenance, 11/16/20 15:34:00 EDT, Aerosol, [facility] #[id number], Partial fill upon patient request if the prescription is for a schedule II opioid drug., 2 puffs Inhalation 2 times a d... Start Date: 11/16/20 Status: Ordered aspirin 81 mg oral delayed release tablet 2 tablet = 162 mg, By Mouth, Daily, start at 12 weeks, 09/11/21, # 90 tablet, 0 Refills, Maintenance,08/16/21 13:37:00 EST, CR Tablet, [facility] #[id number], Partial fill upon patient request ifthe prescription is for a schedule II opioid drug.,... Start Date: 08/16/21 Status: Ordered Benadryl 25 mg oral capsule 2 capsule = 50 mg, By Mouth, Daily at bedtime, PRN Pain , Moderate, # 100 capsule, 0 Refills, Maintenance, 10/04/21 2:02:00 EST, Capsule, [facility] #[id number], Partial fill upon patient request if the prescription is for a schedule II opioid dr... Start Date: 10/04/21 Status: Ordered Lidoderm 5% film 1 patch, Topically, Daily, (remove patch(s) after 12 hours), # 30 patch, 0 Refills, Maintenance, 10/12/20 11:07:00 EST, [facility] #[id number], Partial fill upon patient request if the prescription is for a schedule II opioid drug., 1 patch Topic... Start Date: 10/12/20 Status: Ordered MiraLax oral powder for reconstitution = 17 Gm, By Mouth, Daily, dissolve in water before taking, # 527 Gm, 0 Refills, Maintenance, 08/16/21 13:56:00 EST, REC Powder, [facility] #[id number], Partial fill upon patient request if the prescription is for a schedule II opioid drug., 17 Gm... Start Date: 08/16/21 Status: Ordered Multivitamins with Folic Acid 1 mg oral tablet 1 tablet, By Mouth, Daily, # 90 tablet, 3 Refills, Maintenance, 09/16/21 15:48:00 EST, Tablet, [facility] #[id number], Partial fill upon patient request if the prescription is for a schedule II opioid drug., 1 tablet By Mouth Daily, 157, cm, 02/0... Start Date: 09/16/21 Status: Ordered Multivitamins with Vitamin B Complex, Vitamin C, Minerals and L- Methylfolate oral capsule 1 capsule, By Mouth, Daily, # 30 capsule, 11 Refills, Maintenance, 08/05/21 17:50:00 EST, Capsule, [facility] #[id number], Partial fill upon patient request if the prescription is for a scheduleII opioid drug., 1 capsule By Mouth Daily, 157, cm,... Start Date: 08/05/21 Status: Ordered ProAir HFA 90 mcg/inh inhalation aerosol with adapter 2, puffs, Inhalation, Every 4 hours, PRN, # 8.5 Gm, Refills 5, Tot. Refills 5, Maintenance, 01/06/21 8:08:00 EDT, Aerosol, Route to Pharmacy Electronically, [id number], [facility] #[id number], 157, cm, 11/17/20 9:48:00 E... Start Date: 01/06/21 Status: Ordered Reglan 5 mg oral tablet 2 tablet = 10 mg, By Mouth, Once, # 28 tablet, 0 Refills, Soft Stop, 10/04/21 2:02:00 EST, Tablet, [facility] #[id number], Partial fill upon patient request if the [...] Most recent to oldest [Reference Range]: 1 Oxygen Saturation [94-100 %] 100 % (10/03/21 10:38 PM) Pulse Rate [55-90 bpm] 78 bpm (10/03/21 10:38 PM) Blood Pressure [90-138/55-84 mm Hg] 116/ 68mm Hg (10/03/21 10:38 PM) Respiratory Rate [16-30 br/min] 18 br/mi n (10/03/21 10:38 PM) Temperature [96.8-100.4 DegF] 98.6 DegF (10/03/21 10:38 PM) Mode of Delivery (Oxygen) Room air (10/03/21 10:38 PM) Blood pressure sites Arm, right (10/03/21 10:38 PM) Temperature Route Oral (10/03/21 10:38 PM) Social History Social History Type Response Smoking Status Never smoker; Tobacc o user in household: No entered on: 12/05/16 Sex Female
--- OUTSIDE RECORDS SUMMARY | 2023-11-16 17:22 | XMS_ITS | Continuity of Care Document ---
Author Organization [facility] Address [address] [place] [address]- Care Team Providers Care Utilization Engineer Name Role Phone Aashish IBARRA, Lorraine Primary Care Physician [facility] Date(s): 10/11/20 - 11/10/[address] [address]- Allergies, Adverse Reactions, Alerts Substance Reaction Severity [...] 14:46:00 EST, Powder, Route to Pharmacy Electronically, [id number]... Start Date: 09/27/20 Status: Ordered cyclobenzaprine 10 mg oral tablet 1, tablet, By Mouth, 3 times a day, PRN, # 45 tablet, Refills 0, Tot. Refills 0, Acute, NEEDED FOR SPASM, 08/25/20 9:53:00 EST, Route to Pharmacy Electronically, [facility] #[id number], 157, cm, 06/08/20 15:12:00 EST, Height, 84.5, kg, ... Start Date: 08/25/20 Status: Ordered Lidoderm 5% film 1 patch, Topically, Daily, (remove patch(s) after 12 hours), # 30 patch, 0 Refills, Maintenance, 10/12/20 11:07:00 EST, [facility] #[id number], Partial fill upon patient request if the prescription is for a schedule II opioid drug., 1 patch Topic... Start Date: 10/12/20 Status: Ordered ProAir HFA 90 mcg/inh inhalation aerosol with adapter 2, puffs, Inhalation, Every 4 hours, PRN, # 8.5 Gm, Refills 5, Tot. Refills 5, Maintenance, 08/04/20 12:45:00 EST, Aerosol, Route to Pharmacy Electronically, [id number], [facility] #[id number], 157, cm, 06/08/20 15:12:00... Start Date: 08/04/20 [...] # 18 tablet, 1 Refills, Soft Stop, [facility] #[id number], 157, cm, 07/31/19 8:49:00 EST, Height, 84.5, kg, 04/29/19 4:40:00 EDT, D... Start Date: 10/07/19 Status: Ordered Xulane 150 mcg-35 mcg/24 hr transdermal film, extended release 1 patch, Topically, Every week, # 3 each, 11 Refills, Maintenance, 05/26/20 10:54:00 EDT, [facility] #[id number], 1 patch Topically Every week,x7 days, 157, [...]
--- OUTSIDE RECORDS SUMMARY | 2023-11-16 17:22 | XMS_ITS | Continuity of Care Document ---
Author Organization [facility] Address [address] [place] [address]- Care Team Providers Care Machine Pecan Picker Name Role Phone Lorraine Zendejas MD Primary Care Physician [phone] [facility]counter [facility] Date(s): 03/30/21 - 04/29/[address] [address]- Allergies, Adverse Reactions, Alerts Substance Reaction Severity [...] 5 Refills, Maintenance, 11/16/20 15:34:00 EDT, Aerosol, [facility] #[id number], Partial fill upon patient request if the prescription is for a schedule II opioid drug., 2 puffs Inhalation 2 times a d... Start Date: 11/16/20 Status: Ordered cyclobenzaprine 10 mg oral tablet 1, tablet, By Mouth, 3 times a day, PRN, # 45 tablet, Refills 0, Tot. Refills 0, Acute, NEEDED FOR SPASM, 08/25/20 9:53:00 EST, Route to Pharmacy Electronically, [facility] #[id number], 157, cm, 06/08/20 15:12:00 EST, Height, 84.5, kg, ... Start Date: 08/25/20 Status: Ordered Lidoderm 5% film 1 patch, Topically, Daily, (remove patch(s) after 12 hours), # 30 patch, 0 Refills, Maintenance, 10/12/20 11:07:00 EST, [facility] #[id number], Partial fill upon patient request if the prescription is for a schedule II opioid drug., 1 patch Topic... Start Date: 10/12/20 Status: Ordered ProAir HFA 90 mcg/inh inhalation aerosol with adapter 2, puffs, Inhalation, Every 4 hours, PRN, # 8.5 Gm, Refills 5, Tot. Refills 5, Maintenance, 01/06/21 8:08:00 EDT, Aerosol, Route to Pharmacy Electronically, [id number], [facility] #[id number], 157, cm, 11/17/20 9:48:00 E... Start Date: [...] tablet, 0 Refills, Maintenance, 12/13/20 14:28:00 EDT, [facility] #[id number], 157, cm, 11/17/20 9:48:00 EDT, Height, 84.5, kg... Start Date: 12/13/20 Status: Ordered Xulane 150 mcg-35 mcg/24 hr transdermal film, extended release 1 patch, Topically, Every week, # 3 each, 11 Refills, Maintenance, 03/29/21 11:42:00 EDT, [facility] #[id number], 1 patch Topically Every week,x7 days, 157, [...]
--- OUTSIDE RECORDS SUMMARY | 2023-11-16 17:22 | XMS_ITS | Continuity of Care Document ---
Author Organization [facility] ter Address [address] [place] [address]- Care Team Providers Care Development Educator Name Role Phone Aashish IBARRA, Lorraine Primary Care Physician [facility] Date(s): 04/11/22 - 04/11/[address] [id number] Discharge Disposition: A-D/C Home Attending Physician: Ghazala Thompson MD Admitting Physician: Ghazala Thompson MD Referring Physician: Ghazala Thompson MD Allergies, Adverse Reactions, Alerts Substance Reaction [...] 0 Refills, Maintenance, 03/18/22 15:18:00 EDT, Capsule, [facility] #[id number], Partial fill upon patient request if the prescription is for a schedule II opioid . Start Date: 03/18/22 Status: Ordered Advair HFA 115 mcg / 21 mcg 2 puffs, Inhalation, 2 times a day, # 60 each, 5 Refills, Maintenance, 11/25/21 15:15:00 EDT, Aerosol, [facility][id number], Partial fill upon patient request if the prescription is for a schedule II opioid drug., 2 puffs Inhalation 2 times a d... Start Date: 11/25/21 Status: Ordered Aspirin Low Dose 81 mg oral delayed release tablet 2 tablet, By Mouth, Daily, START AT 12 WEEKS, 09/11/21, # 90 tablet, 3 Refills, [facility] #[id number], 154, cm, 01/04/22 13:56:00 EDT, Height, 86.5, kg, 10/29/21 21:50:00 EDT, Dry Weight Start Date: 01/05/22 Status: Ordered cephalexin monohydrate 500 mg oral capsule 1 capsule = 500 mg, By Mouth, 4 times a day, for 10 days, # 40 capsule, 0 Refills, Acute 04/21/22 4:40:00 EDT, 04/11/22 4:40:00 EDT, Capsule, [facility] #[id number], Partial fill upon patient request if the prescription is for a schedule II opioi... Start Date: 04/11/22 Stop Date: 04/21/22 Status: Ordered clotrimazole 1% topical cream 1 application, Topically, 2 times a day, # 12 Gm, 0 Refills, Maintenance, 04/11/22 4:42:00 EDT, Cream, [facility] #[id number], Partial fill upon patient request if the prescription is for a schedule II opioid drug., 1 application Topically 2 time... Start Date: 04/11/22 Status: Ordered Colace sodium 100 mg oral capsule 100 mg, 1, capsule, By Mouth, 2 times a day, PRN, # 20 capsule, Refills 0, Tot. Refills 0, Maintenance, for constipation, 03/18/22 15:18:00 EDT, Route to Pharmacy Electronically, [id number], Partial fill upon patient request if the pr... Start Date: 03/18/22 Status: Ordered Dilaudid 2 mg oral tablet 1 tablet = 2 mg, By Mouth, Every 4 hours, # 10 tablet, 0 Refills, Maintenance, 03/18/22 18:17:00 EDT, Tablet, [facility] #[id number], Partial fill upon patient request if the prescription is fora schedule II opioid drug., 154, cm, 03/18/22 11:26... Start Date: 03/18/22 Status: Ordered ferrous sulfate 325 mg oral tablet 1 tablet = 325 mg, By Mouth, Daily, # 30 tablet, 3 Refills, Maintenance, 01/05/22 12:46:00 EDT, Tablet, [facility] #[id number], Partial fill upon patient request if the prescription is for a schedule II opioid drug., 154, cm, 01/04/22 13:56:00 ED... Start Date: 01/05/22 Status: Ordered ibuprofen 600 mg oral tablet 600 mg, 1, tablet, By Mouth, Every 6 hours, # 50 tablet, Refills 0, Tot. Refills 0, Maintenance, 03/18/22 15:18:00 EDT, Route to Pharmacy Electronically, [facility] #[id number], Partial fill upon patient request if the prescription is for a sched... Start Date: 03/18/22 Status: Ordered magnesium oxide 400 mg oral tablet 1 tablet = 400 mg, By Mouth, Daily, for 30 days, to treat and prevent headaches, # 30 tablet, 3 Refills, Acute 06/22/22 19:25:00 EST, 02/22/22 19:25:00 EDT, Tablet, [facility] #[id number], Partial fill upon patient request if the prescription is... Start Date: 02/22/22 Stop Date: 06/22/22 Status: Ordered MiraLax oral powder for reconstitution = 17 Gm, By Mouth, Daily, dissolve in water before taking, # 527 Gm, 0 Refills, Maintenance, 08/16/21 13:56:00 EST, REC Powder, [facility] #[id number], Partial fill upon patient request if the prescription is for a schedule II opioid drug., 17 Gm... Start Date: 08/16/21 Status: Ordered Multivitamins with Folic Acid 1 mg oral tablet 1 tablet, By Mouth, Daily, # 90 tablet, 3 Refills, Maintenance, 09/16/21 15:48:00 EST, Tablet, [facility] #[id number], Partial fill upon patient request if the prescription is for a schedule II opioid drug., 1 tablet By Mouth Daily, 157, cm, 020... Start Date: 09/16/21 Status: Ordered ProAir HFA 90 mcg/inh inhalation aerosol with adapter 2, puffs, Inhalation, Every 4 hours, PRN, # 8.5 Gm, Refills 2, Tot. Refills 2, Maintenance, 11/25/21 15:15:00 EDT, Aerosol, Route to Pharmacy Electronically, [id number], [facility] #[id number], 154, cm, 11/25/21 14:53:00... Start Date: 11/25/21 Status: Ordered simethicone 125 mg oral tablet, chewable 1 tablet = 125 mg, Chew, 4 times a day, # 48 tablet, 0 Refills, Maintenance, 03/18/22 15:18:00 EDT,Chew Tablet, [facility] #[id number], Partial fill upon patient request if the [...] 0 Refills, Maintenance, 03/18/22 15:18:00 EDT, Cream, [facility] #[id number], Partial fill upon patient request if the [...] recent to oldest [Reference Range]: 1 Height 154 cm (04/11/22 2:57 AM) Weight 83.9 kg (04/11/22 2:48 AM) Oxygen Saturation [94-100 %] 100 % (04/11/22 2:57 AM) Pulse Rate [55-90 bpm] 68 bpm (04/11/22 2:57 AM) Blood Pressure [90-138/55-84 mm Hg] 102/ 54mm Hg (04/11/22 2:57 AM) Respiratory Rate [16-30 br/min] 18 br/mi n (04/11/22 2:57 AM) Temperature [96.8-100.4 DegF] 97.9 DegF (04/11/22 2:57 AM) Mode of Delivery (Oxygen) Room air (04/11/22 2:57 AM) Blood pressure sites Arm, left (04/11/22 2:57 AM) Temperature Route Oral (04/11/22 2:57 AM) Dry Weight 83.9 kg (04/11/22 2:48 AM) Weight Obtained Via Standing scale (04/11/22 2:48 AM) Social History Social History Type Response Smoking Status Never (less than 100 in lifetime) entered on: 02/15/22 Sex Care Team Personnel Name: Lorraine Zendejas MD Address: [address]
--- OUTSIDE RECORDS SUMMARY | 2023-11-16 17:22 | XMS_ITS | Continuity of Care Document ---
Author Organization [facility] Address [address] [place] [address]- Care Team Providers Care Tie Worker Name Role Phone Aashish IBARRA, Lorraine Primary Care Physician [facility] Date(s): 11/20/19 - 11/27/19 [facility] [address] [address]- [facility] Attending Physician: Sarahy Pollard MD Allergies, Adverse Reactions, Alerts Substance Reaction [...] 5 Refills, Maintenance, 11/03/19 12:31:00 EDT, [facility][id number], 157, cm, 07/31/19 8:49:00 EST, Height, 84.5, [...] 12:31:00 EDT, Aerosol, Route to Pharmacy Electronically, [id number], [facility] #[id number], 157, cm, 07/31/19 8:49:00... Start Date: 11/03/19 [...] # 18 tablet, 1 Refills, Soft Stop, [facility] #[id number], 157, cm, 07/31/19 8:49:00 EST, Height, 84.5, kg, 04/29/19 4:40:00 EDT, D... Start Date: 10/07/19 Status: Ordered Problem List Condition Effective Dates Status Health Status Inform ant Anemia(Confirmed) Active Asthma(Confirmed) Active Depression(Confirmed) Active Fatigue(Confirmed) Active Headache(Confirmed) Active History of pre-eclampsia(Confirmed) Active Vital Signs Most recent to oldest [Reference Range]: 1 Height 157 cm (11/20/19 2:28 PM) Social History Social History Type Response Smoking Status Never smoker; Tobacc o user in household: No entered on: 12/05/16 Sex Female
--- OUTSIDE RECORDS SUMMARY | 2023-11-16 17:22 | XMS_ITS | Continuity of Care Document ---
Author Organization [facility] Address [address] [place] [address]- Care Team Providers Care Interior Design Director Name Role Phone Lorraine Zendejas MD Primary Care Physician [place] [facility] [place]08[place] - 12/29/20 [facility] [address] [place] [address]- Discharge Disposition: A-D/C Home Attending Physician: Michaelle Garg Admitting Physician: Michaelle [...] 5 Refills, Maintenance, 11/16/20 15:34:00 EDT, Aerosol, [facility] #[id number], Partial fill upon patient request if the prescription is for a schedule II opioid drug., 2 puffs Inhalation 2 times a d... Start Date: 11/16/20 Status: Ordered Ambien 5 mg oral tablet See Instructions, 1 tablet to take the night of in lab sleep study, after arrival to sleep lab, # 1tablet, 0 Refills, Acute 02/10/21 9:42:00 EDT, 11/11/20 9:41:00 EDT, [facility] #[id number], Partial fill upon patient request if the prescription... Start Date: 11/11/20 Stop Date: 02/10/21 Status: Ordered cyclobenzaprine 10 mg oral tablet 1, tablet, By Mouth, 3 times a day, PRN, # 45 tablet, Refills 0, Tot. Refills 0, Acute, NEEDED FOR SPASM, 08/25/20 9:53:00 EST, Route to Pharmacy Electronically, [facility] #[id number], 157, cm, 06/08/20 15:12:00 EST, Height, 84.5, kg, ... Start Date: 08/25/20 Status: Ordered Lidoderm 5% film 1 patch, Topically, Daily, (remove patch(s) after 12 hours), # 30 patch, 0 Refills, Maintenance, 10/12/20 11:07:00 EST, [facility] #[id number], Partial fill upon patient request if the prescription is for a schedule II opioid drug., 1 patch Topic... Start Date: 10/12/20 Status: Ordered ProAir HFA 90 mcg/inh inhalation aerosol with adapter 2, puffs, Inhalation, Every 4 hours, PRN, # 8.5 Gm, Refills 5, Tot. Refills 5, Maintenance, 08/04/20 12:45:00 EST, Aerosol, Route to Pharmacy Electronically, [id number], [facility] #[id number], 157, cm, 06/08/20 15:12:00... Start Date: 08/04/20 [...] tablet, 0 Refills, Maintenance, 12/13/20 14:28:00 EDT, [facility] #[id number], 157, cm, 11/17/20 9:48:00 EDT, Height, 84.5, kg... Start Date: 12/13/20 Status: Ordered Xulane 150 mcg-35 mcg/24 hr transdermal film, extended release 1 patch, Topically, Every week, # 3 each, 11 Refills, Maintenance, 05/26/20 10:54:00 EDT, [facility] #[id number], 1 patch Topically Every week,x7 days, 157, [...]
--- OUTSIDE RECORDS SUMMARY | 2023-11-16 17:22 | XMS_ITS | Continuity of Care Document ---
Author Organization [facility] Address [address] [place] [address]- Care Team Providers Care Livestock Nutritionist Name Role Phone Lorraine Zendejas MD Primary Care Physician Encounter [id number] Date(s): 02/27/23 - 03/29/[address] [address]- Attending Physician: Roque Villela Admitting Physician: AdmtrRoque [...] 08/15/22 15:08:00 EST, Route to Pharmacy Electronically, [facility] #[id number], Partial fill upon patient request if the prescription... Start Date: 08/15/22 Status: Ordered Advair HFA 115 mcg / 21 mcg 2 puffs, Inhalation, 2 times a day, # 1 each, 5 Refills, Maintenance, 05/03/22 16:02:00 EDT, Aerosol, [facility] #[id number], Partial fill upon patient request if the prescription is for a schedule II opioid drug., 2 puffs Inhalation 2 times a da... Start Date: 05/03/22 Stop Date: 10/30/22 Status: Ordered albuterol 0.083% inhalation solution 3 mL = 2.5 mg, Inhalation, Every 6 hours, PRN Wheezing/Shortness of Breath, # 60 each, 1 Refills, Maintenance, 11/09/22 13:41:00 EDT, Solution, [facility] #[id number], Partial fill upon patient request if the prescription is for a schedule II opi... Start Date: 11/09/22 Status: Ordered albuterol CFC free 90 mcg/inh inhalation aerosol 2, puffs, Inhalation, Every 6 hours, PRN, for 30 days, # 8.5 Gm, Refills 11, Tot. Refills 11, Hard Stop 04/28/23 11:45:00 EDT, 05/03/22 11:45:00 EDT, Aerosol, Route to Pharmacy Electronically, [id number], [facility]... Start Date: 05/03/22 Stop Date: 04/28/23 Status: Ordered cetirizine 5 mg oral tablet = 5 mg, By Mouth, Daily, # 30 tablet, 0 Refills, Maintenance, 11/17/22 10:48:00 EDT, Tablet, [facility] #[id number], Partial fill upon patient request if the prescription is for a schedule II opioid drug., 156, cm, 11/17/22 8:44:00 EDT, Height, 8... Start Date: 11/17/22 Status: Ordered Depakote 250 mg oral enteric coated tablet 1 tablet = 250 mg, By Mouth, 2 times a day, # 60 tablet, 3 Refills, Maintenance, 02/28/23 16:39:00 EDT, [facility] #[id number], Partial fill upon patient request if the prescription is for a schedule II opioid drug., 155, cm, 02/28/23 11:38:00 ED... Start Date: 02/28/23 Status: Ordered ibuprofen 400 mg oral tablet 400 mg, 1, tablet, By Mouth, Every 4 hours, PRN, # 60 tablet, Refills 0, Tot. Refills 0, Maintenance, for pain, 11/17/22 10:49:00 EDT, Route to Pharmacy Electronically, [facility] #[id number], Partial fill upon patient request if the prescription... Start Date: 11/17/22 Status: Ordered lidocaine 1.8% topical film 1 patch, Topically, Daily, leave on up to 12 hours, # 30 each, 0 Refills, Maintenance, 11/17/22 10:47:00 EDT, Film, [facility] #[id number], Partial fill upon patient request if the prescription is for a schedule II opioid drug., 1 patch Topically... Start Date: 11/17/22 Status: Ordered metroNIDAZOLE 0.75% topical gel 1 application, Topically, Daily at bedtime, use vaginal applicator to insert vaginally nightly for 5 nights, # 45 Gm, 0 Refills, Maintenance, 02/14/23 16:28:00 EDT, Gel, [facility] #[id number], Partial fill upon patient request if the prescriptio... Start Date: 02/14/23 Stop Date: 02/19/23 Status: Ordered metroNIDAZOLE 500 mg oral tablet 1 tablet = 500 mg, By Mouth, Every 12 hours, # 28 tablet, 0 Refills, Maintenance, 01/25/23 16:14:00EDT, Tablet, [facility] #[id number], Partial fill upon patient request if the prescription is for a schedule II opioid drug., 156, cm, 01/25/23 15... Start Date: 01/25/23 Stop Date: 02/08/23 Status: Ordered MiraLax oral powder for reconstitution = 17 Gm, By Mouth, Daily, dissolve in water before taking, # 527 Gm, 0 Refills, Maintenance, 11/17/22 10:47:00 EDT, REC Powder, [facility] #[id number], Partial fill upon patient request if the [...] Refills, Soft Stop, 01/25/23 10:30:00 EDT, Tablet, [facility]... Start Date: 01/25/23 Status: [...] Team Personnel Name: Vivi Bailey NP Position: [facility] PCO Associate Professional Member Role: Lifetime Consulting Provider Address: Address: [address] [place] [id number] Name: Gauri Pascual Position: [facility] RN Member Role: Primary Care Nurse Name: Lorraine Zendejas MD Position: [facility] Physician - Primary Care Member Role: PCP Address: Address: [address] [place] [address]- Care Team Related Persons Name: KENDAL PHELPS Address: home [address] [place] [address] Name: RELL PHELPS Address: [address] [address] Name: RUSLAN ABREU Address: [address] Address: home [address] [place] [id number] Name: NAY DEL ANGEL Address: home [address] [place] [address] Name: PRAVIN PARKER Address: home [address] [place] [address] Name: ADITHYA HAYDEN Address: [address] Address: [place] [address] [address] Name: PRAVIN HAYDEN Address: [address] [address]
--- OUTSIDE RECORDS SUMMARY | 2023-11-16 17:23 | XMS_ITS | Continuity of Care Document ---
Author Organization [facility] Address [address] [place] [address]- Care Team Providers Care Monument Erector Name Role Phone Lorraine Zendejas MD Primary Care Physician [facility]counter [facility] Date(s): 08/10/23 - 09/09/[address] [address]- Allergies, Adverse Reactions, Alerts Substance Reaction Severity [...] 08/15/22 15:08:00 EST, Route to Pharmacy Electronically, [facility] #[id number], Partial fill upon patient request if the prescription... Start Date: 08/15/22 Status: Ordered Advair HFA 115 mcg / 21 mcg 2 puffs, Inhalation, 2 times a day, # 1 each, 5 Refills, Maintenance, 05/03/22 16:02:00 EDT, Aerosol, [facility] #[id number], Partial fill upon patient request if the prescription is for a schedule II opioid drug., 2 puffs Inhalation 2 times a da... Start Date: 05/03/22 Stop Date: 10/30/22 Status: Ordered albuterol 0.083% inhalation solution 3 mL = 2.5 mg, Inhalation, Every 6 hours, PRN for wheezing, # 25 each, 0 Refills, Maintenance, 05/29/23 20:07:00 EDT, Solution, [facility] #[id number], Partial fill upon patient request if the prescription is for a schedule II opioid drug., 156,... Start Date: 05/29/23 Status: Ordered aluminum hydroxide/magnesium hydroxide/simethicone 200 mg-200 mg-20 mg/5 mL oral suspension 10 mL, By Mouth, 4 times a day, PRN for control of stomach acid, for 7 days, # 180 mL, 0 Refills, Acute 09/10/23 15:29:00 EST, 09/03/23 15:29:00 EST, Suspension, [facility] #[id number], Partial fill upon patient request if the prescription is for... Start Date: 09/03/23 Stop Date: 09/10/23 Status: Ordered cetirizine 5 mg oral tablet = 5 mg, By Mouth, Daily, # 30 tablet, 0 Refills, Maintenance, 11/17/22 10:48:00 EDT, Tablet, [facility] #[id number], Partial fill upon patient request if the prescription is for a schedule II opioid drug., 156, cm, 11/17/22 8:44:00 EDT, Height, 8... Start Date: 11/17/22 Status: Ordered Depakote 250 mg oral enteric coated tablet 1 tablet = 250 mg, By Mouth, 2 times a day, # 60 tablet, 3 Refills, Maintenance, 02/28/23 16:39:00 EDT, [facility] #[id number], Partial fill upon patient request if the prescription is for a schedule II opioid drug., 155, cm, 02/28/23 11:38:00 ED... Start Date: 02/28/23 Status: Ordered dicyclomine 20 mg oral tablet 1 tablet = 20 mg, By Mouth, 4 times a day, 30 to 60 minutes before meals, # 28 tablet, 4 Refills, Maintenance, 04/05/23 11:18:00 EDT, Tablet, [facility] #[id number], Partial fill upon patient request if the prescription is for a schedule II opioi... Start Date: 04/05/23 Stop Date: 05/10/23 Status: Ordered ibuprofen 400 mg oral tablet 400 mg, 1, tablet, By Mouth, Every 4 hours, PRN, # 60 tablet, Refills 0, Tot. Refills 0, Maintenance, for pain, 11/17/22 10:49:00 EDT, Route to Pharmacy Electronically, [facility] #[id number], Partial fill upon patient request if the prescription... Start Date: 11/17/22 Status: Ordered MiraLax oral powder for reconstitution = 17 Gm, By Mouth, Daily, dissolve in water before taking, # 527 Gm, 0 Refills, Maintenance, 11/17/22 10:47:00 EDT, REC Powder, [facility] #[id number], Partial fill upon patient request if the prescription is for a schedule II opioid drug., 17 Gm... Start Date: 11/17/22 Status: Ordered Nexplanon 68 mg subcutaneous implant 1 each = 68 mg, Subcutaneous Infusion, Once, Left arm, placed 07/23/2023 Lot #[id number], # 1 each, 0 Refills, Maintenance, 07/23/23 [...] 3 Refills, Soft Stop, 01/25/23 10:30:00 EDT, Tiffanie, [facility]... Start Date: 01/25/23 [...] Member Role: Lifetime Consulting Provider Address: Address: [address] [place] [address]- Name: Gauri Pascual Position: [facility] RN Member Role: Primary Care Nurse Name: Lorraine Zendejas MD Position: [facility] Physician - Primary Care Member Role: PCP Address: Address: [address] [place] [address]- Care Team Related Persons Name: KENDAL PHELPS Address: home [address] [place] [address] Name: RELL PHELPS Address: [address] [address] Name: RUSLAN ABREU Address: [address] Address: home [address] [place] [address] [place] Name: NAY DEL ANGEL Address: [address] [place] [address] Name: PRAVIN PARKER Address: home [address] [place] [address] Name: ADITHYA HAYDEN Address: [address] Address: home [address] [place] [address] [place] Name: PRAVIN HAYDEN Address: [address] [place] [address]
--- OUTSIDE RECORDS SUMMARY | 2023-11-16 17:23 | XMS_ITS | Continuity of Care Document ---
Author Organization [facility] Address [address] [place] [address]- Care Team Providers Care Computerized Machine Fabric Cutter Name Role Phone Lorraine Zendejas MD Primary Care Physician Encounter [facility] Date(s): 04/05/23 - 05/05/[address] [address] Attending Physician: Roque Villela Admitting Physician: AdmtrRoque [...] 08/15/22 15:08:00 EST, Route to Pharmacy Electronically, [facility] #[id number], Partial fill upon patient request if the prescription... Start Date: 08/15/22 Status: Ordered Advair HFA 115 mcg / 21 mcg 2 puffs, Inhalation, 2 times a day, # 1 each, 5 Refills, Maintenance, 05/03/22 16:02:00 EDT, Aerosol, [facility] #[id number], Partial fill upon patient request if the prescription is for a schedule II opioid drug., 2 puffs Inhalation 2 times a da... Start Date: 05/03/22 Stop Date: 10/30/22 Status: Ordered albuterol 0.083% inhalation solution 3 mL = 2.5 mg, Inhalation, Every 6 hours, PRN Wheezing/Shortness of Breath, # 60 each, 1 Refills, Maintenance, 11/09/22 13:41:00 EDT, Solution, [facility] #[id number], Partial fill upon patient request if the prescription is for a schedule II opi... Start Date: 11/09/22 Status: Ordered cetirizine 5 mg oral tablet = 5 mg, By Mouth, Daily, # 30 tablet, 0 Refills, Maintenance, 11/17/22 10:48:00 EDT, Tablet, [facility] #[id number], Partial fill upon patient request if the prescription is for a schedule II opioid drug., 156, cm, 11/17/22 8:44:00 EDT, Height, 8... Start Date: 11/17/22 Status: Ordered Depakote 250 mg oral enteric coated tablet 1 tablet = 250 mg, By Mouth, 2 times a day, # 60 tablet, 3 Refills, Maintenance, 02/28/23 16:39:00 EDT, [facility] #[id number], Partial fill upon patient request if the prescription is for a schedule II opioid drug., 155, cm, 02/28/23 11:38:00 ED... Start Date: 02/28/23 Status: Ordered dicyclomine 20 mg oral tablet 1 tablet = 20 mg, By Mouth, 4 times a day, 30 to 60 minutes before meals, # 28 tablet, 4 Refills, Maintenance, 04/05/23 11:18:00 EDT, Tablet, [facility] #[id number], Partial fill upon patient request if the prescription is for a schedule II opioi... Start Date: 04/05/23 Stop Date: 05/10/23 Status: Ordered ibuprofen 400 mg oral tablet 400 mg, 1, tablet, By Mouth, Every 4 hours, PRN, # 60 tablet, Refills 0, Tot. Refills 0, Maintenance, for pain, 11/17/22 10:49:00 EDT, Route to Pharmacy Electronically, [facility] #[id number], Partial fill upon patient request if the prescription... Start Date: 11/17/22 Status: Ordered lidocaine 1.8% topical film 1 patch, Topically, Daily, leave on up to 12 hours, # 30 each, 0 Refills, Maintenance, 11/17/22 10:47:00 EDT, Film, [facility] #[id number], Partial fill upon patient request if the prescription is for a schedule II opioid drug., 1 patch Topically... Start Date: 11/17/22 Status: Ordered metroNIDAZOLE 0.75% topical gel 1 application, Topically, Daily at bedtime, use vaginal applicator to insert vaginally nightly for 5 nights, # 45 Gm, 0 Refills, Maintenance, 02/14/23 16:28:00 EDT, Gel, [facility] #[id number], Partial fill upon patient request if the prescriptio... Start Date: 02/14/23 Stop Date: 02/19/23 Status: Ordered metroNIDAZOLE 500 mg oral tablet 1 tablet = 500 mg, By Mouth, Every 12 hours, # 28 tablet, 0 Refills, Maintenance, 01/25/23 16:14:00EDT, Tablet, [facility] #[id number], Partial fill upon patient request if the prescription is for a schedule II opioid drug., 156, cm, 01/25/23 15... Start Date: 01/25/23 Stop Date: 02/08/23 Status: Ordered MiraLax oral powder for reconstitution = 17 Gm, By Mouth, Daily, dissolve in water before taking, # 527 Gm, 0 Refills, Maintenance, 11/17/22 10:47:00 EDT, REC Powder, [facility] #[id number], Partial fill upon patient request if the prescription is for a schedule II opioid drug., 17 Gm... Start Date: 11/17/22 Status: Ordered morphine 15 mg oral tablet, immediate release 1 tablet = 15 mg, By Mouth, Every 4 hours, PRN as needed for pain, # 10 tablet, 0 Refills, Maintenance, 04/03/23 19:18:00 EDT, Tablet, [facility] #[id number], Partial fill upon patient request if the prescription is for a schedule II opioid drug.... Start Date: 04/03/23 Status: Ordered ondansetron 4 mg oral tablet, disintegrating 1 tablet = 4 mg, By Mouth, Every 8 hours, PRN as needed for nausea/vomiting, # 10 tablet, 0 Refills, Maintenance, 04/03/23 19:22:00 EDT, DIS Tablet, [facility] #[id number], Partial fill upon patient request if the [...] Refills, Soft Stop, 01/25/23 10:30:00 EDT, Tablet, [facility] #0... Start Date: 01/25/23 [...] Team Personnel Name: Vivi Bailey NP Position: [facility] PCO Associate Professional Member Role: Lifetime Consulting Provider Address: Address: [address] [place] [address] Name: Gauri Pascual Position: [facility] RN Member Role: Primary Care Nurse Name: Lorraine Zendejas MD Position: [facility] Physician - Primary Care Member Role: PCP Address: Address: [address] [place] [address]- Care Team Related Persons Name: KENDAL PHELPS Address: home [address] [place] [address] Name: LENIN RELL Address: [address] [address] Name: RUSLAN ABREU Address: [address] Address: home [address] [place] [address] [place] Name: NAY DEL ANGEL Address: home [address] [place] [address] Name: PRAVIN PARKER Address: home [address] [place] [address] Name: ADITHYA HAYDEN Address: [address] Address: [address] [address] [place] Name: PRAVIN HAYDEN Address: home [address] [place] [address]
--- OUTSIDE RECORDS SUMMARY | 2023-11-16 17:23 | XMS_ITS | Continuity of Care Document ---
Author Organization [facility] Address [address] [place] [address]- Care Team Providers Care Wait Staff Name Role Phone Lorraine Zendejas MD Primary Care Physician [phone] Encounter [facility] Date(s): 03/28/21 - 04/27/[address] [address]- Allergies, Adverse Reactions, Alerts Substance Reaction Severity [...] 5 Refills, Maintenance, 11/16/20 15:34:00 EDT, Aerosol, [facility] #[id number], Partial fill upon patient request if the prescription is for a schedule II opioid drug., 2 puffs Inhalation 2 times a d... Start Date: 11/16/20 Status: Ordered cyclobenzaprine 10 mg oral tablet 1, tablet, By Mouth, 3 times a day, PRN, # 45 tablet, Refills 0, Tot. Refills 0, Acute, NEEDED FOR SPASM, 08/25/20 9:53:00 EST, Route to Pharmacy Electronically, [facility] #[id number], 157, cm, 06/08/20 15:12:00 EST, Height, 84.5, kg, ... Start Date: 08/25/20 Status: Ordered Lidoderm 5% film 1 patch, Topically, Daily, (remove patch(s) after 12 hours), # 30 patch, 0 Refills, Maintenance, 10/12/20 11:07:00 EST, [facility] #[id number], Partial fill upon patient request if the prescription is for a schedule II opioid drug., 1 patch Topic... Start Date: 10/12/20 Status: Ordered ProAir HFA 90 mcg/inh inhalation aerosol with adapter 2, puffs, Inhalation, Every 4 hours, PRN, # 8.5 Gm, Refills 5, Tot. Refills 5, Maintenance, 01/06/21 8:08:00 EDT, Aerosol, Route to Pharmacy Electronically, [id number], [facility] #[id number], 157, cm, 11/17/20 9:48:00 E... Start Date: [...] tablet, 0 Refills, Maintenance, 12/13/20 14:28:00 EDT, [facility] #[id number], 157, cm, 11/17/20 9:48:00 EDT, Height, 84.5, kg... Start Date: 12/13/20 Status: Ordered Xulane 150 mcg-35 mcg/24 hr transdermal film, extended release 1 patch, Topically, Every week, # 3 each, 11 Refills, Maintenance, 03/29/21 11:42:00 EDT, [facility] #[id number], 1 patch Topically Every week,x7 days, 157, [...]
--- OUTSIDE RECORDS SUMMARY | 2023-11-16 17:23 | XMS_ITS | Continuity of Care Document ---
Author Organization [facility] Address [address] [place] [address]- Care Team Providers Care Trolley Worker Name Role Phone Aashish IBARRA, Lorraine Primary Care Physician Encounter [facility] Date(s): 10/13/22 - 12/28/[address] [address] Attending Physician: Not on Staff, Attending MD [...] 08/15/22 15:08:00 EST, Route to Pharmacy Electronically, [facility] #[id number], Partial fill upon patient request if the prescription... Start Date: 08/15/22 Status: Ordered Advair HFA 115 mcg / 21 mcg 2 puffs, Inhalation, 2 times a day, # 1 each, 5 Refills, Maintenance, 05/03/22 16:02:00 EDT, Aerosol, [facility] #[id number], Partial fill upon patient request if the prescription is for a schedule II opioid drug., 2 puffs Inhalation 2 times a da... Start Date: 05/03/22 Stop Date: 10/30/22 Status: Ordered albuterol 0.083% inhalation solution 3 mL = 2.5 mg, Inhalation, Every 6 hours, PRN Wheezing/Shortness of Breath, # 60 each, 1 Refills, Maintenance, 11/09/22 13:41:00 EDT, Solution, [facility] #[id number], Partial fill upon patient request if the prescription is for a schedule II opi... Start Date: 11/09/22 Status: Ordered albuterol CFC free 90 mcg/inh inhalation aerosol 2, puffs, Inhalation, Every 6 hours, PRN, for 30 days, # 8.5 Gm, Refills 11, Tot. Refills 11, Hard Stop 04/28/23 11:45:00 EDT, 05/03/22 11:45:00 EDT, Aerosol, Route to Pharmacy Electronically, [id number], [facility]... Start Date: 05/03/22 Stop Date: 04/28/23 Status: Ordered cetirizine 5 mg oral tablet = 5 mg, By Mouth, Daily, # 30 tablet, 0 Refills, Maintenance, 11/17/22 10:48:00 EDT, Tablet, [facility] #[id number], Partial fill upon patient request if the prescription is for a schedule II opioid drug., 156, cm, 11/17/22 8:44:00 EDT, Height, 8... Start Date: 11/17/22 Status: Ordered ibuprofen 400 mg oral tablet 400 mg, 1, tablet, By Mouth, Every 4 hours, PRN, # 60 tablet, Refills 0, Tot. Refills 0, Maintenance, for pain, 11/17/22 10:49:00 EDT, Route to Pharmacy Electronically, [facility] #[id number], Partial fill upon patient request if the prescription... Start Date: 11/17/22 Status: Ordered lidocaine 1.8% topical film 1 patch, Topically, Daily, leave on up to 12 hours, # 30 each, 0 Refills, Maintenance, 11/17/22 10:47:00 EDT, Film, [facility] #[id number], Partial fill upon patient request if the prescription is for a schedule II opioid drug., 1 patch Topically... Start Date: 11/17/22 Status: Ordered MiraLax oral powder for reconstitution = 17 Gm, By Mouth, Daily, dissolve in water before taking, # 527 Gm, 0 Refills, Maintenance, 11/17/22 10:47:00 EDT, REC Powder, [facility] #[id number], Partial fill upon patient request if the [...] 2 Refills, Maintenance, 11/07/22 17:30:00 EDT, Tablet, [facility] #[id number], Partial fill upon patient request if the [...] Care Team Personnel Name: Gauri Pascual Position: [facility] RN Member Role: Primary Care Nurse Name: Lorraine Zendejas MD Position: [facility] Physician - Primary Care Member Role: PCP Address: Address: [address] [place] [address]- Care Team Related Persons Name: RELL PHELPS Address: [address] [address] Name: RUSLAN ABREU Address: [address] Address: [address] [address] [place] Name: NAY DEL ANGEL Address: [address] [place] [address] Name: PRAVIN PARKER Address: [address] [place] [address] Name: ADITHYA HAYDEN Address: [address] Address: [address] [address] [place] Name: PRAVIN HAYDEN Address: [address] [place] [address]
--- OUTSIDE RECORDS SUMMARY | 2023-11-16 17:23 | XMS_ITS | Continuity of Care Document ---
Author Organization [facility] Address [address] [place] [address]- Care Team Providers Care Operations And Maintenance Supervisor Name Role Phone Aashish IBARRA, Lorraine Primary Care Physician Encounter [facility] Date(s): 03/06/23 - 04/05/23 [facility] [address] [address] Allergies, Adverse Reactions, Alerts Substance [...] 08/15/22 15:08:00 EST, Route to Pharmacy Electronically, [facility] #[id number], Partial fill upon patient request if the prescription... Start Date: 08/15/22 Status: Ordered Advair HFA 115 mcg / 21 mcg 2 puffs, Inhalation, 2 times a day, # 1 each, 5 Refills, Maintenance, 05/03/22 16:02:00 EDT, Aerosol, [facility] #[id number], Partial fill upon patient request if the prescription is for a schedule II opioid drug., 2 puffs Inhalation 2 times a da... Start Date: 05/03/22 Stop Date: 10/30/22 Status: Ordered albuterol 0.083% inhalation solution 3 mL = 2.5 mg, Inhalation, Every 6 hours, PRN Wheezing/Shortness of Breath, # 60 each, 1 Refills, Maintenance, 11/09/22 13:41:00 EDT, Solution, [facility] #[id number], Partial fill upon patient request if the prescription is for a schedule II opi... Start Date: 11/09/22 Status: Ordered albuterol CFC free 90 mcg/inh inhalation aerosol 2, puffs, Inhalation, Every 6 hours, PRN, for 30 days, # 8.5 Gm, Refills 11, Tot. Refills 11, Hard Stop 04/28/23 11:45:00 EDT, 05/03/22 11:45:00 EDT, Aerosol, Route to Pharmacy Electronically, [id number], [facility]... Start Date: 05/03/22 Stop Date: 04/28/23 Status: Ordered cetirizine 5 mg oral tablet = 5 mg, By Mouth, Daily, # 30 tablet, 0 Refills, Maintenance, 11/17/22 10:48:00 EDT, Tablet, [facility] #[id number], Partial fill upon patient request if the prescription is for a schedule II opioid drug., 156, cm, 11/17/22 8:44:00 EDT, Height, 8... Start Date: 11/17/22 Status: Ordered Depakote 250 mg oral enteric coated tablet 1 tablet = 250 mg, By Mouth, 2 times a day, # 60 tablet, 3 Refills, Maintenance, 02/28/23 16:39:00 EDT, [facility] #[id number], Partial fill upon patient request if the prescription is for a schedule II opioid drug., 155, cm, 02/28/23 11:38:00 ED... Start Date: 02/28/23 Status: Ordered dicyclomine 20 mg oral tablet 1 tablet = 20 mg, By Mouth, 4 times a day, 30 to 60 minutes before meals, # 28 tablet, 4 Refills, Maintenance, 04/05/23 11:18:00 EDT, Tablet, [facility] #[id number], Partial fill upon patient request if the prescription is for a schedule II opioi... Start Date: 04/05/23 Stop Date: 05/10/23 Status: Ordered ibuprofen 400 mg oral tablet 400 mg, 1, tablet, By Mouth, Every 4 hours, PRN, # 60 tablet, Refills 0, Tot. Refills 0, Maintenance, for pain, 11/17/22 10:49:00 EDT, Route to Pharmacy Electronically, [facility] #[id number], Partial fill upon patient request if the prescription... Start Date: 11/17/22 Status: Ordered lidocaine 1.8% topical film 1 patch, Topically, Daily, leave on up to 12 hours, # 30 each, 0 Refills, Maintenance, 11/17/22 10:47:00 EDT, Film, [facility] #[id number], Partial fill upon patient request if the prescription is for a schedule II opioid drug., 1 patch Topically... Start Date: 11/17/22 Status: Ordered metroNIDAZOLE 0.75% topical gel 1 application, Topically, Daily at bedtime, use vaginal applicator to insert vaginally nightly for 5 nights, # 45 Gm, 0 Refills, Maintenance, 02/14/23 16:28:00 EDT, Gel, [facility] #[id number], Partial fill upon patient request if the prescriptio... Start Date: 02/14/23 Stop Date: 02/19/23 Status: Ordered metroNIDAZOLE 500 mg oral tablet 1 tablet = 500 mg, By Mouth, Every 12 hours, # 28 tablet, 0 Refills, Maintenance, 01/25/23 16:14:00EDT, Tablet, [facility] #[id number], Partial fill upon patient request if the prescription is for a schedule II opioid drug., 156, cm, 01/25/23 15... Start Date: 01/25/23 Stop Date: 02/08/23 Status: Ordered MiraLax oral powder for reconstitution = 17 Gm, By Mouth, Daily, dissolve in water before taking, # 527 Gm, 0 Refills, Maintenance, 11/17/22 10:47:00 EDT, REC Powder, [facility] #[id number], Partial fill upon patient request if the prescription is for a schedule II opioid drug., 17 Gm... Start Date: 11/17/22 Status: Ordered morphine 15 mg oral tablet, immediate release 1 tablet = 15 mg, By Mouth, Every 4 hours, PRN as needed for pain, # 10 tablet, 0 Refills, Maintenance, 04/03/23 19:18:00 EDT, Tablet, [facility] #[id number], Partial fill upon patient request if the prescription is for a schedule II opioid drug.... Start Date: 04/03/23 Status: Ordered ondansetron 4 mg oral tablet, disintegrating 1 tablet = 4 mg, By Mouth, Every 8 hours, PRN as needed for nausea/vomiting, # 10 tablet, 0 Refills, Maintenance, 04/03/23 19:22:00 EDT, DIS Tablet, [facility] #[id number], Partial fill upon patient request if the [...] 3 Refills, Soft Stop, 01/25/23 10:30:00 EDT, [facility] #[facility]... Start Date: 01/25/23 Status: Ordered Problem [...] Team Personnel Name: Vivi Bailey NP Position: [facility] PCO Associate Professional Member Role: Lifetime Consulting Provider Address: Address: [address] [place] [address]- Name: Gauri Pascual Position: [facility] RN Member Role: Primary Care Nurse Name: Lorraine Zendejas MD Position: [facility] Physician - Primary Care Member Role: PCP Address: Address: [address] [place] [address]- Care Team Related Persons Name: KENDAL PHELPS Address: home [address] [place] [address] Name: RELL PHELPS Address: [address] [address] Name: RUSLAN ABREU Address: [address] Address: home [address] [place] [address] [place] Name: NAY DEL ANGEL Address: [address] [place] [address] Name: PRAVIN PARKER Address: home [address] [place] [address] Name: ADITHYA HAYDEN Address: [address] Address: [address] [address] [place] Name: PRAVIN HAYDEN Address: [address] [place] [address]
--- OUTSIDE RECORDS SUMMARY | 2023-11-16 17:23 | XMS_ITS | Continuity of Care Document ---
Author Organization [facility] Address [address] [place] [address]- Care Team Providers Care Sweep Press Operator Name Role Phone Aashish IBARRA, Lorraine Primary Care Physician [phone] Encounter [facility] Date(s): 11/20/19 - 11/30/[address] [address]- [facility] Attending Physician: Roque Villela Admitting Physician: [...] 5 Refills, Maintenance, 11/03/19 12:31:00 EDT, Aerosol, [facility] #[id number], 157, cm, 07/31/19 8:49:00 EST, Height, 84.5, kg, 04/29/19 4:4... Start Date: 11/03/19 Status: Ordered Ortho Micronor 0.35 mg oral tablet 1 tablet = 0.35 mg, By Mouth, Daily, take SAME time daily, # 28 tablet, 11 Refills, Maintenance, 11/08/19 11:50:28 EST, Tablet Start Date: 06/13/19 Status: [...] 12:31:00 EDT, Aerosol, Route to Pharmacy Electronically, [id number], [facility] #[id number], 157, cm, 07/31/19 8:49:00... Start Date: 11/03/19 [...] # 18 tablet, 1 Refills, Soft Stop, [facility] #[id number], 157, cm, 07/31/19 8:49:00 EST, Height, 84.5, [...]
--- OUTSIDE RECORDS SUMMARY | 2023-11-16 17:23 | XMS_ITS | Continuity of Care Document ---
Author Organization [facility] Address [address] [place] [address]- Care Team Providers Care Corporation Officer Name Role Phone Aashish IBARRA, Lorraine Primary Care Physician Encounter [facility] Date(s): 09/03/23 - 10/03/23 [facility] [address] [address] Attending Physician: AdmRoque vasquez Admitting Physician: Admtr, [...] 08/15/22 15:08:00 EST, Route to Pharmacy Electronically, [facility] #[id number], Partial fill upon patient request if the prescription... Start Date: 08/15/22 Status: Ordered Advair HFA 115 mcg / 21 mcg 2 puffs, Inhalation, 2 times a day, # 1 each, 5 Refills, Maintenance, 05/03/22 16:02:00 EDT, Aerosol, [facility] #[id number], Partial fill upon patient request if the prescription is for a schedule II opioid drug., 2 puffs Inhalation 2 times a da... Start Date: 05/03/22 Stop Date: 10/30/22 Status: Ordered albuterol 0.083% inhalation solution 3 mL = 2.5 mg, Inhalation, Every 6 hours, PRN for wheezing, # 25 each, 0 Refills, Maintenance, 05/29/23 20:07:00 EDT, Solution, [facility] #[id number], Partial fill upon patient request if the prescription is for a schedule II opioid drug., 156,... Start Date: 05/29/23 Status: Ordered cetirizine 5 mg oral tablet = 5 mg, By Mouth, Daily, # 30 tablet, 0 Refills, Maintenance, 11/17/22 10:48:00 EDT, [facility] #[id number], Partial fill upon patient request if the prescription is for a schedule II opioid drug., 156, cm, 11/17/22 8:44:00 EDT, Height, 8... Start Date: 11/17/22 Status: Ordered Depakote 250 mg oral enteric coated tablet 1 tablet = 250 mg, By Mouth, 2 times a day, # 60 tablet, 3 Refills, Maintenance, 02/28/23 16:39:00 EDT, [facility] #[id number], Partial fill upon patient request if the prescription is for a schedule II opioid drug., 155, cm, 02/28/23 11:38:00 ED... Start Date: 02/28/23 Status: Ordered dicyclomine 20 mg oral tablet 1 tablet = 20 mg, By Mouth, 4 times a day, 30 to 60 minutes before meals, # 28 tablet, 4 Refills, Maintenance, 04/05/23 11:18:00 EDT, [facility] #[id number], Partial fill upon patient request if the prescription is for a schedule II opioi... Start Date: 04/05/23 Stop Date: 05/10/23 Status: Ordered ibuprofen 400 mg oral tablet 400 mg, 1, tablet, By Mouth, Every 4 hours, PRN, # 60 tablet, Refills 0, Tot. Refills 0, Maintenance, for pain, 11/17/22 10:49:00 EDT, Route to Pharmacy Electronically, [facility] #[id number], Partial fill upon patient request if the prescription... Start Date: 11/17/22 Status: Ordered MiraLax oral powder for reconstitution = 17 Gm, By Mouth, Daily, dissolve in water before taking, # 527 Gm, 0 Refills, Maintenance, 11/17/22 10:47:00 EDT, REC Powder, [facility] #[id number], Partial fill upon patient request if the prescription is for a schedule II opioid drug., 17 Gm... Start Date: 11/17/22 Status: Ordered Nexplanon 68 mg subcutaneous implant 1 each = 68 mg, Subcutaneous Infusion, Once, Left arm, placed 07/23/2023 Lot #[id number], # 1 each, 0 Refills, Maintenance, 07/23/23 16:11:00 EST, Partial fill upon patient request if the prescription is for a schedule II opioid drug. Start Date: 07/23/23 Status: Ordered ondansetron 4 mg oral tablet, disintegrating 1 tablet = 4 mg, By Mouth, Every 8 hours, PRN Nausea & Vomiting, # 10 tablet, 0 Refills, Maintenance, 09/15/23 11:34:00 EST, Tablet, [facility] #[id number], Partial fill upon patient requestif the prescription [...] Refills, Soft Stop, 01/25/23 10:30:00 EDT, Tablet, [facility] #0... Start Date: 01/25/23 Status: Ordered [...] Name: Vivi Bailey NP Position: [facility] PCO Associate Professional Member Role: Lifetime Consulting Provider Address: Address: [address] [place] [address]- Name: Gauri Pascual Position: [facility] RN Member Role: Primary Care Nurse Name: Lorraine Zendejas MD Position: [facility] Physician - Primary Care Member Role: PCP Address: Address: [address] [place] [address]- Care Team Related Persons Name: KENDAL PHELPS Address: home [address] [place] [address] Name: RELL PHELPS Address: [address] [address] Name: RUSLAN ABREU Address: [address] Address: [address] [place] [address] [place] Name: NAY DEL ANGEL Address: [address] [place] [address] Name: PRAVIN PARKER Address: [address] [place] [address] Name: ADITHYA HAYDEN Address: [address] Address: [address] [place] [address] [place] Name: PRAVIN HAYDEN Address: [address] [place] [address]
--- OUTSIDE RECORDS SUMMARY | 2023-11-16 17:23 | XMS_ITS | Continuity of Care Document ---
Author Organization [facility] Address [address] [place] [address]- Care Team Providers Care Hazardous Substances Engineer Name Role Phone Aashish IBARRA, Lorraine Primary Care Physician Encounter [facility] Date(s): 05/30/23 - 07/04/[address] [address]- Attending Physician: Not on Staff, Attending MD [...] 08/15/22 15:08:00 EST, Route to Pharmacy Electronically, [facility] #[id number], Partial fill upon patient request if the prescription... Start Date: 08/15/22 Status: Ordered Advair HFA 115 mcg / 21 mcg 2 puffs, Inhalation, 2 times a day, # 1 each, 5 Refills, Maintenance, 05/03/22 16:02:00 EDT, Aerosol, [facility] #[id number], Partial fill upon patient request if the prescription is for a schedule II opioid drug., 2 puffs Inhalation 2 times a da... Start Date: 05/03/22 Stop Date: 10/30/22 Status: Ordered albuterol 0.083% inhalation solution 3 mL = 2.5 mg, Inhalation, Every 6 hours, PRN Wheezing/Shortness of Breath, # 60 each, 1 Refills, Maintenance, 11/09/22 13:41:00 EDT, Solution, [facility] #[id number], Partial fill upon patient request if the prescription is for a schedule II opi... Start Date: 11/09/22 Status: Ordered albuterol 0.083% inhalation solution 3 mL = 2.5 mg, Inhalation, Every 6 hours, PRN for wheezing, # 25 each, 0 Refills, Maintenance, 05/29/23 20:07:00 EDT, Solution, [facility] #[id number], Partial fill upon patient request if the prescription is for a schedule II opioid drug., 156,... Start Date: 05/29/23 Status: Ordered cetirizine 5 mg oral tablet = 5 mg, By Mouth, Daily, # 30 tablet, 0 Refills, Maintenance, 11/17/22 10:48:00 EDT, [facility] #[id number], Partial fill upon patient request if the prescription is for a schedule II opioid drug., 156, cm, 11/17/22 8:44:00 EDT, Height, 8... Start Date: 11/17/22 Status: Ordered Depakote 250 mg oral enteric coated tablet 1 tablet = 250 mg, By Mouth, 2 times a day, # 60 tablet, 3 Refills, Maintenance, 02/28/23 16:39:00 EDT, [facility] #[id number], Partial fill upon patient request if the prescription is for a schedule II opioid drug., 155, cm, 02/28/23 11:38:00 ED... Start Date: 02/28/23 Status: Ordered dicyclomine 20 mg oral tablet 1 tablet = 20 mg, By Mouth, 4 times a day, 30 to 60 minutes before meals, # 28 tablet, 4 Refills, Maintenance, 04/05/23 11:18:00 EDT, Tablet, [facility] #[id number], Partial fill upon patient request if the prescription is for a schedule II opioi... Start Date: 04/05/23 Stop Date: 05/10/23 Status: Ordered ibuprofen 400 mg oral tablet 400 mg, 1, tablet, By Mouth, Every 4 hours, PRN, # 60 tablet, Refills 0, Tot. Refills 0, Maintenance, for pain, 11/17/22 10:49:00 EDT, Route to Pharmacy Electronically, [facility] #[id number], Partial fill upon patient request if the prescription... Start Date: 11/17/22 Status: Ordered lidocaine 1.8% topical film 1 patch, Topically, Daily, leave on up to 12 hours, # 30 each, 0 Refills, Maintenance, 11/17/22 10:47:00 EDT, Film, [facility] #[id number], Partial fill upon patient request if the prescription is for a schedule II opioid drug., 1 patch Topically... Start Date: 11/17/22 Status: Ordered metroNIDAZOLE 0.75% topical gel 1 application, Topically, Daily at bedtime, use vaginal applicator to insert vaginally nightly for 5 nights, # 45 Gm, 0 Refills, Maintenance, 02/14/23 16:28:00 EDT, Gel, [facility] #[id number], Partial fill upon patient request if the prescriptio... Start Date: 02/14/23 Stop Date: 02/19/23 Status: Ordered metroNIDAZOLE 500 mg oral tablet 1 tablet = 500 mg, By Mouth, Every 12 hours, # 28 tablet, 0 Refills, Maintenance, 01/25/23 16:14:00EDT, Tablet, [facility] #[id number], Partial fill upon patient request if the prescription is for a schedule II opioid drug., 156, cm, 01/25/23 15... Start Date: 01/25/23 Stop Date: 02/08/23 Status: Ordered MiraLax oral powder for reconstitution = 17 Gm, By Mouth, Daily, dissolve in water before taking, # 527 Gm, 0 Refills, Maintenance, 11/17/22 10:47:00 EDT, REC Powder, [facility] #[id number], Partial fill upon patient request if the prescription is for a schedule II opioid drug., 17 Gm... Start Date: 11/17/22 Status: Ordered morphine 15 mg oral tablet, immediate release 1 tablet = 15 mg, By Mouth, Every 4 hours, PRN as needed for pain, # 10 tablet, 0 Refills, Maintenance, 04/03/23 19:18:00 EDT, Tablet, [facility] #[id number], Partial fill upon patient request if the prescription is for a schedule II opioid drug.... Start Date: 04/03/23 Status: Ordered ondansetron 4 mg oral tablet, disintegrating 1 tablet = 4 mg, By Mouth, Every 8 hours, PRN as needed for nausea/vomiting, # 10 tablet, 0 Refills, Maintenance, 04/03/23 19:22:00 EDT, DIS Tablet, [facility] #[id number], Partial fill upon patient request if the prescription is for a schedule I... Start Date: 04/03/23 Status: Ordered predniSONE 20 mg oral tablet 1 tablet = 20 mg, By Mouth, 2 times a day, # 10 tablet, 0 Refills, Soft Stop, 05/29/23 20:12:00 EDT, Tablet, [facility] #[id number], Partial fill upon patient request if the [...] 3 Refills, Soft Stop, 01/25/23 10:30:00 EDT, [facility] #[facility]... Start Date: 01/25/23 Status: [...] NP Position: [facility] PCO Associate Professional Member Role: Lifetime Consulting Provider Address: Address: [address] [place] [id number] Name: Gauri Pascual Position: [facility] RN Member Role: Primary Care Nurse Name: Lorraine Zendejas MD Position: [facility] Physician - Primary Care Member Role: PCP Address: Address: [address] [place] [address]- Care Team Related Persons Name: KENDAL PHELPS Address: home [address] [place] [address] Name: RELL PHELPS Address: [address] [address] Name: RUSLAN ABREU Address: [address] Address: home [address] [place] [address] [place] Name: NAY DEL ANGEL Address: home [address] [place] [address] Name: PRAVIN PARKER Address: home [address] [place] [address] Name: ADITHYA HAYDEN Address: [address] Address: home [address] [place] [address] [place] Name: PRAVIN HAYDEN Address: [address] [place] [address]
--- OUTSIDE RECORDS SUMMARY | 2023-11-16 17:23 | XMS_ITS | Continuity of Care Document ---
Author Organization [facility] Address [address], [address], [address] [place] [address]- Care Team Providers Care Reflesher Name Role Phone Aashish IBARRA, Lorraine Primary Care Physician Encounter [facility] Date(s): 02/13/23 - 03/15/23 [facility] [address], [address], [address] [place] [id number] Allergies, Adverse Reactions, Alerts Substance Reaction [...] 08/15/22 15:08:00 EST, Route to Pharmacy Electronically, [facility] #[id number], Partial fill upon patient request if the prescription... Start Date: 08/15/22 Status: Ordered Advair HFA 115 mcg / 21 mcg 2 puffs, Inhalation, 2 times a day, # 1 each, 5 Refills, Maintenance, 05/03/22 16:02:00 EDT, Aerosol, [facility] #[id number], Partial fill upon patient request if the prescription is for a schedule II opioid drug., 2 puffs Inhalation 2 times a da... Start Date: 05/03/22 Stop Date: 10/30/22 Status: Ordered albuterol 0.083% inhalation solution 3 mL = 2.5 mg, Inhalation, Every 6 hours, PRN Wheezing/Shortness of Breath, # 60 each, 1 Refills, Maintenance, 11/09/22 13:41:00 EDT, Solution, [facility] #[id number], Partial fill upon patient request if the prescription is for a schedule II opi... Start Date: 11/09/22 Status: Ordered albuterol CFC free 90 mcg/inh inhalation aerosol 2, puffs, Inhalation, Every 6 hours, PRN, for 30 days, # 8.5 Gm, Refills 11, Tot. Refills 11, Hard Stop 04/28/23 11:45:00 EDT, 05/03/22 11:45:00 EDT, Aerosol, Route to Pharmacy Electronically, [id number], [facility]... Start Date: 05/03/22 Stop Date: 04/28/23 Status: Ordered cetirizine 5 mg oral tablet = 5 mg, By Mouth, Daily, # 30 tablet, 0 Refills, Maintenance, 11/17/22 10:48:00 EDT, Tablet, [facility] #[id number], Partial fill upon patient request if the prescription is for a schedule II opioid drug., 156, cm, 11/17/22 8:44:00 EDT, Height, 8... Start Date: 11/17/22 Status: Ordered Depakote 250 mg oral enteric coated tablet 1 tablet = 250 mg, By Mouth, 2 times a day, # 60 tablet, 3 Refills, Maintenance, 02/28/23 16:39:00 EDT, [facility] #[id number], Partial fill upon patient request if the prescription is for a schedule II opioid drug., 155, cm, 02/28/23 11:38:00 ED... Start Date: 02/28/23 Status: Ordered ibuprofen 400 mg oral tablet 400 mg, 1, tablet, By Mouth, Every 4 hours, PRN, # 60 tablet, Refills 0, Tot. Refills 0, Maintenance, for pain, 11/17/22 10:49:00 EDT, Route to Pharmacy Electronically, [facility] #[id number], Partial fill upon patient request if the prescription... Start Date: 11/17/22 Status: Ordered lidocaine 1.8% topical film 1 patch, Topically, Daily, leave on up to 12 hours, # 30 each, 0 Refills, Maintenance, 11/17/22 10:47:00 EDT, Film, [facility] #[id number], Partial fill upon patient request if the prescription is for a schedule II opioid drug., 1 patch Topically... Start Date: 11/17/22 Status: Ordered metroNIDAZOLE 0.75% topical gel 1 application, Topically, Daily at bedtime, use vaginal applicator to insert vaginally nightly for 5 nights, # 45 Gm, 0 Refills, Maintenance, 02/14/23 16:28:00 EDT, Gel, [facility] #[id number], Partial fill upon patient request if the prescriptio... Start Date: 02/14/23 Stop Date: 02/19/23 Status: Ordered metroNIDAZOLE 500 mg oral tablet 1 tablet = 500 mg, By Mouth, Every 12 hours, # 28 tablet, 0 Refills, Maintenance, 01/25/23 16:14:00EDT, Tablet, [facility] #[id number], Partial fill upon patient request if the prescription is for a schedule II opioid drug., 156, cm, 01/25/23 15... Start Date: 01/25/23 Stop Date: 02/08/23 Status: Ordered MiraLax oral powder for reconstitution = 17 Gm, By Mouth, Daily, dissolve in water before taking, # 527 Gm, 0 Refills, Maintenance, 11/17/22 10:47:00 EDT, REC Powder, [facility] #[id number], Partial fill upon patient request if the [...] Refills, Soft Stop, 01/25/23 10:30:00 EDT, Tablet, [facility] #[facility]... Start Date: 01/25/23 Status: [...] Team Personnel Name: Vivi Bailey NP Position: [facility] PCO Associate Professional Member Role: Lifetime Consulting Provider Address: Address: [address] [place] [address]- Name: Gauri Pascual Position: [facility] RN Member Role: Primary Care Nurse Name: Lorraine Zendejas MD Position: [facility] Physician - Primary Care Member Role: PCP Address: Address: [address] [place] [address]- Care Team Related Persons Name: KENDAL PHELPS Address: home [address] [place] [address] Name: RELL PHELPS Address: [address] [address] Name: RUSLAN ABREU Address: [address] Address: [address] [place] [address] Name: NAY DEL ANGEL Address: [address] [place] [address] Name: PRAVIN PARKER Address: [address] [place] [address] Name: ADITHYA HAYDEN Address: [address] Address: [address] [facility] [address] [place] [address] [place] Name: DOVElyssa PRAVIN Address: home [address] [place] [address]
--- OUTSIDE RECORDS SUMMARY | 2023-11-16 17:23 | XMS_ITS | Continuity of Care Document ---
Author Organization [facility] Address [address] [place] [address]- Care Team Providers Care Process Safety Manager Name Role Phone Lorraine Zendejas MD Primary Care Physician [phone] Encounter [facility] Date(s): 02/10/20 - 03/11/[address] [address]- [facility] Allergies, Adverse Reactions, Alerts Substance Reaction Severity [...] 5 Refills, Maintenance, 11/03/19 12:31:00 EDT, Aerosol, [facility] #[id number], 157, cm, 07/31/19 8:49:00 EST, Height, 84.5, [...] 12:31:00 EDT, Aerosol, Route to Pharmacy Electronically, [id number], [facility] #[id number], 157, cm, 07/31/19 8:49:00... Start Date: 11/03/19 [...] # 18 tablet, 1 Refills, Soft Stop, [facility] #[id number], 157, cm, 07/31/19 8:49:00 EST, Height, 84.5, [...]
--- OUTSIDE RECORDS SUMMARY | 2023-11-16 17:23 | XMS_ITS | Continuity of Care Document ---
Author Organization [facility] Address [address] [facility], [address] [place] [address]- Care Team Providers Care Residential Roofer Name Role Phone Lorraine Zendejas MD Primary Care Physician Encounter [facility] Date(s): 09/16/21 - 10/16/21 [facility] [address] [place] [address]- Allergies, Adverse Reactions, Alerts Substance Reaction Severity [...] 5 Refills, Maintenance, 11/16/20 15:34:00 EDT, Aerosol, [facility] #[id number], Partial fill upon patient request if the prescription is for a schedule II opioid drug., 2 puffs Inhalation 2 times a d... Start Date: 11/16/20 Status: Ordered aspirin 81 mg oral delayed release tablet 2 tablet = 162 mg, By Mouth, Daily, start at 12 weeks, 09/11/21, # 90 tablet, 0 Refills, Maintenance,08/16/21 13:37:00 EST, CR Tablet, [facility] #[id number], Partial fill upon patient request ifthe prescription is for a schedule II opioid drug.,... Start Date: 08/16/21 Status: Ordered Benadryl 25 mg oral capsule 2 capsule = 50 mg, By Mouth, Daily at bedtime, PRN Pain , Moderate, # 100 capsule, 0 Refills, Maintenance, 10/04/21 2:02:00 EST, Capsule, [facility] #[id number], Partial fill upon patient request if the prescription is for a schedule II opioid dr... Start Date: 10/04/21 Status: Ordered clotrimazole 1% vaginal cream with applicator 1 application, Vaginally, Daily at bedtime, Apply vaginally each night for 1 week., # 45 Gm, 0 Refills, Maintenance, 10/12/21 14:02:00 EST, Cream, [facility] #[id number], Partial fill upon patient request if the prescription is for a schedule II... Start Date: 10/12/21 Status: Ordered Lidoderm 5% film 1 patch, Topically, Daily, (remove patch(s) after 12 hours), # 30 patch, 0 Refills, Maintenance, 10/12/20 11:07:00 EST, [facility] #[id number], Partial fill upon patient request if the prescription is for a schedule II opioid drug., 1 patch Topic... Start Date: 10/12/20 Status: Ordered MiraLax oral powder for reconstitution = 17 Gm, By Mouth, Daily, dissolve in water before taking, # 527 Gm, 0 Refills, Maintenance, 08/16/21 13:56:00 EST, REC Powder, [facility] #[id number], Partial fill upon patient request if the prescription is for a schedule II opioid drug., 17 Gm... Start Date: 08/16/21 Status: Ordered Multivitamins with Folic Acid 1 mg oral tablet 1 tablet, By Mouth, Daily, # 90 tablet, 3 Refills, Maintenance, 09/16/21 15:48:00 EST, Tablet, [facility] #[id number], Partial fill upon patient request if the prescription is for a schedule II opioid drug., 1 tablet By Mouth Daily, 157, cm, 0... Start Date: 09/16/21 Status: Ordered Multivitamins with Vitamin B Complex, Vitamin C, Minerals and L- Methylfolate oral capsule 1 capsule, By Mouth, Daily, # 30 capsule, 11 Refills, Maintenance, 08/05/21 17:50:00 EST, Capsule, [facility] #[id number], Partial fill upon patient request if the prescription is for a scheduleII opioid drug., 1 capsule By Mouth Daily, 157, cm,... Start Date: 08/05/21 Status: Ordered ProAir HFA 90 mcg/inh inhalation aerosol with adapter 2, puffs, Inhalation, Every 4 hours, PRN, # 8.5 Gm, Refills 5, Tot. Refills 5, Maintenance, 01/06/21 8:08:00 EDT, Aerosol, Route to Pharmacy Electronically, [id number], [facility] #[id number], 157, cm, 11/17/20 9:48:00 E... Start Date: 01/06/21 Status: Ordered Reglan 5 mg oral tablet 2 tablet = 10 mg, By Mouth, Once, # 28 tablet, 0 Refills, Soft Stop, 10/04/21 2:02:00 EST, Tablet, [facility] #[id number], Partial fill upon patient request if the [...]
--- NOTE | 2023-11-16 17:31 | ECG_ITS ---
Test Reason : SYNCOPEE Blood Pressure : / mmHG Vent. Rate : 106 BPM Atrial Rate : 106 BPM P-R Int : 126 ms QRS Dur : 086 ms QT Int : 324 ms P-R-T Axes : 043 022 010 degrees QTc Int : 430 ms Sinus tachycardia Otherwise normal ECG When compared with ECG of 18-MAY-2021 02:41, Vent. rate has increased BY 46 BPM Referred By: Carolyn Hurt Electronically Signed By:Ruiz Keith
[2023-11-16 18:10] LABS: Basophils Percent Auto 0.2 % (0-2); Hematocrit 41.5 % (37.0-47.0); Hemoglobin 13.9 g/dl (12.0-16.0); Imm Gran Abs Auto 0.05 X10*3/uL (0.00-0.03); Imm Gran Pct Auto 0.4 % (0.0-0.4); Lymphocytes Absolute Auto 0.5 X10*3/uL (1.2-4.9); Lymphocytes Percent Auto 4.3 % (20-40); MANUAL DIFF FLAG SCAN; Mean Corpuscular HGB Conc 33.5 g/dl (31.0-35.0); Mean Corpuscular Hemoglobin 25.8 pg (27.0-33.0); Mean Platelet Volume 9.2 fL (9.4-12.3); Monocytes Absolute Auto 0.5 X10*3/uL (0.1-1.2); Monocytes Percent Auto 4.3 % (2-11); Neutrophils Absolute Auto 11.4 x10*3/uL (2.0-8.3); Neutrophils Percent Auto 90.8 % (45-73); Platelet Count 301 X10*3/uL (160-400); Red Blood Count 5.39 X10*6/uL (4.20-5.50); Red Cell Distribution Width 13.7 % (11.0-16.0); SCAN SMEAR FLAG 1; White Blood Count 12.5 X10*3/uL (4.8-10.8)
[2023-11-16] MEDS: ondansetron HCL 4 MG/2 ML VIAL IVPUSH (18:11)
[2023-11-16] MEDS: 0.9 % Sodium Chloride 1,000 ML 999 ML IVCONT ×2 (18:11→19:29)
[2023-11-16 18:20] LABS: Alanine Aminotransferase 69 U/L (0-31); Alkaline Phosphatase 90 U/L (39-117); Anion Gap 11 (12-20); Aspartate Amino Transferase 58 U/L (5-31); Bilirubin Total 0.6 mg/dL (0.0-1.0); Blood Urea Nitrogen 11 mg/dL (9-16); Calcium 8.9 mg/dL (8.4-10.2); Carbon Dioxide 24 mmol/L (22-29); Chloride 107 mmol/L (96-108); Creatinine Clr Calc Pharmacy 121.3; Estimated Glomerular Filt Rate > 60; Glucose Random 112 mg/dL (60-115); Lipase 18 U/L (8-78); Potassium 3.8 mmol/L (3.3-5.1); Sodium 138 mmol/L (135-145); Total Protein 8.2 g/dL (6.5-8.0)
[2023-11-16 18:42] LABS: Influenza A PCR NEGATIVE (Negative); Influenza B PCR NEGATIVE (Negative); Resp Syncy Virus RNA Qual PCR NEGATIVE (Negative); SARS COV2 PCR INHOUSE NEGATIVE (Negative)
[2023-11-16 19:05] LABS: HCG Quantitative < 2 mIU/mL
[2023-11-16 19:07] LABS: SLIDE REVIEW VERIFIED
[2023-11-16] MEDS: Acetaminophen 325 MG TABLET 975 MG PO (19:28)
[2023-11-16] MEDS: Ketorolac Tromethamine 30 MG/ML VIAL IVPUSH (20:39)
[2023-11-16 20:49] LABS: CDiff Gene PCR NEGATIVE (Negative)
[2023-11-16 20:50] LABS: UPreg QC Valid YES; Urine Pregnancy NEGATIVE (NEGATIVE)
[2023-11-16 20:57] LABS: Appearance Urine Cloudy; Color Urine Yellow; Glucose Urine UA Negative (Negative); Leukocyte Esterase Urine Negative (Negative); Nitrite Urine Negative (Negative); PH 6.5 (5.0-9.0); Specific Gravity - Urine 1.025 (1.005-1.025); Urine Blood Negative (Negative); Urine Ketones Negative (Negative); Urine Protein Negative (Neg-Trace)
[2023-11-17 09:54] LABS: Adenovirus F 40/41 Not Detected (Not Detect.); Astrovirus Not Detected (Not Detect.); Campylobacter Not Detected (Not Detect.); Cryptosporidium Not Detected (Not Detect.); Cyclospora cayetanensis Not Detected (Not Detect.); E. coli EAEC Not Detected (Not Detect.); E. coli EPEC Not Detected (Not Detect.); E. coli ETEC Not Detected (Not Detect.); E. coli STEC Not Detected (Not Detect.); Entamoeba histolytica Not Detected (Not Detect.); Giardia lamblia Not Detected (Not Detect.); Plesiomonas shigelloides Not Detected (Not Detect.); Rotavirus A Not Detected (Not Detect.); Salmonella Not Detected (Not Detect.); Sapovirus Detected (Not Detect.); Shigella sp./EIEC Not Detected (Not Detect.); Vibrio Not Detected (Not Detect.); Vibrio Cholerae Not Detected (Not Detect.); Yersinia enterocolitica Not Detected (Not Detect.)
== END 2023-11-16 22:34 | disposition home or self-care (01) ==
PROVIDERS: Nurse Practitioner Family; Physician Assistant; Emergency Provider Student in an Organized Health Care Education/Training Program; PCP Internal Medicine
DX: K52.9 Noninfective gastroenteritis and colitis, unspecified (principal); J45.909 Unspecified asthma, uncomplicated
CPT/HCPCS: 0241U; 80053; 81003; 81025; 83690; 84702; 85025; 87493; 87507; 93005; 96361; 96374; 96375; 99284; 99285; J1885; J2405

== ENCOUNTER → 2023-11-16 17:31 | Outpatient (BNV) | payer OTHER, SELFPAY | PROVIDERS: Emergency Provider Student in an Organized Health Care Education/Training Program; PCP Internal Medicine; Visit Provider Internal Medicine Cardiovascular Disease | DX: R55 Syncope and collapse (principal) | CPT/HCPCS: 93010 ==